=== PATIENT | female | born 1950 | race Hispanic/Latino ===

== ENCOUNTER 2019-06-15 12:25 | Emergency (ER) | payer OTHER ==
--- OUTSIDE RECORDS SUMMARY | 2019-06-15 12:27 | XMS REPORT | Clinical Summary ---
:1950 Author Organization [facility] Address [address] [place] [address] Care Team Providers Name Role Phone Asked, No Pcp Primary Care Provider Unavailable Allergies Active Allergy Reactions Severity Noted Date Comments Ciprofloxacin Rash Low 02/22/2017 Penicillins Hives 02/22/2017 Medications Medication Sig Dispensed Refills Start Date End Date Status lactulose (CHRONULAC) 10 0 02/04/2017 Active gram/15 mL solution propranolol LA (INDERAL 0 02/18/2017 Active LA) 60 MG 24 hr capsule XIFAXAN 550 mg tablet 0 01/28/2017 Active furosemide (LASIX) 20 mg 0 12/27/2016 Active tablet enoxaparin (LOVENOX) 100 0 02/18/2017 Active mg/mL syringe spironolactone Take 100 mg by 0 Active (ALDACTONE) 100 MG tablet mouth daily. Active Problems Problem Noted Date Postmenopausal bleeding 02/23/2017 Family History Medical History Relation Name Comments No Known Problems Father No Known Problems Mother Relation Name Status Comments Father Mother Social History Tobacco Use Types Packs/Day Years Used Date Never Smoker Smokeless Tobacco: Never Used Alcohol Use Drinks/Week oz/Week Comments No Sex Assigned at Date Recorded Not on file Job Start Date Occupation Industry Not on file Not on file Not on file Travel History Travel Start Travel End No recent travel history available. Last Filed Vital Signs Not on file Plan of Treatment Health Maintenance Due Date Last Done Comments BREAST CANCER SCREENING 2000 COLONOSCOPY SCREENING 2000 SHINGLES VACCINES (#1) 2000 65+ PNEUMOCOCCAL VACCINE (1 of 2 - PCV13) 2015 INFLUENZA VACCINE 05/17/2019 Results Not on fileafter 06/14/2018 Insurance Payer Benefit Plan / Subscriber ID Effective Dates Phone Address Type Group MEDICARE MEDICARE PART A xxxxxxxxxx 2015-Present [place], [place] Medicare AND B Advance Directives For more information, please contact: [phone] Type Date Recorded Patient Puller Through Explanation Advance Directives, Living Will and Medical Power of Hack Driver
--- OUTSIDE RECORDS SUMMARY | 2019-06-15 12:27 | XMS REPORT | Clinical Summary ---
:1950 Author Organization [facility] Address [address] [place] [address] Care Team Providers Name Role Phone Cristi Neal Primary Care Provider Allergies Active Allergy Reactions Severity Noted Date Comments Ciprofloxacin Other (See Comments) 12/08/2015 Redness at injection site Penicillins Rash Low 11/05/2015 Medications Medication Sig Dispensed Refills Start Date End Date Status furosemide (LASIX) Take 20 mg 0 Active 20 MG tablet by mouth daily. rifAXIMin 550 mg Take 1 180 tablet 1 12/15/2018 Active TabIndications: tablet (550 Hepatic mg total) by encephalopathy mouth 2 (HCC), Other (two) times cirrhosis of liver daily. (HCC), Other ascites, Screening for cancer, Portal hypertension (HCC), Hyperkalemia lactulose Take 30 mLs 2700 mL 0 06/05/2019 Active (CHRONULAC) 10 (20 g total) gram/15 mL (15 mL) by mouth 3 solution (three) times daily. lactulose Take 30 mLs 2700 mL 9 05/03/2017 07/25/2018 Discontinued (CHRONULAC) 20 (20 g total) gram/30 mL by mouth 3 solutionIndications: (three) Other cirrhosis of times daily. liver (HCC), Other ascites, Hepatic encephalopathy (HCC), Screening for cancer, Portal hypertension (HCC), Hyperkalemia rifAXIMin 550 mg Take 1 60 tablet 6 11/03/2017 12/15/2018 Discontinued TabIndications: tablet (550 Hepatic mg total) by encephalopathy mouth 2 (HCC), Other (two) times cirrhosis of liver daily. (HCC), Other ascites, Screening for cancer, Portal hypertension (HCC), Hyperkalemia spironolactone Take 1 90 tablet 2 01/02/2018 01/02/2019 (ALDACTONE) 50 MG tablet (50 tabletIndications: mg total) by Other cirrhosis of mouth daily. liver (HCC), Other ascites, Hepatic encephalopathy (HCC), Screening for cancer, Portal hypertension (HCC), Hyperkalemia furosemide (LASIX) Take 1 90 tablet 2 04/10/2018 07/25/2018 Discontinued 20 MG tablet (20 tabletIndications: mg total) by Other cirrhosis of mouth daily. liver (HCC), Other ascites, Hepatic encephalopathy (HCC), Screening for cancer, Portal hypertension (HCC), Hyperkalemia Active Problems Problem Noted Date Abnormal magnetic resonance imaging of chest 04/21/2018 Screening for cancer 10/26/2016 Fatty liver disease, nonalcoholic 05/04/2016 Acute kidney injury 11/08/2015 Acute confusion 11/07/2015 Cirrhosis 11/05/2015 Last Assessment & Plan: Cirrhosis with decompensation symptoms (ascites, varices) diagnosed via CT imaging in September 2015. Etiology unknown at this time. ethnicity and obesity are risk factors for cirrhosis due to non-alcoholic fatty liver disease. Full hepatic work workup and MRI ordered today to screen for viral, autoimmune and genetic causes of liver disease. Ascites 11/05/2015 Last Assessment & Plan: Ascites for diagnosed with admission to outside hospital in August 2015 and September 2015. Treated with lasix 20 mg and spironolactone 100 mg daily. Mild edema in lower extremity today. No history of Paracentesis. Discussed importance of compliance with medications and following a low sodium diet restricted to less than 2000 mg sodium per day. Low salt recipes and educational information provided. Immunity status testing 11/05/2015 Last Assessment & Plan: Serologies for HAV, HBV and HCV ordered today to screen for prior exposure to HBV or HCV and vaccination for HAV and HBV. Portal hypertension 11/05/2015 Last Assessment & Plan: CT scan in September 2015 revealed large recannulized umbilical vein and numerous abdominal and pelvic varices. Treated with propranolol 60 mg per day and diuretics. Obesity 11/05/2015 Last Assessment & Plan: BMI today 29.86 which places her at risk for fatty liver. Stressed the importance of a 10% weight loss over the next 6 months with low carbohydrate diet and increased exercise. Educational materials and low calorie recipes provided. Fatigue 11/05/2015 Last Assessment & Plan: Patient complains of increasing fatigue over the past few months. TSH ordered to screen for hypothyroid state. Hepatic encephalopathy 11/05/2015 Last Assessment & Plan: Symptoms of increased confusion and memory loss over the past 2 months was reported by daughter and . Tremor but no definite asterixis today. Xifaxan 550 mg BID prescribed. Family educated regarding the importance of taking the medication to reduce ammonia in the bloodstream and that the ammonia causes confusion. Encounters Date Type Specialty Care Team Description 06/15/2019 Telephone Transplant Hepatology Jeniffer Patel RN 06/08/2019 Telephone Hepatology Kristal Callejas, orders RN 06/05/2019 Orders Only Hepatology Kristal Callejas, Other cirrhosis of liver ( HCC); RN Other ascites; Hepatic encephalopathy (HCC); Screening for cancer; Portal hypertension (HCC); Hyperkalemia 12/19/2018 Abstract Hepatology Monserrat Guillaume RN 12/15/2018 Telephone Hepatology Monserrat Guillaume Pa for Xifaxan Ismael RN 12/15/2018 Orders Only HepatMonserrat Izquierdo Hepatic encephalopathy ( HCC); Ismael RN Other cirrhosis of liver (HCC); Other ascites; Screening for cancer; Portal hypertension (HCC); Hyperkalemia 08/07/2018 Anesthesia Event Gastroenterology Brittany Springer 08/07/2018 Surgery Gastroenterology bOed James UPPER ENDOSCOPY MD Bairon 08/07/2018 [facility] Gastroenterology Obed James Encounter MD Bairon 07/25/2018 Hospital Pre-Admission Testing Resource, [facility] Encounter Preadmit Phone 07/13/2018 Telephone Hepatology Marcella Casiano Procedure (EGD/MAC) L 07/12/2018 Telephone Hepatology Marcella Casiano Procedure (reminder L letter) after 06/14/2018 Social History Tobacco Use Types Packs/Day Years Used Date Former Smoker 0.25 0.5 Quit: 10/17/1995 Smokeless Tobacco: Never Used Comments: States she never really smoked. Alcohol Use Drinks/Week oz/Week Comments No social, last drink was Aug 2015 Sex Assigned at Date Recorded Not on file Job Start Date Occupation Industry Not on file Not on file Not on file Travel History Travel Start Travel End No recent travel history available. Last Filed Vital Signs Vital Sign Reading Time Taken Blood Pressure 117/58 08/07/2018 10:00 AM CDT Pulse 73 08/07/2018 10:00 AM CDT Temperature 37 C (98.6 F) 08/07/2018 10:00 AM CDT Respiratory Rate 18 08/07/2018 10:00 AM CDT Oxygen Saturation 99% 08/07/2018 10:00 AM CDT Inhaled Oxygen Concentration - - Weight 96.1 kg (211 lb 15.4 oz) 08/07/2018 6:36 AM CDT Height 165.1 cm (5' 5") 08/07/2018 6:36 AM CDT Body Mass Index 35.27 08/07/2018 6:36 AM CDT Plan of Treatment Date Type Specialty Care Team Description 07/02/2019 Office Visit Hepatology Obed James MD [address] [address] Resource, [facility] E Procedures Procedure Name Priority Date/Time Associated Comments Diagnosis REPORT OF PROCEDURE 08/07/2018 9:36 - ENDOSCOPY URL AM CDT TISSUE EXAM AP Routine 08/07/2018 9:14 Results for this AM CDT procedure are in the results section. UPPER 08/07/2018 8:00 Cancer screening ENDOSCOPY,BIOPSY AM CDT UPPER ENDOSCOPY 08/07/2018 8:00 Cancer screening AM CDT after 06/14/2018 Results REPORT OF PROCEDURE - ENDOSCOPY URL (08/07/2018 9:36 AM CDT) Narrative Performed At Tissue Exam (08/07/2018 9:14 AM CDT) Case Report Surgical Pathology Report Case: [id number] Authorizing Provider:Obed James MDCollected: 08/07/2018 0914 [facility] Ordering Location: [facility] Endoscopy Received: 08/07/2018 1134 Services Pathologist: Constantine Linn MD Specimens: A) - Small Bowel, NOS B) - Antrum DIAGNOSIS PART A SMALL INTESTINE, BIOPSY: SMALL INTESTINAL MUCOSA WITH PRESERVED VILLOUS ARCHITECTURE. [facility] NO GRANULOMAS, ULCERATION, DYSPLASIA, OR INVASIVE CARCINOMA SEEN. PART B GASTRIC ANTRUM, BIOPSY: MILD CHRONIC INACTIVE GASTRITIS. WARTHIN STARRY STAIN FOR HELICOBACTER IS NEGATIVE. Signing Pathologist Direct Phone Line: [phone] CPT Code(s) 83683I4, 42171 [facility] CLINICAL HISTORY Cancer screening [facility] SPECIMEN SOURCE A. Small bowel. B. Antrum [facility] GROSS DESCRIPTION Specimen is received in two containers of formalin both labeled with the patient's information. [facility] Specimen A: Labeled "small bowel biopsy" consists of a 0.2 cm fragment of eng tissue submitted in A1. Specimen B: Labeled "antrum" consists of two fragments of eng tissue measuring 0.1 and 0.3 cm, submitted in B1. CG/ew MICROSCOPIC DESCRIPTION PERFORMED. [facility] SPECIAL STUDIES The following special studies were performed on this case and the interpretation is incorporated in the diagnostic report above: BLOCK B1- GALLO MORAGARY [facility] Specimen Tissue Tissue - Pyloric antrum structure (body structure) Performing Organization Address City/State/Zipcode Phone Number [facility] [address] [place] [address] CENTER after 06/14/2018 Insurance Payer Benefit Plan / Group Subscriber ID Type Phone Address MEDICARE MEDICARE A B xxxxxxxxxxx Medicare Advance Directives For more information, please contact:[address] [phone] Code Status Date Activated Date Inactivated Comments Full Code 11/08/2015 6:44 AM 11/11/2015 3:02 PM This code status was determined by: Patient
[2019-06-15 13:27] LABS: Hematocrit 26.3 % (36.0-45.0); MPV 8.3 fL (7.6-11.3); RBC Red Blood Cell Count 3.35 M/uL (3.86-4.86)
[2019-06-15 13:39] LABS: Potassium 4.2 mmol/L (3.5-5.1)
--- NOTE | 2019-06-15 14:07 | EDPHYS ---
Physician Documentation [facility] Name: Nelda Ramírez Age: 68 yrs Sex: Female : 1950 Arrival Date: 06/15/2019 Time: 12:28 Bed 16 Private MD: ED Physician Rangel Rajput HPI: 06/15 15:54 This 68 yrs old Female presents to ER via Ambulatory with complaints of kdr Abnormal Lab Results - Low Hgb. 15:54 The patient had routine blood draw today and her Hgb was noted to be low and she was kdr sent to the ED for further eval. Onset: The symptoms/episode began/occurred gradually, this morning. Severity of symptoms: At their worst the symptoms were mild in the emergency department the symptoms are unchanged. The patient has not experienced similar symptoms in the past. The patient has been recently seen by a physician: the patient's primary care provider. Historical: - Allergies: 12:34 Aspirin; sv 12:34 PENICILLINS; sv - PMHx: 12:34 CHF; Cirrhosis; sv - PSHx: 12:34 None; sv - Immunization history:: Adult Immunizations up to date. - Social history:: Smoking status: Patient/guardian denies using tobacco. - Ebola Screening: : No symptoms or risks identified at this time. ROS: 15:54 Constitutional: Negative for fever, chills, and weight loss, Eyes: Negative for injury, kdr pain, redness, and discharge, ENT: Negative for injury, pain, and discharge, Neck: Negative for injury, pain, and swelling, Cardiovascular: Negative for chest pain, palpitations, and edema, Respiratory: Negative for appareant shortness of breath, cough, wheezing, and pleuritic chest pain. She does state that with walk short to moderate distances, she can become SOB but has no other concerns Back: Negative for injury and pain, : Negative for injury, bleeding, discharge, and swelling, MS/Extremity: Negative for injury and deformity, Skin: Negative for injury, rash, and discoloration, Neuro: Negative for headache, weakness, numbness, tingling, and seizure activity. Psych: Negative for depression, anxiety, suicide ideation, homicidal ideation, and hallucinations, Allergy/Immunology: Negative for hives, rash, and allergies, Endocrine: Negative for neck swelling, polydipsia, polyuria, polyphagia, and marked weight changes, Hematologic/Lymphatic: Negative for swollen nodes, abnormal bleeding, and unusual bruising. 15:54 Abdomen/GI: Positive for abdominal pain, abdominal cramps, Negative for nausea, vomiting, and diarrhea, abdominal distension, black/tarry stool, rectal pain, rectal bleeding, bowel incontinence. Exam: 15:54 Constitutional: This is a well developed, well nourished patient who is awake, alert, kdr and in no acute distress. Head/Face: Normocephalic, atraumatic. Eyes: Pupils equal round and reactive to light, extra-ocular motions intact. Lids and lashes normal. Conjunctiva and sclera are non-icteric and not injected. Cornea within normal limits. Periorbital areas with no swelling, redness, or edema. Neck: Trachea midline, no thyromegaly or masses palpated, and no cervical lymphadenopathy. Supple, full range of motion without nuchal rigidity, or vertebral point tenderness. No Meningismus. Chest/axilla: Normal chest wall appearance and motion. Nontender with no deformity. No lesions are appreciated. Cardiovascular: Regular rate and rhythm with a normal S1 and S2. No gallops, murmurs, or rubs. Normal PMI, no JVD. No pulse deficits. Respiratory: Lungs have equal breath sounds bilaterally, clear to auscultation and percussion. No rales, rhonchi or wheezes noted. No increased work of breathing, no retractions or nasal flaring. Abdomen/GI: Soft, non-tender, with normal bowel sounds. No distension or tympany. No guarding or rebound. No evidence of tenderness throughout. Vital Signs: 12:34 BP 125 / 45; Pulse 95; Resp 22; Temp 98.2; Pulse Ox 97% ; Weight 90.72 kg; Pain 0/10; sv 14:00 BP 122 / 52; Pulse 88; Resp 17 S; Pulse Ox 98% on R/A; sg MDM: 14:05 Patient medically screened. kdr 15:59 Data reviewed: vital signs, nurses notes, lab test result(s). Counseling: I had a kdr detailed discussion with the patient and/or guardian regarding: the historical points, exam findings, and any diagnostic results supporting the discharge/admit diagnosis, lab results, radiology results, the need for outpatient follow up. Physician consultation: Cristi Neal MD regarding patient's condition, and will see patient in office, next week. 06/15 12:51 Order name: CBC with Diff kdr 06/15 12:51 Order name: Chem 7; Complete Time: 13:48 kdr 06/15 12:51 Order name: Type And Screen kdr 06/15 13:48 Order name: Manual Differential EDMS 06/15 14:31 Order name: ABO/RH no charge EDMS Administered Medications: No medications were administered Disposition: 06/15/19 14:05 Discharged to Home. Impression: Anemia, unspecified. - Condition is Stable. - Discharge Instructions: Anemia, Nonspecific. - Medication Reconciliation Form, Thank You Letter form. - Follow up: Cristi Neal MD; When: 1 week; Reason: If symptoms return, Further diagnostic work-up, Recheck today's complaints, Continuance of care, Re-evaluation by your physician. - Problem is new. - Symptoms have improved. - Notes: Please follow-up with Dr. Neal this next week for further evaluation. Signatures: Dispatcher [employer] EDSD Daja Avila RN RN Rangel Rajput MD MD [facility] Taya [place] [employer]: (The following items were deleted from the chart) 14:42 14:05 06/15/2019 14:05 Discharged to Home. Impression: Anemia, unspecified. Condition eb is Stable. Forms are Medication Reconciliation Form, Thank You Letter, Antibiotic Education, Prescription Opioid Use. Follow up: Cristi Neal; When: 1 week; Reason: If symptoms return, Further diagnostic work-up, Recheck today's complaints, Continuance of care, Re-evaluation by your physician. Problem is new. Symptoms have improved. kdr 15:59 15:54 Constitutional: Negative for fever, chills, and weight loss, Eyes: Negative for kdr injury, pain, redness, and discharge, ENT: Negative for injury, pain, and discharge, Neck: Negative for injury, pain, and swelling, Cardiovascular: Negative for chest pain, palpitations, and edema, Respiratory: Negative for shortness of breath, cough, wheezing, and pleuritic chest pain, Back: Negative for injury and pain, : Negative for injury, bleeding, discharge, and swelling, MS/Extremity: Negative for injury and deformity, Skin: Negative for injury, rash, and discoloration, Neuro: Negative for headache, weakness, numbness, tingling, and seizure activity. Psych: Negative for depression, anxiety, suicide ideation, homicidal ideation, and hallucinations, Allergy/Immunology: Negative for hives, rash, and allergies, Endocrine: Negative for neck swelling, polydipsia, polyuria, polyphagia, and marked weight changes, Hematologic/Lymphatic: Negative for swollen nodes, abnormal bleeding, and unusual bruising, kdr
--- NOTE | 2019-06-15 14:07 | ER ---
Nurse's Notes [facility] Name: Nelda Ramírez Age: 68 yrs Sex: Female : 1950 Arrival Date: 06/15/2019 Time: 12:28 Bed 16 Private MD: Diagnosis: Anemia, unspecified Presentation: 06/15 12:33 Presenting complaint: Patient states: sent for low hemoglobin that was drawn today. c/o sv SOB. Transition of care: patient was not received from another setting of care. Onset of symptoms was June 15, 2019. Risk Assessment: Do you want to hurt yourself or someone else? Patient reports no desire to harm self or others. Initial Sepsis Screen: Does the patient meet any 2 criteria? No. Patient's initial sepsis screen is negative. Does the patient have a suspected source of infection? No. Patient's initial sepsis screen is negative. Care prior to arrival: None. 12:33 Method Of Arrival: Ambulatory sv 12:33 Acuity: SERGIO 3 sv Triage Assessment: 12:33 General: Appears in no apparent distress. comfortable, Behavior is calm, cooperative, sv appropriate for age. Neuro: Level of Consciousness is awake, alert, obeys commands, Oriented to person, place, time, situation, Gait is steady. Respiratory: Reports shortness of breath on exertion Respiratory effort is even, unlabored, Respiratory pattern is regular, symmetrical. Historical: - Allergies: 12:34 Aspirin; sv 12:34 PENICILLINS; sv - PMHx: 12:34 CHF; Cirrhosis; sv - PSHx: 12:34 None; sv - Immunization history:: Adult Immunizations up to date. - Social history:: Smoking status: Patient/guardian denies using tobacco. - Ebola Screening: : No symptoms or risks identified at this time. Screenin:20 Abuse screen: Denies threats or abuse. Denies injuries from another. Nutritional sg screening: No deficits noted. Tuberculosis screening: No symptoms or risk factors identified. Fall Risk None identified. Assessment: 13:20 General: Appears in no apparent distress. well groomed, well developed, well nourished, sg Behavior is calm, cooperative, appropriate for age, Reports fatigue for 1-2 days. Pain: Denies pain. Neuro: Level of Consciousness is awake, alert, obeys commands, Oriented to person, place, time, situation, Music Journalist are equal bilaterally Speech is normal, Facial symmetry appears normal. Cardiovascular: Capillary refill is brisk in bilateral fingers Patient's skin is warm and dry. Chest pain is denied. Respiratory: Airway is patent Respiratory effort is even, unlabored, Respiratory pattern is regular, symmetrical. GI: Abdomen is round non-distended, Bowel sounds present X 4 quads. Reports normal bowel habits, tolerance of fluids, tolerance of food. : No signs and/or symptoms were reported regarding the genitourinary system. EENT: No signs and/or symptoms were reported regarding the EENT system. Derm: Skin is pink, warm \T\ dry. Musculoskeletal: No signs and/or symptoms reported regarding the musculoskeletal system. Vital Signs: 12:34 BP 125 / 45; Pulse 95; Resp 22; Temp 98.2; Pulse Ox 97% ; Weight 90.72 kg; Pain 0/10; sv 14:00 BP 122 / 52; Pulse 88; Resp 17 S; Pulse Ox 98% on R/A; sg ED Course: 12:28 Patient arrived in ED. ag3 12:29 Rangel Rajput MD is Attending Physician. kdr 12:33 Triage completed. sv 12:34 Arm band placed on. sv 12:38 Gordon Owusu, GLADIS is Primary Nurse. sg 12:40 tire bladder maker on. Pulse ox on. NIBP on. Warm blanket given. Head of bed elevated. sg 13:20 Initial lab(s) drawn, by me, sent to lab. Inserted saline lock: 20 gauge in left sg antecubital area, using aseptic technique. Blood collected. 14:04 Crisit Neal MD is Referral Physician. kdr 14:10 Patient has correct armband on for positive identification. Bed in low position. Call sg light in reach. Side rails up X2. 14:30 No provider procedures requiring assistance completed. IV discontinued, intact, sg bleeding controlled, No redness/swelling at site. Pressure dressing applied. Administered Medications: No medications were administered Outcome: 14:05 Discharge ordered by . kdr 14:30 Discharged to home ambulatory, with friend. sg 14:30 Condition: good 14:30 Discharge instructions given to patient, Instructed on discharge instructions, follow up and referral plans. safety practices, Anemia care at home, dietary recommendations Demonstrated understanding of instructions, follow-up care. 14:42 Patient left the ED. eb Signatures: Austin, Daja, GLADIS RN Gordon Hernández RN RN sg Rittger, Kevin, MD MD kdr Botello, Elizabeth eb Gomez, Alice ag3
[2019-06-15 14:53] VITALS: BP 125/45; TEMP 98.2; O2SAT 97
[2019-06-15 16:27] LABS: Blood Morphology Comment NOT SEEN (NOT SEEN); Platelet Estimate DECR
== END 2019-06-15 14:42 | disposition home or self-care (01) ==
LOC: ER 12:25
DX: D64.9 Anemia, unspecified (principal); Z88.0 Allergy status to penicillin; Z88.6 Allergy status to analgesic agent
CPT/HCPCS: 36415; 80048; 80076; 82105; 85025; 85610; 86850; 86900; 86901; 99284

== ENCOUNTER 2019-09-23 10:48 | Inpatient (IN) | payer OTHER ==
--- OUTSIDE RECORDS SUMMARY | 2019-09-23 10:51 | XMS REPORT ---
:1950 [facility] [address] [place] [address] Care Team Providers Name Role Phone KIERA WALTON Unavailable Unavailable CHRIS CLEMENTS Unavailable Unavailable OBED JAMES Unavailable Unavailable Problems This patient has no known problems. Allergies, Adverse Reactions, Alerts This patient has no known allergies or adverse reactions. Medications This patient has no known medications. Results Test Description Test Time Test Comments Text Results Atomic Results Result Comments LACTIC ACID, VENOUS 2019-09-19 09:40:00 Test Item Value Reference Range Comments LACTATE BLOOD VENOUS (2) (BEAKER) 2.7 mmol/L 0.5-2.2 Specimen slightly hemolyzed (test furs=9445) Specimen slightly ictericCOMPREHENSIVE METABOLIC [id number] 09:31:00 Test Item Value Reference Range Comments TOTAL PROTEIN (BEAKER) 6.4 gm/dL 6.0-8.3 (test wgca=892) ALBUMIN (BEAKER) (test 2.5 g/dL 3.5-5.0 lpbc=9772) ALKALINE PHOSPHATASE 141 U/L 40-150 (BEAKER) (test dkej=200) BILIRUBIN TOTAL (BEAKER) 2.1 mg/dL 0.2-1.2 (test zhkp=439) SODIUM (BEAKER) (test 138 meq/L 136-145 kscw=448) POTASSIUM (BEAKER) (test 3.9 meq/L 3.5-5.1 wisa=477) CHLORIDE (BEAKER) (test 102 meq/L 98-107 zluu=864) CO2 (BEAKER) (test 31 meq/L 22-29 eftt=876) BLOOD UREA NITROGEN 15 mg/dL 7-21 (BEAKER) (test gzwe=864) CREATININE (BEAKER) (test 0.78 mg/dL 0.57-1.25 ygkq=951) GLUCOSE RANDOM (BEAKER) 111 mg/dL 70-105 (test vznl=811) CALCIUM (BEAKER) (test 8.3 mg/dL 8.4-10.2 dqbo=399) AST (SGOT) (BEAKER) (test 37 U/L 5-34 rmwc=202) ALT (SGPT) (BEAKER) (test 20 U/L 6-55 apwd=198) EGFR (BEAKER) (test 73 mL/min/1.73 sq m ESTIMATED GFR IS NOT sxdd=3471) ACCURATE CREATININE CLEARANCE IN PREDICTING GLOMERULAR FILTRATION RATE. ESTIMATED GFR IS NOT APPLICABLE FOR DIALYSIS PATIENTS. Specimen slightly ictericCBC W/PLT COUNT & AUTO [id number] 09:24 :00 Test Item Value Reference Range Comments WHITE BLOOD CELL COUNT (BEAKER) (test oeyr=542) 4.7 K/ L 3.5-10.5 RED BLOOD CELL COUNT (BEAKER) (test wwzj=814) 3.37 M/ L 3.93-5.22 HEMOGLOBIN (BEAKER) (test taww=379) 9.0 GM/DL 11.2-15.7 HEMATOCRIT (BEAKER) (test cpfg=550) 30.6 % 34.1-44.9 MEAN CORPUSCULAR VOLUME (BEAKER) (test ubhm=692) 90.8 fL 79.4-94.8 MEAN CORPUSCULAR HEMOGLOBIN (BEAKER) (test 26.7 pg 25.6-32.2 buis=615) MEAN CORPUSCULAR HEMOGLOBIN CONC (BEAKER) (test 29.4 GM/DL 32.2-35.5 lysz=116) RED CELL DISTRIBUTION WIDTH (BEAKER) (test 18.9 % 11.7-14.4 jyyr=000) PLATELET COUNT (BEAKER) (test nbmj=505) 66 K/CU MM 150-450 MEAN PLATELET VOLUME (BEAKER) (test fcyi=604) 10.8 fL 9.4-12.3 NUCLEATED RED BLOOD CELLS (BEAKER) (test 0 /100 WBC 0-0 goje=993) NEUTROPHILS RELATIVE PERCENT (BEAKER) (test 81 % ceao=612) LYMPHOCYTES RELATIVE PERCENT (BEAKER) (test 9 % wnoe=052) MONOCYTES RELATIVE PERCENT (BEAKER) (test 9 % ftcs=025) EOSINOPHILS RELATIVE PERCENT (BEAKER) (test 1 % tkua=009) BASOPHILS RELATIVE PERCENT (BEAKER) (test 1 % eziu=030) NEUTROPHILS ABSOLUTE COUNT (BEAKER) (test 3.81 K/ L 1.56-6.13 erki=667) LYMPHOCYTES ABSOLUTE COUNT (BEAKER) (test 0.40 K/ L 1.18-3.74 leky=547) MONOCYTES ABSOLUTE COUNT (BEAKER) (test peza=084) 0.41 K/ L 0.24-0.36 EOSINOPHILS ABSOLUTE COUNT (BEAKER) (test 0.03 K/ L 0.04-0.36 cale=233) BASOPHILS ABSOLUTE COUNT (BEAKER) (test njkv=380) 0.04 K/ L 0.01-0.08 IMMATURE GRANULOCYTES-RELATIVE PERCENT (BEAKER) 1 % 0-1 (test ppad=4752) RAD, CHEST, 1 VIEW, NON [id number] 09:00:00Referring: Dr. Eric Morel for exam:->SHORTNESS OF BREATHShould this be performed at the bedside?-> YesFINAL REPORT INDICATION: SHORTNESS OF BREATH COMPARISON: September 10, 2019 TECHNIQUE: Frontal and lateral views of the chest. IMPRESSION:Limited by underpenetration and patient positioning.Lungs and pleura: Coarsened interstitial markings representing chronic interstitial lung disease unchanged from prior examination. No discernible new consolidation or effusion.Heart and mediastinum: Normal heart size. Unremarkable mediastinal contours.Osseous structures: No acute abnormality.Additional findings: None. Signed: JR Varela Robert MDReport Verified Date/Time: 09/19/201909:00: 49 Reading Location: [facility] Radiology Reading Room BLOOD [id number] 01:00:00 Test Item Value Reference Range Comments CULTURE (BEAKER) (test vivu=6635) No growth in 5 days BLOOD [id number] 01:00:00 Test Item Value Reference Range Comments CULTURE (BEAKER) (test uyir=1853) No growth in 5 days COMPREHENSIVE METABOLIC [id number] 07:18:00 Test Item Value Reference Range Comments TOTAL PROTEIN (BEAKER) 5.2 gm/dL 6.0-8.3 (test yscx=135) ALBUMIN (BEAKER) (test 2.1 g/dL 3.5-5.0 pput=0027) ALKALINE PHOSPHATASE 110 U/L 40-150 (BEAKER) (test inrl=813) BILIRUBIN TOTAL (BEAKER) 1.6 mg/dL 0.2-1.2 (test swxe=912) SODIUM (BEAKER) (test 137 meq/L 136-145 brcw=267) POTASSIUM (BEAKER) (test 3.6 meq/L 3.5-5.1 mmwj=036) CHLORIDE (BEAKER) (test 106 meq/L 98-107 hxuu=726) CO2 (BEAKER) (test 29 meq/L 22-29 gtet=307) BLOOD UREA NITROGEN 14 mg/dL 7-21 (BEAKER) (test qmyu=970) CREATININE (BEAKER) (test 0.73 mg/dL 0.57-1.25 pgav=112) GLUCOSE RANDOM (BEAKER) 94 mg/dL 70-105 (test lyqw=845) CALCIUM (BEAKER) (test 7.7 mg/dL 8.4-10.2 tedu=353) AST (SGOT) (BEAKER) (test 31 U/L 5-34 cdez=817) ALT (SGPT) (BEAKER) (test 13 U/L 6-55 omci=886) EGFR (BEAKER) (test 79 mL/min/1.73 sq m ESTIMATED GFR IS NOT txmg=8542) ACCURATE CREATININE CLEARANCE IN PREDICTING GLOMERULAR FILTRATION RATE. ESTIMATED GFR IS NOT APPLICABLE FOR DIALYSIS PATIENTS. LACTIC ACID, [id number] 06:20:00 Test Item Value Reference Range Comments LACTATE BLOOD VENOUS (2) (BEAKER) (test 1.2 mmol/L 0.5-2.2 exon=7250) CBC W/PLT COUNT & AUTO [id number] 06:02:00 Test Item Value Reference Range Comments WHITE BLOOD CELL COUNT (BEAKER) (test fdoc=618) 3.2 K/ L 3.5-10.5 RED BLOOD CELL COUNT (BEAKER) (test kpoh=052) 2.99 M/ L 3.93-5.22 HEMOGLOBIN (BEAKER) (test xzyz=949) 7.8 GM/DL 11.2-15.7 HEMATOCRIT (BEAKER) (test sawv=598) 26.6 % 34.1-44.9 MEAN CORPUSCULAR VOLUME (BEAKER) (test lybq=478) 89.0 fL 79.4-94.8 MEAN CORPUSCULAR HEMOGLOBIN (BEAKER) (test 26.1 pg 25.6-32.2 uxod=282) MEAN CORPUSCULAR HEMOGLOBIN CONC (BEAKER) (test 29.3 GM/DL 32.2-35.5 dzoj=471) RED CELL DISTRIBUTION WIDTH (BEAKER) (test 18.5 % 11.7-14.4 oyly=738) PLATELET COUNT (BEAKER) (test jhkc=684) 49 K/CU MM 150-450 MEAN PLATELET VOLUME (BEAKER) (test jnjd=859) 9.8 fL 9.4-12.3 NUCLEATED RED BLOOD CELLS (BEAKER) (test 0 /100 WBC 0-0 wqes=021) NEUTROPHILS RELATIVE PERCENT (BEAKER) (test 60 % yqrl=222) LYMPHOCYTES RELATIVE PERCENT (BEAKER) (test 24 % vdqh=225) MONOCYTES RELATIVE PERCENT (BEAKER) (test 13 % vcyz=249) EOSINOPHILS RELATIVE PERCENT (BEAKER) (test 3 % hvno=708) BASOPHILS RELATIVE PERCENT (BEAKER) (test 1 % amtn=823) NEUTROPHILS ABSOLUTE COUNT (BEAKER) (test 1.91 K/ L 1.56-6.13 segj=445) LYMPHOCYTES ABSOLUTE COUNT (BEAKER) (test 0.75 K/ L 1.18-3.74 wzol=405) MONOCYTES ABSOLUTE COUNT (BEAKER) (test liox=662) 0.41 K/ L 0.24-0.36 EOSINOPHILS ABSOLUTE COUNT (BEAKER) (test 0.09 K/ L 0.04-0.36 zbbk=254) BASOPHILS ABSOLUTE COUNT (BEAKER) (test irrv=891) 0.02 K/ L 0.01-0.08 IMMATURE GRANULOCYTES-RELATIVE PERCENT (BEAKER) 0 % 0-1 (test mqlb=2994) U/S, ABDOMINAL, [id number] 02:23:00Referring: Dr. Eric Mottabdinova [facility]? Add comment if clarification is needed.->LiverReason for exam:- >ABDOMINAL PAINReason for exam:->known cirrhosis concerned about increased ascitisShould this be performed at the bedside?->YesFINAL REPORT History: Abdominal pain, known cirrhosis, concerned about increased ascites Abdominal ultrasound dated 09/11/2019 Comparison: None Comment: Real-time transabdominal ultrasound of the right upper quadrant abdomen was performed. Liver: 7.7 cm , normal. Coarse parenchymal echogenicity with a nodular contour consistent with cirrhosis. No focal lesions. Gallbladder : No gallstones. Diffuse gallbladder wall thickening, measuring 5 mm. No perocholecystic fluid.. No sonographic Chen's sign. Biliary tree: No intrahepatic ductal dilatation. CBD: 4 mm. MPV: 15 mm. A periumbilical collateral vessel is identified. Pancreas: Unremarkable. Right kidney: 11.1 x 5.1 x 4.7 cm. Normal echogenicity. Moderate to large volume ascites is present in the abdomen. The visualizedabdominal aorta is normal in caliber. The IVC and Hepatic veins are patent. Impression: Cirrhosis and evidence of portal hypertension, including moderate to large volume ascites. Signed: Julian Tian Verified Date/Time: 09/11/2019 02:23:37 CT, CHEST, WITHOUT [id number] 18:38:00Referring: Dr. Eric Morel for exam:-> ABDOMINAL PAINWhat is the patient's sedation requirement?->No SedationFINAL REPORT TECHNIQUE: CT of the chest WITHOUT intravenous contrast. Dose modulation, iterative reconstruction, and/or weight-based adjustment of the mA/kV was utilized to reduce the radiation dose to as low as reasonably achievable. INDICATION: 69-year-old woman with pneumoniaand abdominal pain. COMPARISON: Chest radiograph from earlier same date, abdomen MRI 01/19/2018. FINDINGS: ABSENCE OF INTRAVENOUS CONTRAST DECREASES SENSITIVITY FOR DETECTION OF FOCAL LESIONS AND VASCULAR PATHOLOGY. LINES/TUBES: None. LUNGS AND AIRWAYS: Central airways are patent. Bilateral subpleuralreticular opacities with traction bronchiectasis in both lung bases, right greater than left Subcentimeter calcified granuloma in the right middle lobe. PLEURA: The pleural spaces are clear. HEART AND MEDIASTINUM: The visualized thyroid gland is normal. No significant mediastinal, hilar, or axillary lymphadenopathy. Cardiomegaly. No pericardial effusion. Prominent main pulmonary artery measures approximately 3.2 cm in diameter and is suggestive of pulmonary hypertension. SOFT TISSUES AND BONES: Degenerative changes of the visualized spine. Soft tissues are unremarkable. UPPER ABDOMEN: Cirrhosis. Wedge-shaped hypodensities in the spleen, not visualized on prior MRI. Moderate volume ascites. IMPRESSION :Pulmonary findings likely represent an interstitial lung disease such as usual interstitial pneumonia (UIP) or nonspecific interstitial pneumonia (NSIP). Wedge -shaped hypodensities in the spleen, suggestive of infarcts. Cirrhosis with moderate volume ascites. Signed: Sheron Aranda MDReport Verified Date/Time: 09/10/2019 18:38:06 Reading Location: [facility] C013W Consult Reading Room POCT- LACTIC ACID, [id number] 16:53:00 Test Item Value Reference Range Comments POC-LACTIC ACID, VENOUS 3.1 mmol/L 0.9-1.7 [address]ED [address] ([place]) (test rshi=1035) [facility] [address] RAD, CHEST, 1 VIEW, NON [id number] 16:48:00Referring: Dr. Eric Morel for exam:->ABDOMINAL PAINShould this be performed at the bedside?-> YesFINAL REPORT EXAM: Frontal chest radiograph HISTORY PROVIDED: Abdominal pain COMPARISON: None available IMPRESSION:There is elevation of the right hemidiaphragm. There are bilateral airspace opacities particularly in the mid and lower lung zones bilaterally, left greater than right which are nonspecific and may represent multifocal pneumonitis, edema, with possible superimposedatelectasis. A CT can be performed for further evaluation. No discernible pneumothorax or large pleural effusion. The cardiac silhouette is partially obscured but appears enlarged. No acute osseous abnormality. Degenerative changes of the spine and shoulders are noted. Signed: Tunde Cruz MDReport Verified Date/Time: 09/10/2019 16:48:56 Reading Location: [facility] Mammo Reading Room BASIC METABOLIC [id number] 16:27:00 Test Item Value Reference Range Comments SODIUM (BEAKER) (test 136 meq/L 136-145 utxp=091) POTASSIUM (BEAKER) (test 3.9 meq/L 3.5-5.1 opif=107) CHLORIDE (BEAKER) (test 102 meq/L 98-107 sbki=520) CO2 (BEAKER) (test 25 meq/L 22-29 vdou=883) BLOOD UREA NITROGEN 13 mg/dL 7-21 (BEAKER) (test anfz=543) CREATININE (BEAKER) (test 0.83 mg/dL 0.57-1.25 atua=512) GLUCOSE RANDOM (BEAKER) 139 mg/dL 70-105 (test ecbb=675) CALCIUM (BEAKER) (test 8.1 mg/dL 8.4-10.2 sgtl=942) EGFR (BEAKER) (test 68 mL/min/1.73 sq m ESTIMATED GFR IS NOT yael=2224) ACCURATE CREATININE CLEARANCE IN PREDICTING GLOMERULAR FILTRATION RATE. ESTIMATED GFR IS NOT APPLICABLE FOR DIALYSIS PATIENTS. Specimen slightly ictericHEPATIC FUNCTION [id number] 16:27:00 Test Item Value Reference Range Comments TOTAL PROTEIN (BEAKER) (test ynzd=541) 6.2 gm/dL 6.0-8.3 ALBUMIN (BEAKER) (test vgxn=1390) 2.4 g/dL 3.5-5.0 BILIRUBIN TOTAL (BEAKER) (test syzz=068) 1.9 mg/dL 0.2-1.2 BILIRUBIN DIRECT (BEAKER) (test kkkr=431) 1.0 mg/dL 0.1-0.5 ALKALINE PHOSPHATASE (BEAKER) (test gwes=564) 138 U/L 40-150 AST (SGOT) (BEAKER) (test acob=284) 33 U/L 5-34 ALT (SGPT) (BEAKER) (test yhyf=250) 18 U/L 6-55 Specimen slightly ictericCBC W/PLT COUNT & AUTO [id number] 16:15 :00 Test Item Value Reference Range Comments WHITE BLOOD CELL COUNT (BEAKER) (test qyou=861) 4.7 K/ L 3.5-10.5 RED BLOOD CELL COUNT (BEAKER) (test tblo=353) 3.45 M/ L 3.93-5.22 HEMOGLOBIN (BEAKER) (test afif=763) 9.3 GM/DL 11.2-15.7 HEMATOCRIT (BEAKER) (test gcmo=175) 31.0 % 34.1-44.9 MEAN CORPUSCULAR VOLUME (BEAKER) (test vhpq=060) 89.9 fL 79.4-94.8 MEAN CORPUSCULAR HEMOGLOBIN (BEAKER) (test 27.0 pg 25.6-32.2 dvwa=619) MEAN CORPUSCULAR HEMOGLOBIN CONC (BEAKER) (test 30.0 GM/DL 32.2-35.5 rzeh=704) RED CELL DISTRIBUTION WIDTH (BEAKER) (test 18.1 % 11.7-14.4 vjkk=123) PLATELET COUNT (BEAKER) (test jtfk=302) 61 K/CU MM 150-450 MEAN PLATELET VOLUME (BEAKER) (test obdh=667) 10.5 fL 9.4-12.3 NUCLEATED RED BLOOD CELLS (BEAKER) (test 0 /100 WBC 0-0 vyqx=526) NEUTROPHILS RELATIVE PERCENT (BEAKER) (test 83 % tseg=083) LYMPHOCYTES RELATIVE PERCENT (BEAKER) (test 7 % wgtk=864) MONOCYTES RELATIVE PERCENT (BEAKER) (test 8 % kijd=585) EOSINOPHILS RELATIVE PERCENT (BEAKER) (test 0 % adal=885) BASOPHILS RELATIVE PERCENT (BEAKER) (test 0 % rfgy=548) NEUTROPHILS ABSOLUTE COUNT (BEAKER) (test 3.94 K/ L 1.56-6.13 avhb=314) LYMPHOCYTES ABSOLUTE COUNT (BEAKER) (test 0.33 K/ L 1.18-3.74 cqnm=487) MONOCYTES ABSOLUTE COUNT (BEAKER) (test kmdj=437) 0.38 K/ L 0.24-0.36 EOSINOPHILS ABSOLUTE COUNT (BEAKER) (test 0.02 K/ L 0.04-0.36 bbak=913) BASOPHILS ABSOLUTE COUNT (BEAKER) (test rjlk=298) 0.02 K/ L 0.01-0.08 IMMATURE GRANULOCYTES-RELATIVE PERCENT (BEAKER) 1 % 0-1 (test jnez=9816) TISSUE [id number] 15:15:00Surgical Pathology Report Case: [id number] Authorizing Provider: Obed James MD Collected: 08/13/2019 0950 Ordering Location: [facility] Endoscopy Received: 08/13/2019 1421 Services Pathologist: Constantine Linn MD Specimens: A) - Small Bowel, NOS, small bowel biopsy and antrum biopsy B) -Polyp, Colon - Sigmoid, sigmoid polyp - multiple PART A SMALL BOWEL AND GASTRIC ANTRUM BIOPSY:ANTRAL MUCOSA WITH NONSPECIFIC REACTIVE GASTROPATHY.SEPARATELY IDENTIFIED SMALL INTESTINAL MUCOSA WITH PRESERVED VILLOUS ARCHITECTURE.NO GRANULOMAS, DYSPLASIA, OR INVASIVE CARCINOMA SEEN.PART B SIGMOID COLON POLYP (multiple), POLYPECTOMY:HYPERPLASTIC POLYP, MULTIPLE. Signing Pathologist Direct Phone Line: [phone] signed by Constantine Linn MD on 08/14/2019 at 3:15 [id number] colonoscopyA. Small bowel, NOS, small bowel biopsy and antrum biopsy; B. Polyp, colon sigmoid, sigmoid polyp - multipleA. Received in 10% formaldehyde with patient's demographic information and surgical accession number are four nguyen- eng tissue fragments, 0.6 cm in aggregate. Submitted in toto in block A1. B. Received in 10% formaldehyde with patient's demographic information and surgical accession number are multiple nguyen-eng tissue fragments, 0.5 cm in aggregate. Submitted in toto in block B1. HL/plPerformed. [facility], Department of Pathology, [address] [place] [id number] , [facility], [address] [place] [address], [facility], [facility] of [facility], [address] [place] [address] , [facility]UU W/PLT COUNT & AUTO [id number] 07:33:00 Test Item Value Reference Range Comments WHITE BLOOD CELL COUNT (BEAKER) (test tvyw=928) 5.3 K/ L 3.5-10.5 RED BLOOD CELL COUNT (BEAKER) (test wcvq=964) 3.75 M/ L 3.93-5.22 HEMOGLOBIN (BEAKER) (test booe=885) 9.8 GM/DL 11.2-15.7 HEMATOCRIT (BEAKER) (test hysu=420) 33.1 % 34.1-44.9 MEAN CORPUSCULAR VOLUME (BEAKER) (test qqcm=080) 88.3 fL 79.4-94.8 MEAN CORPUSCULAR HEMOGLOBIN (BEAKER) (test 26.1 pg 25.6-32.2 ezla=440) MEAN CORPUSCULAR HEMOGLOBIN CONC (BEAKER) (test 29.6 GM/DL 32.2-35.5 esvb=833) RED CELL DISTRIBUTION WIDTH (BEAKER) (test 18.8 % 11.7-14.4 zkzz=658) PLATELET COUNT (BEAKER) (test rywe=229) 60 K/CU MM 150-450 MEAN PLATELET VOLUME (BEAKER) (test bbuq=160) 10.2 fL 9.4-12.3 NUCLEATED RED BLOOD CELLS (BEAKER) (test 0 /100 WBC 0-0 gewp=688) NEUTROPHILS RELATIVE PERCENT (BEAKER) (test 79 % pbnw=536) LYMPHOCYTES RELATIVE PERCENT (BEAKER) (test 11 % nrce=315) MONOCYTES RELATIVE PERCENT (BEAKER) (test 8 % jmfe=311) EOSINOPHILS RELATIVE PERCENT (BEAKER) (test 1 % fyvr=221) BASOPHILS RELATIVE PERCENT (BEAKER) (test 1 % bzhw=620) NEUTROPHILS ABSOLUTE COUNT (BEAKER) (test 4.19 K/ L 1.56-6.13 nzzq=690) LYMPHOCYTES ABSOLUTE COUNT (BEAKER) (test 0.56 K/ L 1.18-3.74 ihmb=361) MONOCYTES ABSOLUTE COUNT (BEAKER) (test hxza=357) 0.43 K/ L 0.24-0.36 EOSINOPHILS ABSOLUTE COUNT (BEAKER) (test 0.03 K/ L 0.04-0.36 osll=481) BASOPHILS ABSOLUTE COUNT (BEAKER) (test camz=947) 0.03 K/ L 0.01-0.08 IMMATURE GRANULOCYTES-RELATIVE PERCENT (BEAKER) 1 % 0-1 (test qoro=5816) ALPHA FETOPROTEIN (AFP), TUMOR [id number] 19:11:00 Test Item Value Reference Range Comments ALPHA-FETOPROTEIN (BEAKER) (test qqtm=8328) 2.8 ng/mL <10.0 BASIC METABOLIC [id number] 13:49:00 Test Item Value Reference Range Comments SODIUM (BEAKER) (test 141 meq/L 136-145 mmun=888) POTASSIUM (BEAKER) (test 4.3 meq/L 3.5-5.1 itjb=788) CHLORIDE (BEAKER) (test 106 meq/L 98-107 blug=189) CO2 (BEAKER) (test 28 meq/L 22-29 mcbx=904) BLOOD UREA NITROGEN 14 mg/dL 7-21 (BEAKER) (test ekbm=105) CREATININE (BEAKER) (test 0.83 mg/dL 0.57-1.25 zgyi=699) GLUCOSE RANDOM (BEAKER) 115 mg/dL 70-105 (test sjcq=028) CALCIUM (BEAKER) (test 8.9 mg/dL 8.4-10.2 pifb=528) EGFR (BEAKER) (test 68 mL/min/1.73 sq m ESTIMATED GFR IS NOT umfs=5914) ACCURATE CREATININE CLEARANCE IN PREDICTING GLOMERULAR FILTRATION RATE. ESTIMATED GFR IS NOT APPLICABLE FOR DIALYSIS PATIENTS. Specimen slightly ictericHEPATIC FUNCTION [id number] 13:49:00 Test Item Value Reference Range Comments TOTAL PROTEIN (BEAKER) (test erem=907) 7.0 gm/dL 6.0-8.3 ALBUMIN (BEAKER) (test fipw=9873) 3.1 g/dL 3.5-5.0 BILIRUBIN TOTAL (BEAKER) (test twae=208) 1.7 mg/dL 0.2-1.2 BILIRUBIN DIRECT (BEAKER) (test pjux=117) 0.8 mg/dL 0.1-0.5 ALKALINE PHOSPHATASE (BEAKER) (test jdbc=338) 152 U/L 40-150 AST (SGOT) (BEAKER) (test ccud=041) 30 U/L 5-34 ALT (SGPT) (BEAKER) (test jgpk=667) 18 U/L 6-55 Specimen slightly ictericCBC W/PLT COUNT & AUTO [id number] 13:40 :00 Test Item Value Reference Range Comments WHITE BLOOD CELL COUNT (BEAKER) (test jgck=348) 4.7 K/ L 3.5-10.5 RED BLOOD CELL COUNT (BEAKER) (test disv=054) 3.67 M/ L 3.93-5.22 HEMOGLOBIN (BEAKER) (test piiv=402) 8.9 GM/DL 11.2-15.7 HEMATOCRIT (BEAKER) (test xhnp=287) 31.4 % 34.1-44.9 MEAN CORPUSCULAR VOLUME (BEAKER) (test fqur=141) 85.6 fL 79.4-94.8 MEAN CORPUSCULAR HEMOGLOBIN (BEAKER) (test 24.3 pg 25.6-32.2 msan=394) MEAN CORPUSCULAR HEMOGLOBIN CONC (BEAKER) (test 28.3 GM/DL 32.2-35.5 wmsp=725) RED CELL DISTRIBUTION WIDTH (BEAKER) (test 22.2 % 11.7-14.4 wylz=954) PLATELET COUNT (BEAKER) (test xrub=246) 69 K/CU MM 150-450 MEAN PLATELET VOLUME (BEAKER) (test ztwq=592) 11.3 fL 9.4-12.3 NUCLEATED RED BLOOD CELLS (BEAKER) (test 0 /100 WBC 0-0 hrzq=192) NEUTROPHILS RELATIVE PERCENT (BEAKER) (test 76 % rweq=560) LYMPHOCYTES RELATIVE PERCENT (BEAKER) (test 13 % rsuf=625) MONOCYTES RELATIVE PERCENT (BEAKER) (test 9 % dtgt=417) EOSINOPHILS RELATIVE PERCENT (BEAKER) (test 1 % vxil=341) BASOPHILS RELATIVE PERCENT (BEAKER) (test 1 % ttmp=505) NEUTROPHILS ABSOLUTE COUNT (BEAKER) (test 3.57 K/ L 1.56-6.13 cxxb=799) LYMPHOCYTES ABSOLUTE COUNT (BEAKER) (test 0.62 K/ L 1.18-3.74 pcrn=270) MONOCYTES ABSOLUTE COUNT (BEAKER) (test mgiu=902) 0.41 K/ L 0.24-0.36 EOSINOPHILS ABSOLUTE COUNT (BEAKER) (test 0.05 K/ L 0.04-0.36 litd=226) BASOPHILS ABSOLUTE COUNT (BEAKER) (test vmya=810) 0.03 K/ L 0.01-0.08 IMMATURE GRANULOCYTES-RELATIVE PERCENT (BEAKER) 0 % 0-1 (test wxrn=4140) PROTHROMBIN TIME/[id number] 13:37:00 Test Item Value Reference Range Comments PROTIME (BEAKER) (test erxw=626) 16.3 seconds 11.9-14.2 INR (BEAKER) (test iyzr=826) 1.4 <=5.9 Effective 03/14/2019: PT Reference Range ChangeNew: 11.9-14.2 Previous: 11.7- 14.7RECOMMENDED COUMADIN/WARFARIN INR THERAPY RANGESSTANDARD DOSE: 2.0-3.0 Includes: PROPHYLAXIS for venous thrombosis, systemic embolization; TREATMENT for venous thrombosis and/or pulmonary embolus.HIGH RISK: Target INR is2.5-3.5 for patients wiht mechanical heart valves.TISSUE [id number] 09:29: 00Surgical Pathology Report Case: [id number] Authorizing Provider: Obed James MD Collected : 08/07/2018 0914 Ordering Location: [facility] Endoscopy Received: 08/07/2018 1134 Services Pathologist: Constantine Linn MD Specimens: A) - Small Bowel, NOS B) -Antrum PART A SMALL INTESTINE, BIOPSY:SMALL INTESTINAL MUCOSA WITH PRESERVED VILLOUS ARCHITECTURE.NO GRANULOMAS, ULCERATION , DYSPLASIA, OR INVASIVE CARCINOMA SEEN.PART B GASTRIC ANTRUM, BIOPSY:MILD CHRONIC INACTIVE GASTRITIS.WARTHIN STARRY STAIN FOR HELICOBACTER IS NEGATIVE. Signing Pathologist Direct Phone Line: [phone] signed by Constantine Linn MD on 08/09/2018 at 9:29 [id number], [id number] screening A. Small bowel. B. Antrum Specimen is received in two containers of formalin both labeled with the patient's information.Specimen A: Labeled "small bowel biopsy" consists of a 0.2 cm fragment of eng tissue submitted in A1.Specimen B: Labeled "antrum" consists of two fragments of eng tissue measuring 0.1 and 0.3 cm, submitted in B1. CG/ew PERFORMED. The following special studies were performedon this case and the interpretation is incorporated in the diagnostic report above:BLOCK B1- WARTHINSTARRYTISSUE [id number] 08:31:00Surgical Pathology Report Case: [id number] Authorizing Provider: Obed James MD Collected: 01/27/2018 1140 Ordering Location: [facility] Endoscopy Received: 01/27/2018 1533 Services Pathologist: Constantine Linn MD Specimen: Biopsy, Gastric, ANTRAL BX/FORCEP PART A GASTRIC ANTRUM BIOPSY:MILD CHRONIC INACTIVE GASTRITIS.WARTHIN STARRY STAIN FOR HELICOBACTER IS NEGATIVE. Signing Pathologist Direct Phone Line: [phone] signed by Constantine Linn MDon 01/30/2018 at 8:31 [id number], [id number] cirrhosis. Gastric antrum biopsy In formalin labeled "biopsy, gastric", description "antral biopsy" are three fragments measuring 0.6 x 0.5 x 0.1 cm in aggregate. Entirely submitted A1. DB/bc The following special studies were performed on this case and the interpretation is incorporated in the diagnostic report above:BLOCK A1- GALLO BETTYMR, ABDOMEN, [id number] 09:41: 00Referring: Dr. 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 Comment: Parenchymal lung disease at the lung bases is nonspecific but may represent pulmonary fibrosis. Other etiologies including superimposed pneumonitis cannot be excluded. Findings can be better assessed with a chest CT. There are no focal or diffuse abnormalities of the osseous structures. The subcutaneous soft tissues as well as the musculature are within normal limits. The adrenal glands, kidneys, pancreas, stomach, and duodenum are within normal limits. There is no abdominal or retroperitoneal lymphadenopathy. There is hepatic cirrhosis. No suspicious enhancing hepatic lesions are seen. There is marked splenomegaly. The visualized portions of the small bowel are within normal limits. There is diverticulosis of the visualized portions of the large bowel. No ascites is identified. There has been a decrease in the partially occlusive main portal and superior mesenteric venous thrombosis. The main portal vein measures up to a maximum of 1.5 cm in diameter. Impression: 1. Hepatic cirrhosis. No suspicious enhancing hepatic lesions are seen. 2. Splenomegaly with findings of portal hypertension. 3. Decrease in the partially occlusive thrombus in the main portal and superior mesenteric veins. Signed: Rica Chery Verified Date/Time: 01/19/2018 09:41:39 Reading Location : [facility] Diagnostic Imaging Reading Room - [place] [address] Electronically signed by: RICA CHERY M.D.on 01/19/2018 09:41 [id number] 08: 28:00 Test Item Value Reference Range Comments POC-CREATININE (BEAKER) 0.7 mg/dL 0.6-1.3 TESTED AT [address] (test hvqk=1216) [facility] [address] POC-EGFR (BEAKER) (test 83 mL/min/1.73M2 znav=5831) MR, ABDOMEN, [id number] 15:45:00Referring: Dr. Eric Morel for Exam:-&gt ;cirrhosis, screen for cancer, hx of portal and splenic vein thrombiiiFINAL REPORT MRI OF THE ABDOMEN CLINICAL HISTORY: Cirrhosis TECHNIQUE: Multiplanar and multisequence MR images of the abdomen are obtained before and after intravenous contrast administration. Contrast is administered to evaluate the solid organs. COMPARISON: MRI of the abdomenfrom 11/24/2016 DISCUSSION: LIVER: Cirrhotic morphology of the liver. No suspicious liver lesion. Recanalization of the periumbilical vein.BILIARY: Gallbladder unremarkable. No biliary ductal dilation.PANCREAS: No pancreatic ductal dilation. No solid pancreatic lesion.SPLEEN: Spleen is enlarged measuring 16.9 cm in length. ADRENALS: No nodule.KIDNEYS: No hydronephrosis or hydroureter. No solid renal lesion. PERITONEUM/RETROPERITONEUM: No significant ascites.LYMPH NODES: No upper abdominal lymphadenopathy. VESSELS: Unchanged partial thrombosis of the SMV and main portal vein. Main portal vein measures1.6 cm at the level of the splenoportal confluence. BONES AND SOFT TISSUES: No destructive osseous lesion. IMPRESSION: Stable examination when compared to 2016. No new liver lesion. Cirrhosis, splenomegaly, and findings of portal hypertension. No significant ascites. 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 Signed: Jonn Saraviaeport Verified Date/Time: 2016 15:45:59 Reading Location: [address] Radiology Reading Room POCT- [id number] 10:20:00 Test Item Value Reference Range Comments POC-CREATININE (BEAKER) 0.8 mg/dL 0.6-1.3 TESTED AT [address] (test cfor=4289) [facility] [address] POC-EGFR (BEAKER) (test 72 mL/min/1.73M2 izaa=6670) TISSUE [id number] 13:53:00Surgical Pathology Report Case: [id number] Authorizing Provider: Obed James MD Collected: 03/21/2017 0946 Ordering Location: [facility] Endoscopy Received: 03/21/2017 1202 Services Pathologist: Re Engel MD Specimen: Biopsy, Gastric, ANTRAL BX/FORCEP STOMACH, ANTRUM, BIOPSY: - ANTRAL MUCOSA WITH CHRONIC INACTIVE GASTRITIS, MILD MUCOSAL CONGESTION, AND INTESTINAL METAPLASIA [id number] ascitesAntrum gastric biopsyThe specimen is received in a formalin-filled container and labeled with the patient's information and labeled "antral gastric biopsy" and consists of a 0.1 cm fragment of eng soft tissue, submitted entirely A1. CG/plPerformed.The following special studies were performedon this case and the interpretation is incorporated in the diagnostic report above:Warthin Starry stain negative for Helicobacter pylori organisms.[id number] 07:58:00 Test Item Value Reference Range Comments POC-POTASSIUM (BEAKER) (test 4.8 meq/L 3.6-5.5 TESTED AT [facility] [address] [facility] oywd=5705) [facility] [address] CBC W/PLT COUNT & AUTO [id number] 12:57:00 Test Item Value Reference Range Comments WHITE BLOOD CELL COUNT (BEAKER) (test upgk=430) 6.4 K/ L 4.0-10.0 RED BLOOD CELL COUNT (BEAKER) (test auat=527) 3.89 M/ L 4.00-5.00 HEMOGLOBIN (BEAKER) (test dixs=481) 13.3 GM/DL 12.0-15.0 HEMATOCRIT (BEAKER) (test ulqm=786) 38.7 % 36.0-45.0 MEAN CORPUSCULAR VOLUME (BEAKER) (test uktm=907) 99.6 fL 82.0-99.0 MEAN CORPUSCULAR HEMOGLOBIN (BEAKER) (test 34.2 pg 27.0-33.0 bjdu=491) MEAN CORPUSCULAR HEMOGLOBIN CONC (BEAKER) (test 34.3 GM/DL 32.0-36.0 qisn=246) RED CELL DISTRIBUTION WIDTH (BEAKER) (test 13.2 % 10.3-14.2 cjxz=501) PLATELET COUNT (BEAKER) (test rpmh=638) 62 K/CU MM 150-430 MEAN PLATELET VOLUME (BEAKER) (test qjge=271) 8.6 fL 6.5-10.5 NUCLEATED RED BLOOD CELLS (BEAKER) (test 0 /100 WBC 0-0 mlti=233) NEUTROPHILS RELATIVE PERCENT (BEAKER) (test 68 % lggx=898) LYMPHOCYTES RELATIVE PERCENT (BEAKER) (test 21 % xoau=372) MONOCYTES RELATIVE PERCENT (BEAKER) (test 7 % cxxn=162) EOSINOPHILS RELATIVE PERCENT (BEAKER) (test 3 % dcmp=628) BASOPHILS RELATIVE PERCENT (BEAKER) (test 1 % qchv=771) NEUTROPHILS ABSOLUTE COUNT (BEAKER) (test 4.39 K/ L 1.80-8.00 mpgn=387) LYMPHOCYTES ABSOLUTE COUNT (BEAKER) (test 1.33 K/ L 1.48-4.50 jvmn=393) MONOCYTES ABSOLUTE COUNT (BEAKER) (test tksz=736) 0.48 K/ L 0.00-1.30 EOSINOPHILS ABSOLUTE COUNT (BEAKER) (test 0.20 K/ L 0.00-0.50 dbpb=859) BASOPHILS ABSOLUTE COUNT (BEAKER) (test frbo=046) 0.04 K/ L 0.00-0.20 0.00ALPHA FETOPROTEIN (AFP), TUMOR [id number] 12:30:00 Test Item Value Reference Range Comments ALPHA-FETOPROTEIN (BEAKER) (test stgj=5274) 3.1 ng/mL <10.0 Effective 09/03/2014: Reference Range ChangeNew: <10.0 Previous: 0.0- 8.0HEPATIC FUNCTION [id number] 12:10:00 Test Item Value Reference Range Comments TOTAL PROTEIN (BEAKER) (test faoj=319) 7.1 gm/dL 6.0-8.3 ALBUMIN (BEAKER) (test okfl=2069) 3.2 g/dL 3.5-5.0 BILIRUBIN TOTAL (BEAKER) (test iaqk=124) 1.1 mg/dL 0.2-1.2 BILIRUBIN DIRECT (BEAKER) (test tnhp=297) 0.4 mg/dL 0.1-0.5 ALKALINE PHOSPHATASE (BEAKER) (test olpb=066) 143 U/L 40-150 AST (SGOT) (BEAKER) (test fthz=671) 28 U/L 5-34 ALT (SGPT) (BEAKER) (test xemf=622) 14 U/L 6-55 BASIC METABOLIC [id number] 12:10:00 Test Item Value Reference Range Comments SODIUM (BEAKER) (test 139 meq/L 136-145 berw=519) POTASSIUM (BEAKER) (test 5.0 meq/L 3.5-5.1 vxzd=264) CHLORIDE (BEAKER) (test 106 meq/L 98-107 fuiu=650) CO2 (BEAKER) (test 27 meq/L 22-29 hdyf=781) BLOOD UREA NITROGEN 11 mg/dL 7-21 (BEAKER) (test iqda=689) CREATININE (BEAKER) (test 0.84 mg/dL 0.57-1.25 fbrl=986) GLUCOSE RANDOM (BEAKER) 100 mg/dL 70-105 (test wpcd=097) CALCIUM (BEAKER) (test 9.0 mg/dL 8.4-10.2 gnmd=615) EGFR (BEAKER) (test 68 mL/min/1.73 sq m ESTIMATED GFR IS NOT zfox=8174) ACCURATE CREATININE CLEARANCE IN PREDICTING GLOMERULAR FILTRATION RATE. ESTIMATED GFR IS NOT APPLICABLE FOR DIALYSIS PATIENTS. [id number] 12:01:00 Test Item Value Reference Range Comments FIBRINOGEN LEVEL (BEAKER) (test fowb=674) 269 mg/dl 225-434 PROTHROMBIN [id number] 12:00:00 Test Item Value Reference Range Comments PROTIME (BEAKER) (test bzsd=480) 14.5 seconds 11.7-14.7 INR (BEAKER) (test yaqy=213) 1.1 <=5.9 RECOMMENDED COUMADIN/WARFARIN INR THERAPY RANGESSTANDARD DOSE: 2.0 - 3.0 Includes: PROPHYLAXIS forvenous thrombosis, systemic embolization; TREATMENT for venous thrombosis and/or pulmonary embolus.HIGH RISK: Target INR is 2.5-3.5 for patients with mechanical heart valves.
[2019-09-23 11:46] LABS: Absolute Lymphocytes (CBC) 0.6 K/uL (0.7-4.9); Basophils % 0.9 % (0-1.3); Hematocrit 27.9 % (36.0-45.0); MPV 8.5 fL (7.6-11.3); RBC Red Blood Cell Count 3.29 M/uL (3.86-4.86)
[2019-09-23 11:53] LABS: Protime INR 1.49
[2019-09-23 12:03] LABS: Albumin 2.3 g/dL (3.4-5.0); Bilirubin Direct 0.7 mg/dL (0-0.2); Bilirubin Total 2.3 mg/dL (0.2-1.0); Magnesium 1.8 mg/dL (1.8-2.4); Potassium 3.7 mmol/L (3.5-5.1); Protein, Total 6.5 g/dL (6.4-8.2); Troponin (Emerg Dept Use Only) 0.11 ng/mL (0.0-0.045)
[2019-09-23 12:06] LABS: Blood Morphology Comment NOT SEEN (NOT SEEN); Platelet Estimate DECR; Urine White Blood Cell Casts OK
--- NOTE | 2019-09-23 13:07 | RAD REPORT ---
EXAM DESCRIPTION: CT - Abdomen Pelvis W Contrast - 09/23/2019 12:48 pm CLINICAL HISTORY: abdominal distension, shortness of breath COMPARISON: Abdomen CT September 2016 TECHNIQUE: Biphasic, helical CT imaging of the abdomen and pelvis was performed following 100 ml non -ionic IV contrast. No oral contrast. All CT scans are performed using dose optimization technique as appropriate and may include automated exposure control or mA/KV adjustment according to patient size. FINDINGS: Lung bases and heart findings are detailed in separate CT chest report Liver is grossly abnormal. Liver is small in volume with pronounced nodularity to the capsule. No foc al liver parenchymal lesions seen. Dilated portal vein is present. There is dilated portal vasculatur e extending to recannulized, large umbilical veins. Portal vein thrombus is present near the junction with the superior mesenteric vein. Patient has had prior portal vein thrombus. There is thrombus in the splenic vein at the splenic hilum. Superior mesenteric vein thrombus is not seen. Spleen is abnormal. Multiple wedge-shaped areas of diminished attenuation are present likely areas of infarcted parenchyma. No pancreatic or peripancreatic acute process. Gallbladder is normal size. No biliary tree dilatation . Gallstones can be occult on CT imaging. Symmetric renal function is seen with no hydronephrosis or suspicious renal mass. Slight heterogeneit y of the left renal parenchyma is present but not definitive for pyelonephritis. No pyelonephritis or acute parenchymal process. Partially filled urinary bladder shows no suspicious findings. No adrenal abnormality seen. Uterus and ovaries show no suspicious findings. No gastric dilatation or gastric wall thickening. Large and small bowel loops are not dilated. An acu te GI process is not seen. Patient does have prominent sigmoid diverticulosis. No free air or pneuma tosis. Patient has a large volume of ascites. No mass or bulky lymphadenopathy. No omental thickening. Jazmyne ent has prominent upper abdominal varices. Disc and bony degenerative changes are present. No compression fracture or pathologic bone process. Prominent fluid retention in the subcutaneous fatty tissues. IMPRESSION: No bowel obstruction, free air or surgically emergent finding. Advanced cirrhosis changes are present without a focal liver parenchymal lesion. Dilated portal veins are present with enlarged, re-cannulized umbilical veins and multiple upper abdominal varices. Multiple areas of diminished attenuation in the spleen believed to be areas of infarcted parenchyma. These are new from 2016. Portal vein thrombus at the junction with the superior mesenteric vein. Portal vein thrombus was pres ent in 2016 in a slightly different location. There is thrombus in the splenic vein at the hilum. Large volume of ascites present. Advanced diverticulosis without diverticulitis. No acute GI or finding. Slight heterogeneity of th e left renal parenchymal enhancement not sufficient for pyelonephritis diagnosis at this time. Moderately prominent fluid retention in the subcutaneous fatty tissues.
--- NOTE | 2019-09-23 13:11 | RAD REPORT ---
EXAM DESCRIPTION: CT - Chest For Pe Angio - 09/23/2019 12:50 pm CLINICAL HISTORY: shortness of breath COMPARISON: Thorax Wo Con dated 04/28/2018; Chest Single View dated 09/23/2019 TECHNIQUE: Dynamically enhanced 3 mm thick images of the chest were obtained during administration o f approximately 150mL Isovue 370 IV contrast. Coronal and oblique MIP reconstruction images were gene rated and reviewed. Exam utilizes a protocol to evaluate the pulmonary arterial tree. All CT scans are performed using dose optimization technique as appropriate and may include automated exposure control or mA/KV adjustment according to patient size. FINDINGS: Exam has significant motion degradation limiting peripheral branch assessment in the mid a nd lower chest. No central pulmonary emboli present. Likelihood of peripheral branch embolic disease is felt to be low. The aorta as imaged shows no acute or suspicious finding. No pericardial thickening or effusion. Hear t size is prominent. No focal consolidation or mass seen. Patient has thickened interstitial markings throughout the chest and a few scattered areas of airspace disease. Failure/ volume overload are favored. No pleural effu aubrie or pleural thickening. No mediastinal or hilar suspicious masses. No chest wall masses or abnormal axillary lymphadenopathy. IMPRESSION: No central pulmonary emboli are present. Far peripheral branch assessment is limited by motion but embolic disease is not suspected. Pulmonary edema pattern is seen from failure or volume overload. No focal consolidation or mass.
--- NOTE | 2019-09-23 13:12 | RAD REPORT ---
EXAM DESCRIPTION: RAD - Chest Single View - 09/23/2019 11:40 am CLINICAL HISTORY: Shortness of breath COMPARISON: July 24 TECHNIQUE: AP portable chest image was obtained 1131 hours . FINDINGS: Lung volumes are low. Right hemidiaphragm is elevated. Interstitial markings are prominent throughout the chest with patchy alveolar opacities in the mid and lower left lung field. Heart size is normal range. No pneumothorax or large pleural effusion. Left base assessment is limited. No acut e bone abnormality. Prominent degenerative change present at the right shoulder joint. No acute aorti c findings suspected. IMPRESSION: CHF/volume overload pattern. Noncardiogenic pulmonary edema possible as well.
--- NOTE | 2019-09-23 13:36 | ER ---
Nurse's Notes [facility] Name: Nelda Ramírez Age: 69 yrs Sex: Female : 1950 Arrival Date: 09/23/2019 Time: 10:50 Bed 20 Private MD: Cristi Neal V Diagnosis: Unspecified cirrhosis of liver;Dyspnea;Edema, unspecified Presentation: 09/23 10:55 Presenting complaint: Patient states: Was seen at [facility] ER in [facility] for swelling, told sg nothing was out of oridinary, reports being told fatty liver but no issues with ascites reported to her or family. Pt reports pain and swelling that started on the right side of abdomen, reports having swelling this morning that has increased, reports swelling in legs and arms as well, no fever reported. Transition of care: patient was not received from another setting of care. Onset of symptoms was September 23, 2019. Risk Assessment: Do you want to hurt yourself or someone else? Patient reports no desire to harm self or others. Initial Sepsis Screen: Does the patient meet any 2 criteria? RR > 20 per min. No. Patient's initial sepsis screen is negative. Does the patient have a suspected source of infection? No. Patient's initial sepsis screen is negative. Care prior to arrival: None. 10:55 Method Of Arrival: Ambulatory sg 10:55 Acuity: SERGIO 3 sg Historical: - Allergies: 10:57 Aspirin; sg 10:57 PENICILLINS; sg - Home Meds: 11:35 furosemide 20 mg Oral tab 1 tab once daily [Active]; Xifaxan 550 mg Oral tab 1 tab 2 em times per day [Active]; spironolactone 100 mg Oral tab 1 tab once daily [Active]; lactulose 10 gram/15 mL (15 mL) Oral soln 30 mL once daily [Active]; doxycycline hyclate 100 mg Oral cap [Active]; - PMHx: 10:57 CHF; Cirrhosis; sg - PSHx: 10:57 None; sg - Immunization history:: Adult Immunizations up to date. - Social history:: Smoking status: Patient/guardian denies using tobacco. - Ebola Screening: : Patient negative for fever greater than or equal to 101.5 degrees Fahrenheit, and additional compatible Ebola Virus Disease symptoms Patient denies exposure to infectious person Patient denies travel to an Ebola-affected area in the 21 days before illness onset No symptoms or risks identified at this time. Screenin:30 Abuse screen: Denies threats or abuse. Nutritional screening: No deficits noted. em Tuberculosis screening: No symptoms or risk factors identified. Fall Risk None identified. Assessment: 11:37 General: Appears in no apparent distress. comfortable, Behavior is calm, cooperative, em Denies fever. Pain: Complains of pain in right lower quadrant Pain currently is 3 out of 10 on a pain scale. Neuro: Level of Consciousness is awake, alert, obeys commands, Oriented to person, place, time, situation, Appropriate for age. Cardiovascular: Capillary refill < 3 seconds Patient's skin is warm and dry. Respiratory: Airway is patent Respiratory effort is even, unlabored, Respiratory pattern is regular, symmetrical. GI: Abdomen is flat, Bowel sounds present X 4 quads. Abd is soft X 4 quads Abdomen is tender to palpation X 4 quads. Reports abdominal swelling. Derm: Skin is intact, is healthy with good turgor, Skin is pink, warm \T\ dry. Musculoskeletal: Capillary refill < 3 seconds, Range of motion: intact in all extremities. 12:43 Reassessment: Patient appears in no apparent distress at this time. wheeled to CT via em stretcher. 13:50 Reassessment: Patient appears in no apparent distress at this time. Patient and/or em family updated on plan of care and expected duration. Pain level reassessed. Patient is alert, oriented x 3, equal unlabored respirations, skin warm/dry/pink. Vital Signs: 10:57 BP 130 / 74; Pulse 90; Resp 21; Temp 97.3; Pulse Ox 92% on R/A; sg 12:00 BP 116 / 65; Pulse 94; Resp 20; Pulse Ox 95% on R/A; Pain 3/10; em 14:42 BP 101 / 68; Pulse 102; Resp 20; Pulse Ox 99% on R/A; Pain 3/10; em 14:51 BP 121 / 64; Pulse 99; Resp 16; Temp 98.2(O); Pulse Ox 100% on R/A; Pain 4/10; em ED Course: 10:50 Patient arrived in ED. mr 10:50 Cristi Neal MD is Private Physician. mr 10:55 Arm band placed on. sg 10:57 Triage completed. 11:02 Darvin Obrien PA is PHCP. [facility] 11:02 Rangel Rajput MD is Attending Physician. [facility] 11:10 Naresh Kovacs LVN is Primary Nurse. em 11:25 Radiology exam delayed due to lab results not completed at this time. (BUN/Creatinine). mw3 11:30 Patient has correct armband on for positive identification. Bed in low position. Call em light in reach. Side rails up X2. Adult w/ patient. Pulse ox on. NIBP on. 11:31 Initial lab(s) drawn, by me, sent to lab. Inserted saline lock: 22 gauge in right jd2 antecubital area, using aseptic technique. Blood collected. 11:42 XRAY Chest (1 view) In Process Unspecified. EDMS 12:49 CT Abd/Pelvis - IV Contrast Only In Process Unspecified. EDMS 12:49 CT Chest For PE Angio In Process Unspecified. EDMS 12:57 CT completed. Patient tolerated procedure well. Patient taken to ultrasound. via mw3 stretcher. 13:29 US Extremity Venous W Compression Conor In Process Unspecified. EDMS 13:34 Cristi Neal MD is Hospitalizing Provider. [facility] 15:01 No provider procedures requiring assistance completed. Patient admitted, IV remains in em place. Administered Medications: No medications were administered Outcome: 13:35 Decision to Hospitalize by Provider. [facility] 15:01 Admitted to Tele accompanied by tech, family with patient, via wheelchair, room 430, em with chart, Report called to GLADIS Darling 15:01 Condition: good 15:14 Patient left the ED. em Signatures: Dispatcher [employer] EDGordon Moise, RN RN Darvin Obrien PA PA jmm Rivera, Mary mr Naresh Kovacs LVN LVN em Karena Barnes j Deepthi Chase mw3
--- NOTE | 2019-09-23 13:36 | EDPHYS ---
Physician Documentation [facility] Name: Nelda Ramírez Age: 69 yrs Sex: Female : 1950 Arrival Date: 09/23/2019 Time: 10:50 Bed 20 Private MD: Cristi Neal V ED Physician Rangel Rajput HPI: 09/23 11:23 This 69 yrs old Female presents to ER via Ambulatory with complaints of jmm Abdominal Swelling. 11:23 The patient presents with abdominal distention. Onset: The symptoms/episode jmm began/occurred gradually, 1 week(s) ago. The symptoms do not radiate. Associated signs and symptoms: Pertinent positives: shortness of breath. Modifying factors: The symptoms are alleviated by nothing, the symptoms are aggravated by. This is a 69 year old female with a history of CHF, cirrhosis, that presents t the ED with complaints of abdominal swelling, shortness of breath and leg swelling. Patient was evaluated in the ED in the [facility] last week and diagnosed with pneumonia. Patient prescribed oral abx. Daughter states the patient's abdomen has increased in size with increased leg swelling. Patient localizes abdominal pain to the right upper quadrant. . Historical: - Allergies: 10:57 Aspirin; sg 10:57 PENICILLINS; sg - Home Meds: 11:35 furosemide 20 mg Oral tab 1 tab once daily [Active]; Xifaxan 550 mg Oral tab 1 tab 2 em times per day [Active]; spironolactone 100 mg Oral tab 1 tab once daily [Active]; lactulose 10 gram/15 mL (15 mL) Oral soln 30 mL once daily [Active]; doxycycline hyclate 100 mg Oral cap [Active]; - PMHx: 10:57 CHF; Cirrhosis; sg - PSHx: 10:57 None; sg - Immunization history:: Adult Immunizations up to date. - Social history:: Smoking status: Patient/guardian denies using tobacco. - Ebola Screening: : Patient negative for fever greater than or equal to 101.5 degrees Fahrenheit, and additional compatible Ebola Virus Disease symptoms Patient denies exposure to infectious person Patient denies travel to an Ebola-affected area in the 21 days before illness onset No symptoms or risks identified at this time. ROS: 11:23 Constitutional: Negative for fever, chills, and weight loss, Cardiovascular: Negative [facility] for chest pain, palpitations, and edema. 11:23 Respiratory: Positive for shortness of breath. 11:23 Abdomen/GI: Positive for abdominal pain, abdominal distension. 11:23 MS/extremity: Positive for swelling. 11:23 All other systems are negative. Exam: 11:23 Constitutional: This is a well developed, well nourished patient who is awake, alert, jmm and in no acute distress. Head/Face: atraumatic. Eyes: EOMI, no conjunctival erythema appreciated ENT: Moist Mucus Membranes Neck: Trachea midline, Supple Chest/axilla: Normal chest wall appearance and motion. Cardiovascular: Regular rate and rhythm. No edema appreciated 11:23 Back: Normal ROM Skin: General appearance color normal 11:23 Respiratory: the patient does not display signs of respiratory distress, Respirations: normal, Breath sounds: are clear throughout. 11:23 Abdomen/GI: Inspection: distension, that is moderate, Bowel sounds: normal, Palpation: abdomen is soft and non-tender, in all quadrants. 11:23 Musculoskeletal/extremity: ROM: intact in all extremities, bilateral pitting edema appreciated, full dorsalis pedis pulse intact bilaterally. . 11:23 Skin: Appearance: Color: normal in color. 11:23 Neuro: Orientation: is normal, Mentation: is normal, Memory: is normal. 11:23 Psych: Behavior/mood is pleasant, cooperative. Vital Signs: 10:57 BP 130 / 74; Pulse 90; Resp 21; Temp 97.3; Pulse Ox 92% on R/A; sg 12:00 BP 116 / 65; Pulse 94; Resp 20; Pulse Ox 95% on R/A; Pain 3/10; em 14:42 BP 101 / 68; Pulse 102; Resp 20; Pulse Ox 99% on R/A; Pain 3/10; em 14:51 BP 121 / 64; Pulse 99; Resp 16; Temp 98.2(O); Pulse Ox 100% on R/A; Pain 4/10; em MDM: 11:10 Patient medically screened. [facility] 13:33 Data reviewed: vital signs, nurses notes. Counseling: I had a detailed discussion with [facility] the patient and/or guardian regarding: the historical points, exam findings, and any diagnostic results supporting the discharge/admit diagnosis, lab results, radiology results, the need for further work-up and treatment in the hospital. ED course: I discussed the patient with Dr. Neal whom accepted admission. . 09/23 11:18 Order name: Basic Metabolic Panel; Complete Time: 12:04 [facility] 09/23 11:18 Order name: CBC with Diff; Complete Time: 12:10 [facility] 09/23 11:18 Order name: LFT's; Complete Time: 12:04 [facility] 09/23 11:18 Order name: Magnesium; Complete Time: 12:04 [facility] 09/23 11:18 Order name: NT PRO-BNP; Complete Time: 12:04 [facility] 09/23 11:18 Order name: PT-INR; Complete Time: 11:58 [facility] 09/23 11:18 Order name: Troponin (emerg Dept Use Only); Complete Time: 12:04 [facility] 09/23 11:18 Order name: XRAY Chest (1 view); Complete Time: 13:18 [facility] 09/23 11:18 Order name: EKG; Complete Time: 11:19 [facility] 09/23 11:18 Order name: Lipase; Complete Time: 12:04 [facility] 09/23 11:20 Order name: CT Abd/Pelvis - IV Contrast Only; Complete Time: 13:08 [facility] 09/23 11:20 Order name: US Extremity Venous W Compression Conor; Complete Time: 14:08 [facility] 09/23 12:05 Order name: CT Chest For PE Angio; Complete Time: 13:14 [facility] 09/23 12:06 Order name: CBC Smear Scan; Complete Time: 12:10 [facility] 09/23 11:18 Order name: Cardiac monitoring; Complete Time: 11:48 [facility] 09/23 11:18 Order name: EKG - Nurse/Tech; Complete Time: 11:48 [facility] 09/23 11:18 Order name: IV Saline Lock; Complete Time: 11:31 [facility] 09/23 11:18 Order name: Labs collected and sent; Complete Time: 11:31 [facility] 09/23 11:18 Order name: O2 Per Protocol; Complete Time: 11:31 [facility] 09/23 11:18 Order name: O2 Sat Monitoring; Complete Time: 11:31 jm Administered Medications: No medications were administered Disposition: 09/24 08:30 Co-signature as Attending Physician, Rangel Rajput MD I agree with the assessment and kdr plan of care. Disposition: 09/23/19 13:35 Hospitalization ordered by Cristi Neal for Observation. Preliminary diagnosis are Unspecified cirrhosis of liver, Dyspnea, Edema, unspecified. - Bed requested for Telemetry/MedSurg (observation). - Status is Observation. em - Condition is Stable. - Problem is an acute exacerbation. - Symptoms are unchanged. UTI on Admission? No Signatures: Dispatcher [employer] Sasha Mckeon RN RN dw Gay, Steven, RN RN sg Rangel Rajput MD MD kdr Mickail, Joel, PA PA jmm Munoz, Edgar, OUTBOUND SALES PROFESSIONAL OUTBOUND SALES PROFESSIONAL em Taya Moreland Corrections: (The following items were deleted from the chart) 09/23 13:54 13:35 Hospitalization Ordered by Cristi Neal MD for Observation. Preliminary diagnosis eb is Unspecified cirrhosis of liver; Dyspnea; Edema, unspecified. Bed requested for Telemetry/MedSurg (observation). Status is Observation. Condition is Stable. Problem is an acute exacerbation. Symptoms are unchanged. UTI on Admission? No. cr 14:33 13:54 09/23/2019 13:35 Hospitalization Ordered by Cristi Neal MD for Observation. dw Preliminary diagnosis is Unspecified cirrhosis of liver; Dyspnea; Edema, unspecified. Bed requested for Telemetry/MedSurg (observation). Status is Observation. Condition is Stable. Problem is an acute exacerbation. Symptoms are unchanged. UTI on Admission? No. eb 15:14 14:33 09/23/2019 13:35 Hospitalization Ordered by Cristi Neal MD for Observation. em Preliminary diagnosis is Unspecified cirrhosis of liver; Dyspnea; Edema, unspecified. Bed requested for Telemetry/MedSurg (observation). Status is Observation. Condition is Stable. Problem is an acute exacerbation. Symptoms are unchanged. UTI on Admission? No. dw
--- NOTE | 2019-09-23 13:49 | RAD REPORT ---
EXAM DESCRIPTION: US - Extrem Venous W Compress Conor - 09/23/2019 1:29 pm CLINICAL HISTORY: Leg pain and swelling COMPARISON: None. TECHNIQUE: Real-time sonographic evaluation of the bilateral lower extremity common femoral, superfi cial femoral, popliteal and posterior tibial veins was performed. FINDINGS: Normal compressibility, flow augmentation, phasic flow and spontaneous flow are identified in the left and right lower extremity common femoral, superficial femoral, popliteal and posterior t ibial veins. No intraluminal filling defects seen. IMPRESSION: No DVT in either lower extremity.
[2019-09-23] MEDS ORDERED: ACETAMINOPHEN 500 MG TAB PO PRN (14:11)
[2019-09-23] MEDS ORDERED: ONDANSETRON 4 MG/2 ML VIAL IV PRN (14:11)
[2019-09-23] MEDS ORDERED: ALBUTEROL 2.5 MG/3 ML NEB SOL NEB PRN (14:11)
[2019-09-23] MEDS ORDERED: IPRATROPIUM BROM 0.5MG/2.5ML NEB PRN (14:11)
[2019-09-23 15:37] VITALS: BMI 36.3
[2019-09-23] MEDS: FUROSEMIDE 20 MG/ 2ML VIAL IV SCH (16:23)
[2019-09-23 16:39] LABS: Urine Appearance CLEAR; Urine Bilirubin NEGATIVE (NEG); Urine Blood 1+ (NEG); Urine Color YELLOW; Urine Glucose NEGATIVE (NEG); Urine Protein NEGATIVE (NEG); Urine Specific Gravity >=1.030 (1.005-1.030); Urine Urobilinogen 0.2 mg/dL (0.2-1.0)
[2019-09-23 17:00] LABS: Urine Bacteria <20 /HPF (<20); Urine RBC NONE SEEN /HPF (NONE SEEN)
[2019-09-23] MEDS ORDERED: FUROSEMIDE 20 MG/ 2ML VIAL IV SCH (17:00)
[2019-09-23 17:01] LABS: Urine Culture Reflex Order REFLEXED; Urine Yeast PRESENT (NONE SEEN)
[2019-09-23 18:12] LABS: MPV 7.9 fL (7.6-11.3)
--- NOTE | 2019-09-23 18:26 | P.HP ---
Certification for Inpatient Patient admitted to: Inpatient With expected LOS: >2 Midnights Practitioner: I am a practitioner with admitting privileges, knowledge of patient current condition, hospital course, and medical plan of care. Services: Services provided to patient in accordance with Admission requirements found in Title 42 Section 412.3 of the Code of Federal Regulations Patient History Date of Service: 09/23/19 Reason for admission: DYSPNEA AND DISTENDED ABDOMEN History of Present Illness: MS. 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 SHE IS UNCOMFORTABLE FROM ASCITES AND DYSPNEA TO A CERTAIN DEGREE. SHE HAS NO CHEST PAIN. Allergies Penicillins Allergy (Verified 09/22/15 17:03) Hives Home Medications: Spironolactone [Aldactone*] 25 mg PO DAILY #30 tab 09/23/15 Doxycycline Hyclate 1 tab PO DAILY 09/23/19 Furosemide [Lasix] 20 mg PO DAILY 09/23/19 Lactulose 30 ml PO DAILY 09/23/19 Rifaximin [Xifaxan] 1 tab PO BID 09/23/19 - Past Medical/Surgical History Has patient received pneumonia vaccine in the past: Yes Diabetic: No -: Pulmonary Edema -: Cirrhosis - Social History Smoking Status: Never smoker Alcohol use: No CD- Drugs: No Caffeine use: Yes Place of Residence: Home Review of Systems 10-point ROS is otherwise unremarkable General: Weakness, Malaise Respiratory: Shortness of Breath, SOB with Excertion, As per HPI Gastrointestinal: Distention, As per HPI Physical Examination - Vital Signs Temperature: 98.2 F Blood Pressure: 132/61 Pulse: 98 Respirations: 16 - Physical Exam General: Alert, Mild distress, Moderate distress, Obese HEENT: Atraumatic, PERRLA, Mucous membr. moist/pink, EOMI, Sclerae nonicteric Neck: JVD distended Respiratory: Clear to auscultation bilaterally, Normal air movement Cardiovascular: Regular rate/rhythm, Normal S1 S2 Gastrointestinal: No tenderness, Ascites Musculoskeletal: No tenderness Integumentary: No rashes Neurological: Normal gait, Normal speech, Normal strength at 5/5 x4 extr, Normal tone, Normal affect Lymphatics: No axilla or inguinal lymphadenopathy - Studies Laboratory Data (last 24 hrs) 09/23/19 11:28: PT 17.3 H, INR 1.49 09/23/19 11:28: WBC 5.3, Hgb 9.1 L, Hct 27.9 L, Plt Count 59 L 09/23/19 11:28: Sodium 139, Potassium 3.7, BUN 12, Creatinine 0.92, Glucose 101 , Magnesium 1.8, Total Bilirubin 2.3 H, AST 36, ALT 23, Alkaline Phosphatase 139 H, Lipase 163 Assessment and Plan - Problems (Diagnosis) (1) Ascites Current Visit: Yes Status: Chronic Plan: WILL ORDER ASCITES TAP IF SHE IS UNCOMFORTABLE VAIBHAV DAY OR TWO. HER PLATELTES ARE LOW. SHE IS HIGH RISK FOR TAP. HER ASCITES IS WORSE SHE NOW HAS DIFF LOCATION OF PORTAL VEIN THROMBUS. Qualifiers: Ascites type: other type Qualified Code(s): R18.8 - Other ascites (2) Portal vein thrombosis Current Visit: Yes Status: Chronic Plan: Cirrhotic patients have an endogenous risk for bleeding and should not receive anticoagulant therapy for PVT. There is no evidence that anticoagulants are of any benefit because, in these patients, the condition is most likely long- standing. I look at PVT in cirrhotics as an incidental finding, which could make portal hypertension worse but has no simple therapeutic options. The only therapy would be to remove the clot either during a transjugular intrahepatic portal system shunt or a surgical procedure. Most clinicians will not recommend this unless they cannot manage the variceal bleeding endoscopically and have an available interventional radiologist who is confident that they can enter the portal vein and remove the thrombus. One other caveat in cirrhotic patients is that if PVT is detected, hepatocellular carcinoma (HCC) must be ruled out as the cause. HCC can grow into the portal vein and cause PVT. Sophisticated sonography is required in at- risk patients in order to visualize the vessels and see possible neovascularization in the thrombus in the portal vein, which indicates a malignancy, as opposed to a bland thrombus. She is at high risk of bleeding with anticoagulation. She already has large varices. She is checked by hepatology team for liver cancer and she does not seem to have it so far. I will check tumor markers. (3) CHF (congestive heart failure) Onset Date: 09/23/15 Current Visit: No Status: Acute Plan: She may not have CHF per say but will benefit by lasix as long her BP will tolerate. Qualifiers: Heart failure type: diastolic - Advance Directives Does patient have a Living Will: No Does patient have a Durable POA for Healthcare: No - Code Status/Comfort Care Code Status: Full Code
[2019-09-23 18:27] LABS: Platelet Estimate ND
[2019-09-24 05:39] LABS: Absolute Lymphocytes (CBC) 0.6 K/uL (0.7-4.9); Hematocrit 22.5 % (36.0-45.0); Lymphocytes % 18.3 % (15.3-44.8); MPV 8.6 fL (7.6-11.3); RBC Red Blood Cell Count 2.66 M/uL (3.86-4.86)
[2019-09-24 05:51] LABS: Potassium 3.7 mmol/L (3.5-5.1)
[2019-09-24] MEDS ORDERED: NA CHLORIDE 0.9% 250 ML ONE (07:23)
--- NOTE | 2019-09-24 07:40 | EKG ---
Test Date: 2019-09-23 Test Time: 11:38:33 Senior Application Security Consultant: GUILHERME MEASUREMENT RESULTS: Intervals: Rate: 103 KS: 132 QRSD: 84 QT: 384 QTc: 503 [place]: P: 0 KS: 132 QRS: -11 T: 52 INTERPRETIVE STATEMENTS: Poor data quality, interpretation may be adversely affected Sinus tachycardia Inferior infarct, age undetermined Possible Anterior infarct, age undetermined Abnormal ECG Compared to ECG 09/22/2015 10:44:00 Myocardial infarct finding now present Sinus rhythm no longer present Atrial premature complex(es) no longer present Electronically Signed On 09-24-19 07:39:25 INTERVENTIONAL TECH by Lex Cha
[2019-09-24] MEDS: SPIRONOLACTONE 100 MG TAB PO SCH (08:39)
[2019-09-24] MEDS: LACTULOSE 20 GM/30 ML UCUP PO SCH ×2 (08:40→08:47)
[2019-09-24] MEDS: FUROSEMIDE 20 MG/ 2ML VIAL IV SCH ×2 (08:40→17:55)
--- NOTE | 2019-09-24 08:54 | EKG ---
Test Date: 2019-09-23 Test Time: 11:39:21 Teacher Hearing Impaired: GUILHERME MEASUREMENT RESULTS: Intervals: Rate: 99 GA: 148 QRSD: 90 QT: 366 QTc: 469 [place]: P: 117 GA: 148 QRS: -13 T: 59 INTERPRETIVE STATEMENTS: Normal sinus rhythm Inferior infarct, age undetermined Cannot rule out Anterior infarct, age undetermined Abnormal ECG Compared to ECG 09/23/2019 11:38:33 Sinus tachycardia no longer present Myocardial infarct finding still present Electronically Signed On 09-24-19 08:54:09 CABLE TOOL DRILLER by Lex Cha
[2019-09-24] MEDS ORDERED: NA CHLORIDE 0.9% 100 ML ONE (14:51)
--- NOTE | 2019-09-24 15:16 | ECHO ---
HEIGHT: 5 ft 6 in WEIGHT: 225 lb 0 oz DATE OF STUDY: 09/24/[address]: Crsiti Neal MD 2-DIMENSIONAL: YES M.MODE: YES DOPPLER: YES COLOR FLOW: YES TDS: YES PORTABLE: NO DEFINITY: NO BUBBLE STUDY: NO DIAGNOSIS: ELEVATED TROPONIN CARDIAC HISTORY: CATHERIZATION: NO SURGERY: NO PROSTHETIC VALVE: NO PACEMAKER: NO MEASUREMENTS (cm) DIASTOLIC (NORMALS) SYSTOLIC (NORMALS) IVSd 1.0 (0.6-1.2) LA Diam 3.4 (1.9-4.0) LVEF 65% LVIDd 5.0 (3.5-5.7) LVIDs 3.2 (2.0-3.5) %FS 36% LVPWd 1.1 (0.6-1.2) Ao Diam 2.9 (2.0-3.7) 2 DIMENSIONAL ASSESSMENT: RIGHT ATRIUM: NORMAL LEFT ATRIUM: NORMAL RIGHT VENTRICLE: NORMAL LEFT VENTRICLE: NORMAL TRICUSPID VALVE: NORMAL MITRAL VALVE: NORMAL PULMONIC VALVE: NORMAL AORTIC VALVE: MILD SCLEROSIS PERICARDIAL EFFUSION: NONE AORTIC ROOT: NORMAL LEFT VENTRICULAR WALL MOTION: NORMAL DOPPLER/COLOR FLOW: MILD TRICUSPID REGURGITATION. NORMAL RIGHT VENTRICULAR SYSTOLIC PRESSURE. NO AORTIC STENOSIS OR AORTIC REGURGITATION. COMMENTS: NORMAL LEFT VENTRICULAR EJECTION FRACTION. AORTIC SCLEROSIS WITH NO AORTIC STENOSIS OR AORTIC REGURGITATION. MILD TRICUSPID REGURGITATION. TECHNOLOGIST: Néstor HINOJOSA
[2019-09-24 21:04] LABS: Hematocrit 29.9 % (36.0-45.0)
--- NOTE | 2019-09-24 23:12 | PN ---
Subjective: Ms. Ramírez is doing good. She is sitting in a chair. Denies any chest pain, nausea, vomiting. Denies any bleeding or melenic stools. Physical Examination: Vital Signs: Blood pressure 121/57, temperature 97.5. HEENT: No JVD. No carotid bruits. Abdomen: She is obese. She has moderate ascites. Assessment And Plannin.Generalized anasarca from cirrhosis and ascites from fatty liver. Continue gentle IV diuresis. B lood pressure is stable currently. She is tolerating diuretics okay. 2.Anemia, which is actually pancytopenia. Hemoglobin down to 7.3. This is a new occurrence. I gav e her 2 units of packed RBCs. I consulted Dr. Victoria. The patient just told me that within last 1 m onth she had EGD and colonoscopy done in [place] by doctors in [place], which is her primary liver fa cility in [facility]. Prognosis is guarded. NIRAVD/MODL Voice ID: [id number] Report ID: [id number]
[2019-09-25 05:48] LABS: Absolute Lymphocytes (CBC) 0.7 K/uL (0.7-4.9); Basophils % 0.7 % (0-1.3); Hematocrit 27.5 % (36.0-45.0); Lymphocytes % 18.4 % (15.3-44.8); MPV 8.3 fL (7.6-11.3); RBC Red Blood Cell Count 3.23 M/uL (3.86-4.86)
[2019-09-25] MEDS: LACTULOSE 20 GM/30 ML UCUP PO SCH (09:33)
[2019-09-25] MEDS: SPIRONOLACTONE 100 MG TAB PO SCH (09:34)
[2019-09-25] MEDS: FUROSEMIDE 20 MG/ 2ML VIAL IV SCH (09:34)
[2019-09-25 11:21] VITALS: O2SAT 97
[2019-09-25 12:26] VITALS: BP 140/54; TEMP 98
[2019-09-25] MEDS ORDERED: ALPRAZOLAM 0.25 MG TABLET PO ONE (13:05)
--- NOTE | 2019-09-26 05:01 | DS ---
Date of Discharge: 09/25/2019 Final Diagnoses: Ascites; shortness of breath from third spacing; cirrhosis of liver; portal hyperte nsion from portal thrombosis; diastolic congestive heart failure because of liver failure; anemia, se michelle, without any acute bleeding which is obvious. Hospital Course: Patient is a 69-year-old lady with past medical history of cirrhosis and ascites, g oes to liver center in [place] for care. Just was there. Recently had EGD and colonoscopy by Dr. Surendra camara. She is back here in the hospital with shortness of breath. I see that instead of 100 mg spiron olactone, she is only taking 25 mg, so I have put her on IV Lasix in the hospital. She is significan tly improved. I have given her 2 units of packed RBCs because she had a drop in hemoglobin. She has no signs of melena or hematemesis. Dr. Victoria has seen the patient and will follow up if necessary on outpatient basis and actually is going back to [place]. She is discharged in stable condition wit h hemoglobin more than 9 after 2 units of packed RBCs. I have added Lasix 20 mg once a day. I have raised her spironolactone to 100 mg once a day, which is removing the fluid properly because of aldos terone blockage. Currently, she is stable. She has pancytopenia from cirrhosis of liver. Hemoglobi n 9.1, platelets of 46,000 which is at her baseline. AUSTIN/ISABELLEL Voice ID: [id number] Report ID: [id number]
== END 2019-09-25 14:44 | disposition home or self-care (01) | DRG 432 ==
LOC: ER 10:48 → ERHOLD 14:10 → 4TH 15:01 → OBSVTOIN 09-24 08:18
PROVIDERS: ADMIT Internal Medicine; ATTEND Internal Medicine
PROC: 30233N1 Transfusion of Nonautologous Red Blood Cells into Peripheral Vein, Percutaneous Approach (ICD-10-PCS; principal; 2019-09-24)
DX: K74.60 Unspecified cirrhosis of liver (principal); I81 Portal vein thrombosis; I50.31 Acute diastolic (congestive) heart failure; R18.8 Other ascites; K76.6 Portal hypertension; D61.818 Other pancytopenia; I11.0 Hypertensive heart disease with heart failure; D64.9 Anemia, unspecified; Z88.0 Allergy status to penicillin
CPT/HCPCS: 36415; 36430; 71045; 71275; 74177; 80048; 80076; 81001; 83690; 83735; 83880; 84484; 85014; 85018; 85025; 85049; 85610; 86850; 86900; 86901; 87086; 87088; 93005; 93306; 93970; 99285; G0378; J1940; J7030; P9016; Q9967

== ENCOUNTER 2020-12-09 10:15 | Emergency (ER) | payer OTHER ==
--- OUTSIDE RECORDS SUMMARY | 2020-12-09 10:18 | XMS REPORT | Clinical Summary ---
:1950 Author Organization [facility] Address [address] [place] [address] Care Team Providers Name Role Phone Asked, Pcp Primary Care Provider Unavailable Allergies Active [...] Problems Problem Noted Date Postmenopausal bleeding 02/23/2017 Medical History Medical History Date Comments Liver cirrhosis (HCC) fatty tissue grew around it Family History Medical History Relation Name Comments No Known Problems Father No Known Problems Mother Relation Name Status Comments Father Mother Social History Tobacco Use Types Packs/Day Years Used Date Never Smoker Smokeless Tobacco: Never Used Alcohol Use Drinks/Week oz/Week Comments No Sex Assigned at Date Recorded Not on file Obstetrics History Grav Para Term Pre Abrt (TAB) (SAB) (Ect) Mult Lvng Comments 6 6 5 Date Outcome GA Total Labor/2nd/3rd Weight Sex Delivery Anes PTL Dagmar A 1 A5 Name Clin Labor Para Para Para Para Para Para Last Filed Vital Signs Not on file Plan of Treatment Health Maintenance Due Date Last Done Comments COVID-19 VACCINE (1 of 2) 1966 BREAST CANCER SCREENING 2000 COLONOSCOPY SCREENING 2000 SHINGLES VACCINES (#1) 2000 65+ PNEUMOCOCCAL VACCINE (1 of 1 - PPSV23) 2015 INFLUENZA VACCINE 05/17/2020 Results Not on fileafter 12/09/2019 Insurance Payer Benefit Plan / Subscriber ID Effective Dates Phone Addre ss Type Group MEDICARE MEDICARE PART A [id number] 2015-Present EMERITA Wolf, [place] Medicare AND B Advance Directives For more information, please contact: [phone] Type Date Recorded Patient Campaign Developer Explanati on Advance Directives, Living Will and Medical Power of Lpta
--- OUTSIDE RECORDS SUMMARY | 2020-12-09 10:20 | XMS REPORT | Clinical Summary ---
:1950 Author Organization [facility] Address [address] [place] [address] Care Team Providers Name Role Phone Franklin Neal Primary Care Provider Allergies Active Allergy Reactions Severity Noted Date Comments Ciprofloxacin Other (See Comments) 12/08/2015 Rednes s at injection site Penicillins Rash Low 11/05/2015 Other reaction( s): Hives Medications Medication Sig Dispensed Refills Start Date End Date Status rifAXIMin 550 mg Take 1 180 tablet 3 08/01/2020 A ctive TabIndications: tablet (550 Hepatic mg total) by encephalopathy mouth 2 (HCC), Other (two) times cirrhosis of liver daily. (HCC), Other ascites, Screening for cancer, Portal hypertension (HCC), Hyperkalemia, Cirrhosis of liver with ascites, unspecified hepatic cirrhosis type (HCC) lactulose Take 30 mLs 2700 mL 15 08/01/2020 Active (CHRONULAC) 10 (20 g total) gram/15 mL (15 mL) by mouth 3 solutionIndications (three) : Cirrhosis of times daily. liver with ascites, unspecified hepatic cirrhosis type (HCC), Screening for cancer, Other cirrhosis of liver (HCC), Other ascites, Portal hypertension (HCC), Hepatic encephalopathy (HCC), Hyperkalemia aspirin 81 MG Take 1 90 tablet 3 10/25/2020 Activ e chewable tablet tablet (81 2 mg total) by mouth daily. spironolactone Take 0.5 15 tablet 2 12/08/2020 Acti ve (ALDACTONE) 50 MG tablets (25 1 tabletIndications: mg total) by Cirrhosis of liver mouth daily with ascites, for 90 days. unspecified hepatic cirrhosis type (HCC), Screening for cancer, Other cirrhosis of liver (HCC), Other ascites, Portal hypertension (HCC), Hepatic encephalopathy (HCC), Hyperkalemia furosemide (LASIX) Take 1 30 tablet 2 12/08/2020 Active 20 MG tablet (20 1 tabletIndications: mg total) by Other ascites mouth daily for 90 days. midodrine Take 1 90 tablet 2 12/08/2020 Active (PROAMATINE) 5 MG tablet (5 mg 1 tablet total) by mouth 3 (three) times daily for 90 days. rifAXIMin 550 mg Take 1 180 tablet 3 07/02/2019 D iscontinued TabIndications: tablet (550 0 (R eorder) Hepatic mg total) by encephalopathy mouth 2 (HCC), Other (two) times cirrhosis of liver daily. (HCC), Other ascites, Screening for cancer, Portal hypertension (HCC), Hyperkalemia, Cirrhosis of liver with ascites, unspecified hepatic cirrhosis type (HCC) lactulose Take 30 mLs 2700 mL 15 11/15/2019 Discont inued (CHRONULAC) 10 (20 g total) 0 (R eorder) gram/15 mL (15 mL) by mouth 3 solutionIndications (three) : Cirrhosis of times daily. liver with ascites, unspecified hepatic cirrhosis type (HCC), Screening for cancer, Other cirrhosis of liver (HCC), Other ascites, Portal hypertension (HCC), Hepatic encephalopathy (HCC), Hyperkalemia spironolactone Take 1 90 tablet 1 11/15/2019 Disc ontinued (ALDACTONE) 50 MG tablet (50 0 ( Reorder) tabletIndications: mg total) by Cirrhosis of liver mouth daily. with ascites, unspecified hepatic cirrhosis type (HCC), Screening for cancer, Other cirrhosis of liver (HCC), Other ascites, Portal hypertension (HCC), Hepatic encephalopathy (HCC), Hyperkalemia furosemide (LASIX) Take 1 30 tablet 11 11/15/2019 Discontinued 40 MG tablet (40 0 (Dose tabletIndications: mg total) by adjustment) Other ascites mouth daily. furosemide (LASIX) Take 20 mg 1 11/08/2019 Discontinued 20 MG tablet by mouth 0 (Reorde r) daily. spironolactone Take 1 90 tablet 2 05/07/2020 Disc ontinued (ALDACTONE) 50 MG tablet (50 0 ( Reorder) tabletIndications: mg total) by Cirrhosis of liver mouth daily. with ascites, unspecified hepatic cirrhosis type (HCC), Screening for cancer, Other cirrhosis of liver (HCC), Other ascites, Portal hypertension (HCC), Hepatic encephalopathy (HCC), Hyperkalemia furosemide (LASIX) Take 1 20 tablet 1 08/01/2020 Discontinued 20 MG tablet (20 1 (Reorder) tabletIndications: mg total) by Other ascites mouth daily. spironolactone Take 1 90 tablet 2 08/01/2020 Disc ontinued (ALDACTONE) 50 MG tablet (50 1 ( Reorder) tabletIndications: mg total) by Cirrhosis of liver mouth daily. with ascites, unspecified hepatic cirrhosis type (HCC), Screening for cancer, Other cirrhosis of liver (HCC), Other ascites, Portal hypertension (HCC), Hepatic encephalopathy (HCC), Hyperkalemia cephalexin (KEFLEX) Take 1 14 capsule 0 09/27/2020 10/04/20 2 500 MG capsule capsule (500 0 mg total) by mouth 2 (two) times daily for 7 days. atorvastatin Take 1 90 tablet 3 10/24/2020 Discon tinued (LIPITOR) 80 MG tablet (80 1 (St op Taking at tablet mg total) by [facility] ge) mouth nightly. 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 10/24/2020 Visual field cut 10/23/2020 Portal vein thrombosis 02/15/2020 Iron deficiency anemia secondary to inadequate dietary iron intake 02/15/2020 SOB (shortness of breath) 09/25/2019 Generalized abdominal pain 09/10/2019 Community acquired bacterial pneumonia 09/10/2019 Abnormal magnetic resonance imaging of chest 8 Screening for cancer 10/26/2016 Fatty liver disease, nonalcoholic 05/04/2016 Acute kidney injury 11/08/2015 Acute confusion 11/07/2015 Cirrhosis of liver without ascites 11/05/2015 Last Assessment & Plan: Cirrhosis with decompensation symptoms ( ascites, varices) diagnosed via CT imaging in September 2015. Etiology unknown at this time. ethnicity and obesity are risk factors for cirrhosis due to non-alcohol ic fatty liver disease. Full hepatic work workup [...] Discussed importance of compliance with medications and followin g a low sodium diet restricted to less [...] and numerous abdominal and pelvic varices. Treated wi th propranolol 60 mg per day and diuretics. [...] & Plan: Symptoms of increased confusion and melissa ry loss over the past 2 months was reported by daughter and . Tremor but no d efinite asterixis today. Xifaxan 550 mg BID prescribed. Family educated regarding th e importance of taking the medication to reduce ammonia in the bloodstream and t hat the ammonia causes confusion. Encounters Date Type Specialty Care Team Description 12/05/2020 Abstract Transplant Kelly Escobedo, Hepatology RN 11/27/2020 Orders Only General Internal Medicine 11/26/2020 Hospital Encounter Cardiology Elizabeth, Page IPF (idi opathic pulmonary fibrosis) (HCC) (Primary Dx); Shakir Meehan DO NAFLD (nonalcoholic fatty liver disease) ; 12/08/2020 Athreya, Cirrhosis of li jessica without ascites, unspecified hepatic cirrhosis type (HCC); Medhatannan JOSE MANUEL (acute kidn ey injury) (HCC); Adia Waldron MD Other ascites; Shiekh Decompensated l iver disease (HCC); Yolanda Estrada Fatty liver d isease, nonalcoholic; MD Ondnia Iron deficiency anemia secondary to inadequate dietary iron intake; Class 1 obesity without serious comorbidity with body mass index (BMI) of 32.0 to 32.9 in adult, unspecified obesity type; Portal hyperten aubrie (HCC); Acute kidney in jury (HCC); Hepatic encepha lopathy (HCC); Cirrhosis of li jessica with ascites, unspecified hepatic cirrhosis type (HCC); Abnormal liver function tests; Anemia, unspeci fied type; Altered mental status, unspecified altered mental status type; Screening for c ancer; Other cirrhosis of liver (HCC); Hyperkalemia; 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 (HCC) 11/26/2020 Travel 10/24/2020 Travel 10/23/2020 Emergency Cardiology Jaswant, Visual field cu t (Primary Dx); - MD Baudilio Dizziness; 10/24/2020 , 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 (HCC) MD Ryan 10/23/2020 Travel 09/27/2020 Emergency Emergency Adam Guillaume ss (Primary Dx); Medicine MD Tad Urinary tract i nfection without hematuria, site unspecified; Hypophosphatemi a 09/27/2020 Orders Only General Internal Medicine 09/27/2020 Travel 08/22/2020 Telephone Hepatology Marcella Casiano Procedure L (EGD/Colonoscop y) 08/06/2020 Office Visit Hepatology Obed James Other cirrhosi s of MD Bairon liver (HCC) (Primary Tonia, Dx) JOHNY Webster 08/01/2020 Orders Only Hepatology Tonia, Hepatic encepha lopathy (HCC); Tanmayi A., Other cirrhosis of liver (HCC); 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 Other ascites; Screening for c ancer; Portal hyperten aubrie (HCC); Hyperkalemia; Cirrhosis of li jessica with ascites, unspecified hepatic cirrhosis type (HCC) 07/25/2020 Telephone Hepatology Alessandro Gagnon MA 06/25/2020 Telephone Hepatology Tonia, Returning call Shreyas Carlton 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 06/17/2020 Abstract Hepatology Nancy Song RN 06/17/2020 Documentation Hepatology Shreyas Randall, [facility] 05/07/2020 Orders Only Hepatology Alonzo Laird Cirrhosis of li jessica with ascites, unspecified hepatic cirrhosis type (HCC); NASREEN Mahoney Screening for c ancer; Other cirrhosis of liver (HCC); Other ascites; Portal hyperten aubrie (HCC); Hepatic encepha lopathy (HCC); Hyperkalemia 02/26/2020 Abstract Hepatology Nancy Song, GLADIS 02/26/2020 Abstract Hepatology Nancy Song, RN 02/19/2020 Documentation Hepatology Mariia Earl RN 02/14/2020 Audio - Telemedicine Hepatology Eitan Alonzo Cirrhos is of liver with ascites, unspecified hepatic cirrhosis type (HCC) (Primary Dx); NASREEN Mahoney Portal vein thr ombosis; Fatty liver dis ease, nonalcoholic; Portal hyperten aubrie (HCC); Hepatic encepha lopathy (HCC); Immunity status testing; Other ascites; Class 1 obesity without serious comorbidity with body mass index (BMI) of 32.0 to 32.9 in adult, unspecified obesity type; Screening for c ancer; Abnormal magnet ic resonance imaging of chest; Iron deficiency anemia secondary to inadequate dietary iron intake 02/13/2020 Telephone Hepatology Eneida Trinidad, anthony telem edicine MA appt 02/13/2020 Documentation Hepatology Anusha Mcghee, 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 12/31/2019 Documentation Hepatology Kirill Bloom PA after 12/09/2019 Family History Patient is adopted Relation Name Status Comments Father Mother Social History Tobacco Use Types Packs/Day Years Used Date Former Smoker 0.25 0.5 Quit: 10/17/18 96 Smokeless Tobacco: Never Used Comments: States she never really smoked . Alcohol Use Drinks/Week oz/Week Comments No social, last dri nk was Aug 2015 Sex Assigned at Date Recorded Not on file COVID-19 Exposure Response Date Recorded In the last month, have you been in contact with No / Unsure 11/26/2020 1:25 PM NITRO WORKER someone who was confirmed or suspected to have Coronavirus / COVID-19? Last Filed Vital Signs Vital Sign Reading Time Taken Comments Blood Pressure 107/54 12/08/2020 11:33 AM NITRO WORKER Pulse 71 12/08/2020 11:33 AM NITRO WORKER Temperature 36.7 C (98.1 F) 12/08/2020 11:33 AM NITRO WORKER Respiratory Rate 18 12/08/2020 11:33 AM NITRO WORKER Oxygen Saturation 100% 12/08/2020 11:33 AM NITRO WORKER Inhaled Oxygen Concentration - - Weight 99.8 kg (220 lb) 11/26/2020 1:22 PM NITRO WORKER Height 167.6 cm (5' 6") 11/26/2020 1:22 PM NITRO WORKER Body Mass Index 35.51 11/26/2020 1:22 PM NITRO WORKER Plan of Treatment Date Type Specialty Care Team Description 02/04/2021 Orders Only Transplant Hepatology 02/04/2021 Office Visit Hepatology Health Maintenance Due Date Last Done Comments BREAST CANCER SCREENING 1950 DTAP/TDAP/TD VACCINES (1 - Tdap) 1969 SHINGLES VACCINES (1 of 2) 2000 PNEUMOCOCCAL 65+ YRS (1 of 1 - 2015 04/17/2015 [id number]) MEDICARE ANNUAL WELLNESS (YEAR 2 or FIRST 06/18/2016 YEAR if no IPPE) INFLUENZA VACCINE (#1) 2020 09/23/2015 DEPRESSION SCREENING (12+) 10/17/2020 COLON CANCER SCREENING COLONOSCOPY 08/13/2029 08/13/2019, 0 12/08/2015 HEPATITIS C SCREENING Completed 11/05/2015 Procedures Procedure Name Priority Date/Time Associated Comments Diagnosis CBC W/PLT COUNT & AUTO Routine 12/08/2020 5:36 R esults for this DIFFERENTIAL AM NITRO WORKER procedure are i n the results section. CREATINE KINASE (CK) Routine 12/08/2020 5:36 Res ults for this AM NITRO WORKER procedure are i n the results section. CBC W/PLT COUNT & AUTO Routine 12/08/2020 5:36 R esults for this DIFFERENTIAL AM NITRO WORKER procedure are i n the results section. PHOSPHORUS Routine 12/08/2020 5:36 Results for this AM NITRO WORKER procedure are i n the results section. MAGNESIUM Routine 12/08/2020 5:36 Results for this AM NITRO WORKER procedure are i n the results section. COMPREHENSIVE Routine 12/08/2020 5:36 Results fo r this METABOLIC PANEL AM NITRO WORKER procedure ar e in the results section. CALCIUM, IONIZED Routine 12/08/2020 5:36 Results for this AM NITRO WORKER procedure are i n the results section. PROTHROMBIN TIME/INR Routine 12/08/2020 5:36 Res ults for this AM NITRO WORKER procedure are i n the results section. HEPATIC FUNCTION PANEL Routine 12/08/2020 5:36 R esults for this AM NITRO WORKER procedure are i n the results section. US RENAL COMPLETE Routine 12/08/2020 4:25 Result s for this AM NITRO WORKER procedure are i n the results section. CREATININE, RANDOM Routine 12/07/2020 8:18 Resul ts for this URINE PM NITRO WORKER procedure are i n the results section. PROTEIN, RANDOM URINE Routine 12/07/2020 8:18 Re sults for this PM NITRO WORKER procedure are i n the results section. SODIUM, RANDOM URINE Routine 12/07/2020 8:18 Res ults for this PM NITRO WORKER procedure are i n the results section. URINALYSIS W/ Routine 12/07/2020 8:18 Results fo r this MICROSCOPIC PM NITRO WORKER procedure are i n the results section. CBC W/PLT COUNT & AUTO Routine 12/07/2020 4:55 R esults for this DIFFERENTIAL AM NITRO WORKER procedure are i n the results section. CBC W/PLT COUNT & AUTO Routine 12/07/2020 4:55 R esults for this DIFFERENTIAL AM NITRO WORKER procedure are i n the results section. PHOSPHORUS Routine 12/07/2020 4:55 Results for this AM NITRO WORKER procedure are i n the results section. MAGNESIUM Routine 12/07/2020 4:55 Results for this AM NITRO WORKER procedure are i n the results section. COMPREHENSIVE Routine 12/07/2020 4:55 Results fo r this METABOLIC PANEL AM NITRO WORKER procedure ar e in the results section. CALCIUM, IONIZED Routine 12/07/2020 4:55 Results for this AM NITRO WORKER procedure are i n the results section. PROTHROMBIN TIME/INR Routine 12/07/2020 4:55 Res ults for this AM NITRO WORKER procedure are i n the results section. HEPATIC FUNCTION PANEL Routine 12/07/2020 4:55 R esults for this AM NITRO WORKER procedure are i n the results section. CBC W/PLT COUNT & AUTO Routine 12/06/2020 4:55 R esults for this DIFFERENTIAL AM NITRO WORKER procedure are i n the results section. MAGNESIUM Routine 12/06/2020 4:55 Results for this AM NITRO WORKER procedure are i n the results section. COMPREHENSIVE Routine 12/06/2020 4:55 Results fo r this METABOLIC PANEL AM NITRO WORKER procedure ar e in the results section. CBC W/PLT COUNT & AUTO Routine 12/06/2020 4:55 R esults for this DIFFERENTIAL AM NITRO WORKER procedure are i n the results section. HEPATIC FUNCTION PANEL Routine 12/06/2020 4:55 R esults for this AM NITRO WORKER procedure are i n the results section. CBC W/PLT COUNT & AUTO Routine 12/05/2020 5:02 R esults for this DIFFERENTIAL AM NITRO WORKER procedure are i n the results section. B-TYPE NATRIURETIC Routine 12/05/2020 5:02 Resul ts for this FACTOR (BNP) AM NITRO WORKER procedure are i n the results section. CBC W/PLT COUNT & AUTO Routine 12/05/2020 5:02 R esults for this DIFFERENTIAL AM NITRO WORKER procedure are i n the results section. PHOSPHORUS Routine 12/05/2020 5:02 Results for this AM NITRO WORKER procedure are i n the results section. MAGNESIUM Routine 12/05/2020 5:02 Results for this AM NITRO WORKER procedure are i n the results section. COMPREHENSIVE Routine 12/05/2020 5:02 Results fo r this METABOLIC PANEL AM NITRO WORKER procedure ar e in the results section. HEPATIC FUNCTION PANEL Routine 12/05/2020 5:02 R esults for this AM NITRO WORKER procedure are i n the results section. PROTHROMBIN TIME/INR Routine 12/05/2020 5:02 Res ults for this AM NITRO WORKER procedure are i n the results section. CALCIUM, IONIZED Routine 12/05/2020 5:02 Results for this AM NITRO WORKER procedure are i n the results section. CBC W/PLT COUNT & AUTO Routine 12/04/2020 4:50 R esults for this DIFFERENTIAL AM NITRO WORKER procedure are i n the results section. BILIRUBIN, DIRECT Add-On 12/04/2020 4:50 Result s for this AM NITRO WORKER procedure are i n the results section. B-TYPE NATRIURETIC Routine 12/04/2020 4:50 Resul ts for this FACTOR (BNP) AM NITRO WORKER procedure are i n the results section. CBC W/PLT COUNT & AUTO Routine 12/04/2020 4:50 R esults for this DIFFERENTIAL AM NITRO WORKER procedure are i n the results section. PHOSPHORUS Routine 12/04/2020 4:50 Results for this AM NITRO WORKER procedure are i n the results section. MAGNESIUM Routine 12/04/2020 4:50 Results for this AM NITRO WORKER procedure are i n the results section. COMPREHENSIVE Routine 12/04/2020 4:50 Results fo r this METABOLIC PANEL AM NITRO WORKER procedure ar e in the results section. CALCIUM, IONIZED Routine 12/04/2020 4:50 Results for this AM NITRO WORKER procedure are i n the results section. XR CHEST 1 VIEW Routine 12/03/2020 7:08 Results for this PORTABLE/BEDSIDE PM NITRO WORKER procedure a re in the results section. SARS-COV2/RT-PCR ([facility] STAT 12/03/2020 6:50 R esults for this & REF LABS) PM NITRO WORKER procedure are i n the results section. CBC W/PLT COUNT & AUTO Routine 12/03/2020 5:10 R esults for this DIFFERENTIAL AM NITRO WORKER procedure are i n the results section. CBC W/PLT COUNT & AUTO Routine 12/03/2020 5:10 R esults for this DIFFERENTIAL AM NITRO WORKER procedure are i n the results section. MAGNESIUM Routine 12/03/2020 5:10 Results for this AM NITRO WORKER procedure are i n the results section. COMPREHENSIVE Routine 12/03/2020 5:10 Results fo r this METABOLIC PANEL AM NITRO WORKER procedure ar e in the results section. CBC W/PLT COUNT & AUTO Routine 12/02/2020 4:46 R esults for this DIFFERENTIAL AM NITRO WORKER procedure are i n the results section. CREATINE KINASE (CK) Routine 12/02/2020 4:46 Res ults for this AM NITRO WORKER procedure are i n the results section. CBC W/PLT COUNT & AUTO Routine 12/02/2020 4:46 R esults for this DIFFERENTIAL AM NITRO WORKER procedure are i n the results section. PHOSPHORUS Routine 12/02/2020 4:46 Results for this AM NITRO WORKER procedure are i n the results section. MAGNESIUM Routine 12/02/2020 4:46 Results for this AM NITRO WORKER procedure are i n the results section. COMPREHENSIVE Routine 12/02/2020 4:46 Results fo r this METABOLIC PANEL AM NITRO WORKER procedure ar e in the results section. CALCIUM, IONIZED Routine 12/02/2020 4:46 Results for this AM NITRO WORKER procedure are i n the results section. BILIRUBIN, DIRECT Routine 12/02/2020 4:46 Result s for this AM NITRO WORKER procedure are i n the results section. US ABDOMEN LIMITED Routine 12/01/2020 10:48 Resul ts for this AM NITRO WORKER procedure are i n the results section. CBC W/PLT COUNT & AUTO Routine 12/01/2020 4:57 R esults for this DIFFERENTIAL AM NITRO WORKER procedure are i n the results section. CREATINE KINASE (CK) Add-On 12/01/2020 4:57 Res ults for this AM NITRO WORKER procedure are i n the results section. CBC W/PLT COUNT & AUTO Routine 12/01/2020 4:57 R esults for this DIFFERENTIAL AM NITRO WORKER procedure are i n the results section. PROTHROMBIN TIME/INR Routine 12/01/2020 4:57 Res ults for this AM NITRO WORKER procedure are i n the results section. MAGNESIUM Routine 12/01/2020 4:57 Results for this AM NITRO WORKER procedure are i n the results section. COMPREHENSIVE Routine 12/01/2020 4:57 Results fo r this METABOLIC PANEL AM NITRO WORKER procedure ar e in the results section. PREPARE LEUKO-REDUCED Routine 11/30/2020 11:54 Re sults for this RBC PM NITRO WORKER procedure are i n the results section. CBC W/PLT COUNT & AUTO Routine 11/30/2020 5:08 R esults for this DIFFERENTIAL AM NITRO WORKER procedure are i n the results section. CBC W/PLT COUNT & AUTO Routine 11/30/2020 5:08 R esults for this DIFFERENTIAL AM NITRO WORKER procedure are i n the results section. PROTHROMBIN TIME/INR Routine 11/30/2020 5:08 Res ults for this AM NITRO WORKER procedure are i n the results section. MAGNESIUM Routine 11/30/2020 5:08 Results for this AM NITRO WORKER procedure are i n the results section. COMPREHENSIVE Routine 11/30/2020 5:08 Results fo r this METABOLIC PANEL AM NITRO WORKER procedure ar e in the results section. CBC (HEMOGRAM ONLY) Routine 11/29/2020 11:28 Resu lts for this PM NITRO WORKER procedure are i n the results section. BASIC METABOLIC PANEL Routine 11/29/2020 11:28 Re sults for this (7) PM NITRO WORKER procedure are i n the results section. XR ABDOMEN / KUB 1 Routine 11/29/2020 10:03 Resul ts for this VIEW PM NITRO WORKER procedure are i n the results section. POCT-GLUCOSE METER Routine 11/29/2020 8:35 Resul ts for this PM NITRO WORKER procedure are i n the results section. TRANSFUSE Routine 11/29/2020 5:58 LEUKO-REDUCED RED PM NITRO WORKER BLOOD CELLS TYPE AND SCREEN, Routine 11/29/2020 11:40 Results for this AUTOMATED AM NITRO WORKER procedure are i n the results section. CBC W/PLT COUNT & AUTO Routine 11/29/2020 5:21 R esults for this DIFFERENTIAL AM NITRO WORKER procedure are i n the results section. CBC W/PLT COUNT & AUTO Routine 11/29/2020 5:21 R esults for this DIFFERENTIAL AM NITRO WORKER procedure are i n the results section. PROTHROMBIN TIME/INR Routine 11/29/2020 5:21 Res ults for this AM NITRO WORKER procedure are i n the results section. MAGNESIUM Routine 11/29/2020 5:21 Results for this AM NITRO WORKER procedure are i n the results section. COMPREHENSIVE Routine 11/29/2020 5:21 Results fo r this METABOLIC PANEL AM NITRO WORKER procedure ar e in the results section. PREPARE LEUKO-REDUCED Routine 11/28/2020 11:54 Re sults for this RBC PM NITRO WORKER procedure are i n the results section. BLOOD CULTURE Routine 11/28/2020 10:36 Results fo r this PM NITRO WORKER procedure are i n the results section. BLOOD CULTURE Routine 11/28/2020 10:28 Results fo r this PM NITRO WORKER procedure are i n the results section. CALCIUM, IONIZED Routine 11/28/2020 6:01 Results for this AM NITRO WORKER procedure are i n the results section. CBC W/PLT COUNT & AUTO Routine 11/28/2020 4:24 R esults for this DIFFERENTIAL AM NITRO WORKER procedure are i n the results section. B-TYPE NATRIURETIC Routine 11/28/2020 4:24 Resul ts for this FACTOR (BNP) AM NITRO WORKER procedure are i n the results section. PHOSPHORUS Routine 11/28/2020 4:24 Results for this AM NITRO WORKER procedure are i n the results section. CALCIUM, IONIZED Routine 11/28/2020 4:24 Results for this AM NITRO WORKER procedure are i n the results section. CREATINE KINASE (CK) Routine 11/28/2020 4:24 Res ults for this AM NITRO WORKER procedure are i n the results section. CBC W/PLT COUNT & AUTO Routine 11/28/2020 4:24 R esults for this DIFFERENTIAL AM NITRO WORKER procedure are i n the results section. PROTHROMBIN TIME/INR Routine 11/28/2020 4:24 Res ults for this AM NITRO WORKER procedure are i n the results section. MAGNESIUM Routine 11/28/2020 4:24 Results for this AM NITRO WORKER procedure are i n the results section. COMPREHENSIVE Routine 11/28/2020 4:24 Results fo r this METABOLIC PANEL AM NITRO WORKER procedure ar e in the results section. PREPARE LEUKO-REDUCED Routine 11/27/2020 11:54 Re sults for this RBC PM NITRO WORKER procedure are i n the results section. UREA NITROGEN, RANDOM Routine 11/27/2020 8:46 Re sults for this URINE PM NITRO WORKER procedure are i n the results section. PROTEIN, RANDOM URINE Routine 11/27/2020 8:46 Re sults for this PM NITRO WORKER procedure are i n the results section. SODIUM, RANDOM URINE Routine 11/27/2020 8:46 Res ults for this PM NITRO WORKER procedure are i n the results section. CREATININE, RANDOM Routine 11/27/2020 8:46 Resul ts for this URINE PM NITRO WORKER procedure are i n the results section. URINALYSIS W/ Routine 11/27/2020 8:46 Results fo r this MICROSCOPIC PM NITRO WORKER procedure are i n the results section. VENOUS DOPPLER LEGS Routine 11/27/2020 4:38 Resu lts for this BILATERAL PM NITRO WORKER procedure are i n the results section. CBC (HEMOGRAM ONLY) Routine 11/27/2020 2:30 Resu lts for this PM NITRO WORKER procedure are i n the results section. TRANSFUSE Routine 11/27/2020 1:27 LEUKO-REDUCED RED PM NITRO WORKER BLOOD CELLS ECG 12-LEAD Routine 11/27/2020 12:15 PM NITRO WORKER Procedure Note - Interface, External Ris In - 11/27/2020 11:18 AM NITRO WORKER Ventricular Rate 68 BPM Atrial Rate 68 BPM QRS Duration 96 ms Q-T Interval 442 ms QTC Calculation(Bazett) 469 ms R [place] 6 degrees T [place] 25 degrees Accelerated Junctional rhyth m Cannot rule out Anterior inf arct , age undetermined Abnormal ECG When compared with ECG of 12:04, Junctional rhythm has replac ed Wide QRS rhythm Vent. rate has decreased BY 39 BPM ECG 12-LEAD Routine 11/27/2020 12:15 PM NITRO WORKER Resu lts for this procedure are i n the results section . CBC W/PLT COUNT & AUTO Routine 11/27/2020 3:55 AM NITRO WORKER Results for this DIFFERENTIAL procedure are i n the results section . CREATINE KINASE (CK) Routine 11/27/2020 3:55 AM NITRO WORKER Results for this procedure are i n the results section . B-TYPE NATRIURETIC FACTOR Routine 11/27/2020 3:55 AM NITRO WORKER Results for this (BNP) procedure are i n the results section . PHOSPHORUS Routine 11/27/2020 3:55 AM NITRO WORKER Resu lts for this procedure are i n the results section . CALCIUM, IONIZED Routine 11/27/2020 3:55 AM NITRO WORKER Results for this procedure are i n the results section . HEPATITIS B SURFACE ANTIBODY Routine 11/27/2020 3:55 AM NITRO WORKER Results for this procedure are i n the results section . ALPHA FETOPROTEIN (AFP), Routine 11/27/2020 3:55 AM NITRO WORKER Results for this TUMOR MARKER procedure are i n the results section . TROPONIN I Routine 11/27/2020 3:55 AM NITRO WORKER Resu lts for this procedure are i n the results section . CBC W/PLT COUNT & AUTO Routine 11/27/2020 3:55 AM NITRO WORKER Results for this DIFFERENTIAL procedure are i n the results section . PROTHROMBIN TIME/INR Routine 11/27/2020 3:55 AM NITRO WORKER Results for this procedure are i n the results section . MAGNESIUM Routine 11/27/2020 3:55 AM NITRO WORKER Resu lts for this procedure are i n the results section . COMPREHENSIVE METABOLIC Routine 11/27/2020 3:55 AM NITRO WORKER Results for this PANEL procedure are i n the results section . RETICULOCYTE COUNT Routine 11/27/2020 3:55 AM NITRO WORKER Results for this procedure are i n the results section . PERIPHERAL BLOOD SMEAR - Routine 11/27/2020 3:55 AM NITRO WORKER Results for this PATHOLOGIST REVIEW procedure are in the results section . TRANSFUSE LEUKO-REDUCED RED Routine 11/27/2020 2:21 AM NITRO WORKER BLOOD CELLS 2D ECHO W/ DOPPLER MARCELLO 11/26/2020 11:21 PM NITRO WORKER Results for this (CW/PW/COLOR) procedure are in the results section . MR ABDOMEN WITH & WITHOUT IV STAT 11/26/2020 5:45 PM NITRO WORKER Results for this CONTRAST procedure are i n the results section . TYPE AND SCREEN, AUTOMATED Routine 11/26/2020 2:49 PM NITRO WORKER Results for this procedure are i n the results section . TROPONIN I Routine 11/26/2020 2:49 PM NITRO WORKER Resu lts for this procedure are i n the results section . TSH/FREE T4 IF INDICATED Routine 11/26/2020 2:49 PM NITRO WORKER Results for this procedure are i n the results section . VITAMIN B12 AND FOLATE Routine 11/26/2020 2:49 PM NITRO WORKER Results for this procedure are i n the results section . IRON, TIBC, % SAT. (WITHOUT Routine 11/26/2020 2:49 PM NITRO WORKER Results for this FERRITIN) procedure are i n the results section . VITAMIN B12 Routine 11/26/2020 2:49 PM NITRO WORKER Resu lts for this procedure are i n the results section . FERRITIN Routine 11/26/2020 2:49 PM NITRO WORKER Resu lts for this procedure are i n the results section . LACTATE DEHYDROGENASE (LDH) Routine 11/26/2020 2:49 PM NITRO WORKER Results for this procedure are i n the results section . HAPTOGLOBIN Routine 11/26/2020 2:49 PM NITRO WORKER Resu lts for this procedure are i n the results section . SARS-COV2/RT-PCR (SLHS & REF STAT 11/26/2020 12:40 PM NITRO WORKER Results for this LABS) procedure are i n the results section . XR PELVIS 1 OR 2 VIEWS STAT 11/26/2020 9:55 AM NITRO WORKER Results for this procedure are i n the results section . CBC W/PLT COUNT & AUTO STAT 11/26/2020 9:53 AM NITRO WORKER Results for this DIFFERENTIAL procedure are i n the results section . RETICULOCYTE COUNT Add-On 11/26/2020 9:53 AM NITRO WORKER Results for this procedure are i n the results section . TROPONIN I STAT 11/26/2020 9:53 AM NITRO WORKER Resu lts for this procedure are i n the results section . COMPREHENSIVE METABOLIC STAT 11/26/2020 9:53 AM NITRO WORKER Results for this PANEL procedure are i n the results section . CBC W/PLT COUNT & AUTO STAT 11/26/2020 9:53 AM NITRO WORKER Results for this DIFFERENTIAL procedure are i n the results section . B-TYPE NATRIURETIC FACTOR STAT 11/26/2020 9:53 AM NITRO WORKER Results for this (BNP) procedure are i n the results section . XR CHEST 1 VIEW STAT 11/26/2020 9:51 AM NITRO WORKER R esults for this PORTABLE/BEDSIDE procedure a re in the results section . ECG 12-LEAD Routine 11/26/2020 9:46 AM NITRO WORKER Procedure Note - Interface, External Ris In - 11/28/2020 6:22 AM NITRO WORKER Ventricular Rate 92 BPM Atrial Rate 92 BPM P-R Interval 156 ms QRS Duration 102 ms Q-T Interval 408 ms QTC Calculation(Bazett) 504 ms P [place] 66 degrees R [place] 60 degrees T [place] 55 degrees Normal sinus rhythm Prolonged QT Abnormal ECG ECG 12-LEAD STAT 11/26/2020 9:46 AM NITRO WORKER Resu lts for this procedure are i n the results section . REPORT OF PROCEDURE - 11/26/2020 Result s for this ENDOSCOPY SCAN procedure are in the results section . ECG 12-LEAD Routine 10/24/2020 3:42 PM NITRO WORKER Resu lts for this procedure are i n the results section . 2D ECHO W/ DOPPLER Routine 10/24/2020 8:27 AM NITRO WORKER Results for this (CW/PW/COLOR) procedure are in the results section . CBC W/PLT COUNT & AUTO Routine 10/24/2020 5:29 AM NITRO WORKER Results for this DIFFERENTIAL procedure are i n the results section . CBC W/PLT COUNT & AUTO Routine 10/24/2020 5:29 AM NITRO WORKER Results for this DIFFERENTIAL procedure are i n the results section . PHOSPHORUS Routine 10/24/2020 5:29 AM NITRO WORKER Resu lts for this procedure are i n the results section . MAGNESIUM Routine 10/24/2020 5:29 AM NITRO WORKER Resu lts for this procedure are i n the results section . BASIC METABOLIC PANEL (7) Routine 10/24/2020 5:29 AM NITRO WORKER Results for this procedure are i n the results section . VITAMIN B12 AND FOLATE Routine 10/24/2020 5:29 AM NITRO WORKER Results for this procedure are i n the results section . TSH/FREE T4 IF INDICATED Routine 10/24/2020 5:29 AM NITRO WORKER Results for this procedure are i n the results section . LIPID PANEL Routine 10/24/2020 5:29 AM NITRO WORKER Resu lts for this procedure are i n the results section . HEMOGLOBIN A1C Routine 10/24/2020 5:29 AM NITRO WORKER Re sults for this procedure are i n the results section . CT/CTA CAROTID STAT 10/23/2020 11:44 PM NITRO WORKER Re sults for this procedure are i n the results section . CTA BRAIN STAT 10/23/2020 11:44 PM NITRO WORKER Resu lts for this procedure are i n the results section . C-REACTIVE PROTEIN Routine 10/23/2020 7:45 PM NITRO WORKER Results for this procedure are i n the results section . RPR Routine 10/23/2020 7:45 PM NITRO WORKER Resu lts for this procedure are i n the results section . MR BRAIN WITHOUT IV CONTRAST STAT 10/23/2020 6:27 PM NITRO WORKER Results for this procedure are i n the results section . SARS-COV2/RT-PCR (HS & REF STAT 10/23/2020 4:23 PM NITRO WORKER Results for this LABS) procedure are i n the results section . CT BRAIN/STROKE TEST DESIGN STAT 10/23/2020 3:20 PM NITRO WORKER Results for this procedure are i n the results section . CBC W/PLT COUNT & AUTO STAT 10/23/2020 2:56 PM NITRO WORKER Results for this DIFFERENTIAL procedure are i n the results section . COMPREHENSIVE METABOLIC STAT 10/23/2020 2:56 PM NITRO WORKER Results for this PANEL procedure are i n the results section . PT/APTT STAT 10/23/2020 2:56 PM NITRO WORKER Resu lts for this procedure are i n the results section . TROPONIN I STAT 10/23/2020 2:56 PM NITRO WORKER Resu lts for this procedure are i n the results section . PROTHROMBIN TIME/INR STAT 10/23/2020 2:56 PM NITRO WORKER Results for this procedure are i n the results section . CBC W/PLT COUNT & AUTO STAT 10/23/2020 2:56 PM NITRO WORKER Results for this DIFFERENTIAL procedure are i n the results section . URINALYSIS W/ MICROSCOPIC STAT 09/27/2020 2:54 PM NITRO WORKER Results for this procedure are i n the results section . ECG 12-LEAD Routine 09/27/2020 10:26 AM NITRO WORKER Procedure Note - Interface, External Ris In - 10/01/2020 3:17 PM NITRO WORKER Ventricular Rate 78 BPM Atrial Rate 78 BPM P-R Interval 142 ms QRS Duration 96 ms Q-T Interval 398 ms QTC Calculation(Bazett) 453 ms P [place] 50 degrees R [place] 42 degrees T [place] 58 degrees Sinus rhythm with Premature atrial complexes Otherwise normal ECG When compared with ECG of 08:25, Premature atrial complexes a re now Present Criteria for Inferior infarc t are no longer Present QT has shortened ECG 12-LEAD STAT 09/27/2020 10:26 AM Results for this NITRO WORKER procedure are i n the results section. CBC W/PLT COUNT & AUTO STAT 09/27/2020 10:26 AM Results for this DIFFERENTIAL NITRO WORKER procedure are i n the results section. PHOSPHORUS STAT 09/27/2020 10:26 AM Results for this NITRO WORKER procedure are i n the results section. B-TYPE NATRIURETIC STAT 09/27/2020 10:26 AM Re sults for this FACTOR (BNP) NITRO WORKER procedure are i n the results section. CBC W/PLT COUNT & AUTO STAT 09/27/2020 10:26 AM Results for this DIFFERENTIAL NITRO WORKER procedure are i n the results section. MAGNESIUM STAT 09/27/2020 10:26 AM Results for this NITRO WORKER procedure are i n the results section. COMPREHENSIVE STAT 09/27/2020 10:26 AM Results for this METABOLIC PANEL NITRO WORKER procedure ar e in the results section. AMMONIA STAT 09/27/2020 10:21 AM Results for this NITRO WORKER procedure are i n the results section. REPORT OF PROCEDURE - 09/27/2020 Result s for this ENDOSCOPY SCAN procedure are in the results section. CBC W/PLT COUNT & AUTO Routine 08/06/2020 2:24 PM Other cirrh osis of Results for this DIFFERENTIAL CDT liver (HCC) procedure are i n the results section. ALPHA FETOPROTEIN Routine 08/06/2020 2:24 PM Other cirrhosis of Results for this (AFP), TUMOR MARKER CDT liver (HCC) procedur e are in the results section. PROTHROMBIN TIME/INR Routine 08/06/2020 2:24 PM Other cirrhos is of Results for this CDT liver (HCC) procedure are i n the results section. CBC W/PLT COUNT & AUTO Routine 08/06/2020 2:24 PM Other cirrh osis of Results for this DIFFERENTIAL CDT liver (HCC) procedure are i n the results section. HEPATIC FUNCTION PANEL Routine 08/06/2020 2:24 PM Other cirrh osis of Results for this CDT liver (HCC) procedure are i n the results section. BASIC METABOLIC PANEL Routine 08/06/2020 2:24 PM Other cirrho sis of Results for this (7) CDT liver (HCC) procedure are i n the results section. HEPATIC FUNCTION PANEL Routine 12/18/2019 11:07 AM Cirrhosis o f liver Results for this NITRO WORKER with ascites, procedure are in unspecified hepatic the resu lts cirrhosis type section. (HCC) Screening for cancer CBC W/PLT COUNT & AUTO Routine 12/18/2019 11:07 AM Cirrhosis o f liver Results for this DIFFERENTIAL NITRO WORKER with ascites, procedure are in unspecified hepatic the resu lts cirrhosis type section. (HCC) Screening for cancer PROTHROMBIN TIME/INR Routine 12/18/2019 11:07 AM Cirrhosis of liver Results for this NITRO WORKER with ascites, procedure are in unspecified hepatic the resu lts cirrhosis type section. (HCC) Screening for cancer ALPHA FETOPROTEIN Routine 12/18/2019 11:07 AM Cirrhosis of diana er Results for this (AFP), TUMOR MARKER NITRO WORKER with ascites, procedu re are in unspecified hepatic the resu lts cirrhosis type section. (HCC) Screening for cancer BASIC METABOLIC PANEL Routine 12/18/2019 11:07 AM Cirrhosis of liver Results for this (7) NITRO WORKER with ascites, procedure are in unspecified hepatic the resu lts cirrhosis type section. (HCC) Screening for cancer after 12/09/2019 Results Calcium, Ionized (12/08/2020 5:36 AM NITRO WORKER)Only the most recent of8 resultswithin the time period is included. Pathologist Sig nature Calcium, Ion 1.09 (L) 1.12 - 1.27 mmol/L [facility] pH, Blood 7.36 [facility] Specimen Blood Performing Organization Address City/State/Zipcode Phone Number [facility] [address] [place] [address] CENTER CBC with platelet count + automated diff (12/08/2020 5:36 AM NITRO WORKER)Only the most recent of17 resultswithin the time period is included. Pathologist Sig nature WBC 3.3 (L) 3.5 - 10.5 [facility] K/L [facility] RBC 2.78 (L) 3.93 - 5.22 [facility] M/L [facility] Hemoglobin 7.8 (L) 11.2 - 15.7 [facility] GM/DL [facility] Hematocrit 26.6 (L) 34.1 - 44.9 % [facility] MCV 95.7 (H) 79.4 - 94.8 fL [facility] MCH 28.1 25.6 - 32.2 pg [facility] MCHC 29.3 (L) 32.2 - 35.5 [facility] GM/DL [facility] RDW 25.4 (H) 11.7 - 14.4 % [facility] Platelets 24 (L) 150 - 450 K/CU [facility] MPV 11.4 9.4 - 12.3 fL [facility] nRBC 0 0 - 0 /100 WBC [facility] % Neutros 64 % [facility] % Lymphs 17 % [facility] % Monos 13 % [facility] % Eos 5 % [facility] % Baso 1 % [facility] # Neutros 2.11 1.56 - 6.13 [facility] # Lymphs 0.55 (L) 1.18 - 3.74 [facility] # Monos 0.41 (H) 0.24 - 0.36 [facility] # Eos 0.17 0.04 - 0.36 [facility] # Baso 0.03 0.01 - 0.08 [facility] Immature 0 0 - 1 % [facility] Granulocytes-Relative [facility] Specimen Blood Performing Organization Address City/State/Zipcode Phone Number [facility] [address] [phone] CENTER Prothrombin time/INR (12/08/2020 5:36 AM NITRO WORKER)Only the most recent of11 results within the time period is included. Pathologist Sig nature Protime 19.0 (H) 11.9 - 14.2 seconds [facility] INR 1.66 <=5.90 [facility] Specimen Blood Narrative Performed At Effective 03/14/2019: PT Reference Range [facility] Change New: 11.9-14.2 Previous: 11.7-14.7 RECOMMENDED COUMADIN/WARFARIN INR THERAPY RANGES STANDARD DOSE: 2.0-3.0 Includes: PROPHYLAXIS for venous thrombosis, systemic embolization; TREATMENT for venous thrombosis and/or pulmonary embolus. HIGH RISK: Target INR is 2.5-3.5 for patients wiht mechanical heart valves. Performing Organization Address City/[facility] Phone Number [address] [address] CENTER Phosphorus (12/08/2020 5:36 AM NITRO WORKER)Only the most recent of9 resultswithin the time period is included. Pathologist Sig nature Phosphorus 2.8 2.3 - 4.7 mg/dL [facility] Specimen Blood Narrative Performed At Clinical Evaluator ID - ADMIN [facility] Performing Organization Address [facility] Centercomi Phone Number [address] [address] CENTER Magnesium (12/08/2020 5:36 AM NITRO WORKER)Only the most recent of14 resultswithin the time period is included. Pathologist Sig nature Magnesium 2.3 1.6 - 2.6 mg/dL [facility] Specimen Blood Narrative Performed At Clinical Evaluator ID - ADMIN [facility] Performing Organization Address [facility]/Zipcode Phone Number [address] [address] CENTER Creatine Kinase (CK) (12/08/2020 5:36 AM NITRO WORKER)Only the most recent of5 results within the time period is included. Pathologist Sig nature Total CK 35 29 - 200 U/L [facility] Specimen Blood Narrative Performed At Clinical Evaluator ID - ADMIN [facility] Performing Organization Address [facility] Centercode Phone Number [facility] [address] [place] [phone] [place] Hepatic function panel (12/08/2020 5:36 AM NITRO WORKER)Only the most recent of6 results within the time period is included. Pathologist Sig nature Protein, Total 5.3 (L) 6.0 - 8.3 gm/dL [facility] Albumin 2.1 (L) 3.5 - 5.0 g/dL [facility] Total Bilirubin 2.9 (H) 0.2 - 1.2 mg/dL [facility] Bilirubin, Direct 1.1 (H) 0.1 - 0.5 mg/dL [facility] Alkaline Phosphatase 105 40 - 150 U/L [facility] AST 29 5 - 34 U/L [facility] ALT 56 (H) 6 - 55 U/L [facility] Specimen Blood Narrative Performed At Clinical Evaluator ID - ADMIN [facility] Specimen slightly icteric Performing Organization Address City/[facility] Cent[facility]ode Phone Number [facility] [address] [place] [phone] [place] Comprehensive metabolic panel (12/08/2020 5:36 AM NITRO WORKER)Only the most recent of15 resultswithin the time period is included. Protein, Total 5.3 (L) 6.0 - 8.3 [facility] gm/dL [facility] Albumin 2.1 (L) 3.5 - 5.0 [facility] g/dL [facility] Alkaline 105 40 - 150 U/L [facility] Phosphatase [facility] Total Bilirubin 2.9 (H) 0.2 - 1.2 [facility] mg/dL [facility] Sodium 139 136 - 145 [facility] meq/L [facility] Potassium 4.4 3.5 - 5.1 [facility] meq/L [facility] Chloride 101 98 - 107 [facility] meq/L [facility] CO2 34 (H) 22 - 29 meq/L [facility] BUN 27 (H) 7 - 21 mg/dL [facility] Creatinine 1.18 0.57 - 1.25 [facility] mg/dL [facility] Glucose 131 (H) 70 - 105 [facility] mg/dL [facility] Calcium 7.7 (L) 8.4 - 10.2 [facility] mg/dL [facility] AST 29 5 - 34 U/L [facility] ALT 56 (H) 6 - 55 U/L [facility] EGFR 45Comment: mL/min/1.73 [facility] ESTIMATED GFR IS sq [facility] NOT ACCURATE MEDICAL CENTER CREATININE CLEARANCE IN PREDICTING GLOMERULAR FILTRATION RATE. ESTIMATED GFR IS NOT APPLICABLE FOR DIALYSIS PATIENTS. Specimen Blood Narrative Performed At Clinical Evaluator ID - ADMIN [facility] Specimen slightly icteric Performing Organization Address City/State/Zipcode Phone Number [facility] [address] [place] [address] CENTER US renal complete (12/08/2020 4:25 AM NITRO WORKER) Specimen Narrative Performed At FINAL REPORT [employer] U/S, RENAL, COMPLETE Ultrasound of the Kidneys Clinical History: jose manuel Discussion: Sonographic evaluation of the kidneys is performed. Right kidney: 12.0 x 6.3 x 6.3 cm, wit h cortical thickness of 1.5 cm. Normal cortical echogenicity. No mass. No shadowing calculus. Mild hydronephrosis. Left kidney: 9.9 x 5.6 x 4.9 cm, with co rtical thickness of 1.0 cm. Normal cortical echogenicity. No mass. No shadowing calculus. No hydronephrosis. Limited doppler evaluation of bilateral main renal arteries and veins demonstrate patency. Bladder: Unremarkable. Impression: Mild left hydronephrosis. Signed: Michael Tabares MD Report Verified Date/Time: 12/08/2020 05:26:28 Procedure Note Interface, External Ris In - 12/08/2020 5:28 AM NITRO WORKER FINAL REPORT U/S, RENAL, COMPLETE Ultrasound of the Kidneys Clinical History: jose manuel Discussion: Sonographic evaluation of the kidneys is performed. Right kidney: 12.0 x 6.3 x 6.3 cm, with cortical thickness of 1.5 cm. Normal cortical echogenicity. No m ass. No shadowing calculus. Mild hydronephrosis. Left kidney: 9.9 x 5.6 x 4.9 cm, with co rtical thickness of 1.0 cm. Normal cortical echogenicity. No mass. No shadowing calculus. No hydronephrosis. Limited doppler evaluation of bilateral main renal arteries and veins demonstrate patency. Bladder: Unremarkable. Impression: Mild left hydronephrosis. Signed: Michael Tabares MD Report Verified Date/Time: 12/08/2020 0 5:26:28 Performing Organization Address City/State/Zipcode Phone Number [facility] Sodium, random urine (12/07/2020 8:18 PM NITRO WORKER)Only the most recent of2 results within the time period is included. Pathologist Sig nature Sodium Urine 26 meq/L [facility] Specimen Urine Narrative Performed At Reference Range: No Normals [facility] Clinical Evaluator ID - BS Performing Organization Address City/State/Zipcode Phone Number [facility] [address] [place] [address] CENTER Protein, random urine (12/07/2020 8:18 PM NITRO WORKER)Only the most recent of2 results within the time period is included. Pathologist Sig nature Protein, Urine 32 (H) 0 - 14 mg/dL [facility] Specimen Urine Narrative Performed At Clinical Evaluator ID - BS [facility] Performing Organization Address City/[facility]/Zipcode Phone Number [address] [address] CENTER Creatinine, random urine (12/07/2020 8:18 PM NITRO WORKER)Only the most recent of2 resultswithin the time period is included. Pathologist Sig nature Creatinine, Ur 130.0 mg/dL [facility] [place] Specimen Urine Narrative Performed At Reference Range: No Normals [facility] Clinical Evaluator ID - BS Performing Organization Address [facility] Centercode Phone Number [address] [address] CENTER Urinalysis w/Microscopic (12/07/2020 8:18 PM NITRO WORKER)Only the most recent of3 resultswithin the time period is included. Color, UA Brown [facility] Clarity, UA Cloudy [facility] Specific [place], 1.017 1.001 - 1.035 [facility] pH, UA 5.5 5.0 - 8.0 [facility] Protein, UA 30 mg/dL (A) Negative [facility] Glucose, UA Negative Negative [facility] Ketones, UA Negative Negative [facility] Bilirubin, UA Negative Negative [facility] Blood, UA Large (A) Negative [facility] Nitrite, UA Negative Negative [facility] Leukocytes, UA Moderate (A) Negative [facility] Urobilinogen, UA 2.0 (H) 0.2 - 1.0 mg/dL [facility] RBC, UA 340 /HPF [facility] WBC, UA 81 /HPF [facility] Mucus Occasional [facility] Squam Epithel, UA 8 /HPF [facility] Specimen Source [facility] Specimen Urine Narrative Performed At Clinical Evaluator ID - [auto] [facility] Clinical Evaluator ID - tech Performing Organization Address City/[facility]/Zipcode Phone Number [address] [address] CENTER B-type Natriuretic Factor (BNP) (12/05/2020 5:02 AM NITRO WORKER)Only the most recent of 6 resultswithin the time period is included. Pathologist Sig nature BNP 231 (H) 0 - 100 pg/mL [facility] Specimen Blood - Entire left upper arm (body stru cture) Narrative Performed At Clinical Evaluator ID - EDASI [facility] [place] Performing Organization Address City/[facility]ercode Phone Number [address] [address] CENTER Bilirubin, direct (12/04/2020 4:50 AM NITRO WORKER)Only the most recent of2 results within the time period is included. Pathologist Sig nature Bilirubin, Direct 2.3 (H) 0.1 - 0.5 mg/dL [facility] Specimen Blood - Entire left upper arm (body stru cture) Narrative Performed At Clinical Evaluator ID - AAHAMID [facility] Performing Organization Address City/[facility]/Zipcode Phone Number [address] [address] CENTER XR chest 1 view portable / bedside (12/03/2020 7:08 PM NITRO WORKER)Only the most recent of2 resultswithin the time period is included. Specimen Narrative Performed At FINAL REPORT GE RIS RAD, CHEST, 1 VIEW, NON DEPT INDICATION: edema COMPARISON: November 26, 2020 FINDINGS: Portable frontal view of the c hest. IMPRESSION: Patient is rotated toward the left disto rting anatomic landmarks. Increased pulmonary airspace disease com patible worsening pulmonary edema or pneumonitis. Retrocardiac conso lidation present, likely atelectasis or confluent edema. Small pl eural effusions are not excluded. No pneumothorax. Cardiomediast inal silhouette is partially obscured and magnified by technique. Sta ble osseous structures. Signed: Michael Tabares MD Report Verified Date/Time: 12/03/2020 22:22:17 Procedure Note Interface, External Ris In - 12/03/2020 10:24 PM NITRO WORKER FINAL REPORT RAD, CHEST, 1 VIEW, NON DEPT INDICATION: edema COMPARISON: November 26, 2020 FINDINGS: Portable frontal view of the c hest. IMPRESSION: Patient is rotated toward the left disto rting anatomic landmarks. Increased pulmonary airspace disease com patible worsening pulmonary edema or pneumonitis. Retrocardiac conso lidation present, likely atelectasis or confluent edema. Small pl eural effusions are not excluded. No pneumothorax. Cardiomediast inal silhouette is partially obscured and magnified by technique. Sta ble osseous structures. Signed: Michael Tabares MD Report Verified Date/Time: 12/03/2020 2 2:22:17 Performing Organization Address City/State/Zipcode Phone Number RIS SARS-CoV2/RT-PCR (Asymptomatic ONLY) (12/03/2020 6:50 PM NITRO WORKER)Only the most recent of3 resultswithin the time period is included. SARS-COV2/RT-PCR Negative Not Detected, ELAYNE POWERS Negative, See [facility] external report CENTER for linked test SARS-COV-2 [facility] DENITA POWERS PERFORMING LAB [facility] Specimen Other - Nasopharyngeal wall structure (b heavenly structure) Narrative Performed At Negative result for this test determines that [facility] Kwabena [facility] SARS-CoV-2 RNA was not present in the specimen above the Limit of Detection (LOD). However, Negative results do not preclude SARS-CoV-2 infection and should not be used as the sole basis for treatment or patient management decisions. Negative results must be combined with clinical observations, patient history, and epidemiological information. A false negative result may occur if a specimen is improperly collected, transported or handled. A false negative result should be considered if patient's recent exposures or clinical presentation indicate that COVID-19 (SARS-CoV-2) is likely and diagnostic tests for other causes of illness are negative. Re-testing should be considered in cases of suspected false negatives. The limit of detection for this assay is 800 copies/mL. This SARS CoV-2 test is a real-time RT-PCR test intended for the qualitative detection of nucleic acid from SARS-CoV-2 in a nasopharyngeal swab specimen collected from individuals suspected of COVID-19 by their healthcare provider. This test has not been Food and Drug Administration (FDA) cleared or approved. This is a modified version of an approved Emergency Use Authorization (EUA) and is in the process of review by the FDA. Once authorized by the FDA, the issued EUA will be effective until the declaration that circumstances exist justifying the authorization of the emergency use of in vitro diagnostic tests for detection and/or diagnosis of COVID-19 is terminated under Section 564(b)(2) of the Act or the EUA is revoked under Section 564(g) of the Act. Fact Sheet for Healthcare Providers: https://www.[employer].com/sites/default/files/pro duct/documents/Fact_Sheet_HC_Providers_Lyra_SA RS-CoV-2.pdf Fact Sheet for Healthcare Patients: https://www.[employer].com/sites/default/files/pro duct/documents/Fact_Sheet_Patients_Lyra_SARS-C oV-2.pdf Performing Laboratory: [address] [place] [address] Performing Organization Address City/State/Zipcode Phone Number [address] [address] CENTER US abdomen limited (12/01/2020 10:48 AM NITRO WORKER) Specimen Narrative Performed At FINAL REPORT [facility] U/S, ABDOMINAL, LIMITED CLINICAL HISTORY: diagnostic. Limit 2 L for therapeutic. COMPARISON: Abdominal MRI 12/06/2020 TECHNIQUE: Real time transverse and long itudinal images of the abdominal quadrants were obtained. FINDINGS / IMPRESSION: Small volume ascites, mostly perihepatic , insufficient for paracentesis, no paracentesis performed. Signed: Kell Miller MD Report Verified Date/Time: 12/01/2020 13:39:28 Reading Location: [facility] B1 C013Y CT Body R eading Room Procedure Note Interface, External Ris In - 12/01/2020 1:41 PM NITRO WORKER FINAL REPORT U/S, ABDOMINAL, LIMITED CLINICAL HISTORY: diagnostic. Limit 2 L for therapeutic. COMPARISON: Abdominal MRI 12/06/2020 TECHNIQUE: Real time transverse and long itudinal images of the abdominal quadrants were obtained. FINDINGS / IMPRESSION: Small volume ascites, mostly perihepatic , insufficient for paracentesis, no paracentesis performed. Signed: Kell Miller MD Report Verified Date/Time: 12/01/2020 1 3:39:28 Reading Location: [facility] B1 C013Y CT Body R eading Room Performing Organization Address City/[facility] Phone Number GE RIS Prepare Leuko-Red RBC (11/30/2020 11:54 PM NITRO WORKER)Only the most recent of3 results within the time period is included. Pathologist Sig dereck CROSSMATCH COMPATIBLE SAFETRACE TX Unit ABO A Pos SAFETRACE TX UNIT NUMBER [id number] SAFETRACE TX Status TX_TIMEINCHART SAFETRACE TX Blood Bank Product RED BLOOD CELLS SAFETRACE TX PRODUCT CODE [id number] [facility] [place] Specimen Other Performing Organization Address City/[facility]/Zipcode Phone Number SAFETRACE TX CBC (Hemogram only) (11/29/2020 11:28 PM NITRO WORKER)Only the most recent of2 results within the time period is included. Pathologist Eric harden WBC 5.7 3.5 - 10.5 K/L [facility] RBC 3.01 (L) 3.93 - 5.22 M/L [facility] Hemoglobin 7.8 (L) 11.2 - 15.7 GM/DL [facility] Hematocrit 26.4 (L) 34.1 - 44.9 % [facility] MCV 87.7 79.4 - 94.8 fL [facility] MCH 25.9 25.6 - 32.2 pg [facility] MCHC 29.5 (L) 32.2 - 35.5 GM/DL [facility] RDW 18.7 (H) 11.7 - 14.4 % [facility] Platelets 41 (L) 150 - 450 K/CU MM [facility] MPV 10.3 9.4 - 12.3 fL [facility] nRBC 0 0 - 0 /100 WBC [facility] Specimen Blood Performing Organization Address City/State/Zipcode Phone Number [facility] [address] [place] [address] CENTER Basic Metabolic Panel (11/29/2020 11:28 PM NITRO WORKER)Only the most recent of4 results within the time period is included. Sodium 140 136 - 145 meq/L [facility] Potassium 3.9 3.5 - 5.1 meq/L [facility] Chloride 107 98 - 107 meq/L [facility] CO2 26 22 - 29 meq/L [facility] BUN 25 (H) 7 - 21 mg/dL [facility] Creatinine 1.13 0.57 - 1.25 [facility] mg/dL [facility] Glucose 141 (H) 70 - 105 mg/dL [facility] Calcium 7.7 (L) 8.4 - 10.2 [facility] mg/dL [facility] EGFR 48Comment: ESTIMATED mL/min/1.73 sq [facility] GFR IS NOT m [facility] ACCURATE [place] CREATININE CLEARANCE IN PREDICTING GLOMERULAR FILTRATION RATE. ESTIMATED GFR IS NOT APPLICABLE FOR DIALYSIS PATIENTS. Specimen Blood Narrative Performed At Clinical Evaluator ID - MURALI Yuan [facility] Specimen slightly icteric Performing Organization Address City/State/Zipcode Phone Number [place] [phone] CENTER XR abdomen / KUB 1 view (11/29/2020 10:03 PM NITRO WORKER) Specimen Narrative Performed At FINAL REPORT GE RIS RAD, ABDOMEN/KUB, 1 VIEW AP CLINICAL HISTORY: constipation TECHNIQUE: RAD, ABDOMEN/KUB, 1 VIEW AP COMPARISON: None IMPRESSION: The bowel gas pattern is nonspecific/non obstructive. Efkvi-gf-szjnlveb volume fecal burden vi sualized. Supine imaging insensitive for exclusion of free air. B ilateral pulmonary airspace disease present. Signed: Michael Tabares MD Report Verified Date/Time: 11/30/2020 03:41:22 Procedure Note Interface, External Ris In - 11/30/2020 3:43 AM NITRO WORKER FINAL REPORT RAD, ABDOMEN/KUB, 1 VIEW AP CLINICAL HISTORY: constipation TECHNIQUE: RAD, ABDOMEN/KUB, 1 VIEW AP COMPARISON: None IMPRESSION: The bowel gas pattern is nonspecific/non obstructive. Fnvvn-gq-ixmlnkcv volume fecal burden vi sualized. Supine imaging insensitive for exclusion of free air. B ilateral pulmonary airspace disease present. Signed: Michael Tabares MD Report Verified Date/Time: 11/30/2020 0 3:41:22 Performing Organization Address City/State/Zipcode Phone Number [place] POC-Glucose meter (11/29/2020 8:35 PM NITRO WORKER) POC-Glucose Meter 130 (H) 70 - 110 mg/dL [facility] Comment: [facility] : TESTED AT [facility] [address] [place] [address], [address] CENTER : Clinical Evaluator/Marbleizing Machine Tender ID = [id number] for SHERRY FISHER Specimen Blood Performing Organization Address [facility]/Zipcode Phone Number [address] [address] CENTER Transfuse Leuko-Red RBC (11/29/2020 5:58 PM NITRO WORKER)Only the most recent of3 resultswithin the time period is included.Type and screen, automated (11/29/2020 11:40 AM NITRO WORKER)Only the most recent of2 resultswithin the time period is included. Pathologist Sig nature ABO/RH AUTOMATED A POSITIVE [facility] Ab Scrn NEGATIVE [facility] Specimen Blood Performing Organization Address [facility] Phone Number [address] [address] Blood Culture - Routine (Right Venipuncture) (11/28/2020 10:36 PM NITRO WORKER)Only the most recent of2 resultswithin the time period is included. Pathologist Sig nature Result No growth in 5 days [facility] Specimen Blood - Entire right upper arm (body str ucture) Performing Organization Address [facility] Phone Number [address] [address] [place] Urea Nitrogen, random urine (11/27/2020 8:46 PM NITRO WORKER) Pathologist Sig nature Urea Nitrogen, Ur 914 mg/dL [facility] Specimen Urine Narrative Performed At Reference Range: No Normals [facility] Clinical Evaluator ID - BS Performing Organization Address [facility] Centercode Phone Number [address] [address] CENTER Venous doppler legs bilateral (11/27/2020 4:38 PM NITRO WORKER) Pathologist Sig nature Ejection Fraction [facility] ECHO HEARTLAB MKCK ESS[facility] CPACS Specimen Impressions Performed At Right Impression [facility] ECHO HEARTLAB MKCKESSON CPACS 1. There is no deep venous obstruction in the common femoral, profunda femoral, femoral, popliteal, posterior tibial or peroneal veins. 2. There is no superficial venous obstruction in the great saphenous vein. Left Impression 1. There is no deep venous obstruction in the common femoral, profunda femoral, femoral, popliteal, posterior tibial or peroneal veins. 2. There is no superficial venous obstruction in the great saphenous vein. Conclusions Summary Venous duplex imaging and compression of the bilateral lower extremities were performed. The veins were adequately visualized. The bilateral venous systems were patent and compressible with no evidence of thrombus. The venous Doppler waveforms were pulsatile indicating possible elevated right heart filling pressure. Signature Velocities are measured in cm/s ; Diameters are measured in cm Narrative Performed At PV LAB - Lower Extremities DVT Study [facility] Demographics Patient Name FRANCO RAMÍREZ Date of Study 11/27/2020 KEREN Age 70 Visit Number [id number] Gender Female Accession Number [id number] Date of 1950 Referring Melissa Ferrera Room Number 2423 Physician Roastmaster Ilene Ramos Capri Interpreting Physician ANAMIKA Nieves Procedure Type of Study: Veins: Lower Extremities DVT Study, VENOUS DOPPLER LEG, BILATERAL. Indications for Study:Leg swelling. Patient Status:Routine. Study Location:Vascular Lab. Technical Quality:Adequate visualization . Risk Factors History of Disease + +----+ + !Diagnosis !Date!Comments ! + +----+ + !History/Risk Factors:! !JOSE MANUEL, cirrhosis, stroke, former smoker (1995) ! + +----+ + Procedure Note Interface, External Ris In - 11/28/2020 8:49 AM NITRO WORKER PV LAB - Lower Extremities DVT Study Demographics Patient Name FRANCO RAMÍREZ Da te of Study 11/27/2020 KEREN Ag e 70 Visit Number [id number] Ge nder Female Accession Number [id number] Da te of 1950 Referring Melissa Nelsonmarlin Ruelas om Number [id number] Physician Roastmaster Ilene Ramos RVT In terpreting Yulisa Gee, Ph ysician Procedure Type of Study: Veins: Lower Extremities DVT Study, ANAYELI OUS DOPPLER LEG, BILATERAL. Indications for Study:Leg swelling. Patient Status:Routine. Study Location:Vascular Lab. Technical Quality:Adequate visualization . Risk Factors History of Disease + +----+ + !Diagnosis !Date!Comments ! + +----+ + !History/Risk Factors:! !JOSE MANUEL, cirrhos is, stroke, former smoker (1995) ! + +----+ + Impressions Right Impression 1. There is no deep venous obstruction i n the common femoral, profunda femoral, femoral, popliteal, posterior t ibial or peroneal veins. 2. There is no superficial venous obstru ction in the great saphenous vein. Left Impression 1. There is no deep venous obstruction i n the common femoral, profunda femoral, femoral, popliteal, posterior t ibial or peroneal veins. 2. There is no superficial venous obstru ction in the great saphenous vein. Conclusions Summary Venous duplex imaging and compression o f the bilateral lower extremities were performed. The veins were adequate ly visualized. The bilateral venous systems were patent and compressible wi th no evidence of thrombus. The venous Doppler waveforms were pulsatile indicating possible elevated right heart filling pressure. Signature Velocities are measured in cm/s ; Diamet ers are measured in cm Performing Organization Address City/State/[facility] Center[facility] Phone Number [facility] ECG 12 lead (11/27/2020 12:15 PM NITRO WORKER)Only the most recent of4 resultswithin the time period is included. Specimen Narrative Performed At This result has an attachment that is no t available. Ventricular Rate 68 BPM GE MUSE Atrial Rate 68 BPM QRS Duration 96 ms Q-T Interval 442 ms QTC Calculation(Bazett) 469 ms R [place] 6 degrees T [place] 25 degrees sinus poor tracing Confirmed by MD Shelton Roberto ([id number]) on 11/27 2:03:51 PM Procedure Note Interface, External Ris In - 11/27/2020 2:03 PM NITRO WORKER Ventricular Rate 68 BPM Atrial Rate 68 BPM QRS Duration 96 ms Q-T Interval 442 ms QTC Calculation(Bazett) 469 ms R [place] 6 degrees T [place] 25 degrees sinus poor tracing Confirmed by MD Shelton Roberto ([id number]) on 11/27/2020 2:03:51 PM Performing Organization Address City/State/Zipcode Phone Number GE MUSE Peripheral Blood Smear - Path Review (11/27/2020 3:55 AM NITRO WORKER) Pathologist Review No circulating [facility] blasts. [facility] increased schistocytes. Pathologist: Constantine Linn [facility] AGGIE Alejandro([employer] [facility]) [facility] Specimen Blood Performing Organization Address City/[facility]/Zipcode Phone Number [place] [phone] [place] [address] CENTER Troponin I (11/27/2020 3:55 AM NITRO WORKER)Only the most recent of4 resultswithin the time period is included. Pathologist Sig nature Troponin I 0.19 (H) 0.00 - 0.03 ng/mL [facility] Specimen Blood Narrative Performed At Troponin I (TnI) levels must be interpreted [facility] in the context of the presenting symptoms and the clinical findings. Elevated TnI levels indicate myocardial damage, but are not specific for ischemic heart disease. Elevated TnI levels are seen in patients with other cardiac conditions (including myocarditis and congestive heart failure), and slight TnI elevations occur in patients with other conditions, including sepsis, renal failure, acidosis, acute neurological disease, and persistent tachyarrhythmia. Clinical Evaluator ID - SM Performing Organization Address City/State/Zipcode Phone Number [address] [address] CENTER Alpha fetoprotein (AFP), tumor marker (11/27/2020 3:55 AM NITRO WORKER)Only the most recent of3 resultswithin the time period is included. Pathologist Sig nature Alpha-Fetoprotein <2.0 <10.0 ng/mL [facility] Specimen Blood Narrative Performed At Clinical Evaluator ID - ALIZA M [facility] Performing Organization Address [facility] Centercode Phone Number [address] [address] [place] Hepatitis B surface antibody (11/27/2020 3:55 AM NITRO WORKER) Pathologist Sig nature Hep B S Ab <8.0 <8.0 mIU/mL [facility] Specimen Blood Narrative Performed At Clinical Evaluator ID - ALIZA M [facility] Performing Organization Address City/[facility]/Zipcode Phone Number [address] [address] [place] Reticulocyte count (11/27/2020 3:55 AM NITRO WORKER)Only the most recent of2 results within the time period is included. Pathologist Sig nature % Retic 2.3 (H) 0.5 - 1.7 % [facility] Specimen Blood Narrative Performed At Clinical Evaluator ID - [id number] [facility] Performing Organization Address City/[facility]/Zipcode Phone Number [address] [address] CENTER 2D Echo W/Doppler(CW/PW/Color) (11/26/2020 11:21 PM NITRO WORKER) Pathologist Sig nature Ejection Fraction [facility] Specimen Narrative Performed At Transthoracic Echocardiography Report (T TE) [facility] ECHO HEARTLAB CKESSON CPACS Demographics Patient Name FRANCO RAMÍREZ Date of Study 11/26/2020 KEREN Gender Female Visit Number [id number] Race Unknown Room Number 2423 Number Date of 1950 Referring PATEL LOMELI Physician Age 70 year(s) Roastmaster SULEMA Clark Interpreting Narendra becerra Physician Procedure Type of Study TTE procedure:2DECHO W DOPPLER(CW/PW/COLOR) (MARCELLO) Indications:Shortness of breath. Clinical History OBESITY CIRRHOSIS STROKE HGB 6.8 HCT 22.7 % Height: 66 inches Weight: 99.79 kg (220 lbs) BSA: 2.08 m^2 BMI: 35.51 kg/m^2 HR: 66 bpm BP: 119/59 mmHg Summary The left ventricle is chamber size (by PSLAX dimension) is normal (female - LVIDd 3.8-5.2cm) . All of the LV segments contract normally . Estimated LVEF by qualitative assessment is jada l (>60%) . Grade 1 diastolic dysfunction (impaired relaxation and low-normal LA pressure). The right ventricular chamber size and systolic function are within normal limits. Estimated peak systolic PA pressure is cannot be determined due to inadequate TR velocity signal . Previous Study In comparison with the prior exam on 10/24/20 there are no significant changes. Signature Findings Left Ventricle The LV endocardium is adequately visualized. The left ventricle is chamber size (by PSLAX dimension) is normal (female - LVIDd 3.8-5.2cm) . Normal LV wall thickness. All of the LV segments contract normally . Estimated LVEF by qualitative assessment is normal (>60 %) . Grade 1 diastolic dysfunction (impaired relaxati on and low-normal LA pressure). Left Atrium LA is well visualized. LA size is severely enlarged (>48 ml/m2) . Right Ventricle The right ventricular chamber size and systolic function are within normal limits. Right Atrium RA size is normal. Aortic Valve Normal AoV structure. There is no aortic stenosis. There is no aortic regurgitation. Mitral Valve Normal MV s tructure. Mild mitral regurgitation. Tricuspid Valve TV structure is normal. A trace of tricuspid regurgitation. Estimated peak systolic PA pressure is cannot be determined due to inadequate TR velocity signal . Pulmonic Valve Normal PV structure and function by limited views and Doppler. Pericardium A small pericardial effusion is present . IVC/SVC/PA/PV/Pleural The estimated RA pressure by IVC dynamics 5-10mmHg . Chambers/Structures Left Atrium LA Dimension: 4.51 cm LA Area: 27.98 cm^2 LA Volume: 101.99 ml LA Vol. Index: 49 ml/m^2 Left Ventricle LVIDd: 5.29 cm LVEDV:185.03 ml LVIDs: 2.86 cm LV Septum Diastolic: 1.12 cm LV PW Diastolic: 1.17 cm LV FS: 45.9 % LVEDV Mendoza's:82.62 ml LVESV Mendoza's:25.45 ml LVEDVI: 40 ml/m^2 LVEF Mendoza's: 69.2 % LVESVI: 12 ml/m^2 LVOT Diameter: 2.2 cm Right Ventricle RVOT VTI: 23.99 cm Aorta Ao Root S of Stefanie.: 2.86 cm Ascending Aorta: 3 cm Doppler/Quantitative Measurements Mitral Valve MV Peak E-Wave: 0.74 m/s MV Peak A-Wave: 1.02 m/s E/A Ratio: 0.72 Peak Gradient: 2.16 mmHg Deceleration Time: 187.5 msec MV Travis. Peak: Aortic Valve Peak Velocity: 2.21 m/s Mean Velocity: 1.54 m/s Peak Gradient: 19.55 mmHg Mean Gradient: 10.9 mmHg AV Area (continuity): 2.68 cm^2 AV VTI: 46.98 cm AV DVI: 0.71 LVOT Peak Velocity: 1.54 m/s Peak Gradient: 9.5 mmHg Mean Velocity: 1.12 m/s Mean Gradient: 5.63 mmHg LVOT Diameter: 2.2 cm LVOT VTI: 33.19 cm LVOT Area: 3.8 cm^2 LVOT SV:126.1 ml LVOT CO: 8.32 l/min LVOT CI: 4 l/min/m^2 Tricuspid Valve TR Velocity: 3.1 m/s TR Gradient: 38.54 mmHg Procedure Note Interface, External Ris In - 11/27/2020 8:39 AM NITRO WORKER Transthoracic Echocardiography Report (TTE) Demographics Patient Name FRANCO RAMÍREZ Date of Study 11/26/2020 KEREN Gende r Female Visit Number [id number] Race Unknown Room Number 2423 Number Date of 1950 Refer ring PATEL romano Age 70 year(s) Sonog raphenabeel Bear, [facility] Errol Jernigan MD Procedure Type of Study TTE procedure:2DECHO W DOPPLE R(CW/PW/COLOR) (MARCELLO) Indications:Shortness of breath. Clinical History OBESITY CIRRHOSIS STROKE HGB 6.8 HCT 22.7 % Height: 66 inches Weight: 99.79 kg (220 lbs) BSA: 2.08 m^2 BMI: 35.51 kg/m^2 HR: 66 bpm BP: 119/59 mmHg Summary The left ventricle is chamber size (by PSLAX dimension) is normal (female - LVIDd 3.8-5.2cm) . All of the LV segm ents contract normally . Estimated LVEF by qualitative assessment is jada l (>60%) . Grade 1 diastolic dysfunction (impaired relaxation and low-normal LA pressure). The right ventricular chamber size and systolic function are within normal limits. Estimated peak systolic PA pressure is cannot be determined due to inadequate TR velocity signal . Previous Study In comparison with the prior exam on 10/24/20 there are no significant changes. Signature Findings Left Ventricle The LV endocardi um is adequately visualized. The left ventric le is chamber size (by PSLAX dimension) is no rmal (female - LVIDd 3.8-5.2cm) . Normal LV wall t hickness. All of the LV se gments contract normally . Estimated LVEF b y qualitative assessment is normal (>60%) . Grade 1 diastoli c dysfunction (impaired relaxation and low-normal L A pressure). Left Atrium LA is well visua lized. LA size is sever steph enlarged (>48 ml/m2) . Right Ventricle The right ventri cular chamber size and systolic function are wit hin normal limits. Right Atrium RA size is jada l. Aortic Valve Normal AoV struc ture. There is no aort ic stenosis. There is no aort ic regurgitation. Mitral Valve Normal MV struct ure. Mild mitral regu rgitation. Tricuspid Valve TV structure is normal. A trace of tricu spid regurgitation. Estimated peak s ystolic PA pressure is cannot be determined due t o inadequate TR velocity signal . Pulmonic Valve Normal PV struct ure and function by limited views and Doppler. Pericardium A small pericard ial effusion is present . IVC/SVC/PA/PV/Pleural The estimated RA pressure by IVC dynamics 5-10mmHg . Chambers/Structures Left Atrium LA Dimension: 4.51 cm LA Area: 27.98 cm^2 LA Volume: 101.99 ml LA Vol. Index: 49 ml/m^2 Left Ventricle LVIDd: 5.29 cm LVEDV:185.03 ml LVIDs: 2.86 cm LV Septum Diastolic: 1.12 cm LV PW Diastolic: 1.17 cm LV FS: 45.9 % LVEDV Mendoza's:82.62 ml LVESV Mendoza's:25.45 ml LVEDVI: 40 ml/m^2 LVEF Mendoza's: 69.2 % LVESVI: 12 ml/m^2 LVOT Diameter: 2.2 cm Right Ventricle RVOT VTI: 23.99 cm Aorta Ao Root S of Stefanie.: 2.86 cm Ascending Aorta: 3 cm Doppler/Quantitative Measurements Mitral Valve MV Peak E-Wave: 0.74 m/s MV P eak A-Wave: 1.02 m/s E/A Ratio: 0.72 Peak Gradient: 2.16 mmHg Dece leration Time: 187.5 msec MV Travis. Peak: Aortic Valve Peak Velocity: 2.21 m/s Mean Velocity: 1.54 m/s Peak Gradient: 19.55 mmHg Mean Gradient: 10.9 mmHg AV Area (continuity): 2.68 cm^2 AV VTI: 46.98 cm AV DVI: 0.71 LVOT Peak Velocity: 1.54 m/s Pea k Gradient: 9.5 mmHg Mean Velocity: 1.12 m/s Noris n Gradient: 5.63 mmHg LVOT Diameter: 2.2 cm LVO T VTI: 33.19 cm LVOT Area: 3.8 cm^2 LVO T SV:126.1 ml LVOT CO: 8.32 l/min LVO T CI: 4 l/min/m^2 Tricuspid Valve TR Velocity: 3.1 m/s TR Gradient: 38.54 mmHg Performing Organization Address City/State/Zipcode Phone Number [facility] MR abdomen without & with IV contrast (11/26/2020 5:45 PM NITRO WORKER) Specimen Narrative Performed At FINAL REPORT [employer] [facility] TECHNIQUE: MRI of the abdomen WITHOUT an d WITH intravenous contrast. INDICATION: Portal hypertension. COMPARISON: Chest CT from 09/10/2019. MR I from 01/19/2018 FINDINGS: LOWER THORAX: There are findings of pulm onary fibrosis with for better assessed on the prior chest CT. T race left pleural effusion. LIVER: Nodular, cirrhotic liver. No foca l hepatic lesions. BILIARY: Stones layer in the gallbladder . No gallbladder distention. No biliary ductal dilatation or filling defect. SPLEEN: No splenomegaly. There are multi ple wedge-shaped defects in the spleen, likely related to prior sple arsenio infarcts. PANCREAS: No focal masses or ductal dila tation. There are at least five cystic lesions in the pancreas whic h measure up to 1.2 cm in the pancreatic head. A majority of these wer e not seen on the prior examination. However, the largest is unc hanged. ADRENALS: No adrenal nodules. KIDNEYS/URETERS: No hydronephrosis or so lid mass lesions. PERITONEUM/RETROPERITONEUM: Large volume ascites. LYMPH NODES: No lymphadenopathy. VESSELS: Accessory left hepatic artery o riginates from the left gastric artery. A periumbilical vein is recanalized. Small esophageal varices. The main portal vein is patent and measures 1.4 cm in diameter. GI TRACT: No distention or wall thickeni ng. BONES AND SOFT TISSUES: Diffuse anasarca . IMPRESSION: 1.No suspicious focal hepatic lesion. 2.Cirrhosis with sequelae of portal hype rtension including splenomegaly, large volume ascites, and small esophageal varices. 3.There are chronic appearing splenic in farcts which are new compared to the examination from 01/19/2018. 4.Multiple pancreatic cystic lesions noris sure up to 1.2 cm. This largest cyst is unchanged, but several o ther smaller lesions are new. 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 A follow-u p MRI of the abdomen with and without intervenous contrast with MRCP i s recommended in one year to document stability. 5.Cholelithiasis. Signed: Tonya Doss MD Report Verified Date/Time: 11/26/2020 20:05:06 Reading Location: [facility] C0Y CT Body R [facility] Procedure Note Interface, External Ris In - 11/26/2020 8:07 PM NITRO WORKER FINAL REPORT TECHNIQUE: MRI of the abdomen WITHOUT an d WITH intravenous contrast. INDICATION: Portal hypertension. COMPARISON: Chest CT from 09/10/2019. MR I from 01/19/2018 FINDINGS: LOWER THORAX: There are findings of pulm onary fibrosis with for better assessed on the prior chest CT. T race left pleural effusion. LIVER: Nodular, cirrhotic liver. No foca l hepatic lesions. BILIARY: Stones layer in the gallbladder . No gallbladder distention. No biliary ductal dilatation or filling defect. SPLEEN: No splenomegaly. There are multi ple wedge-shaped defects in the spleen, likely related to prior sple arsenio infarcts. PANCREAS: No focal masses or ductal dila tation. There are at least five cystic lesions in the pancreas whic h measure up to 1.2 cm in the pancreatic head. A majority of these wer e not seen on the prior examination. However, the largest is unc hanged. ADRENALS: No adrenal nodules. KIDNEYS/URETERS: No hydronephrosis or so lid mass lesions. PERITONEUM/RETROPERITONEUM: Large volume ascites. LYMPH NODES: No lymphadenopathy. VESSELS: Accessory left hepatic artery o riginates from the left gastric artery. A periumbilical vein is recanalized. Small esophageal varices. The main portal vein is patent and measures 1.4 cm in diameter. GI TRACT: No distention or wall thickeni ng. BONES AND SOFT TISSUES: Diffuse anasarca . IMPRESSION: 1.No suspicious focal hepatic lesion. 2.Cirrhosis with sequelae of portal hype rtension including splenomegaly, large volume ascites, and small esophageal varices. 3.There are chronic appearing splenic in farcts which are new compared to the examination from 01/19/2018. 4.Multiple pancreatic cystic lesions noris sure up to 1.2 cm. This largest cyst is unchanged, but several o ther smaller lesions are new. 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 A follow-u p MRI of the abdomen with and without intervenous contrast with MRCP i s recommended in one year to document stability. 5.Cholelithiasis. Signed: Tonya Doss MD Report Verified Date/Time: 11/26/2020 2 0:05:06 Reading Location: [facility] C013Y CT Body R [facility] Room Performing Organization Address City/State/Zipcode Phone Number [facility] Vitamin B12 and Folate (11/26/2020 2:49 PM NITRO WORKER)Only the most recent of2 results within the time period is included. Pathologist Sig nature Vitamin B12 659 213 - 816 pg/mL [facility] Folate 12.20 >=7.00 ng/mL [facility] Specimen Blood Narrative Performed At Clinical Evaluator ID - BS [facility] Performing Organization Address City/State/Zipcode Phone Number [facility] [address] [place] [address] CENTER TSH/Free T4 If Indicated (11/26/2020 2:49 PM NITRO WORKER)Only the most recent of2 resultswithin the time period is included. Pathologist Sig nature TSH 1.498 0.350 - 4.940 uIU/mL [facility] Specimen Blood Narrative Performed At Clinical Evaluator ID - BS [facility] Performing Organization Address [facility] Phone Number [address] [address] CENTER Iron, TIBC, % sat. (without ferritin) (11/26/2020 2:49 PM NITRO WORKER) Pathologist Sig nature Iron 17.0 (L) 40.0 - 160.0 [facility] ug/dL [facility] TIBC 228 (L) 250 - 450 ug/dL [facility] Iron % Saturation 7 (L) 20 - 55 % [facility] Specimen Blood Narrative Performed At Clinical Evaluator ID - BS [facility] Performing Organization Address [facility] Phone Number [address] [address] CENTER Lactate dehydrogenase (LDH) (11/26/2020 2:49 PM NITRO WORKER) Pathologist Sig nature LDH 555 (H) 125 - 220 U/L [facility] Specimen Blood Narrative Performed At Clinical Evaluator ID - BS [facility] Performing Organization Address City/[facility] Cent[facility] Phone Number [address] [address] CENTER Haptoglobin (11/26/2020 2:49 PM NITRO WORKER) Pathologist Sig nature Haptoglobin 52 14 - 258 mg/dL [facility] Specimen Blood Narrative Performed At Clinical Evaluator ID - BS [facility] Performing Organization Address [facility] Cent[facility]ode Phone Number [place] [phone] [place] [address] CENTER Ferritin (11/26/2020 2:49 PM NITRO WORKER) Pathologist Sig nature Ferritin 18.49 5.00 - 275.00 ng/mL [facility] Specimen Blood Narrative Performed At Clinical Evaluator ID - BS [facility] Performing Organization Address [facility] Centercomi Phone Number [address] [address] [place] Vitamin B12 (11/26/2020 2:49 PM NITRO WORKER) Pathologist Sig nature Vitamin B12 623 213 - 816 pg/mL [facility] Specimen Blood Narrative Performed At Clinical Evaluator ID - BS [facility] Performing Organization Address [facility] Phone Number [address] [address] [place] XR pelvis 1 or 2 views (11/26/2020 9:55 AM NITRO WORKER) Specimen Narrative Performed At FINAL REPORT GE [facility]IS CLINICAL HISTORY: LEG PAIN HIP PAIN TECHNIQUE: AP pelvis COMPARISON: None IMPRESSION: The pelvis appears intact without eviden ce of fracture or dislocation on the single frontal view. Signed: Sangeeta Jackson MD Report Verified Date/Time: 11/26/2020 10:30:11 Reading Location: [facility] Reading Room Procedure Note Interface, External Ris In - 11/26/2020 10:32 AM NITRO WORKER FINAL REPORT CLINICAL HISTORY: LEG PAIN HIP PAIN TECHNIQUE: AP pelvis COMPARISON: None IMPRESSION: The pelvis appears intact without eviden ce of fracture or dislocation on the single frontal view. Signed: Sangeeta Jackson MD Report Verified Date/Time: 11/26/2020 1 0:30:11 Reading Location: [facility] Reading Room Performing Organization Address City/State/Zipcode Phone Number GE RIS EKG-SCANNED (11/26/2020)Only the most recent of2 resultswithin the time period is included. Narrative Performed At This result has an attachment that is no t available. Ordered by an unspecified provider. 2D Echo W/Doppler(CW/PW/Color) (10/24/2020 8:27 AM NITRO WORKER) Pathologist Sig nature Ejection Fraction [facility] ECHO [facility]ARTLAB [facility] Specimen Narrative Performed At Transthoracic Echocardiography Report (T TE) [facility] ECHO HEARTLAB [facility] Demographics Patient Name FRANCO RAMÍREZ Date of Study 10/24/2020 KEREN Gender Female Visit Number [id number] Race Unknown Room Number 1011 Number Date of 1950 Referring Baudilio Michaud Physician Age 70 year(s) Roastmaster Kristofer Morales, [facility] Antonina, [facility] Sheila Interpreting Narendra zaldivar, Physician Fellow Zia Villalobos MD Procedure Type of Study TTE procedure:2DECHO W DOPPLER(CW/PW/COLOR) (Routine) Indications:Suspected cardiac source of emboli. Clinical History CIRRHOSIS;OBESITY;SOB;ABD PAIN;STROKE. Contrast Medium: Bubble Study. Height: 66 inches Weight: 89.36 kg (197 lbs) BSA: 1.99 m^2 BMI: 31.8 kg/m^2 HR: 78 bpm BP: 121/58 mmHg Summary IV saline contrast injection was negative for a PFO (patent foramen ovale) at rest and post Valsalva. IV saline contrast with delayed imaging demonstrates intra pulmonic shunting. A negative IV agitated saline study does not definitively rule out a PFO in situations of poor patient Valsalva effort (and high LA pressure), excessive competitive IVC venous flow not visible on TTE and with tiny defects. TTE and LJ may be complementary for inconclusive studies when PFO detection is clinically relevant. PFO's are a normal variant finding in at least 30% of individuals. Signature Findings Rhythm/BP Regular sinus rhythm during the exam. Left Ventricle The LV endocardium is adequately visualized. The left ventricle is chamber size (by vol index) is normal (male - LVED vol - 34-74ml/m2). Normal LV wall thickness. All of the LV segments contract normally . LVEF by Mendoza's method of disk assessment is normal (55-60%) . LV diastolic function is indeterminate. Left Atrium LA is well visualized. LA size is severely enlarged (>48 ml/m2) . Right Ventricle The right ventricular chamber size and systolic function are within normal limits. Right Atrium RA size is normal. Atrial Septum IV saline contrast injection was negative for a PFO (patent foramen ovale) at rest and post Valsalva . IV saline contrast with delayed imaging demonstrates intra pulmonic shunting. A negative IV agitated saline study does not definitively rule out a PFO in situations of poor patient Valsalva effort (and high LA pressure), excessive competitive IVC venous flow not visible on TTE and with tiny defects. TTE and LJ may be complementary for inconclusive studies when PFO detection is clinically relevant. PFO's are a normal variant finding in at least 30% of mary viduals. Aortic Valve Normal AoV structure. There is no aortic stenosis. There is no aortic regurgitation. Mitral Valve Normal MV s tructure. Mild mitral regurgitation. Tricuspid Valve TV structure is normal. A trace of tricuspid regurgitation. Estimated peak systolic PA pressure is cannot be determined due to inadequate TR velocity signal . Pulmonic Valve Normal PV structure and function by limited views and Doppler. Aorta Aortic root size (SInus of Valsalva diameter) is norm al . Proximal ascending aorta size is normal . Pericardium A small pericardial effusion is present . IVC/SVC/PA/PV/Pleural The estimated RA pressure by IVC dynamics 5-10mmHg . Chambers/Structures Left Atrium LA Volume: 98.78 ml LA Area: 26.38 cm^2 LA Vol. Index: 50 ml/m^2 Left Ventricle LVIDd: 5.35 cm LVEDV:153.66 ml LVIDs: 3.09 cm LV Septum Diastolic: 1.07 cm LV PW Diastolic: 1.1 cm LV FS: 42.2 % LVEDV Mendoza's:102.97 ml LVESV Mendoza's:43.02 ml LVEDVI: 52 ml/m^2 LVEF Mendoza's: 58.2 % LVESVI: 22 ml/m^2 LVOT Diameter: 2.01 cm Right Ventricle RV Diast Dim.: 4.01 cm TAPSE: 2.42 cm RVOT VTI: 25.46 cm Aorta Ao Root S of Stefanie.: 2.96 cm Ascending Aorta: 3.21 cm Doppler/Quantitative Measurements Mitral Valve MV Peak E-Wave: 0.65 m/s MV Peak A-Wave: 0.93 m/s E/A Ratio: 0.69 Mean Velocity: 0.66 m/s Peak Gradient: 1.67 mmHg Mean Gradient: 2.01 mmHg Deceleration Time: 217 msec Area (continuity): 3.17 cm^2 PISA Radius: 0.61 cm MR Velocity: 5.31 m/s MR VTI: 176.89 cm MV EROA (PISA): 2.34 cm^2 MV Travis. Peak: 1.13 m/s MV VTI: 26.32 cm Tissue Doppler E' Lateral Velocity: 0.08 m/s E/E': 7.87 Aortic Valve Peak Velocity: 1.78 m/s Mean Velocity: 1.14 m/s Peak Gradient: 12.72 mmHg Mean Gradient: 6.16 mmHg AV Area (continuity): 2.2 cm^2 AV VTI: 37.95 cm AV DVI: 0.69 LVOT Peak Velocity: 1.25 m/s Peak Gradient: 6.28 mmHg Mean Velocity: 0.81 m/s Mean Gradient: 3.12 mmHg LVOT Diameter: 2.01 cm LVOT VTI: 26.32 cm LVOT Area: 3.17 cm^2 LVOT SV:83.47 ml LVOT CO: 6.51 l/min LVOT CI: 3.27 l/min/m^2 Procedure Note Interface, External Ris In - 10/24/2020 10:53 AM NITRO WORKER Transthoracic Echocardiography Report (TTE) Demographics Patient Name FRANCO RAMÍREZ Date of Study 10/24/2020 KEREN Gend er Female Visit Number [id number] Race Unknown Room Number 1011 Number Date of 1950 Refe mildred Arreagarthur Albina hylton Age 70 year(s) Sono mauricio Morales, [facility] [place], [facility] Sheila Inte rpreting Albina Jernigan MD Fellow Zia Villalobos MD Procedure Type of Study TTE procedure:2DECHO W DOPPLE R(CW/PW/COLOR) (Routine) Indications:Suspected cardiac source of emboli. Clinical History CIRRHOSIS;OBESITY;SOB;ABD PAIN;STROKE. Contrast Medium: Bubble Study. Height: 66 inches Weight: 89.36 kg (197 lbs) BSA: 1.99 m^2 BMI: 31.8 kg/m^2 HR: 78 bpm BP: 121/58 mmHg Summary IV saline contrast injection was negati ve for a PFO (patent foramen ovale) at rest and post Valsalva. IV saline co ntrast with delayed imaging demonstrates intra pulmonic shunting. A negative IV agitated saline study madrigal s not definitively rule out a PFO in situations of poor patient Valsalva effort (and high LA pressure), excessive competitive IVC venous flow n ot visible on TTE and with tiny defects. TTE and LJ may be complementa ry for inconclusive studies when PFO detection is clinically relevant. P FO's are a normal variant finding in at least 30% of individuals. Signature Findings Rhythm/BP Regular sinus rh ythm during the exam. Left Ventricle The LV endocardi um is adequately visualized. The left ventric le is chamber size (by vol index) is normal (male - LVED vol - 34-74ml/m2). Normal LV wall t hickness. All of the LV se gments contract normally . LVEF by Mendoza' s method of disk assessment is normal (55-60%) . LV diastolic fun ction is indeterminate. Left Atrium LA is well visua lized. LA size is sever steph enlarged (>48 ml/m2) . Right Ventricle The right ventri cular chamber size and systolic function are wit hin normal limits. Right Atrium RA size is jada l. Atrial Septum IV saline contra st injection was negative for a PFO (patent foramen ovale) at rest and post Valsalva. IV saline contra st with delayed imaging demonstrates int ra pulmonic shunting. A negative IV ag itated saline study does not definitively rul e out a PFO in situations of poor patient Valsalva effort (and high LA pressure), excessive compet itive IVC venous flow not visible on TTE and with tiny defects. TTE and LJ may be complementary fo r inconclusive studies when PFO detection is cli nically relevant. PFO's are a normal variant f inding in at least 30% of individuals. Aortic Valve Normal AoV struc ture. There is no aort ic stenosis. There is no aort ic regurgitation. Mitral Valve Normal MV struct ure. Mild mitral regu rgitation. Tricuspid Valve TV structure is normal. A trace of tricu spid regurgitation. Estimated peak s ystolic PA pressure is cannot be determined due t o inadequate TR velocity signal . Pulmonic Valve Normal PV struct ure and function by limited views and Doppler. Aorta Aortic root size (SInus of Valsalva diameter) is normal . Proximal ascendi ng aorta size is normal . Pericardium A small pericard ial effusion is present . IVC/SVC/PA/PV/Pleural The estimated RA pressure by IVC dynamics 5-10mmHg . Chambers/Structures Left Atrium LA Volume: 98.78 ml LA Area: 26.38 cm^2 LA Vol. Index: 50 ml/m^2 Left Ventricle LVIDd: 5.35 cm LVEDV:153.66 ml LVIDs: 3.09 cm LV Septum Diastolic: 1.07 cm LV PW Diastolic: 1.1 cm LV FS: 42.2 % LVEDV Mendoza's:102.97 ml LVESV Mendoza's:43.02 ml LVEDVI: 52 ml/m^2 LVEF Mendoza's: 58.2 % LVESVI: 22 ml/m^2 LVOT Diameter: 2.01 cm Right Ventricle RV Diast Dim.: 4.01 cm TAPSE: 2.42 cm RVOT VTI: 25.46 cm Aorta Ao Root S of Stefanie.: 2.96 cm Ascending Aorta: 3.21 cm Doppler/Quantitative Measurements Mitral Valve MV Peak E-Wave: 0.65 m/s MV Peak A-Wave: 0.93 m/s E/A Ratio: 0.69 Mean Velocity: 0.66 m/s Peak Gradient: 1.67 mmHg Mean Gradient: 2.01 mmHg Deceleration Time: 217 msec Area (continuity): 3.17 cm^2 PISA Radius: 0.61 cm MR Velocity: 5.31 m/s MR VTI: 176.89 cm MV EROA (PISA): 2.34 cm^2 MV Travis. Peak: 1.13 m/s MV VTI: 26.32 cm Tissue Doppler E' Lateral Velocity: 0.08 m/s E/E': 7.87 Aortic Valve Peak Velocity: 1.78 m/s Mean Velocity: 1.14 m/s Peak Gradient: 12.72 mmHg Mean Gradient: 6.16 mmHg AV Area (continuity): 2.2 cm^2 AV VTI: 37.95 cm AV DVI: 0.69 LVOT Peak Velocity: 1.25 m/s Pea k Gradient: 6.28 mmHg Mean Velocity: 0.81 m/s Noris n Gradient: 3.12 mmHg LVOT Diameter: 2.01 cm LVO T VTI: 26.32 cm LVOT Area: 3.17 cm^2 LVO T SV:83.47 ml LVOT CO: 6.51 l/min LVO T CI: 3.27 l/min/m^2 Performing Organization Address City/State/Zipcode Phone Number [facility] Hemoglobin A1c (10/24/2020 5:29 AM NITRO WORKER) [facility] nature Hemoglobin A1C 4.4 4.3 - 6.1 % [facility] Specimen Blood Performing Organization Address [facility] Phone Number [facility] [address] [place] [address] [place] Lipid panel (10/24/2020 5:29 AM NITRO WORKER) Pathologist Sig nature Triglycerides 58 mg/dL [facility] Cholesterol 135 mg/dL [facility] [place] HDL 36 mg/dL [facility] [place] LDL Calculated 87 mg/dL [facility] [place] Specimen Blood Narrative Performed At Triglyceride Reference Range: [facility] Low Risk <150 Borderline 150-199 High Risk 200-499 Very High Risk >=500 Cholesterol Reference Range: Low Risk <200 Borderline 200-239 High Risk >240 HDL Cholesterol Reference Range: Low Risk >=60 High Risk <40 LDL Cholesterol Reference Range: Optimal <100 Near Optimal 100-129 Borderline 130-159 High 160-189 Very High >=190 Clinical Evaluator ID - PIAYA L Performing Organization Address [facility] Cent[facility]ode Phone Number [facility] [address] [place] [address] [place] CTA carotid (10/23/2020 11:44 PM NITRO WORKER) Specimen Narrative Performed At FINAL REPORT [facility] EXAM: CT, CT Angio, Brain. CT Carotid Angio CLINICAL HISTORY: Neuro deficit, acute, stroke suspected COMPARISON: Noncontrast head CT 10/23/2020 , 3:15 PM. TECHNIQUE: Noncontrast head CT was perfo rmed. CT angiogram of the head and neck was performed with intrave nous contrast. MIP and volume rendered reformats were obtained. This e xam was performed according to our departmental dose optimization pr ogram which includes automated exposure control, adjustment o f the mA and/or kV according to patient's size and/or use of iterativ e reconstructive technique. Stenosis evaluation reported in complian ce with NASCET criteria. FINDINGS: Noncontrast CT head: There are mild whit e matter microvascular ischemic changes. There is a chronic lac unar infarct in the left caudate head. There is low-attenuation i n the left splenium of the corpus callosum and to a lesser extent t he left occipital lobe consistent with an evolving acute SOLID TIRE TUBER MACHINE OPERATOR te rritory infarct. There is no acute intracranial hemorrhage, extra-axi al fluid collection, mass effect, herniation or hydrocephalus. The basal cisterns are patent. There are bilateral lens replacements. The visualized paranasal sinuses and tympanomastoid cavities are clear. The skull base and calvarium are intact. CTA head: There are mild atherosclerotic calcifications of the bilateral carotid siphons. 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 There is good flow related enhancement of the bilatera l anterior, bilateral middle and right posterior cerebral arteries an d within the basilar artery. The intracranial and skull base internal carotid arteries as well as the vertebral arteries demonstrate jada l flow-related enhancement. There is no aneurysm. CTA neck: The visualized aortic arch and great vessel origins are unremarkable except for mild calcific at herosclerosis. There is good flow related enhancement o f the bilateral common and internal carotid arteries. There are ath eromatous changes at the left carotid bifurcation resulting in mild sh ort segment stenosis of the left proximal cervical ICA from its orig in (23%). There is mild short segment stenosis of the right proximal c ervical ICA (18%). The vertebral arteries are well visualized. There is no vessel occlusion or hemodynamically significant stenosis by NASCET criteria. There is diffuse interlobular septal thi ckening in the visualized lungs which may represent pulmonary inte rstitial edema. IMPRESSION: Noncontrast CT head: Mild white matter microvascular ischemic changes. Chronic left caudate head lacunar infarct. Evolving acute left SOLID TIRE TUBER MACHINE OPERATOR territory infarc t. No acute intracranial hemorrhage or mass effect. CTA head: Occlusion of the P2 segment of the left SOLID TIRE TUBER MACHINE OPERATOR. CTA neck: Mild short segment stenoses of the bilat eral proximal cervical ICAs. No vessel occlusion or hemodynamically s ignificant stenosis by NASCET criteria. Pulmonary findings which may represent p ulmonary interstitial edema. A chest radiograph the helpful for furth er evaluation. Signed: Amy Vera MD Report Verified Date/Time: 10/24/2020 00:46:37 Procedure Note Interface, External Ris In - 10/24/2020 12:48 AM NITRO WORKER FINAL REPORT EXAM: CT, CT Angio, Brain. CT Carotid A ngio CLINICAL HISTORY: Neuro deficit, acute, stroke suspected COMPARISON: Noncontrast head CT 10/23/2020 , 3:15 PM. TECHNIQUE: Noncontrast head CT was perfo rmed. CT angiogram of the head and neck was performed with intrave nous contrast. MIP and volume rendered reformats were obtained. This e xam was performed according to our departmental dose optimization pr ogram which includes automated exposure control, adjustment o f the mA and/or kV according to patient's size and/or use of iterativ e reconstructive technique. Stenosis evaluation reported in complian ce with NASCET criteria. FINDINGS: Noncontrast CT head: There are mild whit e matter microvascular ischemic changes. There is a chronic lac unar infarct in the left caudate head. There is low-attenuation i n the left splenium of the corpus callosum and to a lesser extent t he left occipital lobe consistent with an evolving acute SOLID TIRE TUBER MACHINE OPERATOR te rritory infarct. There is no acute intracranial hemorrhage, extra-axi al fluid collection, mass effect, herniation or hydrocephalus. The basal cisterns are patent. There are bilateral lens replacements. The visualized paranasal sinuses and tympanomastoid cavities are clear. The skull base and calvarium are intact. CTA head: There are mild atherosclerotic calcifications of the bilateral carotid siphons. 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 There is good flow related enhancement of the bilatera l anterior, bilateral middle and right posterior cerebral arteries an d within the basilar artery. The intracranial and skull base internal carotid arteries as well as the vertebral arteries demonstrate jada l flow-related enhancement. There is no aneurysm. CTA neck: The visualized aortic arch and great vessel origins are unremarkable except for mild calcific at herosclerosis. There is good flow related enhancement o f the bilateral common and internal carotid arteries. There are ath eromatous changes at the left carotid bifurcation resulting in mild sh ort segment stenosis of the left proximal cervical ICA from its orig in (23%). There is mild short segment stenosis of the right proximal c ervical ICA (18%). The vertebral arteries are well visualized. There is no vessel occlusion or hemodynamically significant stenosis by NASCET criteria. There is diffuse interlobular septal thi ckening in the visualized lungs which may represent pulmonary inte rstitial edema. IMPRESSION: Noncontrast CT head: Mild white matter microvascular ischemic changes. Chronic left caudate head lacunar infarct. Evolving acute left SOLID TIRE TUBER MACHINE OPERATOR territory infarc t. No acute intracranial hemorrhage or mass effect. CTA head: Occlusion of the P2 segment of the left SOLID TIRE TUBER MACHINE OPERATOR. CTA neck: Mild short segment stenoses of the bilat eral proximal cervical ICAs. No vessel occlusion or hemodynamically s ignificant stenosis by NASCET criteria. Pulmonary findings which may represent p ulmonary interstitial edema. A chest radiograph the helpful for furth er evaluation. Signed: Amy Vera MD Report Verified Date/Time: 10/24/2020 0 0:46:37 Performing Organization Address City/State/Zipcode Phone Number [employer] CTA brain (10/23/2020 11:44 PM NITRO WORKER) Specimen Narrative Performed At FINAL REPORT [employer] EXAM: CT, CT Angio, Brain. CT Carotid Angio CLINICAL HISTORY: Neuro deficit, acute, stroke suspected COMPARISON: Noncontrast head CT 10/23/2020 , 3:15 PM. TECHNIQUE: Noncontrast head CT was perfo rmed. CT angiogram of the head and neck was performed with intrave nous contrast. MIP and volume rendered reformats were obtained. This e xam was performed according to our departmental dose optimization pr ogram which includes automated exposure control, adjustment o f the mA and/or kV according to patient's size and/or use of iterativ e reconstructive technique. Stenosis evaluation reported in complian ce with NASCET criteria. FINDINGS: Noncontrast CT head: There are mild whit e matter microvascular ischemic changes. There is a chronic lac unar infarct in the left caudate head. There is low-attenuation i n the left splenium of the corpus callosum and to a lesser extent t he left occipital lobe consistent with an evolving acute SOLID TI[employer] TUBER MACHINE OPERATOR te rritory infarct. There is no acute intracranial hemorrhage, extra-axi al fluid collection, mass effect, herniation or hydrocephalus. The basal cisterns are patent. There are bilateral lens replacements. The visualized paranasal sinuses and tympanomastoid cavities are clear. The skull base and calvarium are intact. CTA head: There are mild atherosclerotic calcifications of the bilateral carotid siphons. 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 There is good flow related enhancement of the bilatera l anterior, bilateral middle and right posterior cerebral arteries an d within the basilar artery. The intracranial and skull base internal carotid arteries as well as the vertebral arteries demonstrate jada l flow-related enhancement. There is no aneurysm. CTA neck: The visualized aortic arch and great vessel origins are unremarkable except for mild calcific at herosclerosis. There is good flow related enhancement o f the bilateral common and internal carotid arteries. There are ath eromatous changes at the left carotid bifurcation resulting in mild sh ort segment stenosis of the left proximal cervical ICA from its orig in (23%). There is mild short segment stenosis of the right proximal c ervical ICA (18%). The vertebral arteries are well visualized. There is no vessel occlusion or hemodynamically significant stenosis by NASCET criteria. There is diffuse interlobular septal thi ckening in the visualized lungs which may represent pulmonary inte rstitial edema. IMPRESSION: Noncontrast CT head: Mild white matter microvascular ischemic changes. Chronic left caudate head lacunar infarct. Evolving acute left SOLID TIRE TUBER MACHINE OPERATOR territory infarc t. No acute intracranial hemorrhage or mass effect. CTA head: Occlusion of the P2 segment of the left SOLID TIRE TUBER MACHINE OPERATOR. CTA neck: Mild short segment stenoses of the bilat eral proximal cervical ICAs. No vessel occlusion or hemodynamically s ignificant stenosis by NASCET criteria. Pulmonary findings which may represent p ulmonary interstitial edema. A chest radiograph the helpful for furth er evaluation. Signed: Amy Vera MD Report Verified Date/Time: 10/24/2020 00:46:37 Procedure Note Interface, External Ris In - 10/24/2020 12:48 AM NITRO WORKER FINAL REPORT EXAM: CT, CT Angio, Brain. CT Carotid A ngio CLINICAL HISTORY: Neuro deficit, acute, stroke suspected COMPARISON: Noncontrast head CT 10/23/2020 , 3:15 PM. TECHNIQUE: Noncontrast head CT was perfo rmed. CT angiogram of the head and neck was performed with intrave nous contrast. MIP and volume rendered reformats were obtained. This e xam was performed according to our departmental dose optimization pr ogram which includes automated exposure control, adjustment o f the mA and/or kV according to patient's size and/or use of iterativ e reconstructive technique. Stenosis evaluation reported in complian ce with NASCET criteria. FINDINGS: Noncontrast CT head: There are mild whit e matter microvascular ischemic changes. There is a chronic lac unar infarct in the left caudate head. There is low-attenuation i n the left splenium of the corpus callosum and to a lesser extent t he left occipital lobe consistent with an evolving acute SOLID TIRE TUBER MACHINE OPERATOR te rritory infarct. There is no acute intracranial hemorrhage, extra-axi al fluid collection, mass effect, herniation or hydrocephalus. The basal cisterns are patent. There are bilateral lens replacements. The visualized paranasal sinuses and tympanomastoid cavities are clear. The skull base and calvarium are intact. CTA head: There are mild atherosclerotic calcifications of the bilateral carotid siphons. 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 There is good flow related enhancement of the bilatera l anterior, bilateral middle and right posterior cerebral arteries an d within the basilar artery. The intracranial and skull base internal carotid arteries as well as the vertebral arteries demonstrate jada l flow-related enhancement. There is no aneurysm. CTA neck: The visualized aortic arch and great vessel origins are unremarkable except for mild calcific at herosclerosis. There is good flow related enhancement o f the bilateral common and internal carotid arteries. There are ath eromatous changes at the left carotid bifurcation resulting in mild sh ort segment stenosis of the left proximal cervical ICA from its orig in (23%). There is mild short segment stenosis of the right proximal c ervical ICA (18%). The vertebral arteries are well visualized. There is no vessel occlusion or hemodynamically significant stenosis by NASCET criteria. There is diffuse interlobular septal thi ckening in the visualized lungs which may represent pulmonary inte rstitial edema. IMPRESSION: Noncontrast CT head: Mild white matter microvascular ischemic changes. Chronic left caudate head lacunar infarct. Evolving acute left SOLID TIRE TUBER MACHINE OPERATOR territory infarc t. No acute intracranial hemorrhage or mass effect. CTA head: Occlusion of the P2 segment of the left SOLID TIRE TUBER MACHINE OPERATOR. CTA neck: Mild short segment stenoses of the bilat eral proximal cervical ICAs. No vessel occlusion or hemodynamically s ignificant stenosis by NASCET criteria. Pulmonary findings which may represent p ulmonary interstitial edema. A chest radiograph the helpful for furth er evaluation. Signed: Amy Vera MD Report Verified Date/Time: 10/24/2020 0 0:46:37 Performing Organization Address City/[facility]/Zipcode Phone Number [facility] C-Reactive Protein (10/23/2020 7:45 PM NITRO WORKER) Pathologist Sig nature CRP 0.67 (H) 0.00 - 0.50 mg/dL [facility] Specimen Blood Narrative Performed At Clinical Evaluator ID - DB [facility] Performing Organization Address [facility] Phone Number [address] [address] CENTER RPR (10/23/2020 7:45 PM NITRO WORKER) Pathologist Sig nature RPR Nonreactive Nonreactive [facility] Specimen Blood Performing Organization Address [facility] Phone Number [address] [phone] [place] MR brain without IV contrast (10/23/2020 6:27 PM NITRO WORKER) Specimen Narrative Performed At FINAL REPORT [place] MR, BRAIN, WITHOUT CONTRAST INDICATION: Neuro deficit, acute, persis tent or progressing TECHNIQUE: Multiplanar, multisequence MR imaging of the brain without intravenous contrast. COMPARISON: CT head 10/23/2020 FINDINGS: Intracranial: There is restricted diffus ion and FLAIR hyperintensity within the mesial left temporal and occi pital lobes as well as the left splenium of the corpus callosum, co nsistent with acute SOLID TIRE TUBER MACHINE OPERATOR territory infarct. No acute intracranial hemorrhage. No mass effect. No hydrocephalus. Visualized intracrania l flow voids are of normal course and caliber. Generalized cerebral atrophy with ex vac uo dilatation of the ventricular system proportionate to sulc i. Scattered foci of T2 prolongation within the periventricular and subcortical white matter are a nonspecific finding commonly attri buted to chronic small vessel ischemic disease. Sinuses: No evidence of sinusitis. Masto ids are clear. Orbits: Globes are intact. Calvarium \\T\\ scalp: Unremarkable. IMPRESSION: Acute nonhemorrhagic left SOLID TIRE TUBER MACHINE OPERATOR territory infarct involving the mesial temporo-occipital lobe and left splenium of the corpus callosum. Signed: Shefali Marcos MD Report Verified Date/Time: 10/23/2020 18:51:36 Procedure Note Interface, External Ris In - 10/23/2020 6:53 PM NITRO WORKER FINAL REPORT MR, BRAIN, WITHOUT CONTRAST INDICATION: Neuro deficit, acute, persis tent or progressing TECHNIQUE: Multiplanar, multisequence MR imaging of the brain without intravenous contrast. COMPARISON: CT head 10/23/2020 FINDINGS: Intracranial: There is restricted diffus ion and FLAIR hyperintensity within the mesial left temporal and occi pital lobes as well as the left splenium of the corpus callosum, co nsistent with acute SOLID TIRE TUBER MACHINE OPERATOR territory infarct. No acute intracranial hemorrhage. No mass effect. No hydrocephalus. Visualized intracrania l flow voids are of normal course and caliber. Generalized cerebral atrophy with ex vac uo dilatation of the ventricular system proportionate to sulc i. Scattered foci of T2 prolongation within the periventricular and subcortical white matter are a nonspecific finding commonly attri buted to chronic small vessel ischemic disease. Sinuses: No evidence of sinusitis. Masto ids are clear. Orbits: Globes are intact. Calvarium \\T\\ scalp: Unremarkable. IMPRESSION: Acute nonhemorrhagic left SOLID TIRE TUBER MACHINE OPERATOR territory infarct involving the mesial temporo-occipital lobe and left splenium of the corpus callosum. Signed: Shefali Marcos MD Report Verified Date/Time: 10/23/2020 1 8:51:36 Performing Organization Address City/State/Zipcode Phone Number [employer] CT brain/stroke (10/23/2020 3:20 PM NITRO WORKER) Specimen Narrative Performed At FINAL REPORT [employer] CT, BRAIN/STROKE PROTOCOL INDICATION: TIA, initial exam Right visual field deficit TECHNIQUE: Noncontrast axial imaging was obtained from the vertex to the skull base. Axial images were recons tructed using a bone algorithm. DOSE REDUCTION: Dose modulation, iterati ve reconstruction, and/or weight-based adjustment of the mA/kV was utilized to reduce the radiation dose to as low as reasonably a chievable. COMPARISON: CT 11/07/2015 FINDINGS: Intracranial: Interval progression of ge neralized cerebral atrophy and chronic white matter microvascular i schemic changes. There is a small region of loss nguyen-white differen tiation within the mesial left occipital lobe suspicious for acute infarct. No intracranial hemorrhage or abnormal extra-axial colle ction. No mass effect. No hydrocephalus. Osseous structures: No fracture. No susp icious lesion. Paranasal sinuses and mastoid air cells: No evidence of sinusitis. Mastoids are clear. Orbital contents: Globes are intact. IMPRESSION: 1.Loss of nguyen-white differentiation in the mesial left occipital lobe is suspicious for acute left SOLID TIRE TUBER MACHINE OPERATOR te rritory infarct. 2.No acute intracranial hemorrhage. 3.Generalized parenchymal volume loss an d chronic microvascular changes, progressed since 2016. The findings were discussed with Dr. SHUN MICHAUD MD on 10/23/2020 3:34 PM. Signed: Shefali Marcos MD Report Verified Date/Time: 10/23/2020 15:34:36 Procedure Note Interface, External Ris In - 10/23/2020 3:36 PM NITRO WORKER FINAL REPORT CT, BRAIN/STROKE PROTOCOL INDICATION: TIA, initial exam Right visual field deficit TECHNIQUE: Noncontrast axial imaging was obtained from the vertex to the skull base. Axial images were recons tructed using a bone algorithm. DOSE REDUCTION: Dose modulation, iterati ve reconstruction, and/or weight-based adjustment of the mA/kV was utilized to reduce the radiation dose to as low as reasonably a chievable. COMPARISON: CT 11/07/2015 FINDINGS: Intracranial: Interval progression of ge neralized cerebral atrophy and chronic white matter microvascular i schemic changes. There is a small region of loss nguyen-white differen tiation within the mesial left occipital lobe suspicious for acute infarct. No intracranial hemorrhage or abnormal extra-axial colle ction. No mass effect. No hydrocephalus. Osseous structures: No fracture. No susp icious lesion. Paranasal sinuses and mastoid air cells: No evidence of sinusitis. Mastoids are clear. Orbital contents: Globes are intact. IMPRESSION: 1.Loss of nguyen-white differentiation in the mesial left occipital lobe is suspicious for acute left SOLID TIRE TUBER MACHINE OPERATOR te rritory infarct. 2.No acute intracranial hemorrhage. 3.Generalized parenchymal volume loss an d chronic microvascular changes, progressed since 2016. The findings were discussed with Dr. SHUN MICHAUD MD on 10/23/2020 3:34 PM. Signed: Shefali Marcos MD Report Verified Date/Time: 10/23/2020 1 5:34:36 Performing Organization Address City/[facility] Phone Number [facility] RIS PT/aPTT (10/23/2020 2:56 PM NITRO WORKER) Pathologist Sig nature Protime 16.0 (H) 11.9 - 14.2 seconds [facility] INR 1.33 <=5.90 [facility] PTT 34.4 22.5 - 36.0 seconds [facility] Specimen Blood Narrative Performed At Effective 03/14/2019: PT Reference Range [facility] Change New: 11.9-14.2 Previous: 11.7-14.7 RECOMMENDED COUMADIN/WARFARIN INR THERAPY RANGES STANDARD DOSE: 2.0-3.0 Includes: PROPHYLAXIS for venous thrombosis, systemic embolization; TREATMENT for venous thrombosis and/or pulmonary embolus. HIGH RISK: Target INR is 2.5-3.5 for patients wiht mechanical heart valves. Performing Organization Address City/State/Zipcode Phone Number [facility] [address] [place] [address] CENTER Ammonia (09/27/2020 10:21 AM NITRO WORKER) Pathologist Sig nature Ammonia 36 18 - 72 mol/L [facility] Specimen Blood Narrative Performed At Clinical Evaluator ID - DB [facility] Performing Organization Address City/[facility]/Zipcode Phone Number [facility] [address] [place] [address] CENTER CBC with platelet count + automated diff (12/18/2019 11:07 AM NITRO WORKER) Pathologist Sig nature WBC 4.2 3.8 - 10.8 [facility] Thousand/uL RBC 3.05 (L) 3.80 - 5.10 [facility] Million/uL Hemoglobin 9.2 (L) 11.7 - 15.5 g/dL [facility] Hematocrit 28.2 (L) 35.0 - 45.0 % [facility] MCV 92.5 80.0 - 100.0 fL [facility] MCH 30.2 27.0 - 33.0 pg [facility] MCHC 32.6 32.0 - 36.0 g/dL [facility] RDW 14.7 11.0 - 15.0 % [facility] Platelets 67 (L) 140 - 400 [facility] Comment: Thousand/uL Review of the peripheral smear reveals decreased numbers of platelets. MPV 10.7 7.5 - 12.5 fL [facility] # Neutros 2,692 1,500 - 7,800 [facility] cells/uL # Lymphs 895 850 - 3,900 [facility] cells/uL # Monos 437 200 - 950 [facility] cells/uL # Eos 139 15 - 500 cells/uL [facility] # Baso 38 0 - 200 cells/uL [facility] % Neutros 64.1 % [facility] % Lymphs 21.3 % [facility] % Monos 10.4 % [facility] % Eos 3.3 % [facility] % Baso 0.9 % [facility] Specimen Blood Narrative Performed At FASTING:YES [facility] FASTING: YES Resulting Agency Comment Performing Organization Information: Site ID: [id number] Name: [facility] Address: [address] [place] [id number] Director: Baudilio Taylor Performing Organization Address City/State/Zipcode Phone Number [facility] [address] [place] [address] [facility] after 12/09/2019 Advance Directives For more information, please contact: [phone] Type Date Recorded 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
--- OUTSIDE RECORDS SUMMARY | 2020-12-09 10:28 | XMS REPORT | Continuity of Care Document ---
:1950 Author Organization [facility] t Address [address] [place] [address] Care Team Providers Name Role Phone Asked, Pcp Primary Care Physician Unavailable Shefali Johnson DO Attending Clinician Arielle Yost MD Attending Clinician Anthony Estrada MD, Ondina Attending Clinician [phone] Gregg GRIFFITH Attending Clinician Unavailable SHEFALI JOHNSON Attending Clinician Unavailable Jaswant WILLSON Attending Clinician Merchant WILLSON Attending Clinician JASWANT Attending Clinician Unavailable Jacinta Gallardo MD Attending Clinician JACINTA GALLARDO Attending Clinician Unavailable Kwabena Casiano Attending Clinician Unavailable Bairon James MD Attending Clinician Bianka Aguayo Attending Clinician BAIRON JAMES Attending Clinician Unavailable Kalin MEADE Attending Clinician Unavailable Bryan Song RN Attending Clinician Unavailable Maru Laird NP Attending Clinician Rajat GRIFFITH Attending Clinician Unavailable Amos MEADE Attending Clinician Unavailable Christy Boyermillie Attending Clinician Unavailable Shefali Duran Attending Clinician Lizandro WALTON Attending Clinician Unavailable JABIER CLEMENTS Attending Clinician Unavailable ARIELLE YOST Admitting Clinician Unavailable Admitting Clinician Unavailable PATRICIA SORIA Admitting Clinician Unavailable BAIRON JAMES Admitting Clinician Unavailable Payers Payer Name Policy Type Policy Effective Date Expiration Date Sour ce Number MEDICAREMEDICARE A [id number] [id number] 2014[facility]P 00:00[facility]00 [facility] Problems Condition Condition Condition Status Onset Resolution Last Treating Co mments Source Name Details Category Date Date Treatment Clinician Date Decompensa Decompensa Disease Active [facility] jacquelyn liver jacquelyn liver 2-10 [facility] - disease disease 00:00: Medical 00 [place] NAFLD NAFLD Disease Active [facility] (nonalcoho (nonalcoho 2-10 [place] - lic fatty lic fatty 00:00: Medi nathan liver liver 00 Center disease) disease) JOSE MANUEL (acute JOSE MANUEL (acute Disease Active [facility] kidney kidney 2-10 [facility] - injury) injury) 00:00: Medical 00 [place] Peripheral Peripheral Disease Active [facility] edema edema 2-10 [facility] - 00:00: Medical 00 [place] Acute Acute Disease Active [facility] ischemic ischemic 1-08 [facility] - left LOCATOR left LOCATOR 00:00: Medica l stroke stroke 00 Center Visual Visual Disease Active [facility] field cut field cut 1-07 [facility] - 00:00: Medical 00 [place] Portal Portal Disease Active [facility] vein vein 5-01 [facility] - thrombosis thrombosis 00:00: Me dical 00 [place] Iron Iron Disease Active [facility] deficiency deficiency 5-01 [place] - anemia anemia 00:00: Medical secondary secondary 00 Cent er to to inadequate inadequate dietary dietary iron iron intake intake SOB SOB Disease Active 2018-[address] [facility] (shortness (shortness 2-10 [place] - of breath) of breath) 00:00: Me dical 00 [place] Generalize Generalize Disease Active 2018-[address] d d 1-25 [facility] - abdominal abdominal 00:00: [facility] nathan pain pain 00 Center Community Community Disease Active 2018-[address] [facility] acquired acquired 25 [facility] - bacterial bacterial 00:00: [facility] pneumonia pneumonia 00 Cent er Abnormal Abnormal Disease Active [facility] magnetic magnetic 7-06 [facility] - resonance resonance 00:00: [facility] imaging of imaging of 00 Ce nter chest chest Postmenopa Postmenopa Disease Active H aleah usal usal 5-10 [facility] bleeding bleeding 00:00: st 00 Screening Screening Disease Active [facility] for cancer for cancer 1-10 [place] - 00:00: Medical 00 [place] Fatty Fatty Disease Active [facility] St liver liver - [facility] - disease, disease, 00:00: Medica l nonalcohol nonalcohol 00 Ce nter ic ic Acute Acute Disease Active [facility] St kidney kidney 11-08 [facility] - injury injury 00:00: Medical [address] [place] [address] Acute Acute Disease Active [facility] St confusion confusion 11-07 [facility] s - 00:00: Medical 00 [place] Cirrhosis Cirrhosis Disease Active Last [facility] St of liver of liver -20 Assessmen [place] es - without without 00:00: t & Plan: Medic al ascites ascites 00 Cirrhosis Cente r with decompens ation symptoms (ascites, varices) diagnosed via CT imaging in September 2015. Etiology unknown at this time. ethnicity and obesity are risk factors for cirrhosis due to non-alcoh olic fatty liver disease. Full hepatic work workup and MRI ordered today to screen for viral, autoimmun e and genetic causes of liver disease. Ascites Ascites Disease Active Last [facility] St 1-20 Ass[facility]men [facility] - 00:00: t & Plan: Medical Ascites Center for diagnosed with admission to outside hospital in August 2015 and September 2015. Treated with lasix 20 mg and spironola ctone 100 mg daily. Mild edema in lower extremity today. No history of Paracente sis. Discussed importanc e of complianc e with medicatio ns and following a low sodium diet restricte d to less than 2000 mg sodium per day. Low salt recipes and education al informati on provided. Immunity Immunity Disease Active [facility] status status 1-20 [facility] [place] - testing testing 00:00: t & Plan: Medic al 00 Serologie Center s for HAV, HBV and HCV ordered today to screen for prior exposure to HBV or HCV and vaccinati on for HAV and HBV. Portal Portal Disease Active [facility] hypertensi hypertensi -20 Assessmen [facility] - on on 00:00: t & Plan: Medical CT scan Center in September 2015 revealed large recannuli zed umbilical vein and numerous abdominal and pelvic varices. Treated with propranol ol 60 mg per day and diuretics . Obesity Obesity Disease [facility] t & Plan: Medical BMI today Center 29.86 which places her at risk for fatty liver. Stressed the importanc e of a 10% weight loss over the next 6 months with low carbohydr ate diet and increased exercise. Education al materials and low calorie recipes provided. Fatigue Fatigue Disease Active [facility] 11[facility] t & Plan: Medical Patient Center complains of increasin g fatigue over the past few months. TSH ordered to screen for hypothyro id state. Hepatic Hepatic Disease Active [facility] encephalop encephalop 11-05 [facility] - athy athy 00:00: t & Plan: Medical Symptoms Center of increased confusion and memory loss over the past 2 months was reported by daughter and . Tremor but no definite asterixis today. Xifaxan 550 mg BID prescribe d. Family educated regarding the importanc e of taking the medicatio n to reduce ammonia in the bloodstre am and that the ammonia causes confusion . Allergies, Adverse Reactions, Alerts Allergy Allergy Status Severity Reaction(s) Onset Inactive Treating Comm ents Source Name Type Date Date Clinician Ciproflo Propensi Active Rash [place] xacin ty to 02-22 [facility] adverse 00:00: st reaction 00 s to drug Penicill Propensi Active Hives [place] ins ty to 02-22 [facility] adverse 00:00: st reaction 00 s to drug Ciproflo Drug Active Other (See Redness [facility] xacin Allergy Comments) 12-08 at [facility] - 00:00: injection Medical 00 site Center Penicill Propensi Active Rash Other [facility] ins ty to 20 reaction( [facility] - adverse 00:00: s): Hives Medica l reaction 00 Center s Family History Family Member Diagnosis Comments Start Date Stop Date Source Natural father No Known Problems Colten st[employer] Natural mother No Known Problems [place] Mata Social History Social Habit Start Date Stop Date Quantity Comments Source Sex Assigned At [facility] Ansari kes - [facility] Exposure to Not sure [facility] - SARS-CoV-2 (event) Medica [facility] Cigarettes smoked 2020-12-01 2020-12-[address] [facility] - current (pack per 00:00:00 00:00:00 Medical Center day) - Reported Cigarette 2020-12-01 2020-12-[address] [facility] - pack-years 00:00:00 00:00:00 [facility] Tobacco use and 2020-12-01 2020-12-[address] [place] - exposure 00:00:00 00:00:00 [facility] Alcohol intake 2020-12-01 2020-12-[address] [facility] - 00:00:00 00:00:00 non-drinker of Medical Ce ntpa alcohol (finding) Tobacco Comment 2017-03-17 2017-03-17 States she never [facility] - 00:00:00 00:00:00 really smoked. Medical Ce nter Alcohol Comment 2015-11-05 2015-11-05 social, last [facility] - 00:00:00 00:00:00 drink was Nov Medical A[facility] 2014 History of tobacco 1995-10-17 [facility] sm[facility] - use 00:00:00 [facility] Smoking Status Start Date Stop Date Source Former smoker 2020-12-01 00:00:00 2020-12-01 00:00:[address] [facility] Never smoker [place] Medications Ordered Filled Start Stop Current Ordering Indication Dosage Frequency Signature Comments Components Source Medication Medication Date Date Medication? Clinician (SIG) Name Name spironolact 2020- Yes Hyperkalemi 25mg QD Take 0.[address] one 2- 05-23 a tablets [facility]ukes - (ALDACTONE) 00:00: 23:59 (25 mg Med ical 50 MG 00 :00 total) by Center tablet mouth daily for 90 days. furosemide 2020- Yes Other 20mg QD Take [address] (LASIX) 20 - 05-23 ascites tablet (20 [facility] - MG tablet 00:00: 23:59 mg total) Me dical 00 :00 by mouth Center daily for 90 days. midodrine 2020- Yes 5mg [id number] Take [address] (PROAMATINE 2 05- [id number] tablet (5 [facility] - ) 5 MG 00:00: 23:59 3D mg total) Medic al tablet 00 :00 by mouth 3 Center (three) times daily for 90 days. aspirin 81 2021- Yes 81mg QD Take [address] MG chewable 10-25- tablet (81 L ukes - tablet 00:00: 23:59 mg total) Medic al 00 :00 by mouth Center daily. atorvastati 2020- No 80mg QD Take [address] n (LIPITOR) 10-24 tablet (80 L ukes - 80 MG 00:00: 00:00 mg total) Medica l tablet 00 :00 by mouth Center nightly. cephalexin 2019-10 No 500mg Q.5D Take [address] (KEFLEX) 2-09 27-19 capsule [facility]ukes - 500 MG 00:00: 23:59 (500 mg Medical capsule 00 :00 total) by Center mouth 2 (two) times daily for 7 days. rifAXIMin 2019-10 Yes Cirrhosis 550mg Q.5D Take [address] 550 mg Tab 0-16 of liver tablet Denise es - 00:00: with (550 mg Medical 00 ascites, total) by Center unspecified mouth 2 hepatic (two) cirrhosis times type (HCC) daily. lactulose 2019-10 Yes Hyperkalemi 20g Q.[id number] Take [address] (CHRONULAC) 0-16 a [id number] mLs (20 g [facility] - 10 gram/15 00:00: 3D total) by Me dical mL (15 mL) 00 mouth 3 Center solution (three) times daily. furosemide 2019-10- No Other 20mg QD Take [address] (LASIX) 20 0-16 02-22 ascites tablet (20 [facility] - MG tablet 00:00: 00:00 mg total) Me dical 00 :00 by mouth Center daily. spironolact 2019-10- No Hyperkalemi 50mg QD Take [address] [facility] one 0-16 02-22 a tablet (50 [facility] - (ALDACTONE) 00:00: 00:00 mg total) Medical 50 MG 00 :00 by mouth Center tablet daily. spironolact 2019- No Hyperkalemi 50mg QD Take [address] [facility] one 7-22 10-16 a tablet (50 [facility] - (ALDACTONE) 00:00: 00:00 mg total) Medical 50 MG 00 :00 by mouth Center tablet daily. lactulose No Hyperkalemi 20g Q.[id number] Take [address] (CHRONULAC) 1-30 10-16 a [id number] mLs (20 g [facility] - 10 gram/15 00:00: 00:00 3D total) by M edical mL (15 mL) 00 :00 mouth 3 Center solution (three) times daily. spironolact 2019- No Hyperkalemi 50mg QD Take [address] [facility] one 1-30 07-22 a tablet (50 [facility] - (ALDACTONE) 00:00: 00:00 mg total) Medical 50 MG 00 :00 by mouth Center tablet daily. furosemide 2019- No Other 40mg QD Take [address] (LASIX) 40 1-30 05-01 ascites tablet (40 [facility] - MG tablet 00:00: 00:00 mg total) Me dical 00 :00 by mouth Center daily. furosemide 2019- No 20mg QD Take [address] (LASIX) 20 1-23 10-16 by mouth Luke s - MG tablet 00:00: 00:00 daily. Medic al 00 :00 Center rifAXIMin 2019- No Cirrhosis 550mg Q.5D Take [address] 550 mg Tab 9-16 10-16 of liver tablet [place] - 00:00: 00:00 with (550 mg Medical 00 :00 ascites, total) by Center unspecified mouth 2 hepatic (two) cirrhosis times type (HCC) daily. spironolact Yes 100mg QD Take 100 [place] one 5-09 mg by [facility] (ALDACTONE) 10:23: mouth st 100 MG 21 daily. tablet propranolol Yes [place] (INDERAL 5-05 [facility] [place]) 60 MG 00:00: st 24 hr 00 capsule enoxaparin Yes [place] (LOVENOX) 5-05 [facility] 100 mg/mL 00:00: st syringe 00 lactulose Yes [place] (CHRONULAC) 4-21 [facility] 10 gram/15 00:00: st mL solution 00 XIFAXAN 550 Yes [place] mg tablet 4-14 [facility] 00:00: st 00 furosemide 2016- Yes [place] (LASIX) 20 3-13 [facility] mg tablet 00:00: st 00 Vital Signs Vital Name Observation Time Observation Value Comments Source Systolic blood 2020-12-08 11:33:00 107 mm[Hg] [facility] Diastolic blood 2020-12-08 11:33:00 54 mm[Hg] [facility] Heart rate 2020-12-08 11:33:00 71 /min [facility] Body temperature 2020-12-08 11:33:00 36.72 Cony [facility] Respiratory rate 2020-12-08 11:33:00 18 /min [facility] Oxygen saturation in 2020-12-08 11:33:00 100 /min [facility] Arterial blood by Medical Ce nter Pulse oximetry Body height 2020-11-26 13:22:00 167.6 cm [facility] Body weight 2020-11-26 13:22:00 99.791 kg [facility] BMI 2020-11-26 13:22:00 35.51 kg/m2 [facility] Procedures Procedure Date / Time Performing Clinician Source Performed HEPATIC FUNCTION PANEL 2020-12-08 05:36:00 [facility] PROTHROMBIN TIME/INR 2020-12-08 05:36:00 [facility] CALCIUM, IONIZED 2020-12-08 05:36:00 [facility] COMPREHENSIVE METABOLIC 2020-12-08 05:36:00 Gary [facility] MAGNESIUM 2020-12-08 05:36:00 [facility] 2020-12-08 05:36[facility] W/PLT COUNT & AUTO 2020-12-08 05:36:00 Gary [facility] CREATINE KINASE (CK) 2020-12-08 05:36:00 [facility]PLETE 2020-12-08 04:25:00 [facility] W/ MICROSCOPIC 2020-12-07 20:18:00 Jesse Vega [facility] SODIUM, RANDOM URINE 2020-12-07 20:18:00 Gary [facility] PROTEIN, RANDOM URINE 2020-12-07 20:18:00 Gary [facility] CREATININE, RANDOM URINE 2020-12-07 20:18:00 Gary [facility] HEPATIC FUNCTION PANEL 2020-12-07 04:55:00 Adrian Miller [facility] PROTHROMBIN TIME/INR 2020-12-07 04:55:00 Adrian Miller [facility] CALCIUM, IONIZED 2020-12-07 04:55:00 [facility] COMPREHENSIVE METABOLIC 2020-12-07 04:55:00 Gary [facility] MAGNESIUM 2020-12-07 04:55:00 Gary [facility] PHOSPHORUS 2020-12-07 04:55:00 Gary [facility] CBC W/PLT COUNT & AUTO 2020-12-07 04:55:00 Gary [facility] HEPATIC FUNCTION PANEL 2020-12-06 04:55:00 [place], [facility] CBC W/PLT COUNT & AUTO 2020-12-06 04:55:00 Yolanda Cancino [facility] COMPREHENSIVE METABOLIC 2020-12-06 04:55:00 [facility] 2020-12-06 04:55[facility] 2020-12-05 05:02:00 [facility] PROTHROMBIN TIME/INR 2020-12-05 05:02:00 [facility] 2020-12-05 05:02:00 [facility]ABOLIC 2020-12-05 05:02:00 [facility]UM 2020-12-05 05:02:00 [facility] PHOSPHORUS 2020-12-05 05:02:00 [facility] CBC W/PLT COUNT & AUTO 2020-12-05 05:02:00 [facility] B-TYPE NATRIURETIC FACTOR 2020-12-05 05:02:00 [facility] CALCIUM, IONIZED 2020-12-04 04:50:00 [facility] COMPREHENSIVE METABOLIC 2020-12-04 04:50:00 [facility] MAGNESIUM 2020-12-04 04:50:00 [facility] PHOSPHORUS 2020-12-04 04:50:00 [facility] CBC W/PLT COUNT & AUTO 2020-12-04 04:50:00 [facility] B-[facility] NATRIURETIC FACTOR 2020-12-04 04:50:00 [facility] BILIRUBIN, DIRECT 2020-12-04 04:50:00 [facility] 1 VIEW 2020-12-03 19:08:00 Gary [facility] PORTABLE/BEDSIDE Medical Center SARS-COV2/RT-PCR ([facility] & 2020-12-03 18:50:00 Melissa Yost [facility] - REF LABS) [facility] METABOLIC 2020-12-03 05:10:00 [facility] MAGNESIUM 2020-12-03 05:10:00 [facility] CBC W/PLT COUNT & AUTO 2020-12-03 05:10:00 [facility] BILIRUBIN, DIRECT 2020-12-02 04:46:[address] [facility] CALCIUM, IONIZED 2020-12-02 04:46:00 [facility] COMPREHENSIVE METABOLIC 2020-12-02 04:46:00 [facility] MAGNESIUM 2020-12-02 04:46:00 [facility] PHOSPHORUS 2020-12-02 04:46:00 [facility] CREATINE KINASE (CK) 2020-12-02 04:46:00 [facility] CBC W/PLT COUNT & AUTO 2020-12-02 04:46:00 [facility] US ABDOMEN LIMITED 2020-12-01 10:48:00 Melissa Yost [facility] METABOLIC 2020-12-01 04:57:00 Maisha [facility] MAGNESIUM 2020-12-01 04:57:00 Maisha [facility] PROTHROMBIN TIME/INR 2020-12-01 04:57:[address] [facility] CREATINE KINASE (CK) 2020-12-01 04:57:00 Jenna Cox [facility] CBC W/PLT COUNT & AUTO 2020-12-01 04:57:[address] [facility] PREPARE LEUKO-REDUCED RBC 2020-11-30 23:54:00 Melissa Yost [facility] COMPREHENSIVE METABOLIC 2020-11-30 05:08:00 Melissa Yost [facility] MAGNESIUM 2020-11-30 05:08:00 Maisha [facility] PROTHROMBIN TIME/INR 2020-11-30 05:08:[address] [facility] CBC W/PLT COUNT & AUTO 2020-11-30 05:08:00 Maisha [facility] - DIFFERENTIAL [facility] BASIC METABOLIC PANEL (7) 2020-11-29 23:28:00 Mahdi Marco Cárdenas [facility] CBC (HEMOGRAM ONLY) 2020-11-29 23:28:00 [facility] L[facility] XR ABDOMEN / KUB 1 VIEW 2020-11-29 22:03:00 Avi [facility] Lara [facility] POCT-GLUCOSE METER 2020-11-29 20:35:[address] [facility] TRANSFUSE LEUKO-REDUCED 2020-11-29 17:58:28 Maisha [facility] - RED BLOOD CELLS [facility] TYPE AND SCREEN, 2020-11-29 11:40:00 [place]hat [place]alex [facility] - AUTOMATED [facility] COMPREHENSIVE METABOLIC 2020-11-29 05:21:00 Maisha [facility] MAGNESIUM 2020-11-29 05:21:00 Maisha [facility] PROTHROMBIN TIME/INR 2020-11-29 05:21:[address] [facility] CBC W/PLT COUNT & AUTO 2020-11-29 05:21:00 Maisha [facility] DIFFERENTIAL [facility] PREPARE LEUKO-REDUCED RBC 2020-11-28 23:54:00 Zia Dan [facility] BLOOD CULTURE 2020-11-28 22:36:00 [facility] BLOOD CULTURE 2020-11-28 22:28:00 Jean [facility] CALCIUM, IONIZED 2020-11-28 06:01:00 [facility] COMPREHENSIVE METABOLIC 2020-11-28 04:24:00 Medhat Yost[place]alex [facility] MAGNESIUM 2020-11-28 04:24:00 Maisha [facility] PROTHROMBIN TIME/INR 2020-11-28 04:24:[address] [facility] CREATINE KINASE (CK) 2020-11-28 04:24:[address] [facility] CALCIUM, IONIZED 2020-11-28 04:24:00 [facility] PHOSPHORUS 2020-11-28 04:24:00 [facility] B-TYPE NATRIURETIC FACTOR 2020-11-28 04:24:00 Gary [facility] (BNP) [facility] CBC W/PLT COUNT & AUTO 2020-11-28 04:24:00 Melissa Yost [facility] PREPARE LEUKO-REDUCED RBC 2020-11-27 23:54:00 Melissa Yost [facility] URINALYSIS W/ MICROSCOPIC 2020-11-27 20:46:00 Melissa Yost [facility] CREATININE, RANDOM URINE 2020-11-27 20:46:[address] [facility] SODIUM, RANDOM URINE 2020-11-27 20:46:00 [facility] PROTEIN, RANDOM URINE 2020-11-27 20:46:[address] [facility] UREA NITROGEN, RANDOM 2020-11-27 20:46:00 Jaliljustinmarlin [facility] URINE [facility] VENOUS DOPPLER LEGS 2020-11-27 16:38:00 Jaliljulisa [facility] - BILATERAL [facility] CBC (HEMOGRAM ONLY) 2020-11-27 14:30:[address] [facility] TRANSFUSE LEUKO-REDUCED 2020-11-27 13:27:22 Zia Dan CH, I [facility] - RED BLOOD CELLS [facility] ECG 12-LEAD 2020-11-27 12:15:07 Maisha [facility] PERIPHERAL BLOOD SMEAR - 2020-11-27 03:55:00 Jessica [facility] - PATHOLOGIST REVIEW Medical [facility] RETICULOCYTE COUNT 2020-11-27 03:55:00 [facility] COMPREHENSIVE METABOLIC 2020-11-27 03:55:00 Maisha [facility] PANEL [facility] MAGNESIUM 2020-11-27 03:55:00 Maisha [facility] PROTHROMBIN TIME/INR 2020-11-27 03:55:[address] [facility] TROPONIN I 2020-11-27 03:55:00 Maisha [facility] ALPHA FETOPROTEIN (AFP), 2020-11-27 03:55:00 Kae Jaime l [facility] TUMOR MARKER [facility] HEPATITIS B SURFACE 2020-11-27 03:55:00 Kae Jaime [facility] ANTIBODY [facility] CALCIUM, IONIZED 2020-11-27 03:55:00 Jesse Vega [facility] PHOSPHORUS 2020-11-27 03:55:00 Gary [facility] B-TYPE NATRIURETIC FACTOR 2020-11-27 03:55:00 Jesse Vega [facility] (BNP) [facility] CREATINE KINASE (CK) 2020-11-27 03:55:00 Jesse Vega [facility] CBC W/PLT COUNT & AUTO 2020-11-27 03:55:00 Melissa Yost [facility] DIFFERENTIAL [facility] TRANSFUSE LEUKO-REDUCED 2020-11-27 02:21:01 Melissa Yost [facility] - RED BLOOD CELLS [facility] 2D ECHO W/ DOPPLER 2020-11-26 23:21:13 Patel Solorio [facility] (CW/PW/COLOR) [facility] MR ABDOMEN WITH & WITHOUT 2020-11-26 17:45:00 Melissa Yost [facility] - IV CONTRAST [facility] HAPTOGLOBIN 2020-11-26 14:49:00 Jessica [facility] LACTATE DEHYDROGENASE 2020-11-26 14:49:00 Jessica [facility] (LDH) [facility] FERRITIN 2020-11-26 14:49:00 [facility]12 2020-11-26 14:49:00 Lopez [facility] IRON, TIBC, % SAT. 2020-11-26 14:49:00 [facility] VIT[facility] B12 AND FOLATE 2020-11-26 14:49:00 Melissa Yost [facility] TSH/FREE T4 IF INDICATED 2020-11-26 14:49:[address] [facility] TROPONIN I 2020-11-26 14:49:00 [facility] TYPE AND SCREEN, 2020-11-26 14:49:[address] [facility] es - AUTOMATED [facility] SARS-COV2/RT-PCR ([facility] & 2020-11-26 12:40:00 Melissa Yost CH, I [facility] - REF LABS) [facility] XR PELVIS 1 OR 2 VIEWS 2020-11-26 09:55:00 Elizabeth, Page Joaquin [facility] B-TYPE NATRIURETIC FACTOR 2020-11-26 09:53:00 Elizabeth, Page ferrera [facility] (BNP) [facility] COMPREHENSIVE METABOLIC 2020-11-26 09:53:00 Elizabeth, Page Shefali [facility] TROPONIN I 2020-11-26 09:53:00 Elizabeth, [facility] RETICULOCYTE COUNT 2020-11-26 09:53:00 Melissa Yost [facility] CBC W/PLT COUNT & AUTO 2020-11-26 09:53:00 Elizabeth, Page Joaquin [facility] XR CHEST 1 VIEW 2020-11-26 09:51:00 Elizabeth, Page Shefali [facility] - [facility] ECG 12-LEAD 2020-11-26 09:46:54 Elizabeth, [facility] REPORT OF PROCEDURE - 2020-11-26 00:00:00 ProviderNancy [facility] ENDOSCOPY SCAN Scanning [facility] ECG 12-LEAD 2020-10-24 15:42:58 Unknown, Hl7 Doctor [facility] 2D ECHO W/ DOPPLER 2020-10-24 08:27:46 Alfonzo Khan [facility] (CW/PW/COLOR) [facility] HEMOGLOBIN A1C 2020-10-24 05:29:00 [facility] LIPID PANEL 2020-10-24 05:29:00 [facility] TSH/FREE T4 IF INDICATED 2020-10-24 05:29:00 [facility] VITAMIN B12 AND FOLATE 2020-10-24 05:29:00 [facility] BASIC METABOLIC PANEL (7) 2020-10-24 05:29:00 Ryan Monroe I [facility] MAGNESIUM 2020-10-24 05:29:00 [facility] PHOSPHORUS 2020-10-24 05:29:00 [facility] CBC W/PLT COUNT & AUTO 2020-10-24 05:29:00 [facility] CTA BRAIN 2020-10-23 23:44:00 [facility], [facility] CT/CTA CAROTID 2020-10-23 23:44:00 [facility], [facility] RPR 2020-10-23 19:45:00 [facility] C-REACTIVE PROTEIN 2020-10-23 19:45:00 [facility] MR BRAIN WITHOUT IV 2020-10-23 18:27:00 [facility], [facility] SARS-COV2/RT-PCR ([facility] & 2020-10-23 16:23:00 [facility], [facility] REF LABS) [facility] CT BRAIN/STROKE TEST 2020-10-23 15:20:[address] [facility] PROTHROMBIN TIME/INR 2020-10-23 14:56:00 Jaswant, [facility] TROPONIN I 2020-10-23 14:56:00 Jaswant, [facility] PT/APTT 2020-10-23 14:56:00 Jaswant [facility] COMPREHENSIVE METABOLIC 2020-10-23 14:56:00 Jaswant [facility] CBC W/PLT COUNT & AUTO 2020-10-23 14:56:00 [facility] URINALYSIS W/ MICROSCOPIC 2020-09-27 14:54:00 Adam Gallardo [facility] ECG 12-LEAD 2020-09-27 10:26:13 Adam Gallardo [facility] COMPREHENSIVE METABOLIC 2020-09-27 10:26:00 Adam Gallardo [facility] MAGNESIUM 2020-09-27 10:26:00 Adam Gallardo [facility] B-TYPE NATRIURETIC FACTOR 2020-09-27 10:26:00 Adam Gallardo [facility] (BNP) [facility] PHOSPHORUS 2020-09-27 10:26:00 Adam Gallardo [facility] CBC W/PLT COUNT & AUTO 2020-09-27 10:26:[address] [facility] AMMONIA 2020-09-27 10:21:00 Aundrea jolly [facility] REPORT OF PROCEDURE - 2020-09-27 00:00:00 ProviderNancy [facility] ENDOSCOPY SCAN Scanning [facility] BASIC METABOLIC PANEL (7) 2020-08-06 14:24:00 Shreyas Randall [facility] HEPATIC FUNCTION PANEL 2020-08-06 14:24:00 Wilfredo Randallmayi A. C [facility] PROTHROMBIN TIME/INR 2020-08-06 14:24:00 Shreyas Randall [facility] ALPHA FETOPROTEIN (AFP), 2020-08-06 14:24:00 Shreyas Randall [facility] TUMOR MARKER [facility] CBC W/PLT COUNT & AUTO 2020-08-06 14:24:[address] [facility] BASIC METABOLIC PANEL (7) 2019-12-18 11:07:00 Marcella Bullard [facility] ALPHA FETOPROTEIN (AFP), 2019-12-18 11:07:00 Marcella Bullard [facility] TUMOR [facility] PROTHROMBIN TIME/INR 2019-12-18 11:07:00 Marcella Bullard [facility] CBC W/PLT COUNT & AUTO 2019-12-18 11:07:00 Marcella Bullard [facility] HEPATIC FUNCTION PANEL 2019-12-18 11:07:00 Marcella Bullard [facility] Plan of Care Planned Activity Planned Date Details Comments Source Future Scheduled 2029-08-13 Screening for [facility] Test 00:00:00 [facility] colon (procedure) [code = 933299451] Future Scheduled 2020-10-[address] [facility] - Test 00:00:00 (12+) [code = Medical Center DEPRESSION SCREENING (12+)] Future Scheduled 2020-06-17 INFLUENZA VACCINE (#1) [facility] Test 00:00:00 [code = INFLUENZA Medical nter VACCINE (#1)] Future Scheduled 2020-05-17 INFLUENZA VACCINE [place] 00:00:00 [code = INFLUENZA VACCINE] Future Scheduled 2016-06-[address] [facility] - Test 00:00:00 WELLNESS (YEAR 2 or [facility] FIRST YEAR if no IPPE) [code = MEDICARE ANNUAL WELLNESS (YEAR 2 or FIRST YEAR if no IPPE)] Future Scheduled 2015 65+ PNEUMOCOCCAL [facility] Test 00:00:00 VACCINE (1 of 1 - PPSV23) [code = 65+ PNEUMOCOCCAL VACCINE (1 of 1 - PPSV23)] Future Scheduled 2015 PNEUMOCOCCAL 65+ YRS [facility] - Test 00:00:00 (1 of 1 - [facility] [id number] PCV13) [code = PNEUMOCOCCAL 65+ YRS (1 of 1 - [id number] PCV13)] Future Scheduled 2000 BREAST CANCER [facility] Test 00:00:00 SCREENING [code = BREAST CANCER SCREENING] Future Scheduled 2000 COLONOSCOPY SCREENING [facility] Test 00:00:00 [code = COLONOSCOPY SCREENING] Future Scheduled 2000 SHINGLES VACCINES (#1) [facility] Test 00:00:00 [code = SHINGLES VACCINES (#1)] Future Scheduled 2000 SHINGLES VACCINES ([address] [facility] - Test 00:00:00 of 2) [code = SHINGLES Medic al Center VACCINES (1 of 2)] Future Scheduled 1969 DTAP/TDAP/TD VACCINES [facility] Test 00:00:00 (1 - Tdap) [code = Medical C enter DTAP/TDAP/TD VACCINES (1 - Tdap)] Future Scheduled 1966 COVID-19 VACCINE (1 of [facility] [place] [facility] Test 00:00:00 2) [code = COVID-19 VACCINE (1 of 2)] Future Scheduled [address] [facility] - Test 00:00:00 malignant neoplasm of [facility] breast (procedure) [code = 071844941] Results Test Description Test Time Test Comments Results Result Comments Source Comprehensive metabolic panel 2020-12-08 07:02:00 Test Item Value Reference Range Interpretation Comme nts Protein, Total (test 5.3 See_Comment L [Autom ated message] code = 2885-2) The system [employer] generated this result transmitted ref erence range: 6.0 - 8. 3 gm/dL. The reference r lacie was not used to int erpret this result as normal/abnormal . Albumin (test code = 2.1 g/dL 3.5-5 L 00695-4) Alkaline Phosphatase 105 U/L 40-150 (test code = 6768-6) Total Bilirubin (test 2.9 mg/dL 0.2-1.2 H code = 1974-2) Sodium (test code = 139 meq/L 516-167 6373-2) Potassium (test code = 4.4 meq/L 3.5-5.1 2823-3) Chloride (test code = 101 meq/L 98-107 2075-0) CO2 (test code = 34 meq/L 22-29 H 2027-9) BUN (test code = 27 mg/dL 7-21 H 3094-0) Creatinine (test code 1.18 mg/dL 0.57-1.25 = 2160-0) Glucose (test code = 131 mg/dL 70-105 H 2345-7) Calcium (test code = 7.7 mg/dL 8.4-10.2 L 07409-2) AST (test code = 29 U/L 5-34 1920-8) ALT (test code = 56 U/L 6-55 H 1742-6) EGFR (test code = 45 mL/min/1.73 [place] [address]-0) ACCURATE CRE ATININE CLEARANCE IN ME EDICTING GLOMERULAR FILT RATION RATE. ESTIMATED GFR IS NOT APPLICABLE FOR DIALYSIS PATIEN TS. DENA (test code = DENA) Area Development Consultant ID - ADMINSpecimen slightly icteric Lab Interpretation Abnormal (test code = 98867-0) [facility] [id number] 07:02:00 Test Item Value Reference Range Interpretation Comments TOTAL PROTEIN 5.3 gm/dL 6.0-8.3 L (BEAKER) (test code = 770) ALBUMIN (BEAKER) 2.1 g/dL 3.5-5.0 L (test code = 1145) ALKALINE PHOSPHATASE 105 U/L 40-150 (BEAKER) (test code = 346) BILIRUBIN TOTAL 2.9 mg/dL 0.2-1.2 H (BEAKER) (test code = 377) SODIUM (BEAKER) (test 139 meq/L 136-145 code = 381) POTASSIUM (BEAKER) 4.4 meq/L 3.5-5.1 (test code = 379) CHLORIDE (BEAKER) 101 meq/L 98-107 (test code = 382) CO2 (BEAKER) (test 34 meq/L 22-29 H code = 355) BLOOD UREA NITROGEN 27 mg/dL 7-21 H (BEAKER) (test code = 354) CREATININE (BEAKER) 1.18 mg/dL 0.57-1.25 (test code = 358) GLUCOSE RANDOM 131 mg/dL 70-105 H (BEAKER) (test code = 652) CALCIUM (BEAKER) 7.7 mg/dL 8.4-10.2 L (test code = 697) AST (SGOT) (BEAKER) 29 U/L 5-34 (test code = 353) ALT (SGPT) (BEAKER) 56 U/L 6-55 H (test code = 347) EGFR (BEAKER) (test 45 mL/min/1.73 ESTIMA JACQUELYN GFR IS code = 1092) sq m NOT ACCURATE CREATININE CLEARANCE IN PREDICTING GLOMERULAR FILTRATION RATE . ESTIMATED GFR I S NOT APPLICABLE FOR DIALYSIS PATIEN TS. Area Development Consultant ID - ADMINSpecimen slightly ictericHepatic function [id number] 07:00:00 Test Item Value Reference Range Interpretation Comments Protein, Total (test 5.3 See_Comment L [Autom ated code = 2885-2) message] The system which generated this result transmitted reference range : 6.0 - 8.3 gm/dL . The reference range was not used to interpret this result as normal/abnormal . Albumin (test code = 2.1 g/dL 3.5-5 L 79781-7) Total Bilirubin 2.9 mg/dL 0.2-1.2 H (test code = 1974-2) Bilirubin, Direct 1.1 mg/dL 0.1-0.5 H (test code = 1967-7) Alkaline Phosphatase 105 U/L 40-150 (test code = 6768-6) AST (test code = 29 U/L 5-34 1920-8) ALT (test code = 56 U/L 6-55 H 1742-6) DENA (test code = Area Development Consultant ID - DENA) ADMINSpecimen slightly icteric Lab Interpretation Abnormal (test code = 23346-4) [facility]2020-12-08 07:00:00 Test Item Value Reference Range Interpretation Comments Total CK (test code = 35 U/L 29-200 2157-6) DENA (test code = DENA) Area Development Consultant ID - ADMIN Lab Interpretation (test Normal code = 86132-2) [facility]esium2021-02-22 07:00:00 Test Item Value Reference Range Interpretation Comments Magnesium (test code = 2.3 mg/dL 1.6-2.6 43964-0) DENA (test code = DENA) Area Development Consultant ID - ADMIN Lab Interpretation (test Normal code = 95509-5) [facility]2021-[facility]-22 07:00:00 Test Item Value Reference Range Interpretation Comments Phosphorus (test code = 2.8 mg/dL 2.3-4.7 2777-1) DENA (test code = DENA) Area Development Consultant ID - ADMIN Lab Interpretation (test Normal code = 94335-2) [facility]2021-[facility]-22 07:00:00 Test Item Value Reference Range Interpretation Comments MAGNESIUM (BEAKER) (test code = 2.3 mg/dL 1.6-2.6 627) Area Development Consultant ID - [id number] 07:00:00 Test Item Value Reference Range Interpretation Comments PHOSPHORUS (BEAKER) (test code = 2.8 mg/dL 2.3-4.7 604) Area Development Consultant ID - ADMINHEPATIC FUNCTION [id number] 07:00:00 Test Item Value Reference Range Interpretation Comments TOTAL PROTEIN (BEAKER) (test code = 5.3 gm/dL 6.0-8.3 L 770) ALBUMIN (BEAKER) (test code = 1145) 2.1 g/dL 3.5-5.0 L BILIRUBIN TOTAL (BEAKER) (test code 2.9 mg/dL 0.2-1.2 H = 377) BILIRUBIN DIRECT (BEAKER) (test 1.1 mg/dL 0.1-0.5 H code = 706) ALKALINE PHOSPHATASE (BEAKER) (test 105 U/L 40-150 code = 346) AST (SGOT) (BEAKER) (test code = 29 U/L 5-34 353) ALT (SGPT) (BEAKER) (test code = 56 U/L 6-55 H 347) Area Development Consultant ID - ADMINSpecimen slightly ictericCREATINE KINASE (CK)2020-12-08 07:00:00 Test Item Value Reference Range Interpretation Comments CREATINE KINASE TOTAL (BEAKER) (test 35 U/L 29-200 code = 380) Area Development Consultant ID - ADMINCBC with platelet count + automated [id number] 06:58:00 Test Item Value Reference Range Interpretation Comments WBC (test code = 6690-2) 3.3 See_Comment L [A utomated message] The system [employer] generated this result transmitted ref erence range: 3.5 - 10 .5 K/L. The refe rence range was not u sed to interpret this result as normal/abnor mal. RBC (test code = 789-8) 2.78 See_Comment L [Au tomated message] The system [employer] generated this result transmitted ref erence range: 3.93 - 5 .22 M/L. The refe rence range was not u sed to interpret this result as normal/abnor mal. MCHC (test code = 786-4) 29.3 See_Comment L [A utomated message] The system [employer] generated this result transmitted ref erence range: 32.2 - 3 5.5 GM/DL. The refe rence range was not u sed to interpret this result as normal/abnor mal. Hematocrit (test code = 26.6 % 34.1-44.9 L 4544-3) MCV (test code = 787-2) 95.7 fL 79.4-94.8 H MCH (test code = 785-6) 28.1 pg 25.6-32.2 RDW (test code = 788-0) 25.4 % 11.7-14.4 H Platelets (test code = 24 See_Comment L [Aut omated message] 777-3) The system [employer] generated this result transmitted ref erence range: 150 - 45 0 K/CU MM. The referen ce range was not u sed to interpret this result as normal/abnor mal. MPV (test code = 11.4 fL 9.4-12.3 91598-4) nRBC (test code = 413) 0 See_Comment [Aut omated message] The system [employer] generated this result transmitted ref erence range: 0 - 0 /1 00 WBC. The refere nce range was not u sed to interpret this result as normal/abnor mal. % Neutros (test code = 64 % 429) % Lymphs (test code = 17 % 430) % Monos (test code = 13 % 431) % Eos (test code = 432) 5 % % Baso (test code = 437) 1 % # Neutros (test code = 2.11 See_Comment [Aut omated message] 670) The system [employer] generated this result transmitted ref erence range: 1.56 - 6 .13 K/L. The refe rence range was not u sed to interpret this result as normal/abnor mal. # Lymphs (test code = 0.55 See_Comment L [Auto mated message] 414) The system [employer] generated this result transmitted ref erence range: 1.18 - 3 .74 K/L. The refe rence range was not u sed to interpret this result as normal/abnor mal. # Monos (test code = 0.41 See_Comment H [Autom ated message] 415) The system [employer] generated this result transmitted ref erence range: 0.24 - 0 .36 K/L. The refe rence range was not u sed to interpret this result as normal/abnor mal. # Eos (test code = 416) 0.17 See_Comment [Au tomated message] The system [employer] generated this result transmitted ref erence range: 0.04 - 0 .36 K/L. The refe rence range was not u sed to interpret this result as normal/abnor mal. # Baso (test code = 417) 0.03 See_Comment [A utomated message] The system [employer] generated this result transmitted ref erence range: 0.01 - 0 .08 K/L. The refe rence range was not u sed to interpret this result as normal/abnor mal. Immature 0 % 0-1 Granulocytes-Relative (test code = 2801) Lab Interpretation (test Abnormal code = 23703-9) [facility] W/PLT COUNT & AUTO [id number] 06:58:00 Test Item Value Reference Range Interpretation Comments WHITE BLOOD CELL COUNT (BEAKER) 3.3 K/ L 3.5-10.5 L (test code = 775) RED BLOOD CELL COUNT (BEAKER) 2.78 M/ L 3.93-5.22 L (test code = 761) HEMOGLOBIN (BEAKER) (test code = 7.8 GM/DL 11.2-15.7 L 410) HEMATOCRIT (BEAKER) (test code = 26.6 % 34.1-44.9 L 411) MEAN CORPUSCULAR VOLUME (BEAKER) 95.7 fL 79.4-94.8 H (test code = 753) MEAN CORPUSCULAR HEMOGLOBIN 28.1 pg 25.6-32.2 (BEAKER) (test code = 751) MEAN CORPUSCULAR HEMOGLOBIN CONC 29.3 GM/DL 32.2-35.5 L (BEAKER) (test code = 752) RED CELL DISTRIBUTION WIDTH 25.4 % 11.7-14.4 H (BEAKER) (test code = 412) PLATELET COUNT (BEAKER) (test code 24 K/CU MM 150-450 L = 756) MEAN PLATELET VOLUME (BEAKER) 11.4 fL 9.4-12.3 (test code = 754) NUCLEATED RED BLOOD CELLS (BEAKER) 0 /100 WBC 0-0 (test code = 413) NEUTROPHILS RELATIVE PERCENT 64 % (BEAKER) (test code = 429) LYMPHOCYTES RELATIVE PERCENT 17 % (BEAKER) (test code = 430) MONOCYTES RELATIVE PERCENT 13 % (BEAKER) (test code = 431) EOSINOPHILS RELATIVE PERCENT 5 % (BEAKER) (test code = 432) BASOPHILS RELATIVE PERCENT 1 % (BEAKER) (test code = 437) NEUTROPHILS ABSOLUTE COUNT 2.11 K/ L 1.56-6.13 (BEAKER) (test code = 670) LYMPHOCYTES ABSOLUTE COUNT 0.55 K/ L 1.18-3.74 L (BEAKER) (test code = 414) MONOCYTES ABSOLUTE COUNT (BEAKER) 0.41 K/ L 0.24-0.36 H (test code = 415) EOSINOPHILS ABSOLUTE COUNT 0.17 K/ L 0.04-0.36 (BEAKER) (test code = 416) BASOPHILS ABSOLUTE COUNT (BEAKER) 0.03 K/ L 0.01-0.08 (test code = 417) IMMATURE GRANULOCYTES-RELATIVE 0 % 0-1 PERCENT (BEAKER) (test code = 2801) Calcium, [id number] 06:49:00 Test Item Value Reference Range Interpretation Comments Calcium, Ion (test code = 1994-) 1.09 mmol/L 1.12-1.27 L pH, Blood (test code = 01311-4) 7.36 Lab Interpretation (test code = Abnormal 78185-4) [facility], [id number] 06:49:00 Test Item Value Reference Range Interpretation Comments CALCIUM IONIZED (BEAKER) (test 1.09 mmol/L 1.12-1.27 L code = 698) PH, BLOOD (BEAKER) (test code = 7.36 1810) Prothrombin time/[id number] 06:48:00 Test Item Value Reference Interpretation Comments Range Protime (test code = 19.0 See_Comment H [Autom ated 5432-2) message] The system which generated this result transmitted reference range : 11.9 - 14.2 seconds. The reference range was not used to interpret this result as normal/abnormal . INR (test code = 1.66 See_Comment [Automated 5991-6) message] The system which generated this result transmitted reference range : <=5.90. The reference range was not used to interpret this result as normal/abnormal . DENA (test code = Effective 03/14/2019: DENA) PT Reference Range ChangeNew: 11.9-14.2 Previous: 11.7-14.7 RECOMMENDED COUMADIN/WARFARIN INR THERAPY RANGESSTANDARD DOSE: 2.0-3.0 Includes: PROPHYLAXIS for venous thrombosis, systemic embolization; TREATMENT for venous thrombosis and/or pulmonary embolus.HIGH RISK: Target INR is 2.5-3.5 for patients wiht mechanical heart valves. Lab Interpretation Abnormal (test code = 22938-1) [facility]are[facility]HROM[facility] TIME/[id number] 06:48:00 Test Item Value Reference Range Interpretation Comments PROTIME (BEAKER) 19.0 seconds 11.9-14.2 H (test code = 759) INR (BEAKER) (test 1.66 See_Comment [Automat ed message] code = 370) The system [employer] generated this result transmitted ref erence range: <=5.90. The reference range was not used to int erpret this result as normal/abnormal . Effective 03/14/2019: PT Reference Range ChangeNew: 11.9-14.2 Previous: 11.7- 14.7RECOMMENDED COUMADIN/WARFARIN INR THERAPY RANGESSTANDARD DOSE: 2.0-3.0 Includes: PROPHYLAXIS for venous thrombosis, systemic embolization; TREATMENT for venous thrombosis and/or pulmonary embolus.HIGH RISK: Target INR is2.5-3.5 for patients wiht mechanical heart valves.U/S, RENAL, [id number] 05:26:00DR WINSLOWeferring: Dr. Eric Morel for exam:->jose [facility]uel [facility] : 1950 Sex: FFINAL REPORT U/S, RENAL, COMPLETEUltrasound of the Kidneys Clinical History: jose manuel Discussion: Sonographic evaluation of the kidneys is performed. Right kidney: 12.0 x 6.3 x 6.3 cm, with cortical thickness of 1.5 cm. Normal cortical echogenicity. No mass. No shadowing calculus. Mild hydronephrosis. Left kidney: 9.9 x 5.6 x 4.9 cm, with cortical thickness of 1.0 cm. Normal cortical echogenicity. No mass. No shadowing calculus. No hydronephrosis. Limited doppler evaluation of bilateral main renal arteries and veins demonstrate patency. Bladder: Unremarkable. Impression: Mild left hydronephrosis. Signed: Michael Tabareseport Verified Date/Time: 12/08/2020 05:26:28 US renal [id number] 05:26:00Interface, External Ris In - 12/08/2020 5:28 AM CSTFINAL REPORT U/S, RENAL, C OMPLETEUltrasound of the Kidneys Clinical History: jose manuel Discussion: Sonographic evaluation of the kidneys is performed. Right kidney: 12.0 x 6.3 x 6.3 cm, with cortical thickness of 1.5 cm. Normal cortical echogenicity. No mass. No shadowing calculus. Mild hydronephrosis. Left kidney: 9.9 x 5.6 x 4.9 cm, with cortical thickness of 1.0 cm. Normal cortical echogenicity. No mass. No shadowing calculus. No hydronephrosis. Limited doppler evaluation of bilateral main renal arteries and veins demonstrate patency. Bladder: Unremarkable. Impression: Mild left hydronephrosis. Signed: Michael Tabares MDReport Verified Date/Time: 12/08/2020 05:26:28 [facility] [id number] 21:05:00 Test Item Value Reference Range Interpretation Comments Creatinine, Ur 130.0 mg/dL (test code = 2161-8) DENA (test code = Reference Range: No DENA) NormalsOperator ID - BS [facility]Protein, random [id number] 21:05:00 Test Item Value Reference Range Interpretation Comments Protein, Urine (test code = 32 mg/dL 0-14 H 2888-6) DENA (test code = DENA) Area Development Consultant ID - BS Lab Interpretation (test Abnormal code = 90538-6) [facility] [id number] 21:05:00 Test Item Value Reference Range Interpretation Comments Sodium Urine (test 26 meq/L code = 2955-3) DENA (test code = Reference Range: No DENA) NormalsOperator ID - BS [facility] HospitalODIUM, RANDOM [id number] 21:05:00 Test Item Value Reference Range Interpretation Comments SODIUM URINE (BEAKER) (test code = 26 meq/L 243) Reference Range: No NormalsOperator ID - BSCREATININE, RANDOM [id number] 21:05:00 Test Item Value Reference Range Interpretation Comments CREATININE URINE (BEAKER) (test 130.0 mg/dL code = 375) Reference Range: No NormalsOperator ID - BSPROTEIN, RANDOM [id number] 21:05:00 Test Item Value Reference Range Interpretation Comments PROTEIN, URINE (BEAKER) (test code = 32 mg/dL 0-14 H 1569) Area Development Consultant ID - BSUrinalysis w/[id number] 20:44:00 Test Item Value Reference Range Interpretation Comments Color, UA (test code Brown = 5778-6) Clarity, UA (test Cloudy code = 5767-9) Specific Morgan, UA 1.017 1.001-1.035 (test code = 5811-5) pH, UA (test code = 5.5 5.0-8.0 5803-2) Protein, UA (test 30 mg/dL Negative A code = 36431-0) Glucose, UA (test Negative Negative code = 365) Ketones, UA (test Negative Negative code = 2514-8) Bilirubin, UA (test Negative Negative code = 84243-1) Blood, UA (test code Large Negative A = 12355-0) Nitrite, UA (test Negative Negative code = 5802-4) Leukocytes, UA (test Moderate Negative A code = 5799-2) Urobilinogen, UA 2.0 mg/dL 0.2-1 H (test code = 99304-7) RBC, UA (test code = 340 See_Comment [Autom ated 41836-8) message] The system which generated this result transmitted reference range : /HPF. The reference range was not used to interpret this result as normal/abnormal . WBC, UA (test code = 81 See_Comment [Autom ated 5821-4) message] The system which generated this result transmitted reference range : /HPF. The reference range was not used to interpret this result as normal/abnormal . Mucus (test code = Occasional 8247-9) Squam Epithel, UA 8 See_Comment [Automate d (test code = 35005-2) messag e] The system which generated this result transmitted reference range : /HPF. The reference range was not used to interpret this result as normal/abnormal . Specimen Source (test code = 2795) DENA (test code = DENA) Area Development Consultant ID - [auto]Area Development Consultant ID - tech Lab Interpretation Abnormal (test code = 01192-4) [facility]are[facility]INALYS[facility] W/ [id number] 20:44:00 Test Item Value Reference Range Interpretation Comments COLOR (BEAKER) (test code = 470) Brown CLARITY (BEAKER) (test code = 469) Cloudy SPECIFIC GRAVITY UA (BEAKER) (test 1.017 1.001-1.035 code = 468) PH UA (BEAKER) (test code = 467) 5.5 5.0-8.0 PROTEIN UA (BEAKER) (test code = 30 mg/dL Negative A 464) GLUCOSE UA (BEAKER) (test code = Negative Negative 365) KETONES UA (BEAKER) (test code = Negative Negative 371) BILIRUBIN UA (BEAKER) (test code = Negative Negative 462) BLOOD UA (BEAKER) (test code = Large Negative A 461) NITRITE UA (BEAKER) (test code = Negative Negative 465) LEUKOCYTE ESTERASE UA (BEAKER) Moderate Negative A (test code = 466) UROBILINOGEN UA (BEAKER) (test 2.0 mg/dL 0.2-1.0 H code = 463) RBC UA (BEAKER) (test code = 519) 340 /HPF WBC UA (BEAKER) (test code = 520) 81 /HPF MUCUS (BEAKER) (test code = 1574) Occasional SQUAMOUS EPITHELIAL (BEAKER) (test 8 /HPF code = 516) SOURCE(BEAKER) (test code = 2795) Area Development Consultant ID - [auto]Area Development Consultant ID - techCOMPREHENSIVE METABOLIC [id number] 05:50:00 Test Item Value Reference Range Interpretation Comments TOTAL PROTEIN 5.6 gm/dL 6.0-8.3 L (BEAKER) (test code = 770) ALBUMIN (BEAKER) 2.2 g/dL 3.5-5.0 L (test code = 1145) ALKALINE PHOSPHATASE 127 U/L 40-150 (BEAKER) (test code = 346) BILIRUBIN TOTAL 2.6 mg/dL 0.2-1.2 H (BEAKER) (test code = 377) SODIUM (BEAKER) (test 140 meq/L 136-145 code = 381) POTASSIUM (BEAKER) 4.5 meq/L 3.5-5.1 (test code = 379) CHLORIDE (BEAKER) 102 meq/L 98-107 (test code = 382) CO2 (BEAKER) (test 34 meq/L 22-29 H code = 355) BLOOD UREA NITROGEN 28 mg/dL 7-21 H (BEAKER) (test code = 354) CREATININE (BEAKER) 1.42 mg/dL 0.57-1.25 H (test code = 358) GLUCOSE RANDOM 149 mg/dL 70-105 H (BEAKER) (test code = 652) CALCIUM (BEAKER) 7.8 mg/dL 8.4-10.2 L (test code = 697) AST (SGOT) (BEAKER) 34 U/L 5-34 (test code = 353) ALT (SGPT) (BEAKER) 69 U/L 6-55 H (test code = 347) EGFR (BEAKER) (test 37 mL/min/1.73 ESTIMA JACQUELYN GFR IS code = 1092) sq m NOT ACCURATE CREATININE CLEARANCE IN PREDICTING GLOMERULAR FILTRATION RATE . ESTIMATED GFR I S NOT APPLICABLE FOR DIALYSIS PATIEN TS. Area Development Consultant ID - EDASISpecimen slightly [id number] 05:49:00 Test Item Value Reference Range Interpretation Comments MAGNESIUM (BEAKER) (test code = 2.4 mg/dL 1.6-2.6 627) Area Development Consultant ID - [id number] 05:49:00 Test Item Value Reference Range Interpretation Comments PHOSPHORUS (BEAKER) (test code = 3.3 mg/dL 2.3-4.7 604) Area Development Consultant ID - EDASIHEPATIC FUNCTION [id number] 05:49:00 Test Item Value Reference Range Interpretation Comments TOTAL PROTEIN (BEAKER) (test code = 5.6 gm/dL 6.0-8.3 L 770) ALBUMIN (BEAKER) (test code = 1145) 2.2 g/dL 3.5-5.0 L BILIRUBIN TOTAL (BEAKER) (test code 2.6 mg/dL 0.2-1.2 H = 377) BILIRUBIN DIRECT (BEAKER) (test 1.3 mg/dL 0.1-0.5 H code = 706) ALKALINE PHOSPHATASE (BEAKER) (test 127 U/L 40-150 code = 346) AST (SGOT) (BEAKER) (test code = 34 U/L 5-34 353) ALT (SGPT) (BEAKER) (test code = 69 U/L 6-55 H 347) Area Development Consultant ID - EDASISpecimen slightly ictericPROTHROMBIN [id number] 05:41:00 Test Item Value Reference Range Interpretation Comments PROTIME (BEAKER) 18.3 seconds 11.9-14.2 H (test code = 759) INR (BEAKER) (test 1.58 See_Comment [Automat ed message] code = 370) The system [employer] generated this result transmitted ref erence range: <=5.90. The reference range was not used to int erpret this result as normal/abnormal . Effective 03/14/2019: PT Reference Range ChangeNew: 11.9-14.2 Previous: 11.7- 14.7RECOMMENDED COUMADIN/WARFARIN INR THERAPY RANGESSTANDARD DOSE: 2.0-3.0 Includes: PROPHYLAXIS for venous thrombosis, systemic embolization; TREATMENT for venous thrombosis and/or pulmonary embolus.HIGH RISK: Target INR is2.5-3.5 for patients wiht mechanical heart valves.CALCIUM, [id number] 05:28:00 Test Item Value Reference Range Interpretation Comments CALCIUM IONIZED (BEAKER) (test 1.10 mmol/L 1.12-1.27 L code = 698) PH, BLOOD (BEAKER) (test code = 7.34 1810) CBC W/PLT COUNT & AUTO [id number] 05:27:00 Test Item Value Reference Range Interpretation Comments WHITE BLOOD CELL COUNT (BEAKER) 4.7 K/ L 3.5-10.5 (test code = 775) RED BLOOD CELL COUNT (BEAKER) 2.85 M/ L 3.93-5.22 L (test code = 761) HEMOGLOBIN (BEAKER) (test code = 7.9 GM/DL 11.2-15.7 L 410) HEMATOCRIT (BEAKER) (test code = 26.7 % 34.1-44.9 L 411) MEAN CORPUSCULAR VOLUME (BEAKER) 93.7 fL 79.4-94.8 (test code = 753) MEAN CORPUSCULAR HEMOGLOBIN 27.7 pg 25.6-32.2 (BEAKER) (test code = 751) MEAN CORPUSCULAR HEMOGLOBIN CONC 29.6 GM/DL 32.2-35.5 L (BEAKER) (test code = 752) RED CELL DISTRIBUTION WIDTH 24.3 % 11.7-14.4 H (BEAKER) (test code = 412) PLATELET COUNT (BEAKER) (test code 25 K/CU MM 150-450 L = 756) MEAN PLATELET VOLUME (BEAKER) 9.5 fL 9.4-12.3 (test code = 754) NUCLEATED RED BLOOD CELLS (BEAKER) 0 /100 WBC 0-0 (test code = 413) NEUTROPHILS RELATIVE PERCENT 67 % (BEAKER) (test code = 429) LYMPHOCYTES RELATIVE PERCENT 16 % (BEAKER) (test code = 430) MONOCYTES RELATIVE PERCENT 11 % (BEAKER) (test code = 431) EOSINOPHILS RELATIVE PERCENT 5 % (BEAKER) (test code = 432) BASOPHILS RELATIVE PERCENT 1 % (BEAKER) (test code = 437) NEUTROPHILS ABSOLUTE COUNT 3.19 K/ L 1.56-6.13 (BEAKER) (test code = 670) LYMPHOCYTES ABSOLUTE COUNT 0.75 K/ L 1.18-3.74 L (BEAKER) (test code = 414) MONOCYTES ABSOLUTE COUNT (BEAKER) 0.51 K/ L 0.24-0.36 H (test code = 415) EOSINOPHILS ABSOLUTE COUNT 0.24 K/ L 0.04-0.36 (BEAKER) (test code = 416) BASOPHILS ABSOLUTE COUNT (BEAKER) 0.03 K/ L 0.01-0.08 (test code = 417) IMMATURE GRANULOCYTES-RELATIVE 0 % 0-1 PERCENT (BEAKER) (test code = 2801) COMPREHENSIVE METABOLIC [id number] 06:09:00 Test Item Value Reference Range Interpretation Comments TOTAL PROTEIN 5.7 gm/dL 6.0-8.3 L (BEAKER) (test code = 770) ALBUMIN (BEAKER) 2.3 g/dL 3.5-5.0 L (test code = 1145) ALKALINE PHOSPHATASE 121 U/L 40-150 (BEAKER) (test code = 346) BILIRUBIN TOTAL 3.2 mg/dL 0.2-1.2 H (BEAKER) (test code = 377) SODIUM (BEAKER) (test 143 meq/L 136-145 code = 381) POTASSIUM (BEAKER) 4.0 meq/L 3.5-5.1 (test code = 379) CHLORIDE (BEAKER) 103 meq/L 98-107 (test code = 382) CO2 (BEAKER) (test 35 meq/L 22-29 H code = 355) BLOOD UREA NITROGEN 25 mg/dL 7-21 H (BEAKER) (test code = 354) CREATININE (BEAKER) 1.26 mg/dL 0.57-1.25 H (test code = 358) GLUCOSE RANDOM 132 mg/dL 70-105 H (BEAKER) (test code = 652) CALCIUM (BEAKER) 7.9 mg/dL 8.4-10.2 L (test code = 697) AST (SGOT) (BEAKER) 40 U/L 5-34 H (test code = 353) ALT (SGPT) (BEAKER) 84 U/L 6-55 H (test code = 347) EGFR (BEAKER) (test 42 mL/min/1.73 ESTIMA JACQUELYN GFR IS code = 1092) sq m NOT ACCURATE CREATININE CLEARANCE IN PREDICTING GLOMERULAR FILTRATION RATE . ESTIMATED GFR I S NOT APPLICABLE FOR DIALYSIS PATIEN TS. Area Development Consultant ID - ALIZA MSpecimen slightly ictericCBC W/PLT COUNT & AUTO [id number] 05:56:00 Test Item Value Reference Range Interpretation Comments WHITE BLOOD CELL COUNT 4.8 K/ L 3.5-10.5 (BEAKER) (test code = 775) RED BLOOD CELL COUNT 2.92 M/ L 3.93-5.22 L (BEAKER) (test code = 761) HEMOGLOBIN (BEAKER) 8.0 GM/DL 11.2-15.7 L (test code = 410) HEMATOCRIT (BEAKER) 27.6 % 34.1-44.9 L (test code = 411) MEAN CORPUSCULAR 94.5 fL 79.4-94.8 Discordant MCV VOLUME (BEAKER) (test result s compared to code = 753) previous result s; clinical correl ation required. MEAN CORPUSCULAR 27.4 pg 25.6-32.2 HEMOGLOBIN (BEAKER) (test code = 751) MEAN CORPUSCULAR 29.0 GM/DL 32.2-35.5 L HEMOGLOBIN CONC (BEAKER) (test code = 752) RED CELL DISTRIBUTION 23.6 % 11.7-14.4 H WIDTH (BEAKER) (test code = 412) PLATELET COUNT 35 K/CU MM 150-450 L (BEAKER) (test code = 756) MEAN PLATELET VOLUME 11.2 fL 9.4-12.3 (BEAKER) (test code = 754) NUCLEATED RED BLOOD 0 /100 WBC 0-0 CELLS (BEAKER) (test code = 413) NEUTROPHILS RELATIVE 66 % PERCENT (BEAKER) (test code = 429) LYMPHOCYTES RELATIVE 17 % PERCENT (BEAKER) (test code = 430) MONOCYTES RELATIVE 11 % PERCENT (BEAKER) (test code = 431) EOSINOPHILS RELATIVE 6 % PERCENT (BEAKER) (test code = 432) BASOPHILS RELATIVE 0 % PERCENT (BEAKER) (test code = 437) NEUTROPHILS ABSOLUTE 3.12 K/ L 1.56-6.13 COUNT (BEAKER) (test code = 670) LYMPHOCYTES ABSOLUTE 0.83 K/ L 1.18-3.74 L COUNT (BEAKER) (test code = 414) MONOCYTES ABSOLUTE 0.50 K/ L 0.24-0.36 H COUNT (BEAKER) (test code = 415) EOSINOPHILS ABSOLUTE 0.26 K/ L 0.04-0.36 COUNT (BEAKER) (test code = 416) BASOPHILS ABSOLUTE 0.02 K/ L 0.01-0.08 COUNT (BEAKER) (test code = 417) IMMATURE 1 % 0-1 GRANULOCYTES-RELATIVE PERCENT (BEAKER) (test code = 2801) [id number] 05:53:00 Test Item Value Reference Range Interpretation Comments MAGNESIUM (BEAKER) (test code = 2.2 mg/dL 1.6-2.6 627) Area Development Consultant ID - ALIZA MHEPATIC FUNCTION [id number] 05:53:00 Test Item Value Reference Range Interpretation Comments TOTAL PROTEIN (BEAKER) (test code = 5.7 gm/dL 6.0-8.3 L 770) ALBUMIN (BEAKER) (test code = 1145) 2.3 g/dL 3.5-5.0 L BILIRUBIN TOTAL (BEAKER) (test code 3.2 mg/dL 0.2-1.2 H = 377) BILIRUBIN DIRECT (BEAKER) (test 1.4 mg/dL 0.1-0.5 H code = 706) ALKALINE PHOSPHATASE (BEAKER) (test 121 U/L 40-150 code = 346) AST (SGOT) (BEAKER) (test code = 40 U/L 5-34 H 353) ALT (SGPT) (BEAKER) (test code = 84 U/L 6-55 H 347) Area Development Consultant ID - LAIZA MSpecimen slightly [id number] 06:10:00 Test Item Value Reference Range Interpretation Comments MAGNESIUM (BEAKER) (test code = 2.0 mg/dL 1.6-2.6 627) Area Development Consultant ID - [id number] 06:10:00 Test Item Value Reference Range Interpretation Comments PHOSPHORUS (BEAKER) (test code = 2.5 mg/dL 2.3-4.7 604) Area Development Consultant ID - EDASICOMPREHENSIVE METABOLIC [id number] 06:10:00 Test Item Value Reference Range Interpretation Comments TOTAL PROTEIN 5.5 gm/dL 6.0-8.3 L (BEAKER) (test code = 770) ALBUMIN (BEAKER) 2.4 g/dL 3.5-5.0 L (test code = 1145) ALKALINE PHOSPHATASE 115 U/L 40-150 (BEAKER) (test code = 346) BILIRUBIN TOTAL 4.2 mg/dL 0.2-1.2 H (BEAKER) (test code = 377) SODIUM (BEAKER) (test 142 meq/L 136-145 code = 381) POTASSIUM (BEAKER) 4.0 meq/L 3.5-5.1 (test code = 379) CHLORIDE (BEAKER) 104 meq/L 98-107 (test code = 382) CO2 (BEAKER) (test 32 meq/L 22-29 H code = 355) BLOOD UREA NITROGEN 25 mg/dL 7-21 H (BEAKER) (test code = 354) CREATININE (BEAKER) 1.26 mg/dL 0.57-1.25 H (test code = 358) GLUCOSE RANDOM 157 mg/dL 70-105 H (BEAKER) (test code = 652) CALCIUM (BEAKER) 8.1 mg/dL 8.4-10.2 L (test code = 697) AST (SGOT) (BEAKER) 44 U/L 5-34 H (test code = 353) ALT (SGPT) (BEAKER) 95 U/L 6-55 H (test code = 347) EGFR (BEAKER) (test 42 mL/min/1.73 ESTIMA JACQUELYN GFR IS code = 1092) sq m NOT ACCURATE CREATININE CLEARANCE IN PREDICTING GLOMERULAR FILTRATION RATE . ESTIMATED GFR I S NOT APPLICABLE FOR DIALYSIS PATIEN TS. Area Development Consultant ID - EDASISpecimen moderately ictericHEPATIC FUNCTION [id number] 06:10:00 Test Item Value Reference Range Interpretation Comments TOTAL PROTEIN (BEAKER) (test code = 5.5 gm/dL 6.0-8.3 L 770) ALBUMIN (BEAKER) (test code = 1145) 2.4 g/dL 3.5-5.0 L BILIRUBIN TOTAL (BEAKER) (test code 4.2 mg/dL 0.2-1.2 H = 377) BILIRUBIN DIRECT (BEAKER) (test 1.7 mg/dL 0.1-0.5 H code = 706) ALKALINE PHOSPHATASE (BEAKER) (test 115 U/L 40-150 code = 346) AST (SGOT) (BEAKER) (test code = 44 U/L 5-34 H 353) ALT (SGPT) (BEAKER) (test code = 95 U/L 6-55 H 347) Area Development Consultant ID - EDASISpecimen moderately ictericB-type Natriuretic Factor (BNP) 2020-12-05 05:49:00 Test Item Value Reference Range Interpretation Comments BNP (test code = 08649-0) 231 pg/mL 0-100 H DENA (test code = DENA) Area Development Consultant ID - EDASI Lab Interpretation (test Abnormal code = 55927-0) [facility]BNP[facility]2020-12-05 05:49:00 Test Item Value Reference Range Interpretation Comments B-TYPE NATRIURETIC PEPTIDE (BEAKER) 231 pg/mL 0-100 H (test code = 700) Area Development Consultant ID - EDASIPROTHROMBIN [id number] 05:27:00 Test Item Value Reference Range Interpretation Comments PROTIME (BEAKER) 20.0 seconds 11.9-14.2 H (test code = 759) INR (BEAKER) (test 1.77 See_Comment [Automat ed message] code = 370) The system [employer] generated this result transmitted ref erence range: <=5.90. The reference range was not used to int erpret this result as normal/abnormal . Effective 03/14/2019: PT Reference Range ChangeNew: 11.9-14.2 Previous: 11.7- 14.7RECOMMENDED COUMADIN/WARFARIN INR THERAPY RANGESSTANDARD DOSE: 2.0-3.0 Includes: PROPHYLAXIS for venous thrombosis, systemic embolization; TREATMENT for venous thrombosis and/or pulmonary embolus.HIGH RISK: Target INR is2.5-3.5 for patients wiht mechanical heart valves.CBC W/PLT COUNT & AUTO [id number] 05:19:00 Test Item Value Reference Range Interpretation Comments WHITE BLOOD CELL COUNT (BEAKER) 6.0 K/ L 3.5-10.5 (test code = 775) RED BLOOD CELL COUNT (BEAKER) 2.93 M/ L 3.93-5.22 L (test code = 761) HEMOGLOBIN (BEAKER) (test code = 8.0 GM/DL 11.2-15.7 L 410) HEMATOCRIT (BEAKER) (test code = 26.5 % 34.1-44.9 L 411) MEAN CORPUSCULAR VOLUME (BEAKER) 90.4 fL 79.4-94.8 (test code = 753) MEAN CORPUSCULAR HEMOGLOBIN 27.3 pg 25.6-32.2 (BEAKER) (test code = 751) MEAN CORPUSCULAR HEMOGLOBIN CONC 30.2 GM/DL 32.2-35.5 L (BEAKER) (test code = 752) RED CELL DISTRIBUTION WIDTH 22.6 % 11.7-14.4 H (BEAKER) (test code = 412) PLATELET COUNT (BEAKER) (test code 33 K/CU MM 150-450 L = 756) MEAN PLATELET VOLUME (BEAKER) 10.9 fL 9.4-12.3 (test code = 754) NUCLEATED RED BLOOD CELLS (BEAKER) 0 /100 WBC 0-0 (test code = 413) NEUTROPHILS RELATIVE PERCENT 74 % (BEAKER) (test code = 429) LYMPHOCYTES RELATIVE PERCENT 11 % (BEAKER) (test code = 430) MONOCYTES RELATIVE PERCENT 10 % (BEAKER) (test code = 431) EOSINOPHILS RELATIVE PERCENT 4 % (BEAKER) (test code = 432) BASOPHILS RELATIVE PERCENT 1 % (BEAKER) (test code = 437) NEUTROPHILS ABSOLUTE COUNT 4.42 K/ L 1.56-6.13 (BEAKER) (test code = 670) LYMPHOCYTES ABSOLUTE COUNT 0.68 K/ L 1.18-3.74 L (BEAKER) (test code = 414) MONOCYTES ABSOLUTE COUNT (BEAKER) 0.59 K/ L 0.24-0.36 H (test code = 415) EOSINOPHILS ABSOLUTE COUNT 0.21 K/ L 0.04-0.36 (BEAKER) (test code = 416) BASOPHILS ABSOLUTE COUNT (BEAKER) 0.05 K/ L 0.01-0.08 (test code = 417) IMMATURE GRANULOCYTES-RELATIVE 1 % 0-1 PERCENT (BEAKER) (test code = 2801) CALCIUM, [id number] 05:19:00 Test Item Value Reference Range Interpretation Comments CALCIUM IONIZED (BEAKER) (test 1.11 mmol/L 1.12-1.27 L code = 698) PH, BLOOD (BEAKER) (test code = 7.41 1810) Bilirubin, [id number] 10:34:00 Test Item Value Reference Range Interpretation Comments Bilirubin, Direct (test 2.3 mg/dL 0.1-0.5 H code = 1968-7) DENA (test code = DENA) Area Development Consultant ID - AAHAMID Lab Interpretation (test Abnormal code = 46862-3) [facility] [id number] 10:34:00 Test Item Value Reference Range Interpretation Comments BILIRUBIN DIRECT (BEAKER) (test 2.3 mg/dL 0.1-0.5 H code = 706) Area Development Consultant ID - AAHAMIDSARS-CoV2/RT-PCR (Asymptomatic ONLY)2020-12-04 07:25:00 Test Item Value Reference Range Interpretation Comments SARS-COV2/RT-PCR Negative Not Detected, (test code = Negative, See 98941-7) external report for linked test SARS-COV-2 [facility] PERFORMING LAB (test code = 29384-4) DENA (test code = Negative result for this DENA) test determines that SARS-CoV-2 RNA was not present in the [...] of the Act. Fact Sheet for Healthcare Providers:https://www.[employer]/sites/default/f lois/product/documents/F act_Sheet_HC_Providers_L wdd_VRCG-PjM-3.pdf Fact Sheet for Healthcare Patients:https://www.[address] [facility] [employer]/sites/default/fi les/product/documents/Fa ct_Sheet_Patients_Ly_S ARS-CoV-2.pdf Performing Laboratory:[facility], [place] [address] [place], [place] [address]ARS-COV2/RT-PCR ([facility])2020-12-04 07:25:00 Test Item Value Reference Range Interpretation Comments SARS-COV2/RT-PCR (test Negative Not Detected, Negative, code = 4512469) See external report for linked test SARS-COV-2 PERFORMING LAB [facility] (test code = 3550292) Negative result for this test determines that SARS-CoV-2 RNA was not present in the specimen above the Limit of Detection (LOD). However, Negative results do not preclude SARS-CoV-2 infection and should not be used as the sole basis for treatment or patient management decisions. Negative results mustbe combined with clinical observations, patient history, and epidemiological information. A false negative result may occur if a specimen is improperly collected, transported or handled. A false negative result should be considered if patient's recent exposures or clinical presentation indicate that COVID-19 (SARS-CoV-2) is likely and diagnostic tests for other causes of illness are negative. Re-testing should be considered in cases of suspected false negatives.The limit of detection for this assay is 800 copies/mL.This SARS CoV-2 test is a real-time RT-PCR test intended for the qualitative detection of nucleic acid from SARS-CoV-2 in a nasopharyngeal swab specimen collected from individuals susp ected of COVID-19 by their healthcare provider.This test has not been Food and Drug [...] is revoked under Section 564(g) of the Act.Fact Sheet for Healthcare Providers:https://www.[employer]/sites/default/files/product/documents/Fact_Shee e_IS_Apsrlwvqe_Xiai_LNKE-TzE-2.pdfFact Sheet for Healthcare Patients:https://www.[employer]/sites/default/files/product/ documents/Hddv_Kvgmd_Jyelpmgm_Sdub_QCMI-YlA-4.pdfPerforming Laboratory:[facility] [place], [place] [address]E-WAXK NATRIURETIC FACTOR (BNP)2020-12-04 05:48:00 Test Item Value Reference Range Interpretation Comments B-TYPE NATRIURETIC PEPTIDE (BEAKER) 365 pg/mL 0-100 H (test code = 700) Area Development Consultant ID - ALIZA [id number] 05:42:00 Test Item Value Reference Range Interpretation Comments MAGNESIUM (BEAKER) (test code = 2.1 mg/dL 1.6-2.6 627) Area Development Consultant ID - ALIZA [id number] 05:42:00 Test Item Value Reference Range Interpretation Comments PHOSPHORUS (BEAKER) (test code = 2.2 mg/dL 2.3-4.7 L 604) Area Development Consultant ID - ALIZA MCOMPREHENSIVE METABOLIC [id number] 05:42:00 Test Item Value Reference Range Interpretation Comments TOTAL PROTEIN 5.7 gm/dL 6.0-8.3 L (BEAKER) (test code = 770) ALBUMIN (BEAKER) 2.3 g/dL 3.5-5.0 L (test code = 1145) ALKALINE PHOSPHATASE 124 U/L 40-150 (BEAKER) (test code = 346) BILIRUBIN TOTAL 5.2 mg/dL 0.2-1.2 H (BEAKER) (test code = 377) SODIUM (BEAKER) (test 140 meq/L 136-145 code = 381) POTASSIUM (BEAKER) 4.2 meq/L 3.5-5.1 (test code = 379) CHLORIDE (BEAKER) 103 meq/L 98-107 (test code = 382) CO2 (BEAKER) (test 32 meq/L 22-29 H code = 355) BLOOD UREA NITROGEN 20 mg/dL 7-21 (BEAKER) (test code = 354) CREATININE (BEAKER) 0.91 mg/dL 0.57-1.25 (test code = 358) GLUCOSE RANDOM 135 mg/dL 70-105 H (BEAKER) (test code = 652) CALCIUM (BEAKER) 8.0 mg/dL 8.4-10.2 L (test code = 697) AST (SGOT) (BEAKER) 60 U/L 5-34 H (test code = 353) ALT (SGPT) (BEAKER) 107 U/L 6-55 H (test code = 347) EGFR (BEAKER) (test 61 mL/min/1.73 ESTIMA JACQUELYN GFR IS code = 1092) sq m NOT ACCURATE CREATININE CLEARANCE IN PREDICTING GLOMERULAR FILTRATION RATE . ESTIMATED GFR I S NOT APPLICABLE FOR DIALYSIS PATIEN TS. Area Development Consultant ID - ALIZA MSpecimen moderately ictericCALCIUM, [id number] 05:18:00 Test Item Value Reference Range Interpretation Comments CALCIUM IONIZED (BEAKER) (test 1.11 mmol/L 1.12-1.27 L code = 698) PH, BLOOD (BEAKER) (test code = 7.38 1810) CBC W/PLT COUNT & AUTO [id number] 05:13:00 Test Item Value Reference Range Interpretation Comments WHITE BLOOD CELL COUNT (BEAKER) 6.0 K/ L 3.5-10.5 (test code = 775) RED BLOOD CELL COUNT (BEAKER) 3.11 M/ L 3.93-5.22 L (test code = 761) HEMOGLOBIN (BEAKER) (test code = 8.3 GM/DL 11.2-15.7 L 410) HEMATOCRIT (BEAKER) (test code = 28.4 % 34.1-44.9 L 411) MEAN CORPUSCULAR VOLUME (BEAKER) 91.3 fL 79.4-94.8 (test code = 753) MEAN CORPUSCULAR HEMOGLOBIN 26.7 pg 25.6-32.2 (BEAKER) (test code = 751) MEAN CORPUSCULAR HEMOGLOBIN CONC 29.2 GM/DL 32.2-35.5 L (BEAKER) (test code = 752) RED CELL DISTRIBUTION WIDTH 21.5 % 11.7-14.4 H (BEAKER) (test code = 412) PLATELET COUNT (BEAKER) (test code 40 K/CU MM 150-450 L = 756) MEAN PLATELET VOLUME (BEAKER) 11.4 fL 9.4-12.3 (test code = 754) NUCLEATED RED BLOOD CELLS (BEAKER) 0 /100 WBC 0-0 (test code = 413) NEUTROPHILS RELATIVE PERCENT 77 % (BEAKER) (test code = 429) LYMPHOCYTES RELATIVE PERCENT 9 % (BEAKER) (test code = 430) MONOCYTES RELATIVE PERCENT 11 % (BEAKER) (test code = 431) EOSINOPHILS RELATIVE PERCENT 2 % (BEAKER) (test code = 432) BASOPHILS RELATIVE PERCENT 1 % (BEAKER) (test code = 437) NEUTROPHILS ABSOLUTE COUNT 4.62 K/ L 1.56-6.13 (BEAKER) (test code = 670) LYMPHOCYTES ABSOLUTE COUNT 0.52 K/ L 1.18-3.74 L (BEAKER) (test code = 414) MONOCYTES ABSOLUTE COUNT (BEAKER) 0.68 K/ L 0.24-0.36 H (test code = 415) EOSINOPHILS ABSOLUTE COUNT 0.09 K/ L 0.04-0.36 (BEAKER) (test code = 416) BASOPHILS ABSOLUTE COUNT (BEAKER) 0.03 K/ L 0.01-0.08 (test code = 417) IMMATURE GRANULOCYTES-RELATIVE 1 % 0-1 PERCENT (BEAKER) (test code = 2801) Blood Culture - Routine (Right Venipuncture)2020-12-04 00:00:00 Test Item Value Reference Range Interpretation Comments Result (test code = No growth in 5 days 6463-4) [id number]:00 Test Item Value Reference Range Interpretation Comments CULTURE (BEAKER) (test No growth in 5 days code = 1095) BLOOD [id number] 00:00:00 Test Item Value Reference Range Interpretation Comments CULTURE (BEAKER) (test No growth in 5 days code = 1095) RAD, CHEST, 1 VIEW, NON [id number] 22:22:00DR Ammoning: Dr. Eric Morel for exam:->edemaShould this be performed at the bedside?->Yes [facility] : 1950 Sex: FFINAL REPORT RAD, CHEST, 1 VIEW, NON DEPT INDICATION: edema COM PARISON: November 26, 2020 FINDINGS: Portable frontal view of the chest. IMPRESSION:Patient is rotated toward the left distorting anatomic landmarks. Increased pulmonary airspace disease compatible worsening pulmonary edema or pneumonitis. Retrocardiac consolidation present, likely atelectasis or confluent edema. Small pleural effusions are not excluded. No pneumothorax. Cardiomediastinal silhouette is partially obscured and magnified by technique. Stable osseous structures. Signed: Michael Tabares MDReport Verified Date/Time: 12/03/2020 22:22:17 XR chest 1 view portable / [id number] 22:22:00 Interface, External Ris In - 12/03/2020 10:24 PM CSTFINAL REPORT RAD, CHEST, 1 VIEW, NON DEPT INDICATION: edema COMPARISON: November 26, 2020 FINDINGS: Portable frontal view of the chest. IMPRESSION:Patient is rotated toward the left distorting anatomic landmarks. Increased pulmonary airspace disease compatible worsening pulmonary edema or pneumonitis. Retrocardiac consolidation present, likely atelectasis or confluent edema. Small pleural effusions are not excluded. No pneumothorax. Cardiomediastinal silhouette is partially obscured and magnified by technique. Stable osseous structures. Signed: Michael Tabares MDReport Verified Date/Time: 12/03/2020 22:22:17 [facility] [id number] 06:26:00 Test Item Value Reference Range Interpretation Comments TOTAL PROTEIN 5.2 gm/dL 6.0-8.3 L (BEAKER) (test code = 770) ALBUMIN (BEAKER) 2.2 g/dL 3.5-5.0 L (test code = 1145) ALKALINE PHOSPHATASE 103 U/L 40-150 (BEAKER) (test code = 346) BILIRUBIN TOTAL 3.9 mg/dL 0.2-1.2 H (BEAKER) (test code = 377) SODIUM (BEAKER) (test 138 meq/L 136-145 code = 381) POTASSIUM (BEAKER) 4.3 meq/L 3.5-5.1 (test code = 379) CHLORIDE (BEAKER) 104 meq/L 98-107 (test code = 382) CO2 (BEAKER) (test 31 meq/L 22-29 H code = 355) BLOOD UREA NITROGEN 20 mg/dL 7-21 (BEAKER) (test code = 354) CREATININE (BEAKER) 0.92 mg/dL 0.57-1.25 (test code = 358) GLUCOSE RANDOM 121 mg/dL 70-105 H (BEAKER) (test code = 652) CALCIUM (BEAKER) 7.6 mg/dL 8.4-10.2 L (test code = 697) AST (SGOT) (BEAKER) 58 U/L 5-34 H (test code = 353) ALT (SGPT) (BEAKER) 106 U/L 6-55 H (test code = 347) EGFR (BEAKER) (test 60 mL/min/1.73 ESTIMA JACQUELYN GFR IS code = 1092) sq m NOT ACCURATE CREATININE CLEARANCE IN PREDICTING GLOMERULAR FILTRATION RATE . ESTIMATED GFR I S NOT APPLICABLE FOR DIALYSIS PATIEN TS. Area Development Consultant ID - ALIZA MSpecimen moderately [id number] 06:20:00 Test Item Value Reference Range Interpretation Comments MAGNESIUM (BEAKER) (test code = 2.3 mg/dL 1.6-2.6 627) Area Development Consultant ID - ALIZA MCBC W/PLT COUNT & AUTO [id number] 06:08:00 Test Item Value Reference Range Interpretation Comments WHITE BLOOD CELL COUNT (BEAKER) 4.6 K/ L 3.5-10.5 (test code = 775) RED BLOOD CELL COUNT (BEAKER) 3.06 M/ L 3.93-5.22 L (test code = 761) HEMOGLOBIN (BEAKER) (test code = 8.2 GM/DL 11.2-15.7 L 410) HEMATOCRIT (BEAKER) (test code = 28.5 % 34.1-44.9 L 411) MEAN CORPUSCULAR VOLUME (BEAKER) 93.1 fL 79.4-94.8 (test code = 753) MEAN CORPUSCULAR HEMOGLOBIN 26.8 pg 25.6-32.2 (BEAKER) (test code = 751) MEAN CORPUSCULAR HEMOGLOBIN CONC 28.8 GM/DL 32.2-35.5 L (BEAKER) (test code = 752) RED CELL DISTRIBUTION WIDTH 20.2 % 11.7-14.4 H (BEAKER) (test code = 412) PLATELET COUNT (BEAKER) (test code 32 K/CU MM 150-450 L = 756) MEAN PLATELET VOLUME (BEAKER) 10.6 fL 9.4-12.3 (test code = 754) NUCLEATED RED BLOOD CELLS (BEAKER) 0 /100 WBC 0-0 (test code = 413) NEUTROPHILS RELATIVE PERCENT 70 % (BEAKER) (test code = 429) LYMPHOCYTES RELATIVE PERCENT 13 % (BEAKER) (test code = 430) MONOCYTES RELATIVE PERCENT 12 % (BEAKER) (test code = 431) EOSINOPHILS RELATIVE PERCENT 3 % (BEAKER) (test code = 432) BASOPHILS RELATIVE PERCENT 0 % (BEAKER) (test code = 437) NEUTROPHILS ABSOLUTE COUNT 3.20 K/ L 1.56-6.13 (BEAKER) (test code = 670) LYMPHOCYTES ABSOLUTE COUNT 0.61 K/ L 1.18-3.74 L (BEAKER) (test code = 414) MONOCYTES ABSOLUTE COUNT (BEAKER) 0.56 K/ L 0.24-0.36 H (test code = 415) EOSINOPHILS ABSOLUTE COUNT 0.15 K/ L 0.04-0.36 (BEAKER) (test code = 416) BASOPHILS ABSOLUTE COUNT (BEAKER) 0.02 K/ L 0.01-0.08 (test code = 417) IMMATURE GRANULOCYTES-RELATIVE 1 % 0-1 PERCENT (BEAKER) (test code = 2801) COMPREHENSIVE METABOLIC [id number] 06:20:00 Test Item Value Reference Range Interpretation Comments TOTAL PROTEIN 5.4 gm/dL 6.0-8.3 L (BEAKER) (test code = 770) ALBUMIN (BEAKER) 2.4 g/dL 3.5-5.0 L (test code = 1145) ALKALINE PHOSPHATASE 104 U/L 40-150 (BEAKER) (test code = 346) BILIRUBIN TOTAL 3.8 mg/dL 0.2-1.2 H (BEAKER) (test code = 377) SODIUM (BEAKER) (test 139 meq/L 136-145 code = 381) POTASSIUM (BEAKER) 4.4 meq/L 3.5-5.1 (test code = 379) CHLORIDE (BEAKER) 106 meq/L 98-107 (test code = 382) CO2 (BEAKER) (test 31 meq/L 22-29 H code = 355) BLOOD UREA NITROGEN 19 mg/dL 7-21 (BEAKER) (test code = 354) CREATININE (BEAKER) 0.94 mg/dL 0.57-1.25 (test code = 358) GLUCOSE RANDOM 118 mg/dL 70-105 H (BEAKER) (test code = 652) CALCIUM (BEAKER) 7.7 mg/dL 8.4-10.2 L (test code = 697) AST (SGOT) (BEAKER) 82 U/L 5-34 H (test code = 353) ALT (SGPT) (BEAKER) 129 U/L 6-55 H (test code = 347) EGFR (BEAKER) (test 59 mL/min/1.73 ESTIMA JACQUELYN GFR IS code = 1092) sq m NOT ACCURATE CREATININE CLEARANCE IN PREDICTING GLOMERULAR FILTRATION RATE . ESTIMATED GFR I S NOT APPLICABLE FOR DIALYSIS PATIEN TS. Area Development Consultant ID - ALIZA MSpecimen slightly ictericCALCIUM, [id number] 05:40:00 Test Item Value Reference Range Interpretation Comments CALCIUM IONIZED (BEAKER) (test 1.14 mmol/L 1.12-1.27 code = 698) PH, BLOOD (BEAKER) (test code = 7.26 1810) [id number] 05:36:00 Test Item Value Reference Range Interpretation Comments MAGNESIUM (BEAKER) (test code = 2.5 mg/dL 1.6-2.6 627) Area Development Consultant ID - ALIZA [id number] 05:36:00 Test Item Value Reference Range Interpretation Comments PHOSPHORUS (BEAKER) (test code = 2.2 mg/dL 2.3-4.7 L 604) Area Development Consultant ID - ALIZA MBILIRUBIN, [id number] 05:36:00 Test Item Value Reference Range Interpretation Comments BILIRUBIN DIRECT (BEAKER) (test 1.8 mg/dL 0.1-0.5 H code = 706) Area Development Consultant ID - ALIZA MCREATINE KINASE (CK)2020-12-02 05:36:00 Test Item Value Reference Range Interpretation Comments CREATINE KINASE TOTAL (BEAKER) (test 385 U/L 29-200 H code = 380) Area Development Consultant ID - ALIZA MCBC W/PLT COUNT & AUTO [id number] 05:07:00 Test Item Value Reference Range Interpretation Comments WHITE BLOOD CELL COUNT (BEAKER) 5.5 K/ L 3.5-10.5 (test code = 775) RED BLOOD CELL COUNT (BEAKER) 3.26 M/ L 3.93-5.22 L (test code = 761) HEMOGLOBIN (BEAKER) (test code = 8.5 GM/DL 11.2-15.7 L 410) HEMATOCRIT (BEAKER) (test code = 29.9 % 34.1-44.9 L 411) MEAN CORPUSCULAR VOLUME (BEAKER) 91.7 fL 79.4-94.8 (test code = 753) MEAN CORPUSCULAR HEMOGLOBIN 26.1 pg 25.6-32.2 (BEAKER) (test code = 751) MEAN CORPUSCULAR HEMOGLOBIN CONC 28.4 GM/DL 32.2-35.5 L (BEAKER) (test code = 752) RED CELL DISTRIBUTION WIDTH 19.5 % 11.7-14.4 H (BEAKER) (test code = 412) PLATELET COUNT (BEAKER) (test code 37 K/CU MM 150-450 L = 756) MEAN PLATELET VOLUME (BEAKER) 8.8 fL 9.4-12.3 L (test code = 754) NUCLEATED RED BLOOD CELLS (BEAKER) 0 /100 WBC 0-0 (test code = 413) NEUTROPHILS RELATIVE PERCENT 67 % (BEAKER) (test code = 429) LYMPHOCYTES RELATIVE PERCENT 15 % (BEAKER) (test code = 430) MONOCYTES RELATIVE PERCENT 12 % (BEAKER) (test code = 431) EOSINOPHILS RELATIVE PERCENT 5 % (BEAKER) (test code = 432) BASOPHILS RELATIVE PERCENT 0 % (BEAKER) (test code = 437) NEUTROPHILS ABSOLUTE COUNT 3.70 K/ L 1.56-6.13 (BEAKER) (test code = 670) LYMPHOCYTES ABSOLUTE COUNT 0.81 K/ L 1.18-3.74 L (BEAKER) (test code = 414) MONOCYTES ABSOLUTE COUNT (BEAKER) 0.65 K/ L 0.24-0.36 H (test code = 415) EOSINOPHILS ABSOLUTE COUNT 0.28 K/ L 0.04-0.36 (BEAKER) (test code = 416) BASOPHILS ABSOLUTE COUNT (BEAKER) 0.02 K/ L 0.01-0.08 (test code = 417) IMMATURE GRANULOCYTES-RELATIVE 1 % 0-1 PERCENT (BEAKER) (test code = 2801) U/S, ABDOMINAL, [id number] 13:39:00DR JAMES Referring: Dr. Eric Neal Labs to be ordered:->Body Fluid Culture (w/Gram Stain, C\\T\\S) Labs to be ordered:- >Cell Count Reason for exam:->diagnostic. limit 2 L for therapeutic. [facility] 1950 Sex: FFINAL REPORT U/S, ABDOMINAL, LIMITED CLINICAL HISTORY: diagnostic. Limit 2 L for therapeutic. COMPARISON: Abdominal MRI 12/06/2020 TECHNIQUE: Real time transverse and longitudinal images of the abdominal quadrants were obtained. FINDINGS / IMPRESSION: Small volumeascites, mostly perihepatic, insufficient for paracentesis, no paracentesis performed. Signed: Kell Langston Verified Date/Time: 12/01/2020 13:39:28 Reading Location: [facility] C013Y CT Body Reading Room US abdomen [id number] 13:39:00Interface, External Ris In - 12/01/2020 1:41 PM CSTFINAL REPORT U/S, ABDOMINAL, LIMITED CLINICAL HISTORY: diagnostic. Limit 2 L for therapeutic. COMPARISON: Abdominal MRI 12/06/2020 TECHNIQUE: Real time transverse and longitudinal images of the abdominal quadrants were obtained.FINDINGS / IMPRESSION: Small volume ascites, mostly perihepatic, insufficient for paracentesis, no paracentesis performed. Signed: Kell Langston Verified Date/Time: 12/01/2020 13:39:28 Reading Location: [facility] C013Y CT Body Reading Room [facility] CREATINE KINASE (CK)2020-12-01 11:58:00 Test Item Value Reference Range Interpretation Comments CREATINE KINASE TOTAL (BEAKER) (test 610 U/L 29-200 H code = 380) Area Development Consultant ID - ALIZA OMPREHENSIVE METABOLIC [id number] 05:36:00 Test Item Value Reference Range Interpretation Comments TOTAL PROTEIN 5.5 gm/dL 6.0-8.3 L (BEAKER) (test code = 770) ALBUMIN (BEAKER) 2.5 g/dL 3.5-5.0 L (test code = 1145) ALKALINE PHOSPHATASE 109 U/L 40-150 (BEAKER) (test code = 346) BILIRUBIN TOTAL 3.6 mg/dL 0.2-1.2 H (BEAKER) (test code = 377) SODIUM (BEAKER) (test 140 meq/L 136-145 code = 381) POTASSIUM (BEAKER) 4.2 meq/L 3.5-5.1 (test code = 379) CHLORIDE (BEAKER) 105 meq/L 98-107 (test code = 382) CO2 (BEAKER) (test 30 meq/L 22-29 H code = 355) BLOOD UREA NITROGEN 21 mg/dL 7-21 (BEAKER) (test code = 354) CREATININE (BEAKER) 0.98 mg/dL 0.57-1.25 (test code = 358) GLUCOSE RANDOM 132 mg/dL 70-105 H (BEAKER) (test code = 652) CALCIUM (BEAKER) 7.9 mg/dL 8.4-10.2 L (test code = 697) AST (SGOT) (BEAKER) 105 U/L 5-34 H (test code = 353) ALT (SGPT) (BEAKER) 141 U/L 6-55 H (test code = 347) EGFR (BEAKER) (test 56 mL/min/1.73 ESTIMA JACQUELYN GFR IS code = 1092) sq m NOT ACCURATE CREATININE CLEARANCE IN PREDICTING GLOMERULAR FILTRATION RATE . ESTIMATED GFR I S NOT APPLICABLE FOR DIALYSIS PATIEN TS. Area Development Consultant ID - ALIZA MSpecimen slightly [id number] 05:33:00 Test Item Value Reference Range Interpretation Comments MAGNESIUM (BEAKER) (test code = 2.6 mg/dL 1.6-2.6 627) Area Development Consultant ID - ALIZA MPROTHROMBIN [id number] 05:32:00 Test Item Value Reference Range Interpretation Comments PROTIME (BEAKER) 19.5 seconds 11.9-14.2 H (test code = 759) INR (BEAKER) (test 1.70 See_Comment [Automat ed message] code = 370) The system [employer] generated this result transmitted ref erence range: <=5.90. The reference range was not used to int erpret this result as normal/abnormal . Effective 03/14/2019: PT Reference Range ChangeNew: 11.9-14.2 Previous: 11.7- 14.7RECOMMENDED COUMADIN/WARFARIN INR THERAPY RANGESSTANDARD DOSE: 2.0-3.0 Includes: PROPHYLAXIS for venous thrombosis, systemic embolization; TREATMENT for venous thrombosis and/or pulmonary embolus.HIGH RISK: Target INR is2.5-3.5 for patients wiht mechanical heart valves.CBC W/PLT COUNT & AUTO [id number] 05:11:00 Test Item Value Reference Range Interpretation Comments WHITE BLOOD CELL COUNT (BEAKER) 6.6 K/ L 3.5-10.5 (test code = 775) RED BLOOD CELL COUNT (BEAKER) 3.20 M/ L 3.93-5.22 L (test code = 761) HEMOGLOBIN (BEAKER) (test code = 8.2 GM/DL 11.2-15.7 L 410) HEMATOCRIT (BEAKER) (test code = 28.8 % 34.1-44.9 L 411) MEAN CORPUSCULAR VOLUME (BEAKER) 90.0 fL 79.4-94.8 (test code = 753) MEAN CORPUSCULAR HEMOGLOBIN 25.6 pg 25.6-32.2 (BEAKER) (test code = 751) MEAN CORPUSCULAR HEMOGLOBIN CONC 28.5 GM/DL 32.2-35.5 L (BEAKER) (test code = 752) RED CELL DISTRIBUTION WIDTH 19.3 % 11.7-14.4 H (BEAKER) (test code = 412) PLATELET COUNT (BEAKER) (test code 45 K/CU MM 150-450 L = 756) MEAN PLATELET VOLUME (BEAKER) 10.1 fL 9.4-12.3 (test code = 754) NUCLEATED RED BLOOD CELLS (BEAKER) 0 /100 WBC 0-0 (test code = 413) NEUTROPHILS RELATIVE PERCENT 73 % (BEAKER) (test code = 429) LYMPHOCYTES RELATIVE PERCENT 10 % (BEAKER) (test code = 430) MONOCYTES RELATIVE PERCENT 12 % (BEAKER) (test code = 431) EOSINOPHILS RELATIVE PERCENT 4 % (BEAKER) (test code = 432) BASOPHILS RELATIVE PERCENT 1 % (BEAKER) (test code = 437) NEUTROPHILS ABSOLUTE COUNT 4.77 K/ L 1.56-6.13 (BEAKER) (test code = 670) LYMPHOCYTES ABSOLUTE COUNT 0.65 K/ L 1.18-3.74 L (BEAKER) (test code = 414) MONOCYTES ABSOLUTE COUNT (BEAKER) 0.81 K/ L 0.24-0.36 H (test code = 415) EOSINOPHILS ABSOLUTE COUNT 0.26 K/ L 0.04-0.36 (BEAKER) (test code = 416) BASOPHILS ABSOLUTE COUNT (BEAKER) 0.03 K/ L 0.01-0.08 (test code = 417) IMMATURE GRANULOCYTES-RELATIVE 1 % 0-1 PERCENT (BEAKER) (test code = 2801) Prepare Leuko-Red [id number] 23:54:00 Test Item Value Reference Range Interpretation Comments CROSSMATCH (test code = 2264) COMPATIBLE Unit ABO (test code = A Pos 1153261) UNIT NUMBER (test code = [id number] 934-0) Status (test code = 1782532) TX_TIMEINCHART Blood Bank Product (test code RED BLOOD CELLS = 2263) PRODUCT CODE (test code = D4403I74 933-2) [facility] [id number] 07:42:00 Test Item Value Reference Range Interpretation Comments TOTAL PROTEIN 5.4 gm/dL 6.0-8.3 L Specimen sligh tly (BEAKER) (test code = hemoly zed 770) ALBUMIN (BEAKER) 2.5 g/dL 3.5-5.0 L Specimen sl ightly (test code = 1145) hemolyzed ALKALINE PHOSPHATASE 109 U/L 40-150 (BEAKER) (test code = 346) BILIRUBIN TOTAL 2.8 mg/dL 0.2-1.2 H Specimen sli ghtly (BEAKER) (test code = hemoly zed 377) SODIUM (BEAKER) (test 138 meq/L 136-145 code = 381) POTASSIUM (BEAKER) 4.0 meq/L 3.5-5.1 Specimen slightly (test code = 379) hemolyzed CHLORIDE (BEAKER) 105 meq/L 98-107 (test code = 382) CO2 (BEAKER) (test 27 meq/L 22-29 code = 355) BLOOD UREA NITROGEN 25 mg/dL 7-21 H (BEAKER) (test code = 354) CREATININE (BEAKER) 1.01 mg/dL 0.57-1.25 Specimen slightly (test code = 358) hemolyzed GLUCOSE RANDOM 136 mg/dL 70-105 H (BEAKER) (test code = 652) CALCIUM (BEAKER) 7.5 mg/dL 8.4-10.2 L (test code = 697) AST (SGOT) (BEAKER) 163 U/L 5-34 H Specimen slightly (test code = 353) hemolyzed ALT (SGPT) (BEAKER) 153 U/L 6-55 H Specimen slightly (test code = 347) hemolyzed EGFR (BEAKER) (test 54 mL/min/1.73 ESTIMA JACQUELYN GFR IS code = 1092) sq m NOT ACCURATE CREATININE CLEARANCE IN PREDICTING GLOMERULAR FILTRATION RATE . ESTIMATED GFR I S NOT APPLICABLE FOR DIALYSIS PATIEN TS. Area Development Consultant ID - PIAYA LSpecimen slightly [id number] 07:16:00 Test Item Value Reference Range Interpretation Comments MAGNESIUM (BEAKER) 2.7 mg/dL 1.6-2.6 H Specimen slightly (test code = 627) hemolyzed Area Development Consultant ID - PIAYA LCBC W/PLT COUNT & AUTO [id number] 06:42:00 Test Item Value Reference Range Interpretation Comments WHITE BLOOD CELL COUNT (BEAKER) 6.0 K/ L 3.5-10.5 (test code = 775) RED BLOOD CELL COUNT (BEAKER) 3.09 M/ L 3.93-5.22 L (test code = 761) HEMOGLOBIN (BEAKER) (test code = 8.0 GM/DL 11.2-15.7 L 410) HEMATOCRIT (BEAKER) (test code = 27.0 % 34.1-44.9 L 411) MEAN CORPUSCULAR VOLUME (BEAKER) 87.4 fL 79.4-94.8 (test code = 753) MEAN CORPUSCULAR HEMOGLOBIN 25.9 pg 25.6-32.2 (BEAKER) (test code = 751) MEAN CORPUSCULAR HEMOGLOBIN CONC 29.6 GM/DL 32.2-35.5 L (BEAKER) (test code = 752) RED CELL DISTRIBUTION WIDTH 18.9 % 11.7-14.4 H (BEAKER) (test code = 412) PLATELET COUNT (BEAKER) (test code 52 K/CU MM 150-450 L = 756) MEAN PLATELET VOLUME (BEAKER) 12.4 fL 9.4-12.3 H (test code = 754) NUCLEATED RED BLOOD CELLS (BEAKER) 0 /100 WBC 0-0 (test code = 413) NEUTROPHILS RELATIVE PERCENT 80 % (BEAKER) (test code = 429) LYMPHOCYTES RELATIVE PERCENT 6 % (BEAKER) (test code = 430) MONOCYTES RELATIVE PERCENT 12 % (BEAKER) (test code = 431) EOSINOPHILS RELATIVE PERCENT 2 % (BEAKER) (test code = 432) BASOPHILS RELATIVE PERCENT 1 % (BEAKER) (test code = 437) NEUTROPHILS ABSOLUTE COUNT 4.84 K/ L 1.56-6.13 (BEAKER) (test code = 670) LYMPHOCYTES ABSOLUTE COUNT 0.33 K/ L 1.18-3.74 L (BEAKER) (test code = 414) MONOCYTES ABSOLUTE COUNT (BEAKER) 0.70 K/ L 0.24-0.36 H (test code = 415) EOSINOPHILS ABSOLUTE COUNT 0.10 K/ L 0.04-0.36 (BEAKER) (test code = 416) BASOPHILS ABSOLUTE COUNT (BEAKER) 0.03 K/ L 0.01-0.08 (test code = 417) IMMATURE GRANULOCYTES-RELATIVE 1 % 0-1 PERCENT (BEAKER) (test code = 2801) PROTHROMBIN [id number] 06:15:00 Test Item Value Reference Range Interpretation Comments PROTIME (BEAKER) 20.0 seconds 11.9-14.2 H (test code = 759) INR (BEAKER) (test 1.75 See_Comment [Automat ed message] code = 370) The system [employer] generated this result transmitted ref erence range: <=5.90. The reference range was not used to int erpret this result as normal/abnormal . Effective 03/14/2019: PT Reference Range ChangeNew: 11.9-14.2 Previous: 11.7- 14.7RECOMMENDED COUMADIN/WARFARIN INR THERAPY RANGESSTANDARD DOSE: 2.0-3.0 Includes: PROPHYLAXIS for venous thrombosis, systemic embolization; TREATMENT for venous thrombosis and/or pulmonary embolus.HIGH RISK: Target INR is2.5-3.5 for patients wiht mechanical heart valves.RAD, ABDOMEN/KUB, 1 VIEW [id number] 03:41:00DR HILTONLAKYMeferring: Dr. Eric Morel for exam:->constipationShould this be performed at the bedside?->Yes [facility] 1950 Sex: FFINAL REPORT RAD, ABDOMEN/KUB, 1 VIEW AP CLINICAL HISTORY: cons tipation TECHNIQUE: RAD, ABDOMEN/KUB, 1 VIEW AP COMPARISON: None IMPRESSION: The bowel gas pattern is nonspecific/nonobstructive. Tmwzv-au-ltqgbvli volume fecal burden visualized. Supine imaging insensitive for exclusion of free air. Bilateral pulmonary airspace disease present. Signed: Michael Tabares MDReport Verified Date/Time: 11/30/2020 03:41:22 XR abdomen / KUB 1 [id number] 03:41:00 Interface, External Ris In - 11/30/2020 3:43 AM CSTFINAL REPORT RAD, ABDOMEN/KUB, 1 VIEW AP CLINICAL HISTORY: constipation TECHNIQUE: RAD, ABDOMEN/KUB, 1 VIEW AP COMPARISON: None IMPRESSION: The bowel gas pattern is nonspecific/nonobstructive. Egelc-ov-wejlyitl volume fecal burden visualized. Supine imaging insensitive for exclusion of free air. Bilateral pulmonary airspace disease present. Signed: Michael Tabares MDReport Verified Date/Time: 11/30/2020 03:41:22 [facility] [id number] 01:17:00 Test Item Value Reference Range Interpretation Comments Sodium (test code = 140 meq/L 257-908 0073-2) Potassium (test code 3.9 meq/L 3.5-5.1 = 2823-3) Chloride (test code = 107 meq/L 98-107 2074-0) CO2 (test code = 26 meq/L -29 2028-9) BUN (test code = 25 mg/dL 7-21 H 3094-0) Creatinine (test code 1.13 mg/dL 0.57-1.25 = 2160-0) Glucose (test code = 141 mg/dL 70-105 H 2345-7) Calcium (test code = 7.7 mg/dL 8.4-10.2 L 24582-2) EGFR (test code = 48 mL/min/1.73 [place] [address]-4) NOT ACCURATE CREATININE CLEARANCE IN PREDICTING GLOMERULAR FILTRATION RATE . ESTIMATED GFR I S NOT APPLICABLE FOR DIALYSIS PATIENTS. DENA (test code = DENA) Area Development Consultant ID - KIMBERLYDENY Ying slightly icteric Lab Interpretation Abnormal (test code = 61223-5) [facility] METABOLIC [id number] 01:17:00 Test Item Value Reference Range Interpretation Comments SODIUM (BEAKER) 140 meq/L 136-145 (test code = 381) POTASSIUM (BEAKER) 3.9 meq/L 3.5-5.1 (test code = 379) CHLORIDE (BEAKER) 107 meq/L 98-107 (test code = 382) CO2 (BEAKER) (test 26 meq/L 22-29 code = 355) BLOOD UREA NITROGEN 25 mg/dL 7-21 H (BEAKER) (test code = 354) CREATININE (BEAKER) 1.13 mg/dL 0.57-1.25 (test code = 358) GLUCOSE RANDOM 141 mg/dL 70-105 H (BEAKER) (test code = 652) CALCIUM (BEAKER) 7.7 mg/dL 8.4-10.2 L (test code = 697) EGFR (BEAKER) (test 48 mL/min/1.73 ESTIMA JACQUELYN GFR IS code = 1092) sq m NOT ACCURATE CREATININE CLEARANCE IN PREDICTING GLOMERULAR FILTRATION RATE . ESTIMATED GFR I S NOT APPLICABLE FOR DIALYSIS PATIEN TS. Area Development Consultant ID - MURALI TRANpecimen slightly ictericCBC (Hemogram only)2020-11-29 23:40:00 Test Item Value Reference Range Interpretation Comments WBC (test code = 6690-2) 5.7 See_Comment [A utomated message] The system [employer] generated this result transmitted ref erence range: 3.5 - 10 .5 K/L. The refe rence range was not u sed to interpret this result as normal/abnor mal. RBC (test code = 789-8) 3.01 See_Comment L [Au tomated message] The system [employer] generated this result transmitted ref erence range: 3.93 - 5 .22 M/L. The refe rence range was not u sed to interpret this result as normal/abnor mal. MCHC (test code = 786-4) 29.5 See_Comment L [A utomated message] The system [employer] generated this result transmitted ref erence range: 32.2 - 3 5.5 GM/DL. The refe rence range was not u sed to interpret this result as normal/abnor mal. Hematocrit (test code = 26.4 % 34.1-44.9 L 4544-3) MCV (test code = 787-2) 87.7 fL 79.4-94.8 MCH (test code = 785-6) 25.9 pg 25.6-32.2 RDW (test code = 788-0) 18.7 % 11.7-14.4 H Platelets (test code = 41 See_Comment L [Aut omated message] 777-3) The system [employer] generated this result transmitted ref erence range: 150 - 45 0 K/CU MM. The referen ce range was not u sed to interpret this result as normal/abnor mal. MPV (test code = 10.3 fL 9.4-12.3 00584-0) nRBC (test code = 413) 0 See_Comment [Aut omated message] The system [employer] generated this result transmitted ref erence range: 0 - 0 /1 00 WBC. The refere nce range was not u sed to interpret this result as normal/abnor mal. Lab Interpretation (test Abnormal code = 00192-1) [facility] (HEMOGRAM ONLY)2020-11-29 23:40:00 Test Item Value Reference Range Interpretation Comments WHITE BLOOD CELL COUNT (BEAKER) 5.7 K/ L 3.5-10.5 (test code = 775) RED BLOOD CELL COUNT (BEAKER) 3.01 M/ L 3.93-5.22 L (test code = 761) HEMOGLOBIN (BEAKER) (test code = 7.8 GM/DL 11.2-15.7 L 410) HEMATOCRIT (BEAKER) (test code = 26.4 % 34.1-44.9 L 411) MEAN CORPUSCULAR VOLUME (BEAKER) 87.7 fL 79.4-94.8 (test code = 753) MEAN CORPUSCULAR HEMOGLOBIN 25.9 pg 25.6-32.2 (BEAKER) (test code = 751) MEAN CORPUSCULAR HEMOGLOBIN CONC 29.5 GM/DL 32.2-35.5 L (BEAKER) (test code = 752) RED CELL DISTRIBUTION WIDTH 18.7 % 11.7-14.4 H (BEAKER) (test code = 412) PLATELET COUNT (BEAKER) (test code 41 K/CU MM 150-450 L = 756) MEAN PLATELET VOLUME (BEAKER) 10.3 fL 9.4-12.3 (test code = 754) NUCLEATED RED BLOOD CELLS (BEAKER) 0 /100 WBC 0-0 (test code = 413) POC-Glucose [id number] 20:49:00 Test Item Value Reference Range Interpretation Comments POC-Glucose Meter (test 130 mg/dL 70-110 H : TE STED AT [facility] code = 1538) [address] [facility], [address]: Area Development Consultant/Techni juan antonio ID = [id number] for SHERRY FISHER Lab Interpretation (test Abnormal code = 11227-4) [facility] [id number] 20:49:00 Test Item Value Reference Range Interpretation Comments POC-GLUCOSE METER 130 mg/dL 70-110 H : TESTED A T [facility] 6720 (BEAKER) (test code = [facility], 1538) [id number]: Area Development Consultant/Techni juan antonio ID = [id number] for SHERRY GHOSH RA Type and screen, [id number] 12:29:00 Test Item Value Reference Range Interpretation Comments ABO/RH AUTOMATED ([facility]) (test A POSITIVE code = 2260) Ab Scrn (test code = 890-4) NEGATIVE [facility] [id number] 06:22:00 Test Item Value Reference Range Interpretation Comments TOTAL PROTEIN 5.2 gm/dL 6.0-8.3 L (BEAKER) (test code = 770) ALBUMIN (BEAKER) 2.5 g/dL 3.5-5.0 L (test code = 1145) ALKALINE PHOSPHATASE 101 U/L 40-150 (BEAKER) (test code = 346) BILIRUBIN TOTAL 2.2 mg/dL 0.2-1.2 H (BEAKER) (test code = 377) SODIUM (BEAKER) (test 139 meq/L 136-145 code = 381) POTASSIUM (BEAKER) 4.2 meq/L 3.5-5.1 (test code = 379) CHLORIDE (BEAKER) 107 meq/L 98-107 (test code = 382) CO2 (BEAKER) (test 28 meq/L 22-29 code = 355) BLOOD UREA NITROGEN 28 mg/dL 7-21 H (BEAKER) (test code = 354) CREATININE (BEAKER) 1.21 mg/dL 0.57-1.25 (test code = 358) GLUCOSE RANDOM 138 mg/dL 70-105 H (BEAKER) (test code = 652) CALCIUM (BEAKER) 7.6 mg/dL 8.4-10.2 L (test code = 697) AST (SGOT) (BEAKER) 170 U/L 5-34 H (test code = 353) ALT (SGPT) (BEAKER) 129 U/L 6-55 H (test code = 347) EGFR (BEAKER) (test 44 mL/min/1.73 ESTIMA JACQUELYN GFR IS code = 1092) sq m NOT ACCURATE CREATININE CLEARANCE IN PREDICTING GLOMERULAR FILTRATION RATE . ESTIMATED GFR I S NOT APPLICABLE FOR DIALYSIS PATIEN TS. Area Development Consultant ID - ALIZA MSpecimen slightly [id number] 06:17:00 Test Item Value Reference Range Interpretation Comments MAGNESIUM (BEAKER) (test code = 2.7 mg/dL 1.6-2.6 H 627) Area Development Consultant ID - ALIZA MPROTHROMBIN TIME/[id number] 06:05:00 Test Item Value Reference Range Interpretation Comments PROTIME (BEAKER) 21.5 seconds 11.9-14.2 H (test code = 759) INR (BEAKER) (test 1.92 See_Comment [Automat ed message] code = 370) The system [employer] generated this result transmitted ref erence range: <=5.90. The reference range was not used to int erpret this result as normal/abnormal . Effective 03/14/2019: PT Reference Range ChangeNew: 11.9-14.2 Previous: 11.7- 14.7RECOMMENDED COUMADIN/WARFARIN INR THERAPY RANGESSTANDARD DOSE: 2.0-3.0 Includes: PROPHYLAXIS for venous thrombosis, systemic embolization; TREATMENT for venous thrombosis and/or pulmonary embolus.HIGH RISK: Target INR is2.5-3.5 for patients wiht mechanical heart valves.CBC W/PLT COUNT & AUTO [id number] 05:34:00 Test Item Value Reference Range Interpretation Comments WHITE BLOOD CELL COUNT (BEAKER) 6.4 K/ L 3.5-10.5 (test code = 775) RED BLOOD CELL COUNT (BEAKER) 2.65 M/ L 3.93-5.22 L (test code = 761) HEMOGLOBIN (BEAKER) (test code = 6.6 GM/DL 11.2-15.7 L 410) HEMATOCRIT (BEAKER) (test code = 23.1 % 34.1-44.9 L 411) MEAN CORPUSCULAR VOLUME (BEAKER) 87.2 fL 79.4-94.8 (test code = 753) MEAN CORPUSCULAR HEMOGLOBIN 24.9 pg 25.6-32.2 L (BEAKER) (test code = 751) MEAN CORPUSCULAR HEMOGLOBIN CONC 28.6 GM/DL 32.2-35.5 L (BEAKER) (test code = 752) RED CELL DISTRIBUTION WIDTH 19.3 % 11.7-14.4 H (BEAKER) (test code = 412) PLATELET COUNT (BEAKER) (test code 42 K/CU MM 150-450 L = 756) MEAN PLATELET VOLUME (BEAKER) 10.3 fL 9.4-12.3 (test code = 754) NUCLEATED RED BLOOD CELLS (BEAKER) 0 /100 WBC 0-0 (test code = 413) NEUTROPHILS RELATIVE PERCENT 80 % (BEAKER) (test code = 429) LYMPHOCYTES RELATIVE PERCENT 7 % (BEAKER) (test code = 430) MONOCYTES RELATIVE PERCENT 12 % (BEAKER) (test code = 431) EOSINOPHILS RELATIVE PERCENT 1 % (BEAKER) (test code = 432) BASOPHILS RELATIVE PERCENT 1 % (BEAKER) (test code = 437) NEUTROPHILS ABSOLUTE COUNT 5.11 K/ L 1.56-6.13 (BEAKER) (test code = 670) LYMPHOCYTES ABSOLUTE COUNT 0.43 K/ L 1.18-3.74 L (BEAKER) (test code = 414) MONOCYTES ABSOLUTE COUNT (BEAKER) 0.73 K/ L 0.24-0.36 H (test code = 415) EOSINOPHILS ABSOLUTE COUNT 0.03 K/ L 0.04-0.36 L (BEAKER) (test code = 416) BASOPHILS ABSOLUTE COUNT (BEAKER) 0.03 K/ L 0.01-0.08 (test code = 417) IMMATURE GRANULOCYTES-RELATIVE 1 % 0-1 PERCENT (BEAKER) (test code = 2801) Venous doppler legs [id number] 08:49:13Ejection FractionSLEH ECHO HEARTLAB MKCKESSON CPACSRight Impression1. There is no deep venous obstruction in the common femoral, profundafemoral, femoral, popliteal, posterior tibial or peroneal veins.2. There is no superficial venous obstruction in the great saphenous vein.Left Impression1. There is no deep venous obstruction in the common femoral, profundafemoral, femoral, popliteal, posterior tibial or peroneal veins.2. There is no superficial venous obstruction in the great saphenous vein. Conclusions Summary Venous duplex imaging and compression of the bilateral lower extremities were performed. The veins were adequately visualized. The bilateral venous systems were patent and compressiblewith no evidence of thrombus. The venous Doppler waveforms were pulsatile indicating possible elevated right heart filling pressure. Signature - Velocities are measured in cm/s ; Diameters are measured in cm Interface, External Ris In - 11/28/2020 8:49 AM CSTPV LAB - Lower Extremities DVT Study Demographics Patient Name FRANCO SINGLETARY Date of Study 11/27/2020 KEREN Age 70 Visit Number [id number] Gender Female Accession Number [id number] Date of 1950 Referring Melissa Yost Room Number 2423 Physician Rubber Goods Inspector Ilene Ramos T Interpreting Yulisa Gee, Physician ProcedureType of Study: Veins: Lower Extremities DVT Study, VENOUS DOPPLER LEG, BILATERAL. Indications for Study:Leg swelling.Patient Status:Routine.Study Location:Vascular Lab.Technical Quality:Adequate visualization.Risk FactorsHistory of Disease+ +----+ +!Diagnosis !Date!Comments !+ +----+ +!Hi story/Risk Factors:! !JOSE MANUEL, cirrhosis, stroke, former smoker (1995) !+ +----+ +ImpressionsRight Impression1. There is no deep venous obstruction in the common femoral, profundafemoral, femoral, popliteal, posterior tibial or peroneal veins.2. There is no superficial venous obstruction in the great saphenous vein.Left Impression1. There is no deepvenous obstruction in the common femoral, profundafemoral, femoral, popliteal, posterior tibial or peroneal veins.2. There is no superficial venous obstruction in the great saphenous vein. ConclusionsSummary Venous duplex imaging and compression of the bilateral lower extremities were performed. The veins were adequately visualized. The bilateral venous systems were patent and compressible with no evidence of thrombus. The venous Doppler waveforms were pulsatile indicating possible elevated rightheart filling pressure. Signature Velocities are measured in cm/s ; Diameters are measured in [facility] CALCIUM, [id number] 06:38:00 Test Item Value Reference Range Interpretation Comments CALCIUM IONIZED (BEAKER) (test 1.01 mmol/L 1.12-1.27 L code = 698) PH, BLOOD (BEAKER) (test code = 7.38 1810) B-TYPE NATRIURETIC FACTOR (BNP)2020-11-28 05:27:00 Test Item Value Reference Range Interpretation Comments B-TYPE NATRIURETIC PEPTIDE (BEAKER) 465 pg/mL 0-100 H (test code = 700) Area Development Consultant ID - EDASICOMPREHENSIVE METABOLIC [id number] 05:25:00 Test Item Value Reference Range Interpretation Comments TOTAL PROTEIN 5.2 gm/dL 6.0-8.3 L (BEAKER) (test code = 770) ALBUMIN (BEAKER) 2.3 g/dL 3.5-5.0 L (test code = 1145) ALKALINE PHOSPHATASE 112 U/L 40-150 (BEAKER) (test code = 346) BILIRUBIN TOTAL 1.8 mg/dL 0.2-1.2 H (BEAKER) (test code = 377) SODIUM (BEAKER) (test 138 meq/L 136-145 code = 381) POTASSIUM (BEAKER) 4.4 meq/L 3.5-5.1 (test code = 379) CHLORIDE (BEAKER) 105 meq/L 98-107 (test code = 382) CO2 (BEAKER) (test 28 meq/L 22-29 code = 355) BLOOD UREA NITROGEN 29 mg/dL 7-21 H (BEAKER) (test code = 354) CREATININE (BEAKER) 1.28 mg/dL 0.57-1.25 H (test code = 358) GLUCOSE RANDOM 121 mg/dL 70-105 H (BEAKER) (test code = 652) CALCIUM (BEAKER) 7.3 mg/dL 8.4-10.2 L (test code = 697) AST (SGOT) (BEAKER) 231 U/L 5-34 H (test code = 353) ALT (SGPT) (BEAKER) 137 U/L 6-55 H (test code = 347) EGFR (BEAKER) (test 41 mL/min/1.73 ESTIMA JACQUELYN GFR IS code = 1092) sq m NOT ACCURATE CREATININE CLEARANCE IN PREDICTING GLOMERULAR FILTRATION RATE . ESTIMATED GFR I S NOT APPLICABLE FOR DIALYSIS PATIEN TS. Area Development Consultant ID - EDASISpecimen slightly [id number] 05:22:00 Test Item Value Reference Range Interpretation Comments MAGNESIUM (BEAKER) (test code = 2.5 mg/dL 1.6-2.6 627) Area Development Consultant ID - [id number] 05:22:00 Test Item Value Reference Range Interpretation Comments PHOSPHORUS (BEAKER) (test code = 2.6 mg/dL 2.3-4.7 604) Area Development Consultant ID - EDASICREATINE KINASE (CK)2020-11-28 05:22:00 Test Item Value Reference Range Interpretation Comments CREATINE KINASE TOTAL (BEAKER) (test 3438 U/L 29-200 H code = 380) Area Development Consultant ID - EDASICALCIUM, [id number] 05:07:00 Test Item Value Reference Range Interpretation Comments CALCIUM IONIZED (BEAKER) (test 1.04 mmol/L 1.12-1.27 L code = 698) PH, BLOOD (BEAKER) (test code = 7.39 1810) PROTHROMBIN TIME/[id number] 05:06:00 Test Item Value Reference Range Interpretation Comments PROTIME (BEAKER) 20.3 seconds 11.9-14.2 H (test code = 759) INR (BEAKER) (test 1.79 See_Comment [Automat ed message] code = 370) The system [employer] generated this result transmitted ref erence range: <=5.90. The reference range was not used to int erpret this result as normal/abnormal . Effective 03/14/2019: PT Reference Range ChangeNew: 11.9-14.2 Previous: 11.7- 14.7RECOMMENDED COUMADIN/WARFARIN INR THERAPY RANGESSTANDARD DOSE: 2.0-3.0 Includes: PROPHYLAXIS for venous thrombosis, systemic embolization; TREATMENT for venous thrombosis and/or pulmonary embolus.HIGH RISK: Target INR is2.5-3.5 for patients wiht mechanical heart valves.CBC W/PLT COUNT & AUTO [id number] 05:00:00 Test Item Value Reference Range Interpretation Comments WHITE BLOOD CELL COUNT (BEAKER) 5.0 K/ L 3.5-10.5 (test code = 775) RED BLOOD CELL COUNT (BEAKER) 2.78 M/ L 3.93-5.22 L (test code = 761) HEMOGLOBIN (BEAKER) (test code = 7.2 GM/DL 11.2-15.7 L 410) HEMATOCRIT (BEAKER) (test code = 23.2 % 34.1-44.9 L 411) MEAN CORPUSCULAR VOLUME (BEAKER) 83.5 fL 79.4-94.8 (test code = 753) MEAN CORPUSCULAR HEMOGLOBIN 25.9 pg 25.6-32.2 (BEAKER) (test code = 751) MEAN CORPUSCULAR HEMOGLOBIN CONC 31.0 GM/DL 32.2-35.5 L (BEAKER) (test code = 752) RED CELL DISTRIBUTION WIDTH 19.0 % 11.7-14.4 H (BEAKER) (test code = 412) PLATELET COUNT (BEAKER) (test code 44 K/CU MM 150-450 L = 756) MEAN PLATELET VOLUME (BEAKER) 10.2 fL 9.4-12.3 (test code = 754) NUCLEATED RED BLOOD CELLS (BEAKER) 0 /100 WBC 0-0 (test code = 413) NEUTROPHILS RELATIVE PERCENT 75 % (BEAKER) (test code = 429) LYMPHOCYTES RELATIVE PERCENT 11 % (BEAKER) (test code = 430) MONOCYTES RELATIVE PERCENT 10 % (BEAKER) (test code = 431) EOSINOPHILS RELATIVE PERCENT 2 % (BEAKER) (test code = 432) BASOPHILS RELATIVE PERCENT 1 % (BEAKER) (test code = 437) NEUTROPHILS ABSOLUTE COUNT 3.76 K/ L 1.56-6.13 (BEAKER) (test code = 670) LYMPHOCYTES ABSOLUTE COUNT 0.55 K/ L 1.18-3.74 L (BEAKER) (test code = 414) MONOCYTES ABSOLUTE COUNT (BEAKER) 0.50 K/ L 0.24-0.36 H (test code = 415) EOSINOPHILS ABSOLUTE COUNT 0.12 K/ L 0.04-0.36 (BEAKER) (test code = 416) BASOPHILS ABSOLUTE COUNT (BEAKER) 0.03 K/ L 0.01-0.08 (test code = 417) IMMATURE GRANULOCYTES-RELATIVE 1 % 0-1 PERCENT (BEAKER) (test code = 2801) URINALYSIS W/ [id number] 21:23:00 Test Item Value Reference Range Interpretation Comments COLOR (BEAKER) (test code = 470) Yellow CLARITY (BEAKER) (test code = 469) Hazy SPECIFIC GRAVITY UA (BEAKER) (test 1.023 1.001-1.035 code = 468) PH UA (BEAKER) (test code = 467) 6.0 5.0-8.0 PROTEIN UA (BEAKER) (test code = 70 mg/dL Negative A 464) GLUCOSE UA (BEAKER) (test code = Negative Negative 365) KETONES UA (BEAKER) (test code = Negative Negative 371) BILIRUBIN UA (BEAKER) (test code = Negative Negative 462) BLOOD UA (BEAKER) (test code = Large Negative A 461) NITRITE UA (BEAKER) (test code = Negative Negative 465) LEUKOCYTE ESTERASE UA (BEAKER) Negative Negative (test code = 466) UROBILINOGEN UA (BEAKER) (test 0.2 mg/dL 0.2-1.0 code = 463) RBC UA (BEAKER) (test code = 519) 1 /HPF WBC UA (BEAKER) (test code = 520) 5 /HPF BACTERIA (BEAKER) (test code = Occasional 517) MUCUS (BEAKER) (test code = 1574) Rare SQUAMOUS EPITHELIAL (BEAKER) (test 4 /HPF code = 516) CASTS (BEAKER) (test code = 1579) 2 /LPF YEAST (BEAKER) (test code = 1585) Occasional SOURCE(BEAKER) (test code = 2795) Area Development Consultant ID - [auto]Area Development Consultant ID - techSODIUM, RANDOM [id number] 21:16:00 Test Item Value Reference Range Interpretation Comments SODIUM URINE (BEAKER) (test code = < meq/L 243) Reference Range: No NormalsOperator ID - BSUrea Nitrogen, random [id number] 21:13:00 Test Item Value Reference Range Interpretation Comments Urea Nitrogen, Ur 914 mg/dL (test code = 3095-7) DENA (test code = Reference Range: No DENA) NormalsOperator ID - BS [facility] AngelesCREATININE, RANDOM [id number] 21:13:00 Test Item Value Reference Range Interpretation Comments CREATININE URINE (BEAKER) (test 115.0 mg/dL code = 375) Reference Range: No NormalsOperator ID - BSPROTEIN, RANDOM [id number] 21:13:00 Test Item Value Reference Range Interpretation Comments PROTEIN, URINE (BEAKER) (test code = 74 mg/dL 0-14 H 1569) Area Development Consultant ID - BSUREA NITROGEN, RANDOM [id number] 21:13:00 Test Item Value Reference Range Interpretation Comments UREA NITROGEN URINE (BEAKER) (test 914 mg/dL code = 538) Reference Range: No NormalsOperator ID - BSCBC (HEMOGRAM ONLY)2020-11-27 14:49:00 Test Item Value Reference Range Interpretation Comments WHITE BLOOD CELL COUNT (BEAKER) 6.3 K/ L 3.5-10.5 (test code = 775) RED BLOOD CELL COUNT (BEAKER) 3.12 M/ L 3.93-5.22 L (test code = 761) HEMOGLOBIN (BEAKER) (test code = 8.0 GM/DL 11.2-15.7 L 410) HEMATOCRIT (BEAKER) (test code = 26.8 % 34.1-44.9 L 411) MEAN CORPUSCULAR VOLUME (BEAKER) 85.9 fL 79.4-94.8 (test code = 753) MEAN CORPUSCULAR HEMOGLOBIN 25.6 pg 25.6-32.2 (BEAKER) (test code = 751) MEAN CORPUSCULAR HEMOGLOBIN CONC 29.9 GM/DL 32.2-35.5 L (BEAKER) (test code = 752) RED CELL DISTRIBUTION WIDTH 18.8 % 11.7-14.4 H (BEAKER) (test code = 412) PLATELET COUNT (BEAKER) (test code 51 K/CU MM 150-450 L = 756) MEAN PLATELET VOLUME (BEAKER) 10.3 fL 9.4-12.3 (test code = 754) NUCLEATED RED BLOOD CELLS (BEAKER) 0 /100 WBC 0-0 (test code = 413) ECG 12 [id number] 14:03:54Interface, External Ris In - 11/27/2020 2:03 PM CSTVentricular Rate 68 BPMAtrial Rate 68 BPMQRS Duration 96 msQ-T Interval 442 msQTC Calculation(Bazett) 469 msR [place] 6 degreesT [place] 25 degreessinuspoor tracingConfirmed by MD Shelton Roberto ([id number]) on 11/27/2020 2:03:51 [facility]Per[facility] - Path [id number] 13:22:00 Test Item Value Reference Range Interpretation Comments Pathologist Review No circulating blasts. (test code = 2640) No significantly increased schistocytes. Pathologist: (test Constantine Linn, code = 2849) Javon(electronic signature) [facility]arePERIPHERAL [facility] - PATHOLOGIST REVIEW 2020-11-27 13:22:00 Test Item Value Reference Range Interpretation Comments PERIPHERAL SMR REVIEW No circulating blasts. (BEAKER) (test code = No significantly 2640) increased schistocytes. [id number] Constantine Linn, (BEAKER) (test code = MCatrina(electronic 2849) signature) 2D Echo W/Doppler(CW/PW/Color)2020-11-27 08:39:20Ejection FractionSLEH ECHO HEARTLAB MKCKESSON CPACSInterface, External Ris In - 11/27/2020 8:39 AM C STTransthoracic Echocardiography Report (TTE) Demographics Patient Name FRANCO SINGLETARY Date of Study 11/26/2020 KEREN Gender Female Visit Number [id number] Race Unknown Room Number 2423 Number Date of 1950 Referring PATEL SOLORIO Physician Age 70 year(s) SonSULEMA Martinez Interpreting Physician ANAMIKA Jernigan Procedure Type of Study TTE procedure:2DECHO W DOPPLER(CW/PW/COLOR) (MARCELLO) Indications:Shortness of breath.Clinical HistoryOBESITY CIRRHOSIS STROKEHGB 6.8HCT 22.7 %Height: 66 inches Weight: 99.79 kg (220 lbs) BSA: 2.08 m^2 BMI: 35.51 kg/m^2HR: 66 bpmBP: 119/59 mmHg Summary The left ventricle is chamber size (by PSLAX dimension) is normal (female - LVIDd 3.8-5.2cm) . All of the LV segments contract normally . Estimated LVEF by qualitative assessment is normal (>60%) . Grade 1 diastolic dysfunction (impaired relaxation and low- normal LA pressure). The right ventricular chamber size [...] Estimated LVEF by qualitative assessment is normal (>60%) . Grade 1 diastolic dysfunction (impaired relaxation and low-normal LA pressure). Left Atrium LA is well visualized. LA size is severely enlarged (>48 ml/m2) . Right Ventricle The right ventricular chamber size and systolic function are within normal limits. Right Atrium RA size is normal. Aortic Valve Normal AoV structure. There is no aortic stenosis. There is no aorti c regurgitation. Mitral Valve Normal MV structure. Mild mitral regurgitation. Tricuspid Valve TV structure is normal. A trace of tricuspid regurgitation. Estimated peak systolic PA pressure is cannot be determined due to inadequate TR velocity signal . Pulmonic Valve Normal PV structure and function by limited views and Doppler. Pericardium A small pericardial effusion is present . IVC/SVC/PA/PV/Pleural The estimated RA pressure by IVC dynamics5-10mmHg . Chambers/Structures Left Atrium LA Dimension: 4.51 [...] 23.99 cm Aorta Ao Root S of Stefanie.:2.86 cm Ascending Aorta: 3 cm Doppler/Quantitative Measurements [...] TR Velocity: 3.1 m/s TR Gradient: 38.54 mmHgAdventist Health TulareCREATINE KINASE (CK)2020-11-27 06:15:00 Test Item Value Reference Range Interpretation Comments CREATINE KINASE TOTAL (BEAKER) (test 4837 U/L 29-200 H code = 380) Area Development Consultant ID - SMOperator ID - SMHepatitis B surface [id number] 06:07:00 Test Item Value Reference Range Interpretation Comments Hep B S Ab (test code <8.0 See_Comment [Auto mated = 10493-4) message] The system which generated this result transmit jacquelyn reference range : <8.0 mIU/mL. Th e reference range was not used to interpret this result as normal/abnormal . DENA (test code = DENA) Area Development Consultant ID - ALIZA M Lab Interpretation Normal (test code = 83331-6) [facility]areAlpha fetoprotein (AFP), tumor [id number] 06:07:00 Test Item Value Reference Range Interpretation Comments Alpha-Fetoprotein <2.0 See_Comment [Automate d (test code = 1834-1) message ] The system which generated this result transmit jacquelyn reference range : <10.0 ng/mL. Th e reference range was not used to interpret this result as normal/abnormal . DENA (test code = DENA) Area Development Consultant ID - ALIZA M Lab Interpretation Normal (test code = 75626-5) [facility]areALPHA FETOPROTEIN (AFP), TUMOR [id number] 06:07:00 Test Item Value Reference Range Interpretation Comments ALPHA-FETOPROTEIN (BEAKER) (test code < ng/mL <10.0 = 1094) Area Development Consultant ID - ALIZA MHEPATITIS B SURFACE [id number] 06:07:00 Test Item Value Reference Range Interpretation Comments HEPATITIS B SURFACE ANTIBODY < mIU/mL <8.0 (BEAKER) (test code = 647) Area Development Consultant ID - ALIZA [facility] Centeropon [id number] 05:59:00 Test Item Value Reference Range Interpretation Comments Troponin I (test code = 0.19 ng/mL 0-0.03 H 66003-8) DENA (test code = DENA) Troponin I (TnI) levels must be interpreted in the context of the presenting symptoms and the clinical findings. Elevated TnI levels indicate myocardial damage, but are not specific for ischemic heart disease. Elevated TnI levels are seen in patients with other cardiac conditions (including myocarditis and congestive heart failure), and slight TnI elevations occur in patients with other conditions, including sepsis, renal failure, acidosis, acute neurological disease, and persistent tachyarrhythmia.Opera tor ID - SM Lab Interpretation (test Abnormal code = 22120-3) [facility] [id number] 05:59:00 Test Item Value Reference Range Interpretation Comments TROPONIN I (BEAKER) (test code = 0.19 ng/mL 0.00-0.03 H 397) Troponin I (TnI) levels must be interpreted in the context of the presenting symptoms and the clinical findings. Elevated TnI levels indicate myocardial damage, but are not specific for ischemic heart disease. Elevated TnI levels are seen in patients with other cardiac conditions (including myocarditis and congestive heart failure), and slight TnI elevations occur in patients with other conditions, including sepsis, renal failure, acidosis, acute neurological disease, and persistent tachyarrhythmia.Area Development Consultant ID - SMCOMPREHENSIVE METABOLIC [id number] 05:50:00 Test Item Value Reference Range Interpretation Comments TOTAL PROTEIN 5.2 gm/dL 6.0-8.3 L (BEAKER) (test code = 770) ALBUMIN (BEAKER) 2.2 g/dL 3.5-5.0 L (test code = 1145) ALKALINE PHOSPHATASE 126 U/L 40-150 (BEAKER) (test code = 346) BILIRUBIN TOTAL 1.6 mg/dL 0.2-1.2 H (BEAKER) (test code = 377) SODIUM (BEAKER) (test 138 meq/L 136-145 code = 381) POTASSIUM (BEAKER) 3.9 meq/L 3.5-5.1 (test code = 379) CHLORIDE (BEAKER) 104 meq/L 98-107 (test code = 382) CO2 (BEAKER) (test 30 meq/L 22-29 H code = 355) BLOOD UREA NITROGEN 26 mg/dL 7-21 H (BEAKER) (test code = 354) CREATININE (BEAKER) 1.36 mg/dL 0.57-1.25 H (test code = 358) GLUCOSE RANDOM 113 mg/dL 70-105 H (BEAKER) (test code = 652) CALCIUM (BEAKER) 7.6 mg/dL 8.4-10.2 L (test code = 697) AST (SGOT) (BEAKER) 298 U/L 5-34 H (test code = 353) ALT (SGPT) (BEAKER) 143 U/L 6-55 H (test code = 347) EGFR (BEAKER) (test 38 mL/min/1.73 ESTIMA JACQUELYN GFR IS code = 1092) sq m NOT ACCURATE CREATININE CLEARANCE IN PREDICTING GLOMERULAR FILTRATION RATE . ESTIMATED GFR I S NOT APPLICABLE FOR DIALYSIS PATIEN TS. Area Development Consultant ID - SMPROTHROMBIN TIME/[id number] 05:42:00 Test Item Value Reference Range Interpretation Comments PROTIME (BEAKER) 19.7 seconds 11.9-14.2 H (test code = 759) INR (BEAKER) (test 1.72 See_Comment [Automat ed message] code = 370) The system [employer] generated this result transmitted ref erence range: <=5.90. The reference range was not used to int erpret this result as normal/abnormal . Effective 03/14/2019: PT Reference Range ChangeNew: 11.9-14.2 Previous: 11.7- 14.7RECOMMENDED COUMADIN/WARFARIN INR THERAPY RANGESSTANDARD DOSE: 2.0-3.0 Includes: PROPHYLAXIS for venous thrombosis, systemic embolization; TREATMENT for venous thrombosis and/or pulmonary embolus.HIGH RISK: Target INR is2.5-3.5 for patients wiht mechanical heart valves.[id number] 05:41:00 Test Item Value Reference Range Interpretation Comments MAGNESIUM (BEAKER) (test code = 2.3 mg/dL 1.6-2.6 627) Area Development Consultant ID - [id number] 05:41:00 Test Item Value Reference Range Interpretation Comments PHOSPHORUS (BEAKER) (test code = 3.2 mg/dL 2.3-4.7 604) Area Development Consultant ID - SMB-TYPE NATRIURETIC FACTOR (BNP)2020-11-27 05:33:00 Test Item Value Reference Range Interpretation Comments B-TYPE NATRIURETIC PEPTIDE (BEAKER) 210 pg/mL 0-100 H (test code = 700) Area Development Consultant ID - SMCALCIUM, [id number] 05:27:00 Test Item Value Reference Range Interpretation Comments CALCIUM IONIZED (BEAKER) (test 1.04 mmol/L 1.12-1.27 L code = 698) PH, BLOOD (BEAKER) (test code = 7.33 1810) Reticulocyte [id number] 05:09:00 Test Item Value Reference Range Interpretation Comments % Retic (test code = 2.3 % 0.5-1.7 H 07003-6) DENA (test code = DENA) Area Development Consultant ID - [id number] Lab Interpretation (test Abnormal code = 70800-5) [facility]areRETICULOCYTE [id number] 05:09:00 Test Item Value Reference Range Interpretation Comments RETICULOCYTE COUNT PCT (BEAKER) (test 2.3 % 0.5-1.7 H code = 575) Area Development Consultant ID - [id number] W/PLT COUNT & AUTO [id number] 05:09:00 Test Item Value Reference Range Interpretation Comments WHITE BLOOD CELL COUNT (BEAKER) 4.7 K/ L 3.5-10.5 (test code = 775) RED BLOOD CELL COUNT (BEAKER) 2.50 M/ L 3.93-5.22 L (test code = 761) HEMOGLOBIN (BEAKER) (test code = 6.3 GM/DL 11.2-15.7 L 410) HEMATOCRIT (BEAKER) (test code = 21.4 % 34.1-44.9 L 411) MEAN CORPUSCULAR VOLUME (BEAKER) 85.6 fL 79.4-94.8 (test code = 753) MEAN CORPUSCULAR HEMOGLOBIN 25.2 pg 25.6-32.2 L (BEAKER) (test code = 751) MEAN CORPUSCULAR HEMOGLOBIN CONC 29.4 GM/DL 32.2-35.5 L (BEAKER) (test code = 752) RED CELL DISTRIBUTION WIDTH 19.7 % 11.7-14.4 H (BEAKER) (test code = 412) PLATELET COUNT (BEAKER) (test code 44 K/CU MM 150-450 L = 756) MEAN PLATELET VOLUME (BEAKER) 10.2 fL 9.4-12.3 (test code = 754) NUCLEATED RED BLOOD CELLS (BEAKER) 0 /100 WBC 0-0 (test code = 413) NEUTROPHILS RELATIVE PERCENT 73 % (BEAKER) (test code = 429) LYMPHOCYTES RELATIVE PERCENT 13 % (BEAKER) (test code = 430) MONOCYTES RELATIVE PERCENT 11 % (BEAKER) (test code = 431) EOSINOPHILS RELATIVE PERCENT 3 % (BEAKER) (test code = 432) BASOPHILS RELATIVE PERCENT 1 % (BEAKER) (test code = 437) NEUTROPHILS ABSOLUTE COUNT 3.44 K/ L 1.56-6.13 (BEAKER) (test code = 670) LYMPHOCYTES ABSOLUTE COUNT 0.61 K/ L 1.18-3.74 L (BEAKER) (test code = 414) MONOCYTES ABSOLUTE COUNT (BEAKER) 0.50 K/ L 0.24-0.36 H (test code = 415) EOSINOPHILS ABSOLUTE COUNT 0.12 K/ L 0.04-0.36 (BEAKER) (test code = 416) BASOPHILS ABSOLUTE COUNT (BEAKER) 0.03 K/ L 0.01-0.08 (test code = 417) IMMATURE GRANULOCYTES-RELATIVE 0 % 0-1 PERCENT (BEAKER) (test code = 2801) MR, ABDOMEN, [id number] 20:05:00DR JALALReferring: Dr. Eric Champion portal vein clot and hccUnlisted Reason for Exam - Click Yes and Enter Reason Below->NoELAYNE [facility]Name[facility] : 1950 Sex: FFINAL REPORT TECHNIQUE: MRI of the abdomen WITHOUT and WITH int ravenous contrast. INDICATION: Portal hypertension. COMPARISON: Chest CT from 09/10/2019. MRI from 01/19/2018 FINDINGS: LOWER THORAX: There are findings of pulmonary fibrosis with for better assessed onthe prior chest CT. Trace left pleural effusion. LIVER: Nodular, cirrhotic liver. No focal hepatic lesions. BILIARY: Stones layer in the gallbladder. No gallbladder distention. No biliary ductal dilatation or filling defect.SPLEEN: No splenomegaly. There are multiple wedge-shaped defects in the spleen, likely related to prior splenic infarcts. PANCREAS: No focal masses or ductal dilatation. There areat least five cystic lesions in the pancreas which measure up to 1.2 cm in the pancreatic head. A sofy ority of these were not seen on the prior examination. However, the largest is unchanged. ADRENALS: No adrenal nodules.KIDNEYS/URETERS: No hydronephrosis or solid mass lesions. PERITONEUM/RETROPERITONEUM: Large volume ascites.LYMPH NODES: No lymphadenopathy.VESSELS: Accessory left hepatic artery originates from the left gastric artery. A periumbilical vein is recanalized. Small esophageal varices. The main portal vein is patent and measures 1.4 cm in diameter. GI TRACT: No distention or wall thickening. BONES AND SOFT TISSUES: Diffuse anasarca. IMPRESSION: 1.No suspicious focal hepatic lesion. 2.Cirrhosis with sequelae of portal hypertension including splenomegaly, large volume ascites, and smallesophageal varices. 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 4.Multiple pancreatic cystic lesions measure up to 1.2 cm. This largest cyst is unchanged, but several other smaller lesions are new. 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 A follow-up MRI of the abdomen with and without intervenous contrast with MRCP is recommended in one year to document stability. 5.Cholelithiasis. Signed: Tonya Cadena Verified Date/Time: 11/26/2020 20:05:06 Reading Location: [address] Body Reading Room MR abdomen without & with IV [id number] 20:05:00Interface, External Ris In - 11/26/2020 8:07 PM CSTFINAL REPORT TECHNIQUE: MRI of the abdomen WITHOUT and WITH intravenous contrast. INDICATION: Portal hypertension. COMPARISON:Chest CT from 09/10/2019. MRI from 01/19/2018 FINDINGS: LOWER THORAX: There are findings of pulmonaryfibrosis with for better assessed on the prior chest CT. Trace left pleural effusion. LIVER: Nodular, cirrhotic liver. No focal hepatic lesions. BILIARY: Stones layer in the gallbladder. No gallbladderdistention. No biliary ductal dilatation or filling defect.SPLEEN: No splenomegaly. There are multiple wedge-shaped defects in the spleen, likely related to prior splenic infarcts. PANCREAS: No focal masses or ductal dilatation. There are at least five cystic lesions in the pancreas which measure up to 1.2 cm in the pancreatic head. A majority of these were not seen on the prior examination. However,the largest is unchanged. ADRENALS: No adrenal nodules.KIDNEYS/URETERS: No hydronephrosis or solid mass lesions. PERITONEUM/RETROPERITONEUM: Large volume ascites.LYMPH NODES: No lymphadenopathy.VESSELS: Accessory left hepatic artery originates from the left gastric artery. A periumbilical vein is recanalized. Small esophageal varices. The main portal vein is patent and measures 1.4 cm in diameter. GITRACT: No distention or wall thickening. BONES AND SOFT TISSUES: Diffuse anasarca. IMPRESSION: 1.Nosuspicious focal hepatic lesion. 2.Cirrhosis with sequelae of portal hypertension including splenomegaly, large volume ascites, and small esophageal varices. 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 4.Multiple pancreatic cystic lesions measure up to 1.2 cm. This largest cyst is unchanged, but several other smaller lesions are new. 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 A follow-up MRI of the abdomen with and without intervenous contrast with MRCP is recommended in one year to document stability. 5.Cholelithiasis. Signed: Tonya Cadena MDReport Verified Date/Time: 11/26/2020 20:05:06 Reading Location: [facility] [address] [address] Body Reading [facility])2020-11-26 18:12:00 Test Item Value Reference Range Interpretation Comments SARS-COV2/RT-PCR (test Negative Not Detected, Negative, code = 3893397) See external report for linked test SARS-COV-2 PERFORMING LAB [facility] (test code = 9863412) Negative result for this test determines that SARS-CoV-2 RNA was not present in the specimen above the Limit of Detection (LOD). However, Negative results do not preclude SARS-CoV-2 infection and should not be used as the sole basis for treatment or patient management decisions. Negative results mustbe combined with clinical observations, patient history, and epidemiological information. A false negative result may occur if a specimen is improperly collected, transported or handled. A false negative result should be considered if patient's recent exposures or clinical presentation indicate that COVID-19 (SARS-CoV-2) is likely and diagnostic tests for other causes of illness are negative. Re-testing should be considered in cases of suspected false negatives.The limit of detection for this assay is 800 copies/mL.This SARS CoV-2 test is a real-time RT-PCR test intended for the qualitative detection of nucleic acid from SARS-CoV-2 in a nasopharyngeal swab specimen collected from individuals susp ected of COVID-19 by their healthcare provider.This test has not been Food and Drug [...] is revoked under Section 564(g) of the Act.Fact Sheet for Healthcare Providers:https://www.[employer].GetPromotd/sites/default/files/product/documents/Fact_Shee q_VW_Xzrksvdjq_Ajlk_QJQP-IoL-0.pdfFact Sheet for Healthcare Patients:https://www.[employer].com/sites/default/files/product/ documents/Jowv_Cowfl_Veqkjfsc_Xioq_QHXQ-JsT-7.pdfPerforming Laboratory:[facility], [place] [id number] 17:43:00 Test Item Value Reference Range Interpretation Comments Haptoglobin (test code = 52 mg/dL 14-258 4542-7) DENA (test code = DENA) Area Development Consultant ID - BS Lab Interpretation (test Normal code = 58951-7) [facility]21-[facility] 17:43:00 Test Item Value Reference Range Interpretation Comments HAPTOGLOBIN (BEAKER) (test code = 52 mg/dL 14-258 366) Area Development Consultant ID - BSVitamin B12 and [id number] 16:08:00 Test Item Value Reference Range Interpretation Comments Vitamin B12 (test 659 pg/mL 213-816 code = 2132-9) Folate (test code = 12.20 ng/mL See_Comment [Automa jacquelyn 2284-8) message] The system which generated this result transmit jacquelyn reference range : >=7.00. The reference range was not used to interpret this result as normal/abnormal . DENA (test code = DENA) Area Development Consultant ID - BS Lab Interpretation Normal (test code = 05496-2) [facility]ITAM[facility] B12 AND [id number] 16:08:00 Test Item Value Reference Range Interpretation Comments VITAMIN B12 659 pg/mL 213-816 (BEAKER) (test code = 774) FOLATE (BEAKER) 12.20 ng/mL See_Comment [Automated message] (test code = 362) The system which generated this result transmitted ref erence range: >=7.00. The reference range was not used to interpr et this result as normal/abnormal . Area Development Consultant ID - BSVitamin [id number] 15:58:00 Test Item Value Reference Range Interpretation Comments Vitamin B12 (test code = 623 pg/mL 979-299 2494-9) DENA (test code = DENA) Area Development Consultant ID - BS Lab Interpretation (test Normal code = 53555-1) [facility]areFerritin2021-02-10 15:58:00 Test Item Value Reference Range Interpretation Comments Ferritin (test code = 18.49 ng/mL 5-275 2276-4) DENA (test code = DENA) Area Development Consultant ID - BS Lab Interpretation (test Normal code = 04543-0) [facility]areTSH/Free T4 If [id number] 15:58:00 Test Item Value Reference Range Interpretation Comments TSH (test code = 1.498 See_Comment [Automated 41414-4) message] The system which generated this result transmit jacquelyn reference range : 0.350 - 4.940 uIU/mL. The reference range was not used to interpret this result as normal/abnormal . DENA (test code = DENA) Area Development Consultant ID - BS Lab Interpretation Normal (test code = 98671-6) [facility]areVITAMIN [id number] 15:58:00 Test Item Value Reference Range Interpretation Comments VITAMIN B12 (BEAKER) (test code = 623 pg/mL 213-816 774) Area Development Consultant ID - [id number] 15:58:00 Test Item Value Reference Range Interpretation Comments FERRITIN (BEAKER) (test code = 18.49 ng/mL 5.00-275.00 361) Area Development Consultant ID - BSTSH/FREE T4 IF [id number] 15:58:00 Test Item Value Reference Range Interpretation Comments THYROID STIMULATING HORMONE 1.498 uIU/mL 0.350-4.940 (BEAKER) (test code = 772) Area Development Consultant ID - BSTROPONIN [id number] 15:38:00 Test Item Value Reference Range Interpretation Comments TROPONIN I (BEAKER) (test code = 0.18 ng/mL 0.00-0.03 H 397) Troponin I (TnI) levels must be interpreted in the context of the presenting symptoms and the clinical findings. Elevated TnI levels indicate myocardial damage, but are not specific for ischemic heart disease. Elevated TnI levels are seen in patients with other cardiac conditions (including myocarditis and congestive heart failure), and slight TnI elevations occur in patients with other conditions, including sepsis, renal failure, acidosis, acute neurological disease, and persistent tachyarrhythmia.Area Development Consultant ID - BSIron, TIBC, % sat. (without ferritin)2020-11-26 15:31:00 Test Item Value Reference Range Interpretation Comments Iron (test code = 2498-4) 17.0 ug/dL 40-160 L TIBC (test code = 2500-7) 228 ug/dL 250-450 L Iron % Saturation (test code 7 % 20-55 L = 2502-3) DENA (test code = DENA) Area Development Consultant ID - BS Lab Interpretation (test Abnormal code = 62552-8) [facility]IRON, TIBC, % SAT. (WITHOUT FERRITIN)2020-11-26 15:31:00 Test Item Value Reference Range Interpretation Comments IRON (BEAKER) (test code = 547) 17.0 ug/dL 40.0-160.0 L TOTAL IRON BINDING CAPACITY 228 ug/dL 250-450 L (BEAKER) (test code = 769) IRON % SATURATION (2) (BEAKER) 7 % 20-55 L (test code = 2590) Area Development Consultant ID - BSLactate dehydrogenase (LDH)2020-11-26 15:28:00 Test Item Value Reference Range Interpretation Comments LDH (test code = 2532-0) 555 U/L 125-220 H DENA (test code = DENA) Area Development Consultant ID - BS Lab Interpretation (test Abnormal code = 07419-1) [facility]areLACTATE DEHYDROGENASE (LDH)2020-11-26 15:28:00 Test Item Value Reference Range Interpretation Comments LACTATE DEHYDROGENASE (BEAKER) (test 555 U/L 125-220 H code = 635) Area Development Consultant ID - BSRETICULOCYTE [id number] 14:12:00 Test Item Value Reference Range Interpretation Comments RETICULOCYTE COUNT PCT (BEAKER) (test 2.7 % 0.5-1.7 H code = 575) Area Development Consultant ID - [id number], PELVIS, 1 OR 2 [id number] 10:30:00DR Wellserring: Dr. Eric Morel for exam:->LEG PAINBLReason for exam:->HIP PAINBLShouldthis be performed at the bedside?->Yes [facility] 1950 Sex: FFINAL REPORT CLINICAL HISTORY: LEG PAINHIP PAIN TECHNIQUE: AP pelvis COMPARISON: None IMPRESSION: The pelvis appears intact without evidence of fracture or dislocation on the single frontal view. Signed: Sangeeta Garces Verified Date/Time: 11/26/2020 10:30:11 Reading Location: [facility] Radiology Reading Room RAD, CHEST, 1 VIEW, NON [id number] 10:30:00DR JALALReferring: Dr. Eric Morel for exam:->peripheral edemaBLReason for exam:->BLShouldthis be performed at the bedside?->Yes [facility] : 1950 Sex: FFINAL REPORT CLINICAL HISTORY: peripheral edema TECHNIQUE: 1 view of the chest. COMPARISON: 09/25/2019 IMPRESSION: Diffuse bilateral interstitial infiltrates are similar versus slightly increased in prominence. Subpulmonic pleural effusions cannot be excluded. The cardiomediastinal silhouette is magnified by technique. Elevation of the right hemidiaphragm is again seen. Signed: Sangeeta Garces Verified Date/Time: 11/26/2020 10:30:51 Reading Location: [facility] Radiology Reading Room XR pelvis 1 or 2 [id number] 10:30:00Interface, External Ris In - 11/26/2020 10:32 AM CSTFINAL REPORT CLINICAL HISTORY: LEG PAINHIP PAIN TECHNIQUE: AP pelvis COMPARISON: None IMPRESSION: The pelvis appears intact without evidence of fracture or dislocation on the single frontal view. Signed: Sangeeta Garces MDReport Verified Date/Time: 11/26/2020 10:30:11 Reading Location: [facility] Radiology [facility] [id number] 10:27:00 Test Item Value Reference Range Interpretation Comments TROPONIN I (BEAKER) (test code = 0.06 ng/mL 0.00-0.03 H 397) Troponin I (TnI) levels must be interpreted in the context of the presenting symptoms and the clinical findings. Elevated TnI levels indicate myocardial damage, but are not specific for ischemic heart disease. Elevated TnI levels are seen in patients with other cardiac conditions (including myocarditis and congestive heart failure), and slight TnI elevations occur in patients with other conditions, including sepsis, renal failure, acidosis, acute neurological disease, and persistent tachyarrhythmia.Area Development Consultant ID - EDASIB-TYPE NATRIURETIC FACTOR (BNP)2020-11-26 10:26:00 Test Item Value Reference Range Interpretation Comments B-TYPE NATRIURETIC PEPTIDE (BEAKER) 114 pg/mL 0-100 H (test code = 700) Area Development Consultant ID - EDASICOMPREHENSIVE METABOLIC [id number] 10:23:00 Test Item Value Reference Range Interpretation Comments TOTAL PROTEIN 6.0 gm/dL 6.0-8.3 (BEAKER) (test code = 770) ALBUMIN (BEAKER) 2.2 g/dL 3.5-5.0 L (test code = 1145) ALKALINE PHOSPHATASE 164 U/L 40-150 H (BEAKER) (test code = 346) BILIRUBIN TOTAL 1.4 mg/dL 0.2-1.2 H (BEAKER) (test code = 377) SODIUM (BEAKER) (test 135 meq/L 136-145 L code = 381) POTASSIUM (BEAKER) 3.9 meq/L 3.5-5.1 (test code = 379) CHLORIDE (BEAKER) 101 meq/L 98-107 (test code = 382) CO2 (BEAKER) (test 28 meq/L 22-29 code = 355) BLOOD UREA NITROGEN 22 mg/dL 7-21 H (BEAKER) (test code = 354) CREATININE (BEAKER) 1.37 mg/dL 0.57-1.25 H (test code = 358) GLUCOSE RANDOM 125 mg/dL 70-105 H (BEAKER) (test code = 652) CALCIUM (BEAKER) 7.5 mg/dL 8.4-10.2 L (test code = 697) AST (SGOT) (BEAKER) 367 U/L 5-34 H (test code = 353) ALT (SGPT) (BEAKER) 161 U/L 6-55 H (test code = 347) EGFR (BEAKER) (test 38 mL/min/1.73 ESTIMA JACQUELYN GFR IS code = 1092) sq m NOT ACCURATE CREATININE CLEARANCE IN PREDICTING GLOMERULAR FILTRATION RATE . ESTIMATED GFR I S NOT APPLICABLE FOR DIALYSIS PATIEN TS. Area Development Consultant ID - EDASICBC W/PLT COUNT & AUTO [id number] 10:09:00 Test Item Value Reference Range Interpretation Comments WHITE BLOOD CELL COUNT (BEAKER) 6.2 K/ L 3.5-10.5 (test code = 775) RED BLOOD CELL COUNT (BEAKER) 2.72 M/ L 3.93-5.22 L (test code = 761) HEMOGLOBIN (BEAKER) (test code = 6.8 GM/DL 11.2-15.7 L 410) HEMATOCRIT (BEAKER) (test code = 22.7 % 34.1-44.9 L 411) MEAN CORPUSCULAR VOLUME (BEAKER) 83.5 fL 79.4-94.8 (test code = 753) MEAN CORPUSCULAR HEMOGLOBIN 25.0 pg 25.6-32.2 L (BEAKER) (test code = 751) MEAN CORPUSCULAR HEMOGLOBIN CONC 30.0 GM/DL 32.2-35.5 L (BEAKER) (test code = 752) RED CELL DISTRIBUTION WIDTH 20.5 % 11.7-14.4 H (BEAKER) (test code = 412) PLATELET COUNT (BEAKER) (test code 57 K/CU MM 150-450 L = 756) MEAN PLATELET VOLUME (BEAKER) 10.8 fL 9.4-12.3 (test code = 754) NUCLEATED RED BLOOD CELLS (BEAKER) 0 /100 WBC 0-0 (test code = 413) NEUTROPHILS RELATIVE PERCENT 84 % (BEAKER) (test code = 429) LYMPHOCYTES RELATIVE PERCENT 6 % (BEAKER) (test code = 430) MONOCYTES RELATIVE PERCENT 10 % (BEAKER) (test code = 431) EOSINOPHILS RELATIVE PERCENT 0 % (BEAKER) (test code = 432) BASOPHILS RELATIVE PERCENT 0 % (BEAKER) (test code = 437) NEUTROPHILS ABSOLUTE COUNT 5.16 K/ L 1.56-6.13 (BEAKER) (test code = 670) LYMPHOCYTES ABSOLUTE COUNT 0.35 K/ L 1.18-3.74 L (BEAKER) (test code = 414) MONOCYTES ABSOLUTE COUNT (BEAKER) 0.60 K/ L 0.24-0.36 H (test code = 415) EOSINOPHILS ABSOLUTE COUNT 0.01 K/ L 0.04-0.36 L (BEAKER) (test code = 416) BASOPHILS ABSOLUTE COUNT (BEAKER) 0.02 K/ L 0.01-0.08 (test code = 417) IMMATURE GRANULOCYTES-RELATIVE 1 % 0-1 PERCENT (BEAKER) (test code = 2801) [id number] 00:00:00Ordered by an unspecified provider.[facility]2D Echo W/Doppler(CW/PW/Color)2020-10-24 10:53:36Ejection FractionSLEH ECHO HEARTLAB MKCKESSON CPACSInterface, External Ris In - 10/24/2020 10:53 AM CSTTransthoracic Echocardiography Report (TTE) Demographics Patient Name FRANCO SINGLETARY Date of Study 10/24/2020 KEREN Gender Female Visit Number [id number] Race Unknown Room Number 1011 Number Date of 1950 Referring Katrin Michaud Physician Age 70 year(s) 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 IV saline contrast with delayed imaging demonstrates intra pulmonic shunting. A negative IV agitated saline study does not definitively rule out aPFO in situations of poor patient Valsalva effort (and high LA pressure), excessive competitive IVC v enous flow not visible on TTE and with [...] saline contrast injection was negative for a PFO(patent foramen ovale) at rest and post Valsalva. [...] finding in at least 30% of individuals. Aortic Valve Normal AoV s tructure. There is no aortic stenosis. There is no aortic regurgitation. Mitral Valve Normal MV structure. Mild mitral regurgitation. Tricuspid Valve TV structure is normal. A trace of tricuspid regurgitation. Estimated peak systolic PA pressure is cannot be determined due to inadequate TR velocity signal . Pulmonic Valve Normal PV structure and function by limited views and Doppler. Aorta Aortic root size (SInus of Valsalva diameter) is normal . Proximal ascending aorta size is normal . Pericardium A small pericardial effusion is present . IVC/SVC/PA/PV/Pleural The estimated RA pressure by IVC dynamics 5-10mmHg . Chambers/Structures Left Atrium LA Volume: 98.78 ml LA Area: 26.38 cm^2 LA Vol. Index: 50 ml/m^2 Left Ventricle LVIDd: 5.35 cm LVEDV:153.66 mlLVIDs: 3.09 cm LV Septum Diastolic: 1.07 cm [...] mmHg Mean Gradient: 6.16 mmHg AV Area (con tinuity): 2.2 cm^2 AV VTI: 37.95 cm AV DVI: 0.69 LVOT Peak Velocity: 1.25 m/s Peak Gradient: 6.28 mmHg Mean Velocity: 0.81 m/s Mean Gradient: 3.12 mmHg LVOT Diameter: 2.01 cm LVOT VTI: 26.32 cm LVOT Area: 3.17 cm^2 LVOT SV:83.47 ml LVOT CO: 6.51 l/min LVOT CI: 3.27 l/min/m^2CProv[facility] CampusRPR2021-01-08 10:47:00 Test Item Value Reference Range Interpretation Comments RPR (test code = 73662-1) Nonreactive Nonreactive Lab Interpretation (test code = Normal 79438-8) [facility]RPR2021-01-08 10:47:00 Test Item Value Reference Range Interpretation Comments RPR SCREEN (BEAKER) (test code = Nonreactive Nonreactive 420) Hemoglobin [id number] 08:19:00 Test Item Value Reference Range Interpretation Comments Hemoglobin A1C (test code = 4548-4) 4.4 % 4.3-6.1 Lab Interpretation (test code = Normal 87889-9) [facility]areHEMOGLOBIN [id number] 08:19:00 Test Item Value Reference Range Interpretation Comments HEMOGLOBIN A1C (BEAKER) (test code = 4.4 % 4.3-6.1 368) TSH/FREE T4 IF [id number] 07:41:00 Test Item Value Reference Range Interpretation Comments THYROID STIMULATING HORMONE 1.836 uIU/mL 0.350-4.940 (BEAKER) (test code = 772) Area Development Consultant ID - EDASIVITAMIN B12 AND [id number] 07:41:00 Test Item Value Reference Range Interpretation Comments VITAMIN B12 (BEAKER) (test code = 356 pg/mL 213-816 774) FOLATE (BEAKER) (test code = 362) 12.40 ng/mL >=7.00 Area Development Consultant ID - EDASISARS-COV2/RT-PCR ([facility])2020-10-24 07:10:00 Test Item Value Reference Range Interpretation Comments SARS-COV2/RT-PCR (test Negative Not Detected, Negative, code = 8476338) See external report for linked test SARS-COV-2 PERFORMING LAB [facility] (test code = 5302543) Negative result for this test determines that SARS-CoV-2 RNA was not present in the specimen above the Limit of Detection (LOD). However, Negative results do not preclude SARS-CoV-2 infection and should not be used as the sole basis for treatment or patient management decisions. Negative results mustbe combined with clinical observations, patient history, and epidemiological information. A false negative result may occur if a specimen is improperly collected, transported or handled. A false negative result should be considered if patient's recent exposures or clinical presentation indicate that COVID-19 (SARS-CoV-2) is likely and diagnostic tests for other causes of illness are negative. Re-testing should be considered in cases of suspected false negatives.The limit of detection for this assay is 100 copies/mL.This SARS CoV-2 test is a real-time RT-PCR test intended for the qualitative detection of nucleic acid from SARS-CoV-2 in a nasopharyngeal swab specimen collected from individuals susp ected of COVID-19 by their healthcare provider.This test has not been Food and Drug [...] is revoked under Section 564(g) of the Act.Testing was performed using the Cheema SARS-CoV-2 assay.Fact Sheet for Healthcare Providers:https://www.[employer].cheema/derrick/ JW_DBOU-GfQ-2_GHS_Xzgv_Vuobu_71-141385.pdfFact Sheet for Healthcare Patients:https://www.[employer] lauryn/derrick/MR_HQQQ-IyL-1_Hxouxuz_Vtlk_Ymtdq_UH_80-005179N0.pdfPerforming Laboratory:[facility] [place] [address] Lipid [id number] 06:47:00 Test Item Value Reference Range Interpretation Comments Triglycerides (test 58 mg/dL code = 2571-8) Cholesterol (test code 135 mg/dL = 2093-3) HDL (test code = 36 mg/dL 5-9) LDL Calculated (test 87 mg/dL code = 79624-6) DENA (test code = DENA) Triglyceride Reference Range: Low Risk <150 Borderline 150-199 High Risk 200-499 Very High Risk >=500 Cholesterol Reference Range: Low Risk <200 Borderline 200-239 High Risk >240 HDL Cholesterol Reference Range: Low Risk >=60 High Risk <40 LDL Cholesterol Reference Range: Optimal <100 Near Optimal 100-129 Borderline 130-159 High 160-189 Very High >=190 Area Development Consultant WENDY Yuan [facility] AngelesBAS[facility] METABOLIC [id number] 06:47:00 Test Item Value Reference Range Interpretation Comments SODIUM (BEAKER) 137 meq/L 136-145 (test code = 381) POTASSIUM (BEAKER) 4.3 meq/L 3.5-5.1 (test code = 379) CHLORIDE (BEAKER) 103 meq/L 98-107 (test code = 382) CO2 (BEAKER) (test 29 meq/L 22-29 code = 355) BLOOD UREA NITROGEN 22 mg/dL 7-21 H (BEAKER) (test code = 354) CREATININE (BEAKER) 0.90 mg/dL 0.57-1.25 (test code = 358) GLUCOSE RANDOM 97 mg/dL 70-105 (BEAKER) (test code = 652) CALCIUM (BEAKER) 8.5 mg/dL 8.4-10.2 (test code = 697) EGFR (BEAKER) (test 62 mL/min/1.73 ESTIMA JACQUELYN GFR IS code = 1092) sq m NOT ACCURATE CREATININE CLEARANCE IN PREDICTING GLOMERULAR FILTRATION RATE . ESTIMATED GFR I S NOT APPLICABLE FOR DIALYSIS PATIEN TS. Area Development Consultant ID - MURALI [id number] 06:47:00 Test Item Value Reference Range Interpretation Comments MAGNESIUM (BEAKER) (test code = 2.0 mg/dL 1.6-2.6 627) Area Development Consultant ID - MURALI [id number] 06:47:00 Test Item Value Reference Range Interpretation Comments PHOSPHORUS (BEAKER) (test code = 2.6 mg/dL 2.3-4.7 604) Area Development Consultant ID - MURALI LLIPID [id number] 06:47:00 Test Item Value Reference Range Interpretation Comments TRIGLYCERIDES (BEAKER) (test code = 58 mg/dL 540) CHOLESTEROL (BEAKER) (test code = 135 mg/dL 631) HDL CHOLESTEROL (BEAKER) (test code 36 mg/dL = 976) LDL CHOLESTEROL CALCULATED (BEAKER) 87 mg/dL (test code = 633) Triglyceride Reference Range: Low Risk <150 Borderline 150-199 High Risk 200-499 Very High Risk >=500Cholesterol Reference Range: Low Risk <200 Borderline 200-239 High Risk >240HDL Cholesterol Reference Range: Low Risk >=60 High Risk <40LDL Cholesterol Reference Range: Optimal <100 Near Optimal 100-129 Borderline 130-159 High 160-189 Very High >=190 Area Development Consultant ID - MURALILCBC W/PLT COUNT & AUTO [id number] 06:07:00 Test Item Value Reference Range Interpretation Comments WHITE BLOOD CELL COUNT (BEAKER) 3.7 K/ L 3.5-10.5 (test code = 775) RED BLOOD CELL COUNT (BEAKER) 2.89 M/ L 3.93-5.22 L (test code = 761) HEMOGLOBIN (BEAKER) (test code = 7.3 GM/DL 11.2-15.7 L 410) HEMATOCRIT (BEAKER) (test code = 24.9 % 34.1-44.9 L 411) MEAN CORPUSCULAR VOLUME (BEAKER) 86.2 fL 79.4-94.8 (test code = 753) MEAN CORPUSCULAR HEMOGLOBIN 25.3 pg 25.6-32.2 L (BEAKER) (test code = 751) MEAN CORPUSCULAR HEMOGLOBIN CONC 29.3 GM/DL 32.2-35.5 L (BEAKER) (test code = 752) RED CELL DISTRIBUTION WIDTH 19.3 % 11.7-14.4 H (BEAKER) (test code = 412) PLATELET COUNT (BEAKER) (test code 63 K/CU MM 150-450 L = 756) MEAN PLATELET VOLUME (BEAKER) 10.6 fL 9.4-12.3 (test code = 754) NUCLEATED RED BLOOD CELLS (BEAKER) 0 /100 WBC 0-0 (test code = 413) NEUTROPHILS RELATIVE PERCENT 65 % (BEAKER) (test code = 429) LYMPHOCYTES RELATIVE PERCENT 22 % (BEAKER) (test code = 430) MONOCYTES RELATIVE PERCENT 11 % (BEAKER) (test code = 431) EOSINOPHILS RELATIVE PERCENT 3 % (BEAKER) (test code = 432) BASOPHILS RELATIVE PERCENT 0 % (BEAKER) (test code = 437) NEUTROPHILS ABSOLUTE COUNT 2.37 K/ L 1.56-6.13 (BEAKER) (test code = 670) LYMPHOCYTES ABSOLUTE COUNT 0.79 K/ L 1.18-3.74 L (BEAKER) (test code = 414) MONOCYTES ABSOLUTE COUNT (BEAKER) 0.40 K/ L 0.24-0.36 H (test code = 415) EOSINOPHILS ABSOLUTE COUNT 0.09 K/ L 0.04-0.36 (BEAKER) (test code = 416) BASOPHILS ABSOLUTE COUNT (BEAKER) 0.01 K/ L 0.01-0.08 (test code = 417) IMMATURE GRANULOCYTES-RELATIVE 0 % 0-1 PERCENT (BEAKER) (test code = 2801) CT, CTANGIO [id number] 00:46:00DR Ammoning: Dr. Eric Sepulveda Reason for Exam - Click Yes and Enter Reason Below->No [facility] : 1950 Sex: FFINAL REPORT EXAM: CT, CT Angio, Brain. CT Carotid Angio CLINICAL HISTORY: Neuro deficit, acute, stroke suspected COMPARISON: Noncontrast head CT 10/23/2020, 3:15 PM. TECHNIQUE: Noncontrast head CT was performed. CT angiogram of the head and neck was performed withintravenous contrast. MIP and volume rendered reformats were obtained. This exam was performed according to our departmental dose optimization program which includes automated exposure control, adjustment of the mA and/or kV according to patient's size and/or use of iterative reconstructive technique.Stenosis evaluation reported in compliance with NASCET criteria. FINDINGS: Noncontrast CT head: There are mild white matter microvascular ischemic changes. There is a chronic lacunar infarct in the left caudate head. There is low-attenuation in the left splenium of the corpus callosum and to a lesserextent the left occipital lobe consistent with an evolving acute LOCATOR territory infarct. There is no acute intracranial hemorrhage, extra-axial fluid collection, mass effect, herniation or hydrocephalus. The basal cisterns are patent. There are bilateral lens replacements. The visualized paranasal sinuses and tympanomastoid cavities are clear. The skull base and calvarium are intact. CTA head: There are mild atherosclerotic calcifications of the bilateral carotid siphons. 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 There is good flow related enhancement of the bilateral anterior, bilateral middle and right posterior cerebral arteries and within thebasilar artery. The intracranial and skull base internal carotid arteries as well as the vertebral arteries demonstrate normal flow-related enhancement. There is no aneurysm. CTA neck: The visualized aortic arch and great vessel origins are unremarkable except for mild calcific atherosclerosis.There is good flow related enhancement of the bilateral common and internal carotid arteries. There are atheromatous changes at the left carotid bifurcation resulting in mild short segment stenosis of the leftproximal cervical ICA from its origin (23%). There is mild short segment stenosis of the right proximal cervical ICA (18%). The vertebral arteries are well visualized. There is no vessel occlusion or hemodynamically significant stenosis by NASCET criteria. There is diffuse interlobular septal thickening in the visualized lungs which may represent pulmonary interstitial edema. IMPRESSION: Noncontrast CT head:Mild white matter microvascular ischemic changes. Chronic left caudate head lacunar infarct.Evolving acute left LOCATOR territory infarct.No acute intracranial hemorrhage or mass effect. 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 CTA neck:Mild short segment stenoses of the bilateral proximal cervical ICAs.No vessel occlusion or hemodynamically significant stenosis by NASCET criteria.Pulmonary findings which may represent pulmonary interstitial edema. A chest radiograph the helpful for further evaluation. Signed: Amy Villavicencioeport Verified Date/Time: 10/24/2020 00:46:37 CT, CAROTID, ANGIO 2020-10-24 00:46:00DR GOLDYeferring: Dr. Eric Sepulveda Reason for Exam - Click Yes and Enter Reason Below->No [facility] 1950 Sex: FFINAL REPORT EXAM: CT, CT Angio, Brain. CT Carotid Angio CLINICAL HISTORY: Neuro deficit, acute, stroke suspected COMPARISON: Noncontrast head CT 10/23/2020, 3:15 PM. TECHNIQUE: Noncontrast head CT was performed. CT angiogram of the head and neck was performed withintravenous contrast. MIP and volume rendered reformats were obtained. This exam was performed according to our departmental dose optimization program which includes automated exposure control, adjustment of the mA and/or kV according to patient's size and/or use of iterative reconstructive technique.Stenosis evaluation reported in compliance with NASCET criteria. FINDINGS: Noncontrast CT head: There are mild white matter microvascular ischemic changes. There is a chronic lacunar infarct in the left caudate head. There is low-attenuation in the left splenium of the corpus callosum and to a lesserextent the left occipital lobe consistent with an evolving acute LOCATOR territory infarct. There is no acute intracranial hemorrhage, extra-axial fluid collection, mass effect, herniation or hydrocephalus. The basal cisterns are patent. There are bilateral lens replacements. The visualized paranasal sinuses and tympanomastoid cavities are clear. The skull base and calvarium are intact. CTA head: There are mild atherosclerotic calcifications of the bilateral carotid siphons. 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 There is good flow related enhancement of the bilateral anterior, bilateral middle and right posterior cerebral arteries and within thebasilar artery. The intracranial and skull base internal carotid arteries as well as the vertebral arteries demonstrate normal flow-related enhancement. There is no aneurysm. CTA neck: The visualized aortic arch and great vessel origins are unremarkable except for mild calcific atherosclerosis.There is good flow related enhancement of the bilateral common and internal carotid arteries. There are atheromatous changes at the left carotid bifurcation resulting in mild short segment stenosis of the leftproximal cervical ICA from its origin (23%). There is mild short segment stenosis of the right proximal cervical ICA (18%). The vertebral arteries are well visualized. There is no vessel occlusion or hemodynamically significant stenosis by NASCET criteria. There is diffuse interlobular septal thickening in the visualized lungs which may represent pulmonary interstitial edema. IMPRESSION: Noncontrast CT head:Mild white matter microvascular ischemic changes. Chronic left caudate head lacunar infarct.Evolving acute left LOCATOR territory infarct.No acute intracranial hemorrhage or mass effect. 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 CTA neck:Mild short segment stenoses of the bilateral proximal cervical ICAs.No vessel occlusion or hemodynamically significant stenosis by NASCET criteria.Pulmonary findings which may represent pulmonary interstitial edema. A chest radiograph the helpful for further evaluation. Signed: Amy Villavicencio [facility] Verified Date/Time: 10/24/2020 00:46:37 CTA [id number] 00:46:00Interface, External Ris In - 10/24/2020 12:48 AM CSTFINAL REPORT EXAM: CT, CTAngio, Brain. CT Carotid Angio CLINICAL HISTORY: Neuro deficit, acute, stroke suspected COMPARISON:Noncontrast head CT 10/23/2020, 3:15 PM. TECHNIQUE: Noncontrast head CT was performed. CT angiogram ofthe head and neck was performed with intravenous contrast. MIP and volume rendered reformats were obtained. This exam was performed according to our departmental dose optimization program which includes automated exposure control, adjustment of the mA and/or kV according to patient's size and/or use of iterative reconstructive technique. Stenosis evaluation reported in compliance with NASCET criteria. FINDINGS: Noncontrast CT head: There are mild white matter microvascular ischemic changes. There is a chronic lacunar infarct in the left caudate head. There is low-attenuation in the left splenium of the corpus callosum and to a lesser extent the left occipital lobe consistent with an evolving acute LOCATOR territory infarct. There is no acute intracranial hemorrhage, extra-axial fluid collection, mass effect, herniation or hydrocephalus. The basal cisterns are patent. There are bilateral lens replacements. The visualized paranasal sinuses and tympanomastoid cavities are clear. The skull base andcalvarium are intact. CTA head: There are mild atherosclerotic calcifications of the bilateral carotid siphons. 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 There is good flow related enhancement of the bilateral anterior, bilateral middle and right posterior cerebral arteries and within the basilar artery. The intracranial and skull base internal carotid arteries as well as the vertebral arteries demonstrate normal flow-related enhancement. There is noaneurysm. CTA neck: The visualized aortic arch and great vessel origins are unremarkable except for mild calcific atherosclerosis.There is good flow related enhancement of the bilateral common and internal carotid arteries. There are atheromatous changes at the left carotid bifurcation resulting in mild short segment stenosis of the left proximal cervical ICA from its origin (23%). There is mild short segment stenosis of the right proximal cervical ICA (18%). The vertebral arteries are well visualized. There is no vessel occlusion or hemodynamically significant stenosis by NASCET criteria. There is diffuse interlobular septal thickening in the visualized lungs which may represent pulmonary interstitial edema. IMPRESSION: Noncontrast CT head:Mild white matter microvascular ischemic changes. Chronic left caudate head lacunar infarct.Evolving acute left LOCATOR territory infarct.No acute intracranialhemorrhage or mass effect. CTA head: Occlusion of the P2 segment of the left LOCATOR. CTA neck:Mild short segment stenoses of the bilateral proximal cervical ICAs.No vessel occlusion or hemodynamically significant stenosis by NASCET criteria.Pulmonary findings which may represent pulmonary interstitial edema. A chest radiograph the helpful for further evaluation. Signed: Amy Villavicencio [facility]eport Verified Date/Time: 10/24/2020 00:46:37 [facility]CT[facility] [id number] 00:46:00 Interface, External Ris In - 10/24/2020 12:48 AM CSTFINAL REPORT EXAM: CT, CTAngio, Brain. CT Carotid Angio CLINICAL HISTORY: Neuro deficit, acute, stroke suspected COMPARISON:Noncontrast head CT 10/23/2020, 3:15 PM. TECHNIQUE: Noncontrast head CT was performed. CT angiogram ofthe head and neck was performed with intravenous contrast. MIP and volume rendered reformats were obtained. This exam was performed according to our departmental dose optimization program which includes automated exposure control, adjustment of the mA and/or kV according to patient's size and/or use of iterative reconstructive technique. Stenosis evaluation reported in compliance with NASCET criteria. FINDINGS: Noncontrast CT head: There are mild white matter microvascular ischemic changes. There is a chronic lacunar infarct in the left caudate head. There is low-attenuation in the left splenium of the corpus callosum and to a lesser extent the left occipital lobe consistent with an evolving acute LOCATOR territory infarct. There is no acute intracranial hemorrhage, extra-axial fluid collection, mass effect, herniation or hydrocephalus. The basal cisterns are patent. There are bilateral lens replacements. The visualized paranasal sinuses and tympanomastoid cavities are clear. The skull base andcalvarium are intact. CTA head: There are mild atherosclerotic calcifications of the bilateral carotid siphons. 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 There is good flow related enhancement of the bilateral anterior, bilateral middle and right posterior cerebral arteries and within the basilar artery. The intracranial and skull base internal carotid arteries as well as the vertebral arteries demonstrate normal flow-related enhancement. There is noaneurysm. CTA neck: The visualized aortic arch and great vessel origins are unremarkable except for mild calcific atherosclerosis.There is good flow related enhancement of the bilateral common and internal carotid arteries. There are atheromatous changes at the left carotid bifurcation resulting in mild short segment stenosis of the left proximal cervical ICA from its origin (23%). There is mild short segment stenosis of the right proximal cervical ICA (18%). The vertebral arteries are well visualized. There is no vessel occlusion or hemodynamically significant stenosis by NASCET criteria. There is diffuse interlobular septal thickening in the visualized lungs which may represent pulmonary interstitial edema. IMPRESSION: Noncontrast CT head:Mild white matter microvascular ischemic changes. Chronic left caudate head lacunar infarct.Evolving acute left LOCATOR territory infarct.No acute intracranialhemorrhage or mass effect. CTA head: Occlusion of the P2 segment of the left LOCATOR. CTA neck:Mild short segment stenoses of the bilateral proximal cervical ICAs.No vessel occlusion or hemodynamically significant stenosis by NASCET criteria.Pulmonary findings which may represent pulmonary interstitial edema. A chest radiograph the helpful for further evaluation. Signed: Amy Villavicencio [facility] Verified Date/Time: 10/24/2020 00:46:37 [facility]C-Reactive [id number] 20:16:00 Test Item Value Reference Range Interpretation Comments CRP (test code = 676) 0.67 mg/dL 0-0.5 H DENA (test code = DENA) Area Development Consultant ID - DB Lab Interpretation (test Abnormal code = 47007-8) [facility]C-REACTIVE [id number] 20:16:00 Test Item Value Reference Range Interpretation Comments C-REACTIVE PROTEIN (BEAKER) (test 0.67 mg/dL 0.00-0.50 H code = 676) Area Development Consultant ID - DBMR, BRAIN, WITHOUT [id number] 18:51:00DR HILTONLALReferring: Dr. Eric Sepulveda Reason for Exam - Click Yes and Enter Reason Below->No [facility] : 1950 Sex: FFINAL REPORT MR, BRAIN, WITHOUT CONTRAST INDICATION: Neuro deficit, acute, persistent or progressing TECHNIQUE: Multiplanar, multisequence MR imaging of the brain without intravenous contrast. COMPARISON: CT head 10/23/2020 FINDINGS: Intracranial: There is restricted diffusion and FLAIR hyperintensity within the mesial left temporal and occipital lobes as well as the left splenium of the corpus callosum, consistent with acute LOCATOR territory infarct. No acute intracranial hemorrhage. No mass effect. No hydrocephalus. Visualized intracranial flow voids are of normal course and caliber. Generalized cerebral atrophy with ex vacuo dilatation of the ventricular systemproportionate to sulci. Scattered foci of T2 prolongation within the periventricular and subcorticalwhite matter are a nonspecific finding commonly attributed to chronic small vessel ischemic disease.Sinuses: No evidence of sinusitis. Mastoids are clear. Orbits: Globes are intact. Calvarium \\T\\ scalp: Unremarkable. IMPRESSION:Acute nonhemorrhagic left LOCATOR territory infarct involving the mesial temporo-occipital lobe and left splenium of the corpus callosum. Signed: Shefali Marcos VerifiedDate/Time: 10/23/2020 18:51:36 MR brain without IV [id number] 18:51:00Interface, External Ris In - 10/23/2020 6:53 PM CSTFINAL REPORT MR, BRAIN, WITHOUT CONTRAST INDICATION: Neuro deficit, acute, persistent or progressing TECHNIQUE: Multiplanar, [facility] MR imaging of the brain without intravenous contrast. COMPARISON: CT head 10/23/2020 FINDINGS: Intracranial: There is restricted diffusion and FLAIR hyperintensity within the mesial left temporal and occipital lobes as well as the left splenium of the corpus callosum, consistent with acute LOCATOR territory infarct. No acute intracranial hemorrhage. No mass effect. No hydrocephalus. Visualizedintracranial flow voids are of normal course and caliber. Generalized cerebral atrophy with ex vacuodilatation of the ventricular system proportionate to sulci. Scattered foci of T2 prolongation within the periventricular and subcortical white matter are a nonspecific finding commonly attributed to ch ronic small vessel ischemic disease. Sinuses: No evidence of sinusitis. Mastoids are clear. Orbits: Globes are intact. Calvarium \\T\\ scalp: Unremarkable. IMPRESSION:Acute nonhemorrhagic left LOCATOR territory infarct involving the mesial temporo-occipital lobe and left splenium of the corpus callosum. Signed: Shefali Marcos Verified Date/Time: 10/23/2020 18:51:36 [facility]TRM[facility] EMERGENCYNIN [id number] 15:58:00 Test Item Value Reference Range Interpretation Comments TROPONIN I (BEAKER) (test code = 0.02 ng/mL 0.00-0.03 397) Troponin I (TnI) levels must be interpreted in the context of the presenting symptoms and the clinical findings. Elevated TnI levels indicate myocardial damage, but are not specific for ischemic heart disease. Elevated TnI levels are seen in patients with other cardiac conditions (including myocarditis and congestive heart failure), and slight TnI elevations occur in patients with other conditions, including sepsis, renal failure, acidosis, acute neurological disease, and persistent tachyarrhythmia.Area Development Consultant ID - DBCOMPREHENSIVE METABOLIC [id number] 15:51:00 Test Item Value Reference Range Interpretation Comments TOTAL PROTEIN 7.2 gm/dL 6.0-8.3 Specimen moder ately (BEAKER) (test code = hemoly zed 770) ALBUMIN (BEAKER) 2.8 g/dL 3.5-5.0 L Specimen mo derately (test code = 1145) hemolyzed ALKALINE PHOSPHATASE 117 U/L 40-150 (BEAKER) (test code = 346) BILIRUBIN TOTAL 0.8 mg/dL 0.2-1.2 Specimen mod erately (BEAKER) (test code = hemoly zed 377) SODIUM (BEAKER) (test 136 meq/L 136-145 code = 381) POTASSIUM (BEAKER) 4.7 meq/L 3.5-5.1 Specimen moderately (test code = 379) hemolyzed CHLORIDE (BEAKER) 104 meq/L 98-107 (test code = 382) CO2 (BEAKER) (test 28 meq/L 22-29 code = 355) BLOOD UREA NITROGEN 20 mg/dL 7-21 (BEAKER) (test code = 354) CREATININE (BEAKER) 0.94 mg/dL 0.57-1.25 Specimen moderately (test code = 358) hemolyzed GLUCOSE RANDOM 141 mg/dL 70-105 H (BEAKER) (test code = 652) CALCIUM (BEAKER) 8.2 mg/dL 8.4-10.2 L (test code = 697) AST (SGOT) (BEAKER) 42 U/L 5-34 H Specimen moderately (test code = 353) hemolyzed ALT (SGPT) (BEAKER) 17 U/L 6-55 Specimen moderately (test code = 347) hemolyzed EGFR (BEAKER) (test 59 mL/min/1.73 ESTIMA JACQUELYN GFR IS code = 1092) sq m NOT ACCURATE CREATININE CLEARANCE IN PREDICTING GLOMERULAR FILTRATION RATE . ESTIMATED GFR I S NOT APPLICABLE FOR DIALYSIS PATIEN TS. Area Development Consultant ID - DBCT, BRAIN/STROKE [id number] 15:34:00DR Priscillaerring: Dr. Eric Morel for exam:->Right visual field deficit [facility] : 1950 Sex: FFINAL REPORT CT, BRAIN/STROKE PROTOCOL INDICATION: TIA, initial examRight visual field deficit TECHNIQUE: Noncontrast axial imaging was obtained from the vertex tothe skull base. Axial images were reconstructed using a bone algorithm. DOSE REDUCTION: Dose modulation, iterative reconstruction, and/or weight-based adjustment of the mA/kV was utilized to reduce theradiation dose to as low as reasonably achievable. COMPARISON: CT 11/07/2015 FINDINGS: Intracranial: Interval progression of generalized cerebral atrophy and chronic white matter microvascular ischemic changes. There is a small region of loss nguyen-white differentiation within the mesial left occipital lobe suspicious for acute infarct. No intracranial hemorrhage or abnormal extra-axial collection. No mass effect. No hydrocephalus. Osseous structures: No fracture. No suspicious lesion. Paranasal sinuses and mastoid air cells: No evidence of sinusitis. Mastoids are clear. Orbital contents: Globes are intact. IMPRESSION: 1.Loss of nguyen-white differentiation in the mesial left occipital lobe is suspicious for acute left LOCATOR territory infarct.2.No acute intracranial hemorrhage.3.Generalized parenchymalvolume loss and chronic microvascular changes, progressed since 2016. The findings were discussed with Dr. KATRIN MICHAUD MD on 10/23/2020 3:34 PM. Signed: Shefali Marcos Verified Date/Time:10/23/2020 15:34:36 CT brain/[id number] 15:34:00Interface, External Ris In - 10/23/2020 3:[address], BRAIN/STROKE PROTOCOL INDICATION: TIA, initial examRight visual field deficit TECHNIQUE: Noncontrast axial imaging was obtained from the vertex to the skull base. Axial images were reconstructed using a bone algorithm. DOSE REDUCTION: Dose modulation, iterative reconstruction, and/or weight-based adjustment ofthe mA/kV was utilized to reduce the radiation dose to as low as reasonably achievable. COMPARISON: CT 11/07/2015 FINDINGS: Intracranial: Interval progression of generalized cerebral atrophy and chronicwhite matter microvascular ischemic changes. There is a small region of loss nguyen-white differentiation within the mesial left occipital lobe suspicious for acute infarct. No intracranial hemorrhage orabnormal extra-axial collection. No mass effect. No hydrocephalus. Osseous structures: No fracture. No suspicious lesion. Paranasal sinuses and mastoid air cells: No evidence of sinusitis. Mastoids are clear. Orbital contents: Globes are intact. IMPRESSION: 1.Loss of nguyen-white differentiation in the mesial left occipital lobe is suspicious for acute left LOCATOR territory infarct.2.No acute intracranialhemorrhage.3.Generalized parenchymal volume loss and chronic microvascular changes, progressed [id number]. The findings were discussed with Dr. KATRIN MICHAUD MD on 10/23/2020 3:34 PM. Signed: Shefali Marcos Verified Date/Time: 10/23/2020 15:34:36 [facility] HospitalPT/[id number] 15:21:00 Test Item Value Reference Interpretation Comments Range Protime (test code = 16.0 See_Comment H [Autom ated 5902-2) message] The system which generated this result transmitted reference range : 11.9 - 14.2 seconds. The reference range was not used to interpret this result as normal/abnormal . INR (test code = 1.33 See_Comment [Automated 6261-6) message] The system which generated this result transmitted reference range : <=5.90. The reference range was not used to interpret this result as normal/abnormal . PTT (test code = 34.4 See_Comment [Automated 25852-2) message] The system which generated this result transmitted reference range : 22.5 - 36.0 seconds. The reference range was not used to interpret this result as normal/abnormal . DENA (test code = Effective 03/14/2019: DENA) PT Reference Range ChangeNew: 11.9-14.2 Previous: 11.7-14.7 RECOMMENDED COUMADIN/WARFARIN INR THERAPY RANGESSTANDARD DOSE: 2.0-3.0 Includes: PROPHYLAXIS for venous thrombosis, systemic embolization; TREATMENT for venous thrombosis and/or pulmonary embolus.HIGH RISK: Target INR is 2.5-3.5 for patients wiht mechanical heart valves. Lab Interpretation Abnormal (test code = 22357-5) [facility]arePROTHROMBIN TIME/[id number] 15:21:00 Test Item Value Reference Range Interpretation Comments PROTIME (BEAKER) (test code = 16.0 seconds 11.9-14.2 H 759) INR (BEAKER) (test code = 370) 1.33 <=5.90 Effective 03/14/2019: PT Reference Range ChangeNew: 11.9-14.2 Previous: 11.7- 14.7RECOMMENDED COUMADIN/WARFARIN INR THERAPY RANGESSTANDARD DOSE: 2.0-3.0 Includes: PROPHYLAXIS for venous thrombosis, systemic embolization; TREATMENT for venous thrombosis and/or pulmonary embolus.HIGH RISK: Target INR is2.5-3.5 for patients wiht mechanical heart valves.PT/[id number] 15:21:00 Test Item Value Reference Range Interpretation Comments PROTIME (BEAKER) (test code = 16.0 seconds 11.9-14.2 H 759) INR (BEAKER) (test code = 370) 1.33 <=5.90 PARTIAL THROMBOPLASTIN TIME 34.4 seconds 22.5-36.0 (BEAKER) (test code = 760) Effective 03/14/2019: PT Reference Range ChangeNew: 11.9-14.2 Previous: 11.7- 14.7RECOMMENDED COUMADIN/WARFARIN INR THERAPY RANGESSTANDARD DOSE: 2.0-3.0 Includes: PROPHYLAXIS for venous thrombosis, systemic embolization; TREATMENT for venous thrombosis and/or pulmonary embolus.HIGH RISK: Target INR is2.5-3.5 for patients wiht mechanical heart valves.CBC W/PLT COUNT & AUTO [id number] 15:12:00 Test Item Value Reference Range Interpretation Comments WHITE BLOOD CELL COUNT (BEAKER) 4.4 K/ L 3.5-10.5 (test code = 775) RED BLOOD CELL COUNT (BEAKER) 3.22 M/ L 3.93-5.22 L (test code = 761) HEMOGLOBIN (BEAKER) (test code = 8.2 GM/DL 11.2-15.7 L 410) HEMATOCRIT (BEAKER) (test code = 28.1 % 34.1-44.9 L 411) MEAN CORPUSCULAR VOLUME (BEAKER) 87.3 fL 79.4-94.8 (test code = 753) MEAN CORPUSCULAR HEMOGLOBIN 25.5 pg 25.6-32.2 L (BEAKER) (test code = 751) MEAN CORPUSCULAR HEMOGLOBIN CONC 29.2 GM/DL 32.2-35.5 L (BEAKER) (test code = 752) RED CELL DISTRIBUTION WIDTH 18.8 % 11.7-14.4 H (BEAKER) (test code = 412) PLATELET COUNT (BEAKER) (test code 67 K/CU MM 150-450 L = 756) MEAN PLATELET VOLUME (BEAKER) 10.4 fL 9.4-12.3 (test code = 754) NUCLEATED RED BLOOD CELLS (BEAKER) 0 /100 WBC 0-0 (test code = 413) NEUTROPHILS RELATIVE PERCENT 72 % (BEAKER) (test code = 429) LYMPHOCYTES RELATIVE PERCENT 17 % (BEAKER) (test code = 430) MONOCYTES RELATIVE PERCENT 9 % (BEAKER) (test code = 431) EOSINOPHILS RELATIVE PERCENT 2 % (BEAKER) (test code = 432) BASOPHILS RELATIVE PERCENT 1 % (BEAKER) (test code = 437) NEUTROPHILS ABSOLUTE COUNT 3.17 K/ L 1.56-6.13 (BEAKER) (test code = 670) LYMPHOCYTES ABSOLUTE COUNT 0.75 K/ L 1.18-3.74 L (BEAKER) (test code = 414) MONOCYTES ABSOLUTE COUNT (BEAKER) 0.39 K/ L 0.24-0.36 H (test code = 415) EOSINOPHILS ABSOLUTE COUNT 0.07 K/ L 0.04-0.36 (BEAKER) (test code = 416) BASOPHILS ABSOLUTE COUNT (BEAKER) 0.02 K/ L 0.01-0.08 (test code = 417) IMMATURE GRANULOCYTES-RELATIVE 0 % 0-1 PERCENT (BEAKER) (test code = 2801) URINALYSIS W/ [id number] 15:23:00 Test Item Value Reference Range Interpretation Comments COLOR (BEAKER) (test code = 470) Yellow CLARITY (BEAKER) (test code = 469) Clear SPECIFIC GRAVITY UA (BEAKER) (test 1.014 1.001-1.035 code = 468) PH UA (BEAKER) (test code = 467) 5.5 5.0-8.0 PROTEIN UA (BEAKER) (test code = Negative Negative 464) GLUCOSE UA (BEAKER) (test code = Negative Negative 365) KETONES UA (BEAKER) (test code = Negative Negative 371) BILIRUBIN UA (BEAKER) (test code = Negative Negative 462) BLOOD UA (BEAKER) (test code = Trace Negative A 461) NITRITE UA (BEAKER) (test code = Positive Negative A 465) LEUKOCYTE ESTERASE UA (BEAKER) Negative Negative (test code = 466) UROBILINOGEN UA (BEAKER) (test 0.2 mg/dL 0.2-1.0 code = 463) RBC UA (BEAKER) (test code = 519) 1 /HPF WBC UA (BEAKER) (test code = 520) 4 /HPF BACTERIA (BEAKER) (test code = Many 517) MUCUS (BEAKER) (test code = 1574) Few SQUAMOUS EPITHELIAL (BEAKER) (test 2 /HPF code = 516) HYALINE CASTS (BEAKER) (test code 2 /LPF = 514) CRYSTALS, URINE (BEAKER) (test Occasional code = 1521) SOURCE(BEAKER) (test code = 9635) Area Development Consultant ID - [auto]Area Development Consultant ID - techB-TYPE NATRIURETIC FACTOR (BNP)2020-09-27 11:13:00 Test Item Value Reference Range Interpretation Comments B-TYPE NATRIURETIC PEPTIDE (BEAKER) 156 pg/mL 0-100 H (test code = 700) Area Development Consultant ID - DBCOMPREHENSIVE METABOLIC [id number] 10:52:00 Test Item Value Reference Range Interpretation Comments TOTAL PROTEIN 6.8 gm/dL 6.0-8.3 (BEAKER) (test code = 770) ALBUMIN (BEAKER) 2.7 g/dL 3.5-5.0 L (test code = 1145) ALKALINE PHOSPHATASE 122 U/L 40-150 (BEAKER) (test code = 346) BILIRUBIN TOTAL 1.0 mg/dL 0.2-1.2 (BEAKER) (test code = 377) SODIUM (BEAKER) (test 139 meq/L 136-145 code = 381) POTASSIUM (BEAKER) 4.2 meq/L 3.5-5.1 (test code = 379) CHLORIDE (BEAKER) 106 meq/L 98-107 (test code = 382) CO2 (BEAKER) (test 27 meq/L 22-29 code = 355) BLOOD UREA NITROGEN 17 mg/dL 7-21 (BEAKER) (test code = 354) CREATININE (BEAKER) 0.92 mg/dL 0.57-1.25 (test code = 358) GLUCOSE RANDOM 138 mg/dL 70-105 H (BEAKER) (test code = 652) CALCIUM (BEAKER) 8.2 mg/dL 8.4-10.2 L (test code = 697) AST (SGOT) (BEAKER) 29 U/L 5-34 (test code = 353) ALT (SGPT) (BEAKER) 17 U/L 6-55 (test code = 347) EGFR (BEAKER) (test 60 mL/min/1.73 ESTIMA JACQUELYN GFR IS code = 1092) sq m NOT ACCURATE CREATININE CLEARANCE IN PREDICTING GLOMERULAR FILTRATION RATE . ESTIMATED GFR I S NOT APPLICABLE FOR DIALYSIS PATIEN TS. Area Development Consultant ID - [id number] 10:52:00 Test Item Value Reference Range Interpretation Comments MAGNESIUM (BEAKER) (test code = 1.7 mg/dL 1.6-2.6 627) Area Development Consultant ID - [id number] 10:52:00 Test Item Value Reference Range Interpretation Comments PHOSPHORUS (BEAKER) (test code = 2.0 mg/dL 2.3-4.7 L 604) Area Development Consultant ID - [id number] 10:41:00 Test Item Value Reference Range Interpretation Comments Ammonia (test code = 36 See_Comment [Autom ated [id number]) message] The system which generated this result transmit jacquelyn reference range : 18 - 72 mol/L . The reference range was not u sed to interpret th is result as normal/abnormal . DENA (test code = DENA) Area Development Consultant ID - DB Lab Interpretation Normal (test code = 16366-7) [facility] 10:[facility]00 Test Item Value Reference Range Interpretation Comments AMMONIA (BEAKER) (test code = 348) 36 mol/L 18-72 Area Development Consultant ID - DBCBC W/PLT COUNT & AUTO [id number] 10:35:00 Test Item Value Reference Range Interpretation Comments WHITE BLOOD CELL COUNT (BEAKER) 4.4 K/ L 3.5-10.5 (test code = 775) RED BLOOD CELL COUNT (BEAKER) 3.17 M/ L 3.93-5.22 L (test code = 761) HEMOGLOBIN (BEAKER) (test code = 8.1 GM/DL 11.2-15.7 L 410) HEMATOCRIT (BEAKER) (test code = 28.2 % 34.1-44.9 L 411) MEAN CORPUSCULAR VOLUME (BEAKER) 89.0 fL 79.4-94.8 (test code = 753) MEAN CORPUSCULAR HEMOGLOBIN 25.6 pg 25.6-32.2 (BEAKER) (test code = 751) MEAN CORPUSCULAR HEMOGLOBIN CONC 28.7 GM/DL 32.2-35.5 L (BEAKER) (test code = 752) RED CELL DISTRIBUTION WIDTH 19.1 % 11.7-14.4 H (BEAKER) (test code = 412) PLATELET COUNT (BEAKER) (test code 62 K/CU MM 150-450 L = 756) MEAN PLATELET VOLUME (BEAKER) 11.1 fL 9.4-12.3 (test code = 754) NUCLEATED RED BLOOD CELLS (BEAKER) 0 /100 WBC 0-0 (test code = 413) NEUTROPHILS RELATIVE PERCENT 72 % (BEAKER) (test code = 429) LYMPHOCYTES RELATIVE PERCENT 17 % (BEAKER) (test code = 430) MONOCYTES RELATIVE PERCENT 9 % (BEAKER) (test code = 431) EOSINOPHILS RELATIVE PERCENT 2 % (BEAKER) (test code = 432) BASOPHILS RELATIVE PERCENT 1 % (BEAKER) (test code = 437) NEUTROPHILS ABSOLUTE COUNT 3.17 K/ L 1.56-6.13 (BEAKER) (test code = 670) LYMPHOCYTES ABSOLUTE COUNT 0.74 K/ L 1.18-3.74 L (BEAKER) (test code = 414) MONOCYTES ABSOLUTE COUNT (BEAKER) 0.40 K/ L 0.24-0.36 H (test code = 415) EOSINOPHILS ABSOLUTE COUNT 0.07 K/ L 0.04-0.36 (BEAKER) (test code = 416) BASOPHILS ABSOLUTE COUNT (BEAKER) 0.03 K/ L 0.01-0.08 (test code = 417) IMMATURE GRANULOCYTES-RELATIVE 0 % 0-1 PERCENT (BEAKER) (test code = 2801) ALPHA FETOPROTEIN (AFP), TUMOR [id number] 17:48:00 Test Item Value Reference Range Interpretation Comments ALPHA-FETOPROTEIN (BEAKER) (test 2.3 ng/mL <10.0 code = 1094) Area Development Consultant ID - BSBASIC METABOLIC [id number] 16:33:00 Test Item Value Reference Range Interpretation Comments SODIUM (BEAKER) 138 meq/L 136-145 (test code = 381) POTASSIUM (BEAKER) 4.1 meq/L 3.5-5.1 (test code = 379) CHLORIDE (BEAKER) 102 meq/L 98-107 (test code = 382) CO2 (BEAKER) (test 32 meq/L 22-29 H code = 355) BLOOD UREA NITROGEN 15 mg/dL 7-21 (BEAKER) (test code = 354) CREATININE (BEAKER) 0.79 mg/dL 0.57-1.25 (test code = 358) GLUCOSE RANDOM 101 mg/dL 70-105 (BEAKER) (test code = 652) CALCIUM (BEAKER) 7.9 mg/dL 8.4-10.2 L (test code = 697) EGFR (BEAKER) (test 72 mL/min/1.73 ESTIMA JACQUELYN GFR IS code = 1092) sq m NOT ACCURATE CREATININE CLEARANCE IN PREDICTING GLOMERULAR FILTRATION RATE . ESTIMATED GFR I S NOT APPLICABLE FOR DIALYSIS PATIEN TS. Area Development Consultant ID - BSHEPATIC FUNCTION [id number] 16:29:00 Test Item Value Reference Range Interpretation Comments TOTAL PROTEIN (BEAKER) (test code = 6.9 gm/dL 6.0-8.3 770) ALBUMIN (BEAKER) (test code = 1145) 2.8 g/dL 3.5-5.0 L BILIRUBIN TOTAL (BEAKER) (test code 1.1 mg/dL 0.2-1.2 = 377) BILIRUBIN DIRECT (BEAKER) (test 0.5 mg/dL 0.1-0.5 code = 706) ALKALINE PHOSPHATASE (BEAKER) (test 129 U/L 40-150 code = 346) AST (SGOT) (BEAKER) (test code = 32 U/L 5-34 353) ALT (SGPT) (BEAKER) (test code = 21 U/L 6-55 347) Area Development Consultant ID - BSCBC W/PLT COUNT & AUTO [id number] 16:17:00 Test Item Value Reference Range Interpretation Comments WHITE BLOOD CELL COUNT (BEAKER) 4.8 K/ L 3.5-10.5 (test code = 775) RED BLOOD CELL COUNT (BEAKER) 3.14 M/ L 3.93-5.22 L (test code = 761) HEMOGLOBIN (BEAKER) (test code = 8.4 GM/DL 11.2-15.7 L 410) HEMATOCRIT (BEAKER) (test code = 29.0 % 34.1-44.9 L 411) MEAN CORPUSCULAR VOLUME (BEAKER) 92.4 fL 79.4-94.8 (test code = 753) MEAN CORPUSCULAR HEMOGLOBIN 26.8 pg 25.6-32.2 (BEAKER) (test code = 751) MEAN CORPUSCULAR HEMOGLOBIN CONC 29.0 GM/DL 32.2-35.5 L (BEAKER) (test code = 752) RED CELL DISTRIBUTION WIDTH 18.4 % 11.7-14.4 H (BEAKER) (test code = 412) PLATELET COUNT (BEAKER) (test code 58 K/CU MM 150-450 L = 756) MEAN PLATELET VOLUME (BEAKER) 11.4 fL 9.4-12.3 (test code = 754) NUCLEATED RED BLOOD CELLS (BEAKER) 0 /100 WBC 0-0 (test code = 413) NEUTROPHILS RELATIVE PERCENT 67 % (BEAKER) (test code = 429) LYMPHOCYTES RELATIVE PERCENT 17 % (BEAKER) (test code = 430) MONOCYTES RELATIVE PERCENT 13 % (BEAKER) (test code = 431) EOSINOPHILS RELATIVE PERCENT 2 % (BEAKER) (test code = 432) BASOPHILS RELATIVE PERCENT 1 % (BEAKER) (test code = 437) NEUTROPHILS ABSOLUTE COUNT 3.19 K/ L 1.56-6.13 (BEAKER) (test code = 670) LYMPHOCYTES ABSOLUTE COUNT 0.82 K/ L 1.18-3.74 L (BEAKER) (test code = 414) MONOCYTES ABSOLUTE COUNT (BEAKER) 0.60 K/ L 0.24-0.36 H (test code = 415) EOSINOPHILS ABSOLUTE COUNT 0.11 K/ L 0.04-0.36 (BEAKER) (test code = 416) BASOPHILS ABSOLUTE COUNT (BEAKER) 0.03 K/ L 0.01-0.08 (test code = 417) IMMATURE GRANULOCYTES-RELATIVE 0 % 0-1 PERCENT (BEAKER) (test code = 2801) PROTHROMBIN [id number] 16:16:00 Test Item Value Reference Range Interpretation Comments PROTIME (BEAKER) (test code = 16.6 seconds 11.9-14.2 H 759) INR (BEAKER) (test code = 370) 1.39 <=5.90 Effective 03/14/2019: PT Reference Range ChangeNew: 11.9-14.2 Previous: 11.7- 14.7RECOMMENDED COUMADIN/WARFARIN INR THERAPY RANGESSTANDARD DOSE: 2.0-3.0 Includes: PROPHYLAXIS for venous thrombosis, systemic embolization; TREATMENT for venous thrombosis and/or pulmonary embolus.HIGH RISK: Target INR is2.5-3.5 for patients wiht mechanical heart valves.ALPHA FETOPROTEIN (AFP), TUMOR MARKER 2019-11-15 18:18:00 Test Item Value Reference Range Interpretation Comments ALPHA-FETOPROTEIN (BEAKER) (test 2.8 ng/mL <10.0 code = 1094) Area Development Consultant ID - DBBASIC METABOLIC [id number] 18:13:00 Test Item Value Reference Range Interpretation Comments SODIUM (BEAKER) 136 meq/L 136-145 (test code = 381) POTASSIUM (BEAKER) 4.7 meq/L 3.5-5.1 Specimen slightly (test code = 379) hemolyzed CHLORIDE (BEAKER) 103 meq/L 98-107 (test code = 382) CO2 (BEAKER) (test 25 meq/L 22-29 code = 355) BLOOD UREA NITROGEN 13 mg/dL 7-21 (BEAKER) (test code = 354) CREATININE (BEAKER) 0.92 mg/dL 0.57-1.25 Specimen slightly (test code = 358) hemolyzed GLUCOSE RANDOM 115 mg/dL 70-105 H (BEAKER) (test code = 652) CALCIUM (BEAKER) 9.0 mg/dL 8.4-10.2 (test code = 697) EGFR (BEAKER) (test 61 mL/min/1.73 ESTIMA JACQUELYN GFR IS code = 1092) sq m NOT ACCURATE CREATININE CLEARANCE IN PREDICTING GLOMERULAR FILTRATION RATE . ESTIMATED GFR I S NOT APPLICABLE FOR DIALYSIS PATIEN TS. Area Development Consultant ID - DBHEPATIC FUNCTION [id number] 18:13:00 Test Item Value Reference Range Interpretation Comments TOTAL PROTEIN (BEAKER) 7.6 gm/dL 6.0-8.3 Speci men slightly (test code = 770) hemolyzed ALBUMIN (BEAKER) (test 2.8 g/dL 3.5-5.0 L Speci men slightly code = 1145) hemolyzed BILIRUBIN TOTAL 1.5 mg/dL 0.2-1.2 H Specimen sli ghtly (BEAKER) (test code = hemoly zed 377) BILIRUBIN DIRECT 0.6 mg/dL 0.1-0.5 H Specimen sl ightly (BEAKER) (test code = hemoly zed 706) ALKALINE PHOSPHATASE 164 U/L 40-150 H (BEAKER) (test code = 346) AST (SGOT) (BEAKER) 43 U/L 5-34 H Specimen slightly (test code = 353) hemolyzed ALT (SGPT) (BEAKER) 21 U/L 6-55 Specimen slightly (test code = 347) hemolyzed Area Development Consultant ID - DBPROTHROMBIN [id number] 17:20:00 Test Item Value Reference Range Interpretation Comments PROTIME (BEAKER) (test code = 15.9 seconds 11.9-14.2 H 759) INR (BEAKER) (test code = 370) 1.3 <=5.9 Effective 03/14/2019: PT Reference Range ChangeNew: 11.9-14.2 Previous: 11.7- 14.7RECOMMENDED COUMADIN/WARFARIN INR THERAPY RANGESSTANDARD DOSE: 2.0-3.0 Includes: PROPHYLAXIS for venous thrombosis, systemic embolization; TREATMENT for venous thrombosis and/or pulmonary embolus.HIGH RISK: Target INR is2.5-3.5 for patients wiht mechanical heart valves.ALPHA FETOPROTEIN (AFP), TUMOR MARKER 2019-10-04 14:22:00 Test Item Value Reference Range Interpretation Comments ALPHA-FETOPROTEIN (BEAKER) (test 2.3 ng/mL <10.0 code = 1094) BASIC METABOLIC [id number] 13:59:00 Test Item Value Reference Range Interpretation Comments SODIUM (BEAKER) 139 meq/L 136-145 (test code = 381) POTASSIUM (BEAKER) 4.4 meq/L 3.5-5.1 (test code = 379) CHLORIDE (BEAKER) 101 meq/L 98-107 (test code = 382) CO2 (BEAKER) (test 30 meq/L 22-29 H code = 355) BLOOD UREA NITROGEN 10 mg/dL 7-21 (BEAKER) (test code = 354) CREATININE (BEAKER) 0.97 mg/dL 0.57-1.25 (test code = 358) GLUCOSE RANDOM 101 mg/dL 70-105 (BEAKER) (test code = 652) CALCIUM (BEAKER) 8.8 mg/dL 8.4-10.2 (test code = 697) EGFR (BEAKER) (test 57 mL/min/1.73 ESTIMA JACQUELYN GFR IS code = 1092) sq m NOT ACCURATE CREATININE CLEARANCE IN PREDICTING GLOMERULAR FILTRATION RATE . ESTIMATED GFR I S NOT APPLICABLE FOR DIALYSIS PATIEN TS. Specimen slightly ictericHEPATIC FUNCTION [id number] 13:59:00 Test Item Value Reference Range Interpretation Comments TOTAL PROTEIN (BEAKER) (test code = 7.2 gm/dL 6.0-8.3 770) ALBUMIN (BEAKER) (test code = 1145) 2.8 g/dL 3.5-5.0 L BILIRUBIN TOTAL (BEAKER) (test code 3.1 mg/dL 0.2-1.2 H = 377) BILIRUBIN DIRECT (BEAKER) (test 1.3 mg/dL 0.1-0.5 H code = 706) ALKALINE PHOSPHATASE (BEAKER) (test 144 U/L 40-150 code = 346) AST (SGOT) (BEAKER) (test code = 37 U/L 5-34 H 353) ALT (SGPT) (BEAKER) (test code = 21 U/L 6-55 347) Specimen slightly ictericPROTHROMBIN [id number] 13:43:00 Test Item Value Reference Range Interpretation Comments PROTIME (BEAKER) (test code = 18.6 seconds 11.9-14.2 H 759) INR (BEAKER) (test code = 370) 1.6 <=5.9 Effective 03/14/2019: PT Reference Range ChangeNew: 11.9-14.2 Previous: 11.7- 14.7RECOMMENDED COUMADIN/WARFARIN INR THERAPY RANGESSTANDARD DOSE: 2.0-3.0 Includes: PROPHYLAXIS for venous thrombosis, systemic embolization; TREATMENT for venous thrombosis and/or pulmonary embolus.HIGH RISK: Target INR is2.5-3.5 for patients wiht mechanical heart valves.CBC W/PLT COUNT & AUTO [id number] 13:37:00 Test Item Value Reference Range Interpretation Comments WHITE BLOOD CELL COUNT (BEAKER) 5.0 K/ L 3.5-10.5 (test code = 775) RED BLOOD CELL COUNT (BEAKER) 4.09 M/ L 3.93-5.22 (test code = 761) HEMOGLOBIN (BEAKER) (test code = 11.3 GM/DL 11.2-15.7 410) HEMATOCRIT (BEAKER) (test code = 38.6 % 34.1-44.9 411) MEAN CORPUSCULAR VOLUME (BEAKER) 94.4 fL 79.4-94.8 (test code = 753) MEAN CORPUSCULAR HEMOGLOBIN 27.6 pg 25.6-32.2 (BEAKER) (test code = 751) MEAN CORPUSCULAR HEMOGLOBIN CONC 29.3 GM/DL 32.2-35.5 L (BEAKER) (test code = 752) RED CELL DISTRIBUTION WIDTH 20.2 % 11.7-14.4 H (BEAKER) (test code = 412) PLATELET COUNT (BEAKER) (test code 57 K/CU MM 150-450 L = 756) MEAN PLATELET VOLUME (BEAKER) 10.2 fL 9.4-12.3 (test code = 754) NUCLEATED RED BLOOD CELLS (BEAKER) 0 /100 WBC 0-0 (test code = 413) NEUTROPHILS RELATIVE PERCENT 74 % (BEAKER) (test code = 429) LYMPHOCYTES RELATIVE PERCENT 15 % (BEAKER) (test code = 430) MONOCYTES RELATIVE PERCENT 9 % (BEAKER) (test code = 431) EOSINOPHILS RELATIVE PERCENT 1 % (BEAKER) (test code = 432) BASOPHILS RELATIVE PERCENT 1 % (BEAKER) (test code = 437) NEUTROPHILS ABSOLUTE COUNT 3.70 K/ L 1.56-6.13 (BEAKER) (test code = 670) LYMPHOCYTES ABSOLUTE COUNT 0.75 K/ L 1.18-3.74 L (BEAKER) (test code = 414) MONOCYTES ABSOLUTE COUNT (BEAKER) 0.47 K/ L 0.24-0.36 H (test code = 415) EOSINOPHILS ABSOLUTE COUNT 0.04 K/ L 0.04-0.36 (BEAKER) (test code = 416) BASOPHILS ABSOLUTE COUNT (BEAKER) 0.04 K/ L 0.01-0.08 (test code = 417) IMMATURE GRANULOCYTES-RELATIVE 0 % 0-1 PERCENT (BEAKER) (test code = 2801) BASIC METABOLIC [id number] 18:07:00 Test Item Value Reference Range Interpretation Comments SODIUM (BEAKER) 137 meq/L 136-145 (test code = 381) POTASSIUM (BEAKER) 4.0 meq/L 3.5-5.1 Specimen slightly (test code = 379) hemolyzed CHLORIDE (BEAKER) 100 meq/L 98-107 (test code = 382) CO2 (BEAKER) (test 31 meq/L 22-29 H code = 355) BLOOD UREA NITROGEN 15 mg/dL 7-21 (BEAKER) (test code = 354) CREATININE (BEAKER) 0.86 mg/dL 0.57-1.25 Specimen slightly (test code = 358) hemolyzed GLUCOSE RANDOM 108 mg/dL 70-105 H (BEAKER) (test code = 652) CALCIUM (BEAKER) 8.3 mg/dL 8.4-10.2 L (test code = 697) EGFR (BEAKER) (test 65 mL/min/1.73 ESTIMA JACQUELYN GFR IS code = 1092) sq m NOT ACCURATE CREATININE CLEARANCE IN PREDICTING GLOMERULAR FILTRATION RATE . ESTIMATED GFR I S NOT APPLICABLE FOR DIALYSIS PATIEN TS. Specimen slightly ictericHEPATIC FUNCTION [id number] 18:07:00 Test Item Value Reference Range Interpretation Comments TOTAL PROTEIN (BEAKER) 6.5 gm/dL 6.0-8.3 Speci men slightly (test code = 770) hemolyzed ALBUMIN (BEAKER) (test 2.5 g/dL 3.5-5.0 L Speci men slightly code = 1145) hemolyzed BILIRUBIN TOTAL 3.2 mg/dL 0.2-1.2 H Specimen sli ghtly (BEAKER) (test code = hemoly zed 377) BILIRUBIN DIRECT 1.2 mg/dL 0.1-0.5 H Specimen sl ightly (BEAKER) (test code = hemoly zed 706) ALKALINE PHOSPHATASE 139 U/L 40-150 (BEAKER) (test code = 346) AST (SGOT) (BEAKER) 40 U/L 5-34 H Specimen slightly (test code = 353) hemolyzed ALT (SGPT) (BEAKER) 18 U/L 6-55 Specimen slightly (test code = 347) hemolyzed Specimen slightly ictericPT/[id number] 17:56:00 Test Item Value Reference Range Interpretation Comments PROTIME (BEAKER) (test code = 19.0 seconds 11.9-14.2 H 759) INR (BEAKER) (test code = 370) 1.7 <=5.9 PARTIAL THROMBOPLASTIN TIME 39.6 seconds 22.5-36.0 H (BEAKER) (test code = 760) Effective 03/14/2019: PT Reference Range ChangeNew: 11.9-14.2 Previous: 11.7- 14.7RECOMMENDED COUMADIN/WARFARIN INR THERAPY RANGESSTANDARD DOSE: 2.0-3.0 Includes: PROPHYLAXIS for venous thrombosis, systemic embolization; TREATMENT for venous thrombosis and/or pulmonary embolus.HIGH RISK: Target INR is2.5-3.5 for patients wiht mechanical heart valves.CBC W/PLT COUNT & AUTO [id number] 17:44:00 Test Item Value Reference Range Interpretation Comments WHITE BLOOD CELL COUNT (BEAKER) 5.9 K/ L 3.5-10.5 (test code = 775) RED BLOOD CELL COUNT (BEAKER) 3.80 M/ L 3.93-5.22 L (test code = 761) HEMOGLOBIN (BEAKER) (test code = 10.3 GM/DL 11.2-15.7 L 410) HEMATOCRIT (BEAKER) (test code = 33.7 % 34.1-44.9 L 411) MEAN CORPUSCULAR VOLUME (BEAKER) 88.7 fL 79.4-94.8 (test code = 753) MEAN CORPUSCULAR HEMOGLOBIN 27.1 pg 25.6-32.2 (BEAKER) (test code = 751) MEAN CORPUSCULAR HEMOGLOBIN CONC 30.6 GM/DL 32.2-35.5 L (BEAKER) (test code = 752) RED CELL DISTRIBUTION WIDTH 18.7 % 11.7-14.4 H (BEAKER) (test code = 412) PLATELET COUNT (BEAKER) (test code 45 K/CU MM 150-450 L = 756) MEAN PLATELET VOLUME (BEAKER) 9.9 fL 9.4-12.3 (test code = 754) NUCLEATED RED BLOOD CELLS (BEAKER) 0 /100 WBC 0-0 (test code = 413) NEUTROPHILS RELATIVE PERCENT 72 % (BEAKER) (test code = 429) LYMPHOCYTES RELATIVE PERCENT 13 % (BEAKER) (test code = 430) MONOCYTES RELATIVE PERCENT 12 % (BEAKER) (test code = 431) EOSINOPHILS RELATIVE PERCENT 2 % (BEAKER) (test code = 432) BASOPHILS RELATIVE PERCENT 1 % (BEAKER) (test code = 437) NEUTROPHILS ABSOLUTE COUNT 4.29 K/ L 1.56-6.13 (BEAKER) (test code = 670) LYMPHOCYTES ABSOLUTE COUNT 0.77 K/ L 1.18-3.74 L (BEAKER) (test code = 414) MONOCYTES ABSOLUTE COUNT (BEAKER) 0.69 K/ L 0.24-0.36 H (test code = 415) EOSINOPHILS ABSOLUTE COUNT 0.13 K/ L 0.04-0.36 (BEAKER) (test code = 416) BASOPHILS ABSOLUTE COUNT (BEAKER) 0.04 K/ L 0.01-0.08 (test code = 417) IMMATURE GRANULOCYTES-RELATIVE 0 % 0-1 PERCENT (BEAKER) (test code = 2801) RAD, CHEST, 2 [id number] 17:15:00Referring: Dr. Eric Morel for exam:->sobFINAL REPORT History: Shortness of breath. FINDINGS: Chest, two views: PA andlateral views of the chest are compared to the patient's prior study performed September 19, 2019. Theheart and mediastinum appear stable and of normal size. Pulmonary interstitium remains mildly and dif fusely increased. Patchy bilateral pulmonary airspace opacity is present and has increased since theprevious study, possibly pneumonia. No large pleural effusions.Bones are unremarkable. IMPRESSION: 1. New patchy bilateral pulmonary airspace opacity, possibly pneumonia. Signed: Esvin Valladares MDReportVerified Date/Time: 09/25/2019 17:15:28 Reading Location: [facility] Radiology Reading Room LACTIC ACID, [id number] 09:40:00 Test Item Value Reference Range Interpretation Comments LACTATE BLOOD VENOUS 2.7 mmol/L 0.5-2.2 H Specime n slightly (2) (BEAKER) (test hemolyzed code = 2872) Specimen slightly ictericCOMPREHENSIVE METABOLIC [id number] 09:31:00 Test Item Value Reference Range Interpretation Comments TOTAL PROTEIN 6.4 gm/dL 6.0-8.3 (BEAKER) (test code = 770) ALBUMIN (BEAKER) 2.5 g/dL 3.5-5.0 L (test code = 1145) ALKALINE PHOSPHATASE 141 U/L 40-150 (BEAKER) (test code = 346) BILIRUBIN TOTAL 2.1 mg/dL 0.2-1.2 H (BEAKER) (test code = 377) SODIUM (BEAKER) (test 138 meq/L 136-145 code = 381) POTASSIUM (BEAKER) 3.9 meq/L 3.5-5.1 (test code = 379) CHLORIDE (BEAKER) 102 meq/L 98-107 (test code = 382) CO2 (BEAKER) (test 31 meq/L 22-29 H code = 355) BLOOD UREA NITROGEN 15 mg/dL 7-21 (BEAKER) (test code = 354) CREATININE (BEAKER) 0.78 mg/dL 0.57-1.25 (test code = 358) GLUCOSE RANDOM 111 mg/dL 70-105 H (BEAKER) (test code = 652) CALCIUM (BEAKER) 8.3 mg/dL 8.4-10.2 L (test code = 697) AST (SGOT) (BEAKER) 37 U/L 5-34 H (test code = 353) ALT (SGPT) (BEAKER) 20 U/L 6-55 (test code = 347) EGFR (BEAKER) (test 73 mL/min/1.73 ESTIMA JACQUELYN GFR IS code = 1092) sq m NOT ACCURATE CREATININE CLEARANCE IN PREDICTING GLOMERULAR FILTRATION RATE . ESTIMATED GFR I S NOT APPLICABLE FOR DIALYSIS PATIEN TS. Specimen slightly ictericCBC W/PLT COUNT & AUTO [id number] 09:24:00 Test Item Value Reference Range Interpretation Comments WHITE BLOOD CELL COUNT (BEAKER) 4.7 K/ L 3.5-10.5 (test code = 775) RED BLOOD CELL COUNT (BEAKER) 3.37 M/ L 3.93-5.22 L (test code = 761) HEMOGLOBIN (BEAKER) (test code = 9.0 GM/DL 11.2-15.7 L 410) HEMATOCRIT (BEAKER) (test code = 30.6 % 34.1-44.9 L 411) MEAN CORPUSCULAR VOLUME (BEAKER) 90.8 fL 79.4-94.8 (test code = 753) MEAN CORPUSCULAR HEMOGLOBIN 26.7 pg 25.6-32.2 (BEAKER) (test code = 751) MEAN CORPUSCULAR HEMOGLOBIN CONC 29.4 GM/DL 32.2-35.5 L (BEAKER) (test code = 752) RED CELL DISTRIBUTION WIDTH 18.9 % 11.7-14.4 H (BEAKER) (test code = 412) PLATELET COUNT (BEAKER) (test code 66 K/CU MM 150-450 L = 756) MEAN PLATELET VOLUME (BEAKER) 10.8 fL 9.4-12.3 (test code = 754) NUCLEATED RED BLOOD CELLS (BEAKER) 0 /100 WBC 0-0 (test code = 413) NEUTROPHILS RELATIVE PERCENT 81 % (BEAKER) (test code = 429) LYMPHOCYTES RELATIVE PERCENT 9 % (BEAKER) (test code = 430) MONOCYTES RELATIVE PERCENT 9 % (BEAKER) (test code = 431) EOSINOPHILS RELATIVE PERCENT 1 % (BEAKER) (test code = 432) BASOPHILS RELATIVE PERCENT 1 % (BEAKER) (test code = 437) NEUTROPHILS ABSOLUTE COUNT 3.81 K/ L 1.56-6.13 (BEAKER) (test code = 670) LYMPHOCYTES ABSOLUTE COUNT 0.40 K/ L 1.18-3.74 L (BEAKER) (test code = 414) MONOCYTES ABSOLUTE COUNT (BEAKER) 0.41 K/ L 0.24-0.36 H (test code = 415) EOSINOPHILS ABSOLUTE COUNT 0.03 K/ L 0.04-0.36 L (BEAKER) (test code = 416) BASOPHILS ABSOLUTE COUNT (BEAKER) 0.04 K/ L 0.01-0.08 (test code = 417) IMMATURE GRANULOCYTES-RELATIVE 1 % 0-1 PERCENT (BEAKER) (test code = 2801) RAD, CHEST, 1 VIEW, NON [id number] 09:00:00Referring: Dr. Eric Morel for exam:->SHORTNESS OF BREATHShould [facility]?->YesFINAL REPORT INDICATION: SHORTNESS OF BREATH COMPARISON: September [...] Signed: JR Varela Robert MDReport Verified Date/Time: 09/19/2019 09:00:49 Reading Location: [facility] Radiology Reading Room BLOOD [id number] 01:00:00 Test Item Value Reference Range Interpretation Comments CULTURE (BEAKER) (test No growth in 5 days code = 1095) BLOOD [id number] 01:00:00 Test Item Value Reference Range Interpretation Comments CULTURE (BEAKER) (test No growth in 5 days code = 1095) COMPREHENSIVE METABOLIC [id number] 07:18:00 Test Item Value Reference Range Interpretation Comments TOTAL PROTEIN 5.2 gm/dL 6.0-8.3 L (BEAKER) (test code = 770) ALBUMIN (BEAKER) 2.1 g/dL 3.5-5.0 L (test code = 1145) ALKALINE PHOSPHATASE 110 U/L 40-150 (BEAKER) (test code = 346) BILIRUBIN TOTAL 1.6 mg/dL 0.2-1.2 H (BEAKER) (test code = 377) SODIUM (BEAKER) (test 137 meq/L 136-145 code = 381) POTASSIUM (BEAKER) 3.6 meq/L 3.5-5.1 (test code = 379) CHLORIDE (BEAKER) 106 meq/L 98-107 (test code = 382) CO2 (BEAKER) (test 29 meq/L 22-29 code = 355) BLOOD UREA NITROGEN 14 mg/dL 7-21 (BEAKER) (test code = 354) CREATININE (BEAKER) 0.73 mg/dL 0.57-1.25 (test code = 358) GLUCOSE RANDOM 94 mg/dL 70-105 (BEAKER) (test code = 652) CALCIUM (BEAKER) 7.7 mg/dL 8.4-10.2 L (test code = 697) AST (SGOT) (BEAKER) 31 U/L 5-34 (test code = 353) ALT (SGPT) (BEAKER) 13 U/L 6-55 (test code = 347) EGFR (BEAKER) (test 79 mL/min/1.73 ESTIMA JACQUELYN GFR IS code = 1092) sq m NOT ACCURATE CREATININE CLEARANCE IN PREDICTING GLOMERULAR FILTRATION RATE . ESTIMATED GFR I S NOT APPLICABLE FOR DIALYSIS PATIEN TS. LACTIC ACID, [id number] 06:20:00 Test Item Value Reference Range Interpretation Comments LACTATE BLOOD VENOUS (2) (BEAKER) 1.2 mmol/L 0.5-2.2 (test code = 2872) CBC W/PLT COUNT & AUTO [id number] 06:02:00 Test Item Value Reference Range Interpretation Comments WHITE BLOOD CELL COUNT (BEAKER) 3.2 K/ L 3.5-10.5 L (test code = 775) RED BLOOD CELL COUNT (BEAKER) 2.99 M/ L 3.93-5.22 L (test code = 761) HEMOGLOBIN (BEAKER) (test code = 7.8 GM/DL 11.2-15.7 L 410) HEMATOCRIT (BEAKER) (test code = 26.6 % 34.1-44.9 L 411) MEAN CORPUSCULAR VOLUME (BEAKER) 89.0 fL 79.4-94.8 (test code = 753) MEAN CORPUSCULAR HEMOGLOBIN 26.1 pg 25.6-32.2 (BEAKER) (test code = 751) MEAN CORPUSCULAR HEMOGLOBIN CONC 29.3 GM/DL 32.2-35.5 L (BEAKER) (test code = 752) RED CELL DISTRIBUTION WIDTH 18.5 % 11.7-14.4 H (BEAKER) (test code = 412) PLATELET COUNT (BEAKER) (test code 49 K/CU MM 150-450 L = 756) MEAN PLATELET VOLUME (BEAKER) 9.8 fL 9.4-12.3 (test code = 754) NUCLEATED RED BLOOD CELLS (BEAKER) 0 /100 WBC 0-0 (test code = 413) NEUTROPHILS RELATIVE PERCENT 60 % (BEAKER) (test code = 429) LYMPHOCYTES RELATIVE PERCENT 24 % (BEAKER) (test code = 430) MONOCYTES RELATIVE PERCENT 13 % (BEAKER) (test code = 431) EOSINOPHILS RELATIVE PERCENT 3 % (BEAKER) (test code = 432) BASOPHILS RELATIVE PERCENT 1 % (BEAKER) (test code = 437) NEUTROPHILS ABSOLUTE COUNT 1.91 K/ L 1.56-6.13 (BEAKER) (test code = 670) LYMPHOCYTES ABSOLUTE COUNT 0.75 K/ L 1.18-3.74 L (BEAKER) (test code = 414) MONOCYTES ABSOLUTE COUNT (BEAKER) 0.41 K/ L 0.24-0.36 H (test code = 415) EOSINOPHILS ABSOLUTE COUNT 0.09 K/ L 0.04-0.36 (BEAKER) (test code = 416) BASOPHILS ABSOLUTE COUNT (BEAKER) 0.02 K/ L 0.01-0.08 (test code = 417) IMMATURE GRANULOCYTES-RELATIVE 0 % 0-1 PERCENT (BEAKER) (test code = 2801) U/S, ABDOMINAL, [id number] 02:23:00Referring[facility] Add comment if clarification is needed.->LiverReason for exam:- >ABDOMINAL PAINReason for exam:->known cirrhosis concerned about increased ascitisShould this be performed at the bedside?->YesFINAL REPORT History: Abdominal pain, known cirrhosis, concerned about increased ascites Abdominal ultrasound dated 09/11/2019 Comparison: None Comment: Real- time transabdominal ultrasound of the right upper quadrant abdomen was performed. Liver: 7.7 cm , normal. Coarse parenchymal echogenicity with a nodular contour consistent with cirrhosis. No focal lesions. Gallbladder: No gallstones. Diffuse gallbladder wall thickening, measuring [...] including moderate to large volume ascites. Signed: Dom Tian MDReport Verified Date/Time: 09/11/2019 02:23:37 CT, CHEST, WITHOUT CONTRAST 2019-09-10 18:38:00Referring: Dr. Eric Morel for exam:->ABDOMINAL PAINWhat is the patient's sedation requirement?->No SedationFINAL [...] both lung bases, right greater than left Subcenti meter calcified granuloma in the right middle lobe. [...] visualized on prior MRI. Moderate volume ascites. IMPRESS ION:Pulmonary findings likely represent an interstitial lung disease such as usual interstitial pneumonia (UIP) or nonspecific interstitial pneumonia (NSIP). Wedge-shaped hypodensities in the spleen, suggestive of infarcts. Cirrhosis with moderate volume ascites. Signed: Sheron Aranda MDReport Verified Date/Time: 09/10/2019 18:38:06 Reading Location: [facility] B1 C013W Consult Reading Room POCT- LACTIC ACID, [id number] 16:53:00 Test Item Value Reference Range Interpretation Comments POC-LACTIC ACID, 3.1 mmol/L 0.9-1.7 H [address] [facility] 6720 VENOUS (BEAKER) (test EDI Hines [place] code = 2805) [address] RAD, CHEST, 1 VIEW, NON [id number] 16:48:00Referring: Dr. Eric Morel for exam:->ABDOMINAL PAINShould this be performed at the bedside?->Yes FINAL REPORT EXAM: Frontal chest radiograph HISTORY PROVIDED: Abdominal pain COMPARISON: None available IMPRESSION:There is elevation of the right hemidiaphragm. There are bilateral airspace opacities particularly in the mid and lower lung zones bilaterally, left greater than rig ht which are nonspecific and may represent multifocal pneumonitis, edema, with possible superimposedatelectasis. A CT can be performed for further evaluation. No discernible pneumothorax or large pleural effusion. The cardiac silhouette is partially obscured but appears enlarged. No acute osseous abnormality. Degenerative changes of the spine and shoulders are noted. Signed: Tunde Cruz MDReport Verified Date/Time: 09/10/2019 16:48:56 Reading Location: [facility] Mammo Reading Room BASIC METABOLIC [id number] 16:27:00 Test Item Value Reference Range Interpretation Comments SODIUM (BEAKER) 136 meq/L 136-145 (test code = 381) POTASSIUM (BEAKER) 3.9 meq/L 3.5-5.1 (test code = 379) CHLORIDE (BEAKER) 102 meq/L 98-107 (test code = 382) CO2 (BEAKER) (test 25 meq/L 22-29 code = 355) BLOOD UREA NITROGEN 13 mg/dL 7-21 (BEAKER) (test code = 354) CREATININE (BEAKER) 0.83 mg/dL 0.57-1.25 (test code = 358) GLUCOSE RANDOM 139 mg/dL 70-105 H (BEAKER) (test code = 652) CALCIUM (BEAKER) 8.1 mg/dL 8.4-10.2 L (test code = 697) EGFR (BEAKER) (test 68 mL/min/1.73 ESTIMA JACQUELYN GFR IS code = 1092) sq m NOT ACCURATE CREATININE CLEARANCE IN PREDICTING GLOMERULAR FILTRATION RATE . ESTIMATED GFR I S NOT APPLICABLE FOR DIALYSIS PATIEN TS. Specimen slightly ictericHEPATIC FUNCTION [id number] 16:27:00 Test Item Value Reference Range Interpretation Comments TOTAL PROTEIN (BEAKER) (test code = 6.2 gm/dL 6.0-8.3 770) ALBUMIN (BEAKER) (test code = 1145) 2.4 g/dL 3.5-5.0 L BILIRUBIN TOTAL (BEAKER) (test code 1.9 mg/dL 0.2-1.2 H = 377) BILIRUBIN DIRECT (BEAKER) (test 1.0 mg/dL 0.1-0.5 H code = 706) ALKALINE PHOSPHATASE (BEAKER) (test 138 U/L 40-150 code = 346) AST (SGOT) (BEAKER) (test code = 33 U/L 5-34 353) ALT (SGPT) (BEAKER) (test code = 18 U/L 6-55 347) Specimen slightly ictericCBC W/PLT COUNT & AUTO [id number] 16:15:00 Test Item Value Reference Range Interpretation Comments WHITE BLOOD CELL COUNT (BEAKER) 4.7 K/ L 3.5-10.5 (test code = 775) RED BLOOD CELL COUNT (BEAKER) 3.45 M/ L 3.93-5.22 L (test code = 761) HEMOGLOBIN (BEAKER) (test code = 9.3 GM/DL 11.2-15.7 L 410) HEMATOCRIT (BEAKER) (test code = 31.0 % 34.1-44.9 L 411) MEAN CORPUSCULAR VOLUME (BEAKER) 89.9 fL 79.4-94.8 (test code = 753) MEAN CORPUSCULAR HEMOGLOBIN 27.0 pg 25.6-32.2 (BEAKER) (test code = 751) MEAN CORPUSCULAR HEMOGLOBIN CONC 30.0 GM/DL 32.2-35.5 L (BEAKER) (test code = 752) RED CELL DISTRIBUTION WIDTH 18.1 % 11.7-14.4 H (BEAKER) (test code = 412) PLATELET COUNT (BEAKER) (test code 61 K/CU MM 150-450 L = 756) MEAN PLATELET VOLUME (BEAKER) 10.5 fL 9.4-12.3 (test code = 754) NUCLEATED RED BLOOD CELLS (BEAKER) 0 /100 WBC 0-0 (test code = 413) NEUTROPHILS RELATIVE PERCENT 83 % (BEAKER) (test code = 429) LYMPHOCYTES RELATIVE PERCENT 7 % (BEAKER) (test code = 430) MONOCYTES RELATIVE PERCENT 8 % (BEAKER) (test code = 431) EOSINOPHILS RELATIVE PERCENT 0 % (BEAKER) (test code = 432) BASOPHILS RELATIVE PERCENT 0 % (BEAKER) (test code = 437) NEUTROPHILS ABSOLUTE COUNT 3.94 K/ L 1.56-6.13 (BEAKER) (test code = 670) LYMPHOCYTES ABSOLUTE COUNT 0.33 K/ L 1.18-3.74 L (BEAKER) (test code = 414) MONOCYTES ABSOLUTE COUNT (BEAKER) 0.38 K/ L 0.24-0.36 H (test code = 415) EOSINOPHILS ABSOLUTE COUNT 0.02 K/ L 0.04-0.36 L (BEAKER) (test code = 416) BASOPHILS ABSOLUTE COUNT (BEAKER) 0.02 K/ L 0.01-0.08 (test code = 417) IMMATURE GRANULOCYTES-RELATIVE 1 % 0-1 PERCENT (BEAKER) (test code = 2801) TISSUE [id number] 15:15:00Surgical Pathology Report Case: [id number] Authorizing Provider: Obed James MD Collected: 08/13/2019 0950 Ordering Location: [facility] Endoscopy Received: 08/13/2019 1421 Services Pathologist: Constantine [...] POLYP, MULTIPLE. Signing Pathologist Direct Phone Line: [phone] signed by Constantine Linn MD on 08/14/2019 at 3:15 [id number] colonoscopyA. Small bowel, NOS, small bowel biopsy and antrum biopsy; B. Polyp, colon sigmoid, sigmoid polyp - multipleA. Received in 10% formaldehyde with patient's demographic information and surgical accession number are four nguyen-villalobos tissue fragments, 0.6 cm in aggregate. Submitted in toto in block A1. B. Received in 10% formaldehyde with patient's demographic information and surgical accession number are multiple nguyen-villalobos tissue fragments, 0.5 cm in aggregate. Submitted in toto in block B1. HL/plPerformed. [facility], Department of Pathology, [address] [place] [address], [facility], [address] [place] [address], [facility], [facility] of [facility], [address] [place] [address], RFU W/PLT COUNT & AUTO [id number] 07:33:00 Test Item Value Reference Range Interpretation Comments WHITE BLOOD CELL COUNT (BEAKER) 5.3 K/ L 3.5-10.5 (test code = 775) RED BLOOD CELL COUNT (BEAKER) 3.75 M/ L 3.93-5.22 L (test code = 761) HEMOGLOBIN (BEAKER) (test code = 9.8 GM/DL 11.2-15.7 L 410) HEMATOCRIT (BEAKER) (test code = 33.1 % 34.1-44.9 L 411) MEAN CORPUSCULAR VOLUME (BEAKER) 88.3 fL 79.4-94.8 (test code = 753) MEAN CORPUSCULAR HEMOGLOBIN 26.1 pg 25.6-32.2 (BEAKER) (test code = 751) MEAN CORPUSCULAR HEMOGLOBIN CONC 29.6 GM/DL 32.2-35.5 L (BEAKER) (test code = 752) RED CELL DISTRIBUTION WIDTH 18.8 % 11.7-14.4 H (BEAKER) (test code = 412) PLATELET COUNT (BEAKER) (test code 60 K/CU MM 150-450 L = 756) MEAN PLATELET VOLUME (BEAKER) 10.2 fL 9.4-12.3 (test code = 754) NUCLEATED RED BLOOD CELLS (BEAKER) 0 /100 WBC 0-0 (test code = 413) NEUTROPHILS RELATIVE PERCENT 79 % (BEAKER) (test code = 429) LYMPHOCYTES RELATIVE PERCENT 11 % (BEAKER) (test code = 430) MONOCYTES RELATIVE PERCENT 8 % (BEAKER) (test code = 431) EOSINOPHILS RELATIVE PERCENT 1 % (BEAKER) (test code = 432) BASOPHILS RELATIVE PERCENT 1 % (BEAKER) (test code = 437) NEUTROPHILS ABSOLUTE COUNT 4.19 K/ L 1.56-6.13 (BEAKER) (test code = 670) LYMPHOCYTES ABSOLUTE COUNT 0.56 K/ L 1.18-3.74 L (BEAKER) (test code = 414) MONOCYTES ABSOLUTE COUNT (BEAKER) 0.43 K/ L 0.24-0.36 H (test code = 415) EOSINOPHILS ABSOLUTE COUNT 0.03 K/ L 0.04-0.36 L (BEAKER) (test code = 416) BASOPHILS ABSOLUTE COUNT (BEAKER) 0.03 K/ L 0.01-0.08 (test code = 417) IMMATURE GRANULOCYTES-RELATIVE 1 % 0-1 PERCENT (BEAKER) (test code = 2801) ALPHA FETOPROTEIN (AFP), TUMOR [id number] 19:11:00 Test Item Value Reference Range Interpretation Comments ALPHA-FETOPROTEIN (BEAKER) (test 2.8 ng/mL <10.0 code = 1094) BASIC METABOLIC [id number] 13:49:00 Test Item Value Reference Range Interpretation Comments SODIUM (BEAKER) 141 meq/L 136-145 (test code = 381) POTASSIUM (BEAKER) 4.3 meq/L 3.5-5.1 (test code = 379) CHLORIDE (BEAKER) 106 meq/L 98-107 (test code = 382) CO2 (BEAKER) (test 28 meq/L 22-29 code = 355) BLOOD UREA NITROGEN 14 mg/dL 7-21 (BEAKER) (test code = 354) CREATININE (BEAKER) 0.83 mg/dL 0.57-1.25 (test code = 358) GLUCOSE RANDOM 115 mg/dL 70-105 H (BEAKER) (test code = 652) CALCIUM (BEAKER) 8.9 mg/dL 8.4-10.2 (test code = 697) EGFR (BEAKER) (test 68 mL/min/1.73 ESTIMA JACQUELYN GFR IS code = 1092) sq m NOT ACCURATE CREATININE CLEARANCE IN PREDICTING GLOMERULAR FILTRATION RATE . ESTIMATED GFR I S NOT APPLICABLE FOR DIALYSIS PATIEN TS. Specimen slightly ictericHEPATIC FUNCTION [id number] 13:49:00 Test Item Value Reference Range Interpretation Comments TOTAL PROTEIN (BEAKER) (test code = 7.0 gm/dL 6.0-8.3 770) ALBUMIN (BEAKER) (test code = 1145) 3.1 g/dL 3.5-5.0 L BILIRUBIN TOTAL (BEAKER) (test code 1.7 mg/dL 0.2-1.2 H = 377) BILIRUBIN DIRECT (BEAKER) (test 0.8 mg/dL 0.1-0.5 H code = 706) ALKALINE PHOSPHATASE (BEAKER) (test 152 U/L 40-150 H code = 346) AST (SGOT) (BEAKER) (test code = 30 U/L 5-34 353) ALT (SGPT) (BEAKER) (test code = 18 U/L 6-55 347) Specimen slightly ictericCBC W/PLT COUNT & AUTO [id number] 13:40:00 Test Item Value Reference Range Interpretation Comments WHITE BLOOD CELL COUNT (BEAKER) 4.7 K/ L 3.5-10.5 (test code = 775) RED BLOOD CELL COUNT (BEAKER) 3.67 M/ L 3.93-5.22 L (test code = 761) HEMOGLOBIN (BEAKER) (test code = 8.9 GM/DL 11.2-15.7 L 410) HEMATOCRIT (BEAKER) (test code = 31.4 % 34.1-44.9 L 411) MEAN CORPUSCULAR VOLUME (BEAKER) 85.6 fL 79.4-94.8 (test code = 753) MEAN CORPUSCULAR HEMOGLOBIN 24.3 pg 25.6-32.2 L (BEAKER) (test code = 751) MEAN CORPUSCULAR HEMOGLOBIN CONC 28.3 GM/DL 32.2-35.5 L (BEAKER) (test code = 752) RED CELL DISTRIBUTION WIDTH 22.2 % 11.7-14.4 H (BEAKER) (test code = 412) PLATELET COUNT (BEAKER) (test code 69 K/CU MM 150-450 L = 756) MEAN PLATELET VOLUME (BEAKER) 11.3 fL 9.4-12.3 (test code = 754) NUCLEATED RED BLOOD CELLS (BEAKER) 0 /100 WBC 0-0 (test code = 413) NEUTROPHILS RELATIVE PERCENT 76 % (BEAKER) (test code = 429) LYMPHOCYTES RELATIVE PERCENT 13 % (BEAKER) (test code = 430) MONOCYTES RELATIVE PERCENT 9 % (BEAKER) (test code = 431) EOSINOPHILS RELATIVE PERCENT 1 % (BEAKER) (test code = 432) BASOPHILS RELATIVE PERCENT 1 % (BEAKER) (test code = 437) NEUTROPHILS ABSOLUTE COUNT 3.57 K/ L 1.56-6.13 (BEAKER) (test code = 670) LYMPHOCYTES ABSOLUTE COUNT 0.62 K/ L 1.18-3.74 L (BEAKER) (test code = 414) MONOCYTES ABSOLUTE COUNT (BEAKER) 0.41 K/ L 0.24-0.36 H (test code = 415) EOSINOPHILS ABSOLUTE COUNT 0.05 K/ L 0.04-0.36 (BEAKER) (test code = 416) BASOPHILS ABSOLUTE COUNT (BEAKER) 0.03 K/ L 0.01-0.08 (test code = 417) IMMATURE GRANULOCYTES-RELATIVE 0 % 0-1 PERCENT (BEAKER) (test code = 2801) PROTHROMBIN [id number] 13:37:00 Test Item Value Reference Range Interpretation Comments PROTIME (BEAKER) (test code = 16.3 seconds 11.9-14.2 H 759) INR (BEAKER) (test code = 370) 1.4 <=5.9 Effective 03/14/2019: PT Reference Range ChangeNew: 11.9-14.2 Previous: 11.7- 14.7RECOMMENDED COUMADIN/WARFARIN INR THERAPY RANGESSTANDARD DOSE: 2.0-3.0 Includes: PROPHYLAXIS for venous thrombosis, systemic embolization; TREATMENT for venous thrombosis and/or pulmonary embolus.HIGH RISK: Target INR is2.5-3.5 for patients wiht mechanical heart valves.TISSUE [id number] 09:29:00Surgical Pathology Report Case: [id number] Authorizing Provider: Obed James MD Collected: 08/07/2018 0914 Ordering Location: [facility] [place] Endoscopy Received: 08/07/2018 1134 Services Pathologist: Constantine Linn MD Specimens: A) - Small Bowel, NOS B) -Antrum PART A SMALL INTESTINE, BIOPSY:SMALL INTESTINAL MUCOSA WITH PRESERVED VILLOUS ARCHITECTURE.NO GRANULOMAS, ULCERATION, DYSPLASIA, OR INVASIVE CARCINOMA SEEN.PART B GASTRIC ANTRUM, BIOPSY:MILD CHRONIC INACTIVE GASTRITIS.WARTHIN STARRY STAIN FOR HELICOBACTER IS NEGATIVE. Signing Pathologist Direct Phone Line: [phone] signed by Constantine Linn MD on 08/09/2018 at 9:29 [id number], [id number] screening A. Small bowel. B. Antrum Specimen is received in two containers of formalin both labeled with the patient's information.Specimen A: Labeled "small bowel biopsy" consists of a 0.2 cm fragment of villalobos tissue submitted in A1.Specimen B: Labeled "antrum" consists of two fragments of villalobos tissue measuring 0.1 and 0.3 cm, submitted in B1. CG/ew PERFORMED. The following special studies were performedon this case and the interpretation is incorporated in the diagnostic report above:BLOCK B1- WARTHINSTARRYTISSUE [id number] 08:31:00Surgical Pathology Report Case: [id number] Authorizing Provider: Obed James MD Collected: 01/27/2018 1140 Ordering Location: [facility] [place] Endoscopy Received: 01/27/2018 1533 Services Pathologist: Constantine Linn MD Specimen: Biopsy, Gastric, ANTRAL BX/FORCEP PART A GASTRIC ANTRUM BIOPSY:MILD CHRONIC INACTIVE GASTRITIS.WARTHIN STARRY STAIN FOR HELICOBACTER IS NEGATIVE. Signing Pathologist Direct Phone Line: [phone] signed by Constantine Linn MDon 01/30/2018 at 8:31 [id number] cirrhosis. Gastric antrum biopsy In formalin labeled "biopsy, gastric", description "antral biopsy" are three fragments measuring 0.6 x 0.5 x 0.1 cm in aggregate. Entirely submitted A1. DB/bc The following special studies were performed on this case and the interpretation is incorporated in the diagnostic report above:BLOCK A1- GALLO BRUCE, ABDOMEN, [id number] 09:41:00Referring: Dr. 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 The main portal vein measures up to a maximum of 1.5 cm in diameter. Impression: 1. Hepatic cirrhosis. No suspicious enhancing hepatic lesions are seen. 2. Splenomegaly with findings of portal hypertension. 3. Decrease in the partially occlusive thrombus in the main portal and superior mesenteric veins. Signed: Lashae Meraz MDReport Verified Date/Time: 01/19/2018 09:41:39 Reading Location: [facility] Diagnostic Imaging Reading Room - [place] [address] Electronically signed by: LASHAE MERAZ M.D.on 01/19/2018 09:41 AMPOCT-CREATININE 2018-01-19 08:28:00 Test Item Value Reference Range Interpretation Comments POC-CREATININE 0.7 mg/dL 0.6-1.3 TESTED AT [place] [address] ([facility]) (test [place] code = 1859) [address] POC-EGFR (HAO) 83 mL/min/1.73M2 (test code = 1860) MR, ABDOMEN, [id number] 15:45:00Referring: Dr. Eric Morel for Exam:- >cirrhosis, screen for cancer, hx of portal and [...] BONES AND SOFT TISSUES: No destructive osseous le aubrie. IMPRESSION: Stable examination when compared to 11/24/2016. No new liver lesion. Cirrhosis, splenomegaly, and findings of portal hypertension. No significant ascites. 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 Signed: [facility] Verified Date/Time: 07/29/2017 15:45:59 Reading Location: [address] Radiology Reading Room [id number] 10:20:00 Test Item Value Reference Range Interpretation Comments POC-CREATININE 0.8 mg/dL 0.6-1.[address] [facility] 6720 (HAO) (test [place] code = 1859) [address] POC-EGFR (HAO) 72 mL/min/1.73M2 (test code = 1860) TISSUE [id number] 13:53:00Surgical Pathology Report Case: [id number] Authorizing Provider: Obed James MD Collected: 03/21/2017 0946 Ordering Location: [facility] [place] Endoscopy Received: 03/21/2017 1202 Services Pathologist: Re Engel MD Specimen: Biopsy, Gastric, ANTRAL BX/FORCEP STOMACH, ANTRUM, BIOPSY: - ANTRAL MUCOSA WITH CHRONIC INACTIVE GASTRITIS, MILD MUCOSAL CONGESTION, AND INTESTINAL MET APLASIA [id number] ascitesAntrum gastric biopsyThe specimen is received in a formalin-filled container and labeled with the patient's information and labeled "antral gastric biopsy" and consists of a 0.1 cm fragment of villalobos soft tissue, submitted entirely A1. CG/plPerformed.The following special studies were performedon this case and the interpretation is incorporated in the diagnostic report above:Warthin Starry stain negative for Helicobacter pylori organisms. [id number] 07:58:00 Test Item Value Reference Range Interpretation Comments POC-POTASSIUM 4.8 meq/L 3.6-5.5 TESTED AT [facility] C 6720 (BEAKER) (test code [facility] [address] = 1540) CBC W/PLT COUNT & AUTO [id number] 12:57:00 Test Item Value Reference Range Interpretation Comments WHITE BLOOD CELL COUNT (BEAKER) 6.4 K/ L 4.0-10.0 (test code = 775) RED BLOOD CELL COUNT (BEAKER) 3.89 M/ L 4.00-5.00 L (test code = 761) HEMOGLOBIN (BEAKER) (test code = 13.3 GM/DL 12.0-15.0 410) HEMATOCRIT (BEAKER) (test code = 38.7 % 36.0-45.0 411) MEAN CORPUSCULAR VOLUME (BEAKER) 99.6 fL 82.0-99.0 H (test code = 753) MEAN CORPUSCULAR HEMOGLOBIN 34.2 pg 27.0-33.0 H (BEAKER) (test code = 751) MEAN CORPUSCULAR HEMOGLOBIN CONC 34.3 GM/DL 32.0-36.0 (BEAKER) (test code = 752) RED CELL DISTRIBUTION WIDTH 13.2 % 10.3-14.2 (BEAKER) (test code = 412) PLATELET COUNT (BEAKER) (test code 62 K/CU MM 150-430 L = 756) MEAN PLATELET VOLUME (BEAKER) 8.6 fL 6.5-10.5 (test code = 754) NUCLEATED RED BLOOD CELLS (BEAKER) 0 /100 WBC 0-0 (test code = 413) NEUTROPHILS RELATIVE PERCENT 68 % (BEAKER) (test code = 429) LYMPHOCYTES RELATIVE PERCENT 21 % (BEAKER) (test code = 430) MONOCYTES RELATIVE PERCENT 7 % (BEAKER) (test code = 431) EOSINOPHILS RELATIVE PERCENT 3 % (BEAKER) (test code = 432) BASOPHILS RELATIVE PERCENT 1 % (BEAKER) (test code = 437) NEUTROPHILS ABSOLUTE COUNT 4.39 K/ L 1.80-8.00 (BEAKER) (test code = 670) LYMPHOCYTES ABSOLUTE COUNT 1.33 K/ L 1.48-4.50 L (BEAKER) (test code = 414) MONOCYTES ABSOLUTE COUNT (BEAKER) 0.48 K/ L 0.00-1.30 (test code = 415) EOSINOPHILS ABSOLUTE COUNT 0.20 K/ L 0.00-0.50 (BEAKER) (test code = 416) BASOPHILS ABSOLUTE COUNT (BEAKER) 0.04 K/ L 0.00-0.20 (test code = 417) 0.00ALPHA FETOPROTEIN (AFP), TUMOR [id number] 12:30:00 Test Item Value Reference Range Interpretation Comments ALPHA-FETOPROTEIN (BEAKER) (test 3.1 ng/mL <10.0 code = 1094) Effective 09/03/2014: Reference Range ChangeNew: <10.0 Previous: 0.0-8.0 HEPATIC FUNCTION [id number] 12:10:00 Test Item Value Reference Range Interpretation Comments TOTAL PROTEIN (BEAKER) (test code = 7.1 gm/dL 6.0-8.3 770) ALBUMIN (BEAKER) (test code = 1145) 3.2 g/dL 3.5-5.0 L BILIRUBIN TOTAL (BEAKER) (test code 1.1 mg/dL 0.2-1.2 = 377) BILIRUBIN DIRECT (BEAKER) (test 0.4 mg/dL 0.1-0.5 code = 706) ALKALINE PHOSPHATASE (BEAKER) (test 143 U/L 40-150 code = 346) AST (SGOT) (BEAKER) (test code = 28 U/L 5-34 353) ALT (SGPT) (BEAKER) (test code = 14 U/L 6-55 347) BASIC METABOLIC [id number] 12:10:00 Test Item Value Reference Range Interpretation Comments SODIUM (BEAKER) 139 meq/L 136-145 (test code = 381) POTASSIUM (BEAKER) 5.0 meq/L 3.5-5.1 (test code = 379) CHLORIDE (BEAKER) 106 meq/L 98-107 (test code = 382) CO2 (BEAKER) (test 27 meq/L 22-29 code = 355) BLOOD UREA NITROGEN 11 mg/dL 7-21 (BEAKER) (test code = 354) CREATININE (BEAKER) 0.84 mg/dL 0.57-1.25 (test code = 358) GLUCOSE RANDOM 100 mg/dL 70-105 (BEAKER) (test code = 652) CALCIUM (BEAKER) 9.0 mg/dL 8.4-10.2 (test code = 697) EGFR (BEAKER) (test 68 mL/min/1.73 ESTIMA JACQUELYN GFR IS code = 1092) sq m NOT ACCURATE CREATININE CLEARANCE IN PREDICTING GLOMERULAR FILTRATION RATE . ESTIMATED GFR I S NOT APPLICABLE FOR DIALYSIS PATIEN TS. [id number] 12:01:00 Test Item Value Reference Range Interpretation Comments FIBRINOGEN LEVEL (BEAKER) (test 269 mg/dl 225-434 code = 658) PROTHROMBIN [id number] 12:00:00 Test Item Value Reference Range Interpretation Comments PROTIME (BEAKER) (test code = 14.5 seconds 11.7-14.7 759) INR (BEAKER) (test code = 370) 1.1 <=5.9 RECOMMENDED COUMADIN/WARFARIN INR THERAPY RANGESSTANDARD DOSE: 2.0 - 3.0 Includes: PROPHYLAXIS forvenous thrombosis, systemic embolization; TREATMENT for venous thrombosis and/or pulmonary embolus.HIGH RISK: Target INR is 2.5-3.5 for patients with mechanical heart valves.
--- NOTE | 2020-12-09 12:11 | RAD REPORT ---
EXAM DESCRIPTION: Theron Single View12/09/2020 12:05 pm CLINICAL HISTORY: Cough COMPARISON: 2019 FINDINGS: Mild to moderate bilateral pulmonary opacities may represent pneumonia. Heart remains enlarged
--- NOTE | 2020-12-09 12:27 | RAD REPORT ---
EXAM DESCRIPTION: CT - Stone Protocol - 12/09/2020 12:02 pm CLINICAL HISTORY: Abdominal pain. COMPARISON: 2018 TECHNIQUE: Computed axial tomography of the abdomen pelvis was obtained without oral or IV contrast. Lack of IV and oral contrast limits evaluation of solid organs, bowel, and vessels. Coronal reformat jacquelyn images were obtained and reviewed. All CT scans are performed using dose optimization technique as appropriate and may include automated exposure control or mA/KV adjustment according to patient size. FINDINGS: Mild to moderate bilateral pulmonary opacities A renal calculus is not seen. An ureteral calculus is not noted. A bladder calculus is not present. T he bladder is distended A cirrhotic liver. Recannulization of the umbilical vein. Mild splenomegaly. The pancreas and adrenals appear grossly normal. Bilateral moderate hydronephrosis. Ureters are dilated. The bladder is distended. There is no evidence of diverticulitis. Small to moderate amount of ascites IMPRESSION: Moderate bilateral hydronephrosis and hydroureter. The bladder is distended Cirrhosis [id number] bilateral pulmonary opacities may represent pneumonia
[2020-12-09] MEDS ORDERED: NA CHLORIDE 0.9% 1,000 ML ONE (12:49)
[2020-12-09 12:52] LABS: Absolute Lymphocytes (CBC) 0.5 K/uL (0.7-4.9); Basophils % 0.4 % (0-1.3); Hematocrit 30.1 % (36.0-45.0); Lymphocytes % 11.5 % (15.3-44.8); MPV 10.2 fL (7.6-11.3); RBC Red Blood Cell Count 3.33 M/uL (3.86-4.86)
[2020-12-09 13:11] LABS: ALT/SGPT 69 U/L (12-78); AST/SGOT 36 U/L (15-37); Albumin 2.4 g/dL (3.4-5.0); Alkaline Phosphatase 136 U/L (45-117); BUN Blood Urea Nitrogen 29 mg/dL (7-18); Bicarbonate 32 mmol/L (21-32); Bilirubin Direct 1.1 mg/dL (0-0.2); Bilirubin Total 3.2 mg/dL (0.2-1.0); Glucose Level 141 mg/dL (74-106); Lipase 344 U/L (73-393); Magnesium 2.7 mg/dL (1.8-2.4); NT PRO-BNP 603 pg/mL (<125); Potassium 4.6 mmol/L (3.5-5.1); Protein, Total 6.7 g/dL (6.4-8.2); Sodium Level 139 mmol/L (136-145); Troponin (Emerg Dept Use Only) < 0.02 ng/mL (0.0-0.045)
[2020-12-09 13:15] LABS: Protime INR 1.21
[2020-12-09 13:20] LABS: Anisocytosis 3+; Blood Morphology Comment NOTED (NOT SEEN); Platelet Estimate DECR; White Blood Cell Scan OK (OK)
[2020-12-09 13:21] LABS: Basophilic Stippling 1+; Hypochromasia 2+; Polychromasia SLIGHT; Target Cells 1+
[2020-12-09 14:18] LABS: Urine Blood 2+ (NEG); Urine Glucose NEGATIVE (NEG); Urine Protein NEGATIVE (NEG); Urine pH 5.5 (5.0-7.0)
--- NOTE | 2020-12-09 14:31 | ER ---
Nurse's Notes [facility] Name: Nelda Ramírez Age: 70 yrs Sex: Female : 1950 Arrival Date: 12/09/2020 Time: 10:20 Bed 13 Private MD: Diagnosis: Abnormal uterine and vaginal bleeding, unspecified;Unspecified cirrhosis of liver-MARSHALL;Encephalopathy, unspecified-HEPATIC;Anemia, unspecified;Pneumonia, unspecified organism Presentation: 12/09 10:20 Chief complaint: Patient states: Heavy vaginal bleeding began again today. Patient ll1 feels weak again. 6 pads used today. Sent by PCP for eval. Released yesterday from a hospital for the same issue. Heavy vaginal bleeding with blood transfusion given last week. History of cirrhosis, confusion per EMS. EMS states: VSS. Fingerstick 144. Chief complaint:. Coronavirus screen: Client denies travel out of the [place] in the last 14 days. At this time, the client does not indicate any symptoms associated with coronavirus-19. Ebola Screen: Patient denies travel to an Ebola-affected area in the 21 days before illness onset. Initial Sepsis Screen: Does the patient meet any 2 criteria? No. Patient's initial sepsis screen is negative. Does the patient have a suspected source of infection? Yes: Acute abdominal pain Other: vag bleed. Risk Assessment: Do you want to hurt yourself or someone else? Patient reports no desire to harm self or others. Onset of symptoms was December 09, 2020. 10:20 Method Of Arrival: EMS ll1 10:20 Acuity: SERGIO 3 ll1 Triage Assessment: 19:31 : Reports vaginal bleeding that is light flow. dm14 Historical: - Allergies: 10:24 Aspirin; ll1 10:24 PENICILLINS; ll1 10:24 Cipro; ll1 - PMHx: 10:24 CHF; Cirrhosis; liver/kidney disease; Hypertension; ll1 - Immunization history:: Flu vaccine is up to date. - Social history:: Smoking status: Patient denies any tobacco usage or history of. - Family history:: not pertinent. Screenin:00 Abuse screen: Denies threats or abuse. Denies injuries from another. Nutritional dm14 screening: No deficits noted. Tuberculosis screening: No symptoms or risk factors identified. Fall Risk Ambulatory Aid- Crutches/Cane/Walker (15 pts). Assessment: 10:25 General: Appears in no apparent distress. comfortable, Behavior is calm, drowsy, Smells dm14 of Reports. Pain: Denies pain. Neuro: Level of Consciousness is listless. GI: Bruising ++ to lower abdomen. Daughter states she doesn't know what it is from. : Pt wearing attends. Incontinent of urine and moderate amount of vaginal bleeding noted. Dr. Serrano made aware of same. Musculoskeletal: Swelling present in lateral aspect of right calf, right ankle, lateral aspect of right foot, right calf, right Achilles, right heel, medial aspect of right calf, medial aspect of right foot, right verma, anterior aspect of right ankle, dorsum of right foot and left leg. 11:30 Reassessment: Dr. Serrano at bedside assessing patient. ss 11:59 Reassessment: Patient in CT at this time. ss 16:00 Reassessment: Pt's daughter remains at bedside. Pt sleeping most of the time. Swift dm14 catheter draining adequate amounts of urine, IV infusing at 75ml/hr. as ordered. 17:15 Reassessment: Pt calling out frequently at this time. Daughter present and uncertain dm14 what her Mom wants. Daughter states "she is so confused". Taken per stretcher for an MRI at this time Patient denies pain at this time. 17:50 Reassessment: Returned from MRI at 1750. Pt had been incontinent of a large soft BM, dm14 Sandrita-care done. small amount of fresh vaginal bleeding noted. Vital Signs: 10:20 Pain 0/10; ll1 10:23 BP 115 / 54; Pulse 62; Resp 15; Temp 97.6(O); Pulse Ox 97% on R/A; dh3 13:33 BP 147 / 65; Pulse 57; Resp 14; Pulse Ox 97% on R/A; ss 17:15 BP 128 / 57; Pulse 78; Resp 16; Pulse Ox 98% ; dm14 ED Course: 10:20 Patient arrived in ED. ll1 10:23 Triage completed. ll1 10:24 Arm band placed on Patient placed in an exam room, on a stretcher. ll1 10:39 Bakari Serrano MD is Attending Physician. [facility] 10:40 Latoya Rivero RN is Primary Nurse. dm14 12:03 CT Stone Protocol In Process Unspecified. EDMS 12:04 XRAY Chest (1 view) In Process Unspecified. EDMS 12:27 Inserted saline lock: 22 gauge in right antecubital area, using aseptic technique. ss Blood collected. 12:40 EKG done, by ED staff, reviewed by Bakari Serrano MD. [facility] 13:00 Straight cath inserted, using sterile technique, 14 Fr. Specimen obtained. Returned dm14 jose armando urine. Patient tolerated well. 13:08 Swift cath inserted, using sterile technique, 16 Fr., by nj, balloon inflated, to [facility] gravity drainage, returned jose armando urine. Patient tolerated well. 15:17 CT Head Brain wo Cont In Process Unspecified. EDMS 15:59 initiated transfer to [facility], spoke to Sita Hernandez. bd 16:00 Patient has correct armband on for positive identification. Bed in low position. Side dm14 rails up X2. Adult w/ patient. 17:50 Report given to Report given to [facility]. dm14 17:50 No provider procedures requiring assistance completed. dm14 18:13 Brain Wo Cont In Process Unspecified. EDMS 19:33 Patient transferred, IV remains in place. dm14 Administered Medications: 16:05 Not Given (PT has also received 60 mls today, administered by her daughter): Lactulose dm14 60 grams 45 ml PO once 16:15 Drug: Lasix 20 mg Route: IVP; Site: right antecubital; dm14 17:48 Follow up: Response: No adverse reaction dm14 16:20 Drug: Rocephin 2 grams Route: IV; Rate: per protocol; Site: right antecubital; dm14 17:48 Follow up: Response: No adverse reaction dm14 16:30 Drug: Zithromax 500 mg Route: IVPB; Infused Over: 1 hrs; Site: right antecubital; dm14 16:30 Drug: ProTONIX 40 mg Route: IVP; Site: right antecubital; dm14 17:48 Follow up: Response: No adverse reaction dm14 18:20 Drug: Ativan 0.5 mg Route: IVP; Site: right antecubital; ss Output: 18:30 Urine: 750ml (Swift); Total: 750ml. dm14 Outcome: 14:30 ER care complete, transfer ordered by [facility] 18:30 Transferred by ground EMS to [facility], Transfer form completed. dm14 18:30 Condition: stable 19:14 Patient left the ED. mw2 19:32 Instructed on the need for transfer. dm14 Signatures: Dispatcher [employer] EDMS Julee Hernandez Corey, MD MD cha Smirch, Shelby, RN RN Wendi Cason 3 Paloma Tolentino mw2 Mariluz Arroyo RN RN [facility] Latoya Rivero RN RN dm14 Corrections: (The following items were deleted from the chart) 16:44 16:34 General: Appears in no apparent distress. comfortable, Behavior is calm, drowsy, dm14 Smells of Reports dm14 : 16:34 Pain: Denies pain. dm14 dm14 16:44 16:34 Neuro: Level of Consciousness is listless, dm14 dm14 16:44 16:34 GI: Bruising ++ to lower abdomen. Daughter states she doesn't know what it is dm14 from dm14 :44 16:34 : Pt wearing attends. Incontinent of urine and moderate amount of vaginal dm14 bleeding noted. Dr. Serrano made aware of same dm14 16: 16:34 Musculoskeletal: Swelling present in lateral aspect of right calf, right ankle, dm14 lateral aspect of right foot, right calf, right Achilles, right heel, medial aspect of right calf, medial aspect of right foot, right verma, anterior aspect of right ankle, dorsum of right foot and left leg dm14
--- NOTE | 2020-12-09 14:31 | EDPHYS ---
Physician Documentation [facility] Name: Nelda Ramírez Age: 70 yrs Sex: Female : 1950 Arrival Date: 12/09/2020 Time: 10:20 Bed 13 Private MD: ED Physician Bakari Serrano HPI: 12/09 11:35 This 70 yrs old Female presents to ER via EMS with complaints of Vaginal julieta Bleeding. 11:35 The patient presents with pelvic pain, vaginal bleeding that is light, moderate. Onset: julieta The symptoms/episode began/occurred 3 day(s) ago. Modifying factors: The symptoms are alleviated by nothing, the symptoms are aggravated by nothing. Associated signs and symptoms: The patient has no apparent associated signs or symptoms. Severity of symptoms: At their worst the symptoms were mild, in the emergency department the symptoms are unchanged. The patient is not sexually active. The patient has experienced similar episodes in the past, a few times. Historical: - Allergies: 10:24 Aspirin; ll1 10:24 PENICILLINS; ll1 10:24 Cipro; ll1 - PMHx: 10:24 CHF; Cirrhosis; liver/kidney disease; Hypertension; ll1 - Immunization history:: Flu vaccine is up to date. - Social history:: Smoking status: Patient denies any tobacco usage or history of. - Family history:: not pertinent. ROS: 11:35 Constitutional: Negative for fever, chills, and weight loss, Eyes: Negative for injury, julieta pain, redness, and discharge, ENT: Negative for injury, pain, and discharge, Neck: Negative for injury, pain, and swelling, Cardiovascular: Negative for chest pain, palpitations, and edema, Respiratory: Negative for shortness of breath, cough, wheezing, and pleuritic chest pain, Abdomen/GI: Negative for abdominal pain, nausea, vomiting, diarrhea, and constipation, Back: Negative for injury and pain, MS/Extremity: Negative for injury and deformity, Neuro: Negative for headache, weakness, numbness, tingling, and seizure, Psych: Negative for depression, anxiety, suicide ideation, homicidal ideation, and hallucinations, Allergy/Immunology: Negative for hives, rash, and allergies, Endocrine: Negative for neck swelling, polydipsia, polyuria, polyphagia, and marked weight changes, Hematologic/Lymphatic: Negative for swollen nodes, abnormal bleeding, and unusual bruising. 11:35 : Positive for vaginal bleeding. Exam: 11:35 Constitutional: This is a well developed, well nourished patient who is awake, alert, julieta and in no acute distress. Head/Face: Normocephalic, atraumatic. Eyes: Pupils equal round and reactive to light, extra-ocular motions intact. Lids and lashes normal. Conjunctiva and sclera are non-icteric and not injected. Cornea within normal limits. Periorbital areas with no swelling, redness, or edema. ENT: Nares patent. No nasal discharge, no septal abnormalities noted. Tympanic membranes are normal and external auditory canals are clear. Oropharynx with no redness, swelling, or masses, exudates, or evidence of obstruction, uvula midline. Mucous membranes moist. Neck: Trachea midline, no thyromegaly or masses palpated, and no cervical lymphadenopathy. Supple, full range of motion without nuchal rigidity, or vertebral point tenderness. No Meningismus. Chest/axilla: Normal chest wall appearance and motion. Nontender with no deformity. No lesions are appreciated. Cardiovascular: Regular rate and rhythm with a normal S1 and S2. No gallops, murmurs, or rubs. Normal PMI, no JVD. No pulse deficits. Respiratory: Lungs have equal breath sounds bilaterally, clear to auscultation and percussion. No rales, rhonchi or wheezes noted. No increased work of breathing, no retractions or nasal flaring. Abdomen/GI: Soft, non-tender, with normal bowel sounds. No distension or tympany. No guarding or rebound. No evidence of tenderness throughout. Back: No spinal tenderness. No costovertebral tenderness. Full range of motion. MS/ Extremity: Pulses equal, no cyanosis. Neurovascular intact. Full, normal range of motion. Neuro: Awake and alert, GCS 15, oriented to person, place, time, and situation. Cranial nerves II-XII grossly intact. Motor strength 5/5 in all extremities. Sensory grossly intact. Cerebellar exam normal. Normal gait. Psych: Awake, alert, with orientation to person, place and time. Behavior, mood, and affect are within normal limits. 11:35 Skin: Appearance: Color: pale, Temperature: warm, Moisture: normal moisture, petechiae, not noted, ecchymosis, not noted, flushing, not noted. 14:00 Abdomen/GI: Inspection: distension, Bowel sounds: normal, Palpation: mild abdominal julieta tenderness, in the suprapubic area, right lower quadrant and left lower quadrant, Liver: no appreciated palpable abnormalities, Hernia: not appreciated, lower abdomen ecchymosis. 14:19 : CVA tenderness, is absent, Pelvic Exam: External exam: is normal, Speculum exam: julieta moderate bleeding, os that is closed, bimanual exam reveals os that is closed, Bladder: is normal, Rectal exam: is normal, no gross blood is appreciated, stool guaiac is negative, no hemorrhoids, no masses palpable, Rectal tone: normal, Sexual behavior: the patient is sexually active. Vital Signs: 10:20 Pain 0/10; ll1 10:23 BP 115 / 54; Pulse 62; Resp 15; Temp 97.6(O); Pulse Ox 97% on R/A; dh3 13:33 BP 147 / 65; Pulse 57; Resp 14; Pulse Ox 97% on R/A; ss 17:15 BP 128 / 57; Pulse 78; Resp 16; Pulse Ox 98% ; dm14 MDM: 10:39 Patient medically screened. julieta 11:38 Differential diagnosis: menometrorrhagia, menorrhea, uterine fibroids, urinary tract julieta infection. Data reviewed: vital signs, nurses notes, lab test result(s), EKG, radiologic studies, CT scan, plain films. Data interpreted: natural history collections curator: rate is 62 beats/min, rhythm is regular, Pulse oximetry: on room air is 97 %. Test interpretation: by ED physician or midlevel provider: ECG, plain radiologic studies. Counseling: I had a detailed discussion with the patient and/or guardian regarding: the historical points, exam findings, and any diagnostic results supporting the discharge/admit diagnosis, lab results, radiology results. 12/09 11:35 Order name: Basic Metabolic Panel [facility] 12/09 11:35 Order name: CBC with Diff; Complete Time: 13:39 julieta 12/09 11:35 Order name: LFT's 12/09 11:35 Order name: Magnesium julieta 12/09 11:35 Order name: NT PRO-BNP; Complete Time: 13:39 12/09 11:35 Order name: PT-INR; Complete Time: 13:39 12/09 11:35 Order name: Troponin (emerg Dept Use Only); Complete Time: 13:39 [facility] 12/09 11:35 Order name: Lipase; Complete Time: 13:39 [facility] 12/09 11:35 Order name: Type And Screen; Complete Time: 16:24 [facility] 12/09 11:35 Order name: Urine Culture [facility] 12/09 11:35 Order name: AMMONIA; Complete Time: 13:39 [facility] 12/09 11:36 Order name: Basic Metabolic Panel; Complete Time: 13:39 [facility] 12/09 11:36 Order name: Liver (Hepatic) Function; Complete Time: 13:39 [facility] 12/09 11:36 Order name: Magnesium; Complete Time: 13:39 [facility] 12/09 11:35 Order name: XRAY Chest (1 view); Complete Time: 12:13 [facility] 12/09 11:35 Order name: CT Stone Protocol; Complete Time: 12:58 [facility] 12/09 12:15 Order name: COVID-19 : Document "Date of Symptom Onset" if Symptomatic. [facility] 12/09 12:57 Order name: CBC Smear Scan; Complete Time: 13:39 [facility] 12/09 13:19 Order name: Urine Dipstick--Ancillary (enter results); Complete Time: 14:21 12/09 14:16 Order name: CT Head Brain wo Cont; Complete Time: 16:24 [facility] 12/09 16:07 Order name: SARS-COV-2 RT PCR; Complete Time: 16:24 [facility] 12/09 17:47 Order name: Brain Wo Cont [facility] 12/09 11:35 Order name: EKG; Complete Time: 11:36 [facility] 12/09 11:35 Order name: Cardiac monitoring; Complete Time: 12:41 [facility] 12/09 11:35 Order name: EKG - Nurse/Tech; Complete Time: 12:41 [facility] 12/09 11:35 Order name: IV Saline Lock; Complete Time: 12:27 [facility] 12/09 11:35 Order name: Labs collected and sent; Complete Time: 12:27 [facility] 12/09 11:35 Order name: O2 Per Protocol; Complete Time: 12:41 [facility] 12/09 11:35 Order name: O2 Sat Monitoring; Complete Time: 12:41 [facility] 12/09 11:35 Order name: Urine Dipstick-Ancillary (obtain specimen); Complete Time: 13:22 [facility] 12/09 12:53 Order name: Labs - recollect needed: recollect type \\T\\ screen. [place] pt.; Complete bd Time: 15:12 12/09 12:58 Order name: Swift; Complete Time: 13:13 [facility] 12/09 14:05 Order name: Pelvic Exam Setup; Complete Time: 15:11 [facility] Administered Medications: 16:05 Not Given (PT has also received 60 mls today, administered by her daughter): Lactulose dm14 60 grams 45 ml PO once 16:15 Drug: Lasix 20 mg Route: IVP; Site: right antecubital; dm14 17:48 Follow up: Response: No adverse reaction dm14 16:20 Drug: Rocephin 2 grams Route: IV; Rate: per protocol; Site: right antecubital; dm14 17:48 Follow up: Response: No adverse reaction dm14 16:30 Drug: Zithromax 500 mg Route: IVPB; Infused Over: 1 hrs; Site: right antecubital; dm14 16:30 Drug: ProTONIX 40 mg Route: IVP; Site: right antecubital; dm14 17:48 Follow up: Response: No adverse reaction dm14 18:20 Drug: Ativan 0.5 mg Route: IVP; Site: right antecubital; Disposition: 12/09/20 14:[address] [facility]. Diagnosis are Abnormal uterine and vaginal bleeding, unspecified, Unspecified cirrhosis of liver - MARSHALL, Encephalopathy, unspecified - HEPATIC, Anemia, unspecified, Pneumonia, unspecified organism. - Reason for transfer: Higher level of care. - Accepting physician is to hospitalist, [facility]. - Condition is Fair. - Problem is new. - Symptoms have improved. Signatures: Dispatcher [employer] EDMS Julee Hernandez Corey, MD MD cha Smirch, Shelby, GLADIS RN Paloma Tolentino mw2 Mariluz Arroyo RN RN ll1 Latoya Rivero RN RN dm14 Corrections: (The following items were deleted from the chart) 15:28 12:16 CORONAVIRUS ordered. EDMS EDMS 17:47 16:27 MR STROKE PROTOCOL+MRI.RAD.BRZ ordered. EDMS EDMS 18:06 14:27 BLOOD CULTURE*+BA.LAB.BRZ ordered. EDMS EDMS 19:14 14:30 12/09/2020 14:[address] [facility]. mw2 Diagnosis is Abnormal uterine and vaginal bleeding, unspecified; Unspecified cirrhosis of liver - MARSHALL; Encephalopathy, unspecified - HEPATIC; Anemia, unspecified; Pneumonia, unspecified organism. Reason for transfer: Higher level of care. Accepting physician is to hospitalist, [facility]. Condition is Fair. Problem is new. Symptoms have improved. julieta
--- NOTE | 2020-12-09 15:41 | RAD REPORT ---
EXAM DESCRIPTION: CT - Head Brain Wo Cont - 12/09/2020 3:17 pm CLINICAL HISTORY: Dizziness;Mental status change COMPARISON: No comparisons TECHNIQUE: Axial 5 mm thick images of the head were obtained without IV contrast. All CT scans are performed using dose optimization technique as appropriate and may include automated exposure control or mA/KV adjustment according to patient size. FINDINGS: No intracranial hemorrhage or focal mass lesion identified. No acute cortical infarction c hanges seen. Diminished attenuation along the superior aspect of the left cerebellum is believed to b e artifact of head tilt. Diminished attenuation is present in the left-side splenium of the corpus ca llosum. This is most likely ischemic though corpus callosum ischemia is relatively uncommon compared white matter or cortical ischemic change. Patient has underlying chronic ischemic change and mild atr ophy. Ventricles are in proportion to volume loss. Mastoid air cells and visualized portions of the paranasal sinuses are clear. No acute bony findings. IMPRESSION: Suspected nonhemorrhagic acute or subacute ischemic changes in the splenium of the corpu s callosum and in the adjacent parietal white matter. No intracranial hemorrhage or mass lesion. Chronic ischemic changes and atrophy are present. If tolerable by the patient, follow-up MR imaging could be performed to confirm or exclude suspected CVA.
[2020-12-09] MEDS ORDERED: AZITHROMYCIN IV 500 MG in NA CHLORIDE 0.9% 250 ML IVPB ONE (16:00)
[2020-12-09] MEDS ORDERED: FUROSEMIDE 20 MG/ 2ML VIAL ONE (16:13)
[2020-12-09] MEDS ORDERED: PANTOPRAZOLE 40 MG INJ ONE (16:13)
[2020-12-09] MEDS ORDERED: CEFTRIAXONE/SWI 1gm 2 GM/20 ML SYR ONE (16:14)
[2020-12-09] MEDS ORDERED: LORazepam 2 MG/ML VIAL ONE (18:08)
--- NOTE | 2020-12-09 19:01 | RAD REPORT ---
EXAM DESCRIPTION: MRI - Brain Wo Cont - 12/09/2020 6:13 pm CLINICAL HISTORY: TIA, multiple medical issues, history of hepatic encephalopathy COMPARISON: Head Brain Wo Cont dated 12/09/2020 TECHNIQUE: Sagittal T1-weighted images were obtained along with axial PD, heavily T2-weighted and T2 -FLAIR images. Axial DWI and ADC mapping sequences were also obtained along with coronal heavily T2-w eighted images. FINDINGS: Exam has significant motion degradation limitation with multiple sequences repeated. No intracranial hemorrhage. No defined mass lesion, mass effect or midline shift. Atrophy changes are mild. Ventricles are in proportion to any volume loss. Patient has moderate severity chronic ischemi c change throughout the cerebral white matter and minimally in each thalamus and basal ganglia. Diffusion-weighted imaging shows restricted diffusion in the splenium of the corpus callosum. This is more pronounced to the left. There is corresponding hypointense T1 and hyperintense T2/ IR signal. N o other areas of restricted diffusion identified. No extra-axial fluid collections. River-matter/white matter junction is preserved. Signal voids are seen as a normal finding in the major intracranial ve ssels. No sella or supra sella abnormality. No globe or orbital content abnormality. Mastoid air cells and paranasal sinuses are clear. Corpus callosum is not a typical site for an acute ischemic injury. There are numerous etiologies monica t can cause restricted diffusion of the corpus callosum. Given the patient's history, hepatic encepha lopathy would be the primary consideration. Signal abnormality can be seen in seizures. Metabolic disturbances such as hypernatremia or hyponatre jean carlos can give this pattern along with a Wernecke encephalopathy. Viral infection including SARS-CoV-2 has been described as a source for this type of signal abnormality. Several drugs can create this sig nal abnormality. IMPRESSION: Abnormal signal abnormality in the splenium of the corpus callosum. There is a long dif ferential for this signal pattern. Based on available history hepatic encephalopathy is the most like ly etiology. No acute ischemic injury is present. Patient has moderate severity chronic ischemic change in the cer ebral white matter and mild severity in the basal ganglia and thalamus tissues.
--- NOTE | 2020-12-11 05:42 | EKG ---
Test Date: 2020-12-09 Test Time: 12:37:59 Hr Systems Analyst: MARÍA MEASUREMENT RESULTS: Intervals: Rate: 57 SD: 144 QRSD: 94 QT: 466 QTc: 453 [place]: P: 43 SD: 144 QRS: 26 T: 46 INTERPRETIVE STATEMENTS: Sinus bradycardia with sinus arrhythmia Otherwise normal ECG Compared to ECG 09/23/2019 11:39:21 Sinus rhythm no longer present Myocardial infarct finding no longer present Electronically Signed On 12-11-20 05:36:17 FRONT OFFICE ATTENDANT by Cali Anand
== END 2020-12-09 19:14 | disposition short-term general hospital (02) ==
LOC: ER 10:15
DX: K72.90 Hepatic failure, unspecified without coma (principal); K75.81 Nonalcoholic steatohepatitis (NASH); J18.9 Pneumonia, unspecified organism; K74.60 Unspecified cirrhosis of liver; D64.9 Anemia, unspecified; N13.30 Unspecified hydronephrosis; N13.4 Hydroureter; I50.9 Heart failure, unspecified; Z20.822 Contact with and (suspected) exposure to COVID-19; Z88.0 Allergy status to penicillin; Z88.1 Allergy status to other antibiotic agents; Z88.6 Allergy status to analgesic agent
CPT/HCPCS: 87088; 85025; 87086; 80048; 36415; 82140; 86900; 83735; 86850; 85610; 86901; 80076; 81003; 84484; 83690; 83880; 70450; 76377; 74176; 71045; 70551; U0003; J1940; C9113; J0456; J0696; J7050; J7030; 51702; 93005; 96374; 96375; 99285

== ENCOUNTER 2021-09-13 12:57 | Emergency (ER) | payer OTHER ==
--- OUTSIDE RECORDS SUMMARY | 2021-09-13 13:09 | XMS REPORT | Continuity of Care Document ---
:1950 Author Organization [facility] t Address [address] [place] [address] Care Team Providers Name Role Phone Val Boyce MD Primary Care Physician RANDI HANSEN Attending Clinician Unavailable PETER JAMES Attending Clinician Unavailable HAMIDA MUNOZ Attending Clinician Unavailable POLLY Attending Clinician Unavailable Cara DEJESUS Attending Clinician Unavailable SHEFALI BUCHANAN Attending Clinician Unavailable KYARA Attending Clinician Unavailable Polly WILLSON Attending Clinician SHEFALI SOUZA Attending Clinician Unavailable HALEY Attending Clinician Unavailable JACINTA GALLARDO Attending Clinician Unavailable Lizandro WALTON Attending Clinician Unavailable JABIER CLEMENTS Attending Clinician Unavailable RANDI HANSEN Admitting Clinician Unavailable PETER JAMES Admitting Clinician Unavailable HAMIDA MUNOZ Admitting Clinician Unavailable INGRIS LOWERY Admitting Clinician Unavailable GHAZAL AMOR Admitting Clinician Unavailable ARIELLE YOST Admitting Clinician Unavailable Admitting Clinician Unavailable PATRIICA SORIA Admitting Clinician Unavailable Payers Payer Name Policy Type Policy Number Effective Date Expiration Date S [facility] MEDICARE A B [id number] 2015 00:00:00 MEDICAID OF [id number] 2016 2016 [place] 00:00:00 00:00:00 MEDICARE PART A [id number] \\T\\ B - MEDICARE [facility]-MEDICAID - [id number] 2016 2017 MEDICAID 00:00:00 00:00:00 OUT OF STATE [id number] BCBS - PPO - BCBS Problems Condition Condition Condition Status Onset Resolution Last Treating Co mments Source Name Details Category Date Date Treatment Clinician Date Cirrhosis Cirrhosis Disease Active [place] [facility] (HCCode) (HCCode) 1-14 [facility] 00:00: of 00 Medicin e Allergies, Adverse Reactions, Alerts Allergy Allergy Status Severity Reaction(s) Onset Inactive Treating Comm ents Source Name Type Date Date Clinician Ciproflo Propensi Active [facility] xacin ty to 02-18 [place] adverse 00:00: of reaction 00 Medicin s to e drug Penicill Propensi Active [facility] ins ty to 02-18 [facility] adverse 00:00: of reaction 00 Medicin s to e drug CIPROFLO Allergy Active [place] [facility] PENICILL Allergy Active [place] [facility] Social History Social Habit Start Date Stop Date Quantity Comments Source Alcohol intake 2021-07-30 2021-07-30 Ex-drinker [facility] 00:00:00 00:00:00 (finding) of Medicine Tobacco use and 2017-02-18 2017-02-18 Never used [facility] exposure 00:00:00 00:00:00 of Medicine Sex Ass[birth year] [facility] 00:00:00 00:00:00 of Medicine Smoking Status Start Date Stop Date Source Never smoker [facility] o f Medicine Medications Ordered Filled Start Stop Current Ordering Indication Dosage Frequency Signature Comments Components Source Medication Medication Date Date Medication? Clinician (SIG) Name Name RifAXIMin 2020-10 Yes 1{tbl} Take 1 Tab [facility] (XIFAXAN) 0-14 by mouth [facility] 550 MG TABS 13:10: two times o f 18 daily. Medicin e spironolact 2020-10 Yes 100mg Take 100 [facility] one 0-14 mg by [place] (ALDACTONE) 13:10: mouth of 100 MG 18 daily. Medicin tablet e lactulose 2020-10 Yes 20g Take 20 g [place] [facility] (CHRONULAC) 0-14 by mouth 3 Co llege 10 GM/15ML 13:10: times of solution 18 daily. Medicin e furosemide 2020-10- No 20mg Take 20 mg [facility] (LASIX) 20 0-14 10-14 by mouth [facility] MG tablet 13:10: 00:00 daily. of 07 :00 Medicin e rivastigmin Yes [facility] e 4.6 9-29 College MG/24HR 00:00: of PT24 00 Medicin e propranolol 2020- No 60mg Take 60 mg [facility] (INDERAL 12-18 03-04 by mouth Colleg e [place]) 60 MG 14:11: 00:00 daily. of SR capsule 49 :00 Medicin e medroxyPROG 2020- No 20mg Take 20 mg [facility] ESTERone 12-15 by mouth. Colle ge (PROVERA) 00:00: 04:59 of 10 MG 00 :00 Medicin tablet e midodrine Yes TAKE 1 [facility] (PROAMATINE 2-22 TABLET BY Col lege ) 5 MG 00:00: MOUTH of tablet 00 THREE Medicin TIMES e DAILY midodrine 2020- No TAKE 1 [facility] (PROAMATINE 2-22 10-14 TABLET BY Co llege ) 5 MG 00:00: 00:00 MOUTH of tablet 00 :00 THREE Medicin TIMES e DAILY aspirin EC 2021- No 81mg Take 81 mg [facility] 81 MG 10-25 by mouth. College tablet 00:00: 05:59 of 00 :00 Medicin e aspirin EC 2021- No 81mg Take 81 mg [facility] 81 MG 10-25 by mouth. College tablet 00:00: 05:59 of 00 :00 Medicin e furosemide Yes 20mg Take 20 mg [facility] (LASIX) 20 1-12 by mouth [facility]le [facility] MG tablet 19:21: daily. of 17 Medicin e RifAXIMin Yes 1{tbl} Take 1 Tab [facility] (XIFAXAN) 1-12 by mouth Colleg [facility] 550 MG TABS 19:21: two times o f 17 daily. Medicin e spironolact 2017- Yes 100mg Take 100 [facility] one 1-12 mg by [facility] (ALDACTONE) 19:21: mouth of 100 MG 17 daily. Medicin tablet e lactulose Yes 20g Take 20 g [place] [facility] (CHRONULAC) 1-12 by mouth 3 Co llege 10 GM/15ML 19:21: times of solution 17 daily. Medicin e Immunizations Ordered Immunization Filled Immunization Date Status Commen ts Source Name Name Influenza Hd 2020-08-15 Completed [facility] 00:00:00 of Medicine Zoster Recombinant 2020-08-15 Completed [facility] 00:00:00 of Medicine Influenza Hd 2020-08-15 Completed [facility] 00:00:00 of Medicine Zoster Recombinant 2020-08-15 Completed [facility] 00:00:00 of Medicine Pneumococcal 2019-09-06 Completed [facility] ge Polysaccharide 00:00:00 of Medicin e Pneumococcal 2019-09-06 Completed [facility] ge Polysaccharide 00:00:00 of Medicin e Vital Signs Vital Name Observation Time Observation Value Comments Source HEIGHT 2021-02-25 13:49:00 167.6 cm WEIGHT 2021-02-25 13:49:00 95.255 kg HEIGHT 2020-12-09 21:00:00 167.6 cm WEIGHT 2020-12-09 21:00:00 89.812 kg Systolic blood 2021-07-30 18:08:00 129 mm[Hg] [facility] pressure Medicine Diastolic blood 2021-07-30 18:08:00 67 mm[Hg] [facility] pressure Medicine Heart rate 2021-07-30 18:08:00 86 /min [facility] Body temperature 2021-07-30 18:08:00 36.78 Con[facility] HEIGHT 2021-03-17 15:32:00 167.6 cm WEIGHT 2021-03-17 15:32:00 92.987 kg HEIGHT 2021-03-17 15:32:00 167.6 cm WEIGHT 2021-03-17 15:32:00 92.987 kg WEIGHT 2021-03-09 06:00:00 93.396 kg WEIGHT 2021-03-08 05:00:00 95.165 kg WEIGHT 2021-03-07 06:48:00 96.208 kg WEIGHT 2021-03-05 06:00:00 96.934 kg WEIGHT 2021-03-04 06:33:00 97.569 kg WEIGHT 2021-03-03 14:00:00 97.8 kg HEIGHT 2021-03-02 10:20:00 167.6 cm WEIGHT 2021-03-02 10:20:00 99.791 kg WEIGHT 2021-03-09 06:00:00 93.396 kg WEIGHT 2021-03-08 05:00:00 95.165 kg WEIGHT 2021-03-07 06:48:00 96.208 kg WEIGHT 2021-03-05 06:00:00 96.934 kg WEIGHT 2021-03-04 06:33:00 97.569 kg WEIGHT 2021-03-03 14:00:00 97.8 kg HEIGHT 2021-03-02 10:20:00 167.6 cm WEIGHT 2021-03-02 10:20:00 99.791 kg HEIGHT 2021-02-28 12:43:00 167.6 cm WEIGHT 2021-02-28 12:43:00 99.791 kg HEIGHT 2021-02-28 12:43:00 167.6 cm WEIGHT 2021-02-28 12:43:00 99.791 kg WEIGHT 2021-02-04 12:40:00 97.024 kg Systolic blood 2020-12-18 14:11:00 115 mm[Hg] [facility] pressure Medicine Diastolic blood 2020-12-18 14:11:00 56 mm[Hg] [facility] pressure Medicine Heart rate 2020-12-18 14:11:00 92 /min [facility] Respiratory rate 2020-12-18 14:11:00 17 /min [facility] HEIGHT 2020-12-09 21:00:00 167.6 cm WEIGHT 2020-12-09 21:00:00 89.812 kg HEIGHT 2020-11-26 13:22:00 167.6 cm WEIGHT 2020-11-26 13:22:00 99.791 kg HEIGHT 2020-11-26 09:17:00 167.6 cm WEIGHT 2020-11-26 09:17:00 99.791 kg HEIGHT 2020-11-26 13:22:00 167.6 cm WEIGHT 2020-11-26 13:22:00 99.791 kg HEIGHT 2020-11-26 09:17:00 167.6 cm WEIGHT 2020-11-26 09:17:00 99.791 kg WEIGHT 2020-10-24 05:00:00 89.721 kg HEIGHT 2020-10-23 14:43:00 167.6 cm WEIGHT 2020-10-23 14:43:00 89.359 kg WEIGHT 2020-10-24 05:00:00 89.721 kg HEIGHT 2020-10-23 14:43:00 167.6 cm WEIGHT 2020-10-23 14:43:00 89.359 kg HEIGHT 2020-09-27 10:11:00 152.4 cm WEIGHT 2020-09-27 10:11:00 90.266 kg HEIGHT 2020-09-27 10:11:00 152.4 cm WEIGHT 2020-09-27 10:11:00 90.266 kg HEIGHT 2020-08-06 13:32:00 167.6 cm WEIGHT 2020-08-06 13:32:00 90.266 kg HEIGHT 2020-08-06 13:32:00 167.6 cm WEIGHT 2020-08-06 13:32:00 90.266 kg Procedures This patient has no known procedures. Plan of Care Planned Activity Planned Date Details Comments Source Future Scheduled 2021-07-30 Screening for [facility] of Test 13:08:55 malignant neoplasm of Medici ne colon (procedure) [code = 780978166] Future Scheduled 2021-07-30 Screening for [facility] of Test 13:08:55 malignant neoplasm of Medici ne breast (procedure) [code = 988698544] Future Scheduled 2021-07-30 COVID-19 Vaccine (1) [facility] 13:08:55 [code = COVID-19 Medicine Vaccine (1)] Future Scheduled 2021-07-30 TETANUS SHOT (ADULT) [facility] 13:08:55 [code = TETANUS SHOT Medicin e (ADULT)] Future Scheduled 2021-07-30 Hepatitis C screening [employer] of Test 13:08:55 (procedure) [code = Medicine 438721617] Future Scheduled 2021-07-30 MEDICARE AWV (Initial) B [facility] of Test 13:08:55 [code = MEDICARE AWV Medicin e (Initial)] Future Scheduled 2021-07-30 FALL SCREEN [code = [employer] of Test 13:08:55 FALL SCREEN] Medicine Future Scheduled 2021-07-30 Screening for [facility] of Test 13:08:55 osteoporosis Medicine (procedure) [code = 650643411] Future Scheduled 2021-07-30 ZOSTER VACCINE (2 of [facility] of Test 13:08:55 2) [code = ZOSTER Medicine VACCINE (2 of 2)] Future Scheduled 2021-07-30 FLU VACCINE > 6 MONTHS B [facility] of Test 13:08:55 [code = FLU VACCINE > Medici ne 6 MONTHS] Future Scheduled COLON CANCER [facility] Franny ege of Test SCREENING: COLONOSCOPY Medic ine [code = COLON CANCER SCREENING: COLONOSCOPY] Future Scheduled COVID-19 Vaccine [facility] of Test Evaluation [code = Medicine COVID-19 Vaccine Evaluation] Future Scheduled MAMMOGRAM ANNUAL [code B [facility] of Test = MAMMOGRAM ANNUAL] Medicine Future Scheduled TETANUS SHOT (ADULT) [facility] of Test [code = TETANUS SHOT Medicin e (ADULT)] Future Scheduled HEPATITIS C SCREENING [facility] of Test [code = HEPATITIS C Medicine SCREENING] Future Scheduled MEDICARE AWV (Initial) B [facility] of Test [code = MEDICARE AWV Medicin e (Initial)] Future Scheduled FALL SCREEN [code = [facility] [employer] of Test FALL SCREEN] Medicine Future Scheduled OSTEOPOROSIS SCREENING B [facility] of Test [code = OSTEOPOROSIS Medicin e SCREENING] Future Scheduled ZOSTER VACCINE (2 of [facility] of Test 2) [code = ZOSTER Medicine VACCINE (2 of 2)] Encounters Start End Encounter Admission Attending Care Care Encounter Source Date/Time Date/Time Type Type Clinicians Facility Department ID 2021-07-25 [facility] [id number] [facility] 17:58:27 ADITI 2021-07-25 [facility] [id number] [facility] 07:51:27 BOBBYUN 2020-12-09 [id number] [facility] 20:16:00 DILIP Med 2021-08-06 2021-08-06 Outpatient SLE SLE [id number] [facility] 00:00:00 00:00:00 2021-07-30 2021-07-30 Office JOE MATIAS [id number] [facility] 12:13:14 13:48:55 Visit RAISSA AMBULATOR [id number] College Y [id number] Medi rosi 300 e 2021-07-14 2021-07-14 Outpatient EL SLE SLE [id number] [facility] 00:00:00 00:00:00 2021-04-16 2021-04-16 Outpatient [facility] SLE [id number] [facility] 00:00:00 00:00:00 2021-03-17 2021-03-17 Emergency ER [facility] Emergency [id number] [facility] 15:10:00 15:10:00 2021-03-02 2021-03-02 Emergency ER [facility] Emergency [id number] [facility] 10:16:00 10:16:00 2021-02-28 2021-02-28 Emergency ER [facility] Emergency [id number] [facility] 12:34:00 12:34:00 2021-02-25 2021-02-25 Outpatient EL SLE SLE [id number] [facility] 00:00:00 00:00:00 2021-02-06 2021-02-06 Outpatient JHON JAMES, SLE SLE [id number] [facility] 00:00:00 00:00:00 PRASUN 2021-02-04 2021-02-04 Outpatient EL SLE SLE [id number] [facility] 00:00:00 00:00:00 2021-02-04 2021-02-04 Outpatient EL [facility]H SLE [id number] [facility] 00:00:00 00:00:00 2021-01-29 2021-01-29 Outpatient JHON JAMES, SLE SLE [id number] [facility] 00:00:00 00:00:00 PRASUN 2021-01-22 2021-01-22 Outpatient EL HARI, SLE SLE [id number] [facility] 00:00:00 00:00:00 PRASUN 2021-01-15 2021-01-15 Outpatient EL SLEH [facility]H [id number] [facility] 00:00:00 00:00:00 2020-12-18 2020-12-18 Office JOE Matias [id number] [place] [address] 07:46:17 07:56:17 Visit Raissa AMBULATOR [id number] College Y [id number] of [id number] [facility] 300 e 2020-12-05 2020-12-05 Outpatient SLEH SLE [id number] [facility] 00:00:00 00:00:00 2020-11-26 2020-11-26 Emergency ER SLE Emergency [id number] [facility] 08:57:00 08:57:00 2020-10-23 2020-10-23 Emergency ER SLE Emergency [id number] [facility] 14:38:00 14:38:00 2020-09-27 2020-09-27 Emergency ER SLE Emergency [id number] [facility] 10:04:00 10:04:00 2020-08-06 2020-08-06 Outpatient EL SLE SLEH [id number] [facility] 00:00:00 00:00:00 2020-07-30 2020-07-30 Outpatient EL SLEH SLEH [id number] [facility] 00:00:00 00:00:00 2020-07-28 2020-07-28 Outpatient EL SLEH SLEH [id number] [facility] 00:00:00 00:00:00 2020-02-14 2020-02-14 Outpatient SLEH SLEH [id number] [facility] 00:00:00 00:00:00 [id number] Results Test Description Test Time Test Comments Results Result [facility] e Comments RAD, CHEST, 1 2021-03-17 DR VIEW, NON DEPT 21:17:00 JALALReferring: Dr. Reyes Maria Teresa duarte [facility] - exam:[facility] : 1950 Sex: F *FINAL REPORT INDICATION: WHEEZING COMPARISON: 12/10/2020 TECHNIQUE: Single frontal view of the chest. IMPRESSION: Lungs and pleura: Hazy bilateral interstitial opacities similar to prior compatible with interstitial lung disease. No superimposed consolidation. Trace bilateral pleural effusions.Heart and mediastinum: Normal heart size. Unremarkable mediastinal contours.Osseous structures: No acute abnormality.Other: None. Signed: [place] Galicia MDReport Verified Date/Time: 03/17/2021 21:17:55 SENSITIVITY TROPONIN I 2021-03-17 20:30:00 Test Item Value Reference Range Interpretation Comme nts HIGH SENSITIVITY TROPONIN I 10 pg/ml See_Comment [Automated message] The system (test code = 5859526) which generated this result transmitted ref erence range: <=17. The refer ence range was not used to interpr et this result as normal/abnormal . Economic Manager ID - BSThe DISTRICT REPRESENTATIVE STAT High Sensitivity Troponin-I results should be used in conjunctionwith other diagnostic information such as ECG, clinical observations and information, and patient symptoms to aid in the diagnosis of GA.[id number] 20:26:00 Test Item Value Reference Range Interpretation Comments MAGNESIUM (BEAKER) (test code = 1.9 mg/dL 1.6-2.6 627) Economic Manager ID - BSBASIC METABOLIC [id number] 20:26:00 Test Item Value Reference Range Interpretation Comments SODIUM (BEAKER) 138 meq/L 136-145 (test code = 381) POTASSIUM (BEAKER) 4.2 meq/L 3.5-5.1 (test code = 379) CHLORIDE (BEAKER) 99 meq/L 98-107 (test code = 382) CO2 (BEAKER) (test 30 meq/L 22-29 H code = 355) BLOOD UREA NITROGEN 16 mg/dL 7-21 (BEAKER) (test code = 354) CREATININE (BEAKER) 1.07 mg/dL 0.57-1.25 (test code = 358) GLUCOSE RANDOM 112 mg/dL 70-105 H (BEAKER) (test code = 652) CALCIUM (BEAKER) 8.8 mg/dL 8.4-10.2 (test code = 697) EGFR (BEAKER) (test 51 mL/min/1.73 ESTIMA RABIA GFR IS code = 1092) sq m NOT ACCURATE CREATININE CLEARANCE IN PREDICTING GLOMERULAR FILTRATION RATE . ESTIMATED GFR I S NOT APPLICABLE FOR DIALYSIS PATIEN TS. Economic Manager ID - BSSpecimen slightly ictericCBC W/PLT COUNT & AUTO DIFFERENTIAL 2021-03-17 20:06:00 Test Item Value Reference Range Interpretation Comments WHITE BLOOD CELL COUNT (BEAKER) 5.0 K/ L 3.5-10.5 (test code = 775) RED BLOOD CELL COUNT (BEAKER) 2.83 M/ L 3.93-5.22 L (test code = 761) HEMOGLOBIN (BEAKER) (test code = 9.1 GM/DL 11.2-15.7 L 410) HEMATOCRIT (BEAKER) (test code = 29.6 % 34.1-44.9 L 411) MEAN CORPUSCULAR VOLUME (BEAKER) 104.6 fL 79.4-94.8 H (test code = 753) MEAN CORPUSCULAR HEMOGLOBIN 32.2 pg 25.6-32.2 (BEAKER) (test code = 751) MEAN CORPUSCULAR HEMOGLOBIN CONC 30.7 GM/DL 32.2-35.5 L (BEAKER) (test code = 752) RED CELL DISTRIBUTION WIDTH 16.8 % 11.7-14.4 H (BEAKER) (test code = 412) PLATELET COUNT (BEAKER) (test code 84 K/CU MM 150-450 L = 756) MEAN PLATELET VOLUME (BEAKER) 11.3 fL 9.4-12.3 (test code = 754) NUCLEATED RED BLOOD CELLS (BEAKER) 0 /100 WBC 0-0 (test code = 413) NEUTROPHILS RELATIVE PERCENT 66 % (BEAKER) (test code = 429) LYMPHOCYTES RELATIVE PERCENT 20 % (BEAKER) (test code = 430) MONOCYTES RELATIVE PERCENT 10 % (BEAKER) (test code = 431) EOSINOPHILS RELATIVE PERCENT 2 % (BEAKER) (test code = 432) BASOPHILS RELATIVE PERCENT 1 % (BEAKER) (test code = 437) NEUTROPHILS ABSOLUTE COUNT 3.28 K/ L 1.56-6.13 (BEAKER) (test code = 670) LYMPHOCYTES ABSOLUTE COUNT 0.99 K/ L 1.18-3.74 L (BEAKER) (test code = 414) MONOCYTES ABSOLUTE COUNT (BEAKER) 0.52 K/ L 0.24-0.36 H (test code = 415) EOSINOPHILS ABSOLUTE COUNT 0.12 K/ L 0.04-0.36 (BEAKER) (test code = 416) BASOPHILS ABSOLUTE COUNT (BEAKER) 0.05 K/ L 0.01-0.08 (test code = 417) IMMATURE GRANULOCYTES-RELATIVE 1 % 0-1 PERCENT (BEAKER) (test code = 2801) COMPREHENSIVE METABOLIC [id number] 06:35:00 Test Item Value Reference Range Interpretation Comments TOTAL PROTEIN 5.7 gm/dL 6.0-8.3 L (BEAKER) (test code = 770) ALBUMIN (BEAKER) 2.8 g/dL 3.5-5.0 L (test code = 1145) ALKALINE PHOSPHATASE 64 U/L 40-150 (BEAKER) (test code = 346) BILIRUBIN TOTAL 1.6 mg/dL 0.2-1.2 H (BEAKER) (test code = 377) SODIUM (BEAKER) (test 140 meq/L 136-145 code = 381) POTASSIUM (BEAKER) 4.0 meq/L 3.5-5.1 (test code = 379) CHLORIDE (BEAKER) 109 meq/L 98-107 H (test code = 382) CO2 (BEAKER) (test 27 meq/L 22-29 code = 355) BLOOD UREA NITROGEN 18 mg/dL 7-21 (BEAKER) (test code = 354) CREATININE (BEAKER) 0.98 mg/dL 0.57-1.25 (test code = 358) GLUCOSE RANDOM 101 mg/dL 70-105 (BEAKER) (test code = 652) CALCIUM (BEAKER) 8.5 mg/dL 8.4-10.2 (test code = 697) AST (SGOT) (BEAKER) 18 U/L 5-34 (test code = 353) ALT (SGPT) (BEAKER) 9 U/L 6-55 (test code = 347) EGFR (BEAKER) (test 56 mL/min/1.73 ESTIMA RABIA GFR IS code = 1092) sq m NOT ACCURATE CREATININE CLEARANCE IN PREDICTING GLOMERULAR FILTRATION RATE . ESTIMATED GFR I S NOT APPLICABLE FOR DIALYSIS PATIEN TS. Economic Manager ID - ALIZA [id number] 06:35:00 Test Item Value Reference Range Interpretation Comments MAGNESIUM (BEAKER) (test code = 2.0 mg/dL 1.6-2.6 627) Economic Manager ID - ALIZA MPROTHROMBIN [id number] 06:12:00 Test Item Value Reference Range Interpretation Comments PROTIME (BEAKER) 18.1 seconds 11.9-14.2 H (test code = 759) INR (BEAKER) (test 1.56 See_Comment [Automat ed message] code = 370) The system [employer] generated this result transmitted ref erence range: <=5.90. The reference range was not used to int erpret this result as normal/abnormal . RECOMMENDED COUMADIN/WARFARIN INR THERAPY RANGESSTANDARD DOSE: 2.0 - 3.0 Includes: PROPHYLAXIS forvenous thrombosis, systemic embolization; TREATMENT for venous thrombosis and/or pulmonary embolus.HIGH RISK: Target INR is 2.5-3.5 for patients with mechanical heart valves.CBC W/PLT COUNT & AUTO DIFFERENTIAL 2021-03-10 06:06:00 Test Item Value Reference Range Interpretation Comments WHITE BLOOD CELL COUNT (BEAKER) 2.9 K/ L 3.5-10.5 L (test code = 775) RED BLOOD CELL COUNT (BEAKER) 2.33 M/ L 3.93-5.22 L (test code = 761) HEMOGLOBIN (BEAKER) (test code = 7.5 GM/DL 11.2-15.7 L 410) HEMATOCRIT (BEAKER) (test code = 25.2 % 34.1-44.9 L 411) MEAN CORPUSCULAR VOLUME (BEAKER) 108.2 fL 79.4-94.8 H (test code = 753) MEAN CORPUSCULAR HEMOGLOBIN 32.2 pg 25.6-32.2 (BEAKER) (test code = 751) MEAN CORPUSCULAR HEMOGLOBIN CONC 29.8 GM/DL 32.2-35.5 L (BEAKER) (test code = 752) RED CELL DISTRIBUTION WIDTH 16.2 % 11.7-14.4 H (BEAKER) (test code = 412) PLATELET COUNT (BEAKER) (test code 52 K/CU MM 150-450 L = 756) MEAN PLATELET VOLUME (BEAKER) 10.2 fL 9.4-12.3 (test code = 754) NUCLEATED RED BLOOD CELLS (BEAKER) 0 /100 WBC 0-0 (test code = 413) NEUTROPHILS RELATIVE PERCENT 55 % (BEAKER) (test code = 429) LYMPHOCYTES RELATIVE PERCENT 24 % (BEAKER) (test code = 430) MONOCYTES RELATIVE PERCENT 14 % (BEAKER) (test code = 431) EOSINOPHILS RELATIVE PERCENT 6 % (BEAKER) (test code = 432) BASOPHILS RELATIVE PERCENT 1 % (BEAKER) (test code = 437) NEUTROPHILS ABSOLUTE COUNT 1.57 K/ L 1.56-6.13 (BEAKER) (test code = 670) LYMPHOCYTES ABSOLUTE COUNT 0.69 K/ L 1.18-3.74 L (BEAKER) (test code = 414) MONOCYTES ABSOLUTE COUNT (BEAKER) 0.39 K/ L 0.24-0.36 H (test code = 415) EOSINOPHILS ABSOLUTE COUNT 0.18 K/ L 0.04-0.36 (BEAKER) (test code = 416) BASOPHILS ABSOLUTE COUNT (BEAKER) 0.02 K/ L 0.01-0.08 (test code = 417) IMMATURE GRANULOCYTES-RELATIVE 1 % 0-1 PERCENT (BEAKER) (test code = 2801) PROTHROMBIN [id number] 04:57:00 Test Item Value Reference Range Interpretation Comments PROTIME (BEAKER) 19.0 seconds 11.9-14.2 H (test code = 759) INR (BEAKER) (test 1.64 See_Comment [Automat ed message] code = 370) The system [employer] generated this result transmitted ref erence range: <=5.90. The reference range was not used to int erpret this result as normal/abnormal . RECOMMENDED COUMADIN/WARFARIN INR THERAPY RANGESSTANDARD DOSE: 2.0 - 3.0 Includes: PROPHYLAXIS forvenous thrombosis, systemic embolization; TREATMENT for venous thrombosis and/or pulmonary embolus.HIGH RISK: Target INR is 2.5-3.5 for patients with mechanical heart valves.COMPREHENSIVE METABOLIC [id number] 04:51:00 Test Item Value Reference Range Interpretation Comments TOTAL PROTEIN 6.0 gm/dL 6.0-8.3 (BEAKER) (test code = 770) ALBUMIN (BEAKER) 3.1 g/dL 3.5-5.0 L (test code = 1145) ALKALINE PHOSPHATASE 67 U/L 40-150 (BEAKER) (test code = 346) BILIRUBIN TOTAL 1.3 mg/dL 0.2-1.2 H (BEAKER) (test code = 377) SODIUM (BEAKER) (test 143 meq/L 136-145 code = 381) POTASSIUM (BEAKER) 4.4 meq/L 3.5-5.1 (test code = 379) CHLORIDE (BEAKER) 109 meq/L 98-107 H (test code = 382) CO2 (BEAKER) (test 29 meq/L 22-29 code = 355) BLOOD UREA NITROGEN 16 mg/dL 7-21 (BEAKER) (test code = 354) CREATININE (BEAKER) 1.12 mg/dL 0.57-1.25 (test code = 358) GLUCOSE RANDOM 111 mg/dL 70-105 H (BEAKER) (test code = 652) CALCIUM (BEAKER) 9.0 mg/dL 8.4-10.2 (test code = 697) AST (SGOT) (BEAKER) 19 U/L 5-34 (test code = 353) ALT (SGPT) (BEAKER) 8 U/L 6-55 (test code = 347) EGFR (BEAKER) (test 48 mL/min/1.73 ESTIMA RABIA GFR IS code = 1092) sq m NOT ACCURATE CREATININE CLEARANCE IN PREDICTING GLOMERULAR FILTRATION RATE . ESTIMATED GFR I S NOT APPLICABLE FOR DIALYSIS PATIEN TS. Economic Manager ID - ALIZA [id number] 04:51:00 Test Item Value Reference Range Interpretation Comments MAGNESIUM (BEAKER) (test code = 2.2 mg/dL 1.6-2.6 627) Economic Manager ID - ALIZA [facility] W/PLT COUNT & AUTO [id number] 04:32:00 Test Item Value Reference Range Interpretation Comments WHITE BLOOD CELL COUNT (BEAKER) 2.9 K/ L 3.5-10.5 L (test code = 775) RED BLOOD CELL COUNT (BEAKER) 2.25 M/ L 3.93-5.22 L (test code = 761) HEMOGLOBIN (BEAKER) (test code = 7.3 GM/DL 11.2-15.7 L 410) HEMATOCRIT (BEAKER) (test code = 24.0 % 34.1-44.9 L 411) MEAN CORPUSCULAR VOLUME (BEAKER) 106.7 fL 79.4-94.8 H (test code = 753) MEAN CORPUSCULAR HEMOGLOBIN 32.4 pg 25.6-32.2 H (BEAKER) (test code = 751) MEAN CORPUSCULAR HEMOGLOBIN CONC 30.4 GM/DL 32.2-35.5 L (BEAKER) (test code = 752) RED CELL DISTRIBUTION WIDTH 16.2 % 11.7-14.4 H (BEAKER) (test code = 412) PLATELET COUNT (BEAKER) (test code 41 K/CU MM 150-450 L = 756) MEAN PLATELET VOLUME (BEAKER) 11.4 fL 9.4-12.3 (test code = 754) NUCLEATED RED BLOOD CELLS (BEAKER) 0 /100 WBC 0-0 (test code = 413) NEUTROPHILS RELATIVE PERCENT 44 % (BEAKER) (test code = 429) LYMPHOCYTES RELATIVE PERCENT 34 % (BEAKER) (test code = 430) MONOCYTES RELATIVE PERCENT 15 % (BEAKER) (test code = 431) EOSINOPHILS RELATIVE PERCENT 7 % (BEAKER) (test code = 432) BASOPHILS RELATIVE PERCENT 0 % (BEAKER) (test code = 437) NEUTROPHILS ABSOLUTE COUNT 1.26 K/ L 1.56-6.13 L (BEAKER) (test code = 670) LYMPHOCYTES ABSOLUTE COUNT 0.99 K/ L 1.18-3.74 L (BEAKER) (test code = 414) MONOCYTES ABSOLUTE COUNT (BEAKER) 0.42 K/ L 0.24-0.36 H (test code = 415) EOSINOPHILS ABSOLUTE COUNT 0.21 K/ L 0.04-0.36 (BEAKER) (test code = 416) BASOPHILS ABSOLUTE COUNT (BEAKER) 0.01 K/ L 0.01-0.08 (test code = 417) IMMATURE GRANULOCYTES-RELATIVE 0 % 0-1 PERCENT (BEAKER) (test code = 2801) COMPREHENSIVE METABOLIC [id number] 04:29:00 Test Item Value Reference Range Interpretation Comments TOTAL PROTEIN 5.7 gm/dL 6.0-8.3 L (BEAKER) (test code = 770) ALBUMIN (BEAKER) 2.7 g/dL 3.5-5.0 L (test code = 1145) ALKALINE PHOSPHATASE 76 U/L 40-150 (BEAKER) (test code = 346) BILIRUBIN TOTAL 1.3 mg/dL 0.2-1.2 H (BEAKER) (test code = 377) SODIUM (BEAKER) (test 140 meq/L 136-145 code = 381) POTASSIUM (BEAKER) 3.3 meq/L 3.5-5.1 L (test code = 379) CHLORIDE (BEAKER) 104 meq/L 98-107 (test code = 382) CO2 (BEAKER) (test 32 meq/L 22-29 H code = 355) BLOOD UREA NITROGEN 15 mg/dL 7-21 (BEAKER) (test code = 354) CREATININE (BEAKER) 1.09 mg/dL 0.57-1.25 (test code = 358) GLUCOSE RANDOM 116 mg/dL 70-105 H (BEAKER) (test code = 652) CALCIUM (BEAKER) 8.6 mg/dL 8.4-10.2 (test code = 697) AST (SGOT) (BEAKER) 20 U/L 5-34 (test code = 353) ALT (SGPT) (BEAKER) 11 U/L 6-55 (test code = 347) EGFR (BEAKER) (test 50 mL/min/1.73 ESTIMA RABIA GFR IS code = 1092) sq m NOT ACCURATE CREATININE CLEARANCE IN PREDICTING GLOMERULAR FILTRATION RATE . ESTIMATED GFR I S NOT APPLICABLE FOR DIALYSIS PATIEN TS. Economic Manager ID - [id number] 04:29:00 Test Item Value Reference Range Interpretation Comments MAGNESIUM (BEAKER) (test code = 2.1 mg/dL 1.6-2.6 627) Economic Manager ID - ADMINCBC W/PLT COUNT & AUTO [id number] 04:04:00 Test Item Value Reference Range Interpretation Comments WHITE BLOOD CELL COUNT (BEAKER) 2.6 K/ L 3.5-10.5 L (test code = 775) RED BLOOD CELL COUNT (BEAKER) 2.25 M/ L 3.93-5.22 L (test code = 761) HEMOGLOBIN (BEAKER) (test code = 7.3 GM/DL 11.2-15.7 L 410) HEMATOCRIT (BEAKER) (test code = 23.7 % 34.1-44.9 L 411) MEAN CORPUSCULAR VOLUME (BEAKER) 105.3 fL 79.4-94.8 H (test code = 753) MEAN CORPUSCULAR HEMOGLOBIN 32.4 pg 25.6-32.2 H (BEAKER) (test code = 751) MEAN CORPUSCULAR HEMOGLOBIN CONC 30.8 GM/DL 32.2-35.5 L (BEAKER) (test code = 752) RED CELL DISTRIBUTION WIDTH 16.0 % 11.7-14.4 H (BEAKER) (test code = 412) PLATELET COUNT (BEAKER) (test code 39 K/CU MM 150-450 L = 756) MEAN PLATELET VOLUME (BEAKER) 10.5 fL 9.4-12.3 (test code = 754) NUCLEATED RED BLOOD CELLS (BEAKER) 0 /100 WBC 0-0 (test code = 413) NEUTROPHILS RELATIVE PERCENT 53 % (BEAKER) (test code = 429) LYMPHOCYTES RELATIVE PERCENT 24 % (BEAKER) (test code = 430) MONOCYTES RELATIVE PERCENT 13 % (BEAKER) (test code = 431) EOSINOPHILS RELATIVE PERCENT 9 % (BEAKER) (test code = 432) BASOPHILS RELATIVE PERCENT 0 % (BEAKER) (test code = 437) NEUTROPHILS ABSOLUTE COUNT 1.37 K/ L 1.56-6.13 L (BEAKER) (test code = 670) LYMPHOCYTES ABSOLUTE COUNT 0.63 K/ L 1.18-3.74 L (BEAKER) (test code = 414) MONOCYTES ABSOLUTE COUNT (BEAKER) 0.34 K/ L 0.24-0.36 (test code = 415) EOSINOPHILS ABSOLUTE COUNT 0.23 K/ L 0.04-0.36 (BEAKER) (test code = 416) BASOPHILS ABSOLUTE COUNT (BEAKER) 0.01 K/ L 0.01-0.08 (test code = 417) IMMATURE GRANULOCYTES-RELATIVE 0 % 0-1 PERCENT (BEAKER) (test code = 2801) COMPREHENSIVE METABOLIC [id number] 06:26:00 Test Item Value Reference Range Interpretation Comments TOTAL PROTEIN 5.6 gm/dL 6.0-8.3 L (BEAKER) (test code = 770) ALBUMIN (BEAKER) 2.4 g/dL 3.5-5.0 L (test code = 1145) ALKALINE PHOSPHATASE 69 U/L 40-150 (BEAKER) (test code = 346) BILIRUBIN TOTAL 1.4 mg/dL 0.2-1.2 H (BEAKER) (test code = 377) SODIUM (BEAKER) (test 138 meq/L 136-145 code = 381) POTASSIUM (BEAKER) 3.5 meq/L 3.5-5.1 (test code = 379) CHLORIDE (BEAKER) 101 meq/L 98-107 (test code = 382) CO2 (BEAKER) (test 35 meq/L 22-29 H code = 355) BLOOD UREA NITROGEN 18 mg/dL 7-21 (BEAKER) (test code = 354) CREATININE (BEAKER) 1.01 mg/dL 0.57-1.25 (test code = 358) GLUCOSE RANDOM 108 mg/dL 70-105 H (BEAKER) (test code = 652) CALCIUM (BEAKER) 8.3 mg/dL 8.4-10.2 L (test code = 697) AST (SGOT) (BEAKER) 22 U/L 5-34 (test code = 353) ALT (SGPT) (BEAKER) 10 U/L 6-55 (test code = 347) EGFR (BEAKER) (test 54 mL/min/1.73 ESTIMA RABIA GFR IS code = 1092) sq m NOT ACCURATE CREATININE CLEARANCE IN PREDICTING GLOMERULAR FILTRATION RATE . ESTIMATED GFR I S NOT APPLICABLE FOR DIALYSIS PATIEN TS. Economic Manager ID - ALIZA [id number] 06:26:00 Test Item Value Reference Range Interpretation Comments MAGNESIUM (BEAKER) (test code = 2.1 mg/dL 1.6-2.6 627) Economic Manager ID - ALIZA MCBC W/PLT COUNT & AUTO [id number] 05:06:00 Test Item Value Reference Range Interpretation Comments WHITE BLOOD CELL COUNT (BEAKER) 2.9 K/ L 3.5-10.5 L (test code = 775) RED BLOOD CELL COUNT (BEAKER) 2.27 M/ L 3.93-5.22 L (test code = 761) HEMOGLOBIN (BEAKER) (test code = 7.4 GM/DL 11.2-15.7 L 410) HEMATOCRIT (BEAKER) (test code = 24.4 % 34.1-44.9 L 411) MEAN CORPUSCULAR VOLUME (BEAKER) 107.5 fL 79.4-94.8 H (test code = 753) MEAN CORPUSCULAR HEMOGLOBIN 32.6 pg 25.6-32.2 H (BEAKER) (test code = 751) MEAN CORPUSCULAR HEMOGLOBIN CONC 30.3 GM/DL 32.2-35.5 L (BEAKER) (test code = 752) RED CELL DISTRIBUTION WIDTH 16.3 % 11.7-14.4 H (BEAKER) (test code = 412) PLATELET COUNT (BEAKER) (test code 40 K/CU MM 150-450 L = 756) MEAN PLATELET VOLUME (BEAKER) 11.1 fL 9.4-12.3 (test code = 754) NUCLEATED RED BLOOD CELLS (BEAKER) 0 /100 WBC 0-0 (test code = 413) NEUTROPHILS RELATIVE PERCENT 48 % (BEAKER) (test code = 429) LYMPHOCYTES RELATIVE PERCENT 27 % (BEAKER) (test code = 430) MONOCYTES RELATIVE PERCENT 15 % (BEAKER) (test code = 431) EOSINOPHILS RELATIVE PERCENT 10 % (BEAKER) (test code = 432) BASOPHILS RELATIVE PERCENT 1 % (BEAKER) (test code = 437) NEUTROPHILS ABSOLUTE COUNT 1.37 K/ L 1.56-6.13 L (BEAKER) (test code = 670) LYMPHOCYTES ABSOLUTE COUNT 0.77 K/ L 1.18-3.74 L (BEAKER) (test code = 414) MONOCYTES ABSOLUTE COUNT (BEAKER) 0.44 K/ L 0.24-0.36 H (test code = 415) EOSINOPHILS ABSOLUTE COUNT 0.28 K/ L 0.04-0.36 (BEAKER) (test code = 416) BASOPHILS ABSOLUTE COUNT (BEAKER) 0.02 K/ L 0.01-0.08 (test code = 417) IMMATURE GRANULOCYTES-RELATIVE 0 % 0-1 PERCENT (BEAKER) (test code = 2801) [id number] 07:39:00 Test Item Value Reference Range Interpretation Comments MAGNESIUM (BEAKER) 2.0 mg/dL 1.6-2.6 Specimen moderately (test code = 627) hemolyzed Economic Manager ID - EDASICOMPREHENSIVE METABOLIC [id number] 07:39:00 Test Item Value Reference Range Interpretation Comments TOTAL PROTEIN 5.5 gm/dL 6.0-8.3 L Specimen moder ately (BEAKER) (test code = hemoly zed 770) ALBUMIN (BEAKER) 2.6 g/dL 3.5-5.0 L Specimen mo derately (test code = 1145) hemolyzed ALKALINE PHOSPHATASE 61 U/L 40-150 (BEAKER) (test code = 346) BILIRUBIN TOTAL 1.7 mg/dL 0.2-1.2 H Specimen mod erately (BEAKER) (test code = hemoly zed 377) SODIUM (BEAKER) (test 140 meq/L 136-145 code = 381) POTASSIUM (BEAKER) 4.0 meq/L 3.5-5.1 Specimen moderately (test code = 379) hemolyzed CHLORIDE (BEAKER) 101 meq/L 98-107 (test code = 382) CO2 (BEAKER) (test 35 meq/L 22-29 H code = 355) BLOOD UREA NITROGEN 17 mg/dL 7-21 (BEAKER) (test code = 354) CREATININE (BEAKER) 0.95 mg/dL 0.57-1.25 Specimen moderately (test code = 358) hemolyzed GLUCOSE RANDOM 93 mg/dL 70-105 (BEAKER) (test code = 652) CALCIUM (BEAKER) 8.2 mg/dL 8.4-10.2 L (test code = 697) AST (SGOT) (BEAKER) 30 U/L 5-34 Specimen moderately (test code = 353) hemolyzed ALT (SGPT) (BEAKER) 10 U/L 6-55 Specimen moderately (test code = 347) hemolyzed EGFR (BEAKER) (test 58 mL/min/1.73 ESTIMA RABIA GFR IS code = 1092) sq m NOT ACCURATE CREATININE CLEARANCE IN PREDICTING GLOMERULAR FILTRATION RATE . ESTIMATED GFR I S NOT APPLICABLE FOR DIALYSIS PATIEN TS. Economic Manager ID - EDASICBC W/PLT COUNT & AUTO [id number] 07:16:00 Test Item Value Reference Range Interpretation Comments WHITE BLOOD CELL COUNT (BEAKER) 2.6 K/ L 3.5-10.5 L (test code = 775) RED BLOOD CELL COUNT (BEAKER) 2.20 M/ L 3.93-5.22 L (test code = 761) HEMOGLOBIN (BEAKER) (test code = 7.0 GM/DL 11.2-15.7 L 410) HEMATOCRIT (BEAKER) (test code = 23.2 % 34.1-44.9 L 411) MEAN CORPUSCULAR VOLUME (BEAKER) 105.5 fL 79.4-94.8 H (test code = 753) MEAN CORPUSCULAR HEMOGLOBIN 31.8 pg 25.6-32.2 (BEAKER) (test code = 751) MEAN CORPUSCULAR HEMOGLOBIN CONC 30.2 GM/DL 32.2-35.5 L (BEAKER) (test code = 752) RED CELL DISTRIBUTION WIDTH 16.2 % 11.7-14.4 H (BEAKER) (test code = 412) PLATELET COUNT (BEAKER) (test code 39 K/CU MM 150-450 L = 756) MEAN PLATELET VOLUME (BEAKER) 9.8 fL 9.4-12.3 (test code = 754) NUCLEATED RED BLOOD CELLS (BEAKER) 0 /100 WBC 0-0 (test code = 413) NEUTROPHILS RELATIVE PERCENT 45 % (BEAKER) (test code = 429) LYMPHOCYTES RELATIVE PERCENT 33 % (BEAKER) (test code = 430) MONOCYTES RELATIVE PERCENT 13 % (BEAKER) (test code = 431) EOSINOPHILS RELATIVE PERCENT 9 % (BEAKER) (test code = 432) BASOPHILS RELATIVE PERCENT 0 % (BEAKER) (test code = 437) NEUTROPHILS ABSOLUTE COUNT 1.16 K/ L 1.56-6.13 L (BEAKER) (test code = 670) LYMPHOCYTES ABSOLUTE COUNT 0.87 K/ L 1.18-3.74 L (BEAKER) (test code = 414) MONOCYTES ABSOLUTE COUNT (BEAKER) 0.33 K/ L 0.24-0.36 (test code = 415) EOSINOPHILS ABSOLUTE COUNT 0.23 K/ L 0.04-0.36 (BEAKER) (test code = 416) BASOPHILS ABSOLUTE COUNT (BEAKER) 0.01 K/ L 0.01-0.08 (test code = 417) IMMATURE GRANULOCYTES-RELATIVE 0 % 0-1 PERCENT (BEAKER) (test code = 2801) PROTHROMBIN [id number] 07:08:00 Test Item Value Reference Range Interpretation Comments PROTIME (BEAKER) 20.0 seconds 11.9-14.2 H (test code = 759) INR (BEAKER) (test 1.75 See_Comment [Automat ed message] code = 370) The system [employer] generated this result transmitted ref erence range: <=5.90. The reference range was not used to int erpret this result as normal/abnormal . RECOMMENDED COUMADIN/WARFARIN INR THERAPY RANGESSTANDARD DOSE: 2.0 - 3.0 Includes: PROPHYLAXIS forvenous thrombosis, systemic embolization; TREATMENT for venous thrombosis and/or pulmonary embolus.HIGH RISK: Target INR is 2.5-3.5 for patients with mechanical heart valves.BODY FLUID CULTURE + GRAM [id number] 14:00:00 Test Item Value Reference Range Interpretation Comments CULTURE (BEAKER) (test code No growth = 1095) GRAM STAIN RESULT (BEAKER) 2+ WBCs (test code = 1123) GRAM STAIN RESULT (BEAKER) No organisms seen (test code = 098277) URINALYSIS W/ [id number] 09:34:00 Test Item Value Reference Range Interpretation Comments COLOR (BEAKER) (test code = 470) Light Yellow CLARITY (BEAKER) (test code = Clear 469) SPECIFIC GRAVITY UA (BEAKER) 1.011 1.001-1.035 (test code = 468) PH UA (BEAKER) (test code = 467) 6.0 5.0-8.0 PROTEIN UA (BEAKER) (test code = Negative Negative 464) GLUCOSE UA (BEAKER) (test code = Negative Negative 365) KETONES UA (BEAKER) (test code = Negative Negative 371) BILIRUBIN UA (BEAKER) (test code Negative Negative = 462) BLOOD UA (BEAKER) (test code = Negative Negative 461) NITRITE UA (BEAKER) (test code = Negative Negative 465) LEUKOCYTE ESTERASE UA (BEAKER) Negative Negative (test code = 466) UROBILINOGEN UA (BEAKER) (test 0.2 mg/dL 0.2-1.0 code = 463) RBC UA (BEAKER) (test code = < /HPF 519) WBC UA (BEAKER) (test code = 1 /HPF 520) MUCUS (BEAKER) (test code = Rare 1574) SQUAMOUS EPITHELIAL (BEAKER) < /HPF (test code = 516) SOURCE(BEAKER) (test code = 1956) Economic Manager ID - [auto]Economic Manager ID - techPROTEIN, RANDOM [id number] 09:05:00 Test Item Value Reference Range Interpretation Comments PROTEIN, URINE (BEAKER) (test code = < mg/dL 0-14 1569) Economic Manager ID - AAHAMIDCREATININE, RANDOM [id number] 08:44:00 Test Item Value Reference Range Interpretation Comments CREATININE URINE (BEAKER) (test 40.2 mg/dL code = 375) Reference Range: No NormalsOperator ID - AAHAMIDCOMPREHENSIVE METABOLIC PANEL 2021-03-05 05:59:00 Test Item Value Reference Range Interpretation Comments TOTAL PROTEIN 6.0 gm/dL 6.0-8.3 (BEAKER) (test code = 770) ALBUMIN (BEAKER) 2.3 g/dL 3.5-5.0 L (test code = 1145) ALKALINE PHOSPHATASE 87 U/L 40-150 (BEAKER) (test code = 346) BILIRUBIN TOTAL 1.4 mg/dL 0.2-1.2 H (BEAKER) (test code = 377) SODIUM (BEAKER) (test 137 meq/L 136-145 code = 381) POTASSIUM (BEAKER) 3.6 meq/L 3.5-5.1 (test code = 379) CHLORIDE (BEAKER) 100 meq/L 98-107 (test code = 382) CO2 (BEAKER) (test 34 meq/L 22-29 H code = 355) BLOOD UREA NITROGEN 17 mg/dL 7-21 (BEAKER) (test code = 354) CREATININE (BEAKER) 1.12 mg/dL 0.57-1.25 (test code = 358) GLUCOSE RANDOM 116 mg/dL 70-105 H (BEAKER) (test code = 652) CALCIUM (BEAKER) 8.3 mg/dL 8.4-10.2 L (test code = 697) AST (SGOT) (BEAKER) 20 U/L 5-34 (test code = 353) ALT (SGPT) (BEAKER) 9 U/L 6-55 (test code = 347) EGFR (BEAKER) (test 48 mL/min/1.73 ESTIMA RABIA GFR IS code = 1092) sq m NOT ACCURATE CREATININE CLEARANCE IN PREDICTING GLOMERULAR FILTRATION RATE . ESTIMATED GFR I S NOT APPLICABLE FOR DIALYSIS PATIEN TS. Economic Manager ID - ALIZA [id number] 05:59:00 Test Item Value Reference Range Interpretation Comments MAGNESIUM (BEAKER) (test code = 1.8 mg/dL 1.6-2.6 627) Economic Manager ID - ALIZA [id number] 05:59:00 Test Item Value Reference Range Interpretation Comments PHOSPHORUS (BEAKER) (test code = 2.5 mg/dL 2.3-4.7 604) Economic Manager ID - ALIZA MB-TYPE NATRIURETIC FACTOR (BNP)2021-03-05 04:42:00 Test Item Value Reference Range Interpretation Comments B-TYPE NATRIURETIC PEPTIDE (BEAKER) 114 pg/mL 0-100 H (test code = 700) Economic Manager ID - MURALI LSARS-COV2/RT-PCR ([facility])2021-03-03 19:44:00 Test Item Value Reference Range Interpretation Comments SARS-COV2/RT-PCR (test Negative Not Detected, Negative, code = 3351601) See external report for linked test SARS-COV-2 PERFORMING LAB [facility] (test code = 9533577) Negative result for this test determines that [...] individuals suspected of COVID-19 by their healthcare provider.This test [...] the Cheema SARS-CoV-2 assay.Fact Sheet for Healthcare Providers:https://www.[employer]vanteq.cheema/derrick/ GP_LKNL-QkY-7_RFM_Udcz_Gnkqg_57-523110.pdfFact Sheet for Healthcare Patients:https://www.[employer]vanteq.Artaic lauryn/derrick/GD_NUKC-ZnD-6_Zuelqtq_Ilmn_Tgscv_FR_01-177950C9.pdfPerforming Laboratory:[address] [place] [address] PROTEIN, BODY [id number] 10:21:00 Test Item Value Reference Range Interpretation Comments PROTEIN FLUID (BEAKER) (test code = 0.9 g/dL 579) Absence of reference range indicates that normals have not been defined.Assay performance has not been validated for this type of specimen.Economic Manager ID - [id number] DEHYDROGENASE (LDH), BODY [id number] 09:59:00 Test Item Value Reference Range Interpretation Comments LACTATE DEHYDROGENASE FLUID (BEAKER) 53 U/L (test code = 634) Absence of reference range indicates that normals have not been defined.Assay performance has not been validated for this type of specimen.Economic Manager ID - [id number] 04:33:00 Test Item Value Reference Range Interpretation Comments MAGNESIUM (BEAKER) 1.8 mg/dL 1.6-2.6 Specimen slightly (test code = 627) hemolyzed Economic Manager ID - ALIZA MBASIC METABOLIC [id number] 04:33:00 Test Item Value Reference Range Interpretation Comments SODIUM (BEAKER) 137 meq/L 136-145 (test code = 381) POTASSIUM (BEAKER) 4.0 meq/L 3.5-5.1 Specimen slightly (test code = 379) hemolyzed CHLORIDE (BEAKER) 103 meq/L 98-107 (test code = 382) CO2 (BEAKER) (test 29 meq/L 22-29 code = 355) BLOOD UREA NITROGEN 12 mg/dL 7-21 (BEAKER) (test code = 354) CREATININE (BEAKER) 0.87 mg/dL 0.57-1.25 Specimen slightly (test code = 358) hemolyzed GLUCOSE RANDOM 107 mg/dL 70-105 H (BEAKER) (test code = 652) CALCIUM (BEAKER) 8.0 mg/dL 8.4-10.2 L (test code = 697) EGFR (BEAKER) (test 64 mL/min/1.73 ESTIMA RABIA GFR IS code = 1092) sq m NOT ACCURATE CREATININE CLEARANCE IN PREDICTING GLOMERULAR FILTRATION RATE . ESTIMATED GFR I S NOT APPLICABLE FOR DIALYSIS PATIEN TS. Economic Manager ID - ALIZA MSpecimen slightly ictericHEPATIC FUNCTION [id number] 04:33:00 Test Item Value Reference Range Interpretation Comments TOTAL PROTEIN (BEAKER) 6.4 gm/dL 6.0-8.3 Speci men slightly (test code = 770) hemolyzed ALBUMIN (BEAKER) (test 2.1 g/dL 3.5-5.0 L Speci men slightly code = 1145) hemolyzed BILIRUBIN TOTAL 2.4 mg/dL 0.2-1.2 H Specimen sli ghtly (BEAKER) (test code = hemoly zed 377) BILIRUBIN DIRECT 0.9 mg/dL 0.1-0.5 H Specimen sl ightly (BEAKER) (test code = hemoly zed 706) ALKALINE PHOSPHATASE 91 U/L 40-150 (BEAKER) (test code = 346) AST (SGOT) (BEAKER) 28 U/L 5-34 Specimen slightly (test code = 353) hemolyzed ALT (SGPT) (BEAKER) 9 U/L 6-55 Specimen slightly (test code = 347) hemolyzed Economic Manager ID - ALIZA MSpecimen slightly ictericPROTHROMBIN [id number] 04:26:00 Test Item Value Reference Range Interpretation Comments PROTIME (BEAKER) 17.4 seconds 11.9-14.2 H (test code = 759) INR (BEAKER) (test 1.47 See_Comment [Automat ed message] code = 370) The system [employer] generated this result transmitted ref erence range: [...] mechanical heart valves.CBC W/PLT COUNT & AUTO [id number] 04:13:00 Test Item Value Reference Range Interpretation Comments WHITE BLOOD CELL COUNT (BEAKER) 4.8 K/ L 3.5-10.5 (test code = 775) RED BLOOD CELL COUNT (BEAKER) 2.76 M/ L 3.93-5.22 L (test code = 761) HEMOGLOBIN (BEAKER) (test code = 8.8 GM/DL 11.2-15.7 L 410) HEMATOCRIT (BEAKER) (test code = 27.9 % 34.1-44.9 L 411) MEAN CORPUSCULAR VOLUME (BEAKER) 101.1 fL 79.4-94.8 H (test code = 753) MEAN CORPUSCULAR HEMOGLOBIN 31.9 pg 25.6-32.2 (BEAKER) (test code = 751) MEAN CORPUSCULAR HEMOGLOBIN CONC 31.5 GM/DL 32.2-35.5 L (BEAKER) (test code = 752) RED CELL DISTRIBUTION WIDTH 16.2 % 11.7-14.4 H (BEAKER) (test code = 412) PLATELET COUNT (BEAKER) (test code 59 K/CU MM 150-450 L = 756) MEAN PLATELET VOLUME (BEAKER) 11.0 fL 9.4-12.3 (test code = 754) NUCLEATED RED BLOOD CELLS (BEAKER) 0 /100 WBC 0-0 (test code = 413) NEUTROPHILS RELATIVE PERCENT 63 % (BEAKER) (test code = 429) LYMPHOCYTES RELATIVE PERCENT 17 % (BEAKER) (test code = 430) MONOCYTES RELATIVE PERCENT 12 % (BEAKER) (test code = 431) EOSINOPHILS RELATIVE PERCENT 8 % (BEAKER) (test code = 432) BASOPHILS RELATIVE PERCENT 1 % (BEAKER) (test code = 437) NEUTROPHILS ABSOLUTE COUNT 2.99 K/ L 1.56-6.13 (BEAKER) (test code = 670) LYMPHOCYTES ABSOLUTE COUNT 0.80 K/ L 1.18-3.74 L (BEAKER) (test code = 414) MONOCYTES ABSOLUTE COUNT (BEAKER) 0.55 K/ L 0.24-0.36 H (test code = 415) EOSINOPHILS ABSOLUTE COUNT 0.37 K/ L 0.04-0.36 H (BEAKER) (test code = 416) BASOPHILS ABSOLUTE COUNT (BEAKER) 0.03 K/ L 0.01-0.08 (test code = 417) IMMATURE GRANULOCYTES-RELATIVE 0 % 0-1 PERCENT (BEAKER) (test code = 2801) URINALYSIS W/ REFLEX URINE [id number] 01:51:00 Test Item Value Reference Range Interpretation Comments COLOR (BEAKER) (test code = Yellow 470) CLARITY (BEAKER) (test code = Slightly Cloudy 469) SPECIFIC GRAVITY UA (BEAKER) 1.025 1.001-1.035 (test code = 468) PH UA (BEAKER) (test code = 5.5 5.0-8.0 467) PROTEIN UA (BEAKER) (test 30 mg/dL Negative A code = 464) GLUCOSE UA (BEAKER) (test Negative Negative code = 365) KETONES UA (BEAKER) (test Negative Negative code = 371) BILIRUBIN UA (BEAKER) (test Negative Negative code = 462) BLOOD UA (BEAKER) (test code Moderate Negative A = 461) NITRITE UA (BEAKER) (test Negative Negative code = 465) LEUKOCYTE ESTERASE UA Small Negative A (BEAKER) (test code = 466) UROBILINOGEN UA (BEAKER) 0.2 mg/dL 0.2-1.0 (test code = 463) RBC UA (BEAKER) (test code = 2 /HPF 519) WBC UA (BEAKER) (test code = 3 /HPF 520) BACTERIA (BEAKER) (test code Moderate = 517) MUCUS (BEAKER) (test code = Many 1574) SQUAMOUS EPITHELIAL (BEAKER) 2 /HPF (test code = 516) AMORPHOUS CRYSTALS (BEAKER) Moderate (test code = 1584) SOURCE(BEAKER) (test code = 2795) Economic Manager ID - [auto]Economic Manager ID - techB-TYPE NATRIURETIC FACTOR (BNP)2021-03-03 00:25:00 Test Item Value Reference Range Interpretation Comments B-TYPE NATRIURETIC PEPTIDE (BEAKER) 140 pg/mL 0-100 H (test code = 700) Economic Manager ID - DBBODY FLUID CELL COUNT WITH [id number] 19:42:00 Test Item Value Reference Range Interpretation Comments APPEARANCE FLUID Slightly Hazy Clear A (BEAKER) (test code = 510) COLOR FLUID (BEAKER) Yellow Colorless, Straw A (test code = 511) RBC FLUID (BEAKER) 620 /cu mm See_Comment H [Automat ed (test code = 513) message] T he system which generated this result transmitted reference range : <=1. The refere nce range was not u sed to interpret th is result as normal/abnormal . ADJUSTED WBC FLUID 149 /cu mm See_Comment H [Automat ed (BEAKER) (test code message] The system = 1691) which generated this result transmitted reference range : <=5. The refere nce range was not u sed to interpret th is result as normal/abnormal . LINING CELLS 3 /cu mm See_Comment H [Automated (BEAKER) (test code message] The system = 1590) which generated this result transmitted reference range : <=1. The refere nce range was not u sed to interpret th is result as normal/abnormal . NEUTROPHILS FLUID 13 % (BEAKER) (test code = 1656) LYMPHS FLUID 15 % (BEAKER) (test code = 488) MONO/MACROPHAGE 71 % FLUID (BEAKER) (test code = 489) EOSINOPHILS FLUID 1 % (BEAKER) (test code = 491) BASO FLUID (BEAKER) 0 % (test code = 492) CONTAINER BODY FLUID EDTA Tube (BEAKER) (test code = 2873) U/S, [id number] 18:21:00DR WINSLOWeferring: Dr. Eric Lindseyabs to be ordered:->Body Fluid Culture (w/Gram Stain, C\\T\\S)Labsto be ordered:- >Glucose+LDH+ProteinLabs to be ordered:->Cell CountReason for exam:- >[facility] : 1950 Sex: FFINAL REPORT Ultrasound guided paracentesis, 03/02/2021. Clini nathan History: Ascites. Sedation: None. Still Operator: Tracie. Basting Puller: None. Estimated Blood Loss: < 1 cc. Specimen: 2000 cc of clear yellow fluid, samples sent to laboratory. Technique: Informed consent was obtained. The risks of pain, bleeding, infection, bowel perforation,injury to adjacent structures, and adverse medication reactions were discussed with the patient. After informed consent was obtained, the patient's abdomen was scanned. The right lower quadrant of the abdomen was selected for paracentesis. After the largest fluid pocket area was marked, and the anterior abdominal wall was evaluated with color Doppler to exclude presence of blood vessels traversing the area, the skin was prepped and draped in the usual sterile manner. After local anesthesia was achieved with 1% lidocaine, a 5 [place] one-step catheter was advanced into the peritoneal cavity under ultrasound guidance. After completion of drainage, the catheter was removed. There was no evidence of complication. Patient Disposition: The patient was discharged from the ultrasound department after the paracentesis, in good condition. Impression:Successful ultrasound guided paracentesis. Signed:Jordon Martinez Verified Date/Time: 03/02/2021 18:21:14 Reading Location: [facility] B1 [id number] AngioBody Reading Room BASI METABOLIC [id number] 15:12:00 Test Item Value Reference Range Interpretation Comments SODIUM (BEAKER) 139 meq/L 136-145 (test code = 381) POTASSIUM (BEAKER) 4.2 meq/L 3.5-5.1 (test code = 379) CHLORIDE (BEAKER) 105 meq/L 98-107 (test code = 382) CO2 (BEAKER) (test 29 meq/L 22-29 code = 355) BLOOD UREA NITROGEN 12 mg/dL 7-21 (BEAKER) (test code = 354) CREATININE (BEAKER) 1.00 mg/dL 0.57-1.25 (test code = 358) GLUCOSE RANDOM 118 mg/dL 70-105 H (BEAKER) (test code = 652) CALCIUM (BEAKER) 8.2 mg/dL 8.4-10.2 L (test code = 697) EGFR (BEAKER) (test 55 mL/min/1.73 ESTIMA RABIA GFR IS code = 1092) sq m NOT ACCURATE CREATININE CLEARANCE IN PREDICTING GLOMERULAR FILTRATION RATE . ESTIMATED GFR I S NOT APPLICABLE FOR DIALYSIS PATIEN TS. Economic Manager ID - DBSpecimen slightly ictericHEPATIC FUNCTION [id number] 15:12:00 Test Item Value Reference Range Interpretation Comments TOTAL PROTEIN (BEAKER) (test code = 6.8 gm/dL 6.0-8.3 770) ALBUMIN (BEAKER) (test code = 1145) 2.3 g/dL 3.5-5.0 L BILIRUBIN TOTAL (BEAKER) (test code 2.4 mg/dL 0.2-1.2 H = 377) BILIRUBIN DIRECT (BEAKER) (test 1.0 mg/dL 0.1-0.5 H code = 706) ALKALINE PHOSPHATASE (BEAKER) (test 101 U/L 40-150 code = 346) AST (SGOT) (BEAKER) (test code = 23 U/L 5-34 353) ALT (SGPT) (BEAKER) (test code = 13 U/L 6-55 347) Economic Manager ID - DBSpecimen slightly [id number] 15:08:00 Test Item Value Reference Range Interpretation Comments PARTIAL THROMBOPLASTIN TIME 36.1 seconds 22.5-36.0 H (BEAKER) (test code = 760) PROTHROMBIN [id number] 15:07:00 Test Item Value Reference Range Interpretation Comments PROTIME (BEAKER) 17.3 seconds 11.9-14.2 H (test code = 759) INR (BEAKER) (test 1.46 See_Comment [Automat ed message] code = 370) The system [employer] generated this result transmitted ref erence range: [...] mechanical heart valves.CBC W/PLT COUNT & AUTO [id number] 14:53:00 Test Item Value Reference Range Interpretation Comments WHITE BLOOD CELL COUNT (BEAKER) 5.5 K/ L 3.5-10.5 (test code = 775) RED BLOOD CELL COUNT (BEAKER) 3.05 M/ L 3.93-5.22 L (test code = 761) HEMOGLOBIN (BEAKER) (test code = 9.8 GM/DL 11.2-15.7 L 410) HEMATOCRIT (BEAKER) (test code = 31.9 % 34.1-44.9 L 411) MEAN CORPUSCULAR VOLUME (BEAKER) 104.6 fL 79.4-94.8 H (test code = 753) MEAN CORPUSCULAR HEMOGLOBIN 32.1 pg 25.6-32.2 (BEAKER) (test code = 751) MEAN CORPUSCULAR HEMOGLOBIN CONC 30.7 GM/DL 32.2-35.5 L (BEAKER) (test code = 752) RED CELL DISTRIBUTION WIDTH 15.9 % 11.7-14.4 H (BEAKER) (test code = 412) PLATELET COUNT (BEAKER) (test code 66 K/CU MM 150-450 L = 756) MEAN PLATELET VOLUME (BEAKER) 10.6 fL 9.4-12.3 (test code = 754) NUCLEATED RED BLOOD CELLS (BEAKER) 0 /100 WBC 0-0 (test code = 413) NEUTROPHILS RELATIVE PERCENT 71 % (BEAKER) (test code = 429) LYMPHOCYTES RELATIVE PERCENT 15 % (BEAKER) (test code = 430) MONOCYTES RELATIVE PERCENT 9 % (BEAKER) (test code = 431) EOSINOPHILS RELATIVE PERCENT 4 % (BEAKER) (test code = 432) BASOPHILS RELATIVE PERCENT 1 % (BEAKER) (test code = 437) NEUTROPHILS ABSOLUTE COUNT 3.87 K/ L 1.56-6.13 (BEAKER) (test code = 670) LYMPHOCYTES ABSOLUTE COUNT 0.84 K/ L 1.18-3.74 L (BEAKER) (test code = 414) MONOCYTES ABSOLUTE COUNT (BEAKER) 0.49 K/ L 0.24-0.36 H (test code = 415) EOSINOPHILS ABSOLUTE COUNT 0.24 K/ L 0.04-0.36 (BEAKER) (test code = 416) BASOPHILS ABSOLUTE COUNT (BEAKER) 0.03 K/ L 0.01-0.08 (test code = 417) IMMATURE GRANULOCYTES-RELATIVE 0 % 0-1 PERCENT (BEAKER) (test code = 2801) COMPREHENSIVE METABOLIC [id number] 14:28:00 Test Item Value Reference Range Interpretation Comments TOTAL PROTEIN 6.9 gm/dL 6.0-8.3 (BEAKER) (test code = 770) ALBUMIN (BEAKER) 2.3 g/dL 3.5-5.0 L (test code = 1145) ALKALINE PHOSPHATASE 111 U/L 40-150 (BEAKER) (test code = 346) BILIRUBIN TOTAL 1.9 mg/dL 0.2-1.2 H (BEAKER) (test code = 377) SODIUM (BEAKER) (test 137 meq/L 136-145 code = 381) POTASSIUM (BEAKER) 4.2 meq/L 3.5-5.1 (test code = 379) CHLORIDE (BEAKER) 104 meq/L 98-107 (test code = 382) CO2 (BEAKER) (test 28 meq/L 22-29 code = 355) BLOOD UREA NITROGEN 12 mg/dL 7-21 (BEAKER) (test code = 354) CREATININE (BEAKER) 1.09 mg/dL 0.57-1.25 (test code = 358) GLUCOSE RANDOM 139 mg/dL 70-105 H (BEAKER) (test code = 652) CALCIUM (BEAKER) 7.9 mg/dL 8.4-10.2 L (test code = 697) AST (SGOT) (BEAKER) 25 U/L 5-34 (test code = 353) ALT (SGPT) (BEAKER) 12 U/L 6-55 (test code = 347) EGFR (BEAKER) (test 50 mL/min/1.73 ESTIMA RABIA GFR IS code = 1092) sq m NOT ACCURATE CREATININE CLEARANCE IN PREDICTING GLOMERULAR FILTRATION RATE . ESTIMATED GFR I S NOT APPLICABLE FOR DIALYSIS PATIEN TS. Economic Manager ID - EDASIPROTHROMBIN TIME/[id number] 14:14:00 Test Item Value Reference Range Interpretation Comments PROTIME (BEAKER) 17.1 seconds 11.9-14.2 H (test code = 759) INR (BEAKER) (test 1.43 See_Comment [Automat ed message] code = 370) The system [employer] generated this result transmitted ref erence range: [...] mechanical heart valves.CBC W/PLT COUNT & AUTO [id number] 14:10:00 Test Item Value Reference Range Interpretation Comments WHITE BLOOD CELL COUNT (BEAKER) 5.6 K/ L 3.5-10.5 (test code = 775) RED BLOOD CELL COUNT (BEAKER) 3.14 M/ L 3.93-5.22 L (test code = 761) HEMOGLOBIN (BEAKER) (test code = 10.1 GM/DL 11.2-15.7 L 410) HEMATOCRIT (BEAKER) (test code = 33.2 % 34.1-44.9 L 411) MEAN CORPUSCULAR VOLUME (BEAKER) 105.7 fL 79.4-94.8 H (test code = 753) MEAN CORPUSCULAR HEMOGLOBIN 32.2 pg 25.6-32.2 (BEAKER) (test code = 751) MEAN CORPUSCULAR HEMOGLOBIN CONC 30.4 GM/DL 32.2-35.5 L (BEAKER) (test code = 752) RED CELL DISTRIBUTION WIDTH 15.9 % 11.7-14.4 H (BEAKER) (test code = 412) PLATELET COUNT (BEAKER) (test code 69 K/CU MM 150-450 L = 756) MEAN PLATELET VOLUME (BEAKER) 11.1 fL 9.4-12.3 (test code = 754) NUCLEATED RED BLOOD CELLS (BEAKER) 0 /100 WBC 0-0 (test code = 413) NEUTROPHILS RELATIVE PERCENT 72 % (BEAKER) (test code = 429) LYMPHOCYTES RELATIVE PERCENT 12 % (BEAKER) (test code = 430) MONOCYTES RELATIVE PERCENT 9 % (BEAKER) (test code = 431) EOSINOPHILS RELATIVE PERCENT 6 % (BEAKER) (test code = 432) BASOPHILS RELATIVE PERCENT 1 % (BEAKER) (test code = 437) NEUTROPHILS ABSOLUTE COUNT 4.01 K/ L 1.56-6.13 (BEAKER) (test code = 670) LYMPHOCYTES ABSOLUTE COUNT 0.67 K/ L 1.18-3.74 L (BEAKER) (test code = 414) MONOCYTES ABSOLUTE COUNT (BEAKER) 0.50 K/ L 0.24-0.36 H (test code = 415) EOSINOPHILS ABSOLUTE COUNT 0.32 K/ L 0.04-0.36 (BEAKER) (test code = 416) BASOPHILS ABSOLUTE COUNT (BEAKER) 0.04 K/ L 0.01-0.08 (test code = 417) IMMATURE GRANULOCYTES-RELATIVE 0 % 0-1 PERCENT (BEAKER) (test code = 2801) MR, ABDOMEN, [id number] 11:27:00DR JAMES Referring: Dr. Eric Neal LIVER PROTOCOL PLEASE FAX RESULTS TO OMI WALL NP AT [phone]. LIVER PROTOCOL PLEASE FAX RESULTS TO OMI WALL NP AT [phone]. [facility] : 1950 Sex: FFINAL REPORT TECHNIQUE: MRI of the abdomen WITHOUT and WITH int ravenous contrast. INDICATION: 70-year-old woman with cirrhosis. COMPARISON: Abdomen MRI 11/26/2020.FINDINGS: LOWER THORAX: Bibasilar pulmonary opacities. LIVER: Cirrhotic morphology of the liver. No suspicious liver observation. BILIARY: Gallbladder is contracted. No biliary ductal dilatation or filling defect.SPLEEN: Spleen is prominent and measures 14.2 cm in the craniocaudal dimension. Chronic splenic infarcts.PANCREAS: Cystic lesions in the junction of the pancreatic body and tail have increased in size from 0.6 cm to 1.2 x 1.3 cm and from 0.7 cm to 1.2 x 1.3 cm. No significant change in additional pancreatic cystic lesions which measure up to 1.1 x 0.7 cm. No ductal dilatation. ADRENALS: Noadrenal nodule.KIDNEYS/URETERS: No hydronephrosis or mass. 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 Main portal vein is prominent and measures 1.7 cm in diameter. Recanalized umbilical vein. Small esophageal varices. GI TRACT: No distention or wall thickening. BONES AND SOFT TISSUES: Unremarkable. IMPRESSION:Cirrhosis with portal hypertension and moderate volume ascites. No suspicious liver observation. 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 Two 1.3 cm pancreatic cystic lesions have increased by over 50% in size since 11/26/2020 and may be further evaluated with endoscopic ultrasound/fine-needle aspiration. Other pancreatic cystic lesions, which measure up to 1.1 cm, are unchanged. Signed: Sheron Aranda Verified Date/Time: 02/09/2021 11:27:04 Reading Location: [facility] Diagnostic Imaging Reading Room - [place] [address] ALPHA FETOPROTEIN (AFP), TUMOR [id number] 13:26:00 Test Item Value Reference Range Interpretation Comments ALPHA-FETOPROTEIN (BEAKER) (test 2.1 ng/mL <10.0 code = 1094) Economic Manager WENDY OLSEN FBASIC METABOLIC [id number] 13:09:00 Test Item Value Reference Range Interpretation Comments SODIUM (BEAKER) 138 meq/L 136-145 (test code = 381) POTASSIUM (BEAKER) 4.3 meq/L 3.5-5.1 (test code = 379) CHLORIDE (BEAKER) 104 meq/L 98-107 (test code = 382) CO2 (BEAKER) (test 26 meq/L 22-29 code = 355) BLOOD UREA NITROGEN 17 mg/dL 7-21 (BEAKER) (test code = 354) CREATININE (BEAKER) 1.01 mg/dL 0.57-1.25 (test code = 358) GLUCOSE RANDOM 109 mg/dL 70-105 H (BEAKER) (test code = 652) CALCIUM (BEAKER) 8.6 mg/dL 8.4-10.2 (test code = 697) EGFR (BEAKER) (test 54 mL/min/1.73 ESTIMA RABIA GFR IS code = 1092) sq m NOT ACCURATE CREATININE CLEARANCE IN PREDICTING GLOMERULAR FILTRATION RATE . ESTIMATED GFR I S NOT APPLICABLE FOR DIALYSIS PATIEN TS. Economic Manager WENDY HYATTpecimen slightly ictericHEPATIC FUNCTION PANEL 2021-02-04 13:09:00 Test Item Value Reference Range Interpretation Comments TOTAL PROTEIN (BEAKER) (test code = 7.0 gm/dL 6.0-8.3 770) ALBUMIN (BEAKER) (test code = 1145) 2.4 g/dL 3.5-5.0 L BILIRUBIN TOTAL (BEAKER) (test code 2.5 mg/dL 0.2-1.2 H = 377) BILIRUBIN DIRECT (BEAKER) (test 1.1 mg/dL 0.1-0.5 H code = 706) ALKALINE PHOSPHATASE (BEAKER) (test 130 U/L 40-150 code = 346) AST (SGOT) (BEAKER) (test code = 29 U/L 5-34 353) ALT (SGPT) (BEAKER) (test code = 16 U/L 6-55 347) Economic Manager ID - CAROL[place] FSpecimen slightly ictericPROTHROMBIN TIME/[id number] 13:03:00 Test Item Value Reference Range Interpretation Comments PROTIME (BEAKER) 17.1 seconds 11.9-14.2 H (test code = 759) INR (BEAKER) (test 1.43 See_Comment [Automat ed message] code = 370) The system [employer] generated this result transmitted ref erence range: [...] mechanical heart valves.CBC W/PLT COUNT & AUTO [id number] 12:39:00 Test Item Value Reference Range Interpretation Comments WHITE BLOOD CELL COUNT (BEAKER) 5.7 K/ L 3.5-10.5 (test code = 775) RED BLOOD CELL COUNT (BEAKER) 3.12 M/ L 3.93-5.22 L (test code = 761) HEMOGLOBIN (BEAKER) (test code = 10.4 GM/DL 11.2-15.7 L 410) HEMATOCRIT (BEAKER) (test code = 32.4 % 34.1-44.9 L 411) MEAN CORPUSCULAR VOLUME (BEAKER) 103.8 fL 79.4-94.8 H (test code = 753) MEAN CORPUSCULAR HEMOGLOBIN 33.3 pg 25.6-32.2 H (BEAKER) (test code = 751) MEAN CORPUSCULAR HEMOGLOBIN CONC 32.1 GM/DL 32.2-35.5 L (BEAKER) (test code = 752) RED CELL DISTRIBUTION WIDTH 15.1 % 11.7-14.4 H (BEAKER) (test code = 412) PLATELET COUNT (BEAKER) (test code 76 K/CU MM 150-450 L = 756) MEAN PLATELET VOLUME (BEAKER) 9.7 fL 9.4-12.3 (test code = 754) NUCLEATED [...] (test code = 437) NEUTROPHILS ABSOLUTE COUNT 4.00 K/ L 1.56-6.13 (BEAKER) (test code = 670) LYMPHOCYTES ABSOLUTE COUNT 0.99 K/ L 1.18-3.74 L (BEAKER) (test code = 414) MONOCYTES ABSOLUTE COUNT (BEAKER) 0.49 K/ L 0.24-0.36 H (test code = 415) EOSINOPHILS ABSOLUTE COUNT 0.16 K/ L 0.04-0.36 (BEAKER) (test code = 416) BASOPHILS ABSOLUTE COUNT (BEAKER) 0.04 K/ L 0.01-0.08 (test code = 417) IMMATURE GRANULOCYTES-RELATIVE 0 % 0-1 PERCENT (BEAKER) (test code = 2801) BLOOD [id number] 00:00:00 Test Item Value Reference Range Interpretation Comments CULTURE (BEAKER) (test No growth in 5 days code = 1095) POCT-GLUCOSE [id number] 17:00:00 Test Item Value Reference Range Interpretation Comments POC-GLUCOSE METER 154 mg/dL 70-110 H : TESTED A T [facility] 6720 (BEAKER) (test code = [facility], 1538) [id number]: Economic Manager/Techni juan antonio ID = [id number] for OR PHEY, COLEMAN POCT-GLUCOSE [id number] 11:33:00 Test Item Value Reference Range Interpretation Comments POC-GLUCOSE METER 126 mg/dL 70-110 H : TESTED A T [facility] 6720 (BEAKER) (test code = [facility], 1538) [id number]: Economic Manager/Techni juan antonio ID = [id number] for OR PHEY, COLEMAN BLOOD [id number] 09:00:00 Test Item Value Reference Range Interpretation Comments CULTURE (BEAKER) (test No growth in 5 days code = 1095) POCT-GLUCOSE [id number] 08:14:00 Test Item Value Reference Range Interpretation Comments POC-GLUCOSE METER 97 mg/dL 70-110 : [facility] (BEAKER) (test code = [facility] [place], 1538) [id number]: Economic Manager/Techni juan antonio ID = [id number] for COLEMAN KRAFT COMPREHENSIVE METABOLIC [id number] 05:20:00 Test Item Value Reference Range Interpretation Comments TOTAL PROTEIN 5.6 gm/dL 6.0-8.3 L (BEAKER) (test code = 770) ALBUMIN (BEAKER) 2.2 g/dL 3.5-5.0 L (test code = 1145) ALKALINE PHOSPHATASE 113 U/L 40-150 (BEAKER) (test code = 346) BILIRUBIN TOTAL 2.4 mg/dL 0.2-1.2 H (BEAKER) (test code = 377) SODIUM (BEAKER) (test 137 meq/L 136-145 code = 381) POTASSIUM (BEAKER) 3.9 meq/L 3.5-5.1 (test code = 379) CHLORIDE (BEAKER) 100 meq/L 98-107 (test code = 382) CO2 (BEAKER) (test 31 meq/L 22-29 H code = 355) BLOOD UREA NITROGEN 16 mg/dL 7-21 (BEAKER) (test code = 354) CREATININE (BEAKER) 0.99 mg/dL 0.57-1.25 (test code = 358) GLUCOSE RANDOM 103 mg/dL 70-105 (BEAKER) (test code = 652) CALCIUM (BEAKER) 7.9 mg/dL 8.4-10.2 L (test code = 697) AST (SGOT) (BEAKER) 30 U/L 5-34 (test code = 353) ALT (SGPT) (BEAKER) 27 U/L 6-55 (test code = 347) EGFR (BEAKER) (test 55 mL/min/1.73 ESTIMA RABIA GFR IS code = 1092) sq m NOT ACCURATE CREATININE CLEARANCE IN PREDICTING GLOMERULAR FILTRATION RATE . ESTIMATED GFR I S NOT APPLICABLE FOR DIALYSIS PATIEN TS. Economic Manager ID - ALIZA MSpecimen slightly ictericCBC W/PLT COUNT & AUTO [id number] 04:42:00 Test Item Value Reference Range Interpretation Comments WHITE BLOOD CELL COUNT (BEAKER) 4.9 K/ L 3.5-10.5 (test code = 775) RED BLOOD CELL COUNT (BEAKER) 2.81 M/ L 3.93-5.22 L (test code = 761) HEMOGLOBIN (BEAKER) (test code = 8.5 GM/DL 11.2-15.7 L 410) HEMATOCRIT (BEAKER) (test code = 27.9 % 34.1-44.9 L 411) MEAN CORPUSCULAR VOLUME (BEAKER) 99.3 fL 79.4-94.8 H (test code = 753) MEAN CORPUSCULAR HEMOGLOBIN 30.2 pg 25.6-32.2 (BEAKER) (test code = 751) MEAN CORPUSCULAR HEMOGLOBIN CONC 30.5 GM/DL 32.2-35.5 L (BEAKER) (test code = 752) RED CELL DISTRIBUTION WIDTH 26.8 % 11.7-14.4 H (BEAKER) (test code = 412) PLATELET COUNT (BEAKER) (test code 39 K/CU MM 150-450 L = 756) MEAN PLATELET VOLUME (BEAKER) 9.5 fL 9.4-12.3 (test code = 754) NUCLEATED RED BLOOD CELLS (BEAKER) 0 /100 WBC 0-0 (test code = 413) NEUTROPHILS RELATIVE PERCENT 63 % (BEAKER) (test code = 429) LYMPHOCYTES RELATIVE PERCENT 21 % (BEAKER) (test code = 430) MONOCYTES RELATIVE PERCENT 11 % (BEAKER) (test code = 431) EOSINOPHILS RELATIVE PERCENT 4 % (BEAKER) (test code = 432) BASOPHILS RELATIVE PERCENT 1 % (BEAKER) (test code = 437) NEUTROPHILS ABSOLUTE COUNT 3.12 K/ L 1.56-6.13 (BEAKER) (test code = 670) LYMPHOCYTES ABSOLUTE COUNT 1.01 K/ L 1.18-3.74 L (BEAKER) (test code = 414) MONOCYTES ABSOLUTE COUNT (BEAKER) 0.55 K/ L 0.24-0.36 H (test code = 415) EOSINOPHILS ABSOLUTE COUNT 0.19 K/ L 0.04-0.36 (BEAKER) (test code = 416) BASOPHILS ABSOLUTE COUNT (BEAKER) 0.03 K/ L 0.01-0.08 (test code = 417) IMMATURE GRANULOCYTES-RELATIVE 0 % 0-1 PERCENT (BECYNTHIA) (test code = 2801) [id number] 04:34:00 Test Item Value Reference Range Interpretation Comments PARTIAL THROMBOPLASTIN TIME 41.4 seconds 22.5-36.0 H (HANNAAKER) (test code = 760) PROTHROMBIN [id number] 04:33:00 Test Item Value Reference Range Interpretation Comments PROTIME (BEAKER) 18.5 seconds 11.9-14.2 H (test code = 759) INR (BECYNTHIA) (test 1.59 See_Comment [Automat ed message] code = 370) The system [employer] generated this result transmitted ref erence range: <=5.90. The reference range was not used to int erpret this result as normal/abnormal . Effective 03/14/2019: PT Reference Range ChangeNew: 11.9-14.2 Previous: 11.7- 14.7RECOMMENDED COUMADIN/WARFARIN INR THERAPY RANGESSTANDARD DOSE: 2.0-3.0 Includes: PROPHYLAXIS for venous thrombosis, systemic embolization; TREATMENT for venous thrombosis and/or pulmonary embolus.HIGH RISK: Target INR is2.5-3.5 for patients wiht mechanical heart valves.POCT-GLUCOSE [id number] 20:49:00 Test Item Value Reference Range Interpretation Comments POC-GLUCOSE METER 182 mg/dL 70-110 H : TESTED A T [facility] 6720 (Bundle It) (test code = [facility] [employer] [facility], 153) [id number]: Economic Manager/Techni juan antonio ID = [id number] for NAIMA RICHARDO POCT-GLUCOSE [id number] 17:45:00 Test Item Value Reference Range Interpretation Comments POC-GLUCOSE METER 136 mg/dL 70-110 H : TESTED A T [facility] 6720 (Bundle It) (test code = [facility] [employer] [facility], 1538) [address]: Economic Manager/Techni juan antonio ID = [id number] for Lu Mcrae POCT-GLUCOSE [id number] 11:31:00 Test Item Value Reference Range Interpretation Comments POC-GLUCOSE METER 142 mg/dL 70-110 H : TESTED A T [facility] 6720 (Bundle It) (test code = [facility] [employer] [facility], 1538) [id number]: Economic Manager/Techni juan antonio ID = [id number] for Lu Mcrae POCT-GLUCOSE [id number] 08:36:00 Test Item Value Reference Range Interpretation Comments POC-GLUCOSE METER 93 mg/dL 70-110 : TESTED A T [facility] 6720 (BEAKER) (test code = [facility] [place], 1538) [address]: Economic Manager/Techni juan antonio ID = [id number] for CHINO MUNOZ COMPREHENSIVE METABOLIC [id number] 06:31:00 Test Item Value Reference Range Interpretation Comments TOTAL PROTEIN 5.5 gm/dL 6.0-8.3 L (BEAKER) (test code = 770) ALBUMIN (BEAKER) 2.0 g/dL 3.5-5.0 L (test code = 1145) ALKALINE PHOSPHATASE 119 U/L 40-150 (BEAKER) (test code = 346) BILIRUBIN TOTAL 2.3 mg/dL 0.2-1.2 H (BEAKER) (test code = 377) SODIUM (BEAKER) (test 137 meq/L 136-145 code = 381) POTASSIUM (BEAKER) 3.9 meq/L 3.5-5.1 (test code = 379) CHLORIDE (BEAKER) 101 meq/L 98-107 (test code = 382) CO2 (BEAKER) (test 29 meq/L 22-29 code = 355) BLOOD UREA NITROGEN 17 mg/dL 7-21 (BEAKER) (test code = 354) CREATININE (BEAKER) 1.03 mg/dL 0.57-1.25 (test code = 358) GLUCOSE RANDOM 94 mg/dL 70-105 (BEAKER) (test code = 652) CALCIUM (BEAKER) 7.9 mg/dL 8.4-10.2 L (test code = 697) AST (SGOT) (BEAKER) 28 U/L 5-34 (test code = 353) ALT (SGPT) (BEAKER) 24 U/L 6-55 (test code = 347) EGFR (BEAKER) (test 53 mL/min/1.73 ESTIMA RABIA GFR IS code = 1092) sq m NOT ACCURATE CREATININE CLEARANCE IN PREDICTING GLOMERULAR FILTRATION RATE . ESTIMATED GFR I S NOT APPLICABLE FOR DIALYSIS PATIEN TS. Economic Manager ID - ALIZA MSpecimen slightly ictericU/S, RENAL, [id number] 06:29:00DR Wellserring: Dr. Eric Morel for exam:->JOSE MANUEL left hydronephrosisCHI [facility] : 1950 Sex: FFINAL REPORT Ultrasound of the Kidneys Clinical History: JOSE MANUEL l eft hydronephrosis Comparison: Renal ultrasound 12/08/2020. Discussion: Sonographic evaluation of thekidneys was performed. The examination is limited due to excessive bowel gas. Right kidney: 11.2 x 5.6 x 5.9 cm, with cortical thickness of 1.3 cm. Normal cortical echogenicity. No mass. No shadowing calculus. No hydronephrosis. Left kidney: 10.3 x 5 x 4.2 cm, with cortical thickness of 1.0 cm. Normal cortical echogenicity. No mass. No shadowing calculus. No hydronephrosis. Limited doppler evaluation of bilateral main renal arteries and veins demonstrate patency. Bladder: Decompressed due to Swift catheter placement. Miscellaneous: Small right upper quadrant ascites. Cirrhotic liver. Impression:Limited exam.No hydronephrosis.Small right upper quadrant ascites.Liver cirrhosis. Signed: Amy Villavicencio Verified Date/Time: 12/14/2020 06:29:34 PROTHROMBIN [id number] 06:09:00 Test Item Value Reference Range Interpretation Comments PROTIME (BEAKER) 19.3 seconds 11.9-14.2 H (test code = 759) INR (BEAKER) (test 1.67 See_Comment [Automat ed message] code = 370) The system [employer] generated this result transmitted ref erence range: <=5.90. The reference range was not used to int erpret this result as normal/abnormal . Effective 03/14/2019: PT Reference Range ChangeNew: 11.9-14.2 Previous: 11.7- 14.7RECOMMENDED COUMADIN/WARFARIN INR THERAPY RANGESSTANDARD DOSE: 2.0-3.0 Includes: PROPHYLAXIS for venous thrombosis, systemic embolization; TREATMENT for venous thrombosis and/or pulmonary embolus.HIGH RISK: Target INR is2.5-3.5 for patients wiht mechanical heart valves.[id number] 06:09:00 Test Item Value Reference Range Interpretation Comments PARTIAL THROMBOPLASTIN TIME 44.9 seconds 22.5-36.0 H (BEAKER) (test code = 760) CBC W/PLT COUNT & AUTO [id number] 06:05:00 Test Item Value Reference Range Interpretation Comments WHITE BLOOD CELL COUNT (BEAKER) 4.7 K/ L 3.5-10.5 (test code = 775) RED BLOOD CELL COUNT (BEAKER) 2.82 M/ L 3.93-5.22 L (test code = 761) HEMOGLOBIN (BEAKER) (test code = 8.5 GM/DL 11.2-15.7 L 410) HEMATOCRIT (BEAKER) (test code = 27.2 % 34.1-44.9 L 411) MEAN CORPUSCULAR VOLUME (BEAKER) 96.5 fL 79.4-94.8 H (test code = 753) MEAN CORPUSCULAR HEMOGLOBIN 30.1 pg 25.6-32.2 (BEAKER) (test code = 751) MEAN CORPUSCULAR HEMOGLOBIN CONC 31.3 GM/DL 32.2-35.5 L (BEAKER) (test code = 752) RED CELL DISTRIBUTION WIDTH 26.7 % 11.7-14.4 H (BEAKER) (test code = 412) PLATELET COUNT (BEAKER) (test code 44 K/CU MM 150-450 L = 756) MEAN PLATELET VOLUME (BEAKER) 10.6 fL 9.4-12.3 (test code = 754) NUCLEATED RED BLOOD CELLS (BEAKER) 0 /100 WBC 0-0 (test code = 413) NEUTROPHILS RELATIVE PERCENT 63 % (BEAKER) (test code = 429) LYMPHOCYTES RELATIVE PERCENT 19 % (BEAKER) (test code = 430) MONOCYTES RELATIVE PERCENT 13 % (BEAKER) (test code = 431) EOSINOPHILS RELATIVE PERCENT 4 % (BEAKER) (test code = 432) BASOPHILS RELATIVE PERCENT 1 % (BEAKER) (test code = 437) NEUTROPHILS ABSOLUTE COUNT 3.00 K/ L 1.56-6.13 (BEAKER) (test code = 670) LYMPHOCYTES ABSOLUTE COUNT 0.88 K/ L 1.18-3.74 L (BEAKER) (test code = 414) MONOCYTES ABSOLUTE COUNT (BEAKER) 0.63 K/ L 0.24-0.36 H (test code = 415) EOSINOPHILS ABSOLUTE COUNT 0.19 K/ L 0.04-0.36 (BEAKER) (test code = 416) BASOPHILS ABSOLUTE COUNT (BEAKER) 0.03 K/ L 0.01-0.08 (test code = 417) IMMATURE GRANULOCYTES-RELATIVE 0 % 0-1 PERCENT (BEAKER) (test code = 2801) POCT-GLUCOSE [id number] 21:09:00 Test Item Value Reference Range Interpretation Comments POC-GLUCOSE METER 180 mg/dL 70-110 H : TESTED A T [facility] 6720 (BEAKER) (test code = [facility], 153) [id number]: Economic Manager/Techni juan antonio ID = [id number] for KATIE LOO POCT-GLUCOSE [id number] 18:29:00 Test Item Value Reference Range Interpretation Comments POC-GLUCOSE METER 120 mg/dL 70-110 H : TESTED A T [facility] (BEAKER) (test code = [facility], 1538) [id number]: Economic Manager/Techni juan antonio ID = [id number] for Lu Mcrae POCT-GLUCOSE [id number] 12:18:00 Test Item Value Reference Range Interpretation Comments POC-GLUCOSE METER 106 mg/dL 70-110 : TESTED A T [facility] (BEAKER) (test code = [facility], 1538) [id number]: Economic Manager/Techni juan antonio ID = [id number] for Lu Mcrae POCT-GLUCOSE [id number] 09:32:00 Test Item Value Reference Range Interpretation Comments POC-GLUCOSE METER 94 mg/dL 70-110 : TESTED A T [facility] 6720 (BEAKER) (test code = [facility] [place], 1538) [id number]: Economic Manager/Techni juan antonio ID = [id number] for CHINO MUNOZ POCT-GLUCOSE [id number] 06:00:00 Test Item Value Reference Range Interpretation Comments POC-GLUCOSE METER 124 mg/dL 70-110 H : TESTED A T [facility] 6720 (BEAKER) (test code = [facility], 1538) 51623: Economic Manager/Techni juan antonio ID = [id number] for YONI DOLAN COMPREHENSIVE METABOLIC [id number] 02:50:00 Test Item Value Reference Range Interpretation Comments TOTAL PROTEIN 5.2 gm/dL 6.0-8.3 L (BEAKER) (test code = 770) ALBUMIN (BEAKER) 2.0 g/dL 3.5-5.0 L (test code = 1145) ALKALINE PHOSPHATASE 113 U/L 40-150 (BEAKER) (test code = 346) BILIRUBIN TOTAL 2.2 mg/dL 0.2-1.2 H (BEAKER) (test code = 377) SODIUM (BEAKER) (test 139 meq/L 136-145 code = 381) POTASSIUM (BEAKER) 3.7 meq/L 3.5-5.1 (test code = 379) CHLORIDE (BEAKER) 102 meq/L 98-107 (test code = 382) CO2 (BEAKER) (test 30 meq/L 22-29 H code = 355) BLOOD UREA NITROGEN 16 mg/dL 7-21 (BEAKER) (test code = 354) CREATININE (BEAKER) 1.04 mg/dL 0.57-1.25 (test code = 358) GLUCOSE RANDOM 137 mg/dL 70-105 H (BEAKER) (test code = 652) CALCIUM (BEAKER) 7.8 mg/dL 8.4-10.2 L (test code = 697) AST (SGOT) (BEAKER) 24 U/L 5-34 (test code = 353) ALT (SGPT) (BEAKER) 26 U/L 6-55 (test code = 347) EGFR (BEAKER) (test 52 mL/min/1.73 ESTIMA RABIA GFR IS code = 1092) sq m NOT ACCURATE CREATININE CLEARANCE IN PREDICTING GLOMERULAR FILTRATION RATE . ESTIMATED GFR I S NOT APPLICABLE FOR DIALYSIS PATIEN TS. Economic Manager ID - ALIZA MSpecimen slightly ictericPROTHROMBIN TIME/[id number] 02:41:00 Test Item Value Reference Range Interpretation Comments PROTIME (BEAKER) 19.5 seconds 11.9-14.2 H (test code = 759) INR (BEAKER) (test 1.70 See_Comment [Automat ed message] code = 370) The system [employer] generated this result transmitted ref erence range: <=5.90. The reference range was not used to int erpret this result as normal/abnormal . Effective 03/14/2019: PT Reference Range ChangeNew: 11.9-14.2 Previous: 11.7- 14.7RECOMMENDED COUMADIN/WARFARIN INR THERAPY RANGESSTANDARD DOSE: 2.0-3.0 Includes: PROPHYLAXIS for venous thrombosis, systemic embolization; TREATMENT for venous thrombosis and/or pulmonary embolus.HIGH RISK: Target INR is2.5-3.5 for patients wiht mechanical heart valves.[id number] 02:41:00 Test Item Value Reference Range Interpretation Comments PARTIAL THROMBOPLASTIN TIME 45.0 seconds 22.5-36.0 H (BEAKER) (test code = 760) CBC W/PLT COUNT & AUTO [id number] 02:28:00 Test Item Value Reference Range Interpretation Comments WHITE BLOOD CELL COUNT (BEAKER) 5.0 K/ L 3.5-10.5 (test code = 775) RED BLOOD CELL COUNT (BEAKER) 2.75 M/ L 3.93-5.22 L (test code = 761) HEMOGLOBIN (BEAKER) (test code = 8.2 GM/DL 11.2-15.7 L 410) HEMATOCRIT (BEAKER) (test code = 26.3 % 34.1-44.9 L 411) MEAN CORPUSCULAR VOLUME (BEAKER) 96.4 fL 79.4-94.8 H (test code = 753) MEAN CORPUSCULAR HEMOGLOBIN 29.8 pg 25.6-32.2 (BEAKER) (test code = 751) MEAN CORPUSCULAR HEMOGLOBIN CONC 30.9 GM/DL 32.2-35.5 L (BEAKER) (test code = 752) RED CELL DISTRIBUTION WIDTH 26.1 % 11.7-14.4 H (BEAKER) (test code = 412) PLATELET COUNT (BEAKER) (test code 45 K/CU MM 150-450 L = 756) MEAN PLATELET VOLUME (BEAKER) 11.4 fL 9.4-12.3 (test code = 754) NUCLEATED RED BLOOD CELLS (BEAKER) 0 /100 WBC 0-0 (test code = 413) NEUTROPHILS RELATIVE PERCENT 66 % (BEAKER) (test code = 429) LYMPHOCYTES RELATIVE PERCENT 18 % (BEAKER) (test code = 430) MONOCYTES RELATIVE PERCENT 13 % (BEAKER) (test code = 431) EOSINOPHILS RELATIVE PERCENT 3 % (BEAKER) (test code = 432) BASOPHILS RELATIVE PERCENT 1 % (BEAKER) (test code = 437) NEUTROPHILS ABSOLUTE COUNT 3.29 K/ L 1.56-6.13 (BEAKER) (test code = 670) LYMPHOCYTES ABSOLUTE COUNT 0.89 K/ L 1.18-3.74 L (BEAKER) (test code = 414) MONOCYTES ABSOLUTE COUNT (BEAKER) 0.64 K/ L 0.24-0.36 H (test code = 415) EOSINOPHILS ABSOLUTE COUNT 0.14 K/ L 0.04-0.36 (BEAKER) (test code = 416) BASOPHILS ABSOLUTE COUNT (BEAKER) 0.03 K/ L 0.01-0.08 (test code = 417) IMMATURE GRANULOCYTES-RELATIVE 1 % 0-1 PERCENT (BEAKER) (test code = 2801) HEMOGLOBIN AND [id number] 02:16:00 Test Item Value Reference Range Interpretation Comments HEMOGLOBIN (BEAKER) (test code = 8.2 GM/DL 11.2-15.7 L 410) HEMATOCRIT (BEAKER) (test code = 26.3 % 34.1-44.9 L 411) POCT-GLUCOSE [id number] 23:32:00 Test Item Value Reference Range Interpretation Comments POC-GLUCOSE METER 127 mg/dL 70-110 H : TESTED A T [facility] 6720 (BEAKER) (test code = [place], 1538) [address]: Economic Manager/Techni juan antonio ID = [id number] for KATIE LOO HEMOGLOBIN AND [id number] 18:28:00 Test Item Value Reference Range Interpretation Comments HEMOGLOBIN (BEAKER) (test code = 8.2 GM/DL 11.2-15.7 L 410) HEMATOCRIT (BEAKER) (test code = 26.7 % 34.1-44.9 L 411) Economic Manager ID - [id number] ID - [id number]-GLUCOSE [id number] 17:02:00 Test Item Value Reference Range Interpretation Comments POC-GLUCOSE METER 139 mg/dL 70-110 H : TESTED A T [facility] 6720 (BEAKER) (test code [facility], = 1538) [address]: Economic Manager/Techni juan antonio ID = [id number] for TSEG GAI, TSIGHEREDA POCT-GLUCOSE [id number] 13:03:00 Test Item Value Reference Range Interpretation Comments POC-GLUCOSE METER 129 mg/dL 70-110 H : TESTED A T [facility] 6720 (BEAKER) (test code [facility], = 1538) 94188: Economic Manager/Techni juan antonio ID = [id number] for TSEG GAI, TSIGHEREDA HEMOGLOBIN AND [id number] 09:35:00 Test Item Value Reference Range Interpretation Comments HEMOGLOBIN (BEAKER) (test code = 8.9 GM/DL 11.2-15.7 L 410) HEMATOCRIT (BEAKER) (test code = 29.1 % 34.1-44.9 L 411) Economic Manager ID - [id number]-GLUCOSE [id number] 08:43:00 Test Item Value Reference Range Interpretation Comments POC-GLUCOSE METER 96 mg/dL 70-110 : TESTED A T [facility] 6720 (BEAKER) (test code [facility], = 1538) 27983: Economic Manager/Techni juan antonio ID = [id number] for TSEG GAI, TSIGHEREDA CBC W/PLT COUNT & AUTO [id number] 07:28:00 Test Item Value Reference Range Interpretation Comments WHITE BLOOD CELL COUNT (BEAKER) 4.7 K/ L 3.5-10.5 (test code = 775) RED BLOOD CELL COUNT (BEAKER) 2.75 M/ L 3.93-5.22 L (test code = 761) HEMOGLOBIN (BEAKER) (test code = 8.1 GM/DL 11.2-15.7 L 410) HEMATOCRIT (BEAKER) (test code = 26.4 % 34.1-44.9 L 411) MEAN CORPUSCULAR VOLUME (BEAKER) 96.0 fL 79.4-94.8 H (test code = 753) MEAN CORPUSCULAR HEMOGLOBIN 29.5 pg 25.6-32.2 (BEAKER) (test code = 751) MEAN CORPUSCULAR HEMOGLOBIN CONC 30.7 GM/DL 32.2-35.5 L (BEAKER) (test code = 752) RED CELL DISTRIBUTION WIDTH 25.7 % 11.7-14.4 H (BEAKER) (test code = [...] (test code = 437) NEUTROPHILS ABSOLUTE COUNT 3.02 K/ L 1.56-6.13 (BEAKER) (test code = 670) LYMPHOCYTES ABSOLUTE COUNT 0.81 K/ L 1.18-3.74 L (BEAKER) (test code = 414) MONOCYTES ABSOLUTE COUNT (BEAKER) 0.56 K/ L 0.24-0.36 H (test code = 415) EOSINOPHILS ABSOLUTE COUNT 0.22 K/ L 0.04-0.36 (BEAKER) (test code = 416) BASOPHILS ABSOLUTE COUNT (BEAKER) 0.02 K/ L 0.01-0.08 (test code = 417) IMMATURE GRANULOCYTES-RELATIVE 0 % 0-1 PERCENT (BEAKER) (test code = 2801) COMPREHENSIVE METABOLIC [id number] 07:12:00 Test Item Value Reference Range Interpretation Comments TOTAL PROTEIN 5.1 gm/dL 6.0-8.3 L (BEAKER) (test code = 770) ALBUMIN (BEAKER) 2.0 g/dL 3.5-5.0 L (test code = 1145) ALKALINE PHOSPHATASE 95 U/L 40-150 (BEAKER) (test code = 346) BILIRUBIN TOTAL 2.5 mg/dL 0.2-1.2 H (BEAKER) (test code = 377) SODIUM (BEAKER) (test 142 meq/L 136-145 code = 381) POTASSIUM (BEAKER) 3.6 meq/L 3.5-5.1 (test code = 379) CHLORIDE (BEAKER) 103 meq/L 98-107 (test code = 382) CO2 (BEAKER) (test 33 meq/L 22-29 H code = 355) BLOOD UREA NITROGEN 19 mg/dL 7-21 (BEAKER) (test code = 354) CREATININE (BEAKER) 1.09 mg/dL 0.57-1.25 (test code = 358) GLUCOSE RANDOM 96 mg/dL 70-105 (BEAKER) (test code = 652) CALCIUM (BEAKER) 7.8 mg/dL 8.4-10.2 L (test code = 697) AST (SGOT) (BEAKER) 22 U/L 5-34 (test code = 353) ALT (SGPT) (BEAKER) 28 U/L 6-55 (test code = 347) EGFR (BEAKER) (test 50 mL/min/1.73 ESTIMA RABIA GFR IS code = 1092) sq m NOT ACCURATE CREATININE CLEARANCE IN PREDICTING GLOMERULAR FILTRATION RATE . ESTIMATED GFR I S NOT APPLICABLE FOR DIALYSIS PATIEN TS. Economic Manager ID - MURALI LSpecimen slightly [id number] 07:09:00 Test Item Value Reference Range Interpretation Comments MAGNESIUM (BEAKER) (test code = 1.7 mg/dL 1.6-2.6 627) Economic Manager ID - MURALI [id number] 07:09:00 Test Item Value Reference Range Interpretation Comments PHOSPHORUS (BEAKER) (test code = 2.5 mg/dL 2.3-4.7 604) Economic Manager ID - MURALI LPROTHROMBIN TIME/[id number] 06:59:00 Test Item Value Reference Range Interpretation Comments PROTIME (BEAKER) 19.8 seconds 11.9-14.2 H (test code = 759) INR (BEAKER) (test 1.73 See_Comment [Automat ed message] code = 370) The system [employer] generated this result transmitted ref erence range: <=5.90. The reference range was not used to int erpret this result as normal/abnormal . Effective 03/14/2019: PT Reference Range ChangeNew: 11.9-14.2 Previous: 11.7- 14.7RECOMMENDED COUMADIN/WARFARIN INR THERAPY RANGESSTANDARD DOSE: 2.0-3.0 Includes: PROPHYLAXIS for venous thrombosis, systemic embolization; TREATMENT for venous thrombosis and/or pulmonary embolus.HIGH RISK: Target INR is2.5-3.5 for patients wiht mechanical heart valves.[id number] 06:59:00 Test Item Value Reference Range Interpretation Comments PARTIAL THROMBOPLASTIN TIME 47.3 seconds 22.5-36.0 H (BEAKER) (test code = 760) CALCIUM, [id number] 06:46:00 Test Item Value Reference Range Interpretation Comments CALCIUM IONIZED (BEAKER) (test 1.09 mmol/L 1.12-1.27 L code = 698) PH, BLOOD (BEAKER) (test code = 7.40 1810) POCT-GLUCOSE [id number] 05:56:00 Test Item Value Reference Range Interpretation Comments POC-GLUCOSE METER 93 mg/dL 70-110 : TESTED A T [facility] 6720 (BEAKER) (test code = [facility], 1538) [address]: Economic Manager/Techni juan antonio ID = [id number] for YONI PUGH POCT-GLUCOSE [id number] 17:37:00 Test Item Value Reference Range Interpretation Comments POC-GLUCOSE METER 143 mg/dL 70-110 H : TESTED A T [facility] 6720 (BEAKER) (test code = [facility], 1538) 32493: Economic Manager/Techni juan antonio ID = [id number] for An Katelynn spann HEMOGLOBIN AND [id number] 16:53:00 Test Item Value Reference Range Interpretation Comments HEMOGLOBIN (BEAKER) (test code = 6.4 GM/DL 11.2-15.7 L 410) HEMATOCRIT (BEAKER) (test code = 21.4 % 34.1-44.9 L 411) Economic Manager ID - [id number] W/PLT COUNT & AUTO [id number] 13:07:00 Test Item Value Reference Range Interpretation Comments WHITE BLOOD CELL COUNT 5.1 K/ L 3.5-10.5 (BEAKER) (test code = 775) RED BLOOD CELL COUNT 2.43 M/ L 3.93-5.22 L (BEAKER) (test code = 761) HEMOGLOBIN (BEAKER) 7.0 GM/DL 11.2-15.7 L (test code = 410) HEMATOCRIT (BEAKER) 23.9 % 34.1-44.9 L (test code = 411) MEAN CORPUSCULAR VOLUME 98.4 fL 79.4-94.8 H (BEAKER) (test code = 753) MEAN CORPUSCULAR 28.8 pg 25.6-32.2 HEMOGLOBIN (BEAKER) (test code = 751) MEAN CORPUSCULAR 29.3 GM/DL 32.2-35.5 L HEMOGLOBIN CONC (BEAKER) (test code = 752) RED CELL DISTRIBUTION Unable to report due WIDTH (BEAKER) (test to [facility] RBC code = 412) population distribution. PLATELET COUNT (BEAKER) 56 K/CU MM 150-450 L (test code = 756) MEAN PLATELET VOLUME 10.3 fL 9.4-12.3 (BEAKER) (test code = 754) NUCLEATED RED BLOOD 0 /100 WBC 0-0 CELLS (BEAKER) (test code = 413) (CELLAVISION MANUAL DIFF)2020-12-11 13:07:00 Test Item Value Reference Range Interpretation Comments NEUTROPHILS - REL 93 % (CELLAVISION)(BEAKER) (test code = 2816) MONOCYTES - REL 1 % (CELLAVISION)(BEAKER) (test code = 2818) EOSINOPHILS - REL 5 % (CELLAVISION)(BEAKER) (test code = 2819) BASOPHILS - REL 1 % (CELLAVISION)(BEAKER) (test code = 2820) NEUTROPHILS - ABS 4.74 K/ul 1.56-6.13 (CELLAVISION)(BEAKER) (test code = 2830) MONOCYTES - ABS 0.05 K/uL 0.24-0.36 L (CELLAVISION)(BEAKER) (test code = 2832) EOSINOPHILS - ABS 0.26 K/uL 0.04-0.36 (CELLAVISION)(BEAKER) (test code = 2834) BASOPHILS - ABS 0.05 K/uL 0.01-0.08 (CELLAVISION)(BEAKER) (test code = 2835) TOTAL COUNTED (BEAKER) (test code 100 = 1351) WBC MORPHOLOGY (BEAKER) (test Normal code = 487) LARGE PLT(BEAKER) (test code = Present 2156) POLYCHROMATOPHILLIC RBCS(BEAKER) 3+ many (test code = 478) HYPOCHROMIA (BEAKER) (test code = 2+ moderate 963) ANISOCYTOSIS (BEAKER) (test code 1+ few = 961) MACROCYTES (BEAKER) (test code = 1+ few 964) POIKILOCYTES (BEAKER) (test code 2+ moderate = 966) SPHEROCYTES (BEAKER) (test code = 1+ few 768) ELLIPTOCYTES (BEAKER) (test code 1+ few = 962) OVALOCYTES (BEAKER) (test code = 1+ few 477) TEAR DROP CELLS (BEAKER) (test 1+ few code = 481) ARTIFACT (CELLAVISION)(BEAKER) Present (test code = 3432) PLATELET CONCENTRATION Decreased (CELLAVISION)(BEAKER) (test code = 3438) Economic Manager ID - Maday Lazar comments: Slide comments:POCT-GLUCOSE METER 2020-12-11 12:23:00 Test Item Value Reference Range Interpretation Comments POC-GLUCOSE METER 159 mg/dL 70-110 H : TESTED [place] T [facility] 6720 (BEAKER) (test code = [place], 1538) [address]: Economic Manager/Techni juan antonio ID = [id number] for Katelynn Dempsey [id number] 07:14:00 Test Item Value Reference Range Interpretation Comments MAGNESIUM (BEAKER) (test code = 2.0 mg/dL 1.6-2.6 627) Economic Manager ID - MURALI [id number] 07:14:00 Test Item Value Reference Range Interpretation Comments PHOSPHORUS (BEAKER) (test code = 2.7 mg/dL 2.3-4.7 604) Economic Manager ID - MURALI LCOMPREHENSIVE METABOLIC [id number] 07:14:00 Test Item Value Reference Range Interpretation Comments TOTAL PROTEIN 5.4 gm/dL 6.0-8.3 L (BEAKER) (test code = 770) ALBUMIN (BEAKER) 2.2 g/dL 3.5-5.0 L (test code = 1145) ALKALINE PHOSPHATASE 94 U/L 40-150 (BEAKER) (test code = 346) BILIRUBIN TOTAL 3.6 mg/dL 0.2-1.2 H (BEAKER) (test code = 377) SODIUM (BEAKER) (test 144 meq/L 136-145 code = 381) POTASSIUM (BEAKER) 4.2 meq/L 3.5-5.1 (test code = 379) CHLORIDE (BEAKER) 103 meq/L 98-107 (test code = 382) CO2 (BEAKER) (test 33 meq/L 22-29 H code = 355) BLOOD UREA NITROGEN 26 mg/dL 7-21 H (BEAKER) (test code = 354) CREATININE (BEAKER) 1.28 mg/dL 0.57-1.25 H (test code = 358) GLUCOSE RANDOM 111 mg/dL 70-105 H (BEAKER) (test code = 652) CALCIUM (BEAKER) 8.1 mg/dL 8.4-10.2 L (test code = 697) AST (SGOT) (BEAKER) 24 U/L 5-34 (test code = 353) ALT (SGPT) (BEAKER) 36 U/L 6-55 (test code = 347) EGFR (BEAKER) (test 41 mL/min/1.73 ESTIMA RABIA GFR IS code = 1092) sq m NOT ACCURATE CREATININE CLEARANCE IN PREDICTING GLOMERULAR FILTRATION RATE . ESTIMATED GFR I S NOT APPLICABLE FOR DIALYSIS PATIEN TS. Economic Manager ID - MURALI LSpecimen slightly ictericB-TYPE NATRIURETIC FACTOR (BNP) 2020-12-11 07:11:00 Test Item Value Reference Range Interpretation Comments B-TYPE NATRIURETIC PEPTIDE (BEAKER) 192 pg/mL 0-100 H (test code = 700) Economic Manager ID - MURALI LCALCIUM, [id number] 06:57:00 Test Item Value Reference Range Interpretation Comments CALCIUM IONIZED (BEAKER) (test 1.08 mmol/L 1.12-1.27 L code = 698) PH, BLOOD (BEAKER) (test code = 7.42 1810) PROTHROMBIN [id number] 06:53:00 Test Item Value Reference Range Interpretation Comments PROTIME (HAO) 19.7 seconds 11.9-14.2 H (test code = 759) INR (HAO) (test 1.72 See_Comment [Automat ed message] code = 370) The system [employer] generated this result transmitted ref erence range: <=5.90. The reference range was not used to int erpret this result as normal/abnormal . Effective 03/14/2019: PT Reference Range ChangeNew: 11.9-14.2 Previous: 11.7- 14.7RECOMMENDED COUMADIN/WARFARIN INR THERAPY RANGESSTANDARD DOSE: 2.0-3.0 Includes: PROPHYLAXIS for venous thrombosis, systemic embolization; TREATMENT for venous thrombosis and/or pulmonary embolus.HIGH RISK: Target INR is2.5-3.5 for patients wiht mechanical heart valves.[id number] 06:53:00 Test Item Value Reference Range Interpretation Comments PARTIAL THROMBOPLASTIN TIME 43.2 seconds 22.5-36.0 H (HAO) (test code = 760) POCT-GLUCOSE [id number] 06:26:00 Test Item Value Reference Range Interpretation Comments POC-GLUCOSE METER 105 mg/dL 70-110 : TESTED A T [facility] 6720 (HAO) (test code = [place], 1538) [address]: Economic Manager/Techni juan antonio ID = [id number] for RAUL CARBONE, ALVINA RAD, CHEST, 1 VIEW, NON [id number] 03:58:00DR HILTONLAKYMeferring: Dr. Eric Morel for exam:->edemaShould this be performed at the bedside?->Yes [facility] 1950 Sex: FFINAL REPORT RAD, CHEST, 1 VIEW, NON DEPT INDICATION: edema COM PARISON: Exam from eight hours prior FINDINGS: Portable frontal view of the chest. IMPRESSION: Support Lines: None Lungs and pleura: Hypoinflated lungs without significant change in bilateral patchylung opacities. No sizable effusion. No pneumothorax.Heart and mediastinum: Stable contours.Additional findings: None. Signed: Jersey Galicia MDReport Verified Date/Time: 12/11/2020 03:58:26 U/S, ENDOVAGINAL (EV)2020-12-11 03:56:00DR JALALReferring: Dr. Eric Morel for exam:->Vaginal bleeding [facility] : 1950 Sex: FFINAL REPORT U/S, ENDOVAGINAL (EV) CLINICAL INDICATION: Vaginal bleeding COMPARISON: None TECHNIQUE: Pelvic ultrasound was performed transvaginally. FINDINGS: The uterus measures approximately 9.2 x 5.4 x 5 cm. There is nonspecific heterogeneity of the myometrium. There is no myometrial mass. The endometrial echocomplex is heterogeneous measuring 23 mm incaliber without vascular flow. The cervix is long and closed. The right ovary was not visualized dueto obscuration by bowel gas. The left ovary measures 2.7 x 1.5 x 2.1 cm and demonstrates normal vascular flow on color and spectral Doppler ultrasound. There is moderate free fluid in the pelvis. Thereis a Swift catheter balloon in the urinary bladder. IMPRESSION:Thickened and heterogeneous endometrium. Differential diagnosis includes endometrial carcinoma, endometrial polyp or hyperplasia. POWERHOUSE ENGINEER evaluation is recommended.Nonvisualization of the right ovary.Moderate pelvic free fluid. Signed: Amy Villavicencio Verified Date/Time: 12/11/2020 03:56:10 U/S, ABDOMINAL, [id number] 03:13:00DR JAMES Referring: Dr. Eric Neal Labs to be ordered:->Cell Count Labs to be ordered:->Body Fluid Culture (w/Gram Stain, C\\T\\S) Reason for exam:- >ascites r/u SBP [facility] : 1950 Sex: FFINAL REPORT TECHNIQUE: Grayscale ultrasound of the abdomen. IN DICATION: ascites r/u SBP. COMPARISON: None. IMPRESSION: No ascites on sonographic survey of all four quadrants of the abdomen. Signed: Jersey Galicia Verified Date/Time: 12/11/2020 03:13:18 POCT-GLUCOSE [id number] 00:14:00 Test Item Value Reference Range Interpretation Comments POC-GLUCOSE METER 125 mg/dL 70-110 H : TESTED A T [facility] 6720 (HAO) (test code = [place], 1538) [address]: Economic Manager/Techni juan antonio ID = [id number] for ALVINA HUANG SARS-COV2/RT-PCR ([facility])2020-12-10 22:11:00 Test Item Value Reference Range Interpretation Comments SARS-COV2/RT-PCR (test Negative Not Detected, Negative, code = 0801433) See external report for linked test SARS-COV-2 PERFORMING LAB [facility] DENITA (test code = 2795252) Negative result for this test determines that [...] 564(g) of the Act.Fact Sheet for Healthcare Providers:https://www.TopChalks.OneSchool/sites/default/files/product/documents/Fact_Shee g_MC_Qzvfurtfs_Wpkn_DKIE-RuD-0.pdfFact Sheet for Healthcare Patients:https://www.[employer]/sites/default/files/product/ documents/Pfnd_Arwja_Azikirzm_Qdze_CCML-LiP-9.pdfPerforming Laboratory:[facility], [place] [address]MUKIOHHDDI AND [id number] 20:58:00 Test Item Value Reference Range Interpretation Comments HEMOGLOBIN (BEAKER) (test code = 7.5 GM/DL 11.2-15.7 L 410) HEMATOCRIT (BEAKER) (test code = 24.4 % 34.1-44.9 L 411) Economic Manager ID - [id number], CHEST, 1 VIEW, NON [id number] 13:15:00DR JALALReferring: Dr. Eric Morel for exam:->encephalopathy r/o infectionShould this be performed at the bedside?->Yes [facility] : 1950 Sex: FFINAL REPORT INDICATION: encephalopathy r/o infection COMPARISON: None TECHNIQUE: Single frontal view of the chest. FINDINGS: Lungs and pleura: Mild basilar interstitial thickening and small bilateral effusions. Superimposed infection may be excluded clinically. No effusion.Heart and mediastinum: Normal heart size. Unremarkable mediastinal contours.Osseous structures: No acute abnormality.Other: None. Signed: Afshan Chaudhry Verified Date/Time: 12/10/2020 13:15:33 Reading Location: [facility] Radiology Reading Room -GLUCOSE [id number] 12:25:00 Test Item Value Reference Range Interpretation Comments POC-GLUCOSE METER 128 mg/dL 70-110 H : TESTED A T [facility] 6720 (BEAKER) (test code = [place], 1538) [address]: Economic Manager/Techni juan antonio ID = [id number] for SIRIA TANG [id number] 12:11:00 Test Item Value Reference Range Interpretation Comments AMMONIA (BEAKER) (test code = 348) 72 mol/L 18-72 Economic Manager ID - MURALI LBASIC METABOLIC [id number] 07:18:00 Test Item Value Reference Range Interpretation Comments SODIUM (BEAKER) 141 meq/L 136-145 (test code = 381) POTASSIUM (BEAKER) 4.5 meq/L 3.5-5.1 (test code = 379) CHLORIDE (BEAKER) 101 meq/L 98-107 (test code = 382) CO2 (BEAKER) (test 32 meq/L 22-29 H code = 355) BLOOD UREA NITROGEN 28 mg/dL 7-21 H (BEAKER) (test code = 354) CREATININE (BEAKER) 1.27 mg/dL 0.57-1.25 H (test code = 358) GLUCOSE RANDOM 112 mg/dL 70-105 H (BEAKER) (test code = 652) CALCIUM (BEAKER) 8.1 mg/dL 8.4-10.2 L (test code = 697) EGFR (BEAKER) (test 42 mL/min/1.73 ESTIMA RABIA GFR IS code = 1092) sq m NOT ACCURATE CREATININE CLEARANCE IN PREDICTING GLOMERULAR FILTRATION RATE . ESTIMATED GFR I S NOT APPLICABLE FOR DIALYSIS PATIEN TS. Economic Manager ID - PIAYA LSpecimen slightly ictericHEPATIC FUNCTION [id number] 07:18:00 Test Item Value Reference Range Interpretation Comments TOTAL PROTEIN (BEAKER) (test code = 6.1 gm/dL 6.0-8.3 770) ALBUMIN (BEAKER) (test code = 1145) 2.3 g/dL 3.5-5.0 L BILIRUBIN TOTAL (BEAKER) (test code 3.0 mg/dL 0.2-1.2 H = 377) BILIRUBIN DIRECT (BEAKER) (test 1.5 mg/dL 0.1-0.5 H code = 706) ALKALINE PHOSPHATASE (BEAKER) (test 119 U/L 40-150 code = 346) AST (SGOT) (BEAKER) (test code = 28 U/L 5-34 353) ALT (SGPT) (BEAKER) (test code = 48 U/L 6-55 347) Economic Manager ID - MURALI LSpecimealex slightly ictericCBC W/PLT COUNT & AUTO [id number] 07:06:00 Test Item Value Reference Range Interpretation Comments WHITE BLOOD CELL COUNT (BEAKER) 5.1 K/ L 3.5-10.5 (test code = 775) RED BLOOD CELL COUNT (BEAKER) 3.15 M/ L 3.93-5.22 L (test code = 761) HEMOGLOBIN (BEAKER) (test code = 8.8 GM/DL 11.2-15.7 L 410) HEMATOCRIT (BEAKER) (test code = 30.2 % 34.1-44.9 L 411) MEAN CORPUSCULAR VOLUME (BEAKER) 95.9 fL 79.4-94.8 H (test code = 753) MEAN CORPUSCULAR HEMOGLOBIN 27.9 pg 25.6-32.2 (BEAKER) (test code = 751) MEAN CORPUSCULAR HEMOGLOBIN CONC 29.1 GM/DL 32.2-35.5 L (BEAKER) (test code = 752) RED CELL DISTRIBUTION WIDTH 27.6 % 11.7-14.4 H (BEAKER) (test code = 412) PLATELET COUNT (BEAKER) (test code 36 K/CU MM 150-450 L = 756) MEAN PLATELET VOLUME (BEAKER) 11.6 fL 9.4-12.3 (test code = 754) NUCLEATED RED BLOOD CELLS (BEAKER) 0 /100 WBC 0-0 (test code = 413) NEUTROPHILS RELATIVE PERCENT 78 % (BEAKER) (test code = 429) LYMPHOCYTES RELATIVE PERCENT 11 % (BEAKER) (test code = 430) MONOCYTES RELATIVE PERCENT 8 % (BEAKER) (test code = 431) EOSINOPHILS RELATIVE PERCENT 3 % (BEAKER) (test code = 432) BASOPHILS RELATIVE PERCENT 1 % (BEAKER) (test code = 437) NEUTROPHILS ABSOLUTE COUNT 3.93 K/ L 1.56-6.13 (BEAKER) (test code = 670) LYMPHOCYTES ABSOLUTE COUNT 0.55 K/ L 1.18-3.74 L (BEAKER) (test code = 414) MONOCYTES ABSOLUTE COUNT (BEAKER) 0.39 K/ L 0.24-0.36 H (test code = 415) EOSINOPHILS ABSOLUTE COUNT 0.14 K/ L 0.04-0.36 (BEAKER) (test code = 416) BASOPHILS ABSOLUTE COUNT (BEAKER) 0.03 K/ L 0.01-0.08 (test code = 417) IMMATURE GRANULOCYTES-RELATIVE 0 % 0-1 PERCENT (BEAKER) (test code = 2801) PROTHROMBIN [id number] 07:00:00 Test Item Value Reference Range Interpretation Comments PROTIME (BEAKER) 18.1 seconds 11.9-14.2 H (test code = 759) INR (BEAKER) (test 1.55 See_Comment [Automat ed message] code = 370) The system [employer] generated this result transmitted ref erence range: <=5.90. The reference range was not used to int erpret this result as normal/abnormal . Effective 03/14/2019: PT Reference Range ChangeNew: 11.9-14.2 Previous: 11.7- 14.7RECOMMENDED COUMADIN/WARFARIN INR THERAPY RANGESSTANDARD DOSE: 2.0-3.0 Includes: PROPHYLAXIS for venous thrombosis, systemic embolization; TREATMENT for venous thrombosis and/or pulmonary embolus.HIGH RISK: Target INR is2.5-3.5 for patients wiht mechanical heart valves.URINALYSIS W/ REFLEX URINE CULTURE 2020-12-10 06:11:00 Test Item Value Reference Range Interpretation Comments COLOR (BEAKER) (test code = 470) Yellow CLARITY (BEAKER) (test code = 469) Clear SPECIFIC GRAVITY UA (BEAKER) (test 1.014 1.001-1.035 code = 468) PH UA (BEAKER) (test code = 467) 5.5 5.0-8.0 PROTEIN UA (BEAKER) (test code = 20 mg/dL Negative A 464) GLUCOSE UA (BEAKER) (test code = Negative Negative 365) KETONES UA (BEAKER) (test code = Negative Negative 371) BILIRUBIN UA (BEAKER) (test code = Negative Negative 462) BLOOD UA (BEAKER) (test code = Small Negative A 461) NITRITE UA (BEAKER) (test code = Negative Negative 465) LEUKOCYTE ESTERASE UA (BEAKER) Moderate Negative A (test code = 466) UROBILINOGEN UA (BEAKER) (test 0.2 mg/dL 0.2-1.0 code = 463) RBC UA (BEAKER) (test code = 519) 5 /HPF WBC UA (BEAKER) (test code = 520) 13 /HPF BACTERIA (BEAKER) (test code = Occasional 517) MUCUS (BEAKER) (test code = 1574) Rare HYALINE CASTS (BEAKER) (test code 11 /LPF = 514) SOURCE(BEAKER) (test code = 2795) Economic Manager ID - [auto]Economic Manager ID - techCOMPREHENSIVE METABOLIC [id number] 07:02:00 Test Item Value Reference Range Interpretation [...] 347) EGFR (BEAKER) (test 45 mL/min/1.73 ESTIMA RABIA GFR IS code = 1092) sq m NOT ACCURATE CREATININE CLEARANCE IN PREDICTING GLOMERULAR FILTRATION RATE . ESTIMATED GFR I S NOT APPLICABLE FOR DIALYSIS PATIEN TS. Economic Manager ID - ADMINSpecimen slightly [id number] 07:00:00 Test Item Value Reference Range Interpretation Comments MAGNESIUM (BEAKER) (test code = 2.3 mg/dL 1.6-2.6 627) Economic Manager ID - [id number] 07:00:00 Test Item Value Reference Range Interpretation Comments PHOSPHORUS (BEAKER) (test code = 2.8 mg/dL 2.3-4.7 604) Economic Manager ID - ADMINHEPATIC FUNCTION [id number] 07:00:00 Test Item Value Reference Range Interpretation [...] code = 56 U/L 6-55 H 347) Economic Manager ID - ADMINSpecimen slightly ictericCREATINE KINASE (CK)2020-12-08 07:00:00 Test Item Value Reference Range Interpretation Comments CREATINE KINASE TOTAL (BEAKER) (test 35 U/L 29-200 code = 380) Economic Manager ID - ADMINCBC W/PLT COUNT & AUTO [id number] 06:58:00 Test Item Value Reference Range Interpretation [...] PERCENT (BEAKER) (test code = 2801) CALCIUM, [id number] 06:49:00 Test Item Value Reference Range Interpretation Comments CALCIUM IONIZED (BEAKER) (test 1.09 mmol/L 1.12-1.27 L code = 698) PH, BLOOD (BEAKER) (test code = 7.36 1810) PROTHROMBIN TIME/[id number] 06:48:00 Test Item Value Reference Range Interpretation Comments PROTIME (HAO) 19.0 seconds 11.9-14.2 H (test code = 759) INR (BEAKER) (test 1.66 See_Comment [Automat ed message] code = 370) The system [employer] generated this result transmitted ref erence range: <=5.90. The reference range was not used to int erpret this result as normal/abnormal . Effective 03/14/2019: PT Reference Range ChangeNew: 11.9-14.2 Previous: 11.7- 14.7RECOMMENDED COUMADIN/WARFARIN INR THERAPY RANGESSTANDARD DOSE: 2.0-3.0 Includes: PROPHYLAXIS for venous thrombosis, systemic embolization; TREATMENT for venous thrombosis and/or pulmonary embolus.HIGH RISK: Target INR is2.5-3.5 for patients wiht mechanical heart valves.U/S, RENAL, [id number] 05:26:00DR JALALReferring: Dr. Eric Morel for exam:->jose manuel [facility] : 1950 Sex: FFINAL [...] Michael Tabares MDReport Verified Date/Time: 12/08/2020 05:26:28 CREATININE, RANDOM [id number] 21:05:00 Test Item Value Reference Range Interpretation Comments CREATININE URINE (BEAKER) (test 130.0 mg/dL code = 375) Reference Range: No NormalsOperator ID - BSPROTEIN, RANDOM [id number] 21:05:00 Test Item Value Reference Range Interpretation Comments PROTEIN, URINE (BEAKER) (test code = 32 mg/dL 0-14 H 1569) Economic Manager ID - BSSODIUM, RANDOM [id number] 21:05:00 Test Item Value Reference Range Interpretation Comments SODIUM URINE (BEAKER) (test code = 26 meq/L 243) Reference Range: No NormalsOperator ID - BSURINALYSIS W/ [id number] 20:44:00 Test Item Value Reference Range Interpretation [...] = 516) SOURCE(BEAKER) (test code = 2795) Economic Manager ID - [auto]Economic Manager ID - techCOMPREHENSIVE METABOLIC [id number] 05:50:00 Test Item Value Reference Range Interpretation [...] 347) EGFR (BEAKER) (test 37 mL/min/1.73 ESTIMA RABIA GFR IS code = 1092) sq m NOT ACCURATE CREATININE CLEARANCE IN PREDICTING GLOMERULAR FILTRATION RATE . ESTIMATED GFR I S NOT APPLICABLE FOR DIALYSIS PATIEN TS. Economic Manager ID - EDASISpecimen slightly [id number] 05:49:00 Test Item Value Reference Range Interpretation Comments MAGNESIUM (BEAKER) (test code = 2.4 mg/dL 1.6-2.6 627) Economic Manager ID - [id number] 05:49:00 Test Item Value Reference Range Interpretation Comments PHOSPHORUS (BEAKER) (test code = 3.3 mg/dL 2.3-4.7 604) Economic Manager ID - EDASIHEPATIC FUNCTION [id number] 05:49:00 Test Item Value Reference Range Interpretation [...] code = 69 U/L 6-55 H 347) Economic Manager ID - EDASISpecimen slightly ictericPROTHROMBIN TIME/[id number] 05:41:00 Test Item Value Reference Range Interpretation Comments PROTIME (BEAKER) 18.3 seconds 11.9-14.2 H (test code = 759) INR (BEAKER) (test 1.58 See_Comment [Automat ed message] code = 370) The system [employer] generated this result transmitted ref erence range: <=5.90. The reference range was not used to int erpret this result as normal/abnormal . Effective 03/14/2019: PT Reference Range ChangeNew: 11.9-14.2 Previous: 11.7- 14.7RECOMMENDED COUMADIN/WARFARIN INR THERAPY RANGESSTANDARD DOSE: 2.0-3.0 Includes: PROPHYLAXIS for venous thrombosis, systemic embolization; TREATMENT for venous thrombosis and/or pulmonary embolus.HIGH RISK: Target INR is2.5-3.5 for patients wiht mechanical heart valves.CALCIUM, [id number] 05:28:00 Test Item Value Reference Range Interpretation Comments CALCIUM IONIZED (BEAKER) (test 1.10 mmol/L 1.12-1.27 L code = 698) PH, BLOOD (BEAKER) (test code = 7.34 1810) CBC W/PLT COUNT & AUTO [id number] 05:27:00 Test Item Value Reference Range Interpretation [...] (BEAKER) (test code = 2801) COMPREHENSIVE METABOLIC [id number] 06:09:00 Test Item Value Reference Range Interpretation [...] 347) EGFR (BEAKER) (test 42 mL/min/1.73 ESTIMA RABIA GFR IS code = 1092) sq m NOT ACCURATE CREATININE CLEARANCE IN PREDICTING GLOMERULAR FILTRATION RATE . ESTIMATED GFR I S NOT APPLICABLE FOR DIALYSIS PATIEN TS. Economic Manager ID - ALIZA MSpecimen slightly ictericCBC W/PLT COUNT & AUTO [id number] 05:56:00 Test Item Value Reference Range Interpretation [...] GRANULOCYTES-RELATIVE PERCENT (BEAKER) (test code = 2801) [id number] 05:53:00 Test Item Value Reference Range Interpretation Comments MAGNESIUM (BEAKER) (test code = 2.2 mg/dL 1.6-2.6 627) Economic Manager ID - ALIZA MHEPATIC FUNCTION [id number] 05:53:00 Test Item Value Reference Range Interpretation [...] code = 84 U/L 6-55 H 347) Economic Manager ID - ALIZA MSpecimen slightly [id number] 06:10:00 Test Item Value Reference Range Interpretation Comments MAGNESIUM (BEAKER) (test code = 2.0 mg/dL 1.6-2.6 627) Economic Manager ID - [id number] 06:10:00 Test Item Value Reference Range Interpretation Comments PHOSPHORUS (BEAKER) (test code = 2.5 mg/dL 2.3-4.7 604) Economic Manager ID - EDASICOMPREHENSIVE METABOLIC [id number] 06:10:00 Test Item Value Reference Range Interpretation [...] 347) EGFR (BEAKER) (test 42 mL/min/1.73 ESTIMA RABIA GFR IS code = 1092) sq m NOT ACCURATE CREATININE CLEARANCE IN PREDICTING GLOMERULAR FILTRATION RATE . ESTIMATED GFR I S NOT APPLICABLE FOR DIALYSIS PATIEN TS. Economic Manager ID - EDASISpecimen moderately ictericHEPATIC FUNCTION [id number] 06:10:00 Test Item Value Reference Range Interpretation [...] code = 95 U/L 6-55 H 347) Economic Manager ID - EDASISpecimen moderately ictericB-TYPE NATRIURETIC FACTOR (BNP) 2020-12-05 05:49:00 Test Item Value Reference Range Interpretation Comments B-TYPE NATRIURETIC PEPTIDE (BEAKER) 231 pg/mL 0-100 H (test code = 700) Economic Manager ID - EDASIPROTHROMBIN TIME/[id number] 05:27:00 Test Item Value Reference Range Interpretation Comments PROTIME (BEAKER) 20.0 seconds 11.9-14.2 H (test code = 759) INR (BEAKER) (test 1.77 See_Comment [Automat ed message] code = 370) The system [employer] generated this result transmitted ref erence range: [...] mechanical heart valves.CBC W/PLT COUNT & AUTO [id number] 05:19:00 Test Item Value Reference Range Interpretation [...] PERCENT (BEAKER) (test code = 2801) CALCIUM, [id number] 05:19:00 Test Item Value Reference Range Interpretation Comments CALCIUM IONIZED (BEAKER) (test 1.11 mmol/L 1.12-1.27 L code = 698) PH, BLOOD (BEAKER) (test code = 7.41 1810) BILIRUBIN, [id number] 10:34:00 Test Item Value Reference Range Interpretation Comments BILIRUBIN DIRECT (BEAKER) (test 2.3 mg/dL 0.1-0.5 H code = 706) Economic Manager ID - AAHAMIDSARS-COV2/RT-PCR ([facility])2020-12-04 07:25:00 Test Item Value Reference Range Interpretation Comments SARS-COV2/RT-PCR (test Negative Not Detected, Negative, code = 0314692) See external report for linked test SARS-COV-2 PERFORMING LAB [facility] DENITA (test code = 0850332) Negative result for this test determines that [...] 564(g) of the Act.Fact Sheet for Healthcare Providers:https://www.[employer].One[employer]/sites/default/files/product/documents/Fact_Shee n_BP_Qlslzeynp_Eojl_CAUI-GeQ-0.pdfFact Sheet for Healthcare Patients:https://www.[employer]/sites/default/files/product/ documents/Qhpn_Ziene_Hfxtgddn_Ecgq_PPEM-NmV-5.pdfPerforming Laboratory:[facility], [place] [address]E-GOHF NATRIURETIC FACTOR (BNP)2020-12-04 05:48:00 Test Item Value Reference Range Interpretation Comments B-TYPE NATRIURETIC PEPTIDE (BEAKER) 365 pg/mL 0-100 H (test code = 700) Economic Manager ID - ALIZA [id number] 05:42:00 Test Item Value Reference Range Interpretation Comments MAGNESIUM (BEAKER) (test code = 2.1 mg/dL 1.6-2.6 627) Economic Manager ID - ALIZA [id number] 05:42:00 Test Item Value Reference Range Interpretation Comments PHOSPHORUS (BEAKER) (test code = 2.2 mg/dL 2.3-4.7 L 604) Economic Manager ID - ALIZA MCOMPREHENSIVE METABOLIC [id number] 05:42:00 Test Item Value Reference Range Interpretation [...] 347) EGFR (BEAKER) (test 61 mL/min/1.73 ESTIMA RABIA GFR IS code = 1092) sq m NOT ACCURATE CREATININE CLEARANCE IN PREDICTING GLOMERULAR FILTRATION RATE . ESTIMATED GFR I S NOT APPLICABLE FOR DIALYSIS PATIEN TS. Economic Manager ID - ALIZA MSpecimen moderately ictericCALCIUM, [id number] 05:18:00 Test Item Value Reference Range Interpretation Comments CALCIUM IONIZED (BEAKER) (test 1.11 mmol/L 1.12-1.27 L code = 698) PH, BLOOD (BEAKER) (test code = 7.38 1810) CBC W/PLT COUNT & AUTO [id number] 05:13:00 Test Item Value Reference Range Interpretation [...] 0-1 PERCENT (BEAKER) (test code = 2801) BLOOD [id number] 00:00:00 Test Item Value Reference Range Interpretation Comments CULTURE (BEAKER) (test No growth in 5 days code = 1095) BLOOD [id number] 00:00:00 Test Item Value Reference Range Interpretation Comments CULTURE (BEAKER) (test No growth in 5 days code = 1095) RAD, CHEST, 1 VIEW, NON [id number] 22:22:00DR JALALReferring: Dr. Eric Morel for exam:->edemaShould this be performed at the bedside?->Yes [facility] FR[facility] : 1950 Sex: FFINAL [...] Michael Tabares MDReport Verified Date/Time: 12/03/2020 22:22:17 COMPREHENSIVE METABOLIC [id number] 06:26:00 Test Item Value Reference Range Interpretation [...] 347) EGFR (BEAKER) (test 60 mL/min/1.73 ESTIMA RABIA GFR IS code = 1092) sq m NOT ACCURATE CREATININE CLEARANCE IN PREDICTING GLOMERULAR FILTRATION RATE . ESTIMATED GFR I S NOT APPLICABLE FOR DIALYSIS PATIEN TS. Economic Manager ID - ALIZA MSpecimen moderately [id number] 06:20:00 Test Item Value Reference Range Interpretation Comments MAGNESIUM (BEAKER) (test code = 2.3 mg/dL 1.6-2.6 627) Economic Manager ID - ALIZA MCBC W/PLT COUNT & AUTO [id number] 06:08:00 Test Item Value Reference Range Interpretation [...] (BEAKER) (test code = 2801) COMPREHENSIVE METABOLIC [id number] 06:20:00 Test Item Value Reference Range Interpretation [...] 347) EGFR (BEAKER) (test 59 mL/min/1.73 ESTIMA RABIA GFR IS code = 1092) sq m NOT ACCURATE CREATININE CLEARANCE IN PREDICTING GLOMERULAR FILTRATION RATE . ESTIMATED GFR I S NOT APPLICABLE FOR DIALYSIS PATIEN TS. Economic Manager ID - ALIZA MSpecimen slightly ictericCALCIUM, [id number] 05:40:00 Test Item Value Reference Range Interpretation Comments CALCIUM IONIZED (BEAKER) (test 1.14 mmol/L 1.12-1.27 code = 698) PH, BLOOD (BEAKER) (test code = 7.26 1810) [id number] 05:36:00 Test Item Value Reference Range Interpretation Comments MAGNESIUM (BEAKER) (test code = 2.5 mg/dL 1.6-2.6 627) Economic Manager ID - ALIZA [id number] 05:36:00 Test Item Value Reference Range Interpretation Comments PHOSPHORUS (BEAKER) (test code = 2.2 mg/dL 2.3-4.7 L 604) Economic Manager ID - ALIZA MBILIRUBIN, [id number] 05:36:00 Test Item Value Reference Range Interpretation Comments BILIRUBIN DIRECT (BEAKER) (test 1.8 mg/dL 0.1-0.5 H code = 706) Economic Manager ID - ALIZA MCREATINE KINASE (CK)2020-12-02 05:36:00 Test Item Value Reference Range Interpretation Comments CREATINE KINASE TOTAL (BEAKER) (test 385 U/L 29-200 H code = 380) Economic Manager ID Shakir ABRAMS MCBC W/PLT COUNT & AUTO [id number] 05:07:00 Test Item Value Reference Range Interpretation [...] (BEAKER) (test code = 2801) U/S, ABDOMINAL, [id number] 13:39:00DR JAMES Referring: Dr. Eric Neal Labs to be ordered:->Body Fluid Culture (w/Gram Stain, C\\T\\S) Labs to be ordered:- >Cell Count Reason for exam:->diagnostic. limit 2 L for therapeutic. [facility] DEMARDAVISSARAH DAVIDJHOAN VELIZ : 1950 Sex: FFINAL REPORT U/S, ABDOMINAL, LIMITED CLINICAL HISTORY: diagnostic. Limit 2 L for therapeutic. COMPARISON: Abdominal MRI 12/06/2020 TECHNIQUE: Real time transverse and longitudinal images of the abdominal quadrants were obtained. FINDINGS / IMPRESSION: Small volumeascites, mostly perihepatic, insufficient for paracentesis, no paracentesis performed. Signed: Kell Langston Verified Date/Time: 12/01/2020 13:39:28 Reading Location: [facility] B1 C013Y CT Body Reading Room CREATINE KINASE (CK)2020-12-01 11:58:00 Test Item Value Reference Range Interpretation Comments CREATINE KINASE TOTAL (BEAKER) (test 610 U/L 29-200 H code = 380) Economic Manager ID - ALIZA MCOMPREHENSIVE METABOLIC [id number] 05:36:00 Test Item Value Reference Range Interpretation [...] 347) EGFR (BEAKER) (test 56 mL/min/1.73 ESTIMA RABIA GFR IS code = 1092) sq m NOT ACCURATE CREATININE CLEARANCE IN PREDICTING GLOMERULAR FILTRATION RATE . ESTIMATED GFR I S NOT APPLICABLE FOR DIALYSIS PATIEN TS. Economic Manager ID - ALIZA MSpecimen slightly [id number] 05:33:00 Test Item Value Reference Range Interpretation Comments MAGNESIUM (BEAKER) (test code = 2.6 mg/dL 1.6-2.6 627) Economic Manager ID - ALIZA MPROTHROMBIN TIME/[id number] 05:32:00 Test Item Value Reference Range Interpretation Comments PROTIME (BEAKER) 19.5 seconds 11.9-14.2 H (test code = 759) INR (BEAKER) (test 1.70 See_Comment [Automat ed message] code = 370) The system [employer] generated this result transmitted ref erence range: [...] mechanical heart valves.CBC W/PLT COUNT & AUTO [id number] 05:11:00 Test Item Value Reference Range Interpretation [...] (BEAKER) (test code = 2801) COMPREHENSIVE METABOLIC [id number] 07:42:00 Test Item Value Reference Range Interpretation [...] hemolyzed EGFR (BEAKER) (test 54 mL/min/1.73 ESTIMA RABIA GFR IS code = 1092) sq m NOT ACCURATE CREATININE CLEARANCE IN PREDICTING GLOMERULAR FILTRATION RATE . ESTIMATED GFR I S NOT APPLICABLE FOR DIALYSIS PATIEN TS. Economic Manager ID - PIAYA LSpecimen slightly [id number] 07:16:00 Test Item Value Reference Range Interpretation Comments MAGNESIUM (BEAKER) 2.7 mg/dL 1.6-2.6 H Specimen slightly (test code = 627) hemolyzed Economic Manager ID - PIAYA LCBC W/PLT COUNT & AUTO [id number] 06:42:00 Test Item Value Reference Range Interpretation [...] PERCENT (BEAKER) (test code = 2801) PROTHROMBIN TIME/[id number] 06:15:00 Test Item Value Reference Range Interpretation Comments PROTIME (BEAKER) 20.0 seconds 11.9-14.2 H (test code = 759) INR (BEAKER) (test 1.75 See_Comment [Automat ed message] code = 370) The system [employer] generated this result transmitted ref erence range: [...] wiht mechanical heart valves.RAD, ABDOMEN/KUB, 1 VIEW [id number] 03:41:00DR JALALReferring: Dr. Eric Morel for exam:->constipationShould this be performed at the bedside?->Yes [facility] : 1950 Sex: FFINAL REPORT RAD, ABDOMEN/KUB, 1 VIEW AP CLINICAL HISTORY: cons tipation TECHNIQUE: RAD, ABDOMEN/KUB, 1 VIEW AP COMPARISON: None IMPRESSION: The bowel gas pattern is nonspecific/nonobstructive. Ggnpg-xc-iqkqxuoz volume fecal burden visualized. Supine imaging insensitive for exclusion of free air. Bilateral pulmonary airspace disease present. Signed: Michael Tabares MDReport Verified Date/Time: 11/30/2020 03:41:22 BASIC METABOLIC [id number] 01:17:00 Test Item Value Reference Range Interpretation [...] 697) EGFR (BEAKER) (test 48 mL/min/1.73 ESTIMA RABIA GFR IS code = 1092) sq m NOT ACCURATE CREATININE CLEARANCE IN PREDICTING GLOMERULAR FILTRATION RATE . ESTIMATED GFR I S NOT APPLICABLE FOR DIALYSIS PATIEN TS. Economic Manager ID - PIAYA LSpecimen slightly ictericCBC (HEMOGRAM ONLY)2020-11-29 23:40:00 Test Item Value Reference [...] /100 WBC 0-0 (test code = 413) POCT-GLUCOSE [id number] 20:49:00 Test Item Value Reference Range Interpretation Comments POC-GLUCOSE METER 130 mg/dL 70-110 H : TESTED A T BSC 6720 (BEAKER) (test code = EDI JETT [place], 1538) [address]: Economic Manager/Techni juan antonio ID = [id number] for SHERRY GHOSH RA COMPREHENSIVE METABOLIC [id number] 06:22:00 Test Item Value Reference Range Interpretation [...] 347) EGFR (BEAKER) (test 44 mL/min/1.73 ESTIMA RABIA GFR IS code = 1092) sq m NOT ACCURATE CREATININE CLEARANCE IN PREDICTING GLOMERULAR FILTRATION RATE . ESTIMATED GFR I S NOT APPLICABLE FOR DIALYSIS PATIEN TS. Economic Manager ID - ALIZA MSpecimen slightly [id number] 06:17:00 Test Item Value Reference Range Interpretation Comments MAGNESIUM (BEAKER) (test code = 2.7 mg/dL 1.6-2.6 H 627) Economic Manager ID - ALIZA MPROTHROMBIN TIME/[id number] 06:05:00 Test Item Value Reference Range Interpretation Comments PROTIME (BEAKER) 21.5 seconds 11.9-14.2 H (test code = 759) INR (BEAKER) (test 1.92 See_Comment [Automat ed message] code = 370) The system [employer] generated this result transmitted ref erence range: [...] mechanical heart valves.CBC W/PLT COUNT & AUTO [id number] 05:34:00 Test Item Value Reference Range Interpretation [...] PERCENT (BEAKER) (test code = 2801) CALCIUM, [id number] 06:38:00 Test Item Value Reference Range Interpretation Comments CALCIUM IONIZED (BEAKER) (test 1.01 mmol/L 1.12-1.27 L code = 698) PH, BLOOD (BEAKER) (test code = 7.38 1810) B-TYPE NATRIURETIC FACTOR (BNP)2020-11-28 05:27:00 Test Item Value Reference Range Interpretation Comments B-TYPE NATRIURETIC PEPTIDE (BEAKER) 465 pg/mL 0-100 H (test code = 700) Economic Manager ID - EDASICOMPREHENSIVE METABOLIC [id number] 05:25:00 Test Item Value Reference Range Interpretation [...] 347) EGFR (BEAKER) (test 41 mL/min/1.73 ESTIMA RABIA GFR IS code = 1092) sq m NOT ACCURATE CREATININE CLEARANCE IN PREDICTING GLOMERULAR FILTRATION RATE . ESTIMATED GFR I S NOT APPLICABLE FOR DIALYSIS PATIEN TS. Economic Manager ID - EDASISpecimen slightly [id number] 05:22:00 Test Item Value Reference Range Interpretation Comments MAGNESIUM (BEAKER) (test code = 2.5 mg/dL 1.6-2.6 627) Economic Manager ID - [id number] 05:22:00 Test Item Value Reference Range Interpretation Comments PHOSPHORUS (BEAKER) (test code = 2.6 mg/dL 2.3-4.7 604) Economic Manager ID - EDASICREATINE KINASE (CK)2020-11-28 05:22:00 Test Item Value Reference Range Interpretation Comments CREATINE KINASE TOTAL (BEAKER) (test 3438 U/L 29-200 H code = 380) Economic Manager ID - EDASICALCIUM, [id number] 05:07:00 Test Item Value Reference Range Interpretation Comments CALCIUM IONIZED (BEAKER) (test 1.04 mmol/L 1.12-1.27 L code = 698) PH, BLOOD (BEAKER) (test code = 7.39 1810) PROTHROMBIN TIME/[id number] 05:06:00 Test Item Value Reference Range Interpretation Comments PROTIME (BEAKER) 20.3 seconds 11.9-14.2 H (test code = 759) INR (BEAKER) (test 1.79 See_Comment [Automat ed message] code = 370) The system [employer] generated this result transmitted ref erence range: [...] mechanical heart valves.CBC W/PLT COUNT & AUTO [id number] 05:00:00 Test Item Value Reference Range Interpretation [...] (BEAKER) (test code = 2801) URINALYSIS W/ [id number] 21:23:00 Test Item Value Reference Range Interpretation [...] = 1585) Occasional SOURCE(BEAKER) (test code = 0625) Economic Manager ID - [auto]Economic Manager ID - techSODIUM, RANDOM [id number] 21:16:00 Test Item Value Reference Range Interpretation Comments SODIUM URINE (BEAKER) (test code = < meq/L 243) Reference Range: No NormalsOperator ID - BSCREATININE, RANDOM [id number] 21:13:00 Test Item Value Reference Range Interpretation Comments CREATININE URINE (BEAKER) (test 115.0 mg/dL code = 375) Reference Range: No NormalsOperator ID - BSPROTEIN, RANDOM [id number] 21:13:00 Test Item Value Reference Range Interpretation Comments PROTEIN, URINE (BEAKER) (test code = 74 mg/dL 0-14 H 1569) Economic Manager ID - BSUREA NITROGEN, RANDOM [id number] 21:13:00 Test Item Value Reference Range Interpretation [...] /100 WBC 0-0 (test code = 413) PERIPHERAL BLOOD SMEAR - PATHOLOGIST [id number] 13:22:00 Test Item Value Reference Range Interpretation Comments PERIPHERAL SMR REVIEW No circulating blasts. (BEAKER) (test code = No significantly 2640) increased schistocytes. [id number] Constantine Temitope, (BEAKER) (test code = M.D.(electronic 7185) signature) CREATINE KINASE (CK)2020-11-27 06:15:00 Test Item Value Reference Range Interpretation Comments CREATINE KINASE TOTAL (BEAKER) (test 4837 U/L 29-200 H code = 380) Economic Manager ID - SMOperator ID - SMALPHA FETOPROTEIN (AFP), TUMOR [id number] 06:07:00 Test Item Value Reference Range Interpretation Comments ALPHA-FETOPROTEIN (BEAKER) (test code < ng/mL <10.0 = 1094) Economic Manager ID - ALIZA MHEPATITIS B SURFACE [id number] 06:07:00 Test Item Value Reference Range Interpretation Comments HEPATITIS B SURFACE ANTIBODY < mIU/mL <8.0 (BEAKER) (test code = 647) Economic Manager ID - ALIZA MTROPONIN [id number] 05:59:00 Test Item Value Reference Range Interpretation [...] failure, acidosis, acute neurological disease, and persistent tachyarrhythmia.Economic Manager ID - SMCOMPREHENSIVE METABOLIC [id number] 05:50:00 Test Item Value Reference Range Interpretation [...] 347) EGFR (BEAKER) (test 38 mL/min/1.73 ESTIMA RABIA GFR IS code = 1092) sq m NOT ACCURATE CREATININE CLEARANCE IN PREDICTING GLOMERULAR FILTRATION RATE . ESTIMATED GFR I S NOT APPLICABLE FOR DIALYSIS PATIEN TS. Economic Manager ID - SMPROTHROMBIN TIME/[id number] 05:42:00 Test Item Value Reference Range Interpretation Comments PROTIME (BEAKER) 19.7 seconds 11.9-14.2 H (test code = 759) INR (BEAKER) (test 1.72 See_Comment [Automat ed message] code = 370) The system [employer] generated this result transmitted ref erence range: <=5.90. The reference range was not used to int erpret this result as normal/abnormal . Effective 03/14/2019: PT Reference Range ChangeNew: 11.9-14.2 Previous: 11.7- 14.7RECOMMENDED COUMADIN/WARFARIN INR THERAPY RANGESSTANDARD DOSE: 2.0-3.0 Includes: PROPHYLAXIS for venous thrombosis, systemic embolization; TREATMENT for venous thrombosis and/or pulmonary embolus.HIGH RISK: Target INR is2.5-3.5 for patients wiht mechanical heart valves.[id number] 05:41:00 Test Item Value Reference Range Interpretation Comments MAGNESIUM (BEAKER) (test code = 2.3 mg/dL 1.6-2.6 627) Economic Manager ID - [id number] 05:41:00 Test Item Value Reference Range Interpretation Comments PHOSPHORUS (BEAKER) (test code = 3.2 mg/dL 2.3-4.7 604) Economic Manager ID - SMB-TYPE NATRIURETIC FACTOR (BNP)2020-11-27 05:33:00 Test Item Value Reference Range Interpretation Comments B-TYPE NATRIURETIC PEPTIDE (BEAKER) 210 pg/mL 0-100 H (test code = 700) Economic Manager ID - SMCALCIUM, [id number] 05:27:00 Test Item Value Reference Range Interpretation Comments CALCIUM IONIZED (BEAKER) (test 1.04 mmol/L 1.12-1.27 L code = 698) PH, BLOOD (BEAKER) (test code = 7.33 1810) RETICULOCYTE [id number] 05:09:00 Test Item Value Reference Range Interpretation Comments RETICULOCYTE COUNT PCT (BEAKER) (test 2.3 % 0.5-1.7 H code = 575) Economic Manager ID - [id number] W/PLT COUNT & AUTO [id number] 05:09:00 Test Item Value Reference Range Interpretation [...] (BEAKER) (test code = 2801) MR, ABDOMEN, [id number] 20:05:00DR JALALReferring: Dr. Eric Champion portal vein clot and hccUnlisted Reason for Exam - Click Yes and Enter Reason Below->No[facility] : 1950 Sex: [...] MDReport Verified Date/Time: 11/26/2020 20:05:06 Reading Location: [facility] B1 C013Y CT Body Reading Room -COV2/RT-PCR ([facility])2020-11-26 18:12:00 Test Item Value Reference Range Interpretation Comments SARS-COV2/RT-PCR (test Negative Not Detected, Negative, code = 0712746) See external report for linked test SARS-COV-2 PERFORMING LAB [facility] (test code = 2966145) Negative result for this test determines that [...] 564(g) of the Act.Fact Sheet for Healthcare Providers:https://www.Pictour.us/sites/default/files/product/documents/Fact_Shee q_DO_Twbdtpufx_Dfyc_ZFQW-EbB-9.pdfFact Sheet for Healthcare Patients:https://www.Pictour.us/sites/default/files/product/ documents/Zdiw_Kdklr_Gvrokimr_Rqgd_KBCT-DfE-2.pdfPerforming Laboratory:[facility] [place] [address] [id number] 17:43:00 Test Item Value Reference Range Interpretation Comments HAPTOGLOBIN (BEAKER) (test code = 52 mg/dL 14 366) Economic Manager ID - BSVITAMIN B12 AND [id number] 16:08:00 Test Item Value Reference Range Interpretation Comments VITAMIN B12 659 pg/mL 213-816 (BEAKER) (test code = 774) FOLATE (BEAKER) 12.20 ng/mL See_Comment [Automated message] (test code = 362) The system which generated this result transmitted ref erence range: >=7.00. The reference range was not used to interpr et this result as normal/abnormal . Economic Manager ID - BSVITAMIN [id number] 15:58:00 Test Item Value Reference Range Interpretation Comments VITAMIN B12 (BEAKER) (test code = 623 pg/mL 213-816 774) Economic Manager ID - [id number] 15:58:00 Test Item Value Reference Range Interpretation Comments FERRITIN (BEAKER) (test code = 18.49 ng/mL 5.00-275.00 361) Economic Manager ID - BSTSH/FREE T4 IF [id number] 15:58:00 Test Item Value Reference Range Interpretation Comments THYROID STIMULATING HORMONE 1.498 uIU/mL 0.350-4.940 (BEAKER) (test code = 772) Economic Manager ID - BSTROPONIN [id number] 15:38:00 Test Item Value Reference Range Interpretation [...] failure, acidosis, acute neurological disease, and persistent tachyarrhythmia.Economic Manager ID - BSIRON, TIBC, % SAT. (WITHOUT FERRITIN)2020-11-26 15:31:00 Test Item Value Reference Range Interpretation Comments IRON (BEAKER) (test code = 547) 17.0 ug/dL 40.0-160.0 L TOTAL IRON BINDING CAPACITY 228 ug/dL 250-450 L (BEAKER) (test code = 769) IRON % SATURATION (2) (BEAKER) 7 % 20-55 L (test code = 2590) Economic Manager ID - BSLACTATE DEHYDROGENASE (LDH)2020-11-26 15:28:00 Test Item Value Reference Range Interpretation Comments LACTATE DEHYDROGENASE (BEAKER) (test 555 U/L 125-220 H code = 635) Economic Manager ID - BSRETICULOCYTE [id number] 14:12:00 Test Item Value Reference Range Interpretation Comments RETICULOCYTE COUNT PCT (BEAKER) (test 2.7 % 0.5-1.7 H code = 575) Economic Manager ID - [id number], PELVIS, 1 OR 2 [id number] 10:30:00DR GOLDYeferring: Dr. Eric Morel for exam:->LEG PAINBLReason for exam:->HIP PAINBLShouldthis be performed at the bedside?->Yes [facility] : 1950 Sex: FFINAL REPORT CLINICAL HISTORY: LEG PAINHIP PAIN TECHNIQUE: AP pelvis COMPARISON: None IMPRESSION: The pelvis appears intact without evidence of fracture or dislocation on the single frontal view. Signed: Sangeeta Garces Verified Date/Time: 11/26/2020 10:30:11 Reading Location: [facility] Radiology Reading Room RAD, CHEST, 1 VIEW, NON [id number] 10:30:00DR GOLDYeferring: Dr. Eric Morel for exam:->peripheral edemaBLReason for exam:->BLShouldthis be performed at the bedside?->Yes [facility] : 1950 Sex: FFINAL REPORT CLINICAL HISTORY: peripheral edema TECHNIQUE: 1 view of the chest. COMPARISON: 09/25/2019 IMPRESSION: Diffuse bilateral interstitial infiltrates are similar versus slightly increased in prominence. Subpulmonic pleural effusions cannot be excluded. The cardiomediastinal silhouette is magnified by technique. Elevation of the right hemidiaphragm is again seen. Signed: Sangeeta Garces Verified Date/Time: 11/26/2020 10:30:51 Reading Location: [facility] Radiology Reading Room TROPONIN [id number] 10:27:00 Test Item Value Reference Range Interpretation [...] failure, acidosis, acute neurological disease, and persistent tachyarrhythmia.Economic Manager ID - EDASIB-TYPE NATRIURETIC FACTOR (BNP)2020-11-26 10:26:00 Test Item Value Reference Range Interpretation Comments B-TYPE NATRIURETIC PEPTIDE (BEAKER) 114 pg/mL 0-100 H (test code = 700) Economic Manager ID - EDASICOMPREHENSIVE METABOLIC [id number] 10:23:00 Test Item Value Reference Range Interpretation [...] 347) EGFR (BEAKER) (test 38 mL/min/1.73 ESTIMA RABIA GFR IS code = 1092) sq m NOT ACCURATE CREATININE CLEARANCE IN PREDICTING GLOMERULAR FILTRATION RATE . ESTIMATED GFR I S NOT APPLICABLE FOR DIALYSIS PATIEN TS. Economic Manager ID - EDASICBC W/PLT COUNT & AUTO [id number] 10:09:00 Test Item Value Reference Range Interpretation [...] 0-1 PERCENT (BEAKER) (test code = 2801) [id number] 10:47:00 Test Item Value Reference Range Interpretation Comments RPR SCREEN (BEAKER) (test code = Nonreactive Nonreactive 420) HEMOGLOBIN [id number] 08:19:00 Test Item Value Reference Range Interpretation Comments HEMOGLOBIN A1C (BEAKER) (test code = 4.4 % 4.3-6.1 368) TSH/FREE T4 IF [id number] 07:41:00 Test Item Value Reference Range Interpretation Comments THYROID STIMULATING HORMONE 1.836 uIU/mL 0.350-4.940 (BEAKER) (test code = 772) Economic Manager ID - EDASIVITAMIN B12 AND [id number] 07:41:00 Test Item Value Reference Range Interpretation Comments VITAMIN B12 (BEAKER) (test code = 356 pg/mL 213-816 774) FOLATE (BEAKER) (test code = 362) 12.40 ng/mL >=7.00 Economic Manager ID - EDASISARS-COV2/RT-PCR ([facility])2020-10-24 07:10:00 Test Item Value Reference Range Interpretation Comments SARS-COV2/RT-PCR (test Negative Not Detected, Negative, code = 3117632) See external report for linked test SARS-COV-2 PERFORMING LAB [facility] (test code = 4491099) Negative result for this test determines that [...] the Cheema SARS-CoV-2 assay.Fact Sheet for Healthcare Providers:https://www.Qvanteq.cheema/derrick/ QG_JOGZ-NsS-5_RED_Rexd_Ecqfi_33-350576.pdfFact Sheet for Healthcare Patients:https://www.Qvanteq.Artaic lauryn/derrick/VJ_OYSY-OuG-6_Ogksqoc_Oald_Lcauf_WM_15-517379D2.pdfPerforming Laboratory:[facility] [place], [place] [address] [address] BASIC METABOLIC [id number] 06:47:00 Test Item Value Reference Range Interpretation [...] 697) EGFR (BEAKER) (test 62 mL/min/1.73 ESTIMA RABIA GFR IS code = 1092) sq m NOT ACCURATE CREATININE CLEARANCE IN PREDICTING GLOMERULAR FILTRATION RATE . ESTIMATED GFR I S NOT APPLICABLE FOR DIALYSIS PATIEN TS. Economic Manager ID - MURALI [id number] 06:47:00 Test Item Value Reference Range Interpretation Comments MAGNESIUM (BEAKER) (test code = 2.0 mg/dL 1.6-2.6 627) Economic Manager ID - MURALI [id number] 06:47:00 Test Item Value Reference Range Interpretation Comments PHOSPHORUS (BEAKER) (test code = 2.6 mg/dL 2.3-4.7 604) Economic Manager ID - MURALI LLIPID [id number] 06:47:00 Test Item Value Reference Range Interpretation [...] Borderline 130-159 High 160-189 Very High >=190 Economic Manager ID - MURALILCBC W/PLT COUNT & AUTO [id number] 06:07:00 Test Item Value Reference Range Interpretation [...] (BEAKER) (test code = 2801) CT, CTANGIO [id number] 00:46:00DR HILTONLAKYMeferring: Dr. Eric DalalUnlisted Reason for Exam - Click Yes and Enter Reason Below->No [facility] : 1950 Sex: [...] occipital lobe consistent with an evolving acute AIRPLANE CABIN ATTENDANT territory infarct. There is no acute intracranial [...] segment of the left posterior cerebral artery (AIRPLANE CABIN ATTENDANT). There is good flow related enhancement of [...] left caudate head lacunar infarct.Evolving acute left AIRPLANE CABIN ATTENDANT territory infarct.No acute intracranial hemorrhage or mass effect. CTA head:Occlusion of the P2 segment of the left AIRPLANE CABIN ATTENDANT. CTA neck:Mild short segment stenoses of the bilateral proximal cervical ICAs.No vessel occlusion or hemodynamically significant stenosis by NASCET criteria.Pulmonary findings which may represent pulmonary interstitial edema. A chest radiograph the helpful for further evaluation. Signed: Amy Villavicencio MDReport Verified Date/Time: 10/24/2020 00:46:37 CT, CAROTID, ANGIO 2020-10-24 00:46:00DR HILTONLAKYMeferring: Dr. Eric Sepulveda Reason for Exam - Click Yes and Enter Reason Below->No [facility] FRANCO SINGLETARYJAS : 1950 Sex: FFINAL REPORT EXAM: CT, [...] occipital lobe consistent with an evolving acute AIRPLANE CABIN ATTENDANT territory infarct. There is no acute intracranial [...] segment of the left posterior cerebral artery (AIRPLANE CABIN ATTENDANT). There is good flow related enhancement of [...] left caudate head lacunar infarct.Evolving acute left AIRPLANE CABIN ATTENDANT territory infarct.No acute intracranial hemorrhage or mass effect. CTA head:Occlusion of the P2 segment of the left AIRPLANE CABIN ATTENDANT. CTA neck:Mild short segment stenoses of the bilateral proximal cervical ICAs.No vessel occlusion or hemodynamically significant stenosis by NASCET criteria.Pulmonary findings which may represent pulmonary interstitial edema. A chest radiograph the helpful for further evaluation. Signed: Amy Villavicencioeport Verified Date/Time: 10/24/2020 00:46:37 C-REACTIVE PROTEIN 2020-10-23 20:16:00 Test Item Value Reference Range Interpretation Comments C-REACTIVE PROTEIN (HANNAAKER) (test 0.67 mg/dL 0.00-0.50 H code = 676) Economic Manager ID - DBMR, BRAIN, WITHOUT [id number] 18:51:00DR HILTONLALReferring: Dr. Eric Sepulveda Reason for Exam - Click Yes and Enter Reason Below->No [facility] : 1950 Sex: FFINAL [...] of the corpus callosum, consistent with acute AIRPLANE CABIN ATTENDANT territory infarct. No acute intracranial hemorrhage. No [...] Calvarium \\T\\ scalp: Unremarkable. 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 Signed: Shefali Marcos VerifiedDate/Time: 10/23/2020 18:51:36 TROPONIN I 2020-10-23 15:58:00 Test Item Value Reference Range Interpretation [...] failure, acidosis, acute neurological disease, and persistent tachyarrhythmia.Economic Manager ID - DBCOMPREHENSIVE METABOLIC [id number] 15:51:00 Test Item Value Reference Range Interpretation [...] hemolyzed EGFR (BEAKER) (test 59 mL/min/1.73 ESTIMA RABIA GFR IS code = 1092) sq m NOT ACCURATE CREATININE CLEARANCE IN PREDICTING GLOMERULAR FILTRATION RATE . ESTIMATED GFR I S NOT APPLICABLE FOR DIALYSIS PATIEN TS. Economic Manager ID - DBCT, BRAIN/STROKE [id number] 15:34:00DR GOLDYeferring: Dr. Eric Morel for exam:->Right visual field deficit [facility] : 1950 Sex: FFINAL [...] occipital lobe is suspicious for acute left AIRPLANE CABIN ATTENDANT territory infarct.2.No acute intracranial hemorrhage.3.Generalized parenchymalvolume loss and chronic microvascular changes, progressed since 2015. The findings were discussed with Dr. KATRIN DE LEON MD on 10/23/2020 3:34 PM. Signed: Shefali Marcos Verified Date/Time:10/23/2020 15:34:36 PROTHROMBIN TIME/[id number] 15:21:00 Test Item Value Reference Range Interpretation [...] INR is2.5-3.5 for patients wiht mechanical heart valves.PT/[id number] 15:21:00 Test Item Value Reference Range Interpretation [...] mechanical heart valves.CBC W/PLT COUNT & AUTO [id number] 15:12:00 Test Item Value Reference Range Interpretation [...] (BEAKER) (test code = 2801) URINALYSIS W/ [id number] 15:23:00 Test Item Value Reference Range Interpretation [...] code = 1521) SOURCE(BEAKER) (test code = 5673) Economic Manager ID - [auto]Economic Manager ID - techB-TYPE NATRIURETIC FACTOR (BNP)2020-09-27 11:13:00 Test Item Value Reference Range Interpretation Comments B-TYPE NATRIURETIC PEPTIDE (BEAKER) 156 pg/mL 0-100 H (test code = 700) Economic Manager ID - DBCOMPREHENSIVE METABOLIC [id number] 10:52:00 Test Item Value Reference Range Interpretation [...] 347) EGFR (BEAKER) (test 60 mL/min/1.73 ESTIMA RABIA GFR IS code = 1092) sq m NOT ACCURATE CREATININE CLEARANCE IN PREDICTING GLOMERULAR FILTRATION RATE . ESTIMATED GFR I S NOT APPLICABLE FOR DIALYSIS PATIEN TS. Economic Manager ID - [id number] 10:52:00 Test Item Value Reference Range Interpretation Comments MAGNESIUM (BEAKER) (test code = 1.7 mg/dL 1.6-2.6 627) Economic Manager ID - [id number] 10:52:00 Test Item Value Reference Range Interpretation Comments PHOSPHORUS (BEAKER) (test code = 2.0 mg/dL 2.3-4.7 L 604) Economic Manager ID - [id number] 10:41:00 Test Item Value Reference Range Interpretation Comments AMMONIA (BEAKER) (test code = 348) 36 mol/L 18-72 Economic Manager ID - DBCBC W/PLT COUNT & AUTO [id number] 10:35:00 Test Item Value Reference Range Interpretation [...] code = 2801) ALPHA FETOPROTEIN (AFP), TUMOR [id number] 17:48:00 Test Item Value Reference Range Interpretation Comments ALPHA-FETOPROTEIN (BEAKER) (test 2.3 ng/mL <10.0 code = 1094) Economic Manager ID - BSBASIC METABOLIC [id number] 16:33:00 Test Item Value Reference Range Interpretation [...] 697) EGFR (BEAKER) (test 72 mL/min/1.73 ESTIMA RABIA GFR IS code = 1092) sq m NOT ACCURATE CREATININE CLEARANCE IN PREDICTING GLOMERULAR FILTRATION RATE . ESTIMATED GFR I S NOT APPLICABLE FOR DIALYSIS PATIEN TS. Economic Manager ID - BSHEPATIC FUNCTION [id number] 16:29:00 Test Item Value Reference Range Interpretation [...] (test code = 21 U/L 6-55 347) Economic Manager ID - BSCBC W/PLT COUNT & AUTO [id number] 16:17:00 Test Item Value Reference Range Interpretation [...] PERCENT (BEAKER) (test code = 2801) PROTHROMBIN [id number] 16:16:00 Test Item Value Reference Range Interpretation [...] (test 2.8 ng/mL <10.0 code = 1094) Economic Manager ID - DBBASIC METABOLIC [id number] 18:13:00 Test Item Value Reference Range Interpretation [...] 697) EGFR (BEAKER) (test 61 mL/min/1.73 ESTIMA RABIA GFR IS code = 1092) sq m NOT ACCURATE CREATININE CLEARANCE IN PREDICTING GLOMERULAR FILTRATION RATE . ESTIMATED GFR I S NOT APPLICABLE FOR DIALYSIS PATIEN TS. Economic Manager ID - DBHEPATIC FUNCTION [id number] 18:13:00 Test Item Value Reference Range Interpretation [...] Specimen slightly (test code = 347) hemolyzed Economic Manager ID - DBPROTHROMBIN TIME/[id number] 17:20:00 Test Item Value Reference Range Interpretation [...] ng/mL <10.0 code = 1094) BASIC METABOLIC [id number] 13:59:00 Test Item Value Reference Range Interpretation [...] 697) EGFR (BEAKER) (test 57 mL/min/1.73 ESTIMA RABIA GFR IS code = 1092) sq m NOT ACCURATE CREATININE CLEARANCE IN PREDICTING GLOMERULAR FILTRATION RATE . ESTIMATED GFR I S NOT APPLICABLE FOR DIALYSIS PATIEN TS. Specimen slightly ictericHEPATIC FUNCTION [id number] 13:59:00 Test Item Value Reference Range Interpretation [...] 21 U/L 6-55 347) Specimen slightly ictericPROTHROMBIN TIME/[id number] 13:43:00 Test Item Value Reference Range Interpretation [...] mechanical heart valves.CBC W/PLT COUNT & AUTO [id number] 13:37:00 Test Item Value Reference Range Interpretation [...] (BEAKER) (test code = 2801) BASIC METABOLIC [id number] 18:07:00 Test Item Value Reference Range Interpretation [...] 697) EGFR (BEAKER) (test 65 mL/min/1.73 ESTIMA RABIA GFR IS code = 1092) sq m NOT ACCURATE CREATININE CLEARANCE IN PREDICTING GLOMERULAR FILTRATION RATE . ESTIMATED GFR I S NOT APPLICABLE FOR DIALYSIS PATIEN TS. Specimen slightly ictericHEPATIC FUNCTION [id number] 18:07:00 Test Item Value Reference Range Interpretation [...] (test code = 347) hemolyzed Specimen slightly ictericPT/[id number] 17:56:00 Test Item Value Reference Range Interpretation [...] mechanical heart valves.CBC W/PLT COUNT & AUTO [id number] 17:44:00 Test Item Value Reference Range Interpretation [...] (test code = 2801) RAD, CHEST, 2 [id number] 17:15:00Referring: Dr. Eric Morel for exam:->sobFINAL REPORT [...] Valladares MDReportVerified Date/Time: 09/25/2019 17:15:28 Reading Location: [facility] Radiology Reading Room LACTIC ACID, [id number] 09:40:00 Test Item Value Reference Range Interpretation Comments LACTATE BLOOD VENOUS 2.7 mmol/L 0.5-2.2 H Specime n slightly (2) (BEAKER) (test hemolyzed code = 2872) Specimen slightly ictericCOMPREHENSIVE METABOLIC [id number] 09:31:00 Test Item Value Reference Range Interpretation [...] 347) EGFR (BEAKER) (test 73 mL/min/1.73 ESTIMA RABIA GFR IS code = 1092) sq m NOT ACCURATE CREATININE CLEARANCE IN PREDICTING GLOMERULAR FILTRATION RATE . ESTIMATED GFR I S NOT APPLICABLE FOR DIALYSIS PATIEN TS. Specimen slightly ictericCBC W/PLT COUNT & AUTO [id number] 09:24:00 Test Item Value Reference Range Interpretation [...] = 2801) RAD, CHEST, 1 VIEW, NON [id number] 09:00:00Referring: Dr. Eric Morel for exam:->SHORTNESS OF BREATHShould [facility] be [facility]?->YesFINAL REPORT INDICATION: SHORTNESS OF BREATH COMPARISON: September [...] MDReport Verified Date/Time: 09/19/2019 09:00:49 Reading Location: [facility] Radiology Reading Room BLOOD [id number] 01:00:00 Test Item Value Reference Range Interpretation Comments CULTURE (BEAKER) (test No growth in 5 days code = 1095) BLOOD [id number] 01:00:00 Test Item Value Reference Range Interpretation Comments CULTURE (BEAKER) (test No growth in 5 days code = 1095) COMPREHENSIVE METABOLIC [id number] 07:18:00 Test Item Value Reference Range Interpretation [...] 347) EGFR (BEAKER) (test 79 mL/min/1.73 ESTIMA RABIA GFR IS code = 1092) sq m NOT ACCURATE CREATININE CLEARANCE IN PREDICTING GLOMERULAR FILTRATION RATE . ESTIMATED GFR I S NOT APPLICABLE FOR DIALYSIS PATIEN TS. LACTIC ACID, [id number] 06:20:00 Test Item Value Reference Range Interpretation Comments LACTATE BLOOD VENOUS (2) (BEAKER) 1.2 mmol/L 0.5-2.2 (test code = 2872) CBC W/PLT COUNT & AUTO [id number] 06:02:00 Test Item Value Reference Range Interpretation [...] (BEAKER) (test code = 2801) U/S, ABDOMINAL, [id number] 02:23:00Referring: Dr. Eirc Oneill limited area? Add comment if clarification is [...] Cirrhosis with moderate volume ascites. Signed: Sheron Arandaort Verified Date/Time: 09/10/2019 18:38:06 Reading Location: [place] [id number] Consult Reading Room POCT-LACTIC ACID, [id number] 16:53:00 Test Item Value Reference Range Interpretation Comments POC-LACTIC ACID, 3.1 mmol/L 0.9-1.7 H TESTED AT B [facility] [address] (BEAKER) (test [facility] [place] code = 2805) [address] RAD, CHEST, 1 VIEW, NON [id number] 16:48:00Referring: Dr. Eric Morel for exam:->ABDOMINAL PAINShould [...] and shoulders are noted. Signed: Tunde Cruz Verified Date/Time: 09/10/2019 16:48:56 Reading Location: [facility] Mammo Reading Room BASIC METABOLIC [id number] 16:27:00 Test Item Value Reference Range Interpretation [...] 697) EGFR (BEAKER) (test 68 mL/min/1.73 ESTIMA RABIA GFR IS code = 1092) sq m NOT ACCURATE CREATININE CLEARANCE IN PREDICTING GLOMERULAR FILTRATION RATE . ESTIMATED GFR I S NOT APPLICABLE FOR DIALYSIS PATIEN TS. Specimen slightly ictericHEPATIC FUNCTION [id number] 16:27:00 Test Item Value Reference Range Interpretation [...] Specimen slightly ictericCBC W/PLT COUNT & AUTO [id number] 16:15:00 Test Item Value Reference Range Interpretation [...] PERCENT (BEAKER) (test code = 2801) TISSUE [id number] 15:15:00Surgical Pathology Report Case: [id number] Authorizing Provider: Obed James MD Collected: 08/13/2019 0950 Ordering Location: [facility] Endoscopy Received: 08/13/2019 1421 Services [...] POLYP, MULTIPLE. Signing Pathologist Direct Phone Line: [phone] signed by Constantine Linn MD on 08/14/2019 at 3:15 [id number] colonoscopyA. Small bowel, NOS, small bowel biopsy [...] Submitted in toto in block B1. HL/plPerformed. [facility], Department of [facility]ology, [address] [place] [address], [facility], [address] [place] [address], [facility]zc[facility], Department of Pathology, [address] [place] [address], BCP W/PLT COUNT & AUTO [id number] 07:33:00 Test Item Value Reference Range Interpretation [...] code = 2801) ALPHA FETOPROTEIN (AFP), TUMOR [id number] 19:11:00 Test Item Value Reference Range Interpretation Comments ALPHA-FETOPROTEIN (BEAKER) (test 2.8 ng/mL <10.0 code = 1094) BASIC METABOLIC [id number] 13:49:00 Test Item Value Reference Range Interpretation [...] 697) EGFR (BEAKER) (test 68 mL/min/1.73 ESTIMA RABIA GFR IS code = 1092) sq m NOT ACCURATE CREATININE CLEARANCE IN PREDICTING GLOMERULAR FILTRATION RATE . ESTIMATED GFR I S NOT APPLICABLE FOR DIALYSIS PATIEN TS. Specimen slightly ictericHEPATIC FUNCTION [id number] 13:49:00 Test Item Value Reference Range Interpretation [...] Specimen slightly ictericCBC W/PLT COUNT & AUTO [id number] 13:40:00 Test Item Value Reference Range Interpretation [...] PERCENT (BEAKER) (test code = 2801) PROTHROMBIN [id number] 13:37:00 Test Item Value Reference Range Interpretation Comments PROTIME (BEAKER) (test code = 16.3 seconds 11.9-14.2 H 759) INR (HAO) (test code = 370) 1.4 <=5.9 Effective 03/14/2019: PT Reference Range ChangeNew: 11.9-14.2 Previous: 11.7- 14.7RECOMMENDED COUMADIN/WARFARIN INR THERAPY RANGESSTANDARD DOSE: 2.0-3.0 Includes: PROPHYLAXIS for venous thrombosis, systemic embolization; TREATMENT for venous thrombosis and/or pulmonary embolus.HIGH RISK: Target INR is2.5-3.5 for patients wiht mechanical heart valves.TISSUE [id number] 09:29:00Surgical Pathology Report Case: [id number] Authorizing Provider: Obed James MD Collected: 08/07/2018 0914 Ordering Location: [facility] Endoscopy Received: 08/07/2018 1134 Services Pathologist: Constantine Linn MD Specimens: A) - Small Bowel, NOS B) -Antrum PART A SMALL INTESTINE, BIOPSY:SMALL INTESTINAL MUCOSA WITH PRESERVED VILLOUS ARCHITECTURE.NO GRANULOMAS, ULCERATION, DYSPLASIA, OR INVASIVE CARCINOMA SEEN.PART B GASTRIC ANTRUM, BIOPSY:MILD CHRONIC INACTIVE GASTRITIS.WARTHIN STARRY STAIN FOR HELICOBACTER IS NEGATIVE. Signing Pathologist Direct Phone Line: [phone] signed by Constantine Linn MD on 08/09/2018 at 9:29 [id number], [id number] screening A. Small bowel. B. Antrum Specimen [...] in the diagnostic report above:BLOCK B1- WARTHINSTARRYTISSUE [id number] 08:31:00Surgical Pathology Report Case: [id number] Authorizing Provider: Obed James MD Collected: 01/27/2018 1140 Ordering Location: [facility] Endoscopy Received: 01/27/2018 1533 Services Pathologist: Constantine Linn MD Specimen: Biopsy, Gastric, ANTRAL BX/FORCEP PART A GASTRIC ANTRUM BIOPSY:MILD CHRONIC INACTIVE GASTRITIS.WARTHIN STARRY STAIN FOR HELICOBACTER IS NEGATIVE. Signing Pathologist Direct Phone Line: [phone] signed by Constantine Linn MDon 01/30/2018 at 8:31 [id number], [id number] cirrhosis. Gastric antrum biopsy In formalin labeled "biopsy, gastric", description "antral biopsy" are three fragments measuring 0.6 x 0.5 x 0.1 cm in aggregate. Entirely submitted A1. DB/bc The following special studies were performed on this case and the interpretation is incorporated in the diagnostic report above:BLOCK A1- GALLO BRUCE, ABDOMEN, [id number] 09:41:00Referring: Dr. Eric Moscoso REPORT History: Portal [...] MDReport Verified Date/Time: 01/19/2018 09:41:39 Reading Location: [facility] Diagnostic Imaging Reading Room - SLSWV F1 1120 Electronically signed by: LASHAE MERAZ M.D.on 01/19/2018 09:41 AM [id number] 08:28:00 Test Item Value Reference Range Interpretation Comments POC-CREATININE 0.7 mg/dL 0.6-1.3 TESTED AT [facility] 6720 (HAO) (test [place] code = 1859) [id number] POC-EGFR (HAO) 83 mL/min/1.73M2 (test code = 1860) MR, ABDOMEN, [id number] 15:45:00Referring: Dr. Eric Morel for Exam:- >cirrhosis, [...] lesion. IMPRESSION: Stable examination when compared to 11/24/2016. No new liver lesion. Cirrhosis, splenomegaly, and findings of portal hypertension. No significant ascites. 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 Signed: Jonn Ac Verified Date/Time: 07/29/2017 15:45:59 Reading Location: [address] Radiology Reading Room [id number] 10:20:00 Test Item Value Reference Range Interpretation Comments POC-CREATININE 0.8 mg/dL 0.6-1.3 TESTED AT [facility] 6720 (BEAKER) (test [place] code = 1859) [id number] POC-EGFR (BEAKER) 72 mL/min/1.73M2 (test code = 1860) TISSUE [id number] 13:53:00Surgical Pathology Report Case: [id number] Authorizing Provider: Obed James MD Collected: 03/21/2017 0946 Ordering Location: [facility] Endoscopy Received: 03/21/2017 1202 Services Pathologist: Re Engel MD Specimen: Biopsy, Gastric, ANTRAL BX/FORCEP STOMACH, ANTRUM, BIOPSY: - ANTRAL MUCOSA WITH CHRONIC INACTIVE GASTRITIS, MILD MUCOSAL CONGESTION, AND INTESTINAL METAPLASIA [id number] ascitesAntrum gastric biopsyThe specimen is received in a formalin-filled container and labeled with the patient's information and labeled "antral gastric biopsy" and consists of a 0.1 cm fragment of eng soft tissue, submitted entirely A1. CG/plPerformed.The following special studies were performedon this case and the interpretation is incorporated in the diagnostic report above:Warthin Starry stain negative for Helicobacter pylori organisms. [id number] 07:58:00 Test Item Value Reference Range Interpretation Comments POC-POTASSIUM 4.8 meq/L 3.6-5.5 TESTED AT [facility] 6720 (BEAKER) ([place] [address] = 1540) CBC W/PLT COUNT & AUTO [id number] 12:57:00 Test Item Value Reference Range Interpretation [...] code = 417) 0.00ALPHA FETOPROTEIN (AFP), TUMOR [id number] 12:30:00 Test Item Value Reference Range Interpretation Comments ALPHA-FETOPROTEIN (BEAKER) (test 3.1 ng/mL <10.0 code = 1094) Effective 09/03/2014: Reference Range ChangeNew: <10.0 Previous: 0.0-8.0 HEPATIC FUNCTION [id number] 12:10:00 Test Item Value Reference Range Interpretation [...] = 14 U/L 6-55 347) BASIC METABOLIC [id number] 12:10:00 Test Item Value Reference Range Interpretation [...] 697) EGFR (BEAKER) (test 68 mL/min/1.73 ESTIMA RABIA GFR IS code = 1092) sq m NOT ACCURATE CREATININE CLEARANCE IN PREDICTING GLOMERULAR FILTRATION RATE . ESTIMATED GFR I S NOT APPLICABLE FOR DIALYSIS PATIEN TS. [id number] 12:01:00 Test Item Value Reference Range Interpretation Comments FIBRINOGEN LEVEL (BEAKER) (test 269 mg/dl 225-434 code = 658) PROTHROMBIN TIME/[id number] 12:00:00 Test Item Value Reference Range Interpretation [...]
[2021-09-13 13:45] LABS: Absolute Lymphocytes (CBC) 0.8 K/uL (0.7-4.9); Basophils % 0.7 % (0-1.3); Hematocrit 30.2 % (36.0-45.0); Lymphocytes % 18.2 % (15.3-44.8); MPV 8.2 fL (7.6-11.3); RBC Red Blood Cell Count 3.46 M/uL (3.86-4.86)
[2021-09-13 14:08] LABS: Albumin 2.2 g/dL (3.4-5.0); Bilirubin Direct 0.4 mg/dL (0-0.2); Bilirubin Total 1.2 mg/dL (0.2-1.0); Potassium 4.1 mmol/L (3.5-5.1); Protein, Total 7.3 g/dL (6.4-8.2); Troponin (Emerg Dept Use Only) 0.02 ng/mL (0.0-0.045)
--- NOTE | 2021-09-13 14:24 | RAD REPORT ---
EXAM DESCRIPTION: RAD - Chest Single View - 09/13/2021 2:02 pm CLINICAL HISTORY: COUGH Chest pain. COMPARISON: Chest Single View dated 12/09/2020; Chest Single View dated 09/23/2019; Chest Pa And Lat ( 2 Views) dated 07/24/2019; CHEST SINGLE VIEW dated 09/22/2015 FINDINGS: Portable technique limits examination quality. Bilateral pulmonary opacities are present without significant change since prior examination from kelvin ris. This most likely represents pulmonary edema. The heart is mildly enlarged in size. No displaced fractures. IMPRESSION: Mild CHF suspected.
--- NOTE | 2021-09-13 15:16 | RAD REPORT ---
EXAM DESCRIPTION: US - Abdomen Exam Limited - 09/13/2021 2:30 pm CLINICAL HISTORY: ABD PAIN COMPARISON: No comparisons FINDINGS: Examination was limited by excessive bowel gas. The gallbladder demonstrates no gross gallstones. No pericholecystic fluid or gallbladder wall thicke alejandro. The common bile duct is nonvisualized. The liver demonstrates heterogenous texture. IMPRESSION: Limited study with no gross evidence of gallstones.
--- NOTE | 2021-09-13 15:42 | ER ---
Nurse's Notes [facility] Name: Nelda Ramírez Age: 71 yrs Sex: Female : 1950 Arrival Date: 09/13/2021 Time: 12:58 Bed 14 Private MD: Cristi Neal V Diagnosis: Nausea Presentation: 09/13 13:02 Chief complaint: Patient's son or daughter states: she has hx of cirrhosis, has been iw having waves of nausea for past week, denies vomiting or diarrhea, no abd pain. Coronavirus screen: At this time, the client does not indicate any symptoms associated with coronavirus-19. Ebola Screen: Patient negative for fever greater than or equal to 101.5 degrees Fahrenheit, and additional compatible Ebola Virus Disease symptoms Patient denies exposure to infectious person. Patient denies travel to an Ebola-affected area in the 21 days before illness onset. No symptoms or risks identified at this time. Initial Sepsis Screen: Does the patient meet any 2 criteria? No. Patient's initial sepsis screen is negative. Does the patient have a suspected source of infection? No. Patient's initial sepsis screen is negative. Risk Assessment: Do you want to hurt yourself or someone else? Patient reports no desire to harm self or others. 13:02 Method Of Arrival: Ambulatory iw 13:02 Acuity: SERGIO 3 iw 15:50 Onset of symptoms was September 13, 2021. ld1 Historical: - Allergies: 13:04 Aspirin; iw 13:04 Cipro; iw 13:04 PENICILLINS; iw - Home Meds: 13:04 torsemide 20 mg oral tab 1 tab once daily [Active]; spironolactone 25 mg Oral tab 1 tab iw once daily [Active]; Xifaxan 550 mg oral tab 1 tab 2 times per day [Active]; Lactulose Oral 3 times per day [Active]; - PMHx: 13:04 CHF; Cirrhosis; Hypertension; liver/kidney disease; iw - PSHx: 13:04 None; iw - Immunization history:: Client reports receiving the 2nd dose of the Covid vaccine. - Social history:: Smoking status: Patient denies any tobacco usage or history of. Screenin:41 Abuse screen: Denies threats or abuse. Denies injuries from another. Nutritional ld1 screening: No deficits noted. Tuberculosis screening: No symptoms or risk factors identified. Fall Risk None identified. Assessment: 13:41 General: Appears in no apparent distress. comfortable, Behavior is calm, cooperative, ld1 appropriate for age. Pain: Complains of pain in abdomen Pain does not radiate. Pain currently is 6 out of 10 on a pain scale. Quality of pain is described as throbbing, Pain began gradually, Is continuous. Neuro: Level of Consciousness is awake, alert, obeys commands, Oriented to person, place, time, situation, Appropriate for age. Cardiovascular: Capillary refill < 3 seconds Patient's skin is warm and dry. Rhythm is regular. Respiratory: Airway is patent Respiratory effort is even, unlabored, Respiratory pattern is regular, symmetrical. GI: Abdomen is round non-distended, Reports lower abdominal pain, upper abdominal pain, nausea. : No signs and/or symptoms were reported regarding the genitourinary system. EENT: No signs and/or symptoms were reported regarding the EENT system. Derm: No signs and/or symptoms reported regarding the dermatologic system. Musculoskeletal: No signs and/or symptoms reported regarding the musculoskeletal system. 14:41 Reassessment: Patient appears in no apparent distress at this time. No changes from ld1 previously documented assessment. Patient and/or family updated on plan of care and expected duration. Pain level reassessed. Patient is alert, oriented x 3, equal unlabored respirations, skin warm/dry/pink. 15:49 Reassessment: Patient appears in no apparent distress at this time. No changes from ld1 previously documented assessment. Patient and/or family updated on plan of care and expected duration. Pain level reassessed. Patient is alert, oriented x 3, equal unlabored respirations, skin warm/dry/pink. Vital Signs: 13:02 BP 144 / 57; Pulse 91; Resp 16; Temp 96.5; Pulse Ox 100% on R/A; Weight 85.73 kg; Pain iw 0/10; 13:41 BP 128 / 66; Pulse 86; Resp 18; Pulse Ox 100% on R/A; Pain 6/10; ld1 14:41 BP 132 / 54; Pulse 86; Resp 18; Pulse Ox 100% on R/A; ld1 15:49 BP 129 / 66; Pulse 82; Resp 18; Pulse Ox 100% on R/A; ld1 ED Course: 12:58 Patient arrived in ED. as 12:59 Cristi Neal MD is Private Physician. as 13:04 Triage completed. iw 13:06 Arm band placed on. iw 13:08 Monica Cortes MD is Attending Physician. sp3 13:12 Jena Bernal, RN is Primary Nurse. ld1 13:41 Patient has correct armband on for positive identification. Placed in gown. Bed in low ld1 position. Call light in reach. Side rails up X2. pvc monitor on. Pulse ox on. NIBP on. Door closed. Noise minimized. Warm blanket given. 13:41 No provider procedures requiring assistance completed. Inserted saline lock: 22 gauge ld1 in right antecubital area, using aseptic technique. Blood collected. 14:02 CXR XRAY In Process Unspecified. EDMS 14:30 US Abdomen Limited In Process Unspecified. EDMS 15:41 Cristi Neal MD is Referral Physician. sp3 15:50 IV discontinued, intact, bleeding controlled, No redness/swelling at site. ld1 Administered Medications: No medications were administered Outcome: 15:41 Discharge ordered by . sp3 15:49 Discharged to home ambulatory, with family. ld1 15:49 Condition: stable 15:49 Discharge instructions given to patient, family, Instructed on discharge instructions, follow up and referral plans. medication usage, Demonstrated understanding of instructions, follow-up care, medications, Prescriptions given X 1. 15:50 Patient left the ED. ld1 Signatures: Dispatcher [employer] Lexy Cespedes as Yessica Ramos RN RN iw Jena Bernal, GLADIS RN ld1 Monica Cortes MD MD sp3 Corrections: (The following items were deleted from the chart) 13:06 13:02 Resp 16bpm; Temp 96.5F; 85.73 kg; Pain 0/10; iw iw
--- NOTE | 2021-09-13 15:42 | EDPHYS ---
Physician Documentation [facility] Name: Nelda Ramírez Age: 71 yrs Sex: Female : 1950 Arrival Date: 09/13/2021 Time: 12:58 Bed 14 Private MD: Cristi Neal V ED Physician Monica Cortes HPI: 09/13 13:26 This 71 yrs old Female presents to ER via Ambulatory with complaints of Nausea.sp3 13:26 71-year-old female with a history of liver cirrhosis, hypertension, chronic kidney sp3 disease, CHF presents with a 2 to 3-day history of nausea which may have started up to a week ago but has been pronounced over the last 2 to 3 days. Today patient "got sick of it" and daughter brought her into the ED for evaluation "out of an abundance of caution". Patient is having no pain in any area and denies fever, URI symptoms, headache, neck pain, chest pain, shortness of breath, abdominal pain, diarrhea or vomiting, rash, focal neuro deficit, any other findings at this time. Nausea waxes and wanes and again patient states that she just "wants to be safe". Patient does not have any antiemetics at home has not taken anything for her symptoms.. Historical: - Allergies: 13:04 Aspirin; iw 13:04 Cipro; iw 13:04 PENICILLINS; iw - Home Meds: 13:04 torsemide 20 mg oral tab 1 tab once daily [Active]; spironolactone 25 mg Oral tab 1 tab iw once daily [Active]; Xifaxan 550 mg oral tab 1 tab 2 times per day [Active]; Lactulose Oral 3 times per day [Active]; - PMHx: 13:04 CHF; Cirrhosis; Hypertension; liver/kidney disease; iw - PSHx: 13:04 None; iw - Immunization history:: Client reports receiving the 2nd dose of the Covid vaccine. - Social history:: Smoking status: Patient denies any tobacco usage or history of. ROS: 13:27 Constitutional: Negative for fever, chills, and weight loss, Eyes: Negative for injury, sp3 pain, redness, and discharge, ENT: Negative for injury, pain, and discharge, Neck: Negative for injury, pain, and swelling, Cardiovascular: Negative for chest pain, palpitations, and edema, Respiratory: Negative for shortness of breath, cough, wheezing, and pleuritic chest pain, Back: Negative for injury and pain, MS/Extremity: Negative for injury and deformity, Skin: Negative for injury, rash, and discoloration, Neuro: Negative for headache, weakness, numbness, tingling, and seizure, Allergy/Immunology: Negative for hives, rash, and allergies, Hematologic/Lymphatic: Negative for swollen nodes, abnormal bleeding, and unusual bruising. 13:27 All other systems are negative. Exam: 13:28 Constitutional: This is a well developed, well nourished patient who is awake, alert, sp3 and in no acute distress. Head/Face: Normocephalic, atraumatic. Eyes: Pupils equal round and reactive to light, extra-ocular motions intact. Lids and lashes normal. Conjunctiva and sclera are non-icteric and not injected. Cornea within normal limits. Periorbital areas with no swelling, redness, or edema. ENT: Nares patent. No nasal discharge, no septal abnormalities noted. External auditory canals are clear. Oropharynx with no redness, swelling, or masses, exudates, or evidence of obstruction, uvula midline. Mucous membranes moist. Neck: Trachea midline, no thyromegaly or masses palpated, and no cervical lymphadenopathy. Supple, full range of motion without nuchal rigidity, or vertebral point tenderness. No Meningismus. Chest/axilla: Normal chest wall appearance and motion. Nontender with no deformity. No lesions are appreciated. Cardiovascular: Regular rate and rhythm with a normal S1 and S2. No gallops, murmurs, or rubs. Normal PMI, no JVD. No pulse deficits. Respiratory: Lungs have equal breath sounds bilaterally, clear to auscultation and percussion. No rales, rhonchi or wheezes noted. No increased work of breathing, no retractions or nasal flaring. Abdomen/GI: Soft, non-tender, with normal bowel sounds. No distension or tympany. No guarding or rebound. No evidence of tenderness throughout. Back: No spinal tenderness. No costovertebral tenderness. Full range of motion. MS/ Extremity: Pulses equal, no cyanosis. Neurovascular intact. Full, normal range of motion. Neuro: Awake and alert, GCS 15, oriented to person, place, time, and situation. Cranial nerves II-XII grossly intact. Motor strength 5/5 in all extremities. Sensory grossly intact. Cerebellar exam normal. Normal gait. Psych: Awake, alert, with orientation to person, place and time. Behavior, mood, and affect are within normal limits. 13:28 Abdomen/GI: sp3 13:28 Abdomen/GI: On palpation patient does have mild epigastric pain. No peritoneal signs, rebound or guarding noted. Bowel sounds are normal.. 13:42 ECG was reviewed by the Attending Physician. EKG demonstrates normal sinus rhythm at 81 sp3 bpm with normal intervals, normal axis, Q-wave in lead III of unknown age, nonspecific diffuse ST/T changes without evidence of acute ischemia. Vital Signs: 13:02 BP 144 / 57; Pulse 91; Resp 16; Temp 96.5; Pulse Ox 100% on R/A; Weight 85.73 kg; Pain iw 0/10; 13:41 BP 128 / 66; Pulse 86; Resp 18; Pulse Ox 100% on R/A; Pain 6/10; ld1 14:41 BP 132 / 54; Pulse 86; Resp 18; Pulse Ox 100% on R/A; ld1 15:49 BP 129 / 66; Pulse 82; Resp 18; Pulse Ox 100% on R/A; ld1 MDM: 13:12 Patient medically screened. sp3 13:28 Data reviewed: vital signs, nurses notes. sp3 13:29 ED course: 71-year-old female with multiple medical problems now presents with chief sp3 complaint nausea and she has mild epigastric pain on physical exam. Acute abdomen is not suspected. Will obtain right upper quadrant ultrasound, chest x-ray, EKG, cardiac markers, routine labs. Differential does include biliary etiology, pancreatitis, ACS, and functional nausea or viral syndrome. If work-up is negative will discharge patient home with follow-up with Dr. Neal on antiemetics.. 15:40 ED course: Ultrasound demonstrates no gallstones and laboratory values are at baseline sp3 and/or with no significant abnormalities. Will discharge patient home with reassurance and with the Zofran prescription with instructions to follow-up with her PCP.. 09/13 13:12 Order name: Basic Metabolic Panel; Complete Time: 14:45 sp3 09/13 13:12 Order name: CBC with Diff; Complete Time: 14:45 sp3 09/13 13:12 Order name: Hepatic Function; Complete Time: 14:45 sp3 09/13 13:12 Order name: Lipase; Complete Time: 14:45 sp3 09/13 13:12 Order name: Troponin (emerg Dept Use Only); Complete Time: 14:45 sp3 09/13 14:46 Order name: BNP; Complete Time: 15:12 sp3 09/13 13:12 Order name: IV Saline Lock; Complete Time: 13:40 sp3 09/13 13:12 Order name: Labs collected and sent; Complete Time: 13:40 sp3 09/13 13:12 Order name: CXR XRAY; Complete Time: 14:45 sp3 09/13 13:12 Order name: EKG - Nurse/Tech; Complete Time: 13:40 sp3 09/13 13:17 Order name: US Abdomen Limited; Complete Time: 15:39 sp3 Administered Medications: No medications were administered Disposition Summary: 09/13/21 15:41 Discharge Ordered Location: Home sp3 Condition: Stable sp3 Diagnosis - Nausea sp3 Followup: sp3 - With: Cristi Neal MD - When: As needed - Reason: Recheck today's complaints Discharge Instructions: - Discharge Summary Sheet sp3 - Nausea, Adult sp3 Forms: - Medication Reconciliation Form sp3 - Thank You Letter sp3 - Antibiotic Education sp3 - Prescription Opioid Use sp3 Prescriptions: - Zofran 4 mg Oral Tablet - take 1 tablet by ORAL route every 12 hours As needed; 20 tablet; Refills: 0, sp3 Product Selection Permitted Signatures: Dispatcher [employer] Yessica Rosado, Monica Durán RN, MD MD sp3
[2021-09-13 15:56] VITALS: TEMP 96.5; O2SAT 100
[2021-09-13 16:00] VITALS: BP 129/66
== END 2021-09-13 15:50 | disposition home or self-care (01) ==
LOC: ER 12:57
DX: R11.0 Nausea (principal); I10 Essential (primary) hypertension; I50.9 Heart failure, unspecified; Z88.0 Allergy status to penicillin; Z88.1 Allergy status to other antibiotic agents; Z88.6 Allergy status to analgesic agent
CPT/HCPCS: 36415; 71045; 76705; 80048; 80076; 83690; 83880; 84484; 85025; 93005; 99284

== ENCOUNTER 2022-02-23 14:06 | Emergency (ER) | payer OTHER ==
--- OUTSIDE RECORDS SUMMARY | 2022-02-23 14:16 | XMS REPORT | Continuity of Care Document ---
:1950 Author Organization [facility] t Address [address] [place] [address] Care Team Providers Name Role Phone Val Boyce MD Primary Care Physician RANDI HANSEN Attending Clinician Unavailable PETER JAMES Attending Clinician Unavailable HAMIDA MUNOZ Attending Clinician Unavailable SHEFALI ARIAS Attending Clinician Unavailable CANDE CASTILLO Attending Clinician Unavailable POLLY Attending Clinician Unavailable Cara DEJESUS Attending Clinician Unavailable SHEFALI BUCHANAN Attending Clinician Unavailable KYARA Attending Clinician Unavailable Polly WILLSON Attending Clinician SHEFALI SOUZA Attending Clinician Unavailable AHLEY Attending Clinician Unavailable JACINTA GALLARDO Attending Clinician Unavailable Lizandro WALTON Attending Clinician Unavailable JABIER CLEMENTS Attending Clinician Unavailable RANDI HANSEN Admitting Clinician Unavailable PETER JAMES Admitting Clinician Unavailable HAMIDA MUNOZ Admitting Clinician Unavailable INGRIS LOWERY Admitting Clinician Unavailable GHAZAL AMOR Admitting Clinician Unavailable ARIELLE YOST Admitting Clinician Unavailable Admitting Clinician Unavailable PATRICIA SORIA Admitting Clinician Unavailable Payers Payer Name Policy Type Policy Number Effective Date Expiration Date S ource MEDICARE A B [id number] 2015 00:00:00 [place]ICA[place] [id number] 2016 2016 [place] 00:00:00 00:00:00 MEDICARE PART A [id number] \\T\\ B - MEDICARE [facility]-MEDICAID - [id number] 2016 2017 MEDICAID 00:00:00 00:00:00 OUT OF STATE [id number] BCBS - PPO - BCBS Problems Condition Condition Condition Status Onset Resolution Last Treating Co mments Source Name Details Category Date Date Treatment Clinician Date Cirrhosis Cirrhosis Disease Active [place] [facility] (HCCode) (HCCode) 1-14 Colleg e 00:00: of 00 Medicin e Allergies, Adverse Reactions, Alerts Allergy Allergy Status Severity Reaction(s) Onset Inactive Treating Comm ents Source Name Type Date Date Clinician Tabatha Coleensi Active [facility] xacin ty to 05 [place] adverse 00:00: of reaction 00 Medicin s to e drug Penicill Propensi Active [facility] ins ty to 02-18 [place] adverse 00:00: of reaction 00 Medicin s to e drug CIPROFLO Allergy Active [place] NPI:118 XACIN 2-22 [id number] 00:00: 00 PENICILL Allergy Active Low Hives NPI:118 INS 1-20 [id number] 00:00: 00 Social History Social Habit Start Date Stop Date Quantity Comments Source Alcohol intake 2021-07-30 2021-07-30 Ex-drinker [facility] Col [facility]ge 00:00:00 00:00:00 (finding) of Medicine Tobacco use and 2017-02-18 2017-02-18 Never used [facility] Co llege exposure 00:00:00 00:00:00 of Medicine Sex Ass[birth year] [facility] 00:00:00 00:00:00 of Medicine Smoking Status Start Date Stop Date Source Never smoker [facility] o f Medicine Medications Ordered Filled Start Stop Current Ordering Indication Dosage Frequency Signature Comments Components Source Medication Medication Date Date Medication? Clinician (SIG) Name Name RifAXIMin 2020-10 Yes 1{tbl} Take 1 Tab [facility] (XIFAXAN) 0-14 by mouth Colleg e 550 MG TABS 13:10: two times o f 18 daily. Medicin e spironolact 2020-10 Yes 100mg Take 100 [facility] one 0-14 mg by [place] (ALDACTONE) 13:10: mouth of 100 MG 18 daily. Medicin tablet e lactulose 2020-10 Yes 20g Take 20 g [place] [facility] (CHRONULAC) 0-14 by mouth 3 Co llege 10 GM/15ML 13:10: times of solution 18 daily. Medicin e furosemide 2020-10- No 20mg Take 20 mg [facility] (LASIX) 20 0-14 10-14 by mouth Franny ege MG tablet 13:10: 00:00 daily. of 07 :00 Medicin e rivastigmin Yes [facility] e 4.6 9-29 College MG/24HR 00:00: of PT24 00 Medicin e propranolol 2020- No 60mg Take 60 mg [facility] (INDERAL 3 03-04 by mouth Colleg e [place]) 60 MG 14:11: 00:00 daily. of SR capsule 49 :00 Medicin e medroxyPROG 2020- No 20mg Take 20 mg [facility] ESTERone 12-15 by mouth. Colle ge (PROVERA) 00:00: 04:59 of 10 MG 00 :00 Medicin tablet e midodrine Yes TAKE 1 [facility] (PROAMATINE 2-22 TABLET BY Col lege ) 5 MG 00:00: MOUTH of tablet 00 THREE Medicin TIMES e DAILY midodrine 2020- No TAKE 1 [facility] (PROAMATINE 2-22 10-14 TABLET BY Co llege ) 5 MG 00:00: 00:00 MOUTH of tablet 00 :00 THREE Medicin TIMES e DAILY aspirin EC 2021- No 81mg Take 81 mg [facility] 81 MG 10-25 by mouth. College tablet 00:00: 05:59 of 00 :00 Medicin e aspirin EC 2021- No 81mg Take 81 mg [facility] 81 MG 10-25 by mouth. College tablet 00:00: 05:59 of 00 :00 Medicin e furosemide Yes 20mg Take 20 mg [facility] (LASIX) 20 1-12 by mouth Colle ge MG tablet 19:21: daily. of 17 Medicin e RifAXIMin Yes 1{tbl} Take 1 Tab [facility] (XIFAXAN) 1-12 by mouth Colleg e 550 MG TABS 19:21: two times o f 17 daily. Medicin e spironolact Yes 100mg Take 100 [facility] one 1-12 mg by [place] (ALDACTONE) 19:21: mouth of 100 MG 17 daily. Medicin tablet e lactulose Yes 20g Take 20 g [place] [facility] (CHRONULAC) 1-12 by mouth 3 Co llege 10 GM/15ML 19:21: times of solution 17 daily. Medicin e Immunizations Ordered Immunization Filled Immunization Date Status Commen ts Source Name Name Influenza Hd 2020-08-15 Completed [facility] 00:00:00 of Medicine Zoster Recombinant 2020-08-15 Completed [facility] 00:00:00 of Medicine Influenza Hd 2020-08-15 Completed [facility] ge 00:00:00 of Medicine Zoster Recombinant 2020-08-15 Completed [facility] 00:00:00 of Medicine Pneumococcal 2019-09-06 Completed [facility] ge Polysaccharide 00:00:00 of Medicin e Pneumococcal 2019-09-06 Completed [facility] ge Polysaccharide 00:00:00 of Medicin e Vital Signs Vital Name Observation Time Observation Value Comments Source HEIGHT 2021-02-25 13:49:00 167.6 cm WEIGHT 2021-02-25 13:49:00 95.255 kg HEIGHT 2020-12-09 21:00:00 167.6 cm WEIGHT 2020-12-09 21:00:00 89.812 kg HEIGHT 2021-11-23 09:09:00 167.6 cm WEIGHT 2021-11-23 09:09:00 97.705 kg HEIGHT 2021-11-18 14:59:00 167.6 cm WEIGHT 2021-11-18 14:59:00 89.812 kg HEIGHT 2021-11-23 09:09:00 167.6 cm WEIGHT 2021-11-23 09:09:00 97.705 kg HEIGHT 2021-11-18 14:59:00 167.6 cm WEIGHT 2021-11-18 14:59:00 89.812 kg HEIGHT 2021-09-21 08:39:00 167.6 cm WEIGHT 2021-09-21 08:39:00 93.895 kg HEIGHT 2021-09-21 08:39:00 167.6 cm WEIGHT 2021-09-21 08:39:00 93.895 kg Systolic blood 2021-07-30 18:08:00 129 mm[Hg] [facility] pressure Medicine Diastolic blood 2021-07-30 18:08:00 67 mm[Hg] [facility] Medicine Heart rate 2021-07-30 18:08:00 86 /min [facility] Body temperature 2021-07-30 18:08:00 36.78 [facility] HEIGHT 2021-03-17 15:32:00 167.6 cm WEIGHT [...] kg Systolic blood 2020-12-18 14:11:00 115 mm[Hg] [facility] pressure Medicine Diastolic blood 2020-12-18 14:11:00 56 mm[Hg] [facility] Medicine Heart rate 2020-12-18 14:11:00 92 /min [facility] Respiratory rate 2020-12-18 14:11:00 17 /min [facility] HEIGHT 2020-12-09 21:00:00 167.6 cm WEIGHT [...] of Medici ne colon (procedure) [code = 607723634] Future Scheduled 2021-07-30 Screening for Jameel [facility] of Test 13:08:55 malignant neoplasm of Medici ne breast (procedure) [code = 526127685] Future Scheduled 2021-07-30 COVID-19 Vaccine (1) [facility] of Test 13:08:55 [code = COVID-19 Medicine Vaccine (1)] Future Scheduled 2021-07-30 TETANUS SHOT (ADULT) [facility] of Test 13:08:55 [code = TETANUS SHOT Medicin e (ADULT)] Future Scheduled 2021-07-30 Hepatitis C screening [facility] Test 13:08:55 (procedure) [code = Medicine 536048963] Future Scheduled 2021-07-30 MEDICARE AWV (Initial) [facility] of Test 13:08:55 [code = MEDICARE AWV Medicin e (Initial)] Future Scheduled 2021-07-30 FALL SCREEN [code = [facility] of Test 13:08:55 FALL SCREEN] Medicine Future Scheduled 2021-07-30 Screening for Jameel Col [facility]ge of Test 13:08:55 osteoporosis Medicine (procedure) [code = 820481877] Future Scheduled 2021-07-30 ZOSTER VACCINE (2 of [facility] of Test 13:08:55 2) [code = ZOSTER Medicine VACCINE (2 of 2)] Future Scheduled 2021-07-30 FLU VACCINE > 6 MONTHS B [facility] of Test 13:08:55 [code = FLU VACCINE > Medici ne 6 MONTHS] Future Scheduled COLON CANCER [facility] ege of Test SCREENING: COLONOSCOPY Medic ine [code = COLON CANCER SCREENING: COLONOSCOPY] Future Scheduled COVID-19 Vaccine [facility] of Test Evaluation [code = Medicine COVID-19 Vaccine Evaluation] Future Scheduled MAMMOGRAM ANNUAL [code B [facility] of Test = MAMMOGRAM ANNUAL] Medicine Future Scheduled TETANUS SHOT (ADULT) [facility] of Test [code = TETANUS SHOT Medicin e (ADULT)] Future Scheduled HEPATITIS C SCREENING [facility] Test [code = HEPATITIS C Medicine SCREENING] Future Scheduled MEDICARE AWV (Initial) [facility] Test [code = MEDICARE AWV Medicin e (Initial)] Future Scheduled FALL SCREEN [code = [facility] Test FALL SCREEN] Medicine Future Scheduled OSTEOPOROSIS SCREENING [facility] Test [code = OSTEOPOROSIS Medicin e SCREENING] Future Scheduled ZOSTER VACCINE (2 of [facility] of Test 2) [code = ZOSTER Medicine VACCINE (2 of 2)] Encounters Start End Encounter Admission Attending Care Care Encounter Source Date/Time Date/Time Type Type Clinicians Facility Department ID 2021-07-25 Outpatient TYRONE, [facility] Surgery [id number] [facility] 17:58:27 ADITI 2021-07-25 Outpatient [facility] Surgery [id number] SLE 07:51:27 [facility] 2020-12-09 Inpatient ER [facility] [id number] SLE 20:16:00 [facility] Med 2022-03-29 2022-03-29 Outpatient EL [facility] [id number] SLE 00:00:00 00:00:00 2021-11-23 2021-11-23 Outpatient EL [facility] Surgery [id number] [facility]H 08:55:00 12:10:00 PRASUN 2021-11-18 2021-11-18 Outpatient EL [facility] [id number] SLE 15:05:50 23:59:00 2021-10-15 2021-10-15 Outpatient EL [facility] [id number] SLE 13:19:59 23:59:00 TIMO 2021-10-13 2021-10-13 Outpatient EL HUGO [facility] [id number] SLE 00:00:00 00:00:00 TIMO 2021-09-21 2021-09-21 Outpatient EL HUGO [facility] [id number] SLE 08:26:43 08:26:43 TIMO 2021-08-06 2021-08-06 Outpatient [facility] [id number] [facility] 00:00:00 00:00:00 2021-07-30 2021-07-30 Office JOE MATIAS [id number] [facility] 12:13:14 13:48:55 Visit RAISSA AMBULATOR [id number] College Y [id number] Medi rosi 300 e 2021-07-14 2021-07-14 Outpatient EL [facility] [id number] [facility] 00:00:00 00:00:00 2021-04-16 2021-04-16 Outpatient [facility] [id number] [facility] 00:00:00 00:00:00 2021-03-17 2021-03-17 Emergency ER SLE Emergency [id number] [facility] 15:10:00 15:10:00 2021-03-02 2021-03-02 Emergency ER SLE Emergency [id number] [facility] 10:16:00 10:16:00 2021-02-28 2021-02-28 Emergency ER [facility] Emergency [id number] [facility]H 12:34:00 12:34:00 2021-02-25 2021-02-25 Outpatient EL [facility] [id number] [facility] 00:00:00 00:00:00 2021-02-06 2021-02-06 Outpatient EL HILTONLAL, [facility] [id number] [facility] 00:00:00 00:00:00 PRASUN 2021-02-04 2021-02-04 Outpatient EL [facility] [id number] [facility] 00:00:00 00:00:00 2021-02-04 2021-02-04 Outpatient EL [facility] [id number] [facility] 00:00:00 00:00:00 2021-01-29 2021-01-29 Outpatient EL HILTONLAKwabena, [facility] [id number] [facility] 00:00:00 00:00:00 PRASUN 2021-01-22 2021-01-22 Outpatient EL HILTONLAL, [facility] [id number] [facility] 00:00:00 00:00:00 PRASUN 2021-01-15 2021-01-15 Outpatient EL [facility] [id number] [facility] 00:00:00 00:00:00 2020-12-18 2020-12-18 Office JOE Matias [id number] [facility] 07:46:17 07:56:17 Visit Raissa AMBULATOR [id number] College Y [id number] [facility] [id number] [facility] 300 e 2020-12-05 2020-12-05 Outpatient SLEH SLE [id number] [facility] 00:00:00 00:00:00 2020-11-26 2020-11-26 Emergency ER SLE Emergency [id number] [facility] 08:57:00 08:57:00 2020-10-23 2020-10-23 Emergency ER SLE Emergency [id number] [facility]H 14:38:00 14:38:00 2020-09-27 2020-09-27 Emergency ER SLE Emergency [id number] [facility] 10:04:00 10:04:00 2020-08-06 2020-08-06 Outpatient EL SLE SLE [id number] [facility] 00:00:00 00:00:00 2020-07-30 2020-07-30 Outpatient EL SLE SLE [id number] SLE 00:00:00 00:00:00 2020-07-28 2020-07-28 Outpatient EL SLE SLE [id number] [facility]H 00:00:00 00:00:00 2020-02-14 2020-02-14 Outpatient SLE SLE [id number] [facility] 00:00:00 00:00:00 [id number] Results Test Description Test Time Test Comments Results Result [facility] e Comments TISSUE EXAM 2021-11-25 Surgical Pathology 19:02:37 Report Case: [id number] Authorizing Provider: Obed James MD Collected: 11/23/2021 10:57 AM Ordering Location: [facility] Endoscopy Received: 11/23/2021 03:54 PM Services Pathologist: Clarissa Romo MD Specimen: Stomach, Antrum, random biopsies STOMACH, ANTRUM, BIOPSY: - REACTIVE GASTROPATHY - NO HELICOBACTER PYLORI MICROORGANISM IDENTIFIED BY ROUTINE STAINCC/pl Signing Pathologist Direct Phone Line: [phone] tarah signed by Clarissa Romo MD on 11/25/2021 at 7:02 [id number] varices without bleedingStomach, antrumReceived in formalin labeled the patient's name, accession number and "stomach, antrum" are 4 eng soft tissue fragments measuring up to 0.3 cm in greatest dimension which are filtered and submitted in toto in A1.JO Dumont, HT ([facility])Performed MR, ABDOMEN, WITH 2021-10-20 DR JAMES 12:08:00 Referring: Eric Neal Review [facility], cirrhosis, [facility] hcc screening CENTERName: Unlisted Reason [place]AN[place] SINGLETARY for Exam - Click KEREN : Yes and Enter 1950 Reason Below->No Sex: Anesthesia:->Non F e Deos the patient have an FI implanted NAL REPORT PATIENT electronic ID: [id number] device?->No TECHNIQUE: MRI of the abdomen WITHOUT and WITH intravenous contrast. INDICATION: Unlisted Reason for Exam. Review portal vein thrombosis, cirrhosis, HCC screening COMPARISON: MRI from 02/06/2021. FINDINGS: LOWER THORAX: The increased interstitial T2 weighted signal in the lungs is concerning for fibrosis. LIVER: Nodular, cirrhotic liver. No focal hepatic lesions. BILIARY: Gallbladder is unremarkable. No biliary ductal dilatation or filling defect.SPLEEN: 14.3 cm splenomegaly. Findings of prior splenic infarcts.PANCREAS: No focal masses or ductal dilatation. A cystic lesion in the pancreatic body measures 1.8 cm on coronal T2-weighted image 10, previously 1.5 cm. A cystic lesion in the pancreatic body on axial T2-weighted image 9 measures 0.7 x 1.2 cm, previously 0.9 x 1.8 cm. Otherwise, cystic lesions in the pancreas are essentially unchanged. ADRENALS: No adrenal nodules.KIDNEYS/URETE RS: No hydronephrosis or solid mass lesions. PERITONEUM/RETROPERIT ONEUM: Trace perihepatic ascites.LYMPH NODES: No lymphadenopathy.VESSE LS: The right hepatic artery is replaced from the superior mesenteric artery. There is accessory left hepatic artery from the left gastric artery. A periumbilical vein is recanalized. Moderate atherosclerosis of the abdominal aorta. Small esophageal varices. The main portal vein is patent and measures 1.7 cm in diameter. GI TRACT: No distention or wall thickening. BONES AND SOFT TISSUES: Unremarkable. IMPRESSION: 1.No suspicious focal hepatic lesion. 2.The portal vein thrombus has resolved. 3.Cirrhosis with sequelae of portal hypertension including splenomegaly and small esophageal varices. 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 A cystic lesion in the pancreatic body has mildly increased in size at 1.8 cm, previously 1.5 cm. An additional pancreatic body cystic lesion has decreased in size and measures 0.7 x 1.2 cm, previously 0.9 x 1.8 cm. No nodular component or ductal dilation to suggest malignant transformation. Close attention on follow-up imaging is recommended. 5.Interstitial fibrosis of the lungs. Signed: Tonya aCdena MDReport Verified Date/Time: 10/20/2021 12:08:05 Reading Location: [facility] Diagnostic Imaging Reading Room - [place] [address] A FETOPROTEIN (AFP), TUMOR MARKER 2021-09-21 11:34:32 Test Item Value Reference Range Interpretation Comme nts ALPHA-FETOPROTEIN (BEAKER) (test code = 1094) 3.0 ng/mL <10.0 High Risk Case Manager ID - ALIZA MBASIC METABOLIC [id number] 11:21:11 Test Item Value Reference Range Interpretation Comments SODIUM (BEAKER) 138 meq/L 136-145 (test code = 381) POTASSIUM (BEAKER) 4.4 meq/L 3.5-5.1 (test code = 379) CHLORIDE (BEAKER) 100 meq/L 98-107 (test code = 382) CO2 (BEAKER) (test 30 meq/L 22-29 H code = 355) BLOOD UREA NITROGEN 20 mg/dL 7-21 (BEAKER) (test code = 354) CREATININE (BEAKER) 1.11 mg/dL 0.57-1.25 (test code = 358) GLUCOSE RANDOM 112 mg/dL 70-105 H (BEAKER) (test code = 652) CALCIUM (BEAKER) 8.9 mg/dL 8.4-10.2 (test code = 697) EGFR (BEAKER) (test 48 mL/min/1.73 ESTIMA RABIA GFR IS code = 1092) sq m NOT ACCURATE CREATININE CLEARANCE IN PREDICTING GLOMERULAR FILTRATION RATE . ESTIMATED GFR I S NOT APPLICABLE FOR DIALYSIS PATIEN TS. High Risk Case Manager ID - ALIZA Alfaroecimen slightly ictericHEPATIC FUNCTION [id number] 11:21:11 Test Item Value Reference Range Interpretation Comments TOTAL PROTEIN (BEAKER) (test code = 7.2 gm/dL 6.0-8.3 770) ALBUMIN (BEAKER) (test code = 1145) 2.8 g/dL 3.5-5.0 L BILIRUBIN TOTAL (BEAKER) (test code 1.5 mg/dL 0.2-1.2 H = 377) BILIRUBIN DIRECT (BEAKER) (test 0.6 mg/dL 0.1-0.5 H code = 706) ALKALINE PHOSPHATASE (BEAKER) (test 149 U/L 40-150 code = 346) AST (SGOT) (BEAKER) (test code = 28 U/L 5-34 353) ALT (SGPT) (BEAKER) (test code = 14 U/L 6-55 347) High Risk Case Manager WENDY Ayoubimen slightly ictericPROTHROMBIN [id number] 11:06:41 Test Item Value Reference Range Interpretation Comments PROTIME (BEAKER) 15.8 seconds 11.9-14.2 H (test code = 759) INR (BEAKER) (test 1.28 See_Comment [Automat ed message] code = 370) The system Whi generated this result transmitted ref erence range: <=5.90. The reference range was not used to int erpret this result as normal/abnormal . RECOMMENDED COUMADIN/WARFARIN INR THERAPY RANGESSTANDARD DOSE: 2.0 - 3.0 Includes: PROPHYLAXIS forvenous thrombosis, systemic embolization; TREATMENT for venous thrombosis and/or pulmonary embolus.HIGH RISK: Target INR is 2.5-3.5 for patients with mechanical heart valves.CBC W/PLT COUNT & AUTO DIFFERENTIAL 2021-09-21 10:58:04 Test Item Value Reference Range Interpretation Comments WHITE BLOOD CELL COUNT (BEAKER) 5.2 K/ L 3.5-10.5 (test code = 775) RED BLOOD CELL COUNT (BEAKER) 3.54 M/ L 3.93-5.22 L (test code = 761) HEMOGLOBIN (BEAKER) (test code = 9.9 GM/DL 11.2-15.7 L 410) HEMATOCRIT (BEAKER) (test code = 33.0 % 34.1-44.9 L 411) MEAN CORPUSCULAR VOLUME (BEAKER) 93.2 fL 79.4-94.8 (test code = 753) MEAN CORPUSCULAR HEMOGLOBIN 28.0 pg 25.6-32.2 (BEAKER) (test code = 751) MEAN CORPUSCULAR HEMOGLOBIN CONC 30.0 GM/DL 32.2-35.5 L (BEAKER) (test code = 752) RED CELL DISTRIBUTION WIDTH 18.9 % 11.7-14.4 H (BEAKER) (test code = 412) PLATELET COUNT (BEAKER) (test code 78 K/CU MM 150-450 L = 756) MEAN PLATELET VOLUME (BEAKER) 11.8 fL 9.4-12.3 (test code = 754) NUCLEATED [...] (test code = 437) NEUTROPHILS ABSOLUTE COUNT 3.83 K/ L 1.56-6.13 (BEAKER) (test code = 670) LYMPHOCYTES ABSOLUTE COUNT 0.78 K/ L 1.18-3.74 L (BEAKER) (test code = 414) MONOCYTES ABSOLUTE COUNT (BEAKER) 0.42 K/ L 0.24-0.36 H (test code = 415) EOSINOPHILS ABSOLUTE COUNT 0.09 K/ L 0.04-0.36 (BEAKER) (test code = 416) BASOPHILS ABSOLUTE COUNT (BEAKER) 0.02 K/ L 0.01-0.08 (test code = 417) IMMATURE GRANULOCYTES-RELATIVE 0 % 0-1 PERCENT (HAO) (test code = 2801) RAD, CHEST, 1 VIEW, NON [id number] 21:17:00DR Priscillaerring: Dr. Eric Morel for exam:->[facility] : 1950 Sex: FFINAL REPORT INDICATION: WHEEZING COMPARISON: 12/10/2020 TECHNIQUE: Single frontal view of the chest. IMPRESSION: Lungs and pleura: Hazy bilateral interstitial opacities similar to prior compatible with interstitial lung disease. No superimposed consolidation. Trace bilateral pleural effusions.Heart and mediastinum: Normal heart size. Unremarkable mediastinal contours.Osseous structures: No acute abnormality.Other: None. Signed: Jersey Galicia MDReport Verified Date/Time: 03/17/2021 21:17:55 HIGH SENSITIVITY TROPONIN [id number] 20:30:00 Test Item Value Reference Range Interpretation Comments HIGH SENSITIVITY 10 pg/ml See_Comment [Automated message] TROPONIN I (test code = The system which [id number]) generated this result transmitted ref erence range: <=17. Th e reference range was not used to int erpret this result as normal/abnormal . High Risk Case Manager ID - BSThe BUSINESS INTEGRATION ANALYST STAT High Sensitivity Troponin-I results should be used in conjunctionwith other diagnostic information such as ECG, clinical observations and information, and patient symptoms to aid in the diagnosis of [place].[id number] 20:26:00 Test Item Value Reference Range Interpretation Comments MAGNESIUM (HAO) (test code = 1.9 mg/dL 1.6-2.6 627) High Risk Case Manager ID - BSBASIC METABOLIC [id number] 20:26:00 Test Item Value Reference Range Interpretation [...] S NOT APPLICABLE FOR DIALYSIS PATIEN TS. High Risk Case Manager ID - BSSpecimen slightly ictericCBC W/PLT [...] (BEAKER) (test code = 2801) COMPREHENSIVE METABOLIC [id number] 06:35:00 Test Item Value Reference Range Interpretation [...] S NOT APPLICABLE FOR DIALYSIS PATIEN TS. High Risk Case Manager ID - ALIZA [id number] 06:35:00 Test Item Value Reference Range Interpretation Comments MAGNESIUM (BEAKER) (test code = 2.0 mg/dL 1.6-2.6 627) High Risk Case Manager ID - ALIZA MPROTHROMBIN [id number] 06:12:00 Test Item Value Reference Range Interpretation Comments PROTIME (BEAKER) 18.1 seconds 11.9-14.2 H (test code = 759) INR (BEAKER) (test 1.56 See_Comment [Automat ed message] code = 370) The system Whi generated this result transmitted ref erence range: [...] PERCENT (BEAKER) (test code = 2801) PROTHROMBIN [id number] 04:57:00 Test Item Value Reference Range Interpretation Comments PROTIME (BEAKER) 19.0 seconds 11.9-14.2 H (test code = 759) INR (BEAKER) (test 1.64 See_Comment [Automat ed message] code = 370) The system Whi generated this result transmitted ref erence range: <=5.90. The reference range was not used to int erpret this result as normal/abnormal . RECOMMENDED COUMADIN/WARFARIN INR THERAPY RANGESSTANDARD DOSE: 2.0 - 3.0 Includes: PROPHYLAXIS forvenous thrombosis, systemic embolization; TREATMENT for venous thrombosis and/or pulmonary embolus.HIGH RISK: Target INR is 2.5-3.5 for patients with mechanical heart valves.COMPREHENSIVE METABOLIC [id number] 04:51:00 Test Item Value Reference Range Interpretation [...] S NOT APPLICABLE FOR DIALYSIS PATIEN TS. High Risk Case Manager ID - ALIZA [id number] 04:51:00 Test Item Value Reference Range Interpretation Comments MAGNESIUM (BEAKER) (test code = 2.2 mg/dL 1.6-2.6 627) High Risk Case Manager ID - ALIZA MCBC W/PLT COUNT & AUTO [id number] 04:32:00 Test Item Value Reference Range Interpretation [...] (BEAKER) (test code = 2801) COMPREHENSIVE METABOLIC [id number] 04:29:00 Test Item Value Reference Range Interpretation [...] S NOT APPLICABLE FOR DIALYSIS PATIEN TS. High Risk Case Manager ID - [id number] 04:29:00 Test Item Value Reference Range Interpretation Comments MAGNESIUM (BEAKER) (test code = 2.1 mg/dL 1.6-2.6 627) High Risk Case Manager ID - ADMINCBC W/PLT COUNT & AUTO [id number] 04:04:00 Test Item Value Reference Range Interpretation [...] (BEAKER) (test code = 2801) COMPREHENSIVE METABOLIC [id number] 06:26:00 Test Item Value Reference Range Interpretation [...] S NOT APPLICABLE FOR DIALYSIS PATIEN TS. High Risk Case Manager ID Shakir ABRAMS [id number] 06:26:00 Test Item Value Reference Range Interpretation Comments MAGNESIUM (BEAKER) (test code = 2.1 mg/dL 1.6-2.6 627) High Risk Case Manager ID - ALIZA MCBC W/PLT COUNT & AUTO [id number] 05:06:00 Test Item Value Reference Range Interpretation [...] 0-1 PERCENT (BEAKER) (test code = 2801) [id number] 07:39:00 Test Item Value Reference Range Interpretation Comments MAGNESIUM (BEAKER) 2.0 mg/dL 1.6-2.6 Specimen moderately (test code = 627) hemolyzed High Risk Case Manager ID - EDASICOMPREHENSIVE METABOLIC [id number] 07:39:00 Test Item Value Reference Range Interpretation [...] S NOT APPLICABLE FOR DIALYSIS PATIEN TS. High Risk Case Manager ID - EDASICBC W/PLT COUNT & AUTO [id number] 07:16:00 Test Item Value Reference Range Interpretation [...] PERCENT (BEAKER) (test code = 2801) PROTHROMBIN TIME/[id number] 07:08:00 Test Item Value Reference Range Interpretation Comments PROTIME (BEAKER) 20.0 seconds 11.9-14.2 H (test code = 759) INR (BEAKER) (test 1.75 See_Comment [Automat ed message] code = 370) The system Whi generated this result transmitted ref erence range: <=5.90. The reference range was not used to int erpret this result as normal/abnormal . RECOMMENDED COUMADIN/WARFARIN INR THERAPY RANGESSTANDARD DOSE: 2.0 - 3.0 Includes: PROPHYLAXIS forvenous thrombosis, systemic embolization; TREATMENT for venous thrombosis and/or pulmonary embolus.HIGH RISK: Target INR is 2.5-3.5 for patients with mechanical heart valves.BODY FLUID CULTURE + GRAM [id number] 14:00:00 Test Item Value Reference Range Interpretation Comments CULTURE (BEAKER) (test code No growth = 1095) GRAM STAIN RESULT (BEAKER) 2+ WBCs (test code = 1123) GRAM STAIN RESULT (BEAKER) No organisms seen (test code = 550873) URINALYSIS W/ [id number] 09:34:00 Test Item Value Reference Range Interpretation [...] = 516) SOURCE(BEAKER) (test code = 2795) High Risk Case Manager ID - [auto]High Risk Case Manager ID - techPROTEIN, RANDOM [id number] 09:05:00 Test Item Value Reference Range Interpretation Comments PROTEIN, URINE (BEAKER) (test code = < mg/dL 0-14 1569) High Risk Case Manager ID - AAHAMIDCREATININE, RANDOM [id number] 08:44:00 Test Item Value Reference Range Interpretation [...] S NOT APPLICABLE FOR DIALYSIS PATIEN TS. High Risk Case Manager ID - ALIZA [id number] 05:59:00 Test Item Value Reference Range Interpretation Comments MAGNESIUM (BEAKER) (test code = 1.8 mg/dL 1.6-2.6 627) High Risk Case Manager ID - ALIZA [id number] 05:59:00 Test Item Value Reference Range Interpretation Comments PHOSPHORUS (BEAKER) (test code = 2.5 mg/dL 2.3-4.7 604) High Risk Case Manager ID - ALIZA MB-TYPE NATRIURETIC FACTOR (BNP)2021-03-05 04:42:00 Test Item Value Reference Range Interpretation Comments B-TYPE NATRIURETIC PEPTIDE (BEAKER) 114 pg/mL 0-100 H (test code = 700) High Risk Case Manager ID - KIMBERLYDENY LSARS-COV2/RT-PCR ([facility])2021-03-03 19:44:00 Test Item Value Reference Range Interpretation Comments SARS-COV2/RT-PCR (test Negative Not Detected, Negative, code = 1002941) See external report for linked test SARS-COV-2 PERFORMING LAB [facility] DENITA (test code = 7095061) Negative result for this test determines that [...] the Cheema SARS-CoV-2 assay.Fact Sheet for Healthcare Providers:https://www.eventuosity.cheema/derrick/ IY_BYWN-XqB-9_REA_Qvvj_Rbrmf_72-044522.pdfFact Sheet for Healthcare Patients:https://www.eventuosity.ab lauryn/derrick/DR_EHPP-KaD-2_Jzjvsth_Zekm_Ndjca_JH_76-155189U9.pdfPerforming Laboratory:[place] [address] [address] [address] PROTEIN, BODY [id number] 10:21:00 Test Item Value Reference Range Interpretation Comments PROTEIN FLUID (BEAKER) (test code = 0.9 g/dL 579) Absence of reference range indicates that normals have not been defined.Assay performance has not been validated for this type of specimen.High Risk Case Manager ID - verf26RIERUOO DEHYDROGENASE (LDH), BODY [id number] 09:59:00 Test Item Value Reference Range Interpretation Comments LACTATE DEHYDROGENASE FLUID (BEAKER) 53 U/L (test code = 634) Absence of reference range indicates that normals have not been defined.Assay performance has not been validated for this type of specimen.High Risk Case Manager ID - ercp12ZWLCOWHVF7208-40-56 04:33:00 Test Item Value Reference Range Interpretation Comments MAGNESIUM (BEAKER) 1.8 mg/dL 1.6-2.6 Specimen slightly (test code = 627) hemolyzed High Risk Case Manager ID - ALIZA MBASIC METABOLIC [id number] 04:33:00 Test Item Value Reference Range Interpretation [...] 697) EGFR (BEAKER) (test 64 mL/min/1.73 ESTIMA RBAIA GFR IS code = 1092) sq m NOT ACCURATE CREATININE CLEARANCE IN PREDICTING GLOMERULAR FILTRATION RATE . ESTIMATED GFR I S NOT APPLICABLE FOR DIALYSIS PATIEN TS. High Risk Case Manager ID - ALIZA MSpecimen slightly ictericHEPATIC FUNCTION [id number] 04:33:00 Test Item Value Reference Range Interpretation [...] Specimen slightly (test code = 347) hemolyzed High Risk Case Manager WENDY ABRAMS MSpecimen slightly ictericPROTHROMBIN TIME/[id number] 04:26:00 Test Item Value Reference Range Interpretation Comments PROTIME (BEAKER) 17.4 seconds 11.9-14.2 H (test code = 759) INR (BEAKER) (test 1.47 See_Comment [Automat ed message] code = 370) The system Whi generated this result transmitted ref erence range: [...] mechanical heart valves.CBC W/PLT COUNT & AUTO [id number] 04:13:00 Test Item Value Reference Range Interpretation [...] code = 2801) URINALYSIS W/ REFLEX URINE [id number] 01:51:00 Test Item Value Reference Range Interpretation [...] code = 1584) SOURCE(BEAKER) (test code = 3815) High Risk Case Manager ID - [auto]High Risk Case Manager ID - techB-TYPE NATRIURETIC FACTOR (BNP)2021-03-03 00:25:00 Test Item Value Reference Range Interpretation Comments B-TYPE NATRIURETIC PEPTIDE (BEAKER) 140 pg/mL 0-100 H (test code = 700) High Risk Case Manager ID - DBBODY FLUID CELL COUNT WITH [id number] 19:42:00 Test Item Value Reference Range Interpretation [...] Tube (BEAKER) (test code = 2873) U/S, [id number] 18:21:00DR GOLDYeferring: Dr. Eric Lindseyabs to be ordered:->Body Fluid Culture (w/Gram Stain, C\\T\\S)Labsto be ordered:- >Glucose+LDH+ProteinLabs to be ordered:->Cell CountReason for exam:- >[facility]CH[facility] : 1950 Sex: FFINAL REPORT Ultrasound guided paracentesis, 03/02/2021. Clini nathan History: Ascites. Sedation: None. Brine Room Laborer: Tracie. Conservation Engineer: None. Estimated Blood Loss: < 1 cc. [...] was achieved with 1% lidocaine, a 5 Swedish one-step catheter was advanced into the peritoneal cavity under ultrasound guidance. After completion of drainage, the catheter was removed. There was no evidence of complication. Patient Disposition: The patient was discharged from the ultrasound department after the paracentesis, in good condition. Impression:Successful ultrasound guided paracentesis. Signed:Jordon Martinez Verified Date/Time: 03/02/2021 18:21:14 Reading Location: [place] [address] [facility] Reading Room BASIC METABOLIC [id number] 15:12:00 Test Item Value Reference Range Interpretation [...] S NOT APPLICABLE FOR DIALYSIS PATIEN TS. High Risk Case Manager ID - DBSpecimen slightly ictericHEPATIC FUNCTION [id number] 15:12:00 Test Item Value Reference Range Interpretation [...] (test code = 13 U/L 6-55 347) High Risk Case Manager ID - DBSrustam kim [id number] 15:08:00 Test Item Value Reference Range Interpretation Comments PARTIAL THROMBOPLASTIN TIME 36.1 seconds 22.5-36.0 H (BEAKER) (test code = 760) PROTHROMBIN TIME/[id number] 15:07:00 Test Item Value Reference Range Interpretation Comments PROTIME (BEAKER) 17.3 seconds 11.9-14.2 H (test code = 759) INR (BEAKER) (test 1.46 See_Comment [Automat ed message] code = 370) The system Whi generated this result transmitted ref erence range: [...] mechanical heart valves.CBC W/PLT COUNT & AUTO [id number] 14:53:00 Test Item Value Reference Range Interpretation [...] (BEAKER) (test code = 2801) COMPREHENSIVE METABOLIC [id number] 14:28:00 Test Item Value Reference Range Interpretation [...] S NOT APPLICABLE FOR DIALYSIS PATIEN TS. High Risk Case Manager ID - EDASIPROTHROMBIN TIME/[id number] 14:14:00 Test Item Value Reference Range Interpretation Comments PROTIME (BEAKER) 17.1 seconds 11.9-14.2 H (test code = 759) INR (BEAKER) (test 1.43 See_Comment [Automat ed message] code = 370) The system Whi generated this result transmitted ref erence range: [...] mechanical heart valves.CBC W/PLT COUNT & AUTO [id number] 14:10:00 Test Item Value Reference Range Interpretation [...] % 0-1 PERCENT (BEAKER) (test code = 280) MR, ABDOMEN, [id number] 11:27:00DR JAMES Referring: Dr. Eric Neal LIVER PROTOCOL PLEASE FAX RESULTS TO OMI WALL NP AT [phone]. LIVER PROTOCOL PLEASE FAX RESULTS TO OMI WALL NP AT [phone]. [facility] : 1950 Sex: FFINAL [...] 1.1 cm, are unchanged. Signed: Sheron Aranda MDReport Verified Date/Time: 02/09/2021 11:27:04 Reading Location: [facility] Diagnostic Imaging Reading Room - [place] [address] ALPHA FETOPROTEIN (AFP), TUMOR [id number] 13:26:00 Test Item Value Reference Range Interpretation Comments ALPHA-FETOPROTEIN (BEAKER) (test 2.1 ng/mL <10.0 code = 1094) High Risk Case Manager ID Shakir MADAY FBASIC METABOLIC [id number] 13:09:00 Test Item Value Reference Range Interpretation [...] S NOT APPLICABLE FOR DIALYSIS PATIEN TS. High Risk Case Manager ID Shakir OLSEN FSpecimen slightly ictericHEPATIC FUNCTION PANEL 2021-02-04 13:09:00 Test [...] (test code = 16 U/L 6-55 347) High Risk Case Manager ID - MADAY FSpecimen slightly ictericPROTHROMBIN TIME/[id number] 13:03:00 Test Item Value Reference Range Interpretation Comments PROTIME (BEAKER) 17.1 seconds 11.9-14.2 H (test code = 759) INR (BEAKER) (test 1.43 See_Comment [Automat ed message] code = 370) The system Whi generated this result transmitted ref erence range: [...] mechanical heart valves.CBC W/PLT COUNT & AUTO [id number] 12:39:00 Test Item Value Reference Range Interpretation [...] PERCENT (BEAKER) (test code = 2801) BLOOD [id number] 00:00:00 Test Item Value Reference Range Interpretation Comments CULTURE (BEAKER) (test No growth in 5 days code = 1095) POCT-GLUCOSE [id number] 17:00:00 Test Item Value Reference Range Interpretation Comments POC-GLUCOSE METER 154 mg/dL 70-110 H : TESTED A T [facility] 6720 (BEAKER) (test code = EDI JETT [place], 1538) [address]: High Risk Case Manager/Techni juan antonio ID = [id number] for OR COLEMAN EDMONDS POCT-GLUCOSE [id number] 11:33:00 Test Item Value Reference Range Interpretation Comments POC-GLUCOSE METER 126 mg/dL 70-110 H : TESTED A T [facility] 6720 (BEAKER) (test code = EDI Hines [facility], 1538) [address]: High Risk Case Manager/Techni juan antonio ID = [id number] for OR COLEMAN EDMONDS BLOOD [id number] 09:00:00 Test Item Value Reference Range Interpretation Comments CULTURE (BEAKER) (test No growth in 5 days code = 1095) POCT-GLUCOSE [id number] 08:14:00 Test Item Value Reference Range Interpretation Comments POC-GLUCOSE METER 97 mg/dL 70-110 : TESTED A T [facility] 6720 (BEAKER) (test code = [facility], 1538) [address]: High Risk Case Manager/Techni juan antonio ID = [id number] for COLEMAN KRAFT COMPREHENSIVE METABOLIC [id number] 05:20:00 Test Item Value Reference Range Interpretation [...] S NOT APPLICABLE FOR DIALYSIS PATIEN TS. High Risk Case Manager ID - ALIZA MSpecimen slightly ictericCBC W/PLT COUNT & AUTO [id number] 04:42:00 Test Item Value Reference Range Interpretation [...] 0-1 PERCENT (BEAKER) (test code = 2801) [id number] 04:34:00 Test Item Value Reference Range Interpretation Comments PARTIAL THROMBOPLASTIN TIME 41.4 seconds 22.5-36.0 H (BEAKER) (test code = 760) PROTHROMBIN [id number] 04:33:00 Test Item Value Reference Range Interpretation Comments PROTIME (BEAKER) 18.5 seconds 11.9-14.2 H (test code = 759) INR (BEAKER) (test 1.59 See_Comment [Automat ed message] code = 370) The system Whi generated this result transmitted ref erence range: <=5.90. The reference range was not used to int erpret this result as normal/abnormal . Effective 03/14/2019: PT Reference Range ChangeNew: 11.9-14.2 Previous: 11.7- 14.7RECOMMENDED COUMADIN/WARFARIN INR THERAPY RANGESSTANDARD DOSE: 2.0-3.0 Includes: PROPHYLAXIS for venous thrombosis, systemic embolization; TREATMENT for venous thrombosis and/or pulmonary embolus.HIGH RISK: Target INR is2.5-3.5 for patients wiht mechanical heart valves.POCT-GLUCOSE [id number] 20:49:00 Test Item Value Reference Range Interpretation Comments POC-GLUCOSE METER 182 mg/dL 70-110 H : TESTED Bereket Capri [facility] 6720 (BEAKER) (test code = VERAREBEKAH JETT [place], 1538) [address]: High Risk Case Manager/Techni juan antonio ID = [id number] for REGGIE RICHARD POCT-GLUCOSE [id number] 17:45:00 Test Item Value Reference Range Interpretation Comments POC-GLUCOSE METER 136 mg/dL 70-110 H : TESTED A T [facility] 6720 (BEAKER) (test code = [facility], 1538) [address]: High Risk Case Manager/Techni juan antonio ID = [id number] for Lu Mcrae POCT-GLUCOSE [id number] 11:31:00 Test Item Value Reference Range Interpretation Comments POC-GLUCOSE METER 142 mg/dL 70-110 H : TESTED A T [facility] 6720 (BEAKER) (test code = [facility], 1538) [address]: High Risk Case Manager/Techni juan antonio ID = [id number] for Lu Mcrae POCT-GLUCOSE [id number] 08:36:00 Test Item Value Reference Range Interpretation Comments POC-GLUCOSE METER 93 mg/dL 70-110 : TESTED A T [facility] 6720 (BEAKER) (test code = [facility], 1538) [address]: High Risk Case Manager/Techni juan antonio ID = [id number] for CHINO MUNOZ COMPREHENSIVE METABOLIC [id number] 06:31:00 Test Item Value Reference Range Interpretation [...] L (test code = 697) AST (SGOT) (HANNAAKER) 28 U/L 5-34 (test code = 353) ALT (SGPT) (HANNAAKER) 24 U/L 6-55 (test code = 347) EGFR (BEAKER) (test 53 mL/min/1.73 ESTIMA RABIA GFR IS code = 1092) sq m NOT ACCURATE CREATININE CLEARANCE IN PREDICTING GLOMERULAR FILTRATION RATE . ESTIMATED GFR I S NOT APPLICABLE FOR DIALYSIS PATIEN TS. High Risk Case Manager ID - ALIZA MSpecimen slightly ictericU/S, RENAL, [id number] 06:29:00DR JALALReferring: Dr. Eric Morel for exam:->JOSE MANUEL left hydronephrosisAD[facility]Name[facility] : 1950 Sex: FFINAL [...] upper quadrant ascites.Liver cirrhosis. Signed: Amy Villavicencio MDReport Verified Date/Time: 12/14/2020 06:29:34 PROTHROMBIN TIME/[id number] 06:09:00 Test Item Value Reference Range Interpretation Comments PROTIME (BEAKER) 19.3 seconds 11.9-14.2 H (test code = 759) INR (BEAKER) (test 1.67 See_Comment [Automat ed message] code = 370) The system Whi generated this result transmitted ref erence range: <=5.90. The reference range was not used to int erpret this result as normal/abnormal . Effective 03/14/2019: PT Reference Range ChangeNew: 11.9-14.2 Previous: 11.7- 14.7RECOMMENDED COUMADIN/WARFARIN INR THERAPY RANGESSTANDARD DOSE: 2.0-3.0 Includes: PROPHYLAXIS for venous thrombosis, systemic embolization; TREATMENT for venous thrombosis and/or pulmonary embolus.HIGH RISK: Target INR is2.5-3.5 for patients wiht mechanical heart valves.[id number] 06:09:00 Test Item Value Reference Range Interpretation Comments PARTIAL THROMBOPLASTIN TIME 44.9 seconds 22.5-36.0 H (BEAKER) (test code = 760) CBC W/PLT COUNT & AUTO [id number] 06:05:00 Test Item Value Reference Range Interpretation [...] PERCENT (BEAKER) (test code = 2801) POCT-GLUCOSE [id number] 21:09:00 Test Item Value Reference Range Interpretation Comments POC-GLUCOSE METER 180 mg/dL 70-110 H : TESTED A T [facility] 6720 (BEAKER) (test code = EDI PAINTER, 1538) 42[address]: High Risk Case Manager/Techni juan antonio ID = [id number] for KATIE LOO POCT-GLUCOSE [id number] 18:29:00 Test Item Value Reference Range Interpretation Comments POC-GLUCOSE METER 120 mg/dL 70-110 H : TESTED A T [facility] 67[address] (BEAKER) (test code = [facility], 1538) [address]: High Risk Case Manager/Techni juan antonio ID = [id number] for Lu Mcrae POCT-GLUCOSE [id number] 12:18:00 Test Item Value Reference Range Interpretation Comments POC-GLUCOSE METER 106 mg/dL 70-110 : TESTED A T [facility] 6720 (BEAKER) (test code = [facility], 1538) 40108: High Risk Case Manager/Techni juan antonio ID = [id number] for Lu Mcrae POCT-GLUCOSE [id number] 09:32:00 Test Item Value Reference Range Interpretation Comments POC-GLUCOSE METER 94 mg/dL 70-110 : TESTED A T [facility] 6720 (BEAKER) (test code = [facility], [facility]8) [address]: High Risk Case Manager/Techni juan antonio ID = [id number] for CHINO MUNOZ POCT-GLUCOSE [id number] 06:00:00 Test Item Value Reference Range Interpretation Comments POC-GLUCOSE METER 124 mg/dL 70-110 H : TESTED A T [facility] 6720 (BEAKER) (test code = [facility], [facility]8) [address]15: High Risk Case Manager/Techni juan antonio ID = [id number] for YONI DOLAN COMPREHENSIVE METABOLIC [id number] 02:50:00 Test Item Value Reference Range Interpretation [...] S NOT APPLICABLE FOR DIALYSIS PATIEN TS. High Risk Case Manager ID - ALIZA MSpecimen slightly ictericPROTHROMBIN TIME/[id number] 02:41:00 Test Item Value Reference Range Interpretation Comments PROTIME (BEAKER) 19.5 seconds 11.9-14.2 H (test code = 759) INR (BEAKER) (test 1.70 See_Comment [Automat ed message] code = 370) The system Whi generated this result transmitted ref erence range: <=5.90. The reference range was not used to int erpret this result as normal/abnormal . Effective 03/14/2019: PT Reference Range ChangeNew: 11.9-14.2 Previous: 11.7- 14.7RECOMMENDED COUMADIN/WARFARIN INR THERAPY RANGESSTANDARD DOSE: 2.0-3.0 Includes: PROPHYLAXIS for venous thrombosis, systemic embolization; TREATMENT for venous thrombosis and/or pulmonary embolus.HIGH RISK: Target INR is2.5-3.5 for patients wiht mechanical heart valves.[id number] 02:41:00 Test Item Value Reference Range Interpretation Comments PARTIAL THROMBOPLASTIN TIME 45.0 seconds 22.5-36.0 H (BEAKER) (test code = 760) CBC W/PLT COUNT & AUTO [id number] 02:28:00 Test Item Value Reference Range Interpretation [...] (BEAKER) (test code = 2801) HEMOGLOBIN AND [id number] 02:16:00 Test Item Value Reference Range Interpretation Comments HEMOGLOBIN (BEAKER) (test code = 8.2 GM/DL 11.2-15.7 L 410) HEMATOCRIT (BEAKER) (test code = 26.3 % 34.1-44.9 L 411) POCT-GLUCOSE [id number] 23:32:00 Test Item Value Reference Range Interpretation Comments POC-GLUCOSE METER 127 mg/dL 70-110 H : TESTED A T [facility] 6720 (BEAKER) (test code = [facility], 1538) [address]: High Risk Case Manager/Techni juan antonio ID = [id number] for KATIE LOO HEMOGLOBIN AND [id number] 18:28:00 Test Item Value Reference Range Interpretation Comments HEMOGLOBIN (BEAKER) (test code = 8.2 GM/DL 11.2-15.7 L 410) HEMATOCRIT (BEAKER) (test code = 26.7 % 34.1-44.9 L 411) High Risk Case Manager ID - [id number] ID - [id number]-GLUCOSE [id number] 17:02:00 Test Item Value Reference Range Interpretation Comments POC-GLUCOSE METER 139 mg/dL 70-110 H : TESTED A T [facility] 6720 (BEAKER) (test code [facility], = 1538) 00746: High Risk Case Manager/Techni juan antonio ID = [id number] for TSEG GAI, TSIGHEREDA POCT-GLUCOSE [id number] 13:03:00 Test Item Value Reference Range Interpretation Comments POC-GLUCOSE METER 129 mg/dL 70-110 H : TESTED A T [facility] 6720 (BEAKER) (test code [facility], = 1538) 33226: High Risk Case Manager/Techni juan antonio ID = [id number] for TSEG GAI, TSIGHEREDA HEMOGLOBIN AND [id number] 09:35:00 Test Item Value Reference Range Interpretation Comments HEMOGLOBIN (BEAKER) (test code = 8.9 GM/DL 11.2-15.7 L 410) HEMATOCRIT (BEAKER) (test code = 29.1 % 34.1-44.9 L 411) High Risk Case Manager ID - [id number]-GLUCOSE [id number] 08:43:00 Test Item Value Reference Range Interpretation Comments POC-GLUCOSE METER 96 mg/dL 70-110 : TESTED A T [facility] 6720 (BEAKER) (test code [facility], = 1538) 50160: High Risk Case Manager/Techni juan antonio ID = [id number] for KUMAR COBOS CBC W/PLT COUNT & AUTO [id number] 07:28:00 Test Item Value Reference Range Interpretation [...] (BEAKER) (test code = 2801) COMPREHENSIVE METABOLIC [id number] 07:12:00 Test Item Value Reference Range Interpretation [...] S NOT APPLICABLE FOR DIALYSIS PATIEN TS. High Risk Case Manager ID - PIAYA LSpecimen slightly [id number] 07:09:00 Test Item Value Reference Range Interpretation Comments MAGNESIUM (BEAKER) (test code = 1.7 mg/dL 1.6-2.6 627) High Risk Case Manager ID - PIDENY [id number] 07:09:00 Test Item Value Reference Range Interpretation Comments PHOSPHORUS (BEAKER) (test code = 2.5 mg/dL 2.3-4.7 604) High Risk Case Manager ID - MURALI LPROTHROMBIN TIME/[id number] 06:59:00 Test Item Value Reference Range Interpretation Comments PROTIME (BEAKER) 19.8 seconds 11.9-14.2 H (test code = 759) INR (BEAKER) (test 1.73 See_Comment [Automat ed message] code = 370) The system Whi generated this result transmitted ref erence range: <=5.90. The reference range was not used to int erpret this result as normal/abnormal . Effective 03/14/2019: PT Reference Range ChangeNew: 11.9-14.2 Previous: 11.7- 14.7RECOMMENDED COUMADIN/WARFARIN INR THERAPY RANGESSTANDARD DOSE: 2.0-3.0 Includes: PROPHYLAXIS for venous thrombosis, systemic embolization; TREATMENT for venous thrombosis and/or pulmonary embolus.HIGH RISK: Target INR is2.5-3.5 for patients wiht mechanical heart valves.[id number] 06:59:00 Test Item Value Reference Range Interpretation Comments PARTIAL THROMBOPLASTIN TIME 47.3 seconds 22.5-36.0 H (BEAKER) (test code = 760) CALCIUM, [id number] 06:46:00 Test Item Value Reference Range Interpretation Comments CALCIUM IONIZED (BEAKER) (test 1.09 mmol/L 1.12-1.27 L code = 698) PH, BLOOD (BEAKER) (test code = 7.40 1810) POCT-GLUCOSE [id number] 05:56:00 Test Item Value Reference Range Interpretation Comments POC-GLUCOSE METER 93 mg/dL 70-110 : TESTED A T [facility] 6720 (BEAKER) (test code = EDI PAINTER, 1538) 88517: High Risk Case Manager/Techni juan antonio ID = [id number] for YONI PUGH POCT-GLUCOSE [id number] 17:37:00 Test Item Value Reference Range Interpretation Comments POC-GLUCOSE METER 143 mg/dL 70-110 H : TESTED A T [facility] 6720 (BEAKER) (test code = EDI JETT [place], 1538) 79866: High Risk Case Manager/Techni juan antonio ID = [id number] for Katelynn Dempsey HEMOGLOBIN AND [id number] 16:53:00 Test Item Value Reference Range Interpretation Comments HEMOGLOBIN (BEAKER) (test code = 6.4 GM/DL 11.2-15.7 L 410) HEMATOCRIT (BEAKER) (test code = 21.4 % 34.1-44.9 L 411) High Risk Case Manager ID - [id number] W/PLT COUNT & AUTO [id number] 13:07:00 Test Item Value Reference Range Interpretation [...] to report due WIDTH (BEAKER) (test to [facility] RBC code = 412) population distribution. PLATELET [...] CONCENTRATION Decreased (CELLAVISION)(BEAKER) (test code = 3438) High Risk Case Manager ID - Maday Lazar comments: Slide comments:POCT-GLUCOSE METER 2020-12-11 12:23:00 Test Item Value Reference Range Interpretation Comments POC-GLUCOSE METER 159 mg/dL 70-110 H : TESTED A T [facility] 6720 (BEAKER) (test code = EDI JETT ND, 1538) [id number]: High Risk Case Manager/Techni juan antonio ID = [id number] for Katelynn Dempsey [id number] 07:14:00 Test Item Value Reference Range Interpretation Comments MAGNESIUM (BEAKER) (test code = 2.0 mg/dL 1.6-2.6 627) High Risk Case Manager ID - MURALI [id number] 07:14:00 Test Item Value Reference Range Interpretation Comments PHOSPHORUS (BEAKER) (test code = 2.7 mg/dL 2.3-4.7 604) High Risk Case Manager ID - MURALI LCOMPREHENSIVE METABOLIC [id number] 07:14:00 Test Item Value Reference Range Interpretation [...] S NOT APPLICABLE FOR DIALYSIS PATIEN TS. High Risk Case Manager ID - MURALI LSpecimen slightly ictericB-TYPE NATRIURETIC FACTOR (BNP) 2020-12-11 07:11:00 Test Item Value Reference Range Interpretation Comments B-TYPE NATRIURETIC PEPTIDE (BEAKER) 192 pg/mL 0-100 H (test code = 700) High Risk Case Manager ID - MURALI LCALCIUM, [id number] 06:57:00 Test Item Value Reference Range Interpretation Comments CALCIUM IONIZED (BEAKER) (test 1.08 mmol/L 1.12-1.27 L code = 698) PH, BLOOD (BEAKER) (test code = 7.42 1810) PROTHROMBIN [id number] 06:53:00 Test Item Value Reference Range Interpretation Comments PROTIME (BEAKER) 19.7 seconds 11.9-14.2 H (test code = 759) INR (BEAKER) (test 1.72 See_Comment [Automat ed message] code = 370) The system Whi generated this result transmitted ref erence range: <=5.90. The reference range was not used to int erpret this result as normal/abnormal . Effective 03/14/2019: PT Reference Range ChangeNew: 11.9-14.2 Previous: 11.7- 14.7RECOMMENDED COUMADIN/WARFARIN INR THERAPY RANGESSTANDARD DOSE: 2.0-3.0 Includes: PROPHYLAXIS for venous thrombosis, systemic embolization; TREATMENT for venous thrombosis and/or pulmonary embolus.HIGH RISK: Target INR is2.5-3.5 for patients wiht mechanical heart valves.[id number] 06:53:00 Test Item Value Reference Range Interpretation Comments PARTIAL THROMBOPLASTIN TIME 43.2 seconds 22.5-36.0 H (BEAKER) (test code = 760) POCT-GLUCOSE [id number] 06:26:00 Test Item Value Reference Range Interpretation Comments POC-GLUCOSE METER 105 mg/dL 70-110 : TESTED A T [facility] 6720 (BECYNTHIA) (test code = EDI JETT ND, 1538) [id number]: High Risk Case Manager/Techni juan antonio ID = [id number] for RAUL RAF, ALVINA RAD, CHEST, 1 VIEW, NON [id number] 03:58:00DR JALALReferring: Dr. Eric Morel for exam:->edemaShould this be performed at the bedside?->Yes [facility] FRANCO SINGLETARY : 1950 Sex: FFINAL REPORT RAD, CHEST, 1 VIEW, NON DEPT INDICATION: edema COM PARISON: Exam from eight hours prior FINDINGS: Portable frontal view of the chest. IMPRESSION: Support Lines: None Lungs and pleura: Hypoinflated lungs without significant change in bilateral patchylung opacities. No sizable effusion. No pneumothorax.Heart and mediastinum: Stable contours.Additional findings: None. Signed: Jersey Galicia Verified Date/Time: 12/11/2020 03:58:26 U/S, ENDOVAGINAL (EV)2020-12-11 03:56:00DR JALALReferring: Dr. Eric Morel for exam:->Vaginal bleeding [facility] FRANCO SINGLETARY : 1950 Sex: FFINAL REPORT [...] includes endometrial carcinoma, endometrial polyp or hyperplasia. CROSSING SUPERVISOR evaluation is recommended.Nonvisualization of the right ovary.Moderate pelvic free fluid. Signed: Amy Villavicencio MDRepcedar county [facility] Verified Date/Time: 12/11/2020 03:56:10 U/S, ABDOMINAL, [id number] 03:13:00DR JAMES Referring: Dr. Eric Neal Labs to be ordered:->Cell Count Labs to be ordered:->Body Fluid Culture (w/Gram Stain, C\\T\\S) Reason for exam:- >ascites r/u SBP [facility] FRANCO SINGLETARY : 1950 Sex: FFINAL REPORT TECHNIQUE: Grayscale ultrasound of the abdomen. IN DICATION: ascites r/u SBP. COMPARISON: None. IMPRESSION: No ascites on sonographic survey of all four quadrants of the abdomen. Signed: Jersey Galicia MDReport Verified Date/Time: 12/11/2020 03:13:18 POCT-GLUCOSE [id number] 00:14:00 Test Item Value Reference Range Interpretation Comments POC-GLUCOSE METER 125 mg/dL 70-110 H : TESTED A T [facility] 6720 (HANNAAKER) (test code = EDI Hines [facility], 1538) [id number]: High Risk Case Manager/Techni juan antonio ID = [id number] for ALVINA HUANG SARS-COV2/RT-PCR ([facility])2020-12-10 22:11:00 Test Item Value Reference Range Interpretation Comments SARS-COV2/RT-PCR (test Negative Not Detected, Negative, code = 6576129) See external report for linked test SARS-COV-2 PERFORMING LAB [facility] DENITA (test code = 2731133) Negative result for this test determines that [...] 564(g) of the Act.Fact Sheet for Healthcare Providers:https://www.[employer]/sites/default/files/product/documents/Fact_Shee a_LV_Jcficupdm_Oilt_BZNM-QxV-7.pdfFact Sheet for Healthcare Patients:https://www.[employer]/sites/default/files/product/ documents/Bsxy_Ujnya_Tbkfqihh_Ddxr_SAGS-ObK-3.pdfPerforming Laboratory:[place] [address] [address]jeeS[place], [place] [address]UQOGLBXBXM AND [id number] 20:58:00 Test Item Value Reference Range Interpretation Comments HEMOGLOBIN (BEAKER) (test code = 7.5 GM/DL 11.2-15.7 L 410) HEMATOCRIT (BEAKER) (test code = 24.4 % 34.1-44.9 L 411) High Risk Case Manager ID - 6000RAD, CHEST, 1 VIEW, NON [id number] 13:15:00DR JALALReferring: Dr. Eric Morel for exam:->encephalopathy r/o infectionShould this be performed at the bedside?->Yes [facility] FRANCO SINGLETARY : 1950 Sex: FFINAL REPORT INDICATION: encephalopathy r/o infection COMPARISON: None TECHNIQUE: Single frontal view of the chest. FINDINGS: Lungs and pleura: Mild basilar interstitial thickening and small bilateral effusions. Superimposed infection may be excluded clinically. No effusion.Heart and mediastinum: Normal heart size. Unremarkable mediastinal contours.Osseous structures: No acute abnormality.Other: None. Signed: Afshan Chaudhry Verified Date/Time: 12/10/2020 13:15:33 Reading Location: [facility] Radiology Reading Room -GLUCOSE [id number] 12:25:00 Test Item Value Reference Range Interpretation Comments POC-GLUCOSE METER 128 mg/dL 70-110 H : TESTED A T [facility] 6720 (BEAKER) (test code = EDI JETT ND, 1538) 46023: High Risk Case Manager/Techni juan antonio ID = [id number] for SIRIA TANG [id number] 12:11:00 Test Item Value Reference Range Interpretation Comments AMMONIA (BEAKER) (test code = 348) 72 mol/L 18-72 High Risk Case Manager ID - MURALI LBASIC METABOLIC [id number] 07:18:00 Test Item Value Reference Range Interpretation [...] S NOT APPLICABLE FOR DIALYSIS PATIEN TS. High Risk Case Manager ID - MURALI LSpecimen slightly ictericHEPATIC FUNCTION [id number] 07:18:00 Test Item Value Reference Range Interpretation [...] (test code = 48 U/L 6-55 347) High Risk Case Manager ID - MURALI LSpecimealex slightly ictericCBC W/PLT COUNT & AUTO [id number] 07:06:00 Test Item Value Reference Range Interpretation [...] PERCENT (BEAKER) (test code = 2801) PROTHROMBIN [id number] 07:00:00 Test Item Value Reference Range Interpretation Comments PROTIME (BEAKER) 18.1 seconds 11.9-14.2 H (test code = 759) INR (BEAKER) (test 1.55 See_Comment [Automat ed message] code = 370) The system Whi generated this result transmitted ref erence range: [...] = 514) SOURCE(BEAKER) (test code = 2795) High Risk Case Manager ID - [auto]High Risk Case Manager ID - techCOMPREHENSIVE METABOLIC [id number] 07:02:00 Test Item Value Reference Range Interpretation [...] S NOT APPLICABLE FOR DIALYSIS PATIEN TS. High Risk Case Manager ID - ADMINSpecimen slightly [id number] 07:00:00 Test Item Value Reference Range Interpretation Comments MAGNESIUM (BEAKER) (test code = 2.3 mg/dL 1.6-2.6 627) High Risk Case Manager ID - [id number] 07:00:00 Test Item Value Reference Range Interpretation Comments PHOSPHORUS (BEAKER) (test code = 2.8 mg/dL 2.3-4.7 604) High Risk Case Manager ID - ADMINHEPATIC FUNCTION [id number] 07:00:00 Test Item Value Reference Range Interpretation [...] code = 56 U/L 6-55 H 347) High Risk Case Manager ID - ADMINSpecimen slightly ictericCREATINE KINASE (CK)2020-12-08 07:00:00 Test Item Value Reference Range Interpretation Comments CREATINE KINASE TOTAL (BEAKER) (test 35 U/L 29-200 code = 380) High Risk Case Manager ID - ADMINCBC W/PLT COUNT & AUTO [id number] 06:58:00 Test Item Value Reference Range Interpretation [...] PERCENT (BEAKER) (test code = 2801) CALCIUM, [id number] 06:49:00 Test Item Value Reference Range Interpretation Comments CALCIUM IONIZED (BEAKER) (test 1.09 mmol/L 1.12-1.27 L code = 698) PH, BLOOD (BEAKER) (test code = 7.36 1810) PROTHROMBIN [id number] 06:48:00 Test Item Value Reference Range Interpretation Comments PROTIME (BEAKER) 19.0 seconds 11.9-14.2 H (test code = 759) INR (BEAKER) (test 1.66 See_Comment [Automat ed message] code = 370) The system Whi generated this result transmitted ref erence range: <=5.90. The reference range was not used to int erpret this result as normal/abnormal . Effective 03/14/2019: PT Reference Range ChangeNew: 11.9-14.2 Previous: 11.7- 14.7RECOMMENDED COUMADIN/WARFARIN INR THERAPY RANGESSTANDARD DOSE: 2.0-3.0 Includes: PROPHYLAXIS for venous thrombosis, systemic embolization; TREATMENT for venous thrombosis and/or pulmonary embolus.HIGH RISK: Target INR is2.5-3.5 for patients wiht mechanical heart valves.U/S, RENAL, [id number] 05:26:00DR GOLDYeferring: Dr. Eric Morel for exam:->jose manuel [facility] : 1950 Sex: FFINAL [...] MDReport Verified Date/Time: 12/08/2020 05:26:28 CREATININE, RANDOM [id number] 21:05:00 Test Item Value Reference Range Interpretation Comments CREATININE URINE (BEAKER) (test 130.0 mg/dL code = 375) Reference Range: No NormalsOperator ID - BSPROTEIN, RANDOM [id number] 21:05:00 Test Item Value Reference Range Interpretation Comments PROTEIN, URINE (BEAKER) (test code = 32 mg/dL 0-14 H 1569) High Risk Case Manager ID - BSSODIUM, RANDOM [id number] 21:05:00 Test Item Value Reference Range Interpretation Comments SODIUM URINE (BEAKER) (test code = 26 meq/L 243) Reference Range: No NormalsOperator ID - BSURINALYSIS W/ [id number] 20:44:00 Test Item Value Reference Range Interpretation [...] = 516) SOURCE(BEAKER) (test code = 2795) High Risk Case Manager ID - [auto]High Risk Case Manager ID - techCOMPREHENSIVE METABOLIC [id number] 05:50:00 Test Item Value Reference Range Interpretation [...] S NOT APPLICABLE FOR DIALYSIS PATIEN TS. High Risk Case Manager ID - EDASISpecimen slightly [id number] 05:49:00 Test Item Value Reference Range Interpretation Comments MAGNESIUM (BEAKER) (test code = 2.4 mg/dL 1.6-2.6 627) High Risk Case Manager ID - [id number] 05:49:00 Test Item Value Reference Range Interpretation Comments PHOSPHORUS (BEAKER) (test code = 3.3 mg/dL 2.3-4.7 604) High Risk Case Manager ID - EDASIHEPATIC FUNCTION [id number] 05:49:00 Test Item Value Reference Range Interpretation [...] code = 69 U/L 6-55 H 347) High Risk Case Manager ID - EDASISpecimen slightly ictericPROTHROMBIN TIME/[id number] 05:41:00 Test Item Value Reference Range Interpretation Comments PROTIME (BEAKER) 18.3 seconds 11.9-14.2 H (test code = 759) INR (BEAKER) (test 1.58 See_Comment [Automat ed message] code = 370) The system Whi generated this result transmitted ref erence range: <=5.90. The reference range was not used to int erpret this result as normal/abnormal . Effective 03/14/2019: PT Reference Range ChangeNew: 11.9-14.2 Previous: 11.7- 14.7RECOMMENDED COUMADIN/WARFARIN INR THERAPY RANGESSTANDARD DOSE: 2.0-3.0 Includes: PROPHYLAXIS for venous thrombosis, systemic embolization; TREATMENT for venous thrombosis and/or pulmonary embolus.HIGH RISK: Target INR is2.5-3.5 for patients wiht mechanical heart valves.CALCIUM, [id number] 05:28:00 Test Item Value Reference Range Interpretation Comments CALCIUM IONIZED (BEAKER) (test 1.10 mmol/L 1.12-1.27 L code = 698) PH, BLOOD (BEAKER) (test code = 7.34 1810) CBC W/PLT COUNT & AUTO [id number] 05:27:00 Test Item Value Reference Range Interpretation [...] (BEAKER) (test code = 2801) COMPREHENSIVE METABOLIC [id number] 06:09:00 Test Item Value Reference Range Interpretation [...] S NOT APPLICABLE FOR DIALYSIS PATIEN TS. High Risk Case Manager ID - ALIZA MSpecimen slightly ictericCBC W/PLT COUNT & AUTO [id number] 05:56:00 Test Item Value Reference Range Interpretation [...] GRANULOCYTES-RELATIVE PERCENT (BEAKER) (test code = 2801) [id number] 05:53:00 Test Item Value Reference Range Interpretation Comments MAGNESIUM (BEAKER) (test code = 2.2 mg/dL 1.6-2.6 627) High Risk Case Manager ID - ALIZA MHEPATIC FUNCTION [id number] 05:53:00 Test Item Value Reference Range Interpretation [...] code = 84 U/L 6-55 H 347) High Risk Case Manager ID - ALIZA MSpecimen slightly [id number] 06:10:00 Test Item Value Reference Range Interpretation Comments MAGNESIUM (BEAKER) (test code = 2.0 mg/dL 1.6-2.6 627) High Risk Case Manager ID - [id number] 06:10:00 Test Item Value Reference Range Interpretation Comments PHOSPHORUS (BEAKER) (test code = 2.5 mg/dL 2.3-4.7 604) High Risk Case Manager ID - EDASICOMPREHENSIVE METABOLIC [id number] 06:10:00 Test Item Value Reference Range Interpretation [...] S NOT APPLICABLE FOR DIALYSIS PATIEN TS. High Risk Case Manager ID - EDASISpecimen moderately ictericHEPATIC FUNCTION [id number] 06:10:00 Test Item Value Reference Range Interpretation [...] code = 95 U/L 6-55 H 347) High Risk Case Manager ID - EDASISpecimen moderately ictericB-TYPE NATRIURETIC FACTOR (BNP) 2020-12-05 05:49:00 Test Item Value Reference Range Interpretation Comments B-TYPE NATRIURETIC PEPTIDE (BEAKER) 231 pg/mL 0-100 H (test code = 700) High Risk Case Manager ID - EDASIPROTHROMBIN TIME/[id number] 05:27:00 Test Item Value Reference Range Interpretation Comments PROTIME (BEAKER) 20.0 seconds 11.9-14.2 H (test code = 759) INR (BEAKER) (test 1.77 See_Comment [Automat ed message] code = 370) The system Whi generated this result transmitted ref erence range: [...] mechanical heart valves.CBC W/PLT COUNT & AUTO [id number] 05:19:00 Test Item Value Reference Range Interpretation [...] PERCENT (BEAKER) (test code = 2801) CALCIUM, [id number] 05:19:00 Test Item Value Reference Range Interpretation Comments CALCIUM IONIZED (BEAKER) (test 1.11 mmol/L 1.12-1.27 L code = 698) PH, BLOOD (BEAKER) (test code = 7.41 1810) BILIRUBIN, [id number] 10:34:00 Test Item Value Reference Range Interpretation Comments BILIRUBIN DIRECT (HAO) (test 2.3 mg/dL 0.1-0.5 H code = 706) High Risk Case Manager ID - AAHAMIDSARS-COV2/RT-PCR ([facility])2020-12-04 07:25:00 Test Item Value Reference Range Interpretation Comments SARS-COV2/RT-PCR (test Negative Not Detected, Negative, code = 3104662) See external report for linked test SARS-COV-2 PERFORMING LAB [facility] DENITA (test code = 7973382) Negative result for this test determines that [...] 564(g) of the Act.Fact Sheet for Healthcare Providers:https://www.Itouzi.com.[employer]/sites/default/files/product/documents/Fact_Shee m_VJ_Hldohsmvx_Alpv_WLAK-CxV-7.pdfFact Sheet for Healthcare Patients:https://www.[employer]ouzi.com.[employer]/sites/default/files/product/ documents/Atkj_Sgrvq_Rxrazttb_Lspp_UXEA-NgJ-2.pdfPerforming Laboratory:[facility], [place] [address]S-MXPB NATRIURETIC FACTOR (BNP)2020-12-04 05:48:00 Test Item Value Reference Range Interpretation Comments B-TYPE NATRIURETIC PEPTIDE (BEAKER) 365 pg/mL 0-100 H (test code = 700) High Risk Case Manager ID - ALIZA [id number] 05:42:00 Test Item Value Reference Range Interpretation Comments MAGNESIUM (BEAKER) (test code = 2.1 mg/dL 1.6-2.6 627) High Risk Case Manager ID - ALIZA [id number] 05:42:00 Test Item Value Reference Range Interpretation Comments PHOSPHORUS (BEAKER) (test code = 2.2 mg/dL 2.3-4.7 L 604) High Risk Case Manager ID - ALIZA MCOMPREHENSIVE METABOLIC [id number] 05:42:00 Test Item Value Reference Range Interpretation [...] S NOT APPLICABLE FOR DIALYSIS PATIEN TS. High Risk Case Manager ID - ALIZA MSpecimen moderately ictericCALCIUM, [id number] 05:18:00 Test Item Value Reference Range Interpretation Comments CALCIUM IONIZED (BEAKER) (test 1.11 mmol/L 1.12-1.27 L code = 698) PH, BLOOD (BEAKER) (test code = 7.38 1810) CBC W/PLT COUNT & AUTO [id number] 05:13:00 Test Item Value Reference Range Interpretation [...] PERCENT (BEAKER) (test code = 2801) BLOOD [id number] 00:00:00 Test Item Value Reference Range Interpretation Comments CULTURE (BEAKER) (test No growth in 5 days code = 1095) BLOOD [id number] 00:00:00 Test Item Value Reference Range Interpretation Comments CULTURE (BEAKER) (test No growth in 5 days code = 1095) RAD, CHEST, 1 VIEW, NON [id number] 22:22:00DR WINSLOWeferring: Dr. Eric Morel for exam:->edemaShould this be performed at the bedside?->Yes [facility] FRANCO SINGLETARY : 1950 Sex: FFINAL REPORT [...] MDReport Verified Date/Time: 12/03/2020 22:22:17 COMPREHENSIVE METABOLIC [id number] 06:26:00 Test Item Value Reference Range Interpretation [...] S NOT APPLICABLE FOR DIALYSIS PATIEN TS. High Risk Case Manager ID - ALIZA MSpecimen moderately [id number] 06:20:00 Test Item Value Reference Range Interpretation Comments MAGNESIUM (BEAKER) (test code = 2.3 mg/dL 1.6-2.6 627) High Risk Case Manager ID - ALIZA MCBC W/PLT COUNT & AUTO [id number] 06:08:00 Test Item Value Reference Range Interpretation [...] (BEAKER) (test code = 2801) COMPREHENSIVE METABOLIC [id number] 06:20:00 Test Item Value Reference Range Interpretation [...] S NOT APPLICABLE FOR DIALYSIS PATIEN TS. High Risk Case Manager ID Shakir ABRAMS MSpecimen slightly ictericCALCIUM, [id number] 05:40:00 Test Item Value Reference Range Interpretation Comments CALCIUM IONIZED (BEAKER) (test 1.14 mmol/L 1.12-1.27 code = 698) PH, BLOOD (BEAKER) (test code = 7.26 1810) [id number] 05:36:00 Test Item Value Reference Range Interpretation Comments MAGNESIUM (BEAKER) (test code = 2.5 mg/dL 1.6-2.6 627) High Risk Case Manager ID - ALIZA [id number] 05:36:00 Test Item Value Reference Range Interpretation Comments PHOSPHORUS (BEAKER) (test code = 2.2 mg/dL 2.3-4.7 L 604) High Risk Case Manager ID - ALIZA MBILIRUBIN, [id number] 05:36:00 Test Item Value Reference Range Interpretation Comments BILIRUBIN DIRECT (BEAKER) (test 1.8 mg/dL 0.1-0.5 H code = 706) High Risk Case Manager ID Shakir ABRAMS MCREATINE KINASE (CK)2020-12-02 05:36:00 Test Item Value Reference Range Interpretation Comments CREATINE KINASE TOTAL (BEAKER) (test 385 U/L 29-200 H code = 380) High Risk Case Manager ID Shakir ABRAMS MCBC W/PLT COUNT & AUTO [id number] 05:07:00 Test Item Value Reference Range Interpretation [...] (BEAKER) (test code = 2801) U/S, ABDOMINAL, [id number] 13:39:00DR JAMES Referring: Dr. Eric Neal Labs to be ordered:->Body Fluid Culture (w/Gram Stain, C\\T\\S) Labs to be ordered:- >Cell Count Reason for exam:->diagnostic. limit 2 L for therapeutic. [facility] : 1950 Sex: FFINAL REPORT U/S, ABDOMINAL, LIMITED CLINICAL HISTORY: diagnostic. Limit 2 L for therapeutic. COMPARISON: Abdominal MRI 12/06/2020 TECHNIQUE: Real time transverse and longitudinal images of the abdominal quadrants were obtained. FINDINGS / IMPRESSION: Small volumeascites, mostly perihepatic, insufficient for paracentesis, no paracentesis performed. Signed: Kell Langston Verified Date/Time: 12/01/2020 13:39:28 Reading Location: [address] Body Reading Room CREATINE KINASE (CK)2020-12-01 11:58:00 Test Item Value Reference Range Interpretation Comments CREATINE KINASE TOTAL (BEAKER) (test 610 U/L 29-200 H code = 380) High Risk Case Manager ID - ALIZA OMPREHENSIVE METABOLIC [id number] 05:36:00 Test Item Value Reference Range Interpretation [...] S NOT APPLICABLE FOR DIALYSIS PATIEN TS. High Risk Case Manager ID - ALIZA MSpecimen slightly [id number] 05:33:00 Test Item Value Reference Range Interpretation Comments MAGNESIUM (BEAKER) (test code = 2.6 mg/dL 1.6-2.6 627) High Risk Case Manager ID - ALIZA MPROTHROMBIN TIME/[id number] 05:32:00 Test Item Value Reference Range Interpretation Comments PROTIME (BEAKER) 19.5 seconds 11.9-14.2 H (test code = 759) INR (BEAKER) (test 1.70 See_Comment [Automat ed message] code = 370) The system Whi generated this result transmitted ref erence range: [...] mechanical heart valves.CBC W/PLT COUNT & AUTO [id number] 05:11:00 Test Item Value Reference Range Interpretation [...] (BEAKER) (test code = 2801) COMPREHENSIVE METABOLIC [id number] 07:42:00 Test Item Value Reference Range Interpretation [...] S NOT APPLICABLE FOR DIALYSIS PATIEN TS. High Risk Case Manager ID - PIAYA LSpecimen slightly [id number] 07:16:00 Test Item Value Reference Range Interpretation Comments MAGNESIUM (BEAKER) 2.7 mg/dL 1.6-2.6 H Specimen slightly (test code = 627) hemolyzed High Risk Case Manager ID - PIAYA LCBC W/PLT COUNT & AUTO [id number] 06:42:00 Test Item Value Reference Range Interpretation [...] PERCENT (BEAKER) (test code = 2801) PROTHROMBIN [id number] 06:15:00 Test Item Value Reference Range Interpretation Comments PROTIME (BEAKER) 20.0 seconds 11.9-14.2 H (test code = 759) INR (BEAKER) (test 1.75 See_Comment [Automat ed message] code = 370) The system Whi generated this result transmitted ref erence range: [...] wiht mechanical heart valves.RAD, ABDOMEN/KUB, 1 VIEW [id number] 03:41:00DR JALALReferring: Dr. Eric Morel for exam:->constipationShould this be performed at the bedside?->Yes [facility]ANCO SINGLETARY : 1950 Sex: FFINAL REPORT RAD, ABDOMEN/KUB, 1 VIEW AP CLINICAL HISTORY: cons tipation TECHNIQUE: RAD, ABDOMEN/KUB, 1 VIEW AP COMPARISON: None IMPRESSION: The bowel gas pattern is nonspecific/nonobstructive. Oozyn-dr-dyevtuzb volume fecal burden visualized. Supine imaging insensitive for exclusion of free air. Bilateral pulmonary airspace disease present. Signed: Michael Tabares MDReport Verified Date/Time: 11/30/2020 03:41:22 BASIC METABOLIC [id number] 01:17:00 Test Item Value Reference Range Interpretation [...] S NOT APPLICABLE FOR DIALYSIS PATIEN TS. High Risk Case Manager ID - PIAYA LSpecimen slightly ictericCBC [...] WBC 0-0 (test code = 413) POCT-GLUCOSE [id number] 20:49:00 Test Item Value Reference Range Interpretation Comments POC-GLUCOSE METER 130 mg/dL 70-110 H : TESTED A T [facility] 6720 (BEAKER) (test code = EDI JETT ND, 1538) [address]: High Risk Case Manager/Techni juan antonio ID = [id number] for SHERRY GHOSH RA COMPREHENSIVE METABOLIC [id number] 06:22:00 Test Item Value Reference Range Interpretation [...] S NOT APPLICABLE FOR DIALYSIS PATIEN TS. High Risk Case Manager ID - ALIZA MSpecimen slightly [id number] 06:17:00 Test Item Value Reference Range Interpretation Comments MAGNESIUM (BEAKER) (test code = 2.7 mg/dL 1.6-2.6 H 627) High Risk Case Manager ID - ALIZA MPROTHROMBIN TIME/[id number] 06:05:00 Test Item Value Reference Range Interpretation Comments PROTIME (BEAKER) 21.5 seconds 11.9-14.2 H (test code = 759) INR (BEAKER) (test 1.92 See_Comment [Automat ed message] code = 370) The system Whi generated this result transmitted ref erence range: [...] mechanical heart valves.CBC W/PLT COUNT & AUTO [id number] 05:34:00 Test Item Value Reference Range Interpretation [...] PERCENT (BEAKER) (test code = 2801) CALCIUM, [id number] 06:38:00 Test Item Value Reference Range Interpretation Comments CALCIUM IONIZED (BEAKER) (test 1.01 mmol/L 1.12-1.27 L code = 698) PH, BLOOD (BEAKER) (test code = 7.38 1810) B-TYPE NATRIURETIC FACTOR (BNP)2020-11-28 05:27:00 Test Item Value Reference Range Interpretation Comments B-TYPE NATRIURETIC PEPTIDE (BEAKER) 465 pg/mL 0-100 H (test code = 700) High Risk Case Manager ID - EDASICOMPREHENSIVE METABOLIC [id number] 05:25:00 Test Item Value Reference Range Interpretation [...] S NOT APPLICABLE FOR DIALYSIS PATIEN TS. High Risk Case Manager ID - EDASISpecimen slightly [id number] 05:22:00 Test Item Value Reference Range Interpretation Comments MAGNESIUM (BEAKER) (test code = 2.5 mg/dL 1.6-2.6 627) High Risk Case Manager ID - [id number] 05:22:00 Test Item Value Reference Range Interpretation Comments PHOSPHORUS (BEAKER) (test code = 2.6 mg/dL 2.3-4.7 604) High Risk Case Manager ID - EDASICREATINE KINASE (CK)2020-11-28 05:22:00 Test Item Value Reference Range Interpretation Comments CREATINE KINASE TOTAL (BEAKER) (test 3438 U/L 29-200 H code = 380) High Risk Case Manager ID - EDASICALCIUM, [id number] 05:07:00 Test Item Value Reference Range Interpretation Comments CALCIUM IONIZED (BEAKER) (test 1.04 mmol/L 1.12-1.27 L code = 698) PH, BLOOD (BEAKER) (test code = 7.39 1810) PROTHROMBIN TIME/[id number] 05:06:00 Test Item Value Reference Range Interpretation Comments PROTIME (BEAKER) 20.3 seconds 11.9-14.2 H (test code = 759) INR (BEAKER) (test 1.79 See_Comment [Automat ed message] code = 370) The system Whi generated this result transmitted ref erence range: [...] mechanical heart valves.CBC W/PLT COUNT & AUTO [id number] 05:00:00 Test Item Value Reference Range Interpretation [...] (BEAKER) (test code = 2801) URINALYSIS W/ [id number] 21:23:00 Test Item Value Reference Range Interpretation [...] = 1585) Occasional SOURCE(BEAKER) (test code = 2793) High Risk Case Manager ID - [auto]High Risk Case Manager ID - techSODIUM, RANDOM [id number] 21:16:00 Test Item Value Reference Range Interpretation Comments SODIUM URINE (BEAKER) (test code = < meq/L 243) Reference Range: No NormalsOperator ID - BSCREATININE, RANDOM [id number] 21:13:00 Test Item Value Reference Range Interpretation Comments CREATININE URINE (BEAKER) (test 115.0 mg/dL code = 375) Reference Range: No NormalsOperator ID - BSPROTEIN, RANDOM [id number] 21:13:00 Test Item Value Reference Range Interpretation Comments PROTEIN, URINE (BEAKER) (test code = 74 mg/dL 0-14 H 1569) High Risk Case Manager ID - BSUREA NITROGEN, RANDOM [id number] 21:13:00 Test Item Value Reference Range Interpretation [...] = 413) PERIPHERAL BLOOD SMEAR - PATHOLOGIST [id number] 13:22:00 Test Item Value Reference Range Interpretation Comments PERIPHERAL SMR REVIEW No circulating blasts. (BEAKER) (test code = No significantly 2640) increased schistocytes. [id number] Constantine Linn, (BEAKER) (test code = M.D.(electronic 4599) signature) CREATINE KINASE (CK)2020-11-27 06:15:00 Test Item Value Reference Range Interpretation Comments CREATINE KINASE TOTAL (BEAKER) (test 4837 U/L 29-200 H code = 380) High Risk Case Manager ID - SMOperator ID - SMALPHA FETOPROTEIN (AFP), TUMOR [id number] 06:07:00 Test Item Value Reference Range Interpretation Comments ALPHA-FETOPROTEIN (BEAKER) (test code < ng/mL <10.0 = 1094) High Risk Case Manager ID - ALIZA MHEPATITIS B SURFACE [id number] 06:07:00 Test Item Value Reference Range Interpretation Comments HEPATITIS B SURFACE ANTIBODY < mIU/mL <8.0 (BEAKER) (test code = 647) High Risk Case Manager ID - ALIZA CONTE [id number] 05:59:00 Test Item Value Reference Range Interpretation [...] failure, acidosis, acute neurological disease, and persistent tachyarrhythmia.High Risk Case Manager ID - [facility]ENTER[facility]PREHENSIVE METABOLIC [id number] 05:50:00 Test Item Value Reference Range Interpretation [...] S NOT APPLICABLE FOR DIALYSIS PATIEN TS. High Risk Case Manager ID - SMPROTHROMBIN TIME/[id number] 05:42:00 Test Item Value Reference Range Interpretation Comments PROTIME (BEAKER) 19.7 seconds 11.9-14.2 H (test code = 759) INR (BEAKER) (test 1.72 See_Comment [Automat ed message] code = 370) The system Whi generated this result transmitted ref erence range: <=5.90. The reference range was not used to int erpret this result as normal/abnormal . Effective 03/14/2019: PT Reference Range ChangeNew: 11.9-14.2 Previous: 11.7- 14.7RECOMMENDED COUMADIN/WARFARIN INR THERAPY RANGESSTANDARD DOSE: 2.0-3.0 Includes: PROPHYLAXIS for venous thrombosis, systemic embolization; TREATMENT for venous thrombosis and/or pulmonary embolus.HIGH RISK: Target INR is2.5-3.5 for patients wiht mechanical heart valves.[id number] 05:41:00 Test Item Value Reference Range Interpretation Comments MAGNESIUM (BEAKER) (test code = 2.3 mg/dL 1.6-2.6 627) High Risk Case Manager ID - [id number] 05:41:00 Test Item Value Reference Range Interpretation Comments PHOSPHORUS (BEAKER) (test code = 3.2 mg/dL 2.3-4.7 604) High Risk Case Manager ID - SMB-TYPE NATRIURETIC FACTOR (BNP)2020-11-27 05:33:00 Test Item Value Reference Range Interpretation Comments B-TYPE NATRIURETIC PEPTIDE (BEAKER) 210 pg/mL 0-100 H (test code = 700) High Risk Case Manager ID - SMCALCIUM, [id number] 05:27:00 Test Item Value Reference Range Interpretation Comments CALCIUM IONIZED (BEAKER) (test 1.04 mmol/L 1.12-1.27 L code = 698) PH, BLOOD (BEAKER) (test code = 7.33 1810) RETICULOCYTE [id number] 05:09:00 Test Item Value Reference Range Interpretation Comments RETICULOCYTE COUNT PCT (BEAKER) (test 2.3 % 0.5-1.7 H code = 575) High Risk Case Manager ID - 6000CBC W/PLT COUNT & AUTO [id number] 05:09:00 Test Item Value Reference Range Interpretation [...] (BEAKER) (test code = 2801) MR, ABDOMEN, [id number] 20:05:00DR JALALReferring: Dr. Eric Champion portal vein clot and hccUnlisted Reason for Exam - Click Yes and Enter Reason Below->No[facility] : 1950 Sex: FFINAL [...] MDReport Verified Date/Time: 11/26/2020 20:05:06 Reading Location: [facility] B1 C013Y CT Body Reading Room -COV2/RT-PCR ([facility])2020-11-26 18:12:00 Test Item Value Reference Range Interpretation Comments SARS-COV2/RT-PCR (test Negative Not Detected, Negative, code = 3699392) See external report for linked test SARS-COV-2 PERFORMING LAB [facility] (test code = 7927057) Negative result for this test determines that [...] 564(g) of the Act.Fact Sheet for Healthcare Providers:https://www.Optyn/sites/default/files/product/documents/Fact_Shee j_WI_Jlkwofhhb_Inmt_UOOC-MwE-8.pdfFact Sheet for Healthcare Patients:https://www.Optyn/sites/default/files/product/ documents/Mquh_Iysnu_Adxhponm_Wstt_UPCK-WeV-3.pdfPerforming Laboratory:[place] [address], [place] [id number] 17:43:00 Test Item Value Reference Range Interpretation Comments HAPTOGLOBIN (BEAKER) (test code = 52 mg/dL 14258 366) High Risk Case Manager ID - BSVITAMIN B12 AND [id number] 16:08:00 Test Item Value Reference Range Interpretation Comments VITAMIN B12 659 pg/mL 213-816 (BEAKER) (test code = 774) FOLATE (BEAKER) 12.20 ng/mL See_Comment [Automated message] (test code = 362) The system which generated this result transmitted ref erence range: >=7.00. The reference range was not used to interpr et this result as normal/abnormal . High Risk Case Manager ID - BSVITAMIN [id number] 15:58:00 Test Item Value Reference Range Interpretation Comments VITAMIN B12 (BEAKER) (test code = 623 pg/mL 213-816 774) High Risk Case Manager ID - [id number] 15:58:00 Test Item Value Reference Range Interpretation Comments FERRITIN (BEAKER) (test code = 18.49 ng/mL 5.00-275.00 361) High Risk Case Manager ID - BSTSH/FREE T4 IF [id number] 15:58:00 Test Item Value Reference Range Interpretation Comments THYROID STIMULATING HORMONE 1.498 uIU/mL 0.350-4.940 (BEAKER) (test code = 772) High Risk Case Manager ID - BSTROPONIN [id number] 15:38:00 Test Item Value Reference Range Interpretation [...] failure, acidosis, acute neurological disease, and persistent tachyarrhythmia.High Risk Case Manager ID - BSIRON, TIBC, % SAT. (WITHOUT FERRITIN)2020-11-26 15:31:00 Test Item Value Reference Range Interpretation Comments IRON (BEAKER) (test code = 547) 17.0 ug/dL 40.0-160.0 L TOTAL IRON BINDING CAPACITY 228 ug/dL 250-450 L (BEAKER) (test code = 769) IRON % SATURATION (2) (BEAKER) 7 % 20-55 L (test code = 2590) High Risk Case Manager ID - BSLACTATE DEHYDROGENASE (LDH)2020-11-26 15:28:00 Test Item Value Reference Range Interpretation Comments LACTATE DEHYDROGENASE (BEAKER) (test 555 U/L 125-220 H code = 635) High Risk Case Manager ID - BSRETICULOCYTE [id number] 14:12:00 Test Item Value Reference Range Interpretation Comments RETICULOCYTE COUNT PCT (BEAKER) (test 2.7 % 0.5-1.7 H code = 575) High Risk Case Manager ID - 6000RAD, PELVIS, 1 OR 2 [id number] 10:30:00DR HILTONLAKYMeferring: Dr. Eric Morel for exam:->LEG PAINBLReason for exam:->HIP PAINBLShouldthis be performed at the bedside?->Yes [facility] : 1950 Sex: FFINAL REPORT CLINICAL HISTORY: LEG PAINHIP PAIN TECHNIQUE: AP pelvis COMPARISON: None IMPRESSION: The pelvis appears intact without evidence of fracture or dislocation on the single frontal view. Signed: Sangeeta Garces Verified Date/Time: 11/26/2020 10:30:11 Reading Location: [facility] Radiology Reading Room RAD, CHEST, 1 VIEW, NON [id number] 10:30:00DR GOLDYeferring: Dr. Eric Morel for exam:->peripheral edemaBLReason for exam:->BLShouldthis be performed at the bedside?->Yes [facility] FRANCO SINGLETARY : 1950 Sex: FFINAL REPORT CLINICAL HISTORY: peripheral edema TECHNIQUE: 1 view of the chest. COMPARISON: 09/25/2019 IMPRESSION: Diffuse bilateral interstitial infiltrates are similar versus slightly increased in prominence. Subpulmonic pleural effusions cannot be excluded. The cardiomediastinal silhouette is magnified by technique. Elevation of the right hemidiaphragm is again seen. Signed: Sangeeta Garces MDReport Verified Date/Time: 11/26/2020 10:30:51 Reading Location: [facility] Radiology Reading Room TROPONIN [id number] 10:27:00 Test Item Value Reference Range Interpretation [...] failure, acidosis, acute neurological disease, and persistent tachyarrhythmia.High Risk Case Manager ID - EDASIB-TYPE NATRIURETIC FACTOR (BNP)2020-11-26 10:26:00 Test Item Value Reference Range Interpretation Comments B-TYPE NATRIURETIC PEPTIDE (BEAKER) 114 pg/mL 0-100 H (test code = 700) High Risk Case Manager ID - EDASICOMPREHENSIVE METABOLIC [id number] 10:23:00 Test Item Value Reference Range Interpretation [...] S NOT APPLICABLE FOR DIALYSIS PATIEN TS. High Risk Case Manager ID - EDASICBC W/PLT COUNT & AUTO [id number] 10:09:00 Test Item Value Reference Range Interpretation [...] 0-1 PERCENT (BEAKER) (test code = 2801) [id number] 10:47:00 Test Item Value Reference Range Interpretation Comments RPR SCREEN (BEAKER) (test code = Nonreactive Nonreactive 420) HEMOGLOBIN [id number] 08:19:00 Test Item Value Reference Range Interpretation Comments HEMOGLOBIN A1C (BEAKER) (test code = 4.4 % 4.3-6.1 368) TSH/FREE T4 IF [id number] 07:41:00 Test Item Value Reference Range Interpretation Comments THYROID STIMULATING HORMONE 1.836 uIU/mL 0.350-4.940 (BEAKER) (test code = 772) High Risk Case Manager ID - EDASIVITAMIN B12 AND [id number] 07:41:00 Test Item Value Reference Range Interpretation Comments VITAMIN B12 (BEAKER) (test code = 356 pg/mL 213-816 774) FOLATE (BEAKER) (test code = 362) 12.40 ng/mL >=7.00 High Risk Case Manager ID - EDASISARS-COV2/RT-PCR ([facility])2020-10-24 07:10:00 Test Item Value Reference Range Interpretation Comments SARS-COV2/RT-PCR (test Negative Not Detected, Negative, code = 7577257) See external report for linked test SARS-COV-2 PERFORMING LAB [facility] (test code = 8940451) Negative result for this test determines that [...] the Cheema SARS-CoV-2 assay.Fact Sheet for Healthcare Providers:https://www.molecular.cheema/derrick/ GV_CFDZ-CpS-2_ULJ_Rsqo_Nvozj_20-082755.pdfFact Sheet for Healthcare Patients:https://www.eventuosity.ab lauryn/derrick/CX_SITN-XcB-9_Itovuow_Fmwh_Jbobk_AZ_24-631992K6.pdfPerforming Laboratory:[facility] [place] [address] BASIC METABOLIC [id number] 06:47:00 Test Item Value Reference Range Interpretation [...] S NOT APPLICABLE FOR DIALYSIS PATIEN TS. High Risk Case Manager ID - PIDENY [id number] 06:47:00 Test Item Value Reference Range Interpretation Comments MAGNESIUM (BEAKER) (test code = 2.0 mg/dL 1.6-2.6 627) High Risk Case Manager ID - KIMBERLYDENY [id number] 06:47:00 Test Item Value Reference Range Interpretation Comments PHOSPHORUS (BEAKER) (test code = 2.6 mg/dL 2.3-4.7 604) High Risk Case Manager ID - PIDENY LLIPID [id number] 06:47:00 Test Item Value Reference Range Interpretation [...] Borderline 130-159 High 160-189 Very High >=190 High Risk Case Manager ID - PIAYALCBC W/PLT COUNT & AUTO [id number] 06:07:00 Test Item Value Reference Range Interpretation [...] (BEAKER) (test code = 2801) CT, CTANGIO [id number] 00:46:00DR GOLDYeferring: Dr. Eric Sepulveda Reason for Exam - Click Yes and Enter Reason Below->No [facility] : 1950 Sex: FFINAL [...] occipital lobe consistent with an evolving acute TEMPER MILL OPERATOR territory infarct. There is no acute intracranial [...] segment of the left posterior cerebral artery (TEMPER MILL OPERATOR). There is good flow related enhancement [...] left caudate head lacunar infarct.Evolving acute left TEMPER MILL OPERATOR territory infarct.No acute intracranial hemorrhage or mass effect. CTA head:Occlusion of the P2 segment of the left TEMPER MILL OPERATOR. CTA neck:Mild short segment stenoses of the bilateral proximal cervical ICAs.No vessel occlusion or hemodynamically significant stenosis by NASCET criteria.Pulmonary findings which may represent pulmonary interstitial edema. A chest radiograph the helpful for further evaluation. Signed: Amy Villavicencio MDReport Verified Date/Time: 10/24/2020 00:46:37 CT, CAROTID, ANGIO 2020-10-24 00:46:00DR WINSLOWeferring: Dr. Eric Brownisted Reason for Exam - Click Yes and Enter Reason Below->No [facility] : 1950 Sex: FFINAL [...] occipital lobe consistent with an evolving acute TEMPER MILL OPERATOR territory infarct. There is no acute intracranial [...] segment of the left posterior cerebral artery (TEMPER MILL OPERATOR). There is good flow related enhancement [...] left caudate head lacunar infarct.Evolving acute left TEMPER MILL OPERATOR territory infarct.No acute intracranial hemorrhage or mass effect. CTA head:Occlusion of the P2 segment of the left TEMPER MILL OPERATOR. CTA neck:Mild short segment stenoses of the bilateral proximal cervical ICAs.No vessel occlusion or hemodynamically significant stenosis by NASCET criteria.Pulmonary findings which may represent pulmonary interstitial edema. A chest radiograph the helpful for further evaluation. Signed: Amy Villavicencio MDReport Verified Date/Time: 10/24/2020 00:46:37 C-REACTIVE PROTEIN 2020-10-23 20:16:00 Test Item Value Reference Range Interpretation Comments C-REACTIVE PROTEIN (BEAKER) (test 0.67 mg/dL 0.00-0.50 H code = 676) High Risk Case Manager ID - DBMR, BRAIN, WITHOUT [id number] 18:51:00DR GOLDYeferring: Dr. Eric Sepulveda Reason for Exam - Click Yes and Enter Reason Below->No [facility]ING[facility] : 1950 Sex: FFINAL REPORT MR, BRAIN, WITHOUT CONTRAST INDICATION: Neuro deficit, acute, persistent or progressing TECHNIQUE: Multiplanar, multisequence MR imaging of the brain without intravenous contrast. COMPARISON: CT head 10/23/2020 FINDINGS: Intracranial: There is restricted diffusion and FLAIR hyperintensity within the mesial left temporal and occipital lobes as well as the left splenium of the corpus callosum, consistent with acute TEMPER MILL OPERATOR territory infarct. No acute intracranial hemorrhage. [...] Calvarium \\T\\ scalp: Unremarkable. 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 High Risk Case Manager ID - DBCT, BRAIN/STROKE [id number] 15:34:00DR Verdeing: Dr. Eric Morel for exam:->Right visual field deficit [facility] : 1950 Sex: [...] occipital lobe is suspicious for acute left TEMPER MILL OPERATOR territory infarct.2.No acute intracranial hemorrhage.3.Generalized parenchymalvolume loss and chronic microvascular changes, progressed since 2015. The findings were discussed with Dr. KATRIN DE LEON MD on 10/23/2020 3:34 PM. Signed: Shefali Marcos Verified Date/Time:10/23/2020 15:34:36 PROTHROMBIN TIME/[id number] 15:21:00 Test Item Value Reference Range Interpretation [...] INR is2.5-3.5 for patients wiht mechanical heart valves.PT/[id number] 15:21:00 Test Item Value Reference Range Interpretation [...] mechanical heart valves.CBC W/PLT COUNT & AUTO [id number] 15:12:00 Test Item Value Reference Range Interpretation [...] (BEAKER) (test code = 2801) URINALYSIS W/ [id number] 15:23:00 Test Item Value Reference Range Interpretation [...] code = 1521) SOURCE(BEAKER) (test code = 9085) High Risk Case Manager ID - [auto]High Risk Case Manager ID - techB-TYPE NATRIURETIC FACTOR (BNP)2020-09-27 11:13:00 Test Item Value Reference Range Interpretation Comments B-TYPE NATRIURETIC PEPTIDE (BEAKER) 156 pg/mL 0-100 H (test code = 700) High Risk Case Manager ID - DBCOMPREHENSIVE METABOLIC [id number] 10:52:00 Test Item Value Reference Range Interpretation [...] S NOT APPLICABLE FOR DIALYSIS PATIEN TS. High Risk Case Manager ID - [id number] 10:52:00 Test Item Value Reference Range Interpretation Comments MAGNESIUM (BEAKER) (test code = 1.7 mg/dL 1.6-2.6 627) High Risk Case Manager ID - [id number] 10:52:00 Test Item Value Reference Range Interpretation Comments PHOSPHORUS (BEAKER) (test code = 2.0 mg/dL 2.3-4.7 L 604) High Risk Case Manager ID - [id number] 10:41:00 Test Item Value Reference Range Interpretation Comments AMMONIA (BEAKER) (test code = 348) 36 mol/L 18-72 High Risk Case Manager ID - DBCBC W/PLT COUNT & AUTO [id number] 10:35:00 Test Item Value Reference Range Interpretation [...] code = 2801) ALPHA FETOPROTEIN (AFP), TUMOR [id number] 17:48:00 Test Item Value Reference Range Interpretation Comments ALPHA-FETOPROTEIN (BEAKER) (test 2.3 ng/mL <10.0 code = 1094) High Risk Case Manager ID - BSBASIC METABOLIC [id number] 16:33:00 Test Item Value Reference Range Interpretation [...] S NOT APPLICABLE FOR DIALYSIS PATIEN TS. High Risk Case Manager ID - BSHEPATIC FUNCTION [id number] 16:29:00 Test Item Value Reference Range Interpretation [...] (test code = 21 U/L 6-55 347) High Risk Case Manager ID - BSCBC W/PLT COUNT & AUTO [id number] 16:17:00 Test Item Value Reference Range Interpretation [...] PERCENT (BEAKER) (test code = 2801) PROTHROMBIN TIME/[id number] 16:16:00 Test Item Value Reference Range Interpretation [...] (test 2.8 ng/mL <10.0 code = 1094) High Risk Case Manager ID - DBBASIC METABOLIC [id number] 18:13:00 Test Item Value Reference Range Interpretation [...] S NOT APPLICABLE FOR DIALYSIS PATIEN TS. High Risk Case Manager ID - DBHEPATIC FUNCTION [id number] 18:13:00 Test Item Value Reference Range Interpretation [...] Specimen slightly (test code = 347) hemolyzed High Risk Case Manager ID - DBPROTHROMBIN TIME/[id number] 17:20:00 Test Item Value Reference Range Interpretation [...] ng/mL <10.0 code = 1094) BASIC METABOLIC [id number] 13:59:00 Test Item Value Reference Range Interpretation [...] DIALYSIS PATIEN TS. Specimen slightly ictericHEPATIC FUNCTION [id number] 13:59:00 Test Item Value Reference Range Interpretation [...] 21 U/L 6-55 347) Specimen slightly ictericPROTHROMBIN TIME/[id number] 13:43:00 Test Item Value Reference Range Interpretation [...] mechanical heart valves.CBC W/PLT COUNT & AUTO [id number] 13:37:00 Test Item Value Reference Range Interpretation [...] (BEAKER) (test code = 2801) BASIC METABOLIC [id number] 18:07:00 Test Item Value Reference Range Interpretation [...] DIALYSIS PATIEN TS. Specimen slightly ictericHEPATIC FUNCTION [id number] 18:07:00 Test Item Value Reference Range Interpretation [...] (test code = 347) hemolyzed Specimen slightly ictericPT/[id number] 17:56:00 Test Item Value Reference Range Interpretation [...] mechanical heart valves.CBC W/PLT COUNT & AUTO [id number] 17:44:00 Test Item Value Reference Range Interpretation [...] (test code = 2801) RAD, CHEST, 2 [id number] 17:15:00Referring: Dr. Eric Morel for exam:->sobFINAL REPORT [...] Valladares MDReportVerified Date/Time: 09/25/2019 17:15:28 Reading Location: [facility] Radiology Reading Room LACTIC ACID, [id number] 09:40:00 Test Item Value Reference Range Interpretation Comments LACTATE BLOOD VENOUS 2.7 mmol/L 0.5-2.2 H Specime n slightly (2) (BEAKER) (test hemolyzed code = 2872) Specimen slightly ictericCOMPREHENSIVE METABOLIC [id number] 09:31:00 Test Item Value Reference Range Interpretation [...] Specimen slightly ictericCBC W/PLT COUNT & AUTO [id number] 09:24:00 Test Item Value Reference Range Interpretation [...] = 2801) RAD, CHEST, 1 VIEW, NON [id number] 09:00:00Referring: Dr. Eric Morel for exam:->SHORTNESS OF BREATHShould [facility] be [facility]?->YesFINAL REPORT INDICATION: SHORTNESS OF BREATH [...] MDReport Verified Date/Time: 09/19/2019 09:00:49 Reading Location: [facility] Radiology Reading Room [id number] 01:00:00 Test Item Value Reference Range Interpretation Comments CULTURE (BEAKER) (test No growth in 5 days code = 1095) BLOOD [id number] 01:00:00 Test Item Value Reference Range Interpretation Comments CULTURE (BEAKER) (test No growth in 5 days code = 1095) COMPREHENSIVE METABOLIC [id number] 07:18:00 Test Item Value Reference Range Interpretation [...] APPLICABLE FOR DIALYSIS PATIEN TS. LACTIC ACID, [id number] 06:20:00 Test Item Value Reference Range Interpretation Comments LACTATE BLOOD VENOUS (2) (BEAKER) 1.2 mmol/L 0.5-2.2 (test code = 2872) CBC W/PLT COUNT & AUTO [id number] 06:02:00 Test Item Value Reference Range Interpretation [...] (BEAKER) (test code = 2801) U/S, ABDOMINAL, [id number] 02:23:00Referring: Dr. rEic Oneill limited area? Add comment if clarification [...] MDReport Verified Date/Time: 09/10/2019 18:38:06 Reading Location: [address] Consult Reading Room POCT-LACTIC ACID, [id number] 16:53:00 Test Item Value Reference Range Interpretation Comments POC-LACTIC ACID, 3.1 mmol/L 0.9-1.7 H TESTED AT [facility] [address] (BEAKER) (test [facility] code = 2805) [address] RAD, CHEST, 1 VIEW, NON [id number] 16:48:00Referring: Dr. Eric Morel for exam:->ABDOMINAL PAINShould [...] spine and shoulders are noted. Signed: Tunde Cruzeport Verified Date/Time: 09/10/2019 16:48:56 Reading Location: [facility] Reading Room BASIC METABOLIC [id number] 16:27:00 Test Item Value Reference Range Interpretation [...] DIALYSIS PATIEN TS. Specimen slightly ictericHEPATIC FUNCTION [id number] 16:27:00 Test Item Value Reference Range Interpretation [...] Specimen slightly ictericCBC W/PLT COUNT & AUTO [id number] 16:15:00 Test Item Value Reference Range Interpretation [...] PERCENT (BEAKER) (test code = 2801) TISSUE [id number] 15:15:00Surgical Pathology Report Case: [id number] Authorizing Provider: Obed James MD Collected: 08/13/2019 0950 Ordering Location: [facility] Endoscopy Received: 08/13/2019 1421 Services Pathologist: Constantine [...] POLYP, MULTIPLE. Signing Pathologist Direct Phone Line: [phone] signed by Constantine Linn MD on 08/14/2019 at 3:15 [id number] colonoscopyA. Small bowel, NOS, small bowel biopsy [...] Submitted in toto in block B1. HL/plPerformed. [facility], Department of Pathology, [address] [place] [id number], [facility], [address] [place] [address], [facility], [facility] of [facility], [address] [place] [address], cbc W/PLT COUNT & AUTO [id number] 07:33:00 Test Item Value Reference Range Interpretation [...] code = 2801) ALPHA FETOPROTEIN (AFP), TUMOR [id number] 19:11:00 Test Item Value Reference Range Interpretation Comments ALPHA-FETOPROTEIN (BEAKER) (test 2.8 ng/mL <10.0 code = 1094) BASIC METABOLIC [id number] 13:49:00 Test Item Value Reference Range Interpretation [...] DIALYSIS PATIEN TS. Specimen slightly ictericHEPATIC FUNCTION [id number] 13:49:00 Test Item Value Reference Range Interpretation [...] Specimen slightly ictericCBC W/PLT COUNT & AUTO [id number] 13:40:00 Test Item Value Reference Range Interpretation [...] PERCENT (BEAKER) (test code = 2801) PROTHROMBIN [id number] 13:37:00 Test Item Value Reference Range Interpretation [...] is2.5-3.5 for patients wiht mechanical heart valves.TISSUE [id number] 09:29:00Surgical Pathology Report Case: [id number] Authorizing Provider: Obed James MD Collected: 08/07/2018 0914 Ordering Location: [facility] Endoscopy Received: 08/07/2018 1134 Services Pathologist: Constantine Linn MD Specimens: A) - Small Bowel, NOS B) -Antrum PART A SMALL INTESTINE, BIOPSY:SMALL INTESTINAL MUCOSA WITH PRESERVED VILLOUS ARCHITECTURE.NO GRANULOMAS, ULCERATION, DYSPLASIA, OR INVASIVE CARCINOMA SEEN.PART B GASTRIC ANTRUM, BIOPSY:MILD CHRONIC INACTIVE GASTRITIS.WARTHIN STARRY STAIN FOR HELICOBACTER IS NEGATIVE. Signing Pathologist Direct Phone Line: [phone] signed by Constantine Linn MD on 08/09/2018 at 9:29 [id number], [id number] screening A. Small bowel. B. Antrum Specimen [...] incorporated in the diagnostic report above:BLOCK B1- MINGTARRYTISSUE [id number] 08:31:00Surgical Pathology Report Case: [id number] Authorizing Provider: Obed James MD Collected: 01/27/2018 1140 Ordering Location: [facility] Endoscopy Received: 01/27/2018 1533 Services Pathologist: Constantine Linn MD Specimen: Biopsy, Gastric, ANTRAL BX/FORCEP PART A GASTRIC ANTRUM BIOPSY:MILD CHRONIC INACTIVE GASTRITIS.WARTHIN STARRY STAIN FOR HELICOBACTER IS NEGATIVE. Signing Pathologist Direct Phone Line: [phone] signed by Constantine Linn MDon 01/30/2018 at 8:31 [id number], [id number] cirrhosis. Gastric antrum biopsy In formalin labeled "biopsy, gastric", description "antral biopsy" are three fragments measuring 0.6 x 0.5 x 0.1 cm in aggregate. Entirely submitted A1. DB/bc The following special studies were performed on this case and the interpretation is incorporated in the diagnostic report above:BLOCK A1- GALLO HERNÁNDEZMR, ABDOMEN, [id number] 09:41:00Referring: Dr. Eric Moscoso REPORT History: Portal [...] MDReport Verified Date/Time: 01/19/2018 09:41:39 Reading Location: [facility] Diagnostic Imaging Reading Room - [place] [address] Electronically signed by: LASHAE MERAZ M.D.on 01/19/2018 09:41 AM [id number] 08:28:00 Test Item Value Reference Range Interpretation Comments POC-CREATININE 0.7 mg/dL 0.6-1.3 TESTED AT [facility] [address] ([facility]) (test [facility] [place] code = 1859) [address] POC-EGFR ([facility]) 83 mL/min/1.73M2 (test code = 1860) MR, ABDOMEN, [id number] 15:45:00Referring: Dr. Eric Morel for Exam:- >cirrhosis, [...] Ac Verified Date/Time: 07/29/2017 15:45:59 Reading Location: [address] Radiology Reading Room [id number] 10:20:00 Test Item Value Reference Range Interpretation Comments POC-CREATININE 0.8 mg/dL 0.6-1.3 TESTED AT [facility] [address] ([facility]) (test [facility] [place] code = 1859) [address] POC-EGFR ([facility]) 72 mL/min/1.73M2 (test code = 1860) TISSUE [id number] 13:53:00Surgical Pathology Report Case: [id number] Authorizing Provider: Obed James MD Collected: 03/21/2017 0946 Ordering Location: [facility] Endoscopy Received: 03/21/2017 1202 Services Pathologist: Re Engel MD Specimen: Biopsy, Gastric, ANTRAL BX/FORCEP STOMACH, ANTRUM, BIOPSY: - ANTRAL MUCOSA WITH CHRONIC INACTIVE GASTRITIS, MILD MUCOSAL CONGESTION, AND INTESTINAL METAPLASIA [id number] ascitesAntrum gastric biopsyThe specimen is received in a formalin-filled container and labeled with the patient's information and labeled "antral gastric biopsy" and consists of a 0.1 cm fragment of eng soft tissue, submitted entirely A1. CG/plPerformed.The following special studies were performedon this case and the interpretation is incorporated in the diagnostic report above:Warthin Starry stain negative for Helicobacter pylori organisms. [id number] 07:58:00 Test Item Value Reference Range Interpretation Comments POC-POTASSIUM 4.8 meq/L 3.6-5.5 TESTED AT [facility] [address] ([facility]) (test code [facility] [place] [place] [address] = 1540) CBC W/PLT COUNT & AUTO [id number] 12:57:00 Test Item Value Reference Range Interpretation [...] code = 417) 0.00ALPHA FETOPROTEIN (AFP), TUMOR [id number] 12:30:00 Test Item Value Reference Range Interpretation Comments ALPHA-FETOPROTEIN (BEAKER) (test 3.1 ng/mL <10.0 code = 1094) Effective 09/03/2014: Reference Range ChangeNew: <10.0 Previous: 0.0-8.0 HEPATIC FUNCTION [id number] 12:10:00 Test Item Value Reference Range Interpretation [...] = 14 U/L 6-55 347) BASIC METABOLIC [id number] 12:10:00 Test Item Value Reference Range Interpretation [...] S NOT APPLICABLE FOR DIALYSIS PATIEN TS. [id number] 12:01:00 Test Item Value Reference Range Interpretation Comments FIBRINOGEN LEVEL (BEAKER) (test 269 mg/dl 225-434 code = 658) PROTHROMBIN [id number] 12:00:00 Test Item Value Reference Range Interpretation [...]
--- NOTE | 2022-02-23 14:46 | EDPHYS ---
Physician Documentation [facility] Name: Nelda Ramírez Age: 71 yrs Sex: Female : 1950 Arrival Date: 02/23/2022 Time: 14:33 Bed Waiting Private MD: ED Physician Rangel Rajput HPI: 02/23 14:50 This 71 yrs old Female presents to ER via Ambulatory with complaints of Bruise jr8 to right foot. 14:50 The patient presents with a contusion. The complaints affect the right foot. Onset: The jr8 symptoms/episode began/occurred at an unknown time. Modifying factors: The symptoms are alleviated by nothing, the symptoms are aggravated by nothing. Associated signs and symptoms: The patient has no apparent associated signs or symptoms. Severity of symptoms: At their worst the symptoms were very mild, in the emergency department the symptoms are unchanged. The patient has not experienced similar symptoms in the past. The patient has not recently seen a physician. Family was concerned because she had bruise to top of foot. Patient without pain upon ambulation or palpation. Does not recall what happened. Denies any other complaints . Historical: - Allergies: 14:46 Aspirin; jl7 14:46 Cipro; jl7 14:46 PENICILLINS; jl7 - PMHx: 14:46 CHF; Cirrhosis; Hypertension; liver/kidney disease; short term memory loss; jl7 - Immunization history:: Client reports receiving the 2nd dose of the Covid vaccine. - Social history:: Smoking status: Patient denies any tobacco usage or history of. ROS: 14:50 Eyes: Negative for injury, pain, redness, and discharge, ENT: Negative for injury, jr8 pain, and discharge, Neck: Negative for injury, pain, and swelling, Cardiovascular: Negative for chest pain, palpitations, and edema, Respiratory: Negative for shortness of breath, cough, wheezing, and pleuritic chest pain, Abdomen/GI: Negative for abdominal pain, nausea, vomiting, diarrhea, and constipation, Back: Negative for injury and pain, MS/Extremity: Negative for injury and deformity, Neuro: Negative for headache, weakness, numbness, tingling, and seizure. 14:50 Skin: Positive for ecchymosis, of the right foot. Exam: 14:50 Constitutional: This is a well developed, well nourished patient who is awake, alert, jr8 and in no acute distress. Cardiovascular: Regular rate and rhythm with a normal S1 and S2. No gallops, murmurs, or rubs. Normal PMI, no JVD. No pulse deficits. Respiratory: Lungs have equal breath sounds bilaterally, clear to auscultation and percussion. No rales, rhonchi or wheezes noted. No increased work of breathing, no retractions or nasal flaring. MS/ Extremity: Pulses equal, no cyanosis. Neurovascular intact. Full, normal range of motion. No pain upon palpation of dorsal or plantar surface to right foot Neuro: Awake and alert, GCS 15, oriented to person, place, time, and situation. Cranial nerves II-XII grossly intact. Motor strength 5/5 in all extremities. Sensory grossly intact. 14:50 Skin: Patient has mid bruising to dorsal foot without any other traumatic findings. Vital Signs: 14:44 BP 146 / 108; Pulse 88; Resp 19; Temp 97.7; Pulse Ox 99% on R/A; Pain 0/10; jl7 MDM: 14:45 Patient medically screened. jr8 14:53 Data reviewed: vital signs, nurses notes, and as a result, I will discharge patient. jr8 Data interpreted: Pulse oximetry: on room air is 99 %. Interpretation: normal. Counseling: I had a detailed discussion with the patient and/or guardian regarding: the historical points, exam findings, and any diagnostic results supporting the discharge/admit diagnosis, the need for outpatient follow up, a family practitioner, to return to the emergency department if symptoms worsen or persist or if there are any questions or concerns that arise at home. ED course: Discussed with family and patient that patient is able to weight-bear without any pain, has no pain with palpation and has full range of motion and is neurovascularly intact. Would not do anything at this time other than watchful waiting and let the bruise spontaneously heal. If worse at any point time to come back for further evaluation or can follow-up with her primary care. Family and patient good with this at this time.. Administered Medications: No medications were administered Disposition: 14:58 Co-signature as Attending Physician, Ike OSORIO I agree with the assessment and kdr plan of care. Disposition Summary: 02/23/22 14:46 Discharge Ordered Location: Home jr8 Problem: new jr8 Symptoms: have improved jr8 Condition: Stable jr8 Diagnosis - Contusion of right foot jr8 Followup: jr8 - With: Private Physician - When: As needed - Reason: Recheck today's complaints, Re-evaluation by your physician Discharge Instructions: - Discharge Summary Sheet jr8 - Foot Contusion jr8 Forms: - Medication Reconciliation Form jr8 - Thank You Letter jr8 - Antibiotic Education jr8 - Prescription Opioid Use jr8 Signatures: Rangel Rajput MD MD kdr Roszak, Josh, PA PA jr8 Jac Mosher RN RN jl7
--- NOTE | 2022-02-23 14:46 | ER ---
Nurse's Notes [facility] Name: Nelda Ramírez Age: 71 yrs Sex: Female : 1950 Arrival Date: 02/23/2022 Time: 14:33 Bed Waiting Private MD: Diagnosis: Contusion of right foot Presentation: 02/23 14:44 Chief complaint: Patient's son or daughter states: Bruise to top of right foot, pt jl7 denies pain, unsure what happened. Coronavirus screen: At this time, the client does not indicate any symptoms associated with coronavirus-19. Ebola Screen: No symptoms or risks identified at this time. Initial Sepsis Screen: Does the patient meet any 2 criteria? No. Patient's initial sepsis screen is negative. Does the patient have a suspected source of infection? No. Patient's initial sepsis screen is negative. Risk Assessment: Do you want to hurt yourself or someone else? Patient reports no desire to harm self or others. Onset of symptoms is unknown. 14:44 Method Of Arrival: Ambulatory jl7 14:44 Acuity: SERGIO 4 jl7 Triage Assessment: 14:46 General: Appears in no apparent distress. uncomfortable, Behavior is calm, cooperative, jl7 appropriate for age. Pain: Denies pain. Historical: - Allergies: 14:46 Aspirin; jl7 14:46 Cipro; jl7 14:46 PENICILLINS; jl7 - PMHx: 14:46 CHF; Cirrhosis; Hypertension; liver/kidney disease; short term memory loss; jl7 - Immunization history:: Client reports receiving the 2nd dose of the Covid vaccine. - Social history:: Smoking status: Patient denies any tobacco usage or history of. Screenin:43 Abuse screen: Denies threats or abuse. Denies injuries from another. Nutritional jl7 screening: No deficits noted. Tuberculosis screening: No symptoms or risk factors identified. Fall Risk No fall in past 12 months (0 pts). No IV (0 pts). Ambulatory Aid- Crutches/Cane/Walker (15 pts). Total Martínez Fall Scale indicates No Risk (0-24 pts). Assessment: 14:43 Reassessment: JO Ramires in triage assessing pt. jl7 Vital Signs: 14:44 BP 146 / 108; Pulse 88; Resp 19; Temp 97.7; Pulse Ox 99% on R/A; Pain 0/10; jl7 ED Course: 14:33 Patient arrived in ED. jl7 14:43 Patient has correct armband on for positive identification. jl7 14:45 Ike Estrada PA is PHCP. jr8 14:45 Rangel Rajput MD is Attending Physician. jr8 14:46 Triage completed. jl7 14:46 Arm band placed on right wrist. jl7 14:50 No provider procedures requiring assistance completed. Patient did not have IV access jl7 during this emergency room visit. Administered Medications: No medications were administered Outcome: 14:46 Discharge ordered by . jr8 14:50 Discharged to home ambulatory. jl7 14:50 Condition: stable 14:50 Discharge instructions given to patient, Instructed on discharge instructions, follow up and referral plans. Demonstrated understanding of instructions, follow-up care. 14:50 Patient left the ED. jl7 Signatures: Ike Estrada PA PA jr8 Jac Mosher RN RN jl7
[2022-02-23 16:48] VITALS: BP 146/108; TEMP 97.7; O2SAT 99
== END 2022-02-23 14:50 | disposition home or self-care (01) ==
LOC: ER 14:06
DX: S90.31XA Contusion of right foot, initial encounter (principal); I10 Essential (primary) hypertension; I50.9 Heart failure, unspecified; Z88.0 Allergy status to penicillin; Z88.1 Allergy status to other antibiotic agents; Z88.6 Allergy status to analgesic agent
CPT/HCPCS: 99281

== ENCOUNTER 2022-03-12 10:06 | Emergency (ER) | payer OTHER ==
--- OUTSIDE RECORDS SUMMARY | 2022-03-12 10:21 | XMS REPORT | Continuity of Care Document ---
:1950 Author Organization [facility] t Address [address] [place] [address] Care Team Providers Name Role Phone Val [...] Expiration Date S ource MEDICARE A B [id number] 2015 00:00:00 MEDICAID OF [id number] 2016 2016 [place] 00:00:00 00:00:00 MEDICARE PART A [id number] \\T\\ B - MEDICARE [facility]-MEDICAID - [id number] 2016 2017 MEDICAID 00:00:00 00:00:00 OUT OF STATE [id number] BCBS - PPO - BCBS Problems Condition Condition Condition Status Onset Resolution Last Treating Co mments Source Name Details Category Date Date Treatment Clinician Date Cirrhosis Cirrhosis Disease Active [place] [facility] (HCCode) (HCCode) 1-14 [facility] e 00:00: of 00 Medicin e Allergies, Adverse Reactions, Alerts Allergy Allergy Status Severity Reaction(s) Onset Inactive Treating Comm ents Source Name Type Date Date Clinician Ciprofreshma Propensi Active [facility] xacin ty to 05 [place] adverse 00:00: of reaction 00 Medicin s to e drug Penicill Propensi Active [facility]el ins ty to 02-18 [place] adverse 00:00: of reaction 00 Medicin s to e drug CIPROFLO Allergy Active [place] [facility] PENICILL Allergy Active [place] [facility] [place] Social History Social Habit Start Date Stop Date Quantity Comments Source Alcohol intake 2021-07-30 2021-07-30 Ex-drinker [facility] Col [facility]ge 00:00:00 00:00:00 (finding) of Medicine Tobacco use and 2017-02-18 2017-02-18 Never used [facility] Co llege exposure 00:00:00 00:00:00 of Medicine Sex [birth year] [facility] 00[facility]00:00 00:00:00 of Medicine Smoking Status Start Date Stop Date Source Never smoker [facility] o f Medicine Medications Ordered Filled Start Stop Current Ordering Indication Dosage Frequency Signature Comments Components Source Medication Medication Date Date Medication? Clinician (SIG) Name Name RifAXIMin 2020-10 Yes 1{tbl} Take 1 Tab [facility] (XIFAXAN) 0-14 by mouth Colleg [facility] 550 MG TABS 13:10: two times o f 18 daily. Medicin e spironolact 2020-10 Yes 100mg Take 100 [facility] one 0-14 mg by [place] (ALDACTONE) 13:10: mouth of 100 MG 18 daily. Medicin tablet e lactulose 2020-10 Yes 20g Take 20 g [place] [facility] (CHRONULAC) 0-14 by mouth 3 Co llege 10 GM/15ML 13:10: times of solution 18 daily. Medicin e furosemide 2020-10- No 20mg Take 20 mg [facility] (LASIX) 20 0-14 10-14 by mouth [facility]anny [facility] MG tablet 13:10: 00:00 daily. of 07 :00 Medicin e rivastigmin Yes [facility]el e 4.6 9-29 College MG/24HR 00:00: of PT24 00 Medicin e propranolol 2020- No 60mg Take 60 mg [facility] (INDERAL 3 03-04 by mouth Colleg e [place]) 60 MG 14:11: 00:00 daily. of SR capsule 49 :00 Medicin e medroxyPROG 2020- No 20mg Take 20 mg [facility] ESTERone 12-15 by mouth. Colle ge (PROVERA) 00:00: 04:59 of 10 MG 00 :00 Medicin tablet e midodrine Yes TAKE 1 [facility] (PROAMATINE 2-22 TABLET BY Col lege ) 5 MG 00:00: MOUTH of tablet 00 THREE Medicin TIMES e DAILY midodrine 2020- No TAKE 1 [facility] (PROAMATINE 2-22 10-14 TABLET BY Co llege ) 5 MG 00:00: 00:00 MOUTH of tablet 00 :00 THREE Medicin TIMES e DAILY aspirin EC 2021- No 81mg Take 81 mg [facility] 81 MG 10-25 by mouth. College tablet 00:00: 05:59 of 00 :00 Medicin e aspirin EC 2021- No 81mg Take 81 mg [facility] 81 MG 10-25 by mouth. College tablet 00:00: 05:59 of 00 :00 Medicin e furosemide Yes 20mg Take 20 mg [facility] (LASIX) 20 1-12 by mouth Colle ge MG tablet 19:21: daily. of 17 Medicin e RifAXIMin Yes 1{tbl} Take 1 Tab [facility] (XIFAXAN) 1-12 by mouth Colleg e 550 MG TABS 19:21: two times o f 17 daily. Medicin e spironolact Yes 100mg Take 100 [facility] one 1-12 mg by [place] (ALDACTONE) 19:21: mouth of 100 MG 17 daily. Medicin tablet e lactulose Yes 20g Take 20 g [place] [facility] (CHRONULAC) 1-12 by mouth 3 Co llege 10 GM/15ML 19:21: times of solution 17 daily. Medicin e Immunizations Ordered Immunization Filled Immunization Date Status Commen ts Source Name Name Influenza Hd 2020-08-15 Completed [facility] ge 00:00:00 of Medicine Zoster Recombinant 2020-08-15 Completed [facility] 00:00:00 of Medicine Influenza Hd 2020-08-15 Completed [facility] ge 00:00:00 of Medicine Zoster Recombinant 2020-08-15 Completed [facility] 00:00:00 of Medicine Pneumococcal 2019-09-06 Completed [facility] ge Polysaccharide 00:00:00 of Medicin e Pneumococcal 2019-09-06 Completed [facility] ge Polysaccharide 00:00:00 of Medicin e [...] kg Systolic blood 2021-07-30 18:08:00 129 mm[Hg] [facility] pressure Medicine Diastolic blood 2021-07-30 18:08:00 67 mm[Hg] [facility] Medicine Heart rate 2021-07-30 18:08:00 86 /min [facility] Body temperature 2021-07-30 18:08:00 36.78 [facility] HEIGHT 2021-03-17 15:32:00 167.6 cm WEIGHT 2021-03-17 [...] kg Systolic blood 2020-12-18 14:11:00 115 mm[Hg] [facility] pressure Medicine Diastolic blood 2020-12-18 14:11:00 56 mm[Hg] [facility] Medicine Heart rate 2020-12-18 14:11:00 92 /min [facility] Respiratory rate 2020-12-18 14:11:00 17 /min [facility] HEIGHT 2020-12-09 21:00:00 167.6 cm WEIGHT 2020-12-09 [...] of Medici ne colon (procedure) [code = 332426629] Future Scheduled 2021-07-30 Screening for [facility] Col [facility]ge of Test 13:08:55 malignant neoplasm of Medici ne breast (procedure) [code = 500133443] Future Scheduled 2021-07-30 COVID-19 Vaccine (1) [facility] of Test 13:08:55 [code = COVID-19 Medicine Vaccine (1)] Future Scheduled 2021-07-30 TETANUS SHOT (ADULT) [facility] of Test 13:08:55 [code = TETANUS SHOT Medicin e (ADULT)] Future Scheduled 2021-07-30 Hepatitis C screening [facility] Test 13:08:55 (procedure) [code = Medicine 717504097] Future Scheduled 2021-07-30 MEDICARE AWV (Initial) B [facility] of Test 13:08:55 [code = MEDICARE AWV Medicin e (Initial)] Future Scheduled 2021-07-30 FALL SCREEN [code = [facility] of Test 13:08:55 FALL SCREEN] Medicine Future Scheduled 2021-07-30 Screening for [facility] Col lege of Test 13:08:55 osteoporosis Medicine (procedure) [code = 388592425] Future Scheduled 2021-07-30 ZOSTER VACCINE (2 of [facility] of Test 13:08:55 2) [code = ZOSTER Medicine VACCINE (2 of 2)] Future Scheduled 2021-07-30 FLU VACCINE > 6 MONTHS B [facility] of Test 13:08:55 [code = FLU VACCINE > Medici ne 6 MONTHS] Future Scheduled [facility] Test SCREENING: COLONOSCOPY Medic ine [code = COLON CANCER SCREENING: COLONOSCOPY] Future Scheduled COVID-19 Vaccine [facility] of Test Evaluation [code = Medicine COVID-19 Vaccine Evaluation] Future Scheduled MAMMOGRAM ANNUAL [code B [facility] of Test = MAMMOGRAM ANNUAL] Medicine Future Scheduled TETANUS SHOT (ADULT) [facility] of Test [code = TETANUS SHOT Medicin e (ADULT)] Future Scheduled HEPATITIS C SCREENING [facility] Test [code = HEPATITIS C Medicine SCREENING] Future Scheduled MEDICARE AWV (Initial) B [facility] of Test [code = MEDICARE AWV Medicin e (Initial)] Future Scheduled FALL SCREEN [code = [facility] Test FALL SCREEN] Medicine Future Scheduled OSTEOPOROSIS SCREENING B [facility] Test [code = OSTEOPOROSIS Medicin e SCREENING] Future Scheduled ZOSTER VACCINE (2 of [facility] of Test 2) [code = ZOSTER Medicine VACCINE (2 of 2)] Encounters Start End Encounter Admission Attending Care Care Encounter Source Date/Time Date/Time Type Type Clinicians Facility Department ID 2021-07-25 Outpatient TYRONE, [facility] Surgery [id number] [facility] 17:58:27 ADITI 2021-07-25 [facility] [id number] [facility] 07:51:27 BOBBY 2020-12-09 Inpatient ER [facility] [id number] SLE 20:16:00 [facility] 2022-03-29 2022-03-29 Outpatient [facility] [id number] SLE 00:00:00 00:00:00 2021-11-23 2021-11-23 [facility] [id number] [facility] 08:55:00 12:10:00 PRAS 2021-11-18 2021-11-18 Outpatient EL [facility] [id number] SLE 15:05:50 23:59:00 2021-10-15 2021-10-15 Outpatient EL HUGO [facility] [id number] SLE 13:19:59 23:59:00 TIMO 2021-10-13 2021-10-13 Outpatient EL HUGO [facility] [id number] [facility] 00:00:00 00:00:00 TIMO 2021-09-21 2021-09-21 Outpatient EL HUGO [facility] [id number] [facility] 08:26:43 08:26:43 TIMO 2021-08-06 2021-08-06 Outpatient [facility] [id number] [facility] 00:00:00 00:00:00 2021-07-30 2021-07-30 Office JOE MATIAS [id number] [facility] 12:13:14 13:48:55 Visit RAISSA AMBULATOR [id number] College Y [id number] Medi rosi 300 e 2021-07-14 2021-07-14 Outpatient EL [facility] [id number] [facility] 00:00:00 00:00:00 2021-04-16 2021-04-16 Outpatient SLEH [facility] [id number] [facility] 00:00:00 00:00:00 2021-03-17 2021-03-17 Emergency ER SLE Emergency [id number] [facility] 15:10:00 15:10:00 2021-03-02 2021-03-02 Emergency ER [facility] Emergency [id number] [facility] 10:16:00 10:16:00 2021-02-28 2021-02-28 Emergency ER [facility] Emergency [id number] [facility] 12:34:00 12:34:00 2021-02-25 2021-02-25 Outpatient EL [facility] [id number] [facility] 00:00:00 00:00:00 2021-02-06 2021-02-06 Outpatient EL HILTONLAKwabena, [facility]H [facility] [id number] [facility] 00:00:00 00:00:00 PRASUN 2021-02-04 2021-02-04 Outpatient EL [facility] [id number] [facility] 00:00:00 00:00:00 2021-02-04 2021-02-04 Outpatient EL [facility] [id number] [facility] 00:00:00 00:00:00 2021-01-29 2021-01-29 Outpatient EL HARI, [facility] [id number] [facility] 00:00:00 00:00:00 PRASUN 2021-01-22 2021-01-22 Outpatient EL LELANDL, [facility] [id number] [facility] 00:00:00 00:00:00 PRASUN 2021-01-15 2021-01-15 Outpatient EL [facility] [id number] [facility] 00:00:00 00:00:00 2020-12-18 2020-12-18 Office JOE Matias [id number] [facility] 07:46:17 07:56:17 Visit Raissa AMBULATOR 350.1.13.21 College Y 0.2.7.2.686 [facility] [id number] [facility] 300 e 2020-12-05 2020-12-05 Outpatient SLEH SLE [id number] [facility] 00:00:00 00:00:00 2020-11-26 2020-11-26 Emergency ER SLE Emergency [id number] [facility] 08:57:00 08:57:00 2020-10-23 2020-10-23 Emergency ER SLE Emergency [id number] [facility] 14:38:00 14:38:00 2020-09-27 2020-09-27 Emergency ER SLE Emergency [id number] [facility] 10:04:00 10:04:00 2020-08-06 2020-08-06 Outpatient EL SLE SLE [id number] SLE 00:00:00 00:00:00 2020-07-30 2020-07-30 Outpatient EL SLE SLE [id number] [facility] 00:00:00 00:00:00 2020-07-28 2020-07-28 Outpatient EL SLE SLE [id number] [facility] 00:00:00 00:00:00 2020-02-14 2020-02-14 [id number] 00:00:00 00:00:00 [id number] Results Test Description Test Time Test Comments Results Result [facility] e Comments TISSUE EXAM 2021-11-25 Surgical Pathology 19:02:37 Report Case: [id number] Authorizing Provider: Obed James MD Collected: 11/23/2021 10:57 AM Ordering Location: [facility] Endoscopy Received: 11/23/2021 03:54 PM Services Pathologist: Clarissa Romo MD Specimen: Stomach, Antrum, random biopsies STOMACH, ANTRUM, BIOPSY: - REACTIVE GASTROPATHY - NO HELICOBACTER PYLORI MICROORGANISM IDENTIFIED BY ROUTINE STAINCC/pl Signing Pathologist Direct Phone Line: [phone] tarah signed by Clarissa Romo MD on 11/25/2021 at 7:02 [id number] varices without bleedingStomach, antrumReceived in formalin labeled the patient's name, accession number and "stomach, antrum" are 4 eng soft tissue fragments measuring up to 0.3 cm in greatest dimension which are filtered and submitted in toto in A1.JO Dumont, HT ([facility])Performed MR, ABDOMEN, WITH 2021-10-20 DR JAMES 12:08:00 Referring: Eric Neal Review [facility], cirrhosis, [facility] hcc screening CENTERName: Unlisted Reason FRANCO SINGLETARY for Exam - Click KEREN : Yes and Enter 1950 Reason Below->No Sex: Anesthesia:->Non F e Deos the patient have an FI implanted NAL REPORT PATIENT electronic ID: [id number] device?->No TECHNIQUE: MRI of the abdomen WITHOUT [...] 5.Interstitial fibrosis of the lungs. Signed: Tonya Cadena MDReport Verified Date/Time: 10/20/2021 12:08:05 Reading Location: [facility] Diagnostic Imaging Reading Room - [place] [address] A FETOPROTEIN (AFP), TUMOR MARKER 2021-09-21 11:34:32 Test Item Value Reference Range Interpretation Comme nts ALPHA-FETOPROTEIN (BEAKER) (test code = 1094) 3.0 ng/mL <10.0 Audio Visual Equipment Rental Clerk ID - ALIZA MBASIC METABOLIC [id number] 11:21:11 Test Item Value Reference Range Interpretation [...] S NOT APPLICABLE FOR DIALYSIS PATIEN TS. Audio Visual Equipment Rental Clerk ID - ALIZA Alfaroecimen slightly ictericHEPATIC FUNCTION [id number] 11:21:11 Test Item Value Reference Range Interpretation [...] (test code = 14 U/L 6-55 347) Audio Visual Equipment Rental Clerk WENDY Ayoubimealex slightly ictericPROTHROMBIN [id number] 11:06:41 Test Item Value Reference Range Interpretation Comments PROTIME (BEAKER) 15.8 seconds 11.9-14.2 H (test code = 759) INR (BEAKER) (test 1.28 See_Comment [Automat ed message] code = 370) The system [employer] generated this result transmitted ref erence range: [...] = 2801) RAD, CHEST, 1 VIEW, NON [id number] 21:17:00DR HILTONLALReferring: Dr. Eric Morel for exam:->[facility] 1950 Sex: FFINAL [...] Verified Date/Time: 03/17/2021 21:17:55 HIGH SENSITIVITY TROPONIN [id number] 20:30:00 Test Item Value Reference Range Interpretation Comments HIGH SENSITIVITY 10 pg/ml See_Comment [Automated message] TROPONIN I (test code = The system which [id number]) generated this result transmitted ref erence range: <=17. Th e reference range was not used to int erpret this result as normal/abnormal . Audio Visual Equipment Rental Clerk ID - BSThe HEAT TRANSFER TECHNICIAN STAT High Sensitivity Troponin-I results should be used in conjunctionwith other diagnostic information such as ECG, clinical observations and information, and patient symptoms to aid in the diagnosis of OK.[id number] 20:26:00 Test Item Value Reference Range Interpretation Comments MAGNESIUM (HAO) (test code = 1.9 mg/dL 1.6-2.6 627) Audio Visual Equipment Rental Clerk ID - BSBASIC METABOLIC [id number] 20:26:00 Test Item Value Reference Range Interpretation [...] S NOT APPLICABLE FOR DIALYSIS PATIEN TS. Audio Visual Equipment Rental Clerk ID - BSSpecimen slightly ictericCBC W/PLT COUNT [...] (BEAKER) (test code = 2801) COMPREHENSIVE METABOLIC [id number] 06:35:00 Test Item Value Reference Range Interpretation [...] S NOT APPLICABLE FOR DIALYSIS PATIEN TS. Audio Visual Equipment Rental Clerk ID - ALIZA [id number] 06:35:00 Test Item Value Reference Range Interpretation Comments MAGNESIUM (BEAKER) (test code = 2.0 mg/dL 1.6-2.6 627) Audio Visual Equipment Rental Clerk ID - ALIZA MPROTHROMBIN [id number] 06:12:00 Test Item Value Reference Range Interpretation Comments PROTIME (BEAKER) 18.1 seconds 11.9-14.2 H (test code = 759) INR (BEAKER) (test 1.56 See_Comment [Automat ed message] code = 370) The system [employer] generated this result transmitted ref erence range: [...] PERCENT (BEAKER) (test code = 2801) PROTHROMBIN [id number] 04:57:00 Test Item Value Reference Range Interpretation Comments PROTIME (BEAKER) 19.0 seconds 11.9-14.2 H (test code = 759) INR (BEAKER) (test 1.64 See_Comment [Automat ed message] code = 370) The system [employer] generated this result transmitted ref erence range: <=5.90. The reference range was not used to int erpret this result as normal/abnormal . RECOMMENDED COUMADIN/WARFARIN INR THERAPY RANGESSTANDARD DOSE: 2.0 - 3.0 Includes: PROPHYLAXIS forvenous thrombosis, systemic embolization; TREATMENT for venous thrombosis and/or pulmonary embolus.HIGH RISK: Target INR is 2.5-3.5 for patients with mechanical heart valves.COMPREHENSIVE METABOLIC [id number] 04:51:00 Test Item Value Reference Range Interpretation [...] S NOT APPLICABLE FOR DIALYSIS PATIEN TS. Audio Visual Equipment Rental Clerk ID - ALIZA [id number] 04:51:00 Test Item Value Reference Range Interpretation Comments MAGNESIUM (BEAKER) (test code = 2.2 mg/dL 1.6-2.6 627) Audio Visual Equipment Rental Clerk ID - ALIZA MCBC W/PLT COUNT & AUTO [id number] 04:32:00 Test Item Value Reference Range Interpretation [...] (BEAKER) (test code = 2801) COMPREHENSIVE METABOLIC [id number] 04:29:00 Test Item Value Reference Range Interpretation [...] S NOT APPLICABLE FOR DIALYSIS PATIEN TS. Audio Visual Equipment Rental Clerk ID - [id number] 04:29:00 Test Item Value Reference Range Interpretation Comments MAGNESIUM (BEAKER) (test code = 2.1 mg/dL 1.6-2.6 627) Audio Visual Equipment Rental Clerk ID - ADMINCBC W/PLT COUNT & AUTO [id number] 04:04:00 Test Item Value Reference Range Interpretation [...] (BEAKER) (test code = 2801) COMPREHENSIVE METABOLIC [id number] 06:26:00 Test Item Value Reference Range Interpretation [...] S NOT APPLICABLE FOR DIALYSIS PATIEN TS. Audio Visual Equipment Rental Clerk ID - ALIZA [id number] 06:26:00 Test Item Value Reference Range Interpretation Comments MAGNESIUM (BEAKER) (test code = 2.1 mg/dL 1.6-2.6 627) Audio Visual Equipment Rental Clerk WENDY ABRAMS MCBC W/PLT COUNT & AUTO [id number] 05:06:00 Test Item Value Reference Range Interpretation [...] 0-1 PERCENT (BEAKER) (test code = 2801) [id number] 07:39:00 Test Item Value Reference Range Interpretation Comments MAGNESIUM (BEAKER) 2.0 mg/dL 1.6-2.6 Specimen moderately (test code = 627) hemolyzed Audio Visual Equipment Rental Clerk ID - EDASICOMPREHENSIVE METABOLIC [id number] 07:39:00 Test Item Value Reference Range Interpretation [...] S NOT APPLICABLE FOR DIALYSIS PATIEN TS. Audio Visual Equipment Rental Clerk ID - EDASICBC W/PLT COUNT & AUTO [id number] 07:16:00 Test Item Value Reference Range Interpretation [...] PERCENT (BEAKER) (test code = 2801) PROTHROMBIN [id number] 07:08:00 Test Item Value Reference Range Interpretation Comments PROTIME (BEAKER) 20.0 seconds 11.9-14.2 H (test code = 759) INR (BEAKER) (test 1.75 See_Comment [Automat ed message] code = 370) The system [employer] generated this result transmitted ref erence range: <=5.90. The reference range was not used to int erpret this result as normal/abnormal . RECOMMENDED COUMADIN/WARFARIN INR THERAPY RANGESSTANDARD DOSE: 2.0 - 3.0 Includes: PROPHYLAXIS forvenous thrombosis, systemic embolization; TREATMENT for venous thrombosis and/or pulmonary embolus.HIGH RISK: Target INR is 2.5-3.5 for patients with mechanical heart valves.BODY FLUID CULTURE + GRAM [id number] 14:00:00 Test Item Value Reference Range Interpretation Comments CULTURE (BEAKER) (test code No growth = 1095) GRAM STAIN RESULT (BEAKER) 2+ WBCs (test code = 1123) GRAM STAIN RESULT (BEAKER) No organisms seen (test code = 583266) URINALYSIS W/ [id number] 09:34:00 Test Item Value Reference Range Interpretation [...] = 516) SOURCE(BEAKER) (test code = 2795) Audio Visual Equipment Rental Clerk ID - [auto]Audio Visual Equipment Rental Clerk ID - techPROTEIN, RANDOM [id number] 09:05:00 Test Item Value Reference Range Interpretation Comments PROTEIN, URINE (BEAKER) (test code = < mg/dL 0-14 1569) Audio Visual Equipment Rental Clerk ID - AAHAMIDCREATININE, RANDOM [id number] 08:44:00 Test Item Value Reference Range Interpretation [...] S NOT APPLICABLE FOR DIALYSIS PATIEN TS. Audio Visual Equipment Rental Clerk ID - ALIZA [id number] 05:59:00 Test Item Value Reference Range Interpretation Comments MAGNESIUM (BEAKER) (test code = 1.8 mg/dL 1.6-2.6 627) Audio Visual Equipment Rental Clerk ID - ALIZA [id number] 05:59:00 Test Item Value Reference Range Interpretation Comments PHOSPHORUS (BEAKER) (test code = 2.5 mg/dL 2.3-4.7 604) Audio Visual Equipment Rental Clerk ID - ALIZA MB-TYPE NATRIURETIC FACTOR (BNP)2021-03-05 04:42:00 Test Item Value Reference Range Interpretation Comments B-TYPE NATRIURETIC PEPTIDE (BEAKER) 114 pg/mL 0-100 H (test code = 700) Audio Visual Equipment Rental Clerk ID - MURALI LSARS-COV2/RT-PCR ([facility])2021-03-03 19:44:00 Test Item Value Reference Range Interpretation Comments SARS-COV2/RT-PCR (test Negative Not Detected, Negative, code = 0825517) See external report for linked test SARS-COV-2 PERFORMING LAB [facility] (test code = 4771246) Negative result for this test determines that [...] the Cheema SARS-CoV-2 assay.Fact Sheet for Healthcare Providers:https://www.Xiu.com.cheema/derrick/ CW_HVCW-PhR-5_AND_Qhtv_Mossr_87-516861.pdfFact Sheet for Healthcare Patients:https://www.Xiu.com.ab lauryn/derrick/AD_WDZC-UsR-2_Skpublk_Dfbj_Tnxyh_KF_77-583309P2.pdfPerforming Laboratory:[address] [address] PROTEIN, BODY [id number] 10:21:00 Test Item Value Reference Range Interpretation Comments PROTEIN FLUID (BEAKER) (test code = 0.9 g/dL 579) Absence of reference range indicates that normals have not been defined.Assay performance has not been validated for this type of specimen.Audio Visual Equipment Rental Clerk ID - [id number] DEHYDROGENASE (LDH), BODY [id number] 09:59:00 Test Item Value Reference Range Interpretation Comments LACTATE DEHYDROGENASE FLUID (BEAKER) 53 U/L (test code = 634) Absence of reference range indicates that normals have not been defined.Assay performance has not been validated for this type of specimen.Audio Visual Equipment Rental Clerk ID - [id number] 04:33:00 Test Item Value Reference Range Interpretation Comments MAGNESIUM (BEAKER) 1.8 mg/dL 1.6-2.6 Specimen slightly (test code = 627) hemolyzed Audio Visual Equipment Rental Clerk ID - ALIZA MBASIC METABOLIC [id number] 04:33:00 Test Item Value Reference Range Interpretation [...] S NOT APPLICABLE FOR DIALYSIS PATIEN TS. Audio Visual Equipment Rental Clerk ID - ALIZA MSpecimen slightly ictericHEPATIC FUNCTION [id number] 04:33:00 Test Item Value Reference Range Interpretation [...] Specimen slightly (test code = 347) hemolyzed Audio Visual Equipment Rental Clerk WENDY ABRAMS MSpecimen slightly ictericPROTHROMBIN [id number] 04:26:00 Test Item Value Reference Range Interpretation Comments PROTIME (BEAKER) 17.4 seconds 11.9-14.2 H (test code = 759) INR (BEAKER) (test 1.47 See_Comment [Automat ed message] code = 370) The system [employer] generated this result transmitted ref erence range: [...] mechanical heart valves.CBC W/PLT COUNT & AUTO [id number] 04:13:00 Test Item Value Reference Range Interpretation [...] code = 2801) URINALYSIS W/ REFLEX URINE [id number] 01:51:00 Test Item Value Reference Range Interpretation [...] code = 1584) SOURCE(BEAKER) (test code = 8035) Audio Visual Equipment Rental Clerk ID - [auto]Audio Visual Equipment Rental Clerk ID - techB-TYPE NATRIURETIC FACTOR (BNP)2021-03-03 00:25:00 Test Item Value Reference Range Interpretation Comments B-TYPE NATRIURETIC PEPTIDE (BEAKER) 140 pg/mL 0-100 H (test code = 700) Audio Visual Equipment Rental Clerk ID - DBBODY FLUID CELL COUNT WITH [id number] 19:42:00 Test Item Value Reference Range Interpretation [...] Tube (BEAKER) (test code = 2873) U/S, [id number] 18:21:00DR HILTONLAKYMeferring: Dr. Eric Lindesyabs to be ordered:->Body Fluid Culture (w/Gram Stain, C\\T\\S)Labsto be ordered:- >Glucose+LDH+ProteinLabs to be ordered:->Cell CountReason for exam:- >[facility] : 1950 Sex: FFINAL REPORT Ultrasound guided paracentesis, 03/02/2021. Clini nathan History: Ascites. Sedation: None. [employer] Professor: Tracie. Assorter: None. Estimated Blood Loss: < 1 cc. [...] was achieved with 1% lidocaine, a 5 Khmer one-step catheter was advanced into the peritoneal cavity under ultrasound guidance. After completion of drainage, the catheter was removed. There was no evidence of complication. Patient Disposition: The patient was discharged from the ultrasound department after the paracentesis, in good condition. Impression:Successful ultrasound guided paracentesis. Signed:Jordon Martinez Verified Date/Time: 03/02/2021 18:21:14 Reading Location: [place] [address] Ang[employer]Body Reading Room BASIC METABOLIC [id number] 15:12:00 Test Item Value Reference Range Interpretation [...] S NOT APPLICABLE FOR DIALYSIS PATIEN TS. Audio Visual Equipment Rental Clerk ID - DBSpecimen slightly ictericHEPATIC FUNCTION [id number] 15:12:00 Test Item Value Reference Range Interpretation [...] (test code = 13 U/L 6-55 347) Audio Visual Equipment Rental Clerk ID - DBSrustam kim [id number] 15:08:00 Test Item Value Reference Range Interpretation Comments PARTIAL THROMBOPLASTIN TIME 36.1 seconds 22.5-36.0 H (BEAKER) (test code = 760) PROTHROMBIN TIME/[id number] 15:07:00 Test Item Value Reference Range Interpretation Comments PROTIME (BEAKER) 17.3 seconds 11.9-14.2 H (test code = 759) INR (BEAKER) (test 1.46 See_Comment [Automat ed message] code = 370) The system [employer] generated this result transmitted ref erence range: [...] mechanical heart valves.CBC W/PLT COUNT & AUTO [id number] 14:53:00 Test Item Value Reference Range Interpretation [...] (BEAKER) (test code = 2801) COMPREHENSIVE METABOLIC [id number] 14:28:00 Test Item Value Reference Range Interpretation [...] S NOT APPLICABLE FOR DIALYSIS PATIEN TS. Audio Visual Equipment Rental Clerk ID - EDASIPROTHROMBIN TIME/[id number] 14:14:00 Test Item Value Reference Range Interpretation Comments PROTIME (BEAKER) 17.1 seconds 11.9-14.2 H (test code = 759) INR (BEAKER) (test 1.43 See_Comment [Automat ed message] code = 370) The system [employer] generated this result transmitted ref erence range: [...] mechanical heart valves.CBC W/PLT COUNT & AUTO [id number] 14:10:00 Test Item Value Reference Range Interpretation [...] (BEAKER) (test code = 2801) MR, ABDOMEN, [id number] 11:27:00DR JAMES Referring: Dr. Eric Neal LIVER PROTOCOL PLEASE FAX RESULTS TO OMI WALL NP AT [phone]. LIVER PROTOCOL PLEASE FAX RESULTS TO OMI WALL NP AT [phone]. [facility] : 1950 Sex: FFINAL [...] MDReport Verified Date/Time: 02/09/2021 11:27:04 Reading Location: [facility] Diagnostic Imaging Reading Room - [place] [address] ALPHA FETOPROTEIN (AFP), TUMOR [id number] 13:26:00 Test Item Value Reference Range Interpretation Comments ALPHA-FETOPROTEIN (BEAKER) (test 2.1 ng/mL <10.0 code = 1094) Audio Visual Equipment Rental Clerk ID Shakir MADAY FBASIC METABOLIC [id number] 13:09:00 Test Item Value Reference Range Interpretation [...] S NOT APPLICABLE FOR DIALYSIS PATIEN TS. Audio Visual Equipment Rental Clerk ID Shakir OLSEN FSpecimen slightly ictericHEPATIC FUNCTION [...] (test code = 16 U/L 6-55 347) Audio Visual Equipment Rental Clerk ID - MADAY FSpecimen slightly ictericPROTHROMBIN TIME/[id number] 13:03:00 Test Item Value Reference Range Interpretation Comments PROTIME (BEAKER) 17.1 seconds 11.9-14.2 H (test code = 759) INR (BEAKER) (test 1.43 See_Comment [Automat ed message] code = 370) The system [employer] generated this result transmitted ref erence range: [...] mechanical heart valves.CBC W/PLT COUNT & AUTO [id number] 12:39:00 Test Item Value Reference Range Interpretation [...] PERCENT (BEAKER) (test code = 2801) BLOOD [id number] 00:00:00 Test Item Value Reference Range Interpretation Comments CULTURE (BEAKER) (test No growth in 5 days code = 1095) POCT-GLUCOSE [id number] 17:00:00 Test Item Value Reference Range Interpretation Comments POC-GLUCOSE METER 154 mg/dL 70-110 H : TESTED A T [facility] 6720 (BEAKER) (test code = EDI JETT [place], 1538) [address]: Audio Visual Equipment Rental Clerk/Techni juan antonio ID = [id number] for OR COLEMAN EDMONDS POCT-GLUCOSE [id number] 11:33:00 Test Item Value Reference Range Interpretation Comments POC-GLUCOSE METER 126 mg/dL 70-110 H : TESTED A T [facility] 6720 (BEAKER) (test code = EDI Hines [facility], 1538) 55[address]: Audio Visual Equipment Rental Clerk/Techni juan antonio ID = [id number] for COLEMAN OQUENDO BLOOD [id number] 09:00:00 Test Item Value Reference Range Interpretation Comments CULTURE (BEAKER) (test No growth in 5 days code = 1095) POCT-GLUCOSE [id number] 08:14:00 Test Item Value Reference Range Interpretation Comments POC-GLUCOSE METER 97 mg/dL 70-110 : TESTED A T [facility] 6720 (BEAKER) (test code = EDI Hines [facility], 1538) 790[address]: Audio Visual Equipment Rental Clerk/Techni juan antonio ID = [id number] for COLEMAN KRAFT COMPREHENSIVE METABOLIC [id number] 05:20:00 Test Item Value Reference Range Interpretation [...] S NOT APPLICABLE FOR DIALYSIS PATIEN TS. Audio Visual Equipment Rental Clerk ID - ALIZA MSpecimen slightly ictericCBC W/PLT COUNT & AUTO [id number] 04:42:00 Test Item Value Reference Range Interpretation [...] 0-1 PERCENT (BEAKER) (test code = 2801) [id number] 04:34:00 Test Item Value Reference Range Interpretation Comments PARTIAL THROMBOPLASTIN TIME 41.4 seconds 22.5-36.0 H (BEAKER) (test code = 760) PROTHROMBIN TIME/[id number] 04:33:00 Test Item Value Reference Range Interpretation Comments PROTIME (BEAKER) 18.5 seconds 11.9-14.2 H (test code = 759) INR (BEAKER) (test 1.59 See_Comment [Automat ed message] code = 370) The system [employer] generated this result transmitted ref erence range: <=5.90. The reference range was not used to int erpret this result as normal/abnormal . Effective 03/14/2019: PT Reference Range ChangeNew: 11.9-14.2 Previous: 11.7- 14.7RECOMMENDED COUMADIN/WARFARIN INR THERAPY RANGESSTANDARD DOSE: 2.0-3.0 Includes: PROPHYLAXIS for venous thrombosis, systemic embolization; TREATMENT for venous thrombosis and/or pulmonary embolus.HIGH RISK: Target INR is2.5-3.5 for patients wiht mechanical heart valves.POCT-GLUCOSE [id number] 20:49:00 Test Item Value Reference Range Interpretation Comments POC-GLUCOSE METER 182 mg/dL 70-110 H : TESTED A T [facility] 6720 (BEAKER) (test code = EDI JET[place], 1538) 34[address]: Audio Visual Equipment Rental Clerk/Techni juan antonio ID = [id number] for REGGIE RICHARD POCT-GLUCOSE [id number] 17:45:00 Test Item Value Reference Range Interpretation Comments POC-GLUCOSE METER 136 mg/dL 70-110 H : TESTED A T [facility] 6720 (BEAKER) (test code = [facility], 1538) 88877: Audio Visual Equipment Rental Clerk/Techni juan antonio ID = [id number] for Lu Mcrae POCT-GLUCOSE [id number] 11:31:00 Test Item Value Reference Range Interpretation Comments POC-GLUCOSE METER 142 mg/dL 70-110 H : TESTED A T [facility] 6720 (BEAKER) (test code = [facility], 1538) 47950: Audio Visual Equipment Rental Clerk/Techni juan antonio ID = [id number] for Lu Mcrae POCT-GLUCOSE [id number] 08:36:00 Test Item Value Reference Range Interpretation Comments POC-GLUCOSE METER 93 mg/dL 70-110 : TESTED A T [facility] 6720 (BEAKER) (test code = [facility], 1538) 49500: Audio Visual Equipment Rental Clerk/Techni juan antonio ID = [id number] for CHINO MUNOZ COMPREHENSIVE METABOLIC [id number] 06:31:00 Test Item Value Reference Range Interpretation [...] S NOT APPLICABLE FOR DIALYSIS PATIEN TS. Audio Visual Equipment Rental Clerk ID - ALIZA MSpecimen slightly ictericU/S, RENAL, [id number] 06:29:00DR JALALReferring: Dr. Eric Morel for exam:->JOSE MANUEL left hydronephrosisCOMM[facility]Name: [facility] : 1950 Sex: FFINAL [...] right upper quadrant ascites.Liver cirrhosis. Signed: Amy Villavicencioort Verified Date/Time: 12/14/2020 06:29:34 PROTHROMBIN TIME/[id number] 06:09:00 Test Item Value Reference Range Interpretation Comments PROTIME (BEAKER) 19.3 seconds 11.9-14.2 H (test code = 759) INR (BEAKER) (test 1.67 See_Comment [Automat ed message] code = 370) The system [employer] generated this result transmitted ref erence range: <=5.90. The reference range was not used to int erpret this result as normal/abnormal . Effective 03/14/2019: PT Reference Range ChangeNew: 11.9-14.2 Previous: 11.7- 14.7RECOMMENDED COUMADIN/WARFARIN INR THERAPY RANGESSTANDARD DOSE: 2.0-3.0 Includes: PROPHYLAXIS for venous thrombosis, systemic embolization; TREATMENT for venous thrombosis and/or pulmonary embolus.HIGH RISK: Target INR is2.5-3.5 for patients wiht mechanical heart valves.[id number] 06:09:00 Test Item Value Reference Range Interpretation Comments PARTIAL THROMBOPLASTIN TIME 44.9 seconds 22.5-36.0 H (BEAKER) (test code = 760) CBC W/PLT COUNT & AUTO [id number] 06:05:00 Test Item Value Reference Range Interpretation [...] PERCENT (BEAKER) (test code = 2801) POCT-GLUCOSE [id number] 21:09:00 Test Item Value Reference Range Interpretation Comments POC-GLUCOSE METER 180 mg/dL 70-110 H : TESTED A T [facility] 6720 (BEAKER) (test code = [facility] 1538) 715[address]: Audio Visual Equipment Rental Clerk/Techni juan antonio ID = [id number] for KATIE LOO POCT-GLUCOSE [id number] 18:29:00 Test Item Value Reference Range Interpretation Comments POC-GLUCOSE METER 120 mg/dL 70-110 H : TESTED A T [facility] 6720 (BEAKER) (test code = [facility], 1538) 52750: Audio Visual Equipment Rental Clerk/Techni juan antonio ID = [id number] for Lu Mcrae POCT-GLUCOSE [id number] 12:18:00 Test Item Value Reference Range Interpretation Comments POC-GLUCOSE METER 106 mg/dL 70-110 : TESTED A T [facility] 6720 (BEAKER) (test code = [facility], 1538) 39494: Audio Visual Equipment Rental Clerk/Techni juan antonio ID = [id number] for Lu Mcrae POCT-GLUCOSE [id number] 09:32:00 Test Item Value Reference Range Interpretation Comments POC-GLUCOSE METER 94 mg/dL 70-110 : TESTED A T [facility] 6720 (BEAKER) (test code = [facility], [facility]) 43562: Audio Visual Equipment Rental Clerk/Techni juan antonio ID = [id number] for CHINO MUNOZ POCT-GLUCOSE [id number] 06:00:00 Test Item Value Reference Range Interpretation Comments POC-GLUCOSE METER 124 mg/dL 70-110 H : TESTED A T [facility] 6720 (BEAKER) (test code = [facility], [facility]) 37647: Audio Visual Equipment Rental Clerk/Techni juan antonio ID = [id number] for YONI DOLAN COMPREHENSIVE METABOLIC [id number] 02:50:00 Test Item Value Reference Range Interpretation [...] S NOT APPLICABLE FOR DIALYSIS PATIEN TS. Audio Visual Equipment Rental Clerk ID - ALIZA MSpecimen slightly ictericPROTHROMBIN TIME/[id number] 02:41:00 Test Item Value Reference Range Interpretation Comments PROTIME (BEAKER) 19.5 seconds 11.9-14.2 H (test code = 759) INR (BEAKER) (test 1.70 See_Comment [Automat ed message] code = 370) The system [employer] generated this result transmitted ref erence range: <=5.90. The reference range was not used to int erpret this result as normal/abnormal . Effective 03/14/2019: PT Reference Range ChangeNew: 11.9-14.2 Previous: 11.7- 14.7RECOMMENDED COUMADIN/WARFARIN INR THERAPY RANGESSTANDARD DOSE: 2.0-3.0 Includes: PROPHYLAXIS for venous thrombosis, systemic embolization; TREATMENT for venous thrombosis and/or pulmonary embolus.HIGH RISK: Target INR is2.5-3.5 for patients wiht mechanical heart valves.[id number] 02:41:00 Test Item Value Reference Range Interpretation Comments PARTIAL THROMBOPLASTIN TIME 45.0 seconds 22.5-36.0 H (BEAKER) (test code = 760) CBC W/PLT COUNT & AUTO [id number] 02:28:00 Test Item Value Reference Range Interpretation [...] (BEAKER) (test code = 2801) HEMOGLOBIN AND [id number] 02:16:00 Test Item Value Reference Range Interpretation Comments HEMOGLOBIN (BEAKER) (test code = 8.2 GM/DL 11.2-15.7 L 410) HEMATOCRIT (BEAKER) (test code = 26.3 % 34.1-44.9 L 411) POCT-GLUCOSE [id number] 23:32:00 Test Item Value Reference Range Interpretation Comments POC-GLUCOSE METER 127 mg/dL 70-110 H : TESTED A T [facility] 6720 (BEAKER) (test code = [facility], 1538) 04233: Audio Visual Equipment Rental Clerk/Techni juan antonio ID = [id number] for KATIE LOO HEMOGLOBIN AND [id number] 18:28:00 Test Item Value Reference Range Interpretation Comments HEMOGLOBIN (BEAKER) (test code = 8.2 GM/DL 11.2-15.7 L 410) HEMATOCRIT (BEAKER) (test code = 26.7 % 34.1-44.9 L 411) Audio Visual Equipment Rental Clerk ID - [id number] ID - [id number]-GLUCOSE [id number] 17:02:00 Test Item Value Reference Range Interpretation Comments POC-GLUCOSE METER 139 mg/dL 70-110 H : TESTED A T [facility] 6720 (BEAKER) (test code [facility], = 1538) 22608: Audio Visual Equipment Rental Clerk/Techni juan antonio ID = [id number] for TSEG GAI, TSIGHEREDA POCT-GLUCOSE [id number] 13:03:00 Test Item Value Reference Range Interpretation Comments POC-GLUCOSE METER 129 mg/dL 70-110 H : TESTED A T [facility] 6720 (BEAKER) (test code [facility], = 1538) 37342: Audio Visual Equipment Rental Clerk/Techni juan antonio ID = [id number] for TSEG GAI, TSIGHEREDA HEMOGLOBIN AND [id number] 09:35:00 Test Item Value Reference Range Interpretation Comments HEMOGLOBIN (BEAKER) (test code = 8.9 GM/DL 11.2-15.7 L 410) HEMATOCRIT (BEAKER) (test code = 29.1 % 34.1-44.9 L 411) Audio Visual Equipment Rental Clerk ID - [id number]-GLUCOSE [id number] 08:43:00 Test Item Value Reference Range Interpretation Comments POC-GLUCOSE METER 96 mg/dL 70-110 : TESTED A T [facility] 6720 (BEAKER) (test code [facility], = 1538) 61623: Audio Visual Equipment Rental Clerk/Techni juan antonio ID = [id number] for KUMAR COBOS CBC W/PLT COUNT & AUTO [id number] 07:28:00 Test Item Value Reference Range Interpretation [...] (BEAKER) (test code = 2801) COMPREHENSIVE METABOLIC [id number] 07:12:00 Test Item Value Reference Range Interpretation [...] S NOT APPLICABLE FOR DIALYSIS PATIEN TS. Audio Visual Equipment Rental Clerk ID - MURALI LSpecimen slightly [id number] 07:09:00 Test Item Value Reference Range Interpretation Comments MAGNESIUM (BEAKER) (test code = 1.7 mg/dL 1.6-2.6 627) Audio Visual Equipment Rental Clerk ID - MURALI [id number] 07:09:00 Test Item Value Reference Range Interpretation Comments PHOSPHORUS (BEAKER) (test code = 2.5 mg/dL 2.3-4.7 604) Audio Visual Equipment Rental Clerk ID - MURALI LPROTHROMBIN TIME/[id number] 06:59:00 Test Item Value Reference Range Interpretation Comments PROTIME (BEAKER) 19.8 seconds 11.9-14.2 H (test code = 759) INR (BEAKER) (test 1.73 See_Comment [Automat ed message] code = 370) The system [employer] generated this result transmitted ref erence range: <=5.90. The reference range was not used to int erpret this result as normal/abnormal . Effective 03/14/2019: PT Reference Range ChangeNew: 11.9-14.2 Previous: 11.7- 14.7RECOMMENDED COUMADIN/WARFARIN INR THERAPY RANGESSTANDARD DOSE: 2.0-3.0 Includes: PROPHYLAXIS for venous thrombosis, systemic embolization; TREATMENT for venous thrombosis and/or pulmonary embolus.HIGH RISK: Target INR is2.5-3.5 for patients wiht mechanical heart valves.[id number] 06:59:00 Test Item Value Reference Range Interpretation Comments PARTIAL THROMBOPLASTIN TIME 47.3 seconds 22.5-36.0 H (BEAKER) (test code = 760) CALCIUM, [id number] 06:46:00 Test Item Value Reference Range Interpretation Comments CALCIUM IONIZED (BEAKER) (test 1.09 mmol/L 1.12-1.27 L code = 698) PH, BLOOD (BEAKER) (test code = 7.40 1810) POCT-GLUCOSE [id number] 05:56:00 Test Item Value Reference Range Interpretation Comments POC-GLUCOSE METER 93 mg/dL 70-110 : TESTED A T [facility] 6720 (AIRTAME) (test code = EDI PAINTER, 1538) 93679: Audio Visual Equipment Rental Clerk/Techni juan antonio ID = [id number] for YONI PUGH POCT-GLUCOSE [id number] 17:37:00 Test Item Value Reference Range Interpretation Comments POC-GLUCOSE METER 143 mg/dL 70-110 H : TESTED A T [facility] 6720 (MixamoAKER) (test code = EDI Hines JET[place], 1538) 85836: Audio Visual Equipment Rental Clerk/Techni juan antonio ID = [id number] for Katelynn Dempsey HEMOGLOBIN AND [id number] 16:53:00 Test Item Value Reference Range Interpretation Comments HEMOGLOBIN (BEAKER) (test code = 6.4 GM/DL 11.2-15.7 L 410) HEMATOCRIT (BEAKER) (test code = 21.4 % 34.1-44.9 L 411) Audio Visual Equipment Rental Clerk ID - [id number] W/PLT COUNT & AUTO [id number] 13:07:00 Test Item Value Reference Range Interpretation [...] CONCENTRATION Decreased (CELLAVISION)(BEAKER) (test code = 3438) Audio Visual Equipment Rental Clerk ID - Maday Lazar comments: Slide comments:POCT-GLUCOSE METER 2020-12-11 12:23:00 Test Item Value Reference Range Interpretation Comments POC-GLUCOSE METER 159 mg/dL 70-110 H : TESTED Bere[place] T [facility] 6720 (BEAKER) (test code = EDI PAINTER, 1538) 31725: Audio Visual Equipment Rental Clerk/Techni juan antonio ID = [id number] for Katelynn Dempsey [id number] 07:14:00 Test Item Value Reference Range Interpretation Comments MAGNESIUM (BEAKER) (test code = 2.0 mg/dL 1.6-2.6 627) Audio Visual Equipment Rental Clerk ID - MURALI [id number] 07:14:00 Test Item Value Reference Range Interpretation Comments PHOSPHORUS (BEAKER) (test code = 2.7 mg/dL 2.3-4.7 604) Audio Visual Equipment Rental Clerk ID - KIMBERLYDENY LCOMPREHENSIVE METABOLIC [id number] 07:14:00 Test Item Value Reference Range Interpretation [...] S NOT APPLICABLE FOR DIALYSIS PATIEN TS. Audio Visual Equipment Rental Clerk ID - MURALI LSpecimen slightly ictericB-TYPE NATRIURETIC FACTOR (BNP) 2020-12-11 07:11:00 Test Item Value Reference Range Interpretation Comments B-TYPE NATRIURETIC PEPTIDE (BEAKER) 192 pg/mL 0-100 H (test code = 700) Audio Visual Equipment Rental Clerk ID - MURALI LCALCIUM, [id number] 06:57:00 Test Item Value Reference Range Interpretation Comments CALCIUM IONIZED (BEAKER) (test 1.08 mmol/L 1.12-1.27 L code = 698) PH, BLOOD (BEAKER) (test code = 7.42 1810) PROTHROMBIN TIME/[id number] 06:53:00 Test Item Value Reference Range Interpretation Comments PROTIME (BEAKER) 19.7 seconds 11.9-14.2 H (test code = 759) INR (BEAKER) (test 1.72 See_Comment [Automat ed message] code = 370) The system [employer] generated this result transmitted ref erence range: <=5.90. The reference range was not used to int erpret this result as normal/abnormal . Effective 03/14/2019: PT Reference Range ChangeNew: 11.9-14.2 Previous: 11.7- 14.7RECOMMENDED COUMADIN/WARFARIN INR THERAPY RANGESSTANDARD DOSE: 2.0-3.0 Includes: PROPHYLAXIS for venous thrombosis, systemic embolization; TREATMENT for venous thrombosis and/or pulmonary embolus.HIGH RISK: Target INR is2.5-3.5 for patients wiht mechanical heart valves.[id number] 06:53:00 Test Item Value Reference Range Interpretation Comments PARTIAL THROMBOPLASTIN TIME 43.2 seconds 22.5-36.0 H (BEAKER) (test code = 760) POCT-GLUCOSE [id number] 06:26:00 Test Item Value Reference Range Interpretation Comments POC-GLUCOSE METER 105 mg/dL 70-110 : TESTED A T [facility] 6720 (BEAKER) (test code = [place], 1538) 17661: Audio Visual Equipment Rental Clerk/Techni juan antonio ID = [id number] for RAUL RAF, ALVINA RAD, CHEST, 1 VIEW, NON [id number] 03:58:00DR JALALReferring: Dr. Eric Morel for exam:->edemaShould this be performed at the bedside?->Yes [facility] : 1950 Sex: FFINAL [...] JALALReferring: Dr. Eric Morel for exam:->Vaginal bleeding [facility] : 1950 Sex: FFINAL [...] includes endometrial carcinoma, endometrial polyp or hyperplasia. INCOME TAX EXPERT evaluation is recommended.Nonvisualization of the right ovary.Moderate pelvic free fluid. Signed: Amy Villavicencio MDRepellett memorial hospital Verified Date/Time: 12/11/2020 03:56:10 U/S, ABDOMINAL, [id number] 03:13:00DR JAMES Referring: Dr. Eric Neal Labs to be ordered:->Cell Count Labs to be ordered:->Body Fluid Culture (w/Gram Stain, C\\T\\S) Reason for exam:- >ascites r/u SBP [facility] : 1950 Sex: FFINAL REPORT TECHNIQUE: Grayscale ultrasound of the abdomen. IN DICATION: ascites r/u SBP. COMPARISON: None. IMPRESSION: No ascites on sonographic survey of all four quadrants of the abdomen. Signed: [place] Gal[place] MDReport Verified Date/Time: 12/11/2020 03:13:18 POCT-GLUCOSE [id number] 00:14:00 Test Item Value Reference Range Interpretation Comments POC-GLUCOSE METER 125 mg/dL 70-110 H : TESTED A T [facility] 6720 (HANNAAKER) (test code = EDI Hines [facility], 1538) 30087: Audio Visual Equipment Rental Clerk/Techni juan antonio ID = [id number] for ALVINA HUANG SARS-COV2/RT-PCR ([facility])2020-12-10 22:11:00 Test Item Value Reference Range Interpretation Comments SARS-COV2/RT-PCR (test Negative Not Detected, Negative, code = 4196563) See external report for linked test SARS-COV-2 PERFORMING LAB [facility] DENITA (test code = 1715336) Negative result for this test determines that [...] 564(g) of the Act.Fact Sheet for Healthcare Providers:https://www.[employer]/sites/default/files/product/documents/Fact_Shee q_FO_Uxbiwjgxa_Srsq_QMRG-WtW-4.pdfFact Sheet for Healthcare Patients:https://www.[employer]/sites/default/files/product/ documents/Whlo_Wuhkl_Aanicnvm_Njcg_VDRE-AhJ-9.pdfPerforming Laboratory:[place] [address] [address] [place], [place] [address]YKHUMTSKPT AND [id number] 20:58:00 Test Item Value Reference Range Interpretation Comments HEMOGLOBIN (BEAKER) (test code = 7.5 GM/DL 11.2-15.7 L 410) HEMATOCRIT (BEAKER) (test code = 24.4 % 34.1-44.9 L 411) Audio Visual Equipment Rental Clerk ID - [id number], CHEST, 1 VIEW, NON [id number] 13:15:00DR JALALReferring: Dr. Eric Morel for exam:->encephalopathy r/o infectionShould this be performed at the bedside?->Yes [facility] : 1950 Sex: FFINAL REPORT INDICATION: encephalopathy r/o infection COMPARISON: None TECHNIQUE: Single frontal view of the chest. FINDINGS: Lungs and pleura: Mild basilar interstitial thickening and small bilateral effusions. Superimposed infection may be excluded clinically. No effusion.Heart and mediastinum: Normal heart size. Unremarkable mediastinal contours.Osseous structures: No acute abnormality.Other: None. Signed: Afshan Chaudhry Verified Date/Time: 12/10/2020 13:15:33 Reading Location: [facility] Radiology Reading Room -GLUCOSE [id number] 12:25:00 Test Item Value Reference Range Interpretation Comments POC-GLUCOSE METER 128 mg/dL 70-110 H : [facility] ([facility]ER[facility] (test code = [place], 1538) 99640: Audio Visual Equipment Rental Clerk/Techni juan antonio ID = [id number] for SIRIA TANG [id number] 12:11:00 Test Item Value Reference Range Interpretation Comments AMMONIA (BEAKER) (test code = 348) 72 mol/L 18-72 Audio Visual Equipment Rental Clerk ID - MURALI LBASIC METABOLIC [id number] 07:18:00 Test Item Value Reference Range Interpretation [...] S NOT APPLICABLE FOR DIALYSIS PATIEN TS. Audio Visual Equipment Rental Clerk ID - MURALI LSpecimen slightly ictericHEPATIC FUNCTION [id number] 07:18:00 Test Item Value Reference Range Interpretation [...] (test code = 48 U/L 6-55 347) Audio Visual Equipment Rental Clerk ID - MURALI LSpecimealex slightly ictericCBC W/PLT COUNT & AUTO [id number] 07:06:00 Test Item Value Reference Range Interpretation [...] PERCENT (BEAKER) (test code = 2801) PROTHROMBIN TIME/[id number] 07:00:00 Test Item Value Reference Range Interpretation Comments PROTIME (BEAKER) 18.1 seconds 11.9-14.2 H (test code = 759) INR (BEAKER) (test 1.55 See_Comment [Automat ed message] code = 370) The system [employer] generated this result transmitted ref erence range: [...] = 514) SOURCE(BEAKER) (test code = 2795) Audio Visual Equipment Rental Clerk ID - [auto]Audio Visual Equipment Rental Clerk ID - techCOMPREHENSIVE METABOLIC [id number] 07:02:00 Test Item Value Reference Range Interpretation [...] S NOT APPLICABLE FOR DIALYSIS PATIEN TS. Audio Visual Equipment Rental Clerk ID - ADMINSpecimen slightly [id number] 07:00:00 Test Item Value Reference Range Interpretation Comments MAGNESIUM (BEAKER) (test code = 2.3 mg/dL 1.6-2.6 627) Audio Visual Equipment Rental Clerk ID - [id number] 07:00:00 Test Item Value Reference Range Interpretation Comments PHOSPHORUS (BEAKER) (test code = 2.8 mg/dL 2.3-4.7 604) Audio Visual Equipment Rental Clerk ID - ADMINHEPATIC FUNCTION [id number] 07:00:00 Test Item Value Reference Range Interpretation [...] code = 56 U/L 6-55 H 347) Audio Visual Equipment Rental Clerk ID - ADMINSpecimen slightly ictericCREATINE KINASE (CK)2020-12-08 07:00:00 Test Item Value Reference Range Interpretation Comments CREATINE KINASE TOTAL (BEAKER) (test 35 U/L 29-200 code = 380) Audio Visual Equipment Rental Clerk ID - ADMINCBC W/PLT COUNT & AUTO [id number] 06:58:00 Test Item Value Reference Range Interpretation [...] PERCENT (BEAKER) (test code = 2801) CALCIUM, [id number] 06:49:00 Test Item Value Reference Range Interpretation Comments CALCIUM IONIZED (BEAKER) (test 1.09 mmol/L 1.12-1.27 L code = 698) PH, BLOOD (BEAKER) (test code = 7.36 1810) PROTHROMBIN TIME/[id number] 06:48:00 Test Item Value Reference Range Interpretation Comments PROTIME (BEAKER) 19.0 seconds 11.9-14.2 H (test code = 759) INR (BEAKER) (test 1.66 See_Comment [Automat ed message] code = 370) The system [employer] generated this result transmitted ref erence range: <=5.90. The reference range was not used to int erpret this result as normal/abnormal . Effective 03/14/2019: PT Reference Range ChangeNew: 11.9-14.2 Previous: 11.7- 14.7RECOMMENDED COUMADIN/WARFARIN INR THERAPY RANGESSTANDARD DOSE: 2.0-3.0 Includes: PROPHYLAXIS for venous thrombosis, systemic embolization; TREATMENT for venous thrombosis and/or pulmonary embolus.HIGH RISK: Target INR is2.5-3.5 for patients wiht mechanical heart valves.U/S, RENAL, [id number] 05:26:00DR GOLDYeferring: Dr. Eric Morel for exam:->jose manuel [facility] : 1950 Sex: FFINAL [...] MDReport Verified Date/Time: 12/08/2020 05:26:28 CREATININE, RANDOM [id number] 21:05:00 Test Item Value Reference Range Interpretation Comments CREATININE URINE (BEAKER) (test 130.0 mg/dL code = 375) Reference Range: No NormalsOperator ID - BSPROTEIN, RANDOM [id number] 21:05:00 Test Item Value Reference Range Interpretation Comments PROTEIN, URINE (BEAKER) (test code = 32 mg/dL 0-14 H 1569) Audio Visual Equipment Rental Clerk ID - BSSODIUM, RANDOM [id number] 21:05:00 Test Item Value Reference Range Interpretation Comments SODIUM URINE (BEAKER) (test code = 26 meq/L 243) Reference Range: No NormalsOperator ID - BSURINALYSIS W/ [id number] 20:44:00 Test Item Value Reference Range Interpretation [...] = 516) SOURCE(BEAKER) (test code = 2795) Audio Visual Equipment Rental Clerk ID - [auto]Audio Visual Equipment Rental Clerk ID - techCOMPREHENSIVE METABOLIC [id number] 05:50:00 Test Item Value Reference Range Interpretation [...] S NOT APPLICABLE FOR DIALYSIS PATIEN TS. Audio Visual Equipment Rental Clerk ID - EDASISpecimen slightly [id number] 05:49:00 Test Item Value Reference Range Interpretation Comments MAGNESIUM (BEAKER) (test code = 2.4 mg/dL 1.6-2.6 627) Audio Visual Equipment Rental Clerk ID - [id number] 05:49:00 Test Item Value Reference Range Interpretation Comments PHOSPHORUS (BEAKER) (test code = 3.3 mg/dL 2.3-4.7 604) Audio Visual Equipment Rental Clerk ID - EDASIHEPATIC FUNCTION [id number] 05:49:00 Test Item Value Reference Range Interpretation [...] code = 69 U/L 6-55 H 347) Audio Visual Equipment Rental Clerk ID - EDASISpecimen slightly ictericPROTHROMBIN TIME/[id number] 05:41:00 Test Item Value Reference Range Interpretation Comments PROTIME (BEAKER) 18.3 seconds 11.9-14.2 H (test code = 759) INR (BEAKER) (test 1.58 See_Comment [Automat ed message] code = 370) The system [employer] generated this result transmitted ref erence range: <=5.90. The reference range was not used to int erpret this result as normal/abnormal . Effective 03/14/2019: PT Reference Range ChangeNew: 11.9-14.2 Previous: 11.7- 14.7RECOMMENDED COUMADIN/WARFARIN INR THERAPY RANGESSTANDARD DOSE: 2.0-3.0 Includes: PROPHYLAXIS for venous thrombosis, systemic embolization; TREATMENT for venous thrombosis and/or pulmonary embolus.HIGH RISK: Target INR is2.5-3.5 for patients wiht mechanical heart valves.CALCIUM, [id number] 05:28:00 Test Item Value Reference Range Interpretation Comments CALCIUM IONIZED (BEAKER) (test 1.10 mmol/L 1.12-1.27 L code = 698) PH, BLOOD (BEAKER) (test code = 7.34 1810) CBC W/PLT COUNT & AUTO [id number] 05:27:00 Test Item Value Reference Range Interpretation [...] (BEAKER) (test code = 2801) COMPREHENSIVE METABOLIC [id number] 06:09:00 Test Item Value Reference Range Interpretation [...] S NOT APPLICABLE FOR DIALYSIS PATIEN TS. Audio Visual Equipment Rental Clerk ID - ALIZA MSpecimen slightly ictericCBC W/PLT COUNT & AUTO [id number] 05:56:00 Test Item Value Reference Range Interpretation [...] GRANULOCYTES-RELATIVE PERCENT (BEAKER) (test code = 2801) [id number] 05:53:00 Test Item Value Reference Range Interpretation Comments MAGNESIUM (BEAKER) (test code = 2.2 mg/dL 1.6-2.6 627) Audio Visual Equipment Rental Clerk ID - ALIZA MHEPATIC FUNCTION [id number] 05:53:00 Test Item Value Reference Range Interpretation [...] code = 84 U/L 6-55 H 347) Audio Visual Equipment Rental Clerk ID - ALIZA MSpecimen slightly [id number] 06:10:00 Test Item Value Reference Range Interpretation Comments MAGNESIUM (BEAKER) (test code = 2.0 mg/dL 1.6-2.6 627) Audio Visual Equipment Rental Clerk ID - [id number] 06:10:00 Test Item Value Reference Range Interpretation Comments PHOSPHORUS (BEAKER) (test code = 2.5 mg/dL 2.3-4.7 604) Audio Visual Equipment Rental Clerk ID - EDASICOMPREHENSIVE METABOLIC [id number] 06:10:00 Test Item Value Reference Range Interpretation [...] S NOT APPLICABLE FOR DIALYSIS PATIEN TS. Audio Visual Equipment Rental Clerk ID - EDASISpecimen moderately ictericHEPATIC FUNCTION [id number] 06:10:00 Test Item Value Reference Range Interpretation [...] code = 95 U/L 6-55 H 347) Audio Visual Equipment Rental Clerk ID - EDASISpecimen moderately ictericB-TYPE NATRIURETIC FACTOR (BNP) 2020-12-05 05:49:00 Test Item Value Reference Range Interpretation Comments B-TYPE NATRIURETIC PEPTIDE (BEAKER) 231 pg/mL 0-100 H (test code = 700) Audio Visual Equipment Rental Clerk ID - EDASIPROTHROMBIN TIME/[id number] 05:27:00 Test Item Value Reference Range Interpretation Comments PROTIME (BEAKER) 20.0 seconds 11.9-14.2 H (test code = 759) INR (BEAKER) (test 1.77 See_Comment [Automat ed message] code = 370) The system [employer] generated this result transmitted ref erence range: [...] mechanical heart valves.CBC W/PLT COUNT & AUTO [id number] 05:19:00 Test Item Value Reference Range Interpretation [...] PERCENT (BEAKER) (test code = 2801) CALCIUM, [id number] 05:19:00 Test Item Value Reference Range Interpretation Comments CALCIUM IONIZED (BEAKER) (test 1.11 mmol/L 1.12-1.27 L code = 698) PH, BLOOD (BEAKER) (test code = 7.41 1810) BILIRUBIN, [id number] 10:34:00 Test Item Value Reference Range Interpretation Comments BILIRUBIN DIRECT (HAO) (test 2.3 mg/dL 0.1-0.5 H code = 706) Audio Visual Equipment Rental Clerk ID - AAHAMIDSARS-COV2/RT-PCR ([facility])2020-12-04 07:25:00 Test Item Value Reference Range Interpretation Comments SARS-COV2/RT-PCR (test Negative Not Detected, Negative, code = 3026636) See external report for linked test SARS-COV-2 PERFORMING LAB [facility] (test code = 8622802) Negative result for this test determines that [...] 564(g) of the Act.Fact Sheet for Healthcare Providers:https://www.[employer]/sites/default/files/product/documents/Fact_Shee c_FM_Lcqmhjdnf_Xbpm_PRPI-YkK-8.pdfFact Sheet for Healthcare Patients:https://www.[place].[employer]/sites/default/files/product/ documents/Ebts_Ikobj_Uhyefgpo_Dwbq_KYBK-IsA-0.pdfPerforming Laboratory:[facility], [place] [address]Y-[place] NATRIURETIC FACTOR (BNP)2020-12-04 05:48:00 Test Item Value Reference Range Interpretation Comments B-TYPE NATRIURETIC PEPTIDE (BEAKER) 365 pg/mL 0-100 H (test code = 700) Audio Visual Equipment Rental Clerk ID - ALIZA [id number] 05:42:00 Test Item Value Reference Range Interpretation Comments MAGNESIUM (BEAKER) (test code = 2.1 mg/dL 1.6-2.6 627) Audio Visual Equipment Rental Clerk ID - ALIZA [id number] 05:42:00 Test Item Value Reference Range Interpretation Comments PHOSPHORUS (BEAKER) (test code = 2.2 mg/dL 2.3-4.7 L 604) Audio Visual Equipment Rental Clerk ID - ALIZA MCOMPREHENSIVE METABOLIC [id number] 05:42:00 Test Item Value Reference Range Interpretation [...] S NOT APPLICABLE FOR DIALYSIS PATIEN TS. Audio Visual Equipment Rental Clerk ID - ALIZA MSpecimen moderately ictericCALCIUM, [id number] 05:18:00 Test Item Value Reference Range Interpretation Comments CALCIUM IONIZED (BEAKER) (test 1.11 mmol/L 1.12-1.27 L code = 698) PH, BLOOD (BEAKER) (test code = 7.38 1810) CBC W/PLT COUNT & AUTO [id number] 05:13:00 Test Item Value Reference Range Interpretation [...] PERCENT (BEAKER) (test code = 2801) BLOOD [id number] 00:00:00 Test Item Value Reference Range Interpretation Comments CULTURE (BEAKER) (test No growth in 5 days code = 1095) BLOOD [id number] 00:00:00 Test Item Value Reference Range Interpretation Comments CULTURE (BEAKER) (test No growth in 5 days code = 1095) RAD, CHEST, 1 VIEW, NON [id number] 22:22:00DR Wellserring: Dr. Eric Morel for exam:->edemaShould this be performed at the bedside?->Yes [facility] : 1950 Sex: FFINAL [...] Michael Tabares MDReport Verified Date/Time: 12/03/2020 22:22:17 NDALE [facility] AND HOSPITALOMPREHENSIVE METABOLIC [id number] 06:26:00 Test Item Value Reference Range Interpretation [...] S NOT APPLICABLE FOR DIALYSIS PATIEN TS. Audio Visual Equipment Rental Clerk ID - ALIZA MSpecimen moderately [id number] 06:20:00 Test Item Value Reference Range Interpretation Comments MAGNESIUM (BEAKER) (test code = 2.3 mg/dL 1.6-2.6 627) Audio Visual Equipment Rental Clerk ID - ALIZA MCBC W/PLT COUNT & AUTO [id number] 06:08:00 Test Item Value Reference Range Interpretation [...] (BEAKER) (test code = 2801) COMPREHENSIVE METABOLIC [id number] 06:20:00 Test Item Value Reference Range Interpretation [...] S NOT APPLICABLE FOR DIALYSIS PATIEN TS. Audio Visual Equipment Rental Clerk ID - ALIZA MSpecimen slightly ictericCALCIUM, [id number] 05:40:00 Test Item Value Reference Range Interpretation Comments CALCIUM IONIZED (BEAKER) (test 1.14 mmol/L 1.12-1.27 code = 698) PH, BLOOD (BEAKER) (test code = 7.26 1810) [id number] 05:36:00 Test Item Value Reference Range Interpretation Comments MAGNESIUM (BEAKER) (test code = 2.5 mg/dL 1.6-2.6 627) Audio Visual Equipment Rental Clerk ID - ALIZA [id number] 05:36:00 Test Item Value Reference Range Interpretation Comments PHOSPHORUS (BEAKER) (test code = 2.2 mg/dL 2.3-4.7 L 604) Audio Visual Equipment Rental Clerk ID - ALIZA MBILIRUBIN, [id number] 05:36:00 Test Item Value Reference Range Interpretation Comments BILIRUBIN DIRECT (BEAKER) (test 1.8 mg/dL 0.1-0.5 H code = 706) Audio Visual Equipment Rental Clerk ID Shakir ABRAMS MCREATINE KINASE (CK)2020-12-02 05:36:00 Test Item Value Reference Range Interpretation Comments CREATINE KINASE TOTAL (BEAKER) (test 385 U/L 29-200 H code = 380) Audio Visual Equipment Rental Clerk ID Shakir ABRAMS MCBC W/PLT COUNT & AUTO [id number] 05:07:00 Test Item Value Reference Range Interpretation [...] (BEAKER) (test code = 2801) U/S, ABDOMINAL, [id number] 13:39:00DR JAMES Referring: Dr. Eric Neal Labs to be ordered:->Body Fluid Culture (w/Gram Stain, C\\T\\S) Labs to be ordered:- >Cell Count Reason for exam:->diagnostic. limit 2 L for therapeutic. [facility] 1950 Sex: FFINAL REPORT U/S, ABDOMINAL, LIMITED CLINICAL HISTORY: diagnostic. Limit 2 L for therapeutic. COMPARISON: Abdominal MRI 12/06/2020 TECHNIQUE: Real time transverse and longitudinal images of the abdominal quadrants were obtained. FINDINGS / IMPRESSION: Small volumeascites, mostly perihepatic, insufficient for paracentesis, no paracentesis performed. Signed: Kell Langston Verified Date/Time: 12/01/2020 13:39:28 Reading Location: [address] Body Reading Room CREATINE KINASE (CK)2020-12-01 11:58:00 Test Item Value Reference Range Interpretation Comments CREATINE KINASE TOTAL (BEAKER) (test 610 U/L 29-200 H code = 380) Audio Visual Equipment Rental Clerk ID - ALIZA OMPREHENSIVE METABOLIC [id number] 05:36:00 Test Item Value Reference Range Interpretation [...] S NOT APPLICABLE FOR DIALYSIS PATIEN TS. Audio Visual Equipment Rental Clerk ID - ALIZA MSpecimen slightly [id number] 05:33:00 Test Item Value Reference Range Interpretation Comments MAGNESIUM (BEAKER) (test code = 2.6 mg/dL 1.6-2.6 627) Audio Visual Equipment Rental Clerk ID - ALIZA MPROTHROMBIN TIME/[id number] 05:32:00 Test Item Value Reference Range Interpretation Comments PROTIME (BEAKER) 19.5 seconds 11.9-14.2 H (test code = 759) INR (BEAKER) (test 1.70 See_Comment [Automat ed message] code = 370) The system [employer] generated this result transmitted ref erence range: [...] mechanical heart valves.CBC W/PLT COUNT & AUTO [id number] 05:11:00 Test Item Value Reference Range Interpretation [...] (BEAKER) (test code = 2801) COMPREHENSIVE METABOLIC [id number] 07:42:00 Test Item Value Reference Range Interpretation [...] S NOT APPLICABLE FOR DIALYSIS PATIEN TS. Audio Visual Equipment Rental Clerk ID - MURALI LSpecimen slightly [id number] 07:16:00 Test Item Value Reference Range Interpretation Comments MAGNESIUM (BEAKER) 2.7 mg/dL 1.6-2.6 H Specimen slightly (test code = 627) hemolyzed Audio Visual Equipment Rental Clerk WENDY - MURALI LCBC W/PLT COUNT & AUTO [id number] 06:42:00 Test Item Value Reference Range Interpretation [...] PERCENT (BEAKER) (test code = 2801) PROTHROMBIN TIME/[id number] 06:15:00 Test Item Value Reference Range Interpretation Comments PROTIME (BEAKER) 20.0 seconds 11.9-14.2 H (test code = 759) INR (BEAKER) (test 1.75 See_Comment [Automat ed message] code = 370) The system [employer] generated this result transmitted ref erence range: [...] wiht mechanical heart valves.RAD, ABDOMEN/KUB, 1 VIEW [id number] 03:41:00DR JALALReferring: Dr. Eric Morel for exam:->constipationShould this be performed at the bedside?->Yes [facility] : 1950 Sex: FFINAL REPORT RAD, ABDOMEN/KUB, 1 VIEW AP CLINICAL HISTORY: cons tipation TECHNIQUE: RAD, ABDOMEN/KUB, 1 VIEW AP COMPARISON: None IMPRESSION: The bowel gas pattern is nonspecific/nonobstructive. Larbd-id-gznxvuvj volume fecal burden visualized. Supine imaging insensitive for exclusion of free air. Bilateral pulmonary airspace disease present. Signed: Michael Tabares MDReport Verified Date/Time: 11/30/2020 03:41:22 BASIC METABOLIC [id number] 01:17:00 Test Item Value Reference Range Interpretation [...] S NOT APPLICABLE FOR DIALYSIS PATIEN TS. Audio Visual Equipment Rental Clerk ID - PIAYA LSpecimen slightly ictericCBC (HEMOGRAM [...] WBC 0-0 (test code = 413) POCT-GLUCOSE [id number] 20:49:00 Test Item Value Reference Range Interpretation Comments POC-GLUCOSE METER 130 mg/dL 70-110 H : TESTED A T BSC 6720 (BEAKER) (test code = EDI JETT IA, 1538) [address]: Audio Visual Equipment Rental Clerk/Techni juan antonio ID = [id number] for SHERRY GHOSH RA COMPREHENSIVE METABOLIC [id number] 06:22:00 Test Item Value Reference Range Interpretation [...] S NOT APPLICABLE FOR DIALYSIS PATIEN TS. Audio Visual Equipment Rental Clerk ID - ALIZA MSpecimen slightly [id number] 06:17:00 Test Item Value Reference Range Interpretation Comments MAGNESIUM (BEAKER) (test code = 2.7 mg/dL 1.6-2.6 H 627) Audio Visual Equipment Rental Clerk ID - ALIZA MPROTHROMBIN TIME/[id number] 06:05:00 Test Item Value Reference Range Interpretation Comments PROTIME (BEAKER) 21.5 seconds 11.9-14.2 H (test code = 759) INR (BEAKER) (test 1.92 See_Comment [Automat ed message] code = 370) The system [employer] generated this result transmitted ref erence range: [...] mechanical heart valves.CBC W/PLT COUNT & AUTO [id number] 05:34:00 Test Item Value Reference Range Interpretation [...] PERCENT (BEAKER) (test code = 2801) CALCIUM, [id number] 06:38:00 Test Item Value Reference Range Interpretation Comments CALCIUM IONIZED (BEAKER) (test 1.01 mmol/L 1.12-1.27 L code = 698) PH, BLOOD (BEAKER) (test code = 7.38 1810) B-TYPE NATRIURETIC FACTOR (BNP)2020-11-28 05:27:00 Test Item Value Reference Range Interpretation Comments B-TYPE NATRIURETIC PEPTIDE (BEAKER) 465 pg/mL 0-100 H (test code = 700) Audio Visual Equipment Rental Clerk ID - EDASICOMPREHENSIVE METABOLIC [id number] 05:25:00 Test Item Value Reference Range Interpretation [...] S NOT APPLICABLE FOR DIALYSIS PATIEN TS. Audio Visual Equipment Rental Clerk ID - EDASISpecimen slightly [id number] 05:22:00 Test Item Value Reference Range Interpretation Comments MAGNESIUM (BEAKER) (test code = 2.5 mg/dL 1.6-2.6 627) Audio Visual Equipment Rental Clerk ID - [id number] 05:22:00 Test Item Value Reference Range Interpretation Comments PHOSPHORUS (BEAKER) (test code = 2.6 mg/dL 2.3-4.7 604) Audio Visual Equipment Rental Clerk ID - EDASICREATINE KINASE (CK)2020-11-28 05:22:00 Test Item Value Reference Range Interpretation Comments CREATINE KINASE TOTAL (BEAKER) (test 3438 U/L 29-200 H code = 380) Audio Visual Equipment Rental Clerk ID - EDASICALCIUM, [id number] 05:07:00 Test Item Value Reference Range Interpretation Comments CALCIUM IONIZED (BEAKER) (test 1.04 mmol/L 1.12-1.27 L code = 698) PH, BLOOD (BEAKER) (test code = 7.39 1810) PROTHROMBIN [id number] 05:06:00 Test Item Value Reference Range Interpretation Comments PROTIME (BEAKER) 20.3 seconds 11.9-14.2 H (test code = 759) INR (BEAKER) (test 1.79 See_Comment [Automat ed message] code = 370) The system [employer] generated this result transmitted ref erence range: [...] mechanical heart valves.CBC W/PLT COUNT & AUTO [id number] 05:00:00 Test Item Value Reference Range Interpretation [...] (BEAKER) (test code = 2801) URINALYSIS W/ [id number] 21:23:00 Test Item Value Reference Range Interpretation [...] 1585) Occasional SOURCE(BEAKER) (test code = 2795) Audio Visual Equipment Rental Clerk ID - [auto]Audio Visual Equipment Rental Clerk ID - techSODIUM, RANDOM [id number] 21:16:00 Test Item Value Reference Range Interpretation Comments SODIUM URINE (BEAKER) (test code = < meq/L 243) Reference Range: No NormalsOperator ID - BSCREATININE, RANDOM [id number] 21:13:00 Test Item Value Reference Range Interpretation Comments CREATININE URINE (BEAKER) (test 115.0 mg/dL code = 375) Reference Range: No NormalsOperator ID - BSPROTEIN, RANDOM [id number] 21:13:00 Test Item Value Reference Range Interpretation Comments PROTEIN, URINE (BEAKER) (test code = 74 mg/dL 0-14 H 1569) Audio Visual Equipment Rental Clerk ID - BSUREA NITROGEN, RANDOM [id number] 21:13:00 Test Item Value Reference Range Interpretation [...] = 413) PERIPHERAL BLOOD SMEAR - PATHOLOGIST [id number] 13:22:00 Test Item Value Reference Range Interpretation Comments PERIPHERAL SMR REVIEW No circulating blasts. (BEAKER) (test code = No significantly 2640) increased schistocytes. [id number] Constantine Linn, (BEAKER) (test code = M.D.(electronic 5150) signature) CREATINE KINASE (CK)2020-11-27 06:15:00 Test Item Value Reference Range Interpretation Comments CREATINE KINASE TOTAL (BEAKER) (test 4837 U/L 29-200 H code = 380) Audio Visual Equipment Rental Clerk ID - SMOperator ID - SMALPHA FETOPROTEIN (AFP), TUMOR [id number] 06:07:00 Test Item Value Reference Range Interpretation Comments ALPHA-FETOPROTEIN (BEAKER) (test code < ng/mL <10.0 = 1094) Audio Visual Equipment Rental Clerk ID - ALIZA MHEPATITIS B SURFACE [id number] 06:07:00 Test Item Value Reference Range Interpretation Comments HEPATITIS B SURFACE ANTIBODY < mIU/mL <8.0 (BEAKER) (test code = 647) Audio Visual Equipment Rental Clerk ID - ALIZA CONTE [id number] 05:59:00 Test Item Value Reference Range Interpretation [...] failure, acidosis, acute neurological disease, and persistent tachyarrhythmia.Audio Visual Equipment Rental Clerk ID - SMCOMPREHENSIVE METABOLIC [id number] 05:50:00 Test Item Value Reference Range Interpretation [...] S NOT APPLICABLE FOR DIALYSIS PATIEN TS. Audio Visual Equipment Rental Clerk ID - SMPROTHROMBIN TIME/[id number] 05:42:00 Test Item Value Reference Range Interpretation Comments PROTIME (BEAKER) 19.7 seconds 11.9-14.2 H (test code = 759) INR (BEAKER) (test 1.72 See_Comment [Automat ed message] code = 370) The system [employer] generated this result transmitted ref erence range: <=5.90. The reference range was not used to int erpret this result as normal/abnormal . Effective 03/14/2019: PT Reference Range ChangeNew: 11.9-14.2 Previous: 11.7- 14.7RECOMMENDED COUMADIN/WARFARIN INR THERAPY RANGESSTANDARD DOSE: 2.0-3.0 Includes: PROPHYLAXIS for venous thrombosis, systemic embolization; TREATMENT for venous thrombosis and/or pulmonary embolus.HIGH RISK: Target INR is2.5-3.5 for patients wiht mechanical heart valves.[id number] 05:41:00 Test Item Value Reference Range Interpretation Comments MAGNESIUM (BEAKER) (test code = 2.3 mg/dL 1.6-2.6 627) Audio Visual Equipment Rental Clerk ID - [id number] 05:41:00 Test Item Value Reference Range Interpretation Comments PHOSPHORUS (BEAKER) (test code = 3.2 mg/dL 2.3-4.7 604) Audio Visual Equipment Rental Clerk ID - SMB-TYPE NATRIURETIC FACTOR (BNP)2020-11-27 05:33:00 Test Item Value Reference Range Interpretation Comments B-TYPE NATRIURETIC PEPTIDE (BEAKER) 210 pg/mL 0-100 H (test code = 700) Audio Visual Equipment Rental Clerk ID - SMCALCIUM, [id number] 05:27:00 Test Item Value Reference Range Interpretation Comments CALCIUM IONIZED (BEAKER) (test 1.04 mmol/L 1.12-1.27 L code = 698) PH, BLOOD (BEAKER) (test code = 7.33 1810) RETICULOCYTE [id number] 05:09:00 Test Item Value Reference Range Interpretation Comments RETICULOCYTE COUNT PCT (BEAKER) (test 2.3 % 0.5-1.7 H code = 575) Audio Visual Equipment Rental Clerk ID - 6000CBC W/PLT COUNT & AUTO [id number] 05:09:00 Test Item Value Reference Range Interpretation [...] (BEAKER) (test code = 2801) MR, ABDOMEN, [id number] 20:05:00DR JALALReferring: Dr. Eric Champion portal vein clot and hccUnlisted Reason for Exam - Click Yes and Enter Reason Below->NoCOMM[facility]Name[facility] : 1950 Sex: FFINAL [...] MDReport Verified Date/Time: 11/26/2020 20:05:06 Reading Location: [facility] B1 C[address] CT Body Reading Room -COV2/RT-PCR ([facility])2020-11-26 18:12:00 Test Item Value Reference Range Interpretation Comments SARS-COV2/RT-PCR (test Negative Not Detected, Negative, code = 2045431) See external report for linked test SARS-COV-2 PERFORMING LAB [facility] (test code = 3407105) Negative result for this test determines that [...] 564(g) of the Act.Fact Sheet for Healthcare Providers:https://www.[employer]/sites/default/files/product/documents/Fact_Shee j_TZ_Ihcsknryi_Cytg_JPNH-GuV-6.pdfFact Sheet for Healthcare Patients:https://www.[employer]/sites/default/files/product/ documents/Yvcn_Xbwvr_Epweevof_Nksv_QNDW-MyN-2.pdfPerforming Laboratory:[place] [address], [place] [id number] 17:43:00 Test Item Value Reference Range Interpretation Comments HAPTOGLOBIN (BEAKER) (test code = 52 mg/dL 14 366) Audio Visual Equipment Rental Clerk ID - BSVITAMIN B12 AND [id number] 16:08:00 Test Item Value Reference Range Interpretation Comments VITAMIN B12 659 pg/mL 213-816 (BEAKER) (test code = 774) FOLATE (BEAKER) 12.20 ng/mL See_Comment [Automated message] (test code = 362) The system which generated this result transmitted ref erence range: >=7.00. The reference range was not used to interpr et this result as normal/abnormal . Audio Visual Equipment Rental Clerk ID - BSVITAMIN [id number] 15:58:00 Test Item Value Reference Range Interpretation Comments VITAMIN B12 (BEAKER) (test code = 623 pg/mL 213-816 774) Audio Visual Equipment Rental Clerk ID - [id number] 15:58:00 Test Item Value Reference Range Interpretation Comments FERRITIN (BEAKER) (test code = 18.49 ng/mL 5.00-275.00 361) Audio Visual Equipment Rental Clerk ID - BSTSH/FREE T4 IF [id number] 15:58:00 Test Item Value Reference Range Interpretation Comments THYROID STIMULATING HORMONE 1.498 uIU/mL 0.350-4.940 (BEAKER) (test code = 772) Audio Visual Equipment Rental Clerk ID - BSTROPONIN [id number] 15:38:00 Test Item Value Reference Range Interpretation [...] failure, acidosis, acute neurological disease, and persistent tachyarrhythmia.Audio Visual Equipment Rental Clerk ID - BSIRON, TIBC, % SAT. (WITHOUT FERRITIN)2020-11-26 15:31:00 Test Item Value Reference Range Interpretation Comments IRON (BEAKER) (test code = 547) 17.0 ug/dL 40.0-160.0 L TOTAL IRON BINDING CAPACITY 228 ug/dL 250-450 L (BEAKER) (test code = 769) IRON % SATURATION (2) (BEAKER) 7 % 20-55 L (test code = 2590) Audio Visual Equipment Rental Clerk ID - BSLACTATE DEHYDROGENASE (LDH)2020-11-26 15:28:00 Test Item Value Reference Range Interpretation Comments LACTATE DEHYDROGENASE (BEAKER) (test 555 U/L 125-220 H code = 635) Audio Visual Equipment Rental Clerk ID - BSRETICULOCYTE [id number] 14:12:00 Test Item Value Reference Range Interpretation Comments RETICULOCYTE COUNT PCT (BEAKER) (test 2.7 % 0.5-1.7 H code = 575) Audio Visual Equipment Rental Clerk ID - [id number], PELVIS, 1 OR 2 [id number] 10:30:00DR JALAKYMeferring: Dr. Eric Morel for exam:->LEG PAINBLReason for exam:->HIP PAINBLShouldthis be performed at the bedside?->Yes [facility] 1950 Sex: FFINAL REPORT CLINICAL HISTORY: LEG PAINHIP PAIN TECHNIQUE: AP pelvis COMPARISON: None IMPRESSION: The pelvis appears intact without evidence of fracture or dislocation on the single frontal view. Signed: Sangeeta Garces Verified Date/Time: 11/26/2020 10:30:11 Reading Location: [facility] Radiology Reading Room RAD, CHEST, 1 VIEW, NON [id number] 10:30:00DR HILTONLAKYMeferring: Dr. Eric Morel for exam:->peripheral edemaBLReason for exam:->BLShouldthis be performed at the bedside?->Yes [facility] : 1950 Sex: FFINAL REPORT CLINICAL HISTORY: peripheral edema TECHNIQUE: 1 view of the chest. COMPARISON: 09/25/2019 IMPRESSION: Diffuse bilateral interstitial infiltrates are similar versus slightly increased in prominence. Subpulmonic pleural effusions cannot be excluded. The cardiomediastinal silhouette is magnified by technique. Elevation of the right hemidiaphragm is again seen. Signed: Sangeeta Garces MDReport Verified Date/Time: 11/26/2020 10:30:51 Reading Location: [facility] Radiology Reading Room TROPONIN [id number] 10:27:00 Test Item Value Reference Range Interpretation [...] failure, acidosis, acute neurological disease, and persistent tachyarrhythmia.Audio Visual Equipment Rental Clerk ID - EDASIB-TYPE NATRIURETIC FACTOR (BNP)2020-11-26 10:26:00 Test Item Value Reference Range Interpretation Comments B-TYPE NATRIURETIC PEPTIDE (BEAKER) 114 pg/mL 0-100 H (test code = 700) Audio Visual Equipment Rental Clerk ID - EDASICOMPREHENSIVE METABOLIC [id number] 10:23:00 Test Item Value Reference Range Interpretation [...] S NOT APPLICABLE FOR DIALYSIS PATIEN TS. Audio Visual Equipment Rental Clerk ID - EDASICBC W/PLT COUNT & AUTO [id number] 10:09:00 Test Item Value Reference Range Interpretation [...] 0-1 PERCENT (BEAKER) (test code = 2801) [id number] 10:47:00 Test Item Value Reference Range Interpretation Comments RPR SCREEN (BEAKER) (test code = Nonreactive Nonreactive 420) HEMOGLOBIN [id number] 08:19:00 Test Item Value Reference Range Interpretation Comments HEMOGLOBIN A1C (BEAKER) (test code = 4.4 % 4.3-6.1 368) TSH/FREE T4 IF [id number] 07:41:00 Test Item Value Reference Range Interpretation Comments THYROID STIMULATING HORMONE 1.836 uIU/mL 0.350-4.940 (BEAKER) (test code = 772) Audio Visual Equipment Rental Clerk ID - EDASIVITAMIN B12 AND [id number] 07:41:00 Test Item Value Reference Range Interpretation Comments VITAMIN B12 (BEAKER) (test code = 356 pg/mL 213-816 774) FOLATE (BEAKER) (test code = 362) 12.40 ng/mL >=7.00 Audio Visual Equipment Rental Clerk ID - EDASISARS-COV2/RT-PCR ([facility])2020-10-24 07:10:00 Test Item Value Reference Range Interpretation Comments SARS-COV2/RT-PCR (test Negative Not Detected, Negative, code = 1012910) See external report for linked test SARS-COV-2 PERFORMING LAB [facility] (test code = 7470440) Negative result for this test determines that [...] the Cheema SARS-CoV-2 assay.Fact Sheet for Healthcare Providers:https://www.[employer].cheema/derrick/ MB_GRFB-LvA-8_OLJ_Jyam_Kthls_02-305748.pdfFact Sheet for Healthcare Patients:https://www.[employer].ab lauryn/derrick/VW_ZNJF-VeH-2_Qmndgun_Xbmz_Kjvai_UG_98-438880C7.pdfPerforming Laboratory:[facility] [place] [address] BASIC METABOLIC [id number] 06:47:00 Test Item Value Reference Range Interpretation [...] S NOT APPLICABLE FOR DIALYSIS PATIEN TS. Audio Visual Equipment Rental Clerk ID - PIDENY [id number] 06:47:00 Test Item Value Reference Range Interpretation Comments MAGNESIUM (BEAKER) (test code = 2.0 mg/dL 1.6-2.6 627) Audio Visual Equipment Rental Clerk ID - KIMBERLYDENY [id number] 06:47:00 Test Item Value Reference Range Interpretation Comments PHOSPHORUS (BEAKER) (test code = 2.6 mg/dL 2.3-4.7 604) Audio Visual Equipment Rental Clerk ID - KIMBERLYDENY LLIPID [id number] 06:47:00 Test Item Value Reference Range Interpretation [...] Borderline 130-159 High 160-189 Very High >=190 Audio Visual Equipment Rental Clerk ID - PIAYALCBC W/PLT COUNT & AUTO [id number] 06:07:00 Test Item Value Reference Range Interpretation [...] (BEAKER) (test code = 2801) CT, CTANGIO [id number] 00:46:00DR GOLDYeferring: Dr. Eric Brownisted Reason for Exam - Click Yes and Enter Reason Below->No [facility] : 1950 [...] occipital lobe consistent with an evolving acute X RAY CONTROL EQUIPMENT REPAIRER territory infarct. There is no acute intracranial [...] segment of the left posterior cerebral artery ([employer] EQUIPMENT REPAIRER). There is good flow related enhancement of [...] left caudate head lacunar infarct.Evolving acute left X RAY CONTROL EQUIPMENT REPAIRER territory infarct.No acute intracranial hemorrhage or mass effect. CTA head:Occlusion of the P2 segment of the left X RAY CONTROL EQUIPMENT REPAIRER. CTA neck:Mild short segment stenoses of the bilateral proximal cervical ICAs.No vessel occlusion or hemodynamically significant stenosis by NASCET criteria.Pulmonary findings which may represent pulmonary interstitial edema. A chest radiograph the helpful for further evaluation. Signed: Amy Vilalvicencio MDReport Verified Date/Time: 10/24/2020 00:46:37 CT, CAROTID, ANGIO 2020-10-24 00:46:00DR WINSLOWeferring: Dr. Eric Brownisted Reason for Exam - Click Yes and Enter Reason Below->No [facility] : 1950 Sex: FFINAL [...] occipital lobe consistent with an evolving acute X RAY CONTROL EQUIPMENT REPAIRER territory infarct. There is no acute intracranial [...] segment of the left posterior cerebral artery ([employer] EQUIPMENT REPAIRER). There is good flow related enhancement of [...] left caudate head lacunar infarct.Evolving acute left X RAY CONTROL EQUIPMENT REPAIRER territory infarct.No acute intracranial hemorrhage or mass effect. CTA head:Occlusion of the P2 segment of the left X RAY CONTROL EQUIPMENT REPAIRER. CTA neck:Mild short segment stenoses of the [...] 0.67 mg/dL 0.00-0.50 H code = 676) Audio Visual Equipment Rental Clerk ID - DBMR, BRAIN, WITHOUT [id number] 18:51:00DR GOLDYeferring: Dr. Eric Sepulveda Reason for Exam - Click Yes and Enter Reason Below->No [facility] : 1950 Sex: FFINAL [...] of the corpus callosum, consistent with acute X RAY CONTROL EQUIPMENT REPAIRER territory infarct. No acute intracranial hemorrhage. No [...] Calvarium \\T\\ scalp: Unremarkable. 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 Audio Visual Equipment Rental Clerk ID - DBCT, BRAIN/STROKE [id number] 15:34:00DR Priscillaerring: Dr. Eric Morel for exam:->Right visual field deficit [facility] 1950 Sex: FFINAL [...] occipital lobe is suspicious for acute left X RAY CONTROL EQUIPMENT REPAIRER territory infarct.2.No acute intracranial hemorrhage.3.Generalized parenchymalvolume loss and chronic microvascular changes, progressed since 2015. The findings were discussed with Dr. KATRIN DE LEON MD on 10/23/2020 3:34 PM. Signed: Shefali Marcos Verified Date/Time:10/23/2020 15:34:36 PROTHROMBIN TIME/[id number] 15:21:00 Test Item Value Reference Range Interpretation [...] INR is2.5-3.5 for patients wiht mechanical heart valves.PT/[id number] 15:21:00 Test Item Value Reference Range Interpretation [...] mechanical heart valves.CBC W/PLT COUNT & AUTO [id number] 15:12:00 Test Item Value Reference Range Interpretation [...] (BEAKER) (test code = 2801) URINALYSIS W/ [id number] 15:23:00 Test Item Value Reference Range Interpretation [...] code = 1521) SOURCE(BEAKER) (test code = 9285) Audio Visual Equipment Rental Clerk ID - [auto]Audio Visual Equipment Rental Clerk ID - techB-TYPE NATRIURETIC FACTOR (BNP)2020-09-27 11:13:00 Test Item Value Reference Range Interpretation Comments B-TYPE NATRIURETIC PEPTIDE (BEAKER) 156 pg/mL 0-100 H (test code = 700) Audio Visual Equipment Rental Clerk ID - DBCOMPREHENSIVE METABOLIC [id number] 10:52:00 Test Item Value Reference Range Interpretation [...] S NOT APPLICABLE FOR DIALYSIS PATIEN TS. Audio Visual Equipment Rental Clerk ID - [id number] 10:52:00 Test Item Value Reference Range Interpretation Comments MAGNESIUM (BEAKER) (test code = 1.7 mg/dL 1.6-2.6 627) Audio Visual Equipment Rental Clerk ID - [id number] 10:52:00 Test Item Value Reference Range Interpretation Comments PHOSPHORUS (BEAKER) (test code = 2.0 mg/dL 2.3-4.7 L 604) Audio Visual Equipment Rental Clerk ID - [id number] 10:41:00 Test Item Value Reference Range Interpretation Comments AMMONIA (BEAKER) (test code = 348) 36 mol/L 18-72 Audio Visual Equipment Rental Clerk ID - DBCBC W/PLT COUNT & AUTO [id number] 10:35:00 Test Item Value Reference Range Interpretation [...] code = 2801) ALPHA FETOPROTEIN (AFP), TUMOR [id number] 17:48:00 Test Item Value Reference Range Interpretation Comments ALPHA-FETOPROTEIN (BEAKER) (test 2.3 ng/mL <10.0 code = 1094) Audio Visual Equipment Rental Clerk ID - BSBASIC METABOLIC [id number] 16:33:00 Test Item Value Reference Range Interpretation [...] S NOT APPLICABLE FOR DIALYSIS PATIEN TS. Audio Visual Equipment Rental Clerk ID - BSHEPATIC FUNCTION [id number] 16:29:00 Test Item Value Reference Range Interpretation [...] (test code = 21 U/L 6-55 347) Audio Visual Equipment Rental Clerk ID - BSCBC W/PLT COUNT & AUTO [id number] 16:17:00 Test Item Value Reference Range Interpretation [...] PERCENT (BEAKER) (test code = 2801) PROTHROMBIN TIME/[id number] 16:16:00 Test Item Value Reference Range Interpretation [...] (test 2.8 ng/mL <10.0 code = 1094) Audio Visual Equipment Rental Clerk ID - DBBASIC METABOLIC [id number] 18:13:00 Test Item Value Reference Range Interpretation [...] S NOT APPLICABLE FOR DIALYSIS PATIEN TS. Audio Visual Equipment Rental Clerk ID - DBHEPATIC FUNCTION [id number] 18:13:00 Test Item Value Reference Range Interpretation [...] Specimen slightly (test code = 347) hemolyzed Audio Visual Equipment Rental Clerk ID - DBPROTHROMBIN TIME/[id number] 17:20:00 Test Item Value Reference Range Interpretation [...] ng/mL <10.0 code = 1094) BASIC METABOLIC [id number] 13:59:00 Test Item Value Reference Range Interpretation [...] DIALYSIS PATIEN TS. Specimen slightly ictericHEPATIC FUNCTION [id number] 13:59:00 Test Item Value Reference Range Interpretation [...] 21 U/L 6-55 347) Specimen slightly ictericPROTHROMBIN TIME/[id number] 13:43:00 Test Item Value Reference Range Interpretation [...] mechanical heart valves.CBC W/PLT COUNT & AUTO [id number] 13:37:00 Test Item Value Reference Range Interpretation [...] (BEAKER) (test code = 2801) BASIC METABOLIC [id number] 18:07:00 Test Item Value Reference Range Interpretation [...] DIALYSIS PATIEN TS. Specimen slightly ictericHEPATIC FUNCTION [id number] 18:07:00 Test Item Value Reference Range Interpretation [...] (test code = 347) hemolyzed Specimen slightly ictericPT/[id number] 17:56:00 Test Item Value Reference Range Interpretation [...] mechanical heart valves.CBC W/PLT COUNT & AUTO [id number] 17:44:00 Test Item Value Reference Range Interpretation [...] (test code = 2801) RAD, CHEST, 2 [id number] 17:15:00Referring: Dr. Eric Morel for exam:->sobFINAL REPORT [...] Valladares MDReportVerified Date/Time: 09/25/2019 17:15:28 Reading Location: [facility] Radiology Reading Room LACTIC ACID, [id number] 09:40:00 Test Item Value Reference Range Interpretation Comments LACTATE BLOOD VENOUS 2.7 mmol/L 0.5-2.2 H Specime n slightly (2) (BEAKER) (test hemolyzed code = 2872) Specimen slightly ictericCOMPREHENSIVE METABOLIC [id number] 09:31:00 Test Item Value Reference Range Interpretation [...] Specimen slightly ictericCBC W/PLT COUNT & AUTO [id number] 09:24:00 Test Item Value Reference Range Interpretation [...] = 2801) RAD, CHEST, 1 VIEW, NON [id number] 09:00:00Referring: Dr. Eric Morel for exam:->SHORTNESS OF BREATHShould [facility] be [facility]?->YesFINAL REPORT INDICATION: SHORTNESS OF BREATH [...] MDReport Verified Date/Time: 09/19/2019 09:00:49 Reading Location: [facility] Radiology Reading Room [id number] 01:00:00 Test Item Value Reference Range Interpretation Comments CULTURE (BEAKER) (test No growth in 5 days code = 1095) BLOOD [id number] 01:00:00 Test Item Value Reference Range Interpretation Comments CULTURE (BEAKER) (test No growth in 5 days code = 1095) COMPREHENSIVE METABOLIC [id number] 07:18:00 Test Item Value Reference Range Interpretation [...] APPLICABLE FOR DIALYSIS PATIEN TS. LACTIC ACID, [id number] 06:20:00 Test Item Value Reference Range Interpretation Comments LACTATE BLOOD VENOUS (2) (BEAKER) 1.2 mmol/L 0.5-2.2 (test code = 2872) CBC W/PLT COUNT & AUTO [id number] 06:02:00 Test Item Value Reference Range Interpretation [...] (BEAKER) (test code = 2801) U/S, ABDOMINAL, [id number] 02:23:00Referring: Dr. Eric Oneill limited area? Add comment if clarification [...] MDReport Verified Date/Time: 09/10/2019 18:38:06 Reading Location: [address] Consult Reading Room POCT-LACTIC ACID, [id number] 16:53:00 Test Item Value Reference Range Interpretation Comments POC-LACTIC ACID, 3.1 mmol/L 0.9-1.7 H TESTED AT [facility] [address] (BEAKER) (test [facility] code = 2805) [address] RAD, CHEST, 1 VIEW, NON [id number] 16:48:00Referring: Dr. Eric Morel for exam:->ABDOMINAL PAINShould [...] MDReport Verified Date/Time: 09/10/2019 16:48:56 Reading Location: [facility] Reading Room BASI METABOLIC [id number] 16:27:00 Test Item Value Reference Range Interpretation [...] DIALYSIS PATIEN TS. Specimen slightly ictericHEPATIC FUNCTION [id number] 16:27:00 Test Item Value Reference Range Interpretation [...] Specimen slightly ictericCBC W/PLT COUNT & AUTO [id number] 16:15:00 Test Item Value Reference Range Interpretation [...] PERCENT (BEAKER) (test code = 2801) TISSUE [id number] 15:15:00Surgical Pathology Report Case: [id number] Authorizing Provider: Obed James MD Collected: 08/13/2019 0950 Ordering Location: [facility] Endoscopy Received: 08/13/2019 1421 Services Pathologist: Constantine [...] POLYP, MULTIPLE. Signing Pathologist Direct Phone Line: [phone] signed by Constantine Linn MD on 08/14/2019 at 3:15 [id number] colonoscopyA. Small bowel, NOS, small bowel biopsy [...] Submitted in toto in block B1. HL/plPerformed. [facility], Department of Pathology, [address] [place] [address], [facility], [facility] of [facility], [address] [place] [address], [facility], Department of [facility], [address] [place] [address], cbc W/PLT COUNT & AUTO [id number] 07:33:00 Test Item Value Reference Range Interpretation [...] code = 2801) ALPHA FETOPROTEIN (AFP), TUMOR [id number] 19:11:00 Test Item Value Reference Range Interpretation Comments ALPHA-FETOPROTEIN (BEAKER) (test 2.8 ng/mL <10.0 code = 1094) BASIC METABOLIC [id number] 13:49:00 Test Item Value Reference Range Interpretation [...] DIALYSIS PATIEN TS. Specimen slightly ictericHEPATIC FUNCTION [id number] 13:49:00 Test Item Value Reference Range Interpretation [...] Specimen slightly ictericCBC W/PLT COUNT & AUTO [id number] 13:40:00 Test Item Value Reference Range Interpretation [...] PERCENT (BEAKER) (test code = 2801) PROTHROMBIN TIME/[id number] 13:37:00 Test Item Value Reference Range Interpretation [...] is2.5-3.5 for patients wiht mechanical heart valves.TISSUE [id number] 09:29:00Surgical Pathology Report Case: [id number] Authorizing Provider: Obed James MD Collected: 08/07/2018 0914 Ordering Location: [facility] Endoscopy Received: 08/07/2018 1134 Services Pathologist: Constantine Linn MD Specimens: A) - Small Bowel, NOS B) -Antrum PART A SMALL INTESTINE, BIOPSY:SMALL INTESTINAL MUCOSA WITH PRESERVED VILLOUS ARCHITECTURE.NO GRANULOMAS, ULCERATION, DYSPLASIA, OR INVASIVE CARCINOMA SEEN.PART B GASTRIC ANTRUM, BIOPSY:MILD CHRONIC INACTIVE GASTRITIS.WARTHIN STARRY STAIN FOR HELICOBACTER IS NEGATIVE. Signing Pathologist Direct Phone Line: [phone] signed by Constantine Linn MD on 08/09/2018 at 9:29 [id number], [id number] screening A. Small bowel. B. Antrum Specimen [...] in the diagnostic report above:BLOCK B1- MINGTARRYTISSUE [id number] 08:31:00Surgical Pathology Report Case: [id number] Authorizing Provider: Obed James MD Collected: 01/27/2018 1140 Ordering Location: [facility] Endoscopy Received: 01/27/2018 1533 Services Pathologist: Constantine Linn MD Specimen: Biopsy, Gastric, ANTRAL BX/FORCEP PART A GASTRIC ANTRUM BIOPSY:MILD CHRONIC INACTIVE GASTRITIS.WARTHIN STARRY STAIN FOR HELICOBACTER IS NEGATIVE. Signing Pathologist Direct Phone Line: [phone] signed by Constantine Linn MDon 01/30/2018 at 8:31 [id number], [id number] cirrhosis. Gastric antrum biopsy In formalin labeled "biopsy, gastric", description "antral biopsy" are three fragments measuring 0.6 x 0.5 x 0.1 cm in aggregate. Entirely submitted A1. DB/bc The following special studies were performed on this case and the interpretation is incorporated in the diagnostic report above:BLOCK A1- GALLO HERNÁNDEZMR, ABDOMEN, [id number] 09:41:00Referring: Dr. Eric Moscoso REPORT History: Portal [...] MDReport Verified Date/Time: 01/19/2018 09:41:39 Reading Location: [facility] Diagnostic Imaging Reading Room - [place] [address] Electronically signed by: LASHAE MERAZ M.D.on 01/19/2018 09:41 AM [id number] 08:28:00 Test Item Value Reference Range Interpretation Comments POC-CREATININE 0.7 mg/dL 0.6-1.[address] [facility] [address] ([facility]) (test [facility] [place] code = 1859) [address] POC-EGFR ([facility]) 83 mL/min/1.73M2 (test code = 1860) MR, ABDOMEN, [id number] 15:45:00Referring: Dr. Eric Morel for Exam:- >cirrhosis, [...] Ac Verified Date/Time: 07/29/2017 15:45:59 Reading Location: [address] Radiology Reading Room [id number] 10:20:00 Test Item Value Reference Range Interpretation Comments POC-CREATININE 0.8 mg/dL 0.6-1.[address] [facility] [address] ([facility]) (test [facility] [place] code = 1859) [address] POC-EGFR ([facility]) 72 mL/min/1.73M2 (test code = 1860) TISSUE [id number] 13:53:00Surgical Pathology Report Case: [id number] Authorizing Provider: Obed James MD Collected: 03/21/2017 0946 Ordering Location: [facility] Endoscopy Received: 03/21/2017 1202 Services Pathologist: eR Engel MD Specimen: Biopsy, Gastric, ANTRAL BX/FORCEP STOMACH, ANTRUM, BIOPSY: - ANTRAL MUCOSA WITH CHRONIC INACTIVE GASTRITIS, MILD MUCOSAL CONGESTION, AND INTESTINAL METAPLASIA [id number] ascitesAntrum gastric biopsyThe specimen is received in a formalin-filled container and labeled with the patient's information and labeled "antral gastric biopsy" and consists of a 0.1 cm fragment of eng soft tissue, submitted entirely A1. CG/plPerformed.The following special studies were performedon this case and the interpretation is incorporated in the diagnostic report above:Warthin Starry stain negative for Helicobacter pylori organisms. [id number] 07:58:00 Test Item Value Reference Range Interpretation Comments POC-POTASSIUM 4.8 meq/L 3.6-5.5 TESTED AT [facility] [address] ([facility]) (test code [facility] [address] = 1540) CBC W/PLT COUNT & AUTO [id number] 12:57:00 Test Item Value Reference Range Interpretation [...] code = 417) 0.00ALPHA FETOPROTEIN (AFP), TUMOR [id number] 12:30:00 Test Item Value Reference Range Interpretation Comments ALPHA-FETOPROTEIN (BEAKER) (test 3.1 ng/mL <10.0 code = 1094) Effective 09/03/2014: Reference Range ChangeNew: <10.0 Previous: 0.0-8.0 HEPATIC FUNCTION [id number] 12:10:00 Test Item Value Reference Range Interpretation [...] = 14 U/L 6-55 347) BASIC METABOLIC [id number] 12:10:00 Test Item Value Reference Range Interpretation [...] S NOT APPLICABLE FOR DIALYSIS PATIEN TS. [id number] 12:01:00 Test Item Value Reference Range Interpretation Comments FIBRINOGEN LEVEL (BEAKER) (test 269 mg/dl [id number] code = 658) PROTHROMBIN TIME/[id number] 12:00:00 Test Item Value Reference Range Interpretation [...]
--- NOTE | 2022-03-12 13:02 | RAD REPORT ---
EXAM DESCRIPTION: RAD - Pelvis - 03/12/2022 12:20 pm CLINICAL HISTORY: PAIN COMPARISON: Transvaginal Study Probe dated 09/25/2016 FINDINGS/IMPRESSION: No acute fracture. No malalignment. Moderate acetabular degenerative changes. D egenerative changes are also present at the pubic symphysis.
--- NOTE | 2022-03-12 13:02 | RAD REPORT ---
EXAM DESCRIPTION: RAD - Lumbar Spine 3 Views - 03/12/2022 12:20 pm CLINICAL HISTORY: PAIN COMPARISON: Stone Protocol dated 12/09/2020; Pelvis dated 03/12/2022 FINDINGS: Chronic appearing compression deformity at L3. No malalignment. Degenerative disc disease noted with endplate spurring and mild disc height loss. IMPRESSION: No acute osseous abnormality involving the lumbar spine.
--- NOTE | 2022-03-12 13:12 | ER ---
Nurse's Notes [facility] Name: Nelda Ramírez Age: 71 yrs Sex: Female : 1950 Arrival Date: 03/12/2022 Time: 10:08 Bed Waiting Private MD: Cristi Neal V Diagnosis: Low back pain Presentation: 03/12 10:11 Chief complaint: Patient states: right low back pain since yesterday, denies injury. iw 10:11 Acuity: SERGIO 4 iw 10:15 Coronavirus screen: At this time, the client does not indicate any symptoms associated iw with coronavirus-19. Ebola Screen: Patient negative for fever greater than or equal to 101.5 degrees Fahrenheit, and additional compatible Ebola Virus Disease symptoms Patient denies exposure to infectious person. Patient denies travel to an Ebola-affected area in the 21 days before illness onset. No symptoms or risks identified at this time. Initial Sepsis Screen: Does the patient meet any 2 criteria? No. Patient's initial sepsis screen is negative. Does the patient have a suspected source of infection? No. Patient's initial sepsis screen is negative. Risk Assessment: Do you want to hurt yourself or someone else? Patient reports no desire to harm self or others. Onset of symptoms was March 12, 2022. 10:15 Method Of Arrival: Ambulatory iw Historical: - Allergies: 10:12 Aspirin; iw 10:12 Cipro; iw 10:12 PENICILLINS; iw - PMHx: 10:15 CHF; Hypertension; Cirrhosis; short term memory loss; liver/kidney disease; iw - Family history:: not pertinent. - Hospitalizations: : No recent hospitalization is reported. Vital Signs: 13:25 BP 104 / 64; Pulse 80; Resp 16; Temp 97.1; Pulse Ox 100% on R/A; iw ED Course: 10:08 Patient arrived in ED. am2 10:08 Cristi Neal MD is Private Physician. am2 10:11 Triage completed. iw 10:16 Arm band placed on. iw 10:22 Blayne Schneider MD is Attending Physician. rn 12:22 XRAY Lumbar Spine (3 Views) In Process Unspecified. EDMS 12:22 XRAY Pelvis In Process Unspecified. EDMS 13:19 Yessica Ramos, GLADIS is Primary Nurse. iw Administered Medications: No medications were administered Outcome: 13:12 Discharge ordered by . rn 13:25 Patient left the ED. iw Signatures: Dispatcher [employer] EDYessica Waller RN RN iw Nieto, Roman, MD MD rn Moreno, Amanda am2
--- NOTE | 2022-03-12 13:13 | EDPHYS ---
Physician Documentation [facility] Name: Nelda Ramírez Age: 71 yrs Sex: Female : 1950 Arrival Date: 03/12/2022 Time: 10:08 Bed Waiting Private MD: Cristi Neal V ED Physician Blayne Schneider HPI: 03/12 13:07 This 71 yrs old Female presents to ER via Ambulatory with complaints of Hip rn Pain - right, Fall Injury - <2 wks ago. 13:07 The patient or guardian reports pain. that occurred at an unknown site, sustained from rn unknown reason, There is no obvious deformity, The patient is able to self ambulate. The patient is able to bear their full body weight. There is no radiation of the patient's discomfort. The complaints affect the right lower back. Onset: The symptoms/episode began/occurred at an unknown time. Modifying factors: The symptoms are alleviated by remaining still, the symptoms are aggravated by weight bearing. Associated signs and symptoms: Loss of consciousness: the patient experienced no loss of consciousness, Pertinent negatives: abdominal pain, fever, incontinence, shortness of breath, weakness. Severity of symptoms: At their worst the symptoms were mild, in the emergency department the symptoms are unchanged. It is unknown whether or not the patient has had similar symptoms in the past. The patient has been recently seen at the [facility]. Daughter reports right lower back pain, thinks for about 2 weeks since seen here for fall, was found to have foot contusion at that time, but back was not addressed. reports thinks has had pain for 2 weeks. Patient not really sure. Pt denies new fall or injury. Does report lifting items lately but doesn't recall specific injury or onset. . Historical: - Allergies: 10:12 Aspirin; iw 10:12 Cipro; iw 10:12 PENICILLINS; iw - PMHx: 10:15 CHF; Hypertension; Cirrhosis; short term memory loss; liver/kidney disease; iw - Family history:: not pertinent. - Hospitalizations: : No recent hospitalization is reported. ROS: 13:07 Constitutional: Negative for fever, chills, and weight loss, Eyes: Negative for injury, rn pain, redness, and discharge, Cardiovascular: Negative for chest pain, palpitations, and edema, Respiratory: Negative for shortness of breath, cough, wheezing, and pleuritic chest pain, Abdomen/GI: Negative for abdominal pain, nausea, vomiting, diarrhea, and constipation, Back: Negative for injury : Negative for injury, bleeding, discharge, and swelling, MS/Extremity: Negative for injury and deformity, Skin: Negative for injury, rash, and discoloration, Neuro: Negative for headache, weakness, numbness, tingling, and seizure. Exam: 13:07 Constitutional: This is a well developed, well nourished patient who is awake, alert, rn and in no acute distress. Ambulatory to room with walker, no acute distress Head/Face: Normocephalic, atraumatic. Cardiovascular: Regular rate and rhythm. No pulse deficits. Respiratory: No increased work of breathing, no retractions or nasal flaring. Abdomen/GI: soft, non-tender Back: No spinal tenderness. No costovertebral tenderness. No discoloration or skin changes. No masses Skin: Warm, dry MS/ Extremity: Pulses equal, no cyanosis. Neurovascular intact. Full, normal range of motion. Equal circumference. Neuro: Awake and alert, GCS 15, oriented to person, place, time, and situation. Cranial nerves II-XII grossly intact. Motor strength 5/5 in all extremities. Sensory grossly intact. Cerebellar exam normal. Ambulatory with walker. Vital Signs: 13:25 BP 104 / 64; Pulse 80; Resp 16; Temp 97.1; Pulse Ox 100% on R/A; iw MDM: 10:22 Patient medically screened. rn 13:07 Differential diagnosis: bursitis, arthritis, strain, radiculopathy, muscle spasm. rn Differential diagnosis: hip fracture. Data reviewed: vital signs, nurses notes. Data reviewed: radiologic studies, plain films, and as a result, I will discharge patient. Counseling: I had a detailed discussion with the patient and/or guardian regarding: the historical points, exam findings, and any diagnostic results supporting the discharge/admit diagnosis, radiology results, the need for outpatient follow up, to return to the emergency department if symptoms worsen or persist or if there are any questions or concerns that arise at home. Special discussion: I discussed with the patient/guardian in detail that at this point there is no indication for admission to the hospital. It is understood, however, that if the symptoms persist or worsen the patient needs to return immediately for re-evaluation. Based on the history and exam findings, there is no indication for further emergent testing or inpatient evaluation. I discussed with the patient/guardian the need to see the primary care provider for further evaluation of the symptoms. 03/12 10:26 Order name: XRAY Lumbar Spine (3 Views); Complete Time: 13:07 rn 03/12 10:26 Order name: XRAY Pelvis; Complete Time: 13:07 rn Administered Medications: No medications were administered Disposition Summary: 03/12/22 13:12 Discharge Ordered Location: Home rn Problem: new rn Symptoms: are unchanged rn Condition: Stable rn Diagnosis - Low back pain rn Followup: rn - With: Private Physician - When: As needed - Reason: Recheck today's complaints, Re-evaluation by your physician Discharge Instructions: - Discharge Summary Sheet rn - Acute Back Pain, Adult rn - Pain Without a Known Cause rn Forms: - Medication Reconciliation Form rn - Thank You Letter rn - Antibiotic criminal defense attorney - Prescription Opioid Use rn Signatures: Dispatcher [employer] Yessica Rosado RN RN Blayne Humphrey MD MD rn
[2022-03-12 13:35] VITALS: BP 104/64; TEMP 97.1; O2SAT 100
== END 2022-03-12 13:25 | disposition home or self-care (01) ==
LOC: ER 10:06
DX: M54.50 Low back pain, unspecified (principal); I10 Essential (primary) hypertension; Z88.0 Allergy status to penicillin; Z88.1 Allergy status to other antibiotic agents; Z88.6 Allergy status to analgesic agent
CPT/HCPCS: 72100; 72170; 99282

== ENCOUNTER 2022-09-30 14:26 | Inpatient (IN) | payer OTHER ==
--- OUTSIDE RECORDS SUMMARY | 2022-09-30 14:36 | XMS REPORT | Continuity of Care Document ---
:1950 Author Organization [facility] t Address [address] [place] [address] Care Team Providers Name Role Phone Val Boyce MD, Cristi Primary Care Physician ADITI HANSEN Attending Clinician Unavailable ELVIRA JAMES Attending Clinician Unavailable DILIP MUNOZ Attending Clinician Unavailable BASILIO ESTRELLA Attending Clinician Unavailable Elvira James MD Attending Clinician Basilio Boyer Attending Clinician [phone] Daja Woods RN Attending Clinician Unavailable Juana WILLSON MPH, Radha Ha Attending Clinician [phone] RADHA ARIAS Attending Clinician Unavailable Chelsea Ling MD Attending Clinician Sepideh Liz Attending Clinician [phone] SEPIDEH FIELD Attending Clinician Unavailable RAISSA MATIAS Attending Clinician Unavailable AFSHAN DEJESUS Attending Clinician Unavailable SHILOH BUCHANAN Attending Clinician Unavailable PRAFUL SPARROW Attending Clinician Unavailable Raissa Matias MD Attending Clinician GUTIERREZ SOUZA Attending Clinician Unavailable KATRIN DE LEON Attending Clinician Unavailable JEANCARLOS GALLARDO Attending Clinician Unavailable KIERA WALTON Attending Clinician Unavailable CHRIS CLEMENTS Attending Clinician Unavailable ADITI HANSEN Admitting Clinician Unavailable ELVIRA JAMES Admitting Clinician Unavailable DILIP MUNOZ Admitting Clinician Unavailable ARELIS LOWERY Admitting Clinician Unavailable CARLO AMOR Admitting Clinician Unavailable JOSE YOST Admitting Clinician Unavailable SUSIE METZGER Admitting Clinician Unavailable ANA LILIA SORIA Admitting Clinician Unavailable Payers Payer Name Policy Type Policy Number Effective Date Expiration Date S jesus MEDICARE A B [id number] 2015 00:00:00 [place]ICA[place] [id number] 2016 2016 [place] 00:00:00 00:00:00 MEDICARE PART A [id number] \\T\\ B - MEDICARE [facility]-MEDICAID - [id number] 2016 2017 MEDICAID 00:00:00 00:00:00 OUT OF STATE [id number] BCBS - PPO - BCBS Problems Condition Condition Condition Status Onset Resolution Last Treating Co mments Source Name Details Category Date Date Treatment Clinician Date Anemia, Anemia, Disease Active [facility] unspecifie unspecifie 02-15 [place] d type d type 00:00: Medical 00 Center Pancreatic Pancreatic Disease Active [facility] cyst cyst 02-15 [facility] 00[facility] Abnormal Abnormal Disease [facility] liver liver 02-15 [facility] enzymes enzymes 00:00: Medical 00 Center Hyperbilir Hyperbilir Disease Active 2021-[address] ubinemia ubinemia 5-02 [facility] 00:00: Medical 00 [place] Abnormal Abnormal Disease Active [facility] vaginal vaginal 3-01 [facility] bleeding bleeding 00:00: Medica l 00 Center Urinary Urinary Disease Active [facility] retention retention 3-01 [facility] 00:00: Medical 00 [place] Acute Acute Disease Active [facility] hepatic hepatic 2-23 [facility] encephalop encephalop 00:00: Sd dical athy athy 00 [place] Decompensa Decompensa Disease Active [facility] jacquelyn liver jacquelyn liver 2-10 [facility] disease disease 00:00: Medical 00 [place] NAFLD NAFLD Disease Active [facility] (nonalcoho (nonalcoho 2-10 [place] lic fatty lic fatty 00:00: Medi nathan liver liver 00 Center disease) disease) JOSE MANUEL (acute JOSE MANUEL (acute Disease Active [facility] kidney kidney 2-10 [facility] injury) injury) 00:00: Medical 00 [place] Peripheral Peripheral Disease Active [facility] edema edema 2-10 [facility] 00:00: Medical 00 [place] Acute Acute Disease Active [facility] ischemic ischemic 1-08 [facility] left 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 left 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 00:00: Medica l stroke stroke 00 Center Visual Visual Disease Active [facility] field cut field cut 1-07 [facility] 00:00: Medical 00 [place] Portal Portal Disease Active [facility] vein vein 5-01 [facility] thrombosis thrombosis 00:00: Me dical 00 [place] Iron Iron Disease Active [facility] deficiency deficiency 5-01 [place] anemia anemia 00:00: Medical secondary secondary 00 Cent er to to inadequate inadequate dietary dietary iron iron intake intake SOB SOB Disease Active 2018-[address] [facility] (shortness (shortness 2-10 [place] of breath) of breath) 00:00: Me dical 00 [place] Generalize Generalize Disease Active 2018-[address] d d 1-25 [facility] abdominal abdominal 00:00: Medi nathan pain pain 00 Center Community Community Disease Active 2018-[address] [facility] acquired acquired 1-25 [facility] bacterial bacterial 00:00: Medi nathan pneumonia pneumonia 00 Cent er Abnormal Abnormal Disease Active [facility] magnetic magnetic 7-06 [facility] resonance resonance 00:00: Medi nathan imaging of imaging of 00 Ce nter chest chest Cirrhosis Cirrhosis Disease Active [facility] (HCCode) (HCCode) 1-14 [facility] e 00:00: of 00 Medicin e Postmenopa Postmenopa Disease Active M ethodi usal usal 5-10 st bleeding bleeding 00:00: Hospit a 00 l Screening Screening Disease Active [facility] for cancer for cancer 1-10 [facility] [facility] 00:00: Medical 00 [place] Fatty Fatty Disease Active [facility] liver liver 7-19 [facility] disease, disease, 00:00: Medica l nonalcohol nonalcohol 00 Ce nter ic ic Acute Acute Disease Active [facility] kidney kidney 1-23 [facility] injury injury 00:00: Medical 00 [place] Acute Acute Disease Active [facility] confusion confusion -22 [facility] 00:00: Medical 00 [place] Cirrhosis Cirrhosis Disease Active Last [facility] St of liver of liver -20 Assessmen [facility] with with 00:00: t & Plan: Medical ascites ascites 00 Formattin [facility] g of this note might be different from the original. Cirrhosis with decompens ation symptoms (ascites, varices) diagnosed via CT imaging in September 2015. Etiology unknown at this time. ethnicity and obesity are risk factors for cirrhosis due to non-alcoh olic fatty liver disease. Full hepatic work workup and MRI ordered today to screen for viral, autoimmun e and genetic causes of liver disease. Ascites Ascites Disease Active Last [facility] St 1-20 Assessmen [facility] 00:00: t & Plan: Medical 00 Formattin Center g of this note might be different from the original. Ascites for diagnosed with admission to outside [...] [facility] status status 1-20 Assessmen [place] testing testing 00:00: t & Plan: Medic al 00 Formattin [place] g of this note might be different from the original. Serologie s for HAV, HBV and HCV ordered today to screen for prior exposure to HBV or HCV and vaccinati on for HAV and HBV. Portal Portal Disease Active [facility] hypertensi hypertensi 1-20 Assessmen [place] on on 00:00: t & Plan: Medical [address] [place] [address] g of this note might be different from the original. CT scan in September 2015 revealed large recannuli zed umbilical vein and numerous abdominal and pelvic varices. Treated with propranol ol 60 mg per day and diuretics . Obesity Obesity Disease Active [facility] 00:[facility]: t & Plan: Medical [address] [place] [address] g of this note might be different from the original. BMI today 29.86 which places her at risk for fatty liver. Stressed the importanc e of a 10% weight loss over the next 6 months with low carbohydr ate diet and increased exercise. Education al materials and low calorie recipes provided. Fatigue Fatigue Disease Active [facility] 00:00: t & Plan: Medical [address] [place] [address] g of this note might be different from the original. Patient complains of increasin g fatigue over the past few months. TSH ordered to screen for hypothyro id state. Hepatic Hepatic Disease Active [facility] encephalop encephalop 11-05 [facility][Note 3] athy athy 00:00: t & Plan: [address] g of this note might be different from the original. Symptoms of increased confusion and memory loss [...] Date Date Clinician Ciproflo Propensi Active Rash Method i xacin ty to 02-22 adverse 00:00: Hospita reaction 00 l s to drug Penicill Propensi Active Hives Method i ins ty to 02-22 adverse 00:00: Hospita reaction 00 l s to drug Ciproflo Propensi Active [facility] xacin ty to 02-18 [place] adverse 00:00: of reaction 00 Medicin s to e drug Penicill Propensi Active [facility] ins ty to 5-05 College adverse 00:00: of reaction 00 Medicin s to e drug CIPROFLO Allergy Active Low Hives [facility] XACIN 2- [facility] 00:00: Medical 00 Center Ciproflo Drug Active Hives, Rash, Redness [facility] xacin Allergy Other (See 2 at [facility] Comments) 00:00: injection Medi nathan 00 siteOther Center reaction( s): PENICILL Allergy Active Low Hives [facility] INS -20 [facility] 00:00: Medical 00 Center Penicill Drug Active Hives, Rash [facility] ins Allergy -20 [facility] 00:00: Medical 00 Center Family History Family Member Diagnosis Comments Start Date Stop Date Source Natural father No Known Problems [facility] Natural mother No Known Problems [facility] Social History Social Habit Start Date Stop Date Quantity Comments Source History SDOH [facility] Alcohol Std Drinks Medica l Center History SDOH [facility] Alcohol Binge Medical Aissatou ter History SDOH [facility] Alcohol Comment Medical C enter Alcohol intake 2022-08-30 2022-08-[address] [facility] 00:00:00 00:00:00 non-drinker Medical Cente r (finding) History SDOH 2021-11-18 2021-11-[address] [facility] Alcohol Frequency 00:00:00 00:00:00 [facility] Tobacco Comment 2017-03-17 2017-03-17 States she never [facility] 00:00:00 00:00:00 really smoked. Medical Ce nter Cigarettes smoked 2015-11-05 2015-11-[address] [facility] current (pack per 00:00:00 00:00:00 Medical Center day) - Reported Cigarette 2015-11-05 2015-11-[address] [facility] pack-years 00:00:00 00:00:00 Medical Center Tobacco use and 2015-11-05 2015-11-[address] [facility] [place] exposure 00:00:00 00:00:00 Medical Center History of tobacco 1995-10-17 [address] [facility] use 00:00:00 Medical Center Sex Assigned At [address] [facility] [place] 00:00:00 00:00:00 Medical Center Smoking Status Start Date Stop Date Source Never smoker [facility] o Medicine Former smoker 2015-11-05 00:00:00 2015-11-05 00:00:[address] [facility] Medications Ordered Filled Start Stop Current Ordering Indication Dosage Frequency Signature Comments Components Source Medication Medication Date Date Medication? Clinician (SIG) Name Name rivastigmin 2021-10 Yes 1{patch QD Place [address] e (EXELON) 1-14 } patch onto Denise es 4.6 mg/24 09:27: the skin Medi nathan hour patch 42 daily. Center vit 2021-10 Yes Take by [facility] St C/E/Zn/sabrina 1-14 mouth. Lukes r/lutein/ze 09:27: Medica l axan 42 Center (PRESERVISI ON AREDS-2 ORAL) torsemide Yes Other 20mg QD Take 1 [facility] t (DEMADEX) 8-10 ascites tablet (20 L ukes 20 MG 00:00: mg total) Medical tablet 00 by mouth Center daily. lactulose Yes Hyperkalemi 20g Q.[id number] Take [address] (CHRONULAC) 6-13 a [id number] mLs (20 g [facility] 10 gram/15 00:00: 3D total) by Sd dical mL (15 mL) 00 mouth 3 Center solution (three) times daily. rifAXIMin Yes Hyperkalemi 550mg Q.5D Take [address] 550 mg Tab 6-13 a tablet [facility]ukes 00:00: (550 mg Medical 00 total) by Center mouth 2 (two) times daily. spironolact Yes Hyperkalemi 25mg QD Take 0.[address] one 6-13 a tablets [facility] (ALDACTONE) 00:00: (25 mg Medi nathan 50 MG 00 total) by Center tablet mouth daily. torsemide 2021- No Other 20mg QD Take [address] (DEMADEX) 6-13 08-10 ascites tablet (20 [facility] 20 MG 00:00: 00:00 mg total) Medica l tablet 00 :00 by mouth Center daily. rifAXIMin 2020-10- No Hyperkalemi 550mg Q.5D Take [address] 550 mg Tab 2-06 06-13 a tablet [facility] 00:00: 00:00 (550 mg Medical 00 :00 total) by Center mouth 2 (two) times daily. lactulose 2020-10 No Hyperkalemi 20g Q.[id number] Take [address] (CHRONULAC) 11-22- a [id number] mLs (20 g [facility] 10 gram/15 00:00: 00:00 3D total) by edical mL (15 mL) 00 :00 mouth 3 Center solution (three) times daily. torsemide 2020-10- No Other 20mg QD Take [address] (DEMADEX) 11-22 ascites tablet (20 [facility] 20 MG 00:00: 00:00 mg total) Medica l tablet 00 :00 by mouth Center daily. spironolact 2020-10 No Hyperkalemi 25mg QD Take 0.[address] one 11-22 a tablets [facility] (ALDACTONE) 00:00: 00:00 (25 mg Med ical 50 MG 00 :00 total) by Center tablet mouth daily. RifAXIMin 2020-10 Yes 1{tbl} Take 1 Tab [facility] (XIFAXAN) 0-14 by mouth Colleg e 550 MG TABS 13:10: two times o f 18 daily. Medicin e spironolact 2020-10 Yes 100mg Take 100 [facility] one 0-14 mg by [place] (ALDACTONE) 13:10: mouth of 100 MG 18 daily. Medicin tablet e lactulose 2020-10 Yes 20g Take 20 g [facility] (CHRONULAC) 0-14 by mouth 3 Co llege 10 GM/15ML 13:10: times of solution 18 daily. Medicin e furosemide 2020-10 No 20mg Take 20 mg [facility] (LASIX) 20 0-14 10-14 by mouth Franny ege MG tablet 13:10: 00:00 daily. of 07 :00 Medicin e rivastigmin Yes [facility] e 4.6 9-29 College MG/24HR 00:00: of PT24 00 Medicin e enoxaparin 2021- No 40mg QD Inject 0.[address] (LOVENOX) 5-25 02-07 mLs (40 mg Den[place] es 40 mg/0.4 00:00: 00:00 total) Medic al mL Syrg 00 :00 subcutaneo Center usly nightly. propranolol 2020- No 60mg Take 60 mg [facility] (INDERAL 12-1804 by mouth Gabriela ferrera [place]) 60 MG 14:11: 00:00 daily. of [...] r (PROAMATINE 2-22 10-14 TABLET BY Co reymundo ) 5 MG 00:00: 00:00 MOUTH of tablet 00 :00 THREE Medicin TIMES e DAILY aspirin EC 2021- No 81mg Take 81 mg [facility] 81 MG 10-25 by mouth. College tablet 00:00: 05:59 of 00 :00 Medicin e aspirin EC 2021- No 81mg Take 81 mg Jameel 81 MG 10-25 by mouth. College tablet 00:00: 05:59 of 00 :00 Medicin e aspirin 81 2021- No 81mg QD Take [address] MG chewable 10-25 tablet (81 L ukes tablet 00:00: 23:59 mg total) Medic al 00 :00 by mouth Center daily. furosemide Yes 20mg Take 20 mg [facility] (LASIX) 20 1-12 by mouth Colle ge MG tablet 19:21: daily. of 17 Medicin e RifAXIMin Yes 1{tbl} Take 1 Tab [facility] (XIFAXAN) 1-12 by mouth Colleg e 550 MG TABS 19:21: two times o f 17 daily. Medicin e spironolact Yes 100mg Take 100 [facility] one 1-12 mg by [place] (ALDACTONE) 19:21: mouth of 100 MG 17 daily. Medicin tablet e lactulose Yes 20g Take 20 g [facility] (CHRONULAC) 1-12 by mouth 3 Co llege 10 GM/15ML 19:21: times of solution 17 daily. Medicin e spironolact Yes 100mg QD Take 100 M ethodi one 5-[address] (ALDACTONE) 10:23: mouth Hospi ta 100 MG 21 daily. l tablet propranolol Yes [facility] [place] (INDERAL 5-05 st [place]) 60 MG 00:00: Hospita 24 hr 00 l capsule enoxaparin Yes [facility] (LOVENOX) 5-05 st 100 mg/mL 00:00: Hospita syringe 00 l lactulose Yes [facility] (CHRONULAC) 4-21 st 10 gram/15 00:00: Hospita mL solution 00 l XIFAXAN 550 Yes Method i mg tablet 4-14 st 00:00: Hospita 00 l furosemide Yes [facility] (LASIX) 20 3-13 st mg tablet 00:00: Hospita 00 l Immunizations Ordered Immunization Filled Immunization Date Status Commen ts Source Name Name Influenza Hd 2020-08-15 Completed [facility] ge 00:00:00 of Medicine Zoster Recombinant 2020-08-15 Completed [facility] 00:00:00 of Medicine Influenza Hd 2020-08-15 Completed [facility] ge 00:00:00 of Medicine Zoster Recombinant 2020-08-15 Completed [facility] 00:00:00 of Medicine Pneumococcal 2019-09-06 Completed [facility] ge Polysaccharide 00:00:00 of Medicin e Pneumococcal 2019-09-06 Completed [facility] ge Polysaccharide 00:00:00 of Medicin e Vital Signs Vital Name Observation Time Observation Value Comments Source HEIGHT 2021-02-25 13:49:00 167.6 cm WEIGHT 2021-02-25 13:49:00 95.255 kg HEIGHT 2020-12-09 21:00:00 167.6 cm WEIGHT 2020-12-09 21:00:00 89.812 kg HEIGHT 2022-08-30 09:26:00 167.6 cm WEIGHT 2022-08-30 09:26:00 107.502 kg HEIGHT 2022-08-30 09:26:00 167.6 cm WEIGHT 2022-08-30 09:26:00 107.502 kg HEIGHT 2022-08-30 09:26:00 167.6 cm WEIGHT 2022-08-30 09:26:00 107.502 kg HEIGHT 2022-03-29 09:43:00 167.6 cm WEIGHT 2022-03-29 09:43:00 102.468 kg HEIGHT 2022-03-29 09:43:00 167.6 cm WEIGHT 2022-03-29 09:43:00 102.468 kg HEIGHT 2022-03-29 09:43:00 167.6 cm WEIGHT 2022-03-29 09:43:00 102.468 kg HEIGHT 2021-11-23 09:09:00 167.6 cm WEIGHT [...] kg Systolic blood 2021-07-30 18:08:00 129 mm[Hg] [facility] pressure Medicine Diastolic blood 2021-07-30 18:08:00 67 mm[Hg] [facility] pressure Medicine Heart rate 2021-07-30 18:08:00 86 /min [facility] Body temperature 2021-07-30 18:08:00 36.78 Cony [facility] HEIGHT 2021-03-17 15:32:00 167.6 cm [...] kg Systolic blood 2020-12-18 14:11:00 115 mm[Hg] [facility] pressure Medicine Diastolic blood 2020-12-18 14:11:00 56 mm[Hg] [facility] Medicine Heart rate 2020-12-18 14:11:00 92 /min [facility] Respiratory rate 2020-12-18 14:11:00 17 /min [facility] HEIGHT 2020-12-09 21:00:00 167.6 cm [...] 167.6 cm WEIGHT 2020-08-06 13:32:00 90.266 kg Systolic blood 2022-08-30 09:26:00 125 mm[Hg] [facility] Diastolic blood 2022-08-30 09:26:00 61 mm[Hg] [facility] Heart rate 2022-08-30 09:26:00 114 /min [facility] Body temperature 2022-08-30 09:26:00 36.56 Cony [facility] Respiratory rate 2022-08-30 09:26:00 18 /min [facility] Body height 2022-08-30 09:26:00 167.6 cm [facility] Body weight 2022-08-30 09:26:00 107.502 kg [facility] BMI 2022-08-30 09:26:00 38.25 kg/m2 [facility] Oxygen saturation in 2022-08-30 09:26:00 95 /min [facility] Arterial blood by Medical Ce nter Pulse oximetry Procedures Procedure Date / Time Performed Performing Clinician [facility] e BASIC METABOLIC PANEL 2022-08-30 10:02:00 Estrella, Line [place]rup [facility] HEPATIC FUNCTION PANEL 2022-08-30 10:02:00 Estrella, Line Kastru p [facility] CBC W/PLT COUNT & AUTO 2022-08-30 10:02:00 Estrella, Line Kastru p [facility] CBC W/PLT COUNT & AUTO 2022-08-30 10:02:00 Estrella, Line Kastru p [facility] MR ABDOMEN WITH & 2022-04-21 10:30:00 Estrella, Line [place] [facility] WITHOUT IV CONTRAST Medical [facility] er HEPATIC FUNCTION PANEL 2022-03-29 10:48:00 Estrella, Line Kastru p [facility] CBC W/PLT COUNT & AUTO 2022-03-29 10:48:00 Estrella, Line Kastru p [facility] PROTHROMBIN TIME/INR 2022-03-29 10:48:00 Estrella, Line [place] [facility] ALPHA FETOPROTEIN (AFP), 2022-03-29 10:48:00 Estrella, Line Kast rup [facility] TUMOR MARKER [facility] CBC W/PLT COUNT & AUTO 2022-03-29 10:48:00 Estrella, Line Kastru p [facility] BASIC METABOLIC PANEL 2022-03-29 10:48:00 Estrella, Line [place] [facility] REPORT OF PROCEDURE - 2021-11-23 11:11:30 Elvira James [facility] ENDOSCOPY [facility] TISSUE EXAM 2021-11-23 10:57:00 Elvira James [facility] ESOPHAGOGASTRODUODENOSCO 2021-11-23 10:33:[address] [facility], WITH BIOPSY [facility] MR ABDOMEN WITH & 2021-10-15 16:22:[address] [facility] WITHOUT IV CONTRAST Medical Cent er Plan of Care Planned Activity Planned Date Details Comments Source Future Scheduled 2029-08-[address] [facility] Test 00:00:00 [facility] colon (procedure) [code = 649035716] Future Scheduled 2029-08-[address] [facility] Test 00:00:00 [facility] colon (procedure) [code = 805149626] Future Scheduled 2023-08-[address] [facility] Test 00:00:00 Counseling and Medical Cente r Screening (12+) [code = Tobacco Cessation Counseling and Screening (12+)] Future Scheduled 2022-08-21 HEPATITIS B VACCINES [facility] Test 15:08:00 (1 of 3 - 3-dose series) [code = HEPATITIS B VACCINES (1 of 3 - 3-dose series)] Future Scheduled 2022-08-21 COVID-19 VACCINE (#1) [facility] Test 15:08:00 [code = COVID-19 VACCINE (#1)] Future Scheduled 2022-08-21 BREAST CANCER [facility] Test 15:08:00 SCREENING [code = BREAST CANCER SCREENING] Future Scheduled 2022-08-21 COLONOSCOPY SCREENING [facility] Test 15:08:00 [code = COLONOSCOPY SCREENING] Future Scheduled 2022-08-21 SHINGLES VACCINES (1 [facility] Test 15:08:00 of 2) [code = SHINGLES VACCINES (1 of 2)] Future Scheduled 2022-08-21 65+ [facility]UMOCOCCAL [facility] Test 15:08:00 VACCINE (1 - PCV) [code = 65+ PNEUMOCOCCAL VACCINE (1 - PCV)] Future Scheduled 2022-08-21 INFLUENZA VACCINE [facility] Test 15:08:00 [code = INFLUENZA VACCINE] Future Scheduled 2022-06-17 INFLUENZA VACCINE (#1[facility] Test 00:00:00 [code = INFLUENZA Medical Ce nter VACCINE (#1)] Future Scheduled 2021-10-[address] [facility] Test 00:00:00 (12+) [code = Medical Center DEPRESSION SCREENING (12+)] Future Scheduled 2021-10-17 FALLS RISK SCREENING [facility] Test 00:00:00 [code = FALLS RISK Medical C enter SCREENING] Future Scheduled 2021-07-30 Screening for [facility] of Test 13:08:55 malignant neoplasm of Medici ne colon (procedure) [code = 650759432] Future Scheduled 2021-07-30 Screening for [facility] of Test 13:08:55 malignant neoplasm of Medici ne breast (procedure) [code = 981514898] Future Scheduled 2021-07-30 COVID-19 Vaccine (1) [facility] of Test 13:08:55 [code = COVID-19 Medicine Vaccine (1)] Future Scheduled 2021-07-30 TETANUS SHOT (ADULT) [facility] of Test 13:08:55 [code = TETANUS SHOT Medicin e (ADULT)] Future Scheduled 2021-07-30 Hepatitis C screening Ba [facility] of Test 13:08:55 (procedure) [code = Medicine [id number]] Future Scheduled 2021-07-30 MEDICARE AWV (Initial) [facility] of Test 13:08:55 [code = MEDICARE AWV Medicin e (Initial)] Future Scheduled 2021-07-30 FALL SCREEN [code = [facility] of Test 13:08:55 FALL SCREEN] Medicine Future Scheduled 2021-07-30 Screening for [facility] Col lege of Test 13:08:55 osteoporosis Medicine (procedure) [code = 770319896] Future Scheduled 2021-07-30 ZOSTER VACCINE (2 of [facility] of Test 13:08:55 2) [code = ZOSTER Medicine VACCINE (2 of 2)] Future Scheduled 2021-07-30 FLU VACCINE > 6 MONTHS B [facility] of Test 13:08:55 [code = FLU VACCINE > Medici ne 6 MONTHS] Future Scheduled 2020-10-10 SHINGLES VACCINES ([address] [facility] Test 00:00:00 of 2) [code = SHINGLES Medic al Center VACCINES (2 of 2)] Future Scheduled 2020-09-06 PNEUMOCOCCAL 65+ YRS [facility] Test 00:00:00 (2 - PCV) [code = Medical Ce nter PNEUMOCOCCAL 65+ YRS (2 - PCV)] Future Scheduled 2016-06-[address] [facility] Test 00:00:00 WELLNESS (YEAR 2 or Medical Center FIRST YEAR if no IPPE) [code = MEDICARE ANNUAL WELLNESS (YEAR 2 or FIRST YEAR if no IPPE)] Future Scheduled 1969 DTAP/TDAP/TD VACCINES [facility] Test 00:00:00 (1 - Tdap) [code = Medical C enter DTAP/TDAP/TD VACCINES (1 - Tdap)] Future Scheduled 1950 COVID-19 VACCINE (#1) [facility] Test 00:00:00 [code = COVID-[address] VACCINE (#1)] Future Scheduled [address] [facility] Test 00:00:00 [facility] breast (procedure) [code = 281004487] Future Scheduled [address] CT Colonography [facility] 00:[facility]:00 (combo) [code = CT Medical C enter Colonography (combo)] Future Scheduled 1950 DXA SCAN [code = DXA [facility] 00:[facility]:00 SCAN] [facility] Future Scheduled [address] [facility] 00:00:00 [facility] colon (procedure) [code = 794020620] Future Scheduled [address] [facility] 00:00:00 [facility] colon (procedure) [code = 336021887] Future Scheduled 1950 Sigmoidoscopy [code = [facility] Future Scheduled COLON CANCER [facility] Franny ege of Test SCREENING: COLONOSCOPY Medic ine [code = COLON CANCER SCREENING: COLONOSCOPY] Future Scheduled COVID-19 Vaccine [facility] of Test Evaluation [code = Medicine COVID-19 Vaccine Evaluation] Future Scheduled MAMMOGRAM ANNUAL [code B [facility] of Test = MAMMOGRAM ANNUAL] Medicine Future Scheduled TETANUS SHOT (ADULT) [facility] of Test [code = TETANUS SHOT Medicin e (ADULT)] Future Scheduled HEPATITIS C SCREENING Ba [facility] of Test [code = HEPATITIS C Medicine SCREENING] Future Scheduled MEDICARE AWV (Initial) [facility] of Test [code = MEDICARE AWV Medicin e (Initial)] Future Scheduled FALL SCREEN [code = [facility] of Test FALL SCREEN] Medicine Future Scheduled OSTEOPOROSIS SCREENING B [facility] of Test [code = OSTEOPOROSIS Medicin e SCREENING] Future Scheduled ZOSTER VACCINE (2 of [facility] of Test 2) [code = ZOSTER Medicine VACCINE (2 of 2)] Encounters Start End Encounter Admission Attending Care Care Encounter Source Date/Time Date/Time Type Type Clinicians Facility Department ID 2021-07-25 [facility] [id number] SLE 17:58:27 ADITI 2021-07-25 [facility] [id number] SLE 07:51:27 ELVIRA 2020-12-09 Inpatient ER [facility] [id number] SLE 20:16:00 [facility] 2023-02-28 2023-02-28 Outpatient [facility] [id number] SLE 00:00:00 00:00:00 2022-10-26 2022-10-26 Outpatient DELORES [facility] [id number] SLE 00:00:00 00:00:00 [facility] 2022-09-21 2022-09-21 Outpatient [facility] [id number] SLE 00:00:00 00:00:00 2022-08-30 2022-08-[address] [facility] [id number] ELAYNE Wen 09:00:00 09:30:00 Visit EstrellaBasilio bazan [facility] 2022-08-30 2022-08-30 Outpatient DELORES [facility] [id number] SLE 09:04:28 09:04:28 [facility] 2022-05-26 2022-05-[address] [facility] [id number] 00:00:00 00:00:00 [facility] 2022-04-21 2022-04-21 Outpatient JHON ESTRELLA [facility] [id number] SLE 09:05:55 23:59:00 [facility] 2022-04-21 2022-04-21 [facility] [id number] 09:00:00 23:59:[address] [facility] 2022-03-29 2022-03-[address] [facility] [id number] 09:30:00 10:00:00 Visit Basilio Estrella [facility] 2022-03-29 2022-03-29 Outpatient JHON ESTRELLA [facility] [id number] SLE 08:58:48 08:58:48 LINE 2021-11-23 2021-11-[address] [facility] [id number] 08:55:00 12:10:00 Encounter [facility] 2021-11-23 2021-11-23 Outpatient JHON JAMES [facility] Surgery [id number] SLE 08:55:00 12:10:00 [facility] 2021-11-23 2021-11-[address] [facility] [id number] 10:37:00 11:10:00 Event [facility] 2021-11-23 2021-11-[address] [facility] [id number] 10:30:00 11:00:00 [facility] 2021-11-23 2021-11-23 Travel [facility] [id number] [facility] 00:[facility]00 00:00:00 [facility] 2021-11-19 2021-11-[address] [facility] [id number] 00:00:00 00:00:00 Only [facility] 2021-11-19 2021-11-[address] [facility] [id number] 00:00:00 00:00:00 [facility] 2021-11-18 2021-11-18 Outpatient EL [facility] [id number] [facility] 15:05:50 23:59:00 2021-11-18 2021-11-18 [facility] [id number] 13:45:00 23:59:00 Encounter [facility] 2021-11-18 2021-11-18 Travel [facility] [id number] [facility] 00:[facility]:00 00:00:00 [facility] 2021-11-14 2021-11-14 Refill Delores, [facility] [id number] 00:00:00 00:00:00 Line [facility] 2021-10-23 2021-10-23 [facility] [id number] 00:00:00 00:00:00 [facility] 2021-10-23 2021-10-23 [facility] [id number] 00:00:00 00:00:00 Only [facility] 2021-10-22 2021-10-22 Telephone [facility] [id number] 00:00:00 00:00:00 [facility] 2021-10-15 2021-10-15 [facility] [id number] 13:19:59 23:59:00 Encounter [facility] 2021-10-15 2021-10-15 Outpatient EL RASHIDA SLE SLE [id number] SLE 13:19:59 23:59:00 [facility] 2021-10-13 2021-10-13 Outpatient EL RASHIDA, SLEH SLE [id number] [facility] 00:00:00 00:00:00 [facility] 2021-09-21 2021-09-21 Outpatient EL RASHIDA [facility] SLE [id number] SLE 08:26:43 08:26:43 [facility] 2021-08-06 2021-08-06 Outpatient [facility]H SLE [id number] [facility] 00:00:00 00:00:00 2021-07-30 2021-07-30 JOE Mena [id number] [facility] 12:13:14 13:48:55 Visit RAISSA AMBULATOR [id number] College Y [id number] Medi rosi 300 e 2021-07-14 2021-07-14 Outpatient EL [facility]H [facility] [id number] [facility] 00:00:00 00:00:00 2021-04-16 2021-04-16 Outpatient SLEH [facility] [id number] [facility] 00:00:00 00:00:00 2021-03-17 2021-03-17 Emergency ER SLE Emergency [id number] [facility] 15:10:00 15:10:00 2021-03-02 2021-03-02 Emergency ER SLE Emergency [id number] [facility] 10:16:00 10:16:00 2021-02-28 2021-02-28 Emergency ER [facility] Emergency [id number] [facility] 12:34:00 12:34:00 2021-02-25 2021-02-25 Outpatient EL SLEH [facility] [id number] [facility] 00:00:00 00:00:00 2021-02-06 2021-02-06 Outpatient EL HILTONLAL, SLEH SLEH [id number] [facility] 00:00:00 00:00:00 PRASUN 2021-02-04 2021-02-04 Outpatient EL SLEH [facility] [id number] [facility] 00:00:00 00:00:00 2021-02-04 2021-02-04 Outpatient EL SLEH [facility] [id number] [facility] 00:00:00 00:00:00 2021-01-29 2021-01-29 Outpatient EL HILTONLAL, SLEH SLEH [id number] [facility] 00:00:00 00:00:00 PRASUN 2021-01-22 2021-01-22 Outpatient EL JALAL, SLEH SLEH [id number] [facility] 00:00:00 00:00:00 PRASUN 2021-01-15 2021-01-15 Outpatient EL SLEH [facility] [id number] [facility] 00:00:00 00:00:00 2020-12-18 2020-12-18 Office JOE Matias [id number] [facility] 07:46:17 07:56:17 Visit Raissa AMBULATOR [id number] College Y [id number] [facility] 300 e 2020-12-05 2020-12-05 [facility] [id number] [facility] 00:00:00 00:00:00 2020-11-26 2020-11-26 Emergency ER SLE Emergency [id number] SLE 08:57:00 08:57:00 2020-10-23 2020-10-23 Emergency ER SLE Emergency [id number] SLE 14:38:00 14:38:00 2020-09-27 2020-09-27 Emergency ER [facility] Emergency [id number] SLE 10:04:00 10:04:00 2020-08-06 2020-08-06 Outpatient EL [facility] [id number] SLE 00:00:00 00:00:00 2020-07-30 2020-07-30 Outpatient EL [facility] [id number] SLE 00:00:00 00:00:00 2020-07-28 2020-07-28 Outpatient EL [facility] [id number] SLE 00:00:00 00:00:00 2020-02-14 2020-02-14 Outpatient [facility] [id number] SLEH 00:00:00 00:00:00 [id number] Results Test Description Test Time Test Comments Results Result Comments Source BASIC METABOLIC PANEL 2022-08-30 11:27:10 Test Item Value Reference Range Interpretation Comme nts SODIUM (BEAKER) (test 141 meq/L 136-145 code = 381) POTASSIUM (BEAKER) 3.6 meq/L 3.5-5.1 (test code = 379) CHLORIDE (BEAKER) (test 99 meq/L 98-107 code = 382) CO2 (BEAKER) (test code 31 meq/L 22-29 H = 355) BLOOD UREA NITROGEN 15 mg/dL 7-21 (BEAKER) (test code = 354) CREATININE (BEAKER) 1.08 mg/dL 0.57-1.25 (test code = 358) GLUCOSE RANDOM (BEAKER) 130 mg/dL 70-105 H (test code = 652) CALCIUM (BEAKER) (test 8.7 mg/dL 8.4-10.2 code = 697) EGFR (BEAKER) (test 55 mL/min/1.73 sq In terpretation of eGFR values code = 1092) m Stage Descripti on Result G1 Normal or high >=90 G2 Mildly decreased 60-89 G3a Mildly to moderately 45-5 9 G3b Moderately to severely 30- 44 G4 Severly decreased 15-29 G5 Kidney failure <15Repo rted eGFR is based on the CK D-EPI 2020 equation that d oes not use a race coefficien tEstimated GFR is not as accurate as Creatinine Clearance in pr edicting glomerular filt ration rate. Estimated GFR i s not applicable for dialysis jo watkins Recreation Programmer ID - PhoodeezHEPATIC FUNCTION [id number] 11:27:10 Test Item Value Reference Range Interpretation Comments TOTAL PROTEIN (BEAKER) (test code = 7.1 gm/dL 6.0-8.3 770) ALBUMIN (BEAKER) (test code = 1145) 2.7 g/dL 3.5-5.0 L BILIRUBIN TOTAL (BEAKER) (test code 1.8 mg/dL 0.2-1.2 H = 377) BILIRUBIN DIRECT (BEAKER) (test 0.7 mg/dL 0.1-0.5 H code = 706) ALKALINE PHOSPHATASE (BEAKER) (test 202 U/L 40-150 H code = 346) AST (SGOT) (BEAKER) (test code = 34 U/L 5-34 353) ALT (SGPT) (BEAKER) (test code = 15 U/L 6-55 347) Recreation Programmer ID - MITCHCBC W/PLT COUNT & AUTO [id number] 10:56:41 Test Item Value Reference Range Interpretation Comments WHITE BLOOD CELL COUNT (BEAKER) 7.3 K/ L 3.5-10.5 (test code = 775) RED BLOOD CELL COUNT (BEAKER) 3.33 M/ L 3.93-5.22 L (test code = 761) HEMOGLOBIN (BEAKER) (test code = 9.3 GM/DL 11.2-15.7 L 410) HEMATOCRIT (BEAKER) (test code = 31.7 % 34.1-44.9 L 411) MEAN CORPUSCULAR VOLUME (BEAKER) 95 fL 79-95 (test code = 753) MEAN CORPUSCULAR HEMOGLOBIN 27.9 pg 25.6-32.2 (BEAKER) (test code = 751) MEAN CORPUSCULAR HEMOGLOBIN CONC 29.3 GM/DL 32.2-35.5 L (BEAKER) (test code = 752) RED CELL DISTRIBUTION WIDTH 17.8 % 11.7-14.4 H (BEAKER) (test code = 412) PLATELET COUNT (BEAKER) (test code 80 K/CU MM 150-450 L = 756) MEAN PLATELET VOLUME (BEAKER) 10.0 fL 9.4-12.3 (test code = 754) NUCLEATED [...] (test code = 437) NEUTROPHILS ABSOLUTE COUNT 6.00 K/ L 1.56-6.13 (BEAKER) (test code = 670) LYMPHOCYTES ABSOLUTE COUNT 0.67 K/ L 1.18-3.74 L (BEAKER) (test code = 414) MONOCYTES ABSOLUTE COUNT (BEAKER) 0.47 K/ L 0.24-0.36 H (test code = 415) EOSINOPHILS ABSOLUTE COUNT 0.06 K/ L 0.04-0.36 (BEAKER) (test code = 416) BASOPHILS ABSOLUTE COUNT (BEAKER) 0.04 K/ L 0.01-0.08 (test code = 417) IMMATURE GRANULOCYTES-RELATIVE 0.50 % 0.00-1.00 PERCENT (BEAKER) (test code = 2801) MR, ABDOMEN, [id number] 13:43:00DR JAMES Referring: Dr. Eric Neal Unlisted Reason for Exam - Click Yes and Enter Reason Below->Yes Unlisted Reason for Exam->Cirrhosis, pancreatic cysts [facility] 1950 Sex: FFINAL REPORT MRI of the abdomen with and without contrast Clinical History: Unlisted Reason for ExamCirrhosis, pancreatic cysts Technique: Multiplanar and multisequence MR images of the abdomen are obtained before and after intravenous contrast administration. Contrast is administered to evaluate neoplasm and vasculature. Comparison: October 15, 2021, February 06, 2021 Discussion:There is septal thickening/fibrosis at the lung bases. Liver is cirrhotic. There is a large recanalized periumbilical vein. No biliary ductal dilatation. Gallbladder is absent. No suspicious liver massis identified. The main portal vein measures 16 mm in diameter. 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 There are multiple simple appearing cystic foci withinthe pancreas, the largest lesion measures up to 17 mm. No enhancing septation, or nodule component is identified. The main duct is not enlarged, and there is no peripancreatic fluid. Adrenal glands arenormal. Kidneys demonstrate no mass, or hydronephrosis. Trace perihepatic ascites. Visualized bowel is unremarkable. No suspicious bony lesion. Impression: Cirrhosis and splenomegaly. Trace ascites. Nosuspicious liver mass is identified. 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 No worrisome imagingfeatures are identified on the current exam, they are amenable to continued follow-up. Signed: Patricia Elizabeth Verified Date/Time: 04/24/2022 13:43:29 PROTHROMBIN [id number] 12:16:16 Test Item Value Reference Range Interpretation Comments PROTIME (BEAKER) 14.9 seconds 11.9-14.2 H (test code = 759) INR (BEAKER) (test 1.19 See_Comment [Automat ed message] code = 370) The system [employer] generated this result transmitted ref erence range: <=5.90. The reference range was not used to int erpret this result as normal/abnormal . RECOMMENDED COUMADIN/WARFARIN INR THERAPY RANGESSTANDARD DOSE: 2.0 - 3.0 Includes: PROPHYLAXIS for venous thrombosis, systemic embolization; TREATMENT for venous thrombosis and/or pulmonary embolus.HIGH RISK: Target INR is 2.5-3.5 for patients with mechanical heart valves.ALPHA FETOPROTEIN (AFP), TUMOR MARKER 2022-03-29 12:06:55 Test Item Value Reference Range Interpretation Comments ALPHA-FETOPROTEIN (BEAKER) (test 2.3 ng/mL <10.0 code = 1094) Recreation Programmer ID - ALIZA MBASIC METABOLIC [id number] 11:53:48 Test Item Value Reference Range Interpretation Comments SODIUM (BEAKER) 140 meq/L 136-145 (test code = 381) POTASSIUM (BEAKER) 4.2 meq/L 3.5-5.1 (test code = 379) CHLORIDE (BEAKER) 99 meq/L 98-107 (test code = 382) CO2 (BEAKER) (test 33 meq/L 22-29 H code = 355) BLOOD UREA NITROGEN 14 mg/dL 7-21 (BEAKER) (test code = 354) CREATININE (BEAKER) 1.02 mg/dL 0.57-1.25 (test code = 358) GLUCOSE RANDOM 131 mg/dL 70-105 H (BEAKER) (test code = 652) CALCIUM (BEAKER) 9.1 mg/dL 8.4-10.2 (test code = 697) EGFR (BEAKER) (test 53 mL/min/1.73 ESTIMA JACQUELYN GFR IS code = 1092) sq m NOT ACCURATE CREATININE CLEARANCE IN PREDICTING GLOMERULAR FILTRATION RATE . ESTIMATED GFR I S NOT APPLICABLE FOR DIALYSIS PATIEN TS. Recreation Programmer ID - ALIZA MSpecimen slightly ictericHEPATIC FUNCTION [id number] 11:53:48 Test Item Value Reference Range Interpretation Comments TOTAL PROTEIN (BEAKER) (test code = 7.7 gm/dL 6.0-8.3 770) ALBUMIN (BEAKER) (test code = 1145) 3.0 g/dL 3.5-5.0 L BILIRUBIN TOTAL (BEAKER) (test code 1.6 mg/dL 0.2-1.2 H = 377) BILIRUBIN DIRECT (BEAKER) (test 0.7 mg/dL 0.1-0.5 H code = 706) ALKALINE PHOSPHATASE (BEAKER) (test 219 U/L 40-150 H code = 346) AST (SGOT) (BEAKER) (test code = 29 U/L 5-34 353) ALT (SGPT) (BEAKER) (test code = 16 U/L 6-55 347) Recreation Programmer ID - ALIZA MSpecimen slightly ictericCBC W/PLT COUNT & AUTO [id number] 11:32:39 Test Item Value Reference Range Interpretation Comments WHITE BLOOD CELL COUNT (BEAKER) 5.6 K/ L 3.5-10.5 (test code = 775) RED BLOOD CELL COUNT (BEAKER) 3.79 M/ L 3.93-5.22 L (test code = 761) HEMOGLOBIN (BEAKER) (test code = 10.7 GM/DL 11.2-15.7 L 410) HEMATOCRIT (BEAKER) (test code = 36.4 % 34.1-44.9 411) MEAN CORPUSCULAR VOLUME (BEAKER) 96.0 fL 79.4-94.8 H (test code = 753) MEAN CORPUSCULAR HEMOGLOBIN 28.2 pg 25.6-32.2 (BEAKER) (test code = 751) MEAN CORPUSCULAR HEMOGLOBIN CONC 29.4 GM/DL 32.2-35.5 L (BEAKER) (test code = 752) RED CELL DISTRIBUTION WIDTH 16.6 % 11.7-14.4 H (BEAKER) (test code = 412) PLATELET COUNT (BEAKER) (test code 79 K/CU MM 150-450 L = 756) MEAN PLATELET VOLUME (BEAKER) 10.5 fL 9.4-12.3 (test code = 754) NUCLEATED RED BLOOD CELLS (BEAKER) 0 /100 WBC 0-0 (test code = 413) NEUTROPHILS RELATIVE PERCENT 76 % (BEAKER) (test code = 429) LYMPHOCYTES RELATIVE PERCENT 14 % (BEAKER) (test code = 430) MONOCYTES RELATIVE PERCENT 8 % (BEAKER) (test code = 431) EOSINOPHILS RELATIVE PERCENT 1 % (BEAKER) (test code = 432) BASOPHILS RELATIVE PERCENT 1 % (BEAKER) (test code = 437) NEUTROPHILS ABSOLUTE COUNT 4.26 K/ L 1.56-6.13 (BEAKER) (test code = 670) LYMPHOCYTES ABSOLUTE COUNT 0.76 K/ L 1.18-3.74 L (BEAKER) (test code = 414) MONOCYTES ABSOLUTE COUNT (BEAKER) 0.44 K/ L 0.24-0.36 H (test code = 415) EOSINOPHILS ABSOLUTE COUNT 0.08 K/ L 0.04-0.36 (BEAKER) (test code = 416) BASOPHILS ABSOLUTE COUNT (BEAKER) 0.04 K/ L 0.01-0.08 (test code = 417) IMMATURE GRANULOCYTES-RELATIVE 0 % 0-1 PERCENT (BEAKER) (test code = 2801) Tissue [id number] 19:02:37 Test Item Value Reference Range Interpretation Comments Case Report (test code Surgical Pathology = 104) Report Case: [id number] Authorizing Provider: Elvira James MD Collected: 11/23/2021 10:57 AM Ordering Location: [facility] Endoscopy Received: 11/23/2021 03:54 PM Services Pathologist: Clarissa Romo MD Specimen: Stomach, Antrum, random biopsies DIAGNOSIS (test code = [id number] 3220) FuZzEwMzNcZnRuYmpcdWMx IHtccnRmMVxlcGljOTYwMV cnacGwMULffADmO2Jxtjah BBchHK9iSF7rrGsboUXklG OiXUOoOoPkj7hij792uNWe o7boEYCPyeljxPe5yGtoX1 6mu5L0QjouZ89jnTTpZBB9 HTMlOPAfkCWzGGCdMOU8IR BjvVOvW5epDKAjAM4ohdyr ZFnmKFwgLVJodNO3IOLcqJ EcT6LcJPFcXGggSEQtukc9 FfHvEp8jgRDqkKdjPAegZM IbWNIkNTwhBILbHtBjL1IG NULULGsmCH1PHaEPEEMIUU 2DF5j5QKOjewOfNQBgCGLC WBZBHKLQHQqVU2UTE5DWDK nOGNIvlyNxCTJtXI1ARTqJ HLzPU9CTR3JJKgEYKQcAQz ftANdXVx3GPdmCTaqGCYON REVOVElGSUVEIEJZIFJPVV OZOkVlJ8SZHB8zqRTdWXAa rlVNBo0blTspPBR0i8iamC YxXHNzdGUxODAwMFxhbnNp MLKdJbtpxawfBRVeNGP3uj CiUYJzRIkqFSBcREqsTj9d nLKjzAtwFnVkSHHfv7nrgs VFneqznPq1n3tzIHVzKpY8 bFViQHrwJ3empoDgkBGxSK KlMTk8xZ47HQNtcT4jpQHd LLovtqMkFqB0MIdpFBPcOd K4GOKycFAiNJSpA4hjYWUz BXrlSVOnHBgruWHxTEW1jU llu8Q0nZEjbSMnpBtoQdLn FnCqYvECk1CiWFl4gRoqM5 UyIDStLdW9vTKkHOJwYSzj RGXsZXAtumJ6bW40ERqflv T5sMSof0Kzl75uf344oL6o pMIxELD6SSHoVJPnhXBdEE TkVSR1YUYfzSGoI5nkVQCk HO2akcpvYQacSKuuYOFeyJ B7KOKuwTJsE0SwMWNuPNhx RRGzgsw1PhYkNg6xzBTquX fnCOmqi6pra1aesRIaRsi1 CFLsRvOmUrstRBxjd1Lif0 cyQMUkku0zZWQ6dBXxfQrg q8U8bUGaORYcmSRjMFIhLU 9ohYTlILGbfD1oegsyAQBw YnJkcmhlYWRccGdicmRyZm 8xdSymOTK5GXrhU7tirB6d JxV3OJwpI4oaeZ5tIZk7GE auSJPucKD8keI5ZCEbkTHk B9QoyN8pRZVmAH3ldei9l5 hqYLZ4CUllEPDeZqG1tvY6 NDBcaGVhZGVyeTcyMFxmb2 75LYD2FbOjLLChf0JpQ6Nw bKqtA29gjWlwP98mVNKwfZ jcnC8lwIznlR2dCgRsIzIj JAwnqPxuJA6iULCeR2nerQ LxAVXoHXBgU4neNgKyeJ0h xJbiMRmlsfTrCHFvNsj6EF YolOFzGDSdVfb8IGQoDTHs E38gnszcDLM5rW5na2ipr0 BlCOaqCRY5OWUlb07sPDgt jhW0GRmnSx25KGtgDFX1Wj cuUSN9rJ== CPT Code(s) (test code r3fnvUDzWDNbzUX8DgPeUJ = 3357) Ksu5ogx3OeoAKrhCOsCPcc tHGeegItjo92hCK5mA32TS 7oUGNzAmH7GRWkezF2Jtv7 JJYuZDMovCXtA156z5yrv5 nlvxXgoTW0cQjhDEStefow ObY0DTvuVNYceutzIBc5WE shCYXzsUJ8SLXcrFDiO5Nm WGToDX0aspk2UJT7VTygLO IlXvR6GHYqoTHqVLMoxBrc ZXjxd258ZDA9YiJaIZBxeo YuiKonoW6pFwSpVYH5DGWg NVxwYXJ9 CLINICAL HISTORY (test c6awpDImQQJawTY8NpQhHH code = 3356) Yhp9lio1RdrAGkcURgLBbw mCVpygAepv98tSK9nH26WI 6aQNQeOfT4ZQGnlbC3Mfx0 XCKhDFHlwIBmA346s6osx3 aqfcVbyVC3THObJDYnA0An SQ2kCREhtCLgS73zmFMrWE C8CPRoJNAvoOErUBTfVWF1 NIMyfOGhN9lzWELiZU1lcy tkLNdiBZpjUPAcwMW1BRXt wGHiW8AfKLQwQQclGCZbgn o2OySsIz9fkBRfcQjsHLpc YXJkXGxpMVxyaTFcbGluMV xwbGFpblxmczIwXGNmMSBF z33tnONlPIUeKKVmwekuVR Mza5u0gN69bASsfSZvZPce L8vcAKI6 SPECIMEN SOURCE (test u6bjgDEcGSZfxRY1GpMpJW code = 3377) Zoh6tcw6MavRAewEYcNAqv pHSsaeOygd71uEW8zC01LT 9uXFKxNaU9WZAfvbN0Pua1 ZFDpYFFtrTDbA675r2otr8 cyspTssJZ3iYpgSDKbijqf IbW0QLotTIHhxyroKKv3WP vjSRCycRC8SDMjwITkI9Bb PXQuIY9kjfy2MPW1MQjtTN MuCfM3JIEeuFUoIOUicYln NSzcg944KQZ4BrMbGZRfke ZysTvpvG4uMsCqJXXZaM9e EPDmPIRhynGgvO3qvKXmeG == GROSS DESCRIPTION (test g6olgWZaKCKjfQQbEsOgTX code = 3366) TyKSUmn4zeAVErpQKbHoXz MzNcZnRuYmpcdWMxXGRlZm Igc1czr540nHZhk0djEUMi NmR5pADaTUXfaAIeU085v8 pdu6axcxTmrFW4LOEbPEL8 JPllcgVprjV7LOtbuBYrHb B7XSheewYvLXunkzBqtqMi Lfk9KVXzD881DPI3rQjwv5 xiYMD8RCFuZWXtRwYyIq3j gCXsF442ASFuUJECKTIztS g9SSDhbuMijbHrzOYVh120 K145m0zxBTJlkmLakGjSxx odp3vlU304CGNscBDbajPr NpCeBQKchXYbhPA3YJYiWV 4zynmeNvOgJU8kgijrFtMi RO9zhca2RlVoUG8wgvgcYw SySHvsWVSlyslpAFNfw4Dv fjveQO5iB5Eyu2K1mR3wtA HxIMUiiLIqTePcLIUrdm5s kXJjQItcu5TjBFB9viO5yK AnzOMfKLYqXV24Rdwwg3Ub OfsdRUL5XZYgymEnq5Maj1 mhOiLacpPeF0cuV2ZaVOZw GWMePFDyVhHbhyXjg8Wvm1 RmwLPitIh7a8vcIYFpCIYb fJday4unCXQ6JKLrF5L4wO Pgm9zmCLgeXDLrmPB1ynvv DUvkENNyoaD8jpwrLMmuSR UwyNX6pxwlMSocBPFlAfZ4 ffvaXExrJWNaJXU7XVhlj4 35HYW1JUfxTbchAShhFCFf bmNvbnRccGduZGVjXHBsYW luXHBsYWluXGYwXGZzMjRc nZhuvQuazE2eYoNzRkFeXD wmOM2xVZAtW8adtHTpMBQm NNLqU0tcCrZkrK6hpVujRG xcsnCbWQDoI6IoosQqCKlw CDBlzc4zrTgwJTgjWvNbFD QgdGhlIHBhdGllbnQncyBu AF7dVGFgW5Xqg6Wif20mmx ZqBbEbXEJyHCRif7OlqACw mEmiRE16ryKmFnPgvfAkMN A9CN4zn78jyBD8bLLloOEy IgBtL68cpoRjYA4aFSI4ox ayLvT0qXF5glGxDuApQ09q wH3kB0YoUFLal5TwHDxsMH 3fwD4pJOleoDQaXNCnTYFl yRo7UUQwHBBprbJce5XnuI r0bVUbIPhrAGGxbR7itG4c QTEuXHBhclxwYXIgUGlsYX IgQXJndWVsbGVzLCBQQSwg XBHuHFWPT5SzRODhfz5= MICROSCOPIC DESCRIPTION d0fsuONvQTFhkBI4XsZyLO (test code = 3371) Egq4ouz7OetMBcoJVaXMew kATobzFbnl94uCX7yN97IT 1kNYWaGwX6QLJisoE9Xqo1 TTEvTHXpuRFzY511m8fip7 xxcuXbsWL6eYneQWBgwkgw XgN7HLjmGFCrolkwDVz5KV jkIVMucSG0RYVmvPPgS2Lr JWAbDM9prfw5HGF5SVjxYQ XdXqQ6XBNctIJhOEKjuBrx RPjhq227IEJ9VjEkKSJdga ImyIutvS0wDeTzUQRHWGAw n7DaTRIvOZCtdq9= [facility] [id number] 19:02:37Surgical Pathology Report Case: [id number] Authorizing Provider: Elvira James MD Collected: 11/23/2021 10:57 AM Ordering Location: [facility] Endoscopy Received: 11/23/2021 03:54 PM Services Pathologist: Clarissa Romo MD Specimen: Stomach, Antrum, random biopsies STOMACH, ANTRUM, BIOPSY: - REACTIVE GASTROPATHY - NO HELICOBACTER PYLORI MICROORGANISM IDENTIFIED BY ROUTINE STAINCC/pl Signing Pathologist Direct Phone Line: [phone] signed by Clarissa Romo MD on 11/25/2021 at 7:02 [id number] varices without bleedingStomach, antrumReceived in formalin labeled the patient's name, accession number and "stomach, antrum" are 4 eng soft tissue fragments measuring up to 0.3 cm in greatest dimension which are filtered and submitted in toto in A1.JO Dumont, HT ([facility])Performed MR, ABDOMEN, [id number] 12:08:00DR JAMES Referring: Dr. Eric Neal Review PVT, cirrhosis, hcc screening Unlisted Reason for Exam - Click Yes and Enter Reason Below->No Anesthesia:->None Deos the patient have an implanted electronic device?->No [facility] : 1950 Sex: FFINAL REPORT TECHNIQUE: MRI of the abdomen WITHOUT and WITH intravenous contrast. INDICATION: Unlisted Reason for Exam. Review portal vein thrombosis, cirrhosis, HCC screening COMPARISON: MRI from 02/06/2021. FINDINGS: LOWER THORAX: The increased interstitial T2 weighted signal inthe lungs is concerning for fibrosis. LIVER: Nodular, cirrhotic liver. No focal hepatic lesions. BILIARY: Gallbladder is unremarkable. No biliary ductal dilatation or filling defect.SPLEEN: 14.3 cm splenomegaly. Findings of prior splenic infarcts.PANCREAS: No focal masses or ductal dilatation. A cystic lesion in the pancreatic body measures 1.8 cm on coronal T2-weighted image 10, previously 1.5 cm. Acystic lesion in the pancreatic body on axial T2-weighted image 9 measures 0.7 x 1.2 cm, previously 0.9 x 1.8 cm. Otherwise, cystic lesions in the pancreas are essentially unchanged. ADRENALS: No adrenal nodules.KIDNEYS/URETERS: No hydronephrosis or solid mass lesions. PERITONEUM/RETROPERITONEUM: Trace perihepatic ascites.LYMPH NODES: No lymphadenopathy.VESSELS: The right hepatic artery is replaced from [...] SOFT TISSUES: Unremarkable. IMPRESSION: 1.No suspicious focal hepaticlesion. 2.The portal vein thrombus has resolved. 3.Cirrhosis with sequelae of portal hypertension including splenomegaly and small esophageal varices. 4.There are several cystic lesions in the pancreaswhich are most likely side branch intraductal papillary [...] fibrosis of the lungs. Signed: Tonya Cadena MDRisaakort Verified Date/Time: 10/20/2021 12:08:05 Reading Location: [facility] Diagnostic Imaging Reading Room - [place] [address] Electro nically signed by: TONYA CADENA MD on 10/20/2021 12:08 PMALPHA FETOPROTEIN (AFP), TUMOR [id number] 11:34:32 Test Item Value Reference Range Interpretation Comments ALPHA-FETOPROTEIN (BEAKER) (test 3.0 ng/mL <10.0 code = 1094) Recreation Programmer ID - ALIZA MBASIC METABOLIC [id number] 11:21:11 Test Item Value Reference Range Interpretation [...] S NOT APPLICABLE FOR DIALYSIS PATIEN TS. Recreation Programmer ID - ALIZA Alfaroecimen slightly ictericHEPATIC FUNCTION [id number] 11:21:11 Test Item Value Reference Range Interpretation [...] (test code = 14 U/L 6-55 347) Recreation Programmer ID - ALIZA Alfaroecimen slightly ictericPROTHROMBIN TIME/[id number] 11:06:41 Test Item Value Reference Range Interpretation Comments PROTIME (BEAKER) 15.8 seconds 11.9-14.2 H (test code = 759) INR (BEAKER) (test 1.28 See_Comment [Automat ed message] code = 370) The system [employer] generated this result transmitted ref erence range: <=5.90. The reference range was not used to int erpret this result as normal/abnormal . RECOMMENDED COUMADIN/WARFARIN INR THERAPY RANGESSTANDARD DOSE: 2.0 - 3.0 Includes: PROPHYLAXIS for venous thrombosis, systemic embolization; TREATMENT for venous thrombosis and/or pulmonary embolus.HIGH RISK: Target INR is 2.5-3.5 for patients with mechanical heart valves.CBC W/PLT COUNT & AUTO [id number] 10:58:04 Test Item Value Reference Range Interpretation [...] = 2801) RAD, CHEST, 1 VIEW, NON [id number] 21:17:00DR GOLDYeferring: Dr. Eric Morel for exam:->[facility] : 1950 Sex: FFINAL REPORT INDICATION: WHEEZING COMPARISON: 12/10/2020 TECHNIQUE: Single frontal view of the chest. IMPRESSION: Lungs and pleura: Hazy bilateral interstitial opacities similar toprior compatible with interstitial lung disease. No superimposed consolidation. Trace bilateral pleural effusions.Heart and mediastinum: Normal heart size. Unremarkable mediastinal contours.Osseous structures: No acute abnormality.Other: None. Signed: Jersey Galicia MDReport Verified Date/Time: 03/17/2021 21:17:55 HIGH SENSITIVITY TROPONIN [id number] 20:30:00 Test Item Value Reference Range Interpretation Comments HIGH SENSITIVITY 10 pg/ml See_Comment [Automated message] TROPONIN I (test code = The system which 0550189) generated this result transmitted ref erence range: <=17. Th e reference range was not used to int erpret this result as normal/abnormal . Recreation Programmer ID - BSThe WOMEN'S STUDIES LECTURER STAT High Sensitivity Troponin-I results should be used in conjunctionwith other diagnostic information such as ECG, clinical observations and information, and patient symptoms to aid in the diagnosis of DC.[id number] 20:26:00 Test Item Value Reference Range Interpretation Comments MAGNESIUM (BEAKER) (test code = 1.9 mg/dL 1.6-2.6 627) Recreation Programmer ID - BSBASIC METABOLIC [id number] 20:26:00 Test Item Value Reference Range Interpretation [...] 697) EGFR (BEAKER) (test 51 mL/min/1.73 ESTIMA JACQUELYN GFR IS code = 1092) sq m NOT ACCURATE CREATININE CLEARANCE IN PREDICTING GLOMERULAR FILTRATION RATE . ESTIMATED GFR I S NOT APPLICABLE FOR DIALYSIS PATIEN TS. Recreation Programmer ID - BSSpecimen slightly ictericCBC W/PLT COUNT [...] (BEAKER) (test code = 2801) COMPREHENSIVE METABOLIC [id number] 06:35:00 Test Item Value Reference Range Interpretation [...] S NOT APPLICABLE FOR DIALYSIS PATIEN TS. Recreation Programmer ID - ALIZA [id number] 06:35:00 Test Item Value Reference Range Interpretation Comments MAGNESIUM (BEAKER) (test code = 2.0 mg/dL 1.6-2.6 627) Recreation Programmer ID - ALIZA MPROTHROMBIN TIME/[id number] 06:12:00 Test Item Value Reference Range Interpretation Comments PROTIME (BEAKER) 18.1 seconds 11.9-14.2 H (test code = 759) INR (BEAKER) (test 1.56 See_Comment [Automat ed message] code = 370) The system [employer] generated this result transmitted ref erence range: <=5.90. The reference range was not used to int erpret this result as normal/abnormal . RECOMMENDED COUMADIN/WARFARIN INR THERAPY RANGESSTANDARD DOSE: 2.0 - 3.0 Includes: PROPHYLAXIS for venous thrombosis, systemic embolization; TREATMENT for venous thrombosis and/or pulmonary embolus.HIGH RISK: Target INR is 2.5-3.5 for patients with mechanical heart valves.CBC W/PLT COUNT & AUTO [id number] 06:06:00 Test Item Value Reference Range Interpretation [...] PERCENT (BEAKER) (test code = 2801) PROTHROMBIN TIME/[id number] 04:57:00 Test Item Value Reference Range Interpretation Comments PROTIME (BEAKER) 19.0 seconds 11.9-14.2 H (test code = 759) INR (BEAKER) (test 1.64 See_Comment [Automat ed message] code = 370) The system [employer] generated this result transmitted ref erence range: <=5.90. The reference range was not used to int erpret this result as normal/abnormal . RECOMMENDED COUMADIN/WARFARIN INR THERAPY RANGESSTANDARD DOSE: 2.0 - 3.0 Includes: PROPHYLAXIS for venous thrombosis, systemic embolization; TREATMENT for venous thrombosis and/or pulmonary embolus.HIGH RISK: Target INR is 2.5-3.5 for patients with mechanical heart valves.COMPREHENSIVE METABOLIC PANEL 2021-03-09 04:51:00 Test Item Value Reference Range Interpretation [...] 347) EGFR (BEAKER) (test 48 mL/min/1.73 ESTIMA JACQUELYN GFR IS code = 1092) sq m NOT ACCURATE CREATININE CLEARANCE IN PREDICTING GLOMERULAR FILTRATION RATE . ESTIMATED GFR I S NOT APPLICABLE FOR DIALYSIS PATIAGA TS. Recreation Programmer ID - ALIZA [id number] 04:51:00 Test Item Value Reference Range Interpretation Comments MAGNESIUM (BEAKER) (test code = 2.2 mg/dL 1.6-2.6 627) Recreation Programmer WENDY ABRAMS MCBC W/PLT COUNT & AUTO [id number] 04:32:00 Test Item Value Reference Range Interpretation [...] (BEAKER) (test code = 2801) COMPREHENSIVE METABOLIC [id number] 04:29:00 Test Item Value Reference Range Interpretation [...] 347) EGFR (BEAKER) (test 50 mL/min/1.73 ESTIMA JACQUELYN GFR IS code = 1092) sq m NOT ACCURATE CREATININE CLEARANCE IN PREDICTING GLOMERULAR FILTRATION RATE . ESTIMATED GFR I S NOT APPLICABLE FOR DIALYSIS PATIEN TS. Recreation Programmer ID - [id number] 04:29:00 Test Item Value Reference Range Interpretation Comments MAGNESIUM (BEAKER) (test code = 2.1 mg/dL 1.6-2.6 627) Recreation Programmer ID - ADMINCBC W/PLT COUNT & AUTO [id number] 04:04:00 Test Item Value Reference Range Interpretation [...] (BEAKER) (test code = 2801) COMPREHENSIVE METABOLIC [id number] 06:26:00 Test Item Value Reference Range Interpretation [...] 347) EGFR (BEAKER) (test 54 mL/min/1.73 ESTIMA JACQUELYN GFR IS code = 1092) sq m NOT ACCURATE CREATININE CLEARANCE IN PREDICTING GLOMERULAR FILTRATION RATE . ESTIMATED GFR I S NOT APPLICABLE FOR DIALYSIS PATIEN TS. Recreation Programmer ID - ALIZA [id number] 06:26:00 Test Item Value Reference Range Interpretation Comments MAGNESIUM (BEAKER) (test code = 2.1 mg/dL 1.6-2.6 627) Recreation Programmer ID - ALIZA MCBC W/PLT COUNT & AUTO [id number] 05:06:00 Test Item Value Reference Range Interpretation [...] 0-1 PERCENT (BEAKER) (test code = 2801) [id number] 07:39:00 Test Item Value Reference Range Interpretation Comments MAGNESIUM (BEAKER) 2.0 mg/dL 1.6-2.6 Specimen moderately (test code = 627) hemolyzed Recreation Programmer ID - EDASICOMPREHENSIVE METABOLIC [id number] 07:39:00 Test Item Value Reference Range Interpretation [...] hemolyzed EGFR (BEAKER) (test 58 mL/min/1.73 ESTIMA JACQUELYN GFR IS code = 1092) sq m NOT ACCURATE CREATININE CLEARANCE IN PREDICTING GLOMERULAR FILTRATION RATE . ESTIMATED GFR I S NOT APPLICABLE FOR DIALYSIS PATIEN TS. Recreation Programmer ID - EDASICBC W/PLT COUNT & AUTO [id number] 07:16:00 Test Item Value Reference Range Interpretation [...] PERCENT (BEAKER) (test code = 2801) PROTHROMBIN TIME/[id number] 07:08:00 Test Item Value Reference Range Interpretation Comments PROTIME (BEAKER) 20.0 seconds 11.9-14.2 H (test code = 759) INR (BEAKER) (test 1.75 See_Comment [Automat ed message] code = 370) The system [employer] generated this result transmitted ref erence range: <=5.90. The reference range was not used to int erpret this result as normal/abnormal . RECOMMENDED COUMADIN/WARFARIN INR THERAPY RANGESSTANDARD DOSE: 2.0 - 3.0 Includes: PROPHYLAXIS for venous thrombosis, systemic embolization; TREATMENT for venous thrombosis and/or pulmonary embolus.HIGH RISK: Target INR is 2.5-3.5 for patients with mechanical heart valves.BODY FLUID CULTURE + GRAM STAIN 2021-03-05 14:00:00 Test Item Value Reference Range Interpretation Comments CULTURE (BEAKER) (test code No growth = 1095) GRAM STAIN RESULT (BEAKER) 2+ WBCs (test code = 1123) GRAM STAIN RESULT (BEAKER) No organisms seen (test code = 536988) URINALYSIS W/ [id number] 09:34:00 Test Item Value Reference Range Interpretation [...] = 516) SOURCE(BEAKER) (test code = 2795) Recreation Programmer ID - [auto]Recreation Programmer ID - techPROTEIN, RANDOM [id number] 09:05:00 Test Item Value Reference Range Interpretation Comments PROTEIN, URINE (BEAKER) (test code = < mg/dL 0-14 1569) Recreation Programmer ID - AAHAMIDCREATININE, RANDOM [id number] 08:44:00 Test Item Value Reference Range Interpretation [...] 347) EGFR (BEAKER) (test 48 mL/min/1.73 ESTIMA JACQUELYN GFR IS code = 1092) sq m NOT ACCURATE CREATININE CLEARANCE IN PREDICTING GLOMERULAR FILTRATION RATE . ESTIMATED GFR I S NOT APPLICABLE FOR DIALYSIS PATIEN TS. Recreation Programmer ID - ALIZA [id number] 05:59:00 Test Item Value Reference Range Interpretation Comments MAGNESIUM (BEAKER) (test code = 1.8 mg/dL 1.6-2.6 627) Recreation Programmer ID - ALIZA [id number] 05:59:00 Test Item Value Reference Range Interpretation Comments PHOSPHORUS (BEAKER) (test code = 2.5 mg/dL 2.3-4.7 604) Recreation Programmer ID - ALIZA MB-TYPE NATRIURETIC FACTOR (BNP)2021-03-05 04:42:00 Test Item Value Reference Range Interpretation Comments B-TYPE NATRIURETIC PEPTIDE (BEAKER) 114 pg/mL 0-100 H (test code = 700) Recreation Programmer ID - MURALI LSARS-COV2/RT-PCR ([facility])2021-03-03 19:44:00 Test Item Value Reference Range Interpretation Comments SARS-COV2/RT-PCR (test Negative Not Detected, Negative, code = 6765674) See external report for linked test SARS-COV-[address] [facility] DENITA (test code = 4090074) Negative result for this test determines that [...] justifying the authorization of the emergency use ofin vitro diagnostic tests for detection and/or diagnosis of COVID-19 is terminated under Section 564(b)(2) of the Act or the EUA is revoked under Section 564(g) of the Act.Testing was performed using the Cheema SARS-CoV-2 assay.Fact Sheet for Healthcare Providers:https://www.Skycheckin.cheema/derrick/RT_SAR W-KzH-6_JEE_Yeko_Eiesa_06-047819.pdfFact Sheet for Healthcare Patients:https://www.[employer]check[employer].cheema/s al/ZG_WVWF-HcZ-5_Sjjganb_Mdpo_Etgqu_QV_73-828564F4.pdfPerforming Laboratory:[facility] [place] [address] PROTEIN, BODY [id number] 10:21:00 Test Item Value Reference Range Interpretation Comments PROTEIN FLUID (BEAKER) (test code = 0.9 g/dL 579) Absence of reference range indicates that normals have not been defined.Assay performance has not been validated for this type of specimen.Recreation Programmer ID - [id number] DEHYDROGENASE (LDH), BODY [id number] 09:59:00 Test Item Value Reference Range Interpretation Comments LACTATE DEHYDROGENASE FLUID (BEAKER) 53 U/L (test code = 634) Absence of reference range indicates that normals have not been defined.Assay performance has not been validated for this type of specimen.Recreation Programmer ID - [id number] 04:33:00 Test Item Value Reference Range Interpretation Comments MAGNESIUM (BEAKER) 1.8 mg/dL 1.6-2.6 Specimen slightly (test code = 627) hemolyzed Recreation Programmer ID - ALIZA MBASIC METABOLIC [id number] 04:33:00 Test Item Value Reference Range Interpretation [...] 697) EGFR (BEAKER) (test 64 mL/min/1.73 ESTIMA JACQUELYN GFR IS code = 1092) sq m NOT ACCURATE CREATININE CLEARANCE IN PREDICTING GLOMERULAR FILTRATION RATE . ESTIMATED GFR I S NOT APPLICABLE FOR DIALYSIS PATIEN TS. Recreation Programmer ID - ALIZA MSpecimen slightly ictericHEPATIC FUNCTION [id number] 04:33:00 Test Item Value Reference Range Interpretation [...] Specimen slightly (test code = 347) hemolyzed Recreation Programmer ID - ALIZA Alfaroecimen slightly ictericPROTHROMBIN TIME/[id number] 04:26:00 Test Item Value Reference Range Interpretation Comments PROTIME (BEAKER) 17.4 seconds 11.9-14.2 H (test code = 759) INR (BEAKER) (test 1.47 See_Comment [Automat ed message] code = 370) The system [employer] generated this result transmitted ref erence range: <=5.90. The reference range was not used to int erpret this result as normal/abnormal . Effective 03/14/2019: PT Reference Range ChangeNew: 11.9-14.2 Previous: 11.7- 14.7RECOMMENDED COUMADIN/WARFARIN INR THERAPY RANGESSTANDARD DOSE: 2.0-3.0 Includes: PROPHYLAXIS for venous thrombosis, systemic embolization; TREATMENT for venous thrombosis and/or pulmonary embolus.HIGH RISK: Target INR is 2.5-3.5 for patients wiht mechanical heart valves.CBC W/PLT COUNT & AUTO [id number] 04:13:00 Test Item Value Reference Range Interpretation [...] code = 2801) URINALYSIS W/ REFLEX URINE [id number] 01:51:00 Test Item Value Reference Range Interpretation [...] = 1584) SOURCE(BEAKER) (test code = 2795) Recreation Programmer ID - [auto]Recreation Programmer ID - techB-TYPE NATRIURETIC FACTOR (BNP)2021-03-03 00:25:00 Test Item Value Reference Range Interpretation Comments B-TYPE NATRIURETIC PEPTIDE (BEAKER) 140 pg/mL 0-100 H (test code = 700) Recreation Programmer ID - DBBODY FLUID CELL COUNT WITH [id number] 19:42:00 Test Item Value Reference Range Interpretation [...] Tube (BEAKER) (test code = 2873) U/S, [id number] 18:21:00DR Wellserring: Dr. Eric Lindseyabs to be ordered:->Body Fluid Culture (w/Gram Stain, C\\T\\S)Labsto be ordered:- >Glucose+LDH+ProteinLabs to be ordered:->Cell CountReason for exam:- >[facility] : 1950 Sex: FFINAL REPORT Ultrasound guided paracentesis, 03/02/2021. Clinical History: Ascites. Sedation: None. Business Assistant: Tracie. Warrant Server: None. Estimated Blood Loss: < 1 cc. Specimen: 2000 cc of clear yellow fluid, samples sent to laboratory. Technique: Informed consent was obtained. The risks of pain, bleeding, infection, bowel perforation, injury to adjacent structures, and adverse medication reactions were discussed with the patient. After informed consent was obtained, the patient's abdomen was scanned. The right lower quadrant of the abdomen was selected for paracentesis. After the largest fluid pocket area was marked, and the anterior abdominal wall was evaluated withcolor Doppler to exclude presence of blood vessels traversing the area, the skin was prepped and draped in the usual sterile manner. After local anesthesia was achieved with 1% lidocaine, a 5 Portuguese one-step catheter was advanced into the peritoneal cavity under ultrasound guidance. After completion of drainage, the catheter was removed. There was no evidence of complication. Patient Disposition: Thepatient was discharged from the ultrasound department after the paracentesis, in good condition. Impression:Successful ultrasound guided paracentesis. Signed: Jordon Martinez MDReport Verified Date/Time: 03/02/2021 18:21:14 Reading Location: [place] [address] Angio Body Reading Room BASIC METABOLIC PANEL 2021-03-02 15:12:00 Test Item Value Reference Range Interpretation [...] 697) EGFR (BEAKER) (test 55 mL/min/1.73 ESTIMA JACQUELYN GFR IS code = 1092) sq m NOT ACCURATE CREATININE CLEARANCE IN PREDICTING GLOMERULAR FILTRATION RATE . ESTIMATED GFR I S NOT APPLICABLE FOR DIALYSIS PATIEN TS. Recreation Programmer ID - DBSpecimen slightly ictericHEPATIC FUNCTION [id number] 15:12:00 Test Item Value Reference Range Interpretation [...] (test code = 13 U/L 6-55 347) Recreation Programmer ID - DBSpecdelphinen judy [id number] 15:08:00 Test Item Value Reference Range Interpretation Comments PARTIAL THROMBOPLASTIN TIME 36.1 seconds 22.5-36.0 H (BEAKER) (test code = 760) PROTHROMBIN TIME/[id number] 15:07:00 Test Item Value Reference Range Interpretation Comments PROTIME (BEAKER) 17.3 seconds 11.9-14.2 H (test code = 759) INR (BEAKER) (test 1.46 See_Comment [Automat ed message] code = 370) The system [employer] generated this result transmitted ref erence range: <=5.90. The reference range was not used to int erpret this result as normal/abnormal . Effective 03/14/2019: PT Reference Range ChangeNew: 11.9-14.2 Previous: 11.7- 14.7RECOMMENDED COUMADIN/WARFARIN INR THERAPY RANGESSTANDARD DOSE: 2.0-3.0 Includes: PROPHYLAXIS for venous thrombosis, systemic embolization; TREATMENT for venous thrombosis and/or pulmonary embolus.HIGH RISK: Target INR is 2.5-3.5 for patients wiht mechanical heart valves.CBC W/PLT COUNT & AUTO [id number] 14:53:00 Test Item Value Reference Range Interpretation [...] (BEAKER) (test code = 2801) COMPREHENSIVE METABOLIC [id number] 14:28:00 Test Item Value Reference Range Interpretation [...] 347) EGFR (BEAKER) (test 50 mL/min/1.73 ESTIMA JACQUELYN GFR IS code = 1092) sq m NOT ACCURATE CREATININE CLEARANCE IN PREDICTING GLOMERULAR FILTRATION RATE . ESTIMATED GFR I S NOT APPLICABLE FOR DIALYSIS PATIEN TS. Recreation Programmer ID - EDASIPROTHROMBIN TIME/[id number] 14:14:00 Test Item Value Reference Range Interpretation Comments PROTIME (BEAKER) 17.1 seconds 11.9-14.2 H (test code = 759) INR (BEAKER) (test 1.43 See_Comment [Automat ed message] code = 370) The system [employer] generated this result transmitted ref erence range: <=5.90. The reference range was not used to int erpret this result as normal/abnormal . Effective 03/14/2019: PT Reference Range ChangeNew: 11.9-14.2 Previous: 11.7- 14.7RECOMMENDED COUMADIN/WARFARIN INR THERAPY RANGESSTANDARD DOSE: 2.0-3.0 Includes: PROPHYLAXIS for venous thrombosis, systemic embolization; TREATMENT for venous thrombosis and/or pulmonary embolus.HIGH RISK: Target INR is 2.5-3.5 for patients wiht mechanical heart valves.CBC W/PLT COUNT & AUTO [id number] 14:10:00 Test Item Value Reference Range Interpretation [...] (BEAKER) (test code = 2801) MR, ABDOMEN, [id number] 11:27:00DR JAMES Referring: Dr. Eric Neal LIVER PROTOCOL PLEASE FAX RESULTS TO OMI WALL NP AT [phone]. LIVER PROTOCOL PLEASE FAX RESULTS TO OMI WALL NP AT [phone]. [facility] : 1950 Sex: FFINAL REPORT TECHNIQUE: MRI of the abdomen WITHOUT and WITH intravenous contrast. INDICATION: 70-year-old woman with cirrhosis. COMPARISON: Abdomen MRI 11/26/2020. FINDINGS: LOWER THORAX: Bibasilar pulmonary opacities. LIVER: Cirrhotic morphology of the liver. No suspicious liver observation. BILIARY: Gallbladder is contracted. No biliary ductal dilatation or filling defect.SPLEEN : Spleen is prominent and measures 14.2 cm [...] x 0.7 cm. No ductal dilatation. ADRENALS: No adrenal nodule.KIDNEYS/URETERS: No hydronephrosis or mass. 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 Main portal vein is prominent and measures 1.7 cm in diameter. Recanalized umbilical vein. Small esophageal varices.GI TRACT: No distention or wall thickening. BONES [...] to 1.1 cm, are unchanged. Signed: Sheron Arandaeport Verified Date/Time: 02/09/2021 11:27:04 Reading Location: [facility] Diagnostic Imaging Reading Room - [place] [address] ALPHA FETOPROTEIN (AFP), TUMOR MARKER 2021-02-04 13:26:00 Test Item Value Reference Range Interpretation Comments ALPHA-FETOPROTEIN (BEAKER) (test 2.1 ng/mL <10.0 code = 1094) Recreation Programmer ID - MADAY FBASIC METABOLIC [id number] 13:09:00 Test Item Value Reference Range Interpretation [...] 697) EGFR (BEAKER) (test 54 mL/min/1.73 ESTIMA JACQUELYN GFR IS code = 1092) sq m NOT ACCURATE CREATININE CLEARANCE IN PREDICTING GLOMERULAR FILTRATION RATE . ESTIMATED GFR I S NOT APPLICABLE FOR DIALYSIS PATIEN TS. Recreation Programmer ID Shakir MADAY FSpecimen slightly ictericHEPATIC FUNCTION PANEL 2021-02-04 13:09:00 [...] (test code = 16 U/L 6-55 347) Recreation Programmer ID - MADAY FSpecimen slightly ictericPROTHROMBIN TIME/[id number] 13:03:00 Test Item Value Reference Range Interpretation Comments PROTIME (BEAKER) 17.1 seconds 11.9-14.2 H (test code = 759) INR (BEAKER) (test 1.43 See_Comment [Automat ed message] code = 370) The system [employer] generated this result transmitted ref erence range: <=5.90. The reference range was not used to int erpret this result as normal/abnormal . Effective 03/14/2019: PT Reference Range ChangeNew: 11.9-14.2 Previous: 11.7- 14.7RECOMMENDED COUMADIN/WARFARIN INR THERAPY RANGESSTANDARD DOSE: 2.0-3.0 Includes: PROPHYLAXIS for venous thrombosis, systemic embolization; TREATMENT for venous thrombosis and/or pulmonary embolus.HIGH RISK: Target INR is 2.5-3.5 for patients wiht mechanical heart valves.CBC W/PLT COUNT & AUTO [id number] 12:39:00 Test Item Value Reference Range Interpretation [...] PERCENT (BEAKER) (test code = 2801) BLOOD [id number] 00:00:00 Test Item Value Reference Range Interpretation Comments CULTURE (BEAKER) (test No growth in 5 days code = 1095) POCT-GLUCOSE [id number] 17:00:00 Test Item Value Reference Range Interpretation Comments POC-GLUCOSE METER 154 mg/dL 70-110 H : TESTED A T [facility] 6720 (BEAKER) (test code = EDI JETT [place], 1538) [address]: Recreation Programmer/Techni juan antonio ID = [id number] for OR COLEMAN EDMONDS POCT-GLUCOSE [id number] 11:33:00 Test Item Value Reference Range Interpretation Comments POC-GLUCOSE METER 126 mg/dL 70-110 H : TESTED A T [facility] 6720 (BEAKER) (test code = EDI Hines JET[place], 1538) [address]: Recreation Programmer/Techni juan antonio ID = [id number] for COLEMAN OQUENDO BLOOD [id number] 09:00:00 Test Item Value Reference Range Interpretation Comments CULTURE (BEAKER) (test No growth in 5 days code = 1095) POCT-GLUCOSE [id number] 08:14:00 Test Item Value Reference Range Interpretation Comments POC-GLUCOSE METER 97 mg/dL 70-110 : TESTED A T [facility] 6720 (BEAKER) (test code = EDI JETT [place], 1538) [address]: Recreation Programmer/Techni juan antonio ID = [id number] for COLEMAN KRAFT COMPREHENSIVE METABOLIC [id number] 05:20:00 Test Item Value Reference Range Interpretation [...] 347) EGFR (BEAKER) (test 55 mL/min/1.73 ESTIMA JACQUELYN GFR IS code = 1092) sq m NOT ACCURATE CREATININE CLEARANCE IN PREDICTING GLOMERULAR FILTRATION RATE . ESTIMATED GFR I S NOT APPLICABLE FOR DIALYSIS PATIEN TS. Recreation Programmer ID - ALIZA MSpecimen slightly ictericCBC W/PLT COUNT & AUTO [id number] 04:42:00 Test Item Value Reference Range Interpretation [...] 0-1 PERCENT (BEAKER) (test code = 2801) [id number] 04:34:00 Test Item Value Reference Range Interpretation Comments PARTIAL THROMBOPLASTIN TIME 41.4 seconds 22.5-36.0 H (BEAKER) (test code = 760) PROTHROMBIN TIME/[id number] 04:33:00 Test Item Value Reference Range Interpretation Comments PROTIME (BEAKER) 18.5 seconds 11.9-14.2 H (test code = 759) INR (BEAKER) (test 1.59 See_Comment [Automat ed message] code = 370) The system [employer] generated this result transmitted ref erence range: <=5.90. The reference range was not used to int erpret this result as normal/abnormal . Effective 03/14/2019: PT Reference Range ChangeNew: 11.9-14.2 Previous: 11.7- 14.7RECOMMENDED COUMADIN/WARFARIN INR THERAPY RANGESSTANDARD DOSE: 2.0-3.0 Includes: PROPHYLAXIS for venous thrombosis, systemic embolization; TREATMENT for venous thrombosis and/or pulmonary embolus.HIGH RISK: Target INR is 2.5-3.5 for patients wiht mechanical heart valves.POCT-GLUCOSE [id number] 20:49:00 Test Item Value Reference Range Interpretation Comments POC-GLUCOSE METER 182 mg/dL 70-110 H : TESTED A T [facility] 6720 (GliaCure) (test code = [facility], 1538) 85177: Recreation Programmer/Techni juan antonio ID = [id number] for SHELDON LOBATO REGGIE POCT-GLUCOSE [id number] 17:45:00 Test Item Value Reference Range Interpretation Comments POC-GLUCOSE METER 136 mg/dL 70-110 H : TESTED A T [facility] 6720 (GliaCure) (test code = [facility] [employer] [place], 1538) 13372: Recreation Programmer/Techni juan antonio ID = [id number] for Lu Mcrae POCT-GLUCOSE [id number] 11:31:00 Test Item Value Reference Range Interpretation Comments POC-GLUCOSE METER 142 mg/dL 70-110 H : TESTED A T [facility] 6720 (BEAKER) (test code = [facility] [place], 1538) 08868: Recreation Programmer/Techni juan antonio ID = [id number] for Lu Mcrae POCT-GLUCOSE [id number] 08:36:00 Test Item Value Reference Range Interpretation Comments POC-GLUCOSE METER 93 mg/dL 70-110 : TESTED A T [facility] 6720 (BEAKER) (test code = [facility], 1538) 66755: Recreation Programmer/Techni juan antonio ID = [id number] for ORLIN ROSASCHINO COMPREHENSIVE METABOLIC [id number] 06:31:00 Test Item Value Reference Range Interpretation [...] U/L 6-55 (test code = 347) EGFR (BECYNTHIA) (test 53 mL/min/1.73 ESTIMA JACQUELYN GFR IS code = 1092) sq m NOT ACCURATE CREATININE CLEARANCE IN PREDICTING GLOMERULAR FILTRATION RATE . ESTIMATED GFR I S NOT APPLICABLE FOR DIALYSIS PATIEN TS. Recreation Programmer ID - ALIZA MSpecimen slightly ictericU/S, RENAL, [id number] 06:29:00DR GOLDYeferring: Dr. Eric Morel for exam:->JOSE MANUEL left hydronephrosisMARTIN [facility] : 1950 Sex: FFINAL REPORT Ultrasound of the Kidneys Clinical History: JOSE MANUEL left hydronephrosis Comparison: Renal ultrasound 12/08/2020. Discussion: Sonographic evaluation of the kidneys was performed. The examination is limited due to excessive bowel gas. Right kidney: 11.2 x 5.6 x 5.9 cm, withcortical thickness of 1.3 cm. Normal cortical echogenicity. [...] Amy Villavicencio Verified Date/Time: 12/14/2020 06:29:34 PROTHROMBIN TIME/[id number] 06:09:00 Test Item Value Reference Range Interpretation Comments PROTIME (BEAKER) 19.3 seconds 11.9-14.2 H (test code = 759) INR (BEAKER) (test 1.67 See_Comment [Automat ed message] code = 370) The system [employer] generated this result transmitted ref erence range: <=5.90. The reference range was not used to int erpret this result as normal/abnormal . Effective 03/14/2019: PT Reference Range ChangeNew: 11.9-14.2 Previous: 11.7- 14.7RECOMMENDED COUMADIN/WARFARIN INR THERAPY RANGESSTANDARD DOSE: 2.0-3.0 Includes: PROPHYLAXIS for venous thrombosis, systemic embolization; TREATMENT for venous thrombosis and/or pulmonary embolus.HIGH RISK: Target INR is 2.5-3.5 for patients wiht mechanical heart valves.[id number] 06:09:00 Test Item Value Reference Range Interpretation Comments PARTIAL THROMBOPLASTIN TIME 44.9 seconds 22.5-36.0 H (BEAKER) (test code = 760) CBC W/PLT COUNT & AUTO [id number] 06:05:00 Test Item Value Reference Range Interpretation [...] PERCENT (BEAKER) (test code = 2801) POCT-GLUCOSE [id number] 21:09:00 Test Item Value Reference Range Interpretation Comments POC-GLUCOSE METER 180 mg/dL 70-110 H : TESTED A T [facility] 6720 (BEAKER) (test code = [facility], 153) 56780: Recreation Programmer/Techni juan antonio ID = [id number] for KATIE LOO POCT-GLUCOSE [id number] 18:29:00 Test Item Value Reference Range Interpretation Comments POC-GLUCOSE METER 120 mg/dL 70-110 H : TESTED A T [facility] 6720 (BEAKER) (test code = [facility], 153) 26470: Recreation Programmer/Techni juan antonio ID = [id number] for Lu Mcrae POCT-GLUCOSE [id number] 12:18:00 Test Item Value Reference Range Interpretation Comments POC-GLUCOSE METER 106 mg/dL 70-110 : TESTED A T [facility] 6720 (BEAKER) (test code = [facility], 1538) 66254: Recreation Programmer/Techni juan antonio ID = [id number] for Lu Mcrae POCT-GLUCOSE [id number] 09:32:00 Test Item Value Reference Range Interpretation Comments POC-GLUCOSE METER 94 mg/dL 70-110 : TESTED A T [facility] 6720 (BEAKER) (test code = [facility], 1538) 41946: Recreation Programmer/Techni juan antonio ID = [id number] for CHINO MUNOZ POCT-GLUCOSE [id number] 06:00:00 Test Item Value Reference Range Interpretation Comments POC-GLUCOSE METER 124 mg/dL 70-110 H : TESTED A T [facility] 6720 (BEAKER) (test code = [facility], 1538) 93641: Recreation Programmer/Techni juan antonio ID = [id number] for YONI DOLAN COMPREHENSIVE METABOLIC [id number] 02:50:00 Test Item Value Reference Range Interpretation [...] 347) EGFR (BEAKER) (test 52 mL/min/1.73 ESTIMA JACQUELYN GFR IS code = 1092) sq m NOT ACCURATE CREATININE CLEARANCE IN PREDICTING GLOMERULAR FILTRATION RATE . ESTIMATED GFR I S NOT APPLICABLE FOR DIALYSIS PATIEN TS. Recreation Programmer ID - ALIZA MSpecimen slightly ictericPROTHROMBIN TIME/[id number] 02:41:00 Test Item Value Reference Range Interpretation Comments PROTIME (BEAKER) 19.5 seconds 11.9-14.2 H (test code = 759) INR (BEAKER) (test 1.70 See_Comment [Automat ed message] code = 370) The system [employer] generated this result transmitted ref erence range: <=5.90. The reference range was not used to int erpret this result as normal/abnormal . Effective 03/14/2019: PT Reference Range ChangeNew: 11.9-14.2 Previous: 11.7- 14.7RECOMMENDED COUMADIN/WARFARIN INR THERAPY RANGESSTANDARD DOSE: 2.0-3.0 Includes: PROPHYLAXIS for venous thrombosis, systemic embolization; TREATMENT for venous thrombosis and/or pulmonary embolus.HIGH RISK: Target INR is 2.5-3.5 for patients wiht mechanical heart valves.[id number] 02:41:00 Test Item Value Reference Range Interpretation Comments PARTIAL THROMBOPLASTIN TIME 45.0 seconds 22.5-36.0 H (BEAKER) (test code = 760) CBC W/PLT COUNT & AUTO [id number] 02:28:00 Test Item Value Reference Range Interpretation [...] (BEAKER) (test code = 2801) HEMOGLOBIN AND [id number] 02:16:00 Test Item Value Reference Range Interpretation Comments HEMOGLOBIN (BEAKER) (test code = 8.2 GM/DL 11.2-15.7 L 410) HEMATOCRIT (BEAKER) (test code = 26.3 % 34.1-44.9 L 411) POCT-GLUCOSE [id number] 23:32:00 Test Item Value Reference Range Interpretation Comments POC-GLUCOSE METER 127 mg/dL 70-110 H : TESTED A T [facility] 6720 (BEAKER) (test code = [facility], 1538) 83989: Recreation Programmer/Techni juan antonio ID = [id number] for KATIE LOO HEMOGLOBIN AND [id number] 18:28:00 Test Item Value Reference Range Interpretation Comments HEMOGLOBIN (BEAKER) (test code = 8.2 GM/DL 11.2-15.7 L 410) HEMATOCRIT (BEAKER) (test code = 26.7 % 34.1-44.9 L 411) Recreation Programmer ID - [id number] ID - [id number]-GLUCOSE [id number] 17:02:00 Test Item Value Reference Range Interpretation Comments POC-GLUCOSE METER 139 mg/dL 70-110 H : TESTED A T [facility] 6720 (BEAKER) (test code [facility], = 1538) 89243: Recreation Programmer/Techni juan antonio ID = [id number] for TSEG GAI, TSIGHEREDA POCT-GLUCOSE [id number] 13:03:00 Test Item Value Reference Range Interpretation Comments POC-GLUCOSE METER 129 mg/dL 70-110 H : TESTED A T [facility] 6720 (BEAKER) (test code [facility], = 1538) 50990: Recreation Programmer/Techni juan antonio ID = [id number] for TSEG GAI, TSIGHEREDA HEMOGLOBIN AND [id number] 09:35:00 Test Item Value Reference Range Interpretation Comments HEMOGLOBIN (BEAKER) (test code = 8.9 GM/DL 11.2-15.7 L 410) HEMATOCRIT (BEAKER) (test code = 29.1 % 34.1-44.9 L 411) Recreation Programmer ID - [id number]-GLUCOSE [id number] 08:43:00 Test Item Value Reference Range Interpretation Comments POC-GLUCOSE METER 96 mg/dL 70-110 : TESTED A T [facility] 6720 (BEAKER) (test code [facility], = 1538) 29993: Recreation Programmer/Techni juan antonio ID = [id number] for TSEG GAI, TSIGHEREDA CBC W/PLT COUNT & AUTO [id number] 07:28:00 Test Item Value Reference Range Interpretation [...] (BEAKER) (test code = 2801) COMPREHENSIVE METABOLIC [id number] 07:12:00 Test Item Value Reference Range Interpretation [...] 347) EGFR (BEAKER) (test 50 mL/min/1.73 ESTIMA JACQUELYN GFR IS code = 1092) sq m NOT ACCURATE CREATININE CLEARANCE IN PREDICTING GLOMERULAR FILTRATION RATE . ESTIMATED GFR I S NOT APPLICABLE FOR DIALYSIS PATIEN TS. Recreation Programmer ID - PIAYA LSpecimen slightly [id number] 07:09:00 Test Item Value Reference Range Interpretation Comments MAGNESIUM (BEAKER) (test code = 1.7 mg/dL 1.6-2.6 627) Recreation Programmer ID - PIAYA [id number] 07:09:00 Test Item Value Reference Range Interpretation Comments PHOSPHORUS (BEAKER) (test code = 2.5 mg/dL 2.3-4.7 604) Recreation Programmer ID - PIAYA LPROTHROMBIN TIME/[id number] 06:59:00 Test Item Value Reference Range Interpretation Comments PROTIME (BEAKER) 19.8 seconds 11.9-14.2 H (test code = 759) INR (BEAKER) (test 1.73 See_Comment [Automat ed message] code = 370) The system [employer] generated this result transmitted ref erence range: <=5.90. The reference range was not used to int erpret this result as normal/abnormal . Effective 03/14/2019: PT Reference Range ChangeNew: 11.9-14.2 Previous: 11.7- 14.7RECOMMENDED COUMADIN/WARFARIN INR THERAPY RANGESSTANDARD DOSE: 2.0-3.0 Includes: PROPHYLAXIS for venous thrombosis, systemic embolization; TREATMENT for venous thrombosis and/or pulmonary embolus.HIGH RISK: Target INR is 2.5-3.5 for patients wiht mechanical heart valves.[id number] 06:59:00 Test Item Value Reference Range Interpretation Comments PARTIAL THROMBOPLASTIN TIME 47.3 seconds 22.5-36.0 H (BEAKER) (test code = 760) CALCIUM, [id number] 06:46:00 Test Item Value Reference Range Interpretation Comments CALCIUM IONIZED (BEAKER) (test 1.09 mmol/L 1.12-1.27 L code = 698) PH, BLOOD (BEAKER) (test code = 7.40 1810) POCT-GLUCOSE [id number] 05:56:00 Test Item Value Reference Range Interpretation Comments POC-GLUCOSE METER 93 mg/dL 70-110 : TESTED A T [facility] 6720 (BEAKER) (test code = [facility] [facility], 1538) 36043: Recreation Programmer/Techni juan antonio ID = [id number] for YONI PUGH POCT-GLUCOSE [id number] 17:37:00 Test Item Value Reference Range Interpretation Comments POC-GLUCOSE METER 143 mg/dL 70-110 H : TESTED A T [facility] 6720 (BEAKER) (test code = [facility], 1538) 78547: Recreation Programmer/Techni juan antonio ID = [id number] for An julio cesarabi Katelynn HEMOGLOBIN AND [id number] 16:53:00 Test Item Value Reference Range Interpretation Comments HEMOGLOBIN (BEAKER) (test code = 6.4 GM/DL 11.2-15.7 L 410) HEMATOCRIT (BEAKER) (test code = 21.4 % 34.1-44.9 L 411) Recreation Programmer ID - [id number] W/PLT COUNT & AUTO [id number] 13:07:00 Test Item Value Reference Range Interpretation [...] to report due WIDTH (BEAKER) (test to [facility] RBC code = 412) population distribution. PLATELET [...] CONCENTRATION Decreased (CELLAVISION)(BEAKER) (test code = 3438) Recreation Programmer ID - Maday Lazar comments: Slide comments:POCT-GLUCOSE METER 2020-12-11 12:23:00 Test Item Value Reference Range Interpretation Comments POC-GLUCOSE METER 159 mg/dL 70-110 H : TESTED A T [facility] 6720 (BEAKER) (test code = [place], 1538) 72499: Recreation Programmer/Techni juan antonio ID = [id number] for An Katelynn spann [id number] 07:14:00 Test Item Value Reference Range Interpretation Comments MAGNESIUM (BEAKER) (test code = 2.0 mg/dL 1.6-2.6 627) Recreation Programmer ID - MURALI [id number] 07:14:00 Test Item Value Reference Range Interpretation Comments PHOSPHORUS (BEAKER) (test code = 2.7 mg/dL 2.3-4.7 604) Recreation Programmer ID Shakir CARRION LCOMPREHENSIVE METABOLIC [id number] 07:14:00 Test Item Value Reference Range Interpretation [...] S NOT APPLICABLE FOR DIALYSIS PATIEN TS. Recreation Programmer ID - MURALI LSpecimen slightly ictericB-TYPE NATRIURETIC FACTOR (BNP) 2020-12-11 07:11:00 Test Item Value Reference Range Interpretation Comments B-TYPE NATRIURETIC PEPTIDE (BEAKER) 192 pg/mL 0-100 H (test code = 700) Recreation Programmer ID - MURALI LCALCIUM, [id number] 06:57:00 Test Item Value Reference Range Interpretation Comments CALCIUM IONIZED (BEAKER) (test 1.08 mmol/L 1.12-1.27 L code = 698) PH, BLOOD (BEAKER) (test code = 7.42 1810) PROTHROMBIN TIME/[id number] 06:53:00 Test Item Value Reference Range Interpretation Comments PROTIME (BEAKER) 19.7 seconds 11.9-14.2 H (test code = 759) INR (BEAKER) (test 1.72 See_Comment [Automat ed message] code = 370) The system [employer] generated this result transmitted ref erence range: <=5.90. The reference range was not used to int erpret this result as normal/abnormal . Effective 03/14/2019: PT Reference Range ChangeNew: 11.9-14.2 Previous: 11.7- 14.7RECOMMENDED COUMADIN/WARFARIN INR THERAPY RANGESSTANDARD DOSE: 2.0-3.0 Includes: PROPHYLAXIS for venous thrombosis, systemic embolization; TREATMENT for venous thrombosis and/or pulmonary embolus.HIGH RISK: Target INR is 2.5-3.5 for patients wiht mechanical heart valves.[id number] 06:53:00 Test Item Value Reference Range Interpretation Comments PARTIAL THROMBOPLASTIN TIME 43.2 seconds 22.5-36.0 H (BEAKER) (test code = 760) POCT-GLUCOSE [id number] 06:26:00 Test Item Value Reference Range Interpretation Comments POC-GLUCOSE METER 105 mg/dL 70-110 : TESTED A T [facility] 6720 (BEAKER) (test code = [place], 1538) 67231: Recreation Programmer/Techni juan antonio ID = [id number] for ALVINA HUANG RAD, CHEST, 1 VIEW, NON [id number] 03:58:00DR JALAKYMeferring: Dr. Eric Morel for exam:->edemaShould this be performed at the bedside?->Yes [facility] : 1950 Sex: FFINAL REPORT RAD, CHEST, 1 VIEW, NON DEPT INDICATION: edema COMPARISON: Exam from eight hours prior FINDINGS: Portable frontal view of the chest. IMPRESSION: Support Lines: None Lungs and pleura: Hypoinflated lungs without significant change in bilateral patchy lung opacities. Nosizable effusion. No pneumothorax.Heart and mediastinum: Stable contours.Additional findings: None. S igned: [place] Galicia [facility] Verified Date/Time: 12/11/2020 03:58:26 U/S, ENDOVAGINAL (EV)2020-12-11 03:56:00DR HILTONLAKYMeferring: Dr. Eric Morel for exam:->Vaginal bleeding [facility] : 1950 Sex: FFINAL REPORT U/S, ENDOVAGINAL (EV) CLINICAL INDICATION: Vaginal bleeding COMPARISON: None TECHNIQUE: Pelvic ultrasound was performed transvaginally. FINDINGS: The uterus measures approximately 9.2 x 5.4 x 5 cm. There is nonspecific heterogeneity of the myometrium. There is no myometrial mass. The endometrial echocomplex is heterogeneous measuring 23 mm in caliber without vascular flow. The cervix is long and closed. The right ovary was not visualized due to obscuration by bowelgas. The left ovary measures 2.7 x 1.5 x 2.1 cm and demonstrates normal vascular flow on color and spectral Doppler ultrasound. There is moderate free fluid in the pelvis. There is a Swift catheter balloon in the urinary bladder. IMPRESSION:Thickened and heterogeneous endometrium. Differential diagnosis includes endometrial carcinoma, endometrial polyp or hyperplasia. [employer] MACHINE OPERATOR evaluation is recommended.Nonvisualization of the right ovary.Moderate pelvic free fluid. Signed: Amy Villavicencio Verified Date/Time: 12/11/2020 03:56:10 U/S, ABDOMINAL, [id number] 03:13:00DR JAMES Referring: Dr. Eric Neal Labs to be ordered:->Cell Count Labs to be ordered:- >Body Fluid Culture (w/Gram Stain, C\\T\\S) Reason for exam:->ascites r/u SBPHAMMOND [facility]Name[facility] : 1950 Sex: FFINAL REPORT TECHNIQUE: Grayscale ultrasound of the abdomen. INDICATION: ascites r/u SBP. COMPARISON: None. IMPRESSION: No ascites on sonographic survey of all four quadrants of the abdomen. Signed: Jersey Galicia Verified Date/Time: 12/11/2020 03:13:18 POCT-GLUCOSE [id number] 00:14:00 Test Item Value Reference Range Interpretation Comments POC-GLUCOSE METER 125 mg/dL 70-110 H : TESTED A T [facility] 6720 (BEAKER) (test code = [place], 1538) 74634: Recreation Programmer/Techni juan antonio ID = [id number] for ALVINA HUANG SARS-COV2/RT-PCR ([facility])2020-12-10 22:11:00 Test Item Value Reference Range Interpretation Comments SARS-COV2/RT-PCR (test Negative Not Detected, Negative, code = 4655381) See external report for linked test SARS-COV-[address] [facility] DENITA (test code = 0169843) Negative result for this test determines that [...] justifying the authorization of the emergency use ofin vitro diagnostic tests for detection and/or diagnosis of COVID-19 is terminated under Section 564(b)(2) of the Act or the EUA is revoked under Section 564(g) of the Act.Fact Sheet for Healthcare Prov iders:https://www.[employer]/sites/default/files/product/documents/Fact_Sheet_HC _Qjuyuzmqr_Naqo_DDVT-DiB-4.pdfFact Sheet for Healthcare Patients:https://www.[employer]/sites/default/files/product/docume nts/Egfn_Rfccb_Caarmzjd_Oqdc_IAMT-YrO-3.pdfPerforming Laboratory:[facility] [facility] Cent[address].[place], [place] [address]MPXMUSGKQB AND HEMATOCRIT 2020-12-10 20:58:00 Test Item Value Reference Range Interpretation Comments HEMOGLOBIN (BEAKER) (test code = 7.5 GM/DL 11.2-15.7 L 410) HEMATOCRIT (BEAKER) (test code = 24.4 % 34.1-44.9 L 411) Recreation Programmer ID - [id number], CHEST, 1 VIEW, NON [id number] 13:15:00DR HILTONLAKYMeferring: Dr. Eric Morel for exam:->encephalopathy r/o infectionShould this be performed at the bedside?->Yes [facility] : 1950 Sex: FFINAL REPORT INDICATION: encephalopathy r/o infection COMPARISON: None TECHNIQUE: Single frontal view of the chest. FINDINGS: Lungs and pleura: Mild basilar interstitial thickening and small bilateral effusions. Superimposed infection may be excluded clinically. No effusion.Heartand mediastinum: Normal heart size. Unremarkable mediastinal contours.Osseous structures: No acute ab normality.Other: None. Signed: Isidoro, Afshan MDReport Verified Date/Time: 12/10/2020 13:15:33 Reading Location: [facility] Radiology Reading Room -GLUCOSE [id number] 12:25:00 Test Item Value Reference Range Interpretation Comments POC-GLUCOSE METER 128 mg/dL 70-110 H : TESTED A T [facility] 6720 (BEAKER) (test code = [place], 1538) 33288: Recreation Programmer/Techni juan antonio ID = [id number] for SIRIA TANG [id number] 12:11:00 Test Item Value Reference Range Interpretation Comments AMMONIA (BEAKER) (test code = 348) 72 mol/L 18-72 Recreation Programmer ID - MURALI LBASIC METABOLIC [id number] 07:18:00 Test Item Value Reference Range Interpretation [...] 697) EGFR (BEAKER) (test 42 mL/min/1.73 ESTIMA JACQUELYN GFR IS code = 1092) sq m NOT ACCURATE CREATININE CLEARANCE IN PREDICTING GLOMERULAR FILTRATION RATE . ESTIMATED GFR I S NOT APPLICABLE FOR DIALYSIS PATIEN TS. Recreation Programmer ID - PIAYA LSpecimen slightly ictericHEPATIC FUNCTION [id number] 07:18:00 Test Item Value Reference Range Interpretation [...] (test code = 48 U/L 6-55 347) Recreation Programmer ID - MURALI LSpecimen slightly ictericCBC W/PLT COUNT & AUTO [id number] 07:06:00 Test Item Value Reference Range Interpretation [...] PERCENT (BEAKER) (test code = 2801) PROTHROMBIN TIME/[id number] 07:00:00 Test Item Value Reference Range Interpretation Comments PROTIME (BEAKER) 18.1 seconds 11.9-14.2 H (test code = 759) INR (BEAKER) (test 1.55 See_Comment [Automat ed message] code = 370) The system [employer] generated this result transmitted ref erence range: <=5.90. The reference range was not used to int erpret this result as normal/abnormal . Effective 03/14/2019: PT Reference Range ChangeNew: 11.9-14.2 Previous: 11.7- 14.7RECOMMENDED COUMADIN/WARFARIN INR THERAPY RANGESSTANDARD DOSE: 2.0-3.0 Includes: PROPHYLAXIS for venous thrombosis, systemic embolization; TREATMENT for venous thrombosis and/or pulmonary embolus.HIGH RISK: Target INR is 2.5-3.5 for patients wiht mechanical heart valves.URINALYSIS W/ [...] = 514) SOURCE(BEAKER) (test code = 2795) Recreation Programmer ID - [auto]Recreation Programmer ID - techCOMPREHENSIVE METABOLIC [id number] 07:02:00 Test Item Value Reference Range Interpretation [...] S NOT APPLICABLE FOR DIALYSIS PATIEN TS. Recreation Programmer ID - ADMINSpecimen slightly [id number] 07:00:00 Test Item Value Reference Range Interpretation Comments MAGNESIUM (BEAKER) (test code = 2.3 mg/dL 1.6-2.6 627) Recreation Programmer ID - [id number] 07:00:00 Test Item Value Reference Range Interpretation Comments PHOSPHORUS (BEAKER) (test code = 2.8 mg/dL 2.3-4.7 604) Recreation Programmer ID - ADMINHEPATIC FUNCTION [id number] 07:00:00 Test Item Value Reference Range Interpretation [...] code = 56 U/L 6-55 H 347) Recreation Programmer ID - ADMINSpecimen slightly ictericCREATINE KINASE (CK)2020-12-08 07:00:00 Test Item Value Reference Range Interpretation Comments CREATINE KINASE TOTAL (BEAKER) (test 35 U/L 29-200 code = 380) Recreation Programmer ID - ADMINCBC W/PLT COUNT & AUTO [id number] 06:58:00 Test Item Value Reference Range Interpretation [...] PERCENT (BEAKER) (test code = 2801) CALCIUM, [id number] 06:49:00 Test Item Value Reference Range Interpretation Comments CALCIUM IONIZED (BEAKER) (test 1.09 mmol/L 1.12-1.27 L code = 698) PH, BLOOD (BEAKER) (test code = 7.36 1810) PROTHROMBIN TIME/[id number] 06:48:00 Test Item Value Reference Range Interpretation Comments PROTIME (BEAKER) 19.0 seconds 11.9-14.2 H (test code = 759) INR (BEAKER) (test 1.66 See_Comment [Automat ed message] code = 370) The system [employer] generated this result transmitted ref erence range: <=5.90. The reference range was not used to int erpret this result as normal/abnormal . Effective 03/14/2019: PT Reference Range ChangeNew: 11.9-14.2 Previous: 11.7- 14.7RECOMMENDED COUMADIN/WARFARIN INR THERAPY RANGESSTANDARD DOSE: 2.0-3.0 Includes: PROPHYLAXIS for venous thrombosis, systemic embolization; TREATMENT for venous thrombosis and/or pulmonary embolus.HIGH RISK: Target INR is 2.5-3.5 for patients wiht mechanical heart valves.U/S, RENAL, [id number] 05:26:00DR GOLDYeferring: Dr. Eric Morel for exam:->jose manuel [facility] : 1950 Sex: FFINAL REPORT U/S, RENAL, COMPLETEUltrasound of the Kidneys Clinical History: jose manuel Discussion: Sonographic evaluation of the kidneys is performed. Right kidney: 12.0 x 6.3 x 6.3 cm,with cortical thickness of 1.5 cm. Normal cortical [...] MDReport Verified Date/Time: 12/08/2020 05:26:28 CREATININE, RANDOM URINE 2020-12-07 21:05:00 Test Item Value Reference Range Interpretation Comments CREATININE URINE (BEAKER) (test 130.0 mg/dL code = 375) Reference Range: No NormalsOperator ID - BSPROTEIN, RANDOM [id number] 21:05:00 Test Item Value Reference Range Interpretation Comments PROTEIN, URINE (BEAKER) (test code = 32 mg/dL 0-14 H 1569) Recreation Programmer ID - BSSODIUM, RANDOM [id number] 21:05:00 Test Item Value Reference Range Interpretation Comments SODIUM URINE (BEAKER) (test code = 26 meq/L 243) Reference Range: No NormalsOperator ID - BSURINALYSIS W/ [id number] 20:44:00 Test Item Value Reference Range Interpretation [...] = 516) SOURCE(BEAKER) (test code = 2795) Recreation Programmer ID - [auto]Recreation Programmer ID - techCOMPREHENSIVE METABOLIC [id number] 05:50:00 Test Item Value Reference Range Interpretation [...] S NOT APPLICABLE FOR DIALYSIS PATIEN TS. Recreation Programmer ID - EDASISpecimen slightly [id number] 05:49:00 Test Item Value Reference Range Interpretation Comments MAGNESIUM (BEAKER) (test code = 2.4 mg/dL 1.6-2.6 627) Recreation Programmer ID - [id number] 05:49:00 Test Item Value Reference Range Interpretation Comments PHOSPHORUS (BEAKER) (test code = 3.3 mg/dL 2.3-4.7 604) Recreation Programmer ID - EDASIHEPATIC FUNCTION [id number] 05:49:00 Test Item Value Reference Range Interpretation [...] code = 69 U/L 6-55 H 347) Recreation Programmer ID - EDASISpecimen slightly ictericPROTHROMBIN TIME/[id number] 05:41:00 Test Item Value Reference Range Interpretation Comments PROTIME (BEAKER) 18.3 seconds 11.9-14.2 H (test code = 759) INR (BEAKER) (test 1.58 See_Comment [Automat ed message] code = 370) The system [employer] generated this result transmitted ref erence range: <=5.90. The reference range was not used to int erpret this result as normal/abnormal . Effective 03/14/2019: PT Reference Range ChangeNew: 11.9-14.2 Previous: 11.7- 14.7RECOMMENDED COUMADIN/WARFARIN INR THERAPY RANGESSTANDARD DOSE: 2.0-3.0 Includes: PROPHYLAXIS for venous thrombosis, systemic embolization; TREATMENT for venous thrombosis and/or pulmonary embolus.HIGH RISK: Target INR is 2.5-3.5 for patients wiht mechanical heart valves.CALCIUM, [id number] 05:28:00 Test Item Value Reference Range Interpretation Comments CALCIUM IONIZED (BEAKER) (test 1.10 mmol/L 1.12-1.27 L code = 698) PH, BLOOD (BEAKER) (test code = 7.34 1810) CBC W/PLT COUNT & AUTO [id number] 05:27:00 Test Item Value Reference Range Interpretation [...] (BEAKER) (test code = 2801) COMPREHENSIVE METABOLIC [id number] 06:09:00 Test Item Value Reference Range Interpretation [...] S NOT APPLICABLE FOR DIALYSIS PATIEN TS. Recreation Programmer ID - ALIZA MSpecimen slightly ictericCBC W/PLT COUNT & AUTO [id number] 05:56:00 Test Item Value Reference Range Interpretation [...] GRANULOCYTES-RELATIVE PERCENT (BEAKER) (test code = 2801) [id number] 05:53:00 Test Item Value Reference Range Interpretation Comments MAGNESIUM (BEAKER) (test code = 2.2 mg/dL 1.6-2.6 627) Recreation Programmer ID - ALIZA MHEPATIC FUNCTION [id number] 05:53:00 Test Item Value Reference Range Interpretation [...] code = 84 U/L 6-55 H 347) Recreation Programmer ID - ALIZA MSpecimen slightly [id number] 06:10:00 Test Item Value Reference Range Interpretation Comments MAGNESIUM (BEAKER) (test code = 2.0 mg/dL 1.6-2.6 627) Recreation Programmer ID - [id number] 06:10:00 Test Item Value Reference Range Interpretation Comments PHOSPHORUS (BEAKER) (test code = 2.5 mg/dL 2.3-4.7 604) Recreation Programmer ID - JACOBASICOMPREHENSIVE METABOLIC [id number] 06:10:00 Test Item Value Reference Range Interpretation [...] S NOT APPLICABLE FOR DIALYSIS PATIEN TS. Recreation Programmer ID - EDASISpecimen moderately ictericHEPATIC FUNCTION [id number] 06:10:00 Test Item Value Reference Range Interpretation [...] code = 95 U/L 6-55 H 347) Recreation Programmer ID - EDASISpecimen moderately ictericB-TYPE NATRIURETIC FACTOR (BNP) 2020-12-05 05:49:00 Test Item Value Reference Range Interpretation Comments B-TYPE NATRIURETIC PEPTIDE (BEAKER) 231 pg/mL 0-100 H (test code = 700) Recreation Programmer ID - EDASIPROTHROMBIN TIME/[id number] 05:27:00 Test Item Value Reference Range Interpretation Comments PROTIME (BEAKER) 20.0 seconds 11.9-14.2 H (test code = 759) INR (BEAKER) (test 1.77 See_Comment [Automat ed message] code = 370) The system [employer] generated this result transmitted ref erence range: <=5.90. The reference range was not used to int erpret this result as normal/abnormal . Effective 03/14/2019: PT Reference Range ChangeNew: 11.9-14.2 Previous: 11.7- 14.7RECOMMENDED COUMADIN/WARFARIN INR THERAPY RANGESSTANDARD DOSE: 2.0-3.0 Includes: PROPHYLAXIS for venous thrombosis, systemic embolization; TREATMENT for venous thrombosis and/or pulmonary embolus.HIGH RISK: Target INR is 2.5-3.5 for patients wiht mechanical heart valves.CBC W/PLT COUNT & AUTO [id number] 05:19:00 Test Item Value Reference Range Interpretation [...] PERCENT (BEAKER) (test code = 2801) CALCIUM, [id number] 05:19:00 Test Item Value Reference Range Interpretation Comments CALCIUM IONIZED (BEAKER) (test 1.11 mmol/L 1.12-1.27 L code = 698) PH, BLOOD (BEAKER) (test code = 7.41 1810) BILIRUBIN, [id number] 10:34:00 Test Item Value Reference Range Interpretation Comments BILIRUBIN DIRECT (BEAKER) (test 2.3 mg/dL 0.1-0.5 H code = 706) Recreation Programmer ID - AAHAMIDSARS-COV2/RT-PCR ([facility])2020-12-04 07:25:00 Test Item Value Reference Range Interpretation Comments SARS-COV2/RT-PCR (test Negative Not Detected, Negative, code = 2142743) See external report for linked test SARS-COV-[address] [facility] DENITA (test code = 0284394) Negative result for this test determines that [...] justifying the authorization of the emergency use ofin vitro diagnostic tests for detection and/or diagnosis of COVID-19 is terminated under Section 564(b)(2) of the Act or the EUA is revoked under Section 564(g) of the Act.Fact Sheet for Healthcare Prov iders:https://www.[employer]/sites/default/files/product/documents/Fact_Sheet_HC _Psdpiupsc_Lohd_JOBE-UxU-4.pdfFact Sheet for Healthcare Patients:https://www.[employer]/sites/default/files/product/docume nts/Diqp_Wodol_Duavdhqx_Gcge_VGSB-QrR-4.pdfPerforming Laboratory:[facility], [place] [address]K-DNYO NATRIURETIC FACTOR (BNP)2020-12-04 05:48:00 Test Item Value Reference Range Interpretation Comments B-TYPE NATRIURETIC PEPTIDE (BEAKER) 365 pg/mL 0-100 H (test code = 700) Recreation Programmer ID - ALIZA [id number] 05:42:00 Test Item Value Reference Range Interpretation Comments MAGNESIUM (BEAKER) (test code = 2.1 mg/dL 1.6-2.6 627) Recreation Programmer ID - ALIZA [id number] 05:42:00 Test Item Value Reference Range Interpretation Comments PHOSPHORUS (BEAKER) (test code = 2.2 mg/dL 2.3-4.7 L 604) Recreation Programmer ID - ALIZA MCOMPREHENSIVE METABOLIC [id number] 05:42:00 Test Item Value Reference Range Interpretation [...] S NOT APPLICABLE FOR DIALYSIS PATIEN TS. Recreation Programmer ID - ALIZA MSpecimen moderately ictericCALCIUM, [id number] 05:18:00 Test Item Value Reference Range Interpretation Comments CALCIUM IONIZED (BEAKER) (test 1.11 mmol/L 1.12-1.27 L code = 698) PH, BLOOD (BEAKER) (test code = 7.38 1810) CBC W/PLT COUNT & AUTO [id number] 05:13:00 Test Item Value Reference Range Interpretation [...] PERCENT (BEAKER) (test code = 2801) BLOOD [id number] 00:00:00 Test Item Value Reference Range Interpretation Comments CULTURE (BEAKER) (test No growth in 5 days code = 1095) BLOOD [id number] 00:00:00 Test Item Value Reference Range Interpretation Comments CULTURE (BEAKER) (test No growth in 5 days code = 1095) RAD, CHEST, 1 VIEW, NON [id number] 22:22:00DR Verdeing: Dr. Eric Morel for exam:->edemaShould this be performed at the bedside?->Yes [facility] 1950 Sex: FFINAL REPORT RAD, CHEST, 1 VIEW, NON DEPT INDICATION: edema COMPARISON: November 26, 2020 FINDINGS: Portable frontal view of the chest. IMPRESSION:Patient is rotated toward the left distorting anatomic landmarks. Increased pulmonary airspace disease compatible worsening pulmonaryedema or pneumonitis. Retrocardiac consolidation present, likely atelectasis or confluent edema. Small pleural effusions are not excluded. No pneumothorax. Cardiomediastinal silhouette is partially obscured and magnified by technique. Stable osseous structures. Signed: Michael Tabares MDReport Verified Date/Time: 12/03/2020 22:22:17 [facility]ENTEROMPREHENSIVE METABOLIC [id number] 06:26:00 Test Item Value Reference Range Interpretation [...] S NOT APPLICABLE FOR DIALYSIS PATIEN TS. Recreation Programmer ID - ALIZA MSpecimen moderately [id number] 06:20:00 Test Item Value Reference Range Interpretation Comments MAGNESIUM (BEAKER) (test code = 2.3 mg/dL 1.6-2.6 627) Recreation Programmer ID - ALIZA MCBC W/PLT COUNT & AUTO [id number] 06:08:00 Test Item Value Reference Range Interpretation [...] (BEAKER) (test code = 2801) COMPREHENSIVE METABOLIC [id number] 06:20:00 Test Item Value Reference Range Interpretation [...] S NOT APPLICABLE FOR DIALYSIS PATIEN TS. Recreation Programmer ID - ALIZA MSpecimen slightly ictericCALCIUM, [id number] 05:40:00 Test Item Value Reference Range Interpretation Comments CALCIUM IONIZED (BEAKER) (test 1.14 mmol/L 1.12-1.27 code = 698) PH, BLOOD (BEAKER) (test code = 7.26 1810) [id number] 05:36:00 Test Item Value Reference Range Interpretation Comments MAGNESIUM (BEAKER) (test code = 2.5 mg/dL 1.6-2.6 627) Recreation Programmer ID - ALIZA [id number] 05:36:00 Test Item Value Reference Range Interpretation Comments PHOSPHORUS (BEAKER) (test code = 2.2 mg/dL 2.3-4.7 L 604) Recreation Programmer ID - ALIZA MBILIRUBIN, [id number] 05:36:00 Test Item Value Reference Range Interpretation Comments BILIRUBIN DIRECT (BEAKER) (test 1.8 mg/dL 0.1-0.5 H code = 706) Recreation Programmer ID - ALIZA MCREATINE KINASE (CK)2020-12-02 05:36:00 Test Item Value Reference Range Interpretation Comments CREATINE KINASE TOTAL (BEAKER) (test 385 U/L 29-200 H code = 380) Recreation Programmer ID - ALIZA MCBC W/PLT COUNT & AUTO [id number] 05:07:00 Test Item Value Reference Range Interpretation [...] (BEAKER) (test code = 2801) U/S, ABDOMINAL, [id number] 13:39:00DR JAMES Referring: Dr. Eric Neal Labs to be ordered:->Body Fluid Culture (w/Gram Stain, C\\T\\S) Labs to be ordered:- >Cell Count Reason for exam:->diagnostic. limit 2 L for therapeutic. [facility] : 1950 Sex: FFINAL REPORT U/S, ABDOMINAL, LIMITED CLINICAL HISTORY: diagnostic. Limit 2 L for therapeutic. COMPARISON: Abdominal MRI 12/06/2020 TECHNIQUE: Real time transverse and longitudinal images of the abdominal quadrants were obtained. FINDINGS / IMPRESSION: Small volume ascites, mostly perihepatic, insufficient for paracentesis, no paracentesis performed. Signed: Kell Langston Lakisha ified Date/Time: 12/01/2020 13:39:28 Reading Location: [facility] C013Y CT Body Reading Room CREATINE KINASE (CK)2020-12-01 11:58:00 Test Item Value Reference Range Interpretation Comments CREATINE KINASE TOTAL (BEAKER) (test 610 U/L 29-200 H code = 380) Recreation Programmer ID - ALIZA MCOMPREHENSIVE METABOLIC [id number] 05:36:00 Test Item Value Reference Range Interpretation [...] S NOT APPLICABLE FOR DIALYSIS PATIEN TS. Recreation Programmer ID - ALIZA MSpecimen slightly [id number] 05:33:00 Test Item Value Reference Range Interpretation Comments MAGNESIUM (BEAKER) (test code = 2.6 mg/dL 1.6-2.6 627) Recreation Programmer ID - ALIZA MPROTHROMBIN TIME/[id number] 05:32:00 Test Item Value Reference Range Interpretation Comments PROTIME (BEAKER) 19.5 seconds 11.9-14.2 H (test code = 759) INR (BEAKER) (test 1.70 See_Comment [Automat ed message] code = 370) The system [employer] generated this result transmitted ref erence range: <=5.90. The reference range was not used to int erpret this result as normal/abnormal . Effective 03/14/2019: PT Reference Range ChangeNew: 11.9-14.2 Previous: 11.7- 14.7RECOMMENDED COUMADIN/WARFARIN INR THERAPY RANGESSTANDARD DOSE: 2.0-3.0 Includes: PROPHYLAXIS for venous thrombosis, systemic embolization; TREATMENT for venous thrombosis and/or pulmonary embolus.HIGH RISK: Target INR is 2.5-3.5 for patients wiht mechanical heart valves.CBC W/PLT COUNT & AUTO [id number] 05:11:00 Test Item Value Reference Range Interpretation [...] (BEAKER) (test code = 2801) COMPREHENSIVE METABOLIC [id number] 07:42:00 Test Item Value Reference Range Interpretation [...] S NOT APPLICABLE FOR DIALYSIS PATIEN TS. Recreation Programmer ID - PIAYA LSpecimen slightly [id number] 07:16:00 Test Item Value Reference Range Interpretation Comments MAGNESIUM (BEAKER) 2.7 mg/dL 1.6-2.6 H Specimen slightly (test code = 627) hemolyzed Recreation Programmer ID - PIAYA LCBC W/PLT COUNT & AUTO [id number] 06:42:00 Test Item Value Reference Range Interpretation [...] PERCENT (BEAKER) (test code = 2801) PROTHROMBIN TIME/[id number] 06:15:00 Test Item Value Reference Range Interpretation Comments PROTIME (BEAKER) 20.0 seconds 11.9-14.2 H (test code = 759) INR (BEAKER) (test 1.75 See_Comment [Automat ed message] code = 370) The system [employer] generated this result transmitted ref erence range: <=5.90. The reference range was not used to int erpret this result as normal/abnormal . Effective 03/14/2019: PT Reference Range ChangeNew: 11.9-14.2 Previous: 11.7- 14.7RECOMMENDED COUMADIN/WARFARIN INR THERAPY RANGESSTANDARD DOSE: 2.0-3.0 Includes: PROPHYLAXIS for venous thrombosis, systemic embolization; TREATMENT for venous thrombosis and/or pulmonary embolus.HIGH RISK: Target INR is 2.5-3.5 for patients wiht mechanical heart valves.RAD, ABDOMEN/KUB, 1 VIEW [id number] 03:41:00DR JALALReferring: Dr. Eric Morel for exam:->constipationShould this be performed at the bedside?->Yes [facility] : 1950 Sex: FFINAL REPORT RAD, ABDOMEN/KUB, 1 VIEW AP CLINICAL HISTORY: constipation TECHNIQUE: RAD, ABDOMEN/KUB, 1 VIEW AP COMPARISON: None IMPRESSION: The bowel gas pattern is nonspecific/nonobstructive. Ndydi-sc-eicbnayr volume fecal burden visualized. Supine imaging insensitive for exclusion of free air. Bilateral pulmonary airspace disease present. Signed: Michael Tabares MDReport Verified Date/Time: 11/30/2020 03:41:22 BASIC METABOLIC [id number] 01:17:00 Test Item Value Reference Range Interpretation [...] S NOT APPLICABLE FOR DIALYSIS PATIEN TS. Recreation Programmer ID - PIAYA LSpecimen slightly ictericCBC (HEMOGRAM [...] WBC 0-0 (test code = 413) POCT-GLUCOSE [id number] 20:49:00 Test Item Value Reference Range Interpretation Comments POC-GLUCOSE METER 130 mg/dL 70-110 H : TESTED A T [facility] 67[address] (BEAKER) (test code = EDI JETT [place], 1538) [address]: Recreation Programmer/Techni juan antonio ID = [id number] for SHERRY GHOSH RA COMPREHENSIVE METABOLIC [id number] 06:22:00 Test Item Value Reference Range Interpretation [...] S NOT APPLICABLE FOR DIALYSIS PATIEN TS. Recreation Programmer ID - ALIZA MSpecimen slightly [id number] 06:17:00 Test Item Value Reference Range Interpretation Comments MAGNESIUM (BEAKER) (test code = 2.7 mg/dL 1.6-2.6 H 627) Recreation Programmer ID - ALIZA MPROTHROMBIN TIME/[id number] 06:05:00 Test Item Value Reference Range Interpretation Comments PROTIME (BEAKER) 21.5 seconds 11.9-14.2 H (test code = 759) INR (BEAKER) (test 1.92 See_Comment [Automat ed message] code = 370) The system [employer] generated this result transmitted ref erence range: <=5.90. The reference range was not used to int erpret this result as normal/abnormal . Effective 03/14/2019: PT Reference Range ChangeNew: 11.9-14.2 Previous: 11.7- 14.7RECOMMENDED COUMADIN/WARFARIN INR THERAPY RANGESSTANDARD DOSE: 2.0-3.0 Includes: PROPHYLAXIS for venous thrombosis, systemic embolization; TREATMENT for venous thrombosis and/or pulmonary embolus.HIGH RISK: Target INR is 2.5-3.5 for patients wiht mechanical heart valves.CBC W/PLT COUNT & AUTO [id number] 05:34:00 Test Item Value Reference Range Interpretation [...] PERCENT (BEAKER) (test code = 2801) CALCIUM, [id number] 06:38:00 Test Item Value Reference Range Interpretation Comments CALCIUM IONIZED (BEAKER) (test 1.01 mmol/L 1.12-1.27 L code = 698) PH, BLOOD (BEAKER) (test code = 7.38 1810) B-TYPE NATRIURETIC FACTOR (BNP)2020-11-28 05:27:00 Test Item Value Reference Range Interpretation Comments B-TYPE NATRIURETIC PEPTIDE (BEAKER) 465 pg/mL 0-100 H (test code = 700) Recreation Programmer ID - EDASICOMPREHENSIVE METABOLIC [id number] 05:25:00 Test Item Value Reference Range Interpretation [...] S NOT APPLICABLE FOR DIALYSIS PATIEN TS. Recreation Programmer ID - EDASISpecimen slightly [id number] 05:22:00 Test Item Value Reference Range Interpretation Comments MAGNESIUM (BEAKER) (test code = 2.5 mg/dL 1.6-2.6 627) Recreation Programmer ID - [id number] 05:22:00 Test Item Value Reference Range Interpretation Comments PHOSPHORUS (BEAKER) (test code = 2.6 mg/dL 2.3-4.7 604) Recreation Programmer ID - EDASICREATINE KINASE (CK)2020-11-28 05:22:00 Test Item Value Reference Range Interpretation Comments CREATINE KINASE TOTAL (BEAKER) (test 3438 U/L 29-200 H code = 380) Recreation Programmer ID - EDASICALCIUM, [id number] 05:07:00 Test Item Value Reference Range Interpretation Comments CALCIUM IONIZED (BEAKER) (test 1.04 mmol/L 1.12-1.27 L code = 698) PH, BLOOD (BEAKER) (test code = 7.39 1810) PROTHROMBIN [id number] 05:06:00 Test Item Value Reference Range Interpretation Comments PROTIME (BEAKER) 20.3 seconds 11.9-14.2 H (test code = 759) INR (BEAKER) (test 1.79 See_Comment [Automat ed message] code = 370) The system [employer] generated this result transmitted ref erence range: <=5.90. The reference range was not used to int erpret this result as normal/abnormal . Effective 03/14/2019: PT Reference Range ChangeNew: 11.9-14.2 Previous: 11.7- 14.7RECOMMENDED COUMADIN/WARFARIN INR THERAPY RANGESSTANDARD DOSE: 2.0-3.0 Includes: PROPHYLAXIS for venous thrombosis, systemic embolization; TREATMENT for venous thrombosis and/or pulmonary embolus.HIGH RISK: Target INR is 2.5-3.5 for patients wiht mechanical heart valves.CBC W/PLT COUNT & AUTO [id number] 05:00:00 Test Item Value Reference Range Interpretation [...] (BEAKER) (test code = 2801) URINALYSIS W/ [id number] 21:23:00 Test Item Value Reference Range Interpretation [...] 1585) Occasional SOURCE(BEAKER) (test code = 2795) Recreation Programmer ID - [auto]Recreation Programmer ID - techSODIUM, RANDOM [id number] 21:16:00 Test Item Value Reference Range Interpretation Comments SODIUM URINE (BEAKER) (test code = < meq/L 243) Reference Range: No NormalsOperator ID - BSCREATININE, RANDOM [id number] 21:13:00 Test Item Value Reference Range Interpretation Comments CREATININE URINE (BEAKER) (test 115.0 mg/dL code = 375) Reference Range: No NormalsOperator ID - BSPROTEIN, RANDOM [id number] 21:13:00 Test Item Value Reference Range Interpretation Comments PROTEIN, URINE (BEAKER) (test code = 74 mg/dL 0-14 H 1569) Recreation Programmer ID - BSUREA NITROGEN, RANDOM [id number] 21:13:00 Test Item Value Reference Range Interpretation [...] = 413) PERIPHERAL BLOOD SMEAR - PATHOLOGIST [id number] 13:22:00 Test Item Value Reference Range Interpretation Comments PERIPHERAL SMR REVIEW No circulating blasts. (BEAKER) (test code = No significantly 0370) increased schistocytes. [id number] Constantine Linn, (BEAKER) (test code = M.D.(electronic 6175) signature) CREATINE KINASE (CK)2020-11-27 06:15:00 Test Item Value Reference Range Interpretation Comments CREATINE KINASE TOTAL (BEAKER) (test 4837 U/L 29-200 H code = 380) Recreation Programmer ID - SMOperator ID - SMALPHA FETOPROTEIN (AFP), TUMOR [id number] 06:07:00 Test Item Value Reference Range Interpretation Comments ALPHA-FETOPROTEIN (BEAKER) (test code < ng/mL <10.0 = 1094) Recreation Programmer ID - ALIZA MHEPATITIS B SURFACE [id number] 06:07:00 Test Item Value Reference Range Interpretation Comments HEPATITIS B SURFACE ANTIBODY < mIU/mL <8.0 (BEAKER) (test code = 647) Recreation Programmer ID - ALIZA MTROPONIN [id number] 05:59:00 Test Item Value Reference Range Interpretation [...] failure, acidosis, acute neurological disease, and persistent tachyarrhythmia.Recreation Programmer ID - SMCNORTHEAST MISSOURI RURAL HEALTH NETWORKENSIVE METABOLIC [id number] 05:50:00 Test Item Value Reference Range Interpretation [...] S NOT APPLICABLE FOR DIALYSIS PATIEN TS. Recreation Programmer ID - SMPROTHROMBIN TIME/[id number] 05:42:00 Test Item Value Reference Range Interpretation Comments PROTIME (BEAKER) 19.7 seconds 11.9-14.2 H (test code = 759) INR (BEAKER) (test 1.72 See_Comment [Automat ed message] code = 370) The system [employer] generated this result transmitted ref erence range: <=5.90. The reference range was not used to int erpret this result as normal/abnormal . Effective 03/14/2019: PT Reference Range ChangeNew: 11.9-14.2 Previous: 11.7- 14.7RECOMMENDED COUMADIN/WARFARIN INR THERAPY RANGESSTANDARD DOSE: 2.0-3.0 Includes: PROPHYLAXIS for venous thrombosis, systemic embolization; TREATMENT for venous thrombosis and/or pulmonary embolus.HIGH RISK: Target INR is 2.5-3.5 for patients wiht mechanical heart valves.[id number] 05:41:00 Test Item Value Reference Range Interpretation Comments MAGNESIUM (BEAKER) (test code = 2.3 mg/dL 1.6-2.6 627) Recreation Programmer ID - [id number] 05:41:00 Test Item Value Reference Range Interpretation Comments PHOSPHORUS (BEAKER) (test code = 3.2 mg/dL 2.3-4.7 604) Recreation Programmer ID - SMB-TYPE NATRIURETIC FACTOR (BNP)2020-11-27 05:33:00 Test Item Value Reference Range Interpretation Comments B-TYPE NATRIURETIC PEPTIDE (BEAKER) 210 pg/mL 0-100 H (test code = 700) Recreation Programmer ID - SMCALCIUM, [id number] 05:27:00 Test Item Value Reference Range Interpretation Comments CALCIUM IONIZED (BEAKER) (test 1.04 mmol/L 1.12-1.27 L code = 698) PH, BLOOD (BEAKER) (test code = 7.33 1810) RETICULOCYTE [id number] 05:09:00 Test Item Value Reference Range Interpretation Comments RETICULOCYTE COUNT PCT (BEAKER) (test 2.3 % 0.5-1.7 H code = 575) Recreation Programmer ID - [id number] W/PLT COUNT & AUTO [id number] 05:09:00 Test Item Value Reference Range Interpretation [...] (BEAKER) (test code = 2801) MR, ABDOMEN, [id number] 20:05:00DR Priscillaerring: Dr. Eric Champion portal vein clot and hccUnlisted Reason for Exam - Click Yes and Enter Reason Below->NoMARTIN [facility] : 1950 Sex: FFINAL REPORT TECHNIQUE: MRI of the abdomen WITHOUT and WITH intravenous contrast. INDICATION: Portal hypertension. COMPARISON: Chest CT from 09/10/2019. MRI from 01/19/2018 FINDINGS: LOWER THORAX: There are findings of pulmonary fibrosis with for better assessed on the prior chest CT. Trace left pleural effusion. LIVER: Nodular, cirrhotic liver. No focal hepatic lesions. BILIARY: S tones layer in the gallbladder. No gallbladder distention. No biliary ductal dilatation or filling defect.SPLEEN: No splenomegaly. There are multiple wedge- shaped defects in the spleen, likely related to [...] MDReport Verified Date/Time: 11/26/2020 20:05:06 Reading Location: [facility] B1 C013Y CT Body Reading Room -COV2/RT-PCR ([facility])2020-11-26 18:12:00 Test Item Value Reference Range Interpretation Comments SARS-COV2/RT-PCR (test Negative Not Detected, Negative, code = 0317245) See external report for linked test SARS-COV-2 PERFORMING LAB [facility] (test code = 8978457) Negative result for this test determines that [...] justifying the authorization of the emergency use ofin vitro diagnostic tests for detection and/or diagnosis of COVID-19 is terminated under Section 564(b)(2) of the Act or the EUA is revoked under Section 564(g) of the Act.Fact Sheet for Healthcare Prov iders:https://www.[employer]/sites/default/files/product/documents/Fact_Sheet_HC _Wyegadmdk_Xecl_XRCL-SuX-3.pdfFact Sheet for Healthcare Patients:https://www.[employer]/sites/default/files/product/docume nts/Rnvv_Qfvjx_Zawyxtsw_Jmlq_MNBP-BlL-4.pdfPerforming Laboratory:44 [address].[place], [place] [id number] 17:43:00 Test Item Value Reference Range Interpretation Comments HAPTOGLOBIN (BEAKER) (test code = 52 mg/dL 14258 366) Recreation Programmer ID - BSVITAMIN B12 AND [id number] 16:08:00 Test Item Value Reference Range Interpretation Comments VITAMIN B12 659 pg/mL 213-816 (BEAKER) (test code = 774) FOLATE (BEAKER) 12.20 ng/mL See_Comment [Automated message] (test code = 362) The system which generated this result transmitted ref erence range: >=7.00. The reference range was not used to interpr et this result as normal/abnormal . Recreation Programmer ID - BSVITAMIN [id number] 15:58:00 Test Item Value Reference Range Interpretation Comments VITAMIN B12 (BEAKER) (test code = 623 pg/mL 213-816 774) Recreation Programmer ID - [id number] 15:58:00 Test Item Value Reference Range Interpretation Comments FERRITIN (BEAKER) (test code = 18.49 ng/mL 5.00-275.00 361) Recreation Programmer ID - BSTSH/FREE T4 IF [id number] 15:58:00 Test Item Value Reference Range Interpretation Comments THYROID STIMULATING HORMONE 1.498 uIU/mL 0.350-4.940 (BEAKER) (test code = 772) Recreation Programmer ID - BSTROPONIN [id number] 15:38:00 Test Item Value Reference Range Interpretation [...] failure, acidosis, acute neurological disease, and persistent tachyarrhythmia.Recreation Programmer ID - BSIRON, TIBC, % SAT. (WITHOUT FERRITIN)2020-11-26 15:31:00 Test Item Value Reference Range Interpretation Comments IRON (BEAKER) (test code = 547) 17.0 ug/dL 40.0-160.0 L TOTAL IRON BINDING CAPACITY 228 ug/dL 250-450 L (BEAKER) (test code = 769) IRON % SATURATION (2) (BEAKER) 7 % 20-55 L (test code = 2590) Recreation Programmer ID - BSLACTATE DEHYDROGENASE (LDH)2020-11-26 15:28:00 Test Item Value Reference Range Interpretation Comments LACTATE DEHYDROGENASE (BEAKER) (test 555 U/L 125-220 H code = 635) Recreation Programmer ID - BSRETICULOCYTE [id number] 14:12:00 Test Item Value Reference Range Interpretation Comments RETICULOCYTE COUNT PCT (BEAKER) (test 2.7 % 0.5-1.7 H code = 575) Recreation Programmer ID - [id number], PELVIS, 1 OR 2 [id number] 10:30:00DR Verdeing: Dr. Eric Morel for exam:->LEG PAINBLReason for exam:->HIP PAINBLShouldthis be performed at the bedside?->Yes [facility] 1950 Sex: FFINAL REPORT CLINICAL HISTORY: LEG PAINHIP PAIN TECHNIQUE: AP pelvis COMPARISON: None IMPRESSION: The pelvis appears intact without evidence of fracture or dislocation on the single frontal view. Signed: Sangeeta Garces Verified Date/Time: 11/26/2020 10:30:11 Reading Location: [facility] Radiology Reading Room RAD, CHEST, 1 VIEW, NON [id number] 10:30:00DR HILTONLAKYMeferring: Dr. Eric Morel for exam:->peripheral edemaBLReason for exam:->BLShouldthis be performed at the bedside?->Yes [facility] : 1950 Sex: FFINAL REPORT CLINICAL HISTORY: peripheral edema TECHNIQUE: 1 view of the chest. COMPARISON: 09/25/2019 IMPRESSION: Diffuse bilateral interstitial infiltrates are similar versus slightly increased in prominence. Subpulmonic pleural effusions cannot be excluded. The cardiomediastinal silhouette is magnified by technique. Elevation of the right hemidiaphragm is again seen. Signed: Sangeeta Garces MDReport Verified Date/Time: 11/26/2020 10:30:51 Reading Location: [facility] Radiology Reading Room TROPONIN [id number] 10:27:00 Test Item Value Reference Range Interpretation [...] failure, acidosis, acute neurological disease, and persistent tachyarrhythmia.Recreation Programmer ID - EDASIB-TYPE NATRIURETIC FACTOR (BNP)2020-11-26 10:26:00 Test Item Value Reference Range Interpretation Comments B-TYPE NATRIURETIC PEPTIDE (BEAKER) 114 pg/mL 0-100 H (test code = 700) Recreation Programmer ID - EDASICOMPREHENSIVE METABOLIC [id number] 10:23:00 Test Item Value Reference Range Interpretation [...] S NOT APPLICABLE FOR DIALYSIS PATIEN TS. Recreation Programmer ID - EDASICBC W/PLT COUNT & AUTO [id number] 10:09:00 Test Item Value Reference Range Interpretation [...] 0-1 PERCENT (BEAKER) (test code = 2801) [id number] 10:47:00 Test Item Value Reference Range Interpretation Comments RPR SCREEN (BEAKER) (test code = Nonreactive Nonreactive 420) HEMOGLOBIN [id number] 08:19:00 Test Item Value Reference Range Interpretation Comments HEMOGLOBIN A1C (BEAKER) (test code = 4.4 % 4.3-6.1 368) TSH/FREE T4 IF [id number] 07:41:00 Test Item Value Reference Range Interpretation Comments THYROID STIMULATING HORMONE 1.836 uIU/mL 0.350-4.940 (BEAKER) (test code = 772) Recreation Programmer ID - EDASIVITAMIN B12 AND [id number] 07:41:00 Test Item Value Reference Range Interpretation Comments VITAMIN B12 (BEAKER) (test code = 356 pg/mL 213-816 774) FOLATE (BEAKER) (test code = 362) 12.40 ng/mL >=7.00 Recreation Programmer ID - EDASISARS-COV2/RT-PCR ([facility])2020-10-24 07:10:00 Test Item Value Reference Range Interpretation Comments SARS-COV2/RT-PCR (test Negative Not Detected, Negative, code = 7642175) See external report for linked test SARS-COV-[address] [facility] DENITA (test code = 8662369) Negative result for this test determines that [...] justifying the authorization of the emergency use ofin vitro diagnostic tests for detection and/or diagnosis of COVID-19 is terminated under Section 564(b)(2) of the Act or the EUA is revoked under Section 564(g) of the Act.Testing was performed using the Cheema SARS-CoV-2 assay.Fact Sheet for Healthcare Providers:https://www.Skycheckin.cheema/derrick/RT_SAR L-JfS-0_GKU_Xbbe_Akhpt_21-450543.pdfFact Sheet for Healthcare Patients:https://www.molecular.cheema/s al/EG_RPXG-XlD-6_Fljwmvy_Iycj_Tjcxw_AP_80-593013Q4.pdfPerforming Laboratory:[facility] [place] [address] BASIC METABOLIC [id number] 06:47:00 Test Item Value Reference Range Interpretation [...] S NOT APPLICABLE FOR DIALYSIS PATIEN TS. Recreation Programmer ID - MURALI [id number] 06:47:00 Test Item Value Reference Range Interpretation Comments MAGNESIUM (BEAKER) (test code = 2.0 mg/dL 1.6-2.6 627) Recreation Programmer ID - MURALI [id number] 06:47:00 Test Item Value Reference Range Interpretation Comments PHOSPHORUS (BEAKER) (test code = 2.6 mg/dL 2.3-4.7 604) Recreation Programmer ID - MURALI LLIPID [id number] 06:47:00 Test Item Value Reference Range Interpretation Comments TRIGLYCERIDES (BEAKER) (test code = 58 mg/dL 540) CHOLESTEROL (BEAKER) (test code = 135 mg/dL 631) HDL CHOLESTEROL (BEAKER) (test code 36 mg/dL = 976) LDL CHOLESTEROL CALCULATED (BEAKER) 87 mg/dL (test code = 633) Triglyceride Reference Range: Low Risk <150 Borderline 150-199 High Risk 200- 499 Very High Risk >=500Cholesterol Reference Range: Low Risk <200 Borderline 200-239 High Risk >240HDL Cholesterol Reference Range: Low Risk >=60 High Risk <40LDL Cholesterol Reference Range: Optimal <100 Near Optimal 100-129 Borderline 130-159 High 160-189 Very High >=190 Recreation Programmer ID - PIAYA LCBC W/PLT COUNT & AUTO [id number] 06:07:00 Test Item Value Reference Range Interpretation [...] (BEAKER) (test code = 2801) CT, CTANGIO [id number] 00:46:00DR GOLDYeferring: Dr. Eric Sepulveda Reason for Exam - Click Yes and Enter Reason Below->No [facility] 1950 Sex: FFINAL REPORT EXAM: CT, CT Angio, Brain. CT Carotid Angio CLINICAL HISTORY: Neuro deficit, acute, stroke suspected COMPARISON: Noncontrast head CT 10/23/2020, 3:15 PM. TECHNIQUE: Noncontrast head CT was performed. CT angiogram of the head and neck was performed with intravenous contrast. MIP and volume rendered reformats were obtained. This exam was performed according to our [facility] tmental dose optimization program which includes automated exposure control, adjustment of the mA and/or kV according to patient's size and/or use of iterative reconstructive technique. Stenosis evaluation reported in compliance with NASCET criteria. FINDINGS: Noncontrast CT head: There are mild whitematter microvascular ischemic changes. There is a chronic lacunar infarct in the left caudate head. There is low-attenuation in the left splenium of the corpus callosum and to a lesser extent the left occipital lobe consistent with an evolving acute 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 territory infarct. There is no acute intracranial [...] segment of the left posterior cerebral artery (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). There is good flow related enhancement of the bilateral anterior, bilateral middle and right posterior cerebral arteries and within the basilar artery. Theintracranial and skull base internal carotid arteries as well as the vertebral arteries demonstrate normal flow- related enhancement. There is no aneurysm. CTA neck: The visualized aortic arch and greatvessel origins are unremarkable except for mild calcific [...] is diffuse interlobular septal thickening in the visualizedlungs which may represent pulmonary interstitial edema. IMPRESSION: Noncontrast CT head:Mild white matter microvascular ischemic changes. Chronic left caudate head lacunar infarct.Evolving acute left 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 territory infarct.No acute intracranial hemorrhage or mass effect. CTA head: Occlusion of the P2 segment of the left 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. CTA neck:Mild short segment stenoses of the bilateral proximal cervical ICAs.No vessel occlusion or hemodynamically significant stenosis by NASCET criteria.Pulmonary findings which may represent pulmonary interstitial edema. A chest radiograph the helpful for further evaluation.Signed: Amy Villavicencio MDReport Verified Date/Time: 10/24/2020 00:46:37 CT, CAROTID, [id number] 00:46:00DR WINSLOWeferring: Dr. Eric Brownisted Reason for Exam - Click Yes and Enter Reason Below->No [facility] : 1950 Sex: FFINAL REPORT EXAM: CT, CT Angio, Brain. CT Carotid Angio CLINICAL HISTORY: Neuro deficit, acute, stroke suspected COMPARISON: Noncontrast head CT 10/23/2020, 3:15 PM. TECHNIQUE: Noncontrast head CT was performed. CT angiogram of the head and neck was performed with intravenous [...] occipital lobe consistent with an evolving acute 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 territory infarct. There is no acute intracranial hemorrhage, extra-axial fluid collection, mass effect, herniation or hydrocephalus. The basal cisterns are patent. There are bilateral lens replacements. The visualized paranasal sinuses and tympanomastoid cavities are clear. The skull base and calvarium are intact. CTA head: There are mild atherosclerotic calcifications of the bilateral carotid siphons. There is occlusion of the posterior P2 segmentof the left posterior cerebral artery (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). There is good flow related enhancement of the bilateralanterior, bilateral middle and right posterior cerebral arteries [...] left caudate head lacunar infarct.Evolving acute left 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 territory infarct.No acute intracranial hemorrhage or mass effect. CTA head: Occlusion of the P2 segment of the left 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. CTA neck:Mild short segment stenoses of the bilateral proximal cervical ICAs.No vessel occlusion or hemodynamically significant stenosis by NASCET criteria.Pulmonary findings which may represent pulmonary interstitial edema. A chest radiograph the helpful for further evaluation. Signed: Amy Villavicencio MDReport Verified Date/Time: 10/24/2020 00:46:37 C-REACTIVE [id number] 20:16:00 Test Item Value Reference Range Interpretation Comments C-REACTIVE PROTEIN (BEAKER) (test 0.67 mg/dL 0.00-0.50 H code = 676) Recreation Programmer ID - DBMR, BRAIN, WITHOUT [id number] 18:51:00DR HILTONLALReferring: Dr. Eric Sepulveda Reason for Exam - Click Yes and Enter Reason Below->No [facility] : 1950 Sex: FFINAL REPORT MR, BRAIN, WITHOUT CONTRAST INDICATION: Neuro deficit, acute, persistent or progressing TECHNIQUE: Multiplanar, multisequence MR imaging of the brain without intravenous contrast. COMPARISON: CT head 10/23/2020 FINDINGS: Intracranial: There is restricted diffusion and FLAIR hyperintensity within the mesial left temporal and occipital lobes as well as the left splenium of the corpus callosum, consistent with acute 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 territory infarct. No acute intracranial hemorrhage. No mass effect. No hydrocephalus. Visualized intracranial flow voids are of normal course and caliber. Generalized cerebral atrophy with ex vacuo dilatation of the ventricular system proportionate to sulci. Scattered foci of T2 prolongation within the periventricular and subcortical white matter area nonspecific finding commonly attributed to chronic small vessel ischemic disease. Sinuses: No evidence of sinusitis. Mastoids are clear. Orbits: Globes are intact. Calvarium \\T\\ scalp: Unremarkable. I MPRESSION:Acute nonhemorrhagic left 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 territory infarct involving the mesial temporo-occipital lobe and left splenium of the corpus callosum. Signed: Shefali Marcos Verified Date/Time: 10/23/2020 18:51:36 TROPONIN I 2020-10-23 15:58:00 Test [...] failure, acidosis, acute neurological disease, and persistent tachyarrhythmia.Recreation Programmer ID - DBCOMPREHENSIVE METABOLIC [id number] 15:51:00 Test Item Value Reference Range Interpretation [...] S NOT APPLICABLE FOR DIALYSIS PATIEN TS. Recreation Programmer ID - DBCT, BRAIN/STROKE [id number] 15:34:00DR GOLDYeferring: Dr. Eric Morel for exam:->Right visual field deficit [facility] : 1950 Sex: FFINAL REPORT CT, BRAIN/STROKE PROTOCOL INDICATION: TIA, initial examRight visual field deficit TECHNIQUE: Noncontrast axial imaging was obtained from the vertex to the skull base.Axial images were reconstructed using a bone algorithm. DOSE REDUCTION: Dose modulation, iterative reconstruction, and/or weight-based adjustment of the mA/kV was utilized to reduce the radiation dose t o as low as reasonably achievable. COMPARISON: CT [...] occipital lobe is suspicious for acute left 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 territory infarct.2.No acute intracranial hemorrhage.3.Generalized parenchymal volume loss andchronic microvascular changes, progressed since 2015. The findings were discussed with Dr. KATRIN MITCHELL MD on 10/23/2020 3:34 PM. Signed: Shefali Marcos Verified Date/Time: 10/23/2020 15:34:36 PROTHROMBIN [id number] 15:21:00 Test Item Value Reference Range Interpretation [...] is 2.5-3.5 for patients wiht mechanical heart valves.PT/[id number] 15:21:00 Test Item Value Reference Range Interpretation [...] is 2.5-3.5 for patients wiht mechanical heart valves.CBC W/PLT COUNT & AUTO [id number] 15:12:00 Test Item Value Reference Range Interpretation [...] (BEAKER) (test code = 2801) URINALYSIS W/ [id number] 15:23:00 Test Item Value Reference Range Interpretation [...] code = 1521) SOURCE(BEAKER) (test code = 3805) Recreation Programmer ID - [auto]Recreation Programmer ID - techB-TYPE NATRIURETIC FACTOR (BNP)2020-09-27 11:13:00 Test Item Value Reference Range Interpretation Comments B-TYPE NATRIURETIC PEPTIDE (BEAKER) 156 pg/mL 0-100 H (test code = 700) Recreation Programmer ID - DBCOMPREHENSIVE METABOLIC [id number] 10:52:00 Test Item Value Reference Range Interpretation [...] S NOT APPLICABLE FOR DIALYSIS PATIEN TS. Recreation Programmer ID - [id number] 10:52:00 Test Item Value Reference Range Interpretation Comments MAGNESIUM (BEAKER) (test code = 1.7 mg/dL 1.6-2.6 627) Recreation Programmer ID - [id number] 10:52:00 Test Item Value Reference Range Interpretation Comments PHOSPHORUS (BEAKER) (test code = 2.0 mg/dL 2.3-4.7 L 604) Recreation Programmer ID - [id number] 10:41:00 Test Item Value Reference Range Interpretation Comments AMMONIA (BEAKER) (test code = 348) 36 mol/L 18-72 Recreation Programmer ID - DBCBC W/PLT COUNT & AUTO [id number] 10:35:00 Test Item Value Reference Range Interpretation [...] code = 2801) ALPHA FETOPROTEIN (AFP), TUMOR [id number] 17:48:00 Test Item Value Reference Range Interpretation Comments ALPHA-FETOPROTEIN (BEAKER) (test 2.3 ng/mL <10.0 code = 1094) Recreation Programmer ID - BSBASIC METABOLIC [id number] 16:33:00 Test Item Value Reference Range Interpretation [...] S NOT APPLICABLE FOR DIALYSIS PATIEN TS. Recreation Programmer ID - BSHEPATIC FUNCTION [id number] 16:29:00 Test Item Value Reference Range Interpretation [...] (test code = 21 U/L 6-55 347) Recreation Programmer ID - BSCBC W/PLT COUNT & AUTO [id number] 16:17:00 Test Item Value Reference Range Interpretation [...] PERCENT (BEAKER) (test code = 2801) PROTHROMBIN [id number] 16:16:00 Test Item Value Reference Range Interpretation [...] is 2.5-3.5 for patients wiht mechanical heart valves.ALPHA FETOPROTEIN (AFP), TUMOR MARKER 2019-11-15 18:18:00 Test Item Value Reference Range Interpretation Comments ALPHA-FETOPROTEIN (BEAKER) (test 2.8 ng/mL <10.0 code = 1094) Recreation Programmer ID - DBBASIC METABOLIC [id number] 18:13:00 Test Item Value Reference Range Interpretation [...] S NOT APPLICABLE FOR DIALYSIS PATIEN TS. Recreation Programmer ID - DBHEPATIC FUNCTION [id number] 18:13:00 Test Item Value Reference Range Interpretation [...] Specimen slightly (test code = 347) hemolyzed Recreation Programmer ID - DBPROTHROMBIN TIME/[id number] 17:20:00 Test Item Value Reference Range Interpretation [...] is 2.5-3.5 for patients wiht mechanical heart valves.ALPHA FETOPROTEIN (AFP), TUMOR MARKER 2019-10-04 14:22:00 Test Item Value Reference Range Interpretation Comments ALPHA-FETOPROTEIN (BEAKER) (test 2.3 ng/mL <10.0 code = 1094) BASIC METABOLIC [id number] 13:59:00 Test Item Value Reference Range Interpretation [...] DIALYSIS PATIEN TS. Specimen slightly ictericHEPATIC FUNCTION [id number] 13:59:00 Test Item Value Reference Range Interpretation [...] 21 U/L 6-55 347) Specimen slightly ictericPROTHROMBIN [id number] 13:43:00 Test Item Value Reference Range Interpretation [...] is 2.5-3.5 for patients wiht mechanical heart valves.CBC W/PLT COUNT & AUTO [id number] 13:37:00 Test Item Value Reference Range Interpretation [...] (BEAKER) (test code = 2801) BASIC METABOLIC [id number] 18:07:00 Test Item Value Reference Range Interpretation [...] DIALYSIS PATIEN TS. Specimen slightly ictericHEPATIC FUNCTION [id number] 18:07:00 Test Item Value Reference Range Interpretation [...] (test code = 347) hemolyzed Specimen slightly ictericPT/[id number] 17:56:00 Test Item Value Reference Range Interpretation [...] is 2.5-3.5 for patients wiht mechanical heart valves.CBC W/PLT COUNT & AUTO [id number] 17:44:00 Test Item Value Reference Range Interpretation [...] (test code = 2801) RAD, CHEST, 2 [id number] 17:15:00Referring: Dr. Eric Morel for exam:->sobFINAL REPORT History: Shortness of breath. FINDINGS: Chest, two views: PA and lateral views of the chest are compared to the patient's prior study performed September 19, 2019. The heart and mediastinum appear stable and of normal size. Pulmonary interstitium remains mildly and diffusely increased. Patchy bilateral pulmonary airspace opacity is present and has increased since the previous study, possibly pneumonia. No large pleural effusions.Bones are unremarkable. IMPRESSION: 1. New patchy bilateral pulmonary airspace opacity, possibly pneumonia. Signed: Esvin Valladares MDReport Verified Date/Time: 09/25/2019 17:15:28 Reading Location: [facility] Radiology Reading Room LACTIC ACID, [id number] 09:40:00 Test Item Value Reference Range Interpretation Comments LACTATE BLOOD VENOUS 2.7 mmol/L 0.5-2.2 H Specime n slightly (2) (BEAKER) (test hemolyzed code = 2872) Specimen slightly ictericCOMPREHENSIVE METABOLIC [id number] 09:31:00 Test Item Value Reference Range Interpretation [...] Specimen slightly ictericCBC W/PLT COUNT & AUTO [id number] 09:24:00 Test Item Value Reference Range Interpretation [...] = 2801) RAD, CHEST, 1 VIEW, NON [id number] 09:00:00Referring: Dr. Eric Morel for exam:->SHORTNESS OF BREATHShould this be performed at the [facility]?->YesFINAL REPORT INDICATION: SHORTNESS OF BREATH COMPARISON: [...] JR Varela Robert MDReport Verified Date/Time: 09/19/2019 09: 00:49 Reading Location: [facility] Radiology Reading Room BLOOD [id number] 01:00:00 Test Item Value Reference Range Interpretation Comments CULTURE (BEAKER) (test No growth in 5 days code = 1095) BLOOD [id number] 01:00:00 Test Item Value Reference Range Interpretation Comments CULTURE (BEAKER) (test No growth in 5 days code = 1095) COMPREHENSIVE METABOLIC [id number] 07:18:00 Test Item Value Reference Range Interpretation [...] APPLICABLE FOR DIALYSIS PATIEN TS. LACTIC ACID, [id number] 06:20:00 Test Item Value Reference Range Interpretation Comments LACTATE BLOOD VENOUS (2) (BEAKER) 1.2 mmol/L 0.5-2.2 (test code = 2872) CBC W/PLT COUNT & AUTO [id number] 06:02:00 Test Item Value Reference Range Interpretation [...] (BEAKER) (test code = 2801) U/S, ABDOMINAL, [id number] 02:23:00Referring: Dr. Eric Oneill limited area? Add [...] with cirrhosis. No focal lesions. Gallbladder: No gal lstones. Diffuse gallbladder wall thickening, measuring 5 mm. No perocholecystic fluid.. No sonographic Chen's sign. Biliary tree: No intrahepatic ductal dilatation. CBD: 4 mm. MPV: 15 mm. A periumbilical collateral vessel is identified. Pancreas: Unremarkable. Right kidney: 11.1 x 5.1 x 4.7 cm. Normal echogenicity. Moderate to large volume ascites is present in the abdomen. The visualized abdominal aorta is normal in caliber. The IVC and Hepatic veins are patent. Impression: Cirrhosis and evidence of portal hypertension, including moderate to large volume ascites. Signed: Dom Tian MDReport Verified Date/Time: 09/11/2019 02:23:37 CT, CHEST, WITHOUT [id number] 18:38:00Referring: Dr. Eric Morel for exam:->ABDOMINAL PAINWhat is the patient's sedation requirement?->No SedationFINAL REPORT TECHNIQUE: CT of the chest WITHOUT intravenous contrast. Dose modulation, iterative reconstruction, and/or weight-based adjustment of the mA/kV was utilized to reduce the radiation dose to as low as reasonably achievable. INDICATION: 69-year-old woman with pneumonia and abdominal pain. COMPARISON: Chest radiograph from earlier same date, abdomen MRI 01/19/2018. FINDINGS: ABSENCE OF INTRAVENOUS CONTRAST DECREASES SENSITIVITY FOR DETECTION OF FOCAL LESIONS AND VASCULAR PATHOLOGY. LINES/TUBES: None. LUNGS AND AIRWAYS: Central airways are patent. Bilateral subpleural reticular opacities with traction bronchiectasis in both lung bases, right greater than left Subcentimeter calcified granuloma in the right middle lobe. PLEURA: The pleural spaces are clear. HEART AND MEDIA STINUM: The visualized thyroid gland is normal. No significant mediastinal, hilar, or axillary lymphadenopathy. Cardiomegaly. No pericardial effusion. Prominent main pulmonary artery measures approximately 3.2 cm in diameter and is suggestive of pulmonary hypertension. SOFT TISSUES AND BONES: Degenerative changes of the visualized spine. Soft tissues are unremarkable. UPPER ABDOMEN: Cirrhosis. Wedge-shaped hypodensities in the spleen, not visualized on prior MRI. Moderate volume ascites. IMPRESSION:Pulmonary findings likely represent an interstitial lung disease such as usual interstitial pneumonia(UIP) or nonspecific interstitial pneumonia (NSIP). Wedge-shaped hypodensities in the spleen, suggestive of infarcts. Cirrhosis with moderate volume ascites. Signed: Sheron Aranda Verified Date/Time: 09/10/2019 18:38:06 Reading Location: [address] Consult Reading Room POCT-LACTIC ACID, [id number] 16:53:00 Test Item Value Reference Range Interpretation Comments POC-LACTIC ACID, 3.1 mmol/L 0.9-1.[address] [facility] [address] (BEAKER) (test [facility] code = 2805) [address] RAD, CHEST, 1 VIEW, NON [id number] 16:48:00Referring: Dr. Eric Morel for exam:->ABDOMINAL PAINShould this be performed at the bedside?->Yes FINAL REPORT EXAM: Frontal chest radiograph HISTORY PROVIDED: Abdominal pain COMPARISON: None available IMPRESSION:There is elevation of the right hemidiaphragm. There are bilateral airspace opacities particularly in the mid and lower lung zones bilaterally, left greater than right which are nonspecific and may represent multifocal pneumonitis, edema, with possible superimposed atelectasis. A CT can be performed for further evaluation. No discernible pneumothorax or large pleural effusion. The cardiac silhouette is partially obscured but appears enlarged. No acute osseous abnorm ality. Degenerative changes of the spine and shoulders are noted. Signed: Tunde Cruz Verified Date/Time: 09/10/2019 16:48:56 Reading Location: [facility] Reading Room [facility] METABOLIC [id number] 16:27:00 Test Item Value Reference Range Interpretation [...] DIALYSIS PATIEN TS. Specimen slightly ictericHEPATIC FUNCTION [id number] 16:27:00 Test Item Value Reference Range Interpretation [...] Specimen slightly ictericCBC W/PLT COUNT & AUTO [id number] 16:15:00 Test Item Value Reference Range Interpretation [...] PERCENT (BEAKER) (test code = 2801) TISSUE [id number] 15:15:00Surgical Pathology Report Case: [id number] Authorizing Provider: Elvira James MD Collected: 08/13/2019 0950 Ordering Location: [facility] Endoscopy Received: 08/13/2019 1421 Services Pathologist: Constantine Linn MD Specimens: A) - Small Bowel, NOS, small bowel biopsy and antrum biopsy B) - Polyp, Colon - Sigmoid, sigmoid polyp - multiple PART A SMALL BOWEL AND GASTRIC ANTRUM BIOPSY:ANTRAL MUCOSA WITH NONSPECIFIC REACTIVE GASTROPATHY.SEPARATELY IDENTIFIED SMALL INTESTINAL MUCOSA WITH PRESERVED VILLOUS ARCHITECTURE.NO GRANULOMAS, DYSPLASIA, OR INVASIVE CARCINOMA SEEN.PART B SIGMOID COLON POLYP (multiple), POLYPECTOMY:HYPERPLASTIC POLYP, MULTIPLE. Signing Pathologist Direct Phone Line: [phone] signed by Constantine Linn MD on 08/14/2019 at 3:15 [id number] colonoscopyA. Small bowel, NOS, small bowel biopsy and antrum biopsy; B. Polyp, colon sigmoid,sigmoid polyp - multipleA. Received in 10% formaldehyde with patient's demographic information and surgical accession number are four nguyen-eng tissue fragments, 0.6 cm in aggregate. Submitted in toto in block A1. B. Received in 10% formaldehyde with patient's demographic information and surgical accession number are multiple nguyen-eng tissue fragments, 0.5 cm in aggregate. Submitted in toto in block B1. HL/plPerformed. [facility], Department of Pathology, [address] [place] [id number], [facility], [facility] of [facility]ology, [address] [place] [address], [facility], Department of Pathology, [address] [place] [address], UYM W/PLT COUNT & AUTO [id number] 07:33:00 Test Item Value Reference Range Interpretation [...] code = 2801) ALPHA FETOPROTEIN (AFP), TUMOR [id number] 19:11:00 Test Item Value Reference Range Interpretation Comments ALPHA-FETOPROTEIN (BEAKER) (test 2.8 ng/mL <10.0 code = 1094) BASIC METABOLIC [id number] 13:49:00 Test Item Value Reference Range Interpretation [...] DIALYSIS PATIEN TS. Specimen slightly ictericHEPATIC FUNCTION [id number] 13:49:00 Test Item Value Reference Range Interpretation [...] Specimen slightly ictericCBC W/PLT COUNT & AUTO [id number] 13:40:00 Test Item Value Reference Range Interpretation [...] PERCENT (BEAKER) (test code = 2801) PROTHROMBIN TIME/[id number] 13:37:00 Test Item Value Reference Range Interpretation [...] is 2.5-3.5 for patients wiht mechanical heart valves.TISSUE [id number] 09:29:00Surgical Pathology Report Case: [id number] Authorizing Provider: Elvira Jaems MD Collected: 08/07/2018 0914 Ordering Location: [facility] Endoscopy Received: 08/07/2018 1134 Services Pathologist: Constantine Linn MD Specimens: A) - Small Bowel, NOS B) - Antrum PART A SMALL INTESTINE, BIOPSY:SMALL INTESTINAL MUCOSA WITH PRESERVED VILLOUS ARCHITECTURE.NO GRANULOMAS, ULCERATION, DYSPLASIA, OR INVASIVE CARCINOMA SEEN.PART B GASTRIC ANTRUM, BIOPSY:MILD CHRONIC INACTIVE GASTRITIS.WARTHIN STARRY STAIN FOR HELICOBACTER IS NEGATIVE. Signing Pathologist Direct Phone Line: [phone] signed by Constantine Linn MD on 08/09/2018 at 9:29 [id number], [id number] screening A.Small bowel. B. Antrum Specimen is received in two containers of formalin both labeled with the patient's information.Specimen A: Labeled "small bowel biopsy" consists of a 0.2 cm fragment of eng tissue submitted in A1.Specimen B: Labeled "antrum" consists of two fragments of eng tissue measuring 0.1 and 0.3 cm, submitted in B1. CG/ew PERFORMED. The following special studies were performed on this case and the interpretation is incorporated in the diagnostic report above:BLOCK B1- GALLO ROCHA [id number] 08:31:00Surgical Pathology Report Case: [id number] Authorizing Provider: Elvira James MD Collected: 01/27/2018 1140 Ordering Location: [facility] Endoscopy Received: 01/27/2018 1533 Services Pathologist: Constantine Linn MD Specimen: Biopsy, Gastric, ANTRAL BX/FORCEP PART A GASTRIC ANTRUM BIOPSY:MILD CHRONIC INACTIVE GASTRITIS.WARTHIN STARRY STAIN FOR HELICOBACTER IS NEGATIVE. Signing Pathologist Direct Phone Line: [phone] signed by Constantine Linn MD on 01/30/2018at 8:31 [id number], [id number] cirrhosis. Gastric antrum biopsy In formalin labeled "biopsy, gastric", description "antral biopsy" are three fragments measuring 0.6 x 0.5 x 0.1 cm in aggregate. Entirelysubmitted A1. DB/bc The following special studies were performed on this case and the interpretationis incorporated in the diagnostic report above:BLOCK A1- GALLO HERNÁNDEZMR, ABDOMEN, [id number] 09:41:00Referring: Dr. Eric Moscoso REPORT History: Portal [...] seen. 2. Splenomegaly with findings of portal hype rtension. 3. Decrease in the partially occlusive thrombus in the main portal and superior mesentericveins. Signed: Lashae Meraz MDReport Verified Date/Time: 01/19/2018 09:41:39 Reading Location: [facility] Diagnostic Imaging Reading Room - [place] [address] -[id number] 08:28:00 Test Item Value Reference Range Interpretation Comments POC-CREATININE 0.7 mg/dL 0.6-1.3 TESTED AT [facility] [address] ([facility]) (test [place] code = 1859) [address] POC-EGFR (HANNAAKER) 83 mL/min/1.73M2 (test code = 1860) MR, ABDOMEN, [id number] 15:45:00Referring: Dr. Eric Morel for Exam:- >cirrhosis, screen for cancer, hx of portal and splenic vein thrombiiiFINAL REPORT MRI OF THE ABDOMEN CLINICAL HISTORY: Cirrhosis TECHNIQUE: Multiplanar and multisequence MR images of the abdomen are obtained before and after intravenous contrast administration. Contrast is administered to evaluate the solid organs. COMPARISON: MRI of the abdomen from 11/24/2016 DISCUSSION: LIVER: Cirrhotic morphology of the [...] and main portal vein. Main portal vein measures 1.6 cm at the level of the splenoportal confluence. BONES AND SOFT TISSUES: No destructive osseous lesion. IMPRESSION: Stable examination when compared to 11/24/2016. No new liver lesion. Cirrhosis, splenomegaly, and findings of portal hypertension. No significant ascites. 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 Signed: Jonn Ac MDReport Verified Date/Time: 07/29/2017 15:45:59 Bev shi Location: [address] Radiology Reading Room [id number] 10:20:00 Test Item Value Reference Range Interpretation Comments POC-CREATININE 0.8 mg/dL 0.6-1.3 TESTED AT [facility] [address] ([facility]) (test [place] code = 1859) [address] POC-EGFR (BEAKER) 72 mL/min/1.73M2 (test code = 1860) TISSUE [id number] 13:53:00Surgical Pathology Report Case: [id number] Authorizing Provider: Elvira James MD Collected: 03/21/2017 0946 Ordering Location: [facility] Endoscopy Received: 03/21/2017 1202 Services Pathologist: Re Engel MD Specimen: Biopsy, Gastric, ANTRAL BX/FORCEP STOMACH, ANTRUM, BIOPSY: - ANTRAL MUCOSA WITH CHRONIC INACTIVE GASTRITIS, MILD MUCOSAL CONGESTION, AND INTESTINAL METAPLASIA [id number] ascitesAntrum gastric biopsyThe specimen is received in a formalin-filled container and labeled with the patient's information and labeled "antral gastric biopsy" and consists of a 0.1 cm fragment of eng soft tissue, submitted entirely A1. CG/plPerformed.The following special studies were performed on this case and the interpretation is incorporated in the diagnostic report above:Warthin Starry stain negative for Helicobacter pylori organisms. [id number] 07:58:00 Test Item Value Reference Range Interpretation Comments POC-POTASSIUM 4.8 meq/L 3.6-5.5 TESTED AT [facility] [address] [facility] ([place] [address] = 1540) CBC W/PLT COUNT & AUTO [id number] 12:57:00 Test Item Value Reference Range Interpretation Comments WHITE BLOOD CELL COUNT ([facility]) 6.4 K/ L 4.0-10.0 (test code = 775) RED BLOOD CELL COUNT ([facility]) 3.89 M/ L 4.00-5.00 L (test code [...] code = 417) 0.00ALPHA FETOPROTEIN (AFP), TUMOR [id number] 12:30:00 Test Item Value Reference Range Interpretation Comments ALPHA-FETOPROTEIN (BEAKER) (test 3.1 ng/mL <10.0 code = 1094) Effective 09/03/2014: Reference Range ChangeNew: <10.0 Previous: 0.0-8.0 HEPATIC FUNCTION [id number] 12:10:00 Test Item Value Reference Range Interpretation [...] = 14 U/L 6-55 347) BASIC METABOLIC [id number] 12:10:00 Test Item Value Reference Range Interpretation [...] S NOT APPLICABLE FOR DIALYSIS PATIEN TS. [id number] 12:01:00 Test Item Value Reference Range Interpretation Comments FIBRINOGEN LEVEL (BEAKER) (test 269 mg/dl 225-434 code = 658) PROTHROMBIN [id number] 12:00:00 Test Item Value Reference Range Interpretation Comments PROTIME (BEAKER) (test code = 14.5 seconds 11.7-14.7 759) INR (BEAKER) (test code = 370) 1.1 <=5.9 RECOMMENDED COUMADIN/WARFARIN INR THERAPY RANGESSTANDARD DOSE: 2.0 - 3.0 Includes: PROPHYLAXIS for venous thrombosis, systemic embolization; TREATMENT for venous thrombosis and/or pulmonary embolus.HIGH RISK: Target INR is 2.5-3.5 for patients with mechanical heart valves.
--- NOTE | 2022-09-30 15:27 | RAD REPORT ---
EXAM DESCRIPTION: CT - Head Brain Wo Cont - 09/30/2022 3:03 pm CLINICAL HISTORY: trauma COMPARISON: Head Brain Wo Cont dated 12/09/2020; Brain Wo Cont dated 12/09/2020 TECHNIQUE: All CT scans are performed using dose optimization technique as appropriate and may inclu de automated exposure control or mA/KV adjustment according to patient size. FINDINGS: No intracranial hemorrhage, hydrocephalus or extra-axial fluid collection.No areas of brai n edema or evidence of midline shift. Chronic small vessel ischemic changes. The paranasal sinuses and mastoids are clear. The calvarium is intact. IMPRESSION: No acute intracranial abnormality.
[2022-09-30 15:44] LABS: Absolute Lymphocytes (CBC) 1.3 K/uL (0.7-4.9); Lymphocytes % 16.2 % (15.3-44.8); MCV 87.3 fL (80-100); MPV 7.9 fL (7.6-11.3); RBC Red Blood Cell Count 3.32 M/uL (3.86-4.86)
[2022-09-30 16:03] LABS: Albumin 2.3 g/dL (3.4-5.0); Bilirubin Total 1.7 mg/dL (0.2-1.0); Potassium 3.6 mmol/L (3.5-5.1); Protein, Total 6.9 g/dL (6.4-8.2)
[2022-09-30 16:21] LABS: Troponin High Sensitivity 6947.4 pg/mL (<58.9)
[2022-09-30] MEDS ORDERED: FUROSEMIDE 20 MG/ 2ML VIAL ONE (16:46)
[2022-09-30] MEDS ORDERED: ASPIRIN 325 MG TAB ONE (16:47)
--- NOTE | 2022-09-30 16:47 | EDPHYS ---
Physician Documentation [facility] Name: Nelda Ramírez Age: 72 yrs Sex: Female : 1950 Arrival Date: 09/30/2022 Time: 14:28 Bed 15 Private MD: Cristi Neal V ED Physician Monica Cortes HPI: 09/30 14:58 This 72 yrs old Female presents to ER via Ambulatory with complaints of sp3 Headache, CONFUSION. 14:58 72-year-old female with history of hypertension, CHF, cirrhosis, kidney disease, prior sp3 hepatic encephalopathy presents to the ED with chief complaint confusion and ground-level fall 2 days ago while coming out of the bathroom and slipping on the floor. Patient denies head injury. Patient's family is bringing her in with concerns of possible high ammonia level he also wanted to be evaluated for possible head injury that patient does not remember. Altered mental status consists mainly of confusion similar to her past mild hepatic encephalopathy events. There is no focal neurological deficit, review of systems negative for any bleeding, facial pain, neck pain, headache, chest pain, shortness of breath, abdominal pain, rash, or any other findings at this time. . Historical: - Allergies: 14:54 Aspirin; ap3 14:54 Cipro; ap3 14:54 PENICILLINS; ap3 - PMHx: 14:54 CHF; Hypertension; Cirrhosis; liver/kidney disease; short term memory loss; ap3 - Immunization history:: Client reports receiving the 2nd dose of the Covid vaccine. - Social history:: Smoking status: Patient denies any tobacco usage or history of. ROS: 15:05 Constitutional: Negative for fever, chills, and weight loss, Eyes: Negative for injury, sp3 pain, redness, and discharge, ENT: Negative for injury, pain, and discharge, Neck: Negative for injury, pain, and swelling, Cardiovascular: Negative for chest pain, palpitations, and edema, Respiratory: Negative for shortness of breath, cough, wheezing, and pleuritic chest pain, Abdomen/GI: Negative for abdominal pain, nausea, vomiting, diarrhea, and constipation, Back: Negative for injury and pain, MS/Extremity: Negative for injury and deformity, Skin: Negative for injury, rash, and discoloration, Psych: Negative for depression, anxiety, suicide ideation, homicidal ideation, and hallucinations, Allergy/Immunology: Negative for hives, rash, and allergies, Endocrine: Negative for neck swelling, polydipsia, polyuria, polyphagia, and marked weight changes, Hematologic/Lymphatic: Negative for swollen nodes, abnormal bleeding, and unusual bruising. 15:05 All other systems are negative. Exam: 15:06 Constitutional: This is a well developed, well nourished patient who is awake, alert, sp3 and in no acute distress. Head/Face: Normocephalic, atraumatic. Eyes: Pupils equal round and reactive to light, extra-ocular motions intact. Lids and lashes normal. Conjunctiva and sclera are non-icteric and not injected. Cornea within normal limits. Periorbital areas with no swelling, redness, or edema. ENT: Nares patent. No nasal discharge, no septal abnormalities noted. External auditory canals are clear. Oropharynx with no redness, swelling, or masses, exudates, or evidence of obstruction, uvula midline. Mucous membranes moist. Neck: Trachea midline, no thyromegaly or masses palpated, and no cervical lymphadenopathy. Supple, full range of motion without nuchal rigidity, or vertebral point tenderness. No Meningismus. Chest/axilla: Normal chest wall appearance and motion. Nontender with no deformity. No lesions are appreciated. Cardiovascular: Regular rate and rhythm with a normal S1 and S2. No gallops, murmurs, or rubs. Normal PMI, no JVD. No pulse deficits. Respiratory: Lungs have equal breath sounds bilaterally, clear to auscultation and percussion. No rales, rhonchi or wheezes noted. No increased work of breathing, no retractions or nasal flaring. Abdomen/GI: Soft, non-tender, with normal bowel sounds. No distension or tympany. No guarding or rebound. No evidence of tenderness throughout. Skin: Warm, dry with normal turgor. Normal color with no rashes, no lesions, and no evidence of cellulitis. MS/ Extremity: Pulses equal, no cyanosis. Neurovascular intact. Full, normal range of motion. Neuro: Awake and alert, GCS 15, oriented to person, place, time, and situation. Cranial nerves II-XII grossly intact. Motor strength 5/5 in all extremities. Sensory grossly intact. Cerebellar exam normal. Normal gait. Psych: Awake, alert, with orientation to person, place and time. Behavior, mood, and affect are within normal limits. Vital Signs: 14:52 BP 133 / 66; Pulse 76; Temp 98.4(O); Pulse Ox 80% on R/A; Weight 104.33 kg; Height 5 ap3 ft. 9 in. (175.26 cm); 15:51 BP 127 / 63; Pulse 92; Resp 20; Pulse Ox 93% on 2 lpm NC; kr3 17:00 BP 123 / 59; Pulse 90; Resp 20; Pulse Ox 98% on 2 lpm NC; kr3 18:00 BP 121 / 52; Pulse 85; Resp 20; Pulse Ox 98% on 2 lpm NC; kr3 14:52 Body Mass Index 33.96 (104.33 kg, 175.26 cm) ap3 MDM: 14:42 Patient medically screened. sp3 15:07 Data reviewed: vital signs, nurses notes, lab test result(s), EKG, radiologic studies. sp3 ED course: 72-year-old female with mild confusion and possible head injury. Will obtain CT scan of the head, laboratory values, and general observation. Differential diagnosis includes hepatic encephalopathy, electrolyte imbalance, and a low chance of closed head injury/ICH. Clinically I am not highly suspicious for ACS, sepsis, shock, TAD, TIA/CVA, or any other critical or concerning findings at this time. Work-up as above and will possibly discharge if work-up is negative and patient's neurological exam remains normal and baseline.. 16:43 ED course: CT scan of the head is negative. Troponin shows almost 7000. Repeat EKG sp3 demonstrates no ST/T changes concerning for ischemia. BNP is also elevated. Patient does have a 2 L oxygen requirement. We will start with aspirin 325 mg p.o. and Lasix 20 mg IV. Further medications per cardiology who has been paged for this NSTEMI patient. Admit to hospitalist service. I have spoken to family as well as sister via phone who is on board with the plan.. 17:53 ED course: Discussed with cardiology Dr. Patino who advised to keep patient n.p.o. sp3 after midnight and start heparin drip for a.m. catheterization. These orders have been added and communicated to the nursing staff.. 09/30 14:44 Order name: CBC with Diff; Complete Time: 16:28 sp3 09/30 14:44 Order name: CMP; Complete Time: 16:28 sp3 09/30 14:44 Order name: Lipase; Complete Time: 16:28 sp3 09/30 14:44 Order name: AMMONIA; Complete Time: 16:28 sp3 09/30 14:56 Order name: BNP; Complete Time: 16:28 sp3 09/30 14:56 Order name: Troponin High Sensitivity; Complete Time: 16:28 sp3 09/30 17:31 Order name: SARS RAPID em1 09/30 17:52 Order name: PT-INR sp3 09/30 17:52 Order name: Ptt, Activated sp3 09/30 18:38 Order name: SARS-COV-2 Antigen Rapid EDMS 09/30 18:41 Order name: Protime (+INR) EDMS 09/30 18:41 Order name: PTT, Activated Partial Thromb EDMS 09/30 22:57 Order name: Protime (+INR) EDMS 09/30 23:13 Order name: Troponin High Sensitivity EDMS 09/30 14:44 Order name: IV Saline Lock; Complete Time: 15:34 sp3 09/30 14:44 Order name: Labs collected and sent; Complete Time: 15:34 sp3 09/30 14:44 Order name: CT Head Brain wo Cont sp3 09/30 14:48 Order name: Head Brain Wo Cont; Complete Time: 16:28 EDMS 09/30 14:56 Order name: EKG - Nurse/Tech; Complete Time: 15:46 sp3 09/30 23:53 Order name: Ptt, Activated ha1 10/01 00:19 Order name: PTT, Activated Partial Thromb EDMS 10/01 02:55 Order name: Ptt, Activated ha1 10/01 03:24 Order name: CBC with Automated Diff EDMS 10/01 03:26 Order name: PTT, Activated Partial Thromb EDMS 10/01 03:46 Order name: Basic Metabolic Panel EDMS 10/01 06:43 Order name: Ptt, Activated ha1 10/01 08:18 Order name: PTT, Activated Partial Thromb EDMS Administered Medications: 16:54 Drug: Lasix (furosemide) 20 mg Route: IVP; Site: right forearm; kr3 18:29 Follow up: Response: No adverse reaction bp 17:04 Drug: Aspirin 325 mg Route: PO; kr3 18:29 Follow up: Response: No adverse reaction bp 18:55 Drug: Heparin (PA Drip) 12 units/kg/hr - (HEParin 00045 units, D5W 500 ml) kr3 {Co-Signature: bp (Pascual Navarro RN).} {Note: 5K UNIT BOLUS GIVEN PER DR CORTES.} Route: IV; Rate: calculated rate; Site: right forearm; Disposition Summary: 09/30/22 16:46 Hospitalization Ordered Hospitalization Status: Inpatient Admission sp3 Provider: Cristi Neal sp3 Condition: Stable sp3 Problem: new sp3 Symptoms: are unchanged sp3 Bed/Room Type: Standard sp3 Location: Telemetry/MedSurg (Inpatient)(10/01/22 09:36) eb Room Assignment: [facility](10/01/22 09:36) Diagnosis - Subsequent non-ST elevation (NSTEMI) myocardial infarction sp3 - Acute systolic (congestive) heart failure sp3 Forms: - Medication Reconciliation Form sp3 - SBAR form sp3 Signatures: Dispatcher [employer] EDMS Fadumo Castillo RN RN Renu Rosales RN RN carmen3 Taya Moreland Setul, MD MD sp3 Felicia Phelps RN RN Pascual Joyner RN bp Pascual Navarro RN bp Corrections: (The following items were deleted from the chart) 19:35 16:46 Telemetry/MedSurg (Inpatient) sp3 mw 19:35 16:46 sp3 mw 10/01 09:36 09/30 19:35 BR ER HOLD mw eb 10/01 09:36 09/30 19:35 ERHOLD- mw eb
--- NOTE | 2022-09-30 16:47 | ER ---
Nurse's Notes [facility] Name: Nelda Ramírez Age: 72 yrs Sex: Female : 1950 Arrival Date: 09/30/2022 Time: 14:28 Bed 15 Private MD: Cristi Neal V Diagnosis: Subsequent non-ST elevation (NSTEMI) myocardial infarction;Acute systolic (congestive) heart failure Presentation: 09/30 14:52 Chief complaint: Patient states: she fell 2 days ago, where she slid down onto her ap3 bottom and doesn't know if she hit her head. patient comes to the ED today complaining of a headache and stating she "just doesn't feel right". Coronavirus screen: At this time, the client does not indicate any symptoms associated with coronavirus-19. Ebola Screen: No symptoms or risks identified at this time. Initial Sepsis Screen: Does the patient meet any 2 criteria? No. Patient's initial sepsis screen is negative. Does the patient have a suspected source of infection? No. Patient's initial sepsis screen is negative. Risk Assessment: Do you want to hurt yourself or someone else? Patient reports no desire to harm self or others. Onset of symptoms was September 28, 2022. 14:52 Method Of Arrival: Ambulatory ap3 14:52 Acuity: SERGIO 3 ap3 14:54 Note patient placed on 2liters nasal canula, where her Sp02 recovered to 98%. provider ap3 notifed. Triage Assessment: 14:56 Headache History: The patient has had previous headaches and this one is similar to ap3 previous episodes. General: Appears uncomfortable, Behavior is quiet, Reports fatigue for feeling "off". Pain: Complains of pain in head Pain currently is 4 out of 10 on a pain scale. Pain began gradually. Neuro: Level of Consciousness is awake, alert, obeys commands, Oriented to person, place, time, situation, Appropriate for age Speech is normal. Cardiovascular: Patient's skin is warm and dry. Respiratory: Airway is patent Respiratory effort is even, unlabored, Respiratory pattern is regular, symmetrical. 10/01 06:44 Pain: Also complains of. ha1 Historical: - Allergies: 09/30 14:54 Aspirin; ap3 14:54 Cipro; ap3 14:54 PENICILLINS; ap3 - PMHx: 14:54 CHF; Hypertension; Cirrhosis; liver/kidney disease; short term memory loss; ap3 - Immunization history:: Client reports receiving the 2nd dose of the Covid vaccine. - Social history:: Smoking status: Patient denies any tobacco usage or history of. Screenin:56 Humpty Dumpty Scale Fall Assessment Tool (age< 18yrs) Age 13 years and above (1 pt). ap3 Abuse screen: Denies threats or abuse. Nutritional screening: No deficits noted. Tuberculosis screening: No symptoms or risk factors identified. Assessment: 15:48 General: Appears comfortable, Behavior is calm, cooperative, appropriate for age. Pain: kr3 Complains of pain in headache. Neuro: Level of Consciousness is awake, alert, obeys commands, Oriented to person, place, time, situation. Cardiovascular: Patient's skin is warm and dry. Respiratory: Airway is patent Respiratory effort is even, unlabored, Respiratory pattern is regular, symmetrical, hypoventilation patient is requiring 2LPM to keep oxygen saturation in the 90's. GI: No signs and/or symptoms were reported involving the gastrointestinal system. : No signs and/or symptoms were reported regarding the genitourinary system. EENT: No signs and/or symptoms were reported regarding the EENT system. Derm: No signs and/or symptoms reported regarding the dermatologic system. Musculoskeletal: No deficits noted. 16:48 Reassessment: No changes from previously documented assessment. Patient and/or family kr3 updated on plan of care and expected duration. Pain level reassessed. Patient is alert, oriented x 3, equal unlabored respirations, skin warm/dry/pink. 17:48 Reassessment: No changes from previously documented assessment. Patient and/or family kr3 updated on plan of care and expected duration. Pain level reassessed. Patient is alert, oriented x 3, equal unlabored respirations, skin warm/dry/pink. 18:59 Reassessment: heprin drip started, labs due at 2300 per protocol. kr3 Vital Signs: 14:52 BP 133 / 66; Pulse 76; Temp 98.4(O); Pulse Ox 80% on R/A; Weight 104.33 kg; Height 5 ap3 ft. 9 in. (175.26 cm); 15:51 BP 127 / 63; Pulse 92; Resp 20; Pulse Ox 93% on 2 lpm NC; kr3 17:00 BP 123 / 59; Pulse 90; Resp 20; Pulse Ox 98% on 2 lpm NC; kr3 18:00 BP 121 / 52; Pulse 85; Resp 20; Pulse Ox 98% on 2 lpm NC; kr3 14:52 Body Mass Index 33.96 (104.33 kg, 175.26 cm) ap3 ED Course: 14:28 Patient arrived in ED. as 14:28 Cristi Neal MD is Private Physician. as 14:33 Monica Cortes MD is Attending Physician. sp3 14:35 Pascual Navarro, RN is Primary Nurse. bp 14:54 Triage completed. ap3 14:56 Patient has correct armband on for positive identification. Bed in low position. Call ap3 light in reach. Side rails up X2. Adult w/ patient. 14:57 Arm band placed on right wrist. ap3 15:03 CT Head Brain wo Cont Sent. bp 15:05 Head Brain Wo Cont In Process Unspecified. EDMS 15:30 Inserted saline lock: 22 gauge in right forearm, using aseptic technique. Blood bp collected. 16:20 Notified ED physician of a critical lab result(s). troponin 6947.[address] mayank Cortes. 16:46 Cristi Neal MD is Hospitalizing Provider. sp3 10/01 06:44 No provider procedures requiring assistance completed. Patient admitted, IV remains in ha1 place. Administered Medications: 09/30 16:54 Drug: Lasix (furosemide) 20 mg Route: IVP; Site: right forearm; kr3 18:29 Follow up: Response: No adverse reaction bp 17:04 Drug: Aspirin 325 mg Route: PO; kr3 18:29 Follow up: Response: No adverse reaction bp 18:55 Drug: Heparin (AK Drip) 12 units/kg/hr - (HEParin 11165 units, D5W 500 ml) kr3 {Co-Signature: bp (Pascual Navarro RN).} {Note: 5K UNIT BOLUS GIVEN PER DR CORTES.} Route: IV; Rate: calculated rate; Site: right forearm; Medication: 10/01 06:44 VIS not applicable for this client. ha1 Outcome: 09/30 16:46 Decision to Hospitalize by Provider. sp3 12/16 06:45 Admitted to ER Hold. Please see [facility] for further documentation. ha1 Condition: stable Discharge instructions given to patient, family, Instructed on the need for admit, Demonstrated understanding of instructions. 10:32 Patient left the ED. eb Signatures: Dispatcher [employer] EDLexy Bhagat Brian, RN RN bp Renu Aquino RN RN ap3 Taya Moreland Setul, MD MD sp3 Judi Roman RN RN ha1 Felicia Phelps RN RN kr3 Pascual Navarro RN bp
[2022-09-30 18:37] LABS: SARS-CoV-2 Antigen Rapid Res Negative (Negative)
[2022-09-30 18:41] LABS: Protime INR 1.36
[2022-09-30] MEDS ORDERED: HEPARIN/D5W 25,000 UNIT/500 ML BAG IV ONE (18:51)
[2022-09-30] MEDS ORDERED: HEPARIN 5000 UNIT/ML 1 ML VIAL ONE (18:51)
[2022-09-30] MEDS ORDERED: HEPARIN/D5W 25,000 UNIT/500 ML BAG IV SCH (20:05)
[2022-09-30 22:57] LABS: Protime INR 1.41
[2022-10-01 03:23] LABS: Absolute Lymphocytes (CBC) 0.6 K/uL (0.7-4.9); Hematocrit 28.1 % (36.0-45.0); Lymphocytes % 8.3 % (15.3-44.8); MCV 88.3 fL (80-100); MPV 8.1 fL (7.6-11.3); RBC Red Blood Cell Count 3.19 M/uL (3.86-4.86)
[2022-10-01 03:46] LABS: Potassium 3.9 mmol/L (3.5-5.1)
[2022-10-01] MEDS ORDERED: FUROSEMIDE 20 MG/ 2ML VIAL IV SCH (09:00)
[2022-10-01] MEDS: ASPIRIN EC 81 MG TAB PO SCH (09:00)
[2022-10-01] MEDS ORDERED: FUROSEMIDE 20 MG/ 2ML VIAL ONE (09:51)
[2022-10-01] MEDS ORDERED: ASPIRIN EC 81 MG TAB PO ONE (09:51)
[2022-10-01] MEDS ORDERED: VERAPAMIL HCL 10 MG/4 ML VIAL IV ONE (11:39)
[2022-10-01] MEDS ORDERED: CLOPIDOGREL 75 MG TABLET ONE (11:39)
[2022-10-01] MEDS ORDERED: LIDOCAINE 1% 20 ML MDV ONE (11:39)
[2022-10-01] MEDS ORDERED: HEPA 1000U/500MLS 2,000 UNIT/1,000 ML BAG IV ONE (11:39)
[2022-10-01] MEDS ORDERED: HEPARIN 5000 UNIT/ML 1 ML VIAL ONE (11:39)
[2022-10-01] MEDS ORDERED: NITROGLYCERIN 100 MCG/ML SYR (for cath lab use only) IV ONE (11:40)
[2022-10-01] MEDS ORDERED: ATROPINE SULF 1 MG/10 ML SYR IV ONE (11:40)
[2022-10-01] MEDS ORDERED: NITROGLYCERIN/D5W 25 MG/250 ML BTL IV ONE (11:40)
[2022-10-01] MEDS ORDERED: TICAGRELOR 90 MG TABLET PO ONE (11:40)
[2022-10-01] MEDS ORDERED: HEPARIN 10,000 UNIT/10 ML VIAL IV ONE (11:40)
[2022-10-01] MEDS ORDERED: NA CHLORIDE 0.9% 500 ML ONE (12:22)
[2022-10-01] MEDS ORDERED: FENTANYL CITR 100 MCG/2 ML ONE (12:39)
[2022-10-01] MEDS ORDERED: MIDAZOLAM HCL 2 MG/2 ML INJ ONE (12:40)
--- NOTE | 2022-10-01 12:52 | EKG ---
Test Date: 2022-09-30 Test Time: 15:39:18 Filling Carrier: SHARIF MEASUREMENT RESULTS: Intervals: Rate: 94 OR: 154 QRSD: 108 QT: 384 QTc: 480 [place]: P: 68 OR: 154 QRS: 69 T: 39 INTERPRETIVE STATEMENTS: Normal sinus rhythm Normal ECG Compared to ECG 09/13/2021 13:36:38 No significant changes Electronically Signed On 10-01-22 12:51:38 CONTROLS TECHNICIAN by Paul Medina
--- NOTE | 2022-10-01 12:52 | EKG ---
Test Date: 2022-09-30 Test Time: 16:30:15 Entertainment Director: SHARIF MEASUREMENT RESULTS: Intervals: Rate: 92 NE: 152 QRSD: 106 QT: 372 QTc: 460 [place]: P: 58 NE: 152 QRS: 72 T: 54 INTERPRETIVE STATEMENTS: Normal sinus rhythm with sinus arrhythmia Normal ECG Compared to ECG 09/30/2022 15:39:18 No significant changes Electronically Signed On 10-01-22 12:51:29 COLD STORAGE WORKER by Paul Medina
[2022-10-01] MEDS ORDERED: ASPIRIN 81 MG CHEWABLE TABLET PO ONE (14:45)
--- NOTE | 2022-10-01 15:09 | P.SSS ---
Patient History Date of Service: 10/01/22 Reason for admission: FALLEN History of Present Illness: FRANCO IS A CIRHOSIS PATIENT WHO COMES ACTUALLY FORA FALL. SOMEHOW ER DOCTOR DOES TROPONIN AND IT IS VERY HIGH. SHE HAS NO CHEST PAIN, NO DYSPNEA OR ANY CARDIAC SYMTOMS. DR. INMAN WANTS TO DO CATH FOR HER THIS PM. SHE MAY OR MAY NOT GO HOME AFTER THAT. Allergies Penicillins Allergy (Verified 09/22/15 17:03) Hives Home Medications: Lactulose 30 ml PO DAILY 09/23/19 Rifaximin [Xifaxan] 1 tab PO BID 09/23/19 Spironolactone 25 mg PO DAILY 09/30/22 Torsemide [Soaanz] 20 mg PO DAILY 09/30/22 - Past Medical/Surgical History Diabetic: No -: Pulmonary Edema -: Cirrhosis - Social History Alcohol use: No CD- Drugs: No Caffeine use: Yes Review of Systems 10-point ROS is otherwise unremarkable General: Weakness Physical Examination - Vital Signs Temperature: 98.4 F Blood Pressure: 132/46 Pulse: 98 Respirations: 18 Pulse Ox (%): 92 - Physical Exam General: Oriented x3, Mild distress, Obese HEENT: Atraumatic, PERRLA, Mucous membr. moist/pink, EOMI, Sclerae nonicteric Neck: Supple, 2+ carotid pulse no bruit, No LAD, Without JVD or thyroid abno rmality Respiratory: Clear to auscultation bilaterally, Normal air movement Cardiovascular: Regular rate/rhythm, Normal S1 S2 Gastrointestinal: Normal bowel sounds, No tenderness Musculoskeletal: No tenderness Integumentary: No rashes Neurological: Normal gait, Normal speech, Normal strength at 5/5 x4 extr, Normal tone, Normal affect Lymphatics: No axilla or inguinal lymphadenopathy - Studies Laboratory Data (last 24 hrs) 09/30/22 15:30: Sodium 135 L, Potassium 3.6, BUN 16, Creatinine 1.26 H, Glucose 116 H, Total Bilirubin 1.7 H, AST 61 H, ALT 24, Alkaline Phosphatase 195 H, Lip ase 161 09/30/22 15:30: WBC 8.10, Hgb 9.1 L, Hct 29.0 L, Plt Count 59 L - Diagnosis (Problem(s)) (1) Elevated troponin Current Visit: Yes Status: Acute Plan: ASYMPTOMATIC EKG IS NORMAL. CATH TO BE DONE JUST BEC OF TROOPONIN. DR. INMAN ON CASE. (2) Cirrhosis of liver Current Visit: No Status: Acute - Disposition Disposition: ROUTINE DISCHARGE
[2022-10-01] MEDS ORDERED: FUROSEMIDE 20 MG/ 2ML VIAL IV ONE (17:20)
--- NOTE | 2022-10-01 19:10 | CON ---
Date of Consultation: 10/01/2022 Reason For Consultation: Elevated troponin. History Of Present Illness: This is a 72-year-old female with past medical history of hypertension, liver cirrhosis, dementia. She had a fall 2 days ago. She apparently has not been moving off the ch air, generally very weak. Denied having any chest pain or shortness of breath. Evaluation in the em ergency room, troponin was elevated, but the patient is a very poor historian. Cannot get any histor y from her, and as per family, patient did not complaint of any chest pain. Past Medical History: As outlined above in the HPI. Medications: Refer reconciliation sheet for detailed list. Allergies: PENICILLIN. Family History: No premature coronary artery disease or cancer. Social History: She does not smoke or drink. Does not use any drugs. Review of Systems: All systems reviewed and they are negative except as mentioned in HPI. Physical Examination: Vital Signs: Reviewed. HEENT: Head and Neck; pupils are equal, reactive to light. Intact eye movements. No JVD. No cervi nathan lymphadenopathy. Neck: Supple. Thyroid is not enlarged. Lungs: Clear to auscultation bilaterally. No rhonchi, rales or crackles. No accessory muscle use. Heart: Regular. No extra sounds. Abdomen: Soft, nontender. Bowel sounds positive. No organomegaly. No masses or hernia. No rigidi ty or rebound. Extremities: No clubbing, cyanosis. Trace edema. Skin: No rash. Neurologic: Alert, awake, oriented x3. No acute focal deficits appreciated. Investigations: Troponin peaked at 7337. BUN is 21, creatinine 1.24, hemoglobin is 8.6. Assessment And Recommendation: 1.Elevated troponin suggestive of non-ST elevation myocardial infarction, status post coronary angio gram today and no significant disease was found. This was probably demand ischemia, possible rhabdom yolysis component. We will check her CK level. I gave her an aspirin and obtain an echocardiogram. 2.Acute on chronic congestive heart failure exacerbation. LVEDP is elevated significantly at 23. R ecommend IV Lasix 40 mg q.12 hours. Monitor BUN, creatinine, electrolytes, and please obtain an echo . SR/MODL Voice ID: [id number] Report ID: [id number]
--- NOTE | 2022-10-01 19:24 | OP ---
Surgeon: EDMAR INMAN Procedures Performed: 1.Selective coronary angiogram. 2.Left heart catheterization. Indication: Non-ST elevation myocardial infarction. Access: Right radial artery 6-Canadian closed with TR band. Complications: None. Estimated Blood Loss: Bleeding less than 10 mL. Description Of Procedure: After risks, benefits, and alternatives were explained, the patient agreed to the procedure and signed informed consent. Patient was brought in the cardiac catheterization la boratory and prepped and draped in usual sterile fashion. Then I accessed right radial artery using pediatric micropuncture kit, placed 6-Canadian Slender sheath. Then, took 5-Canadian [place] 4 catheter in the aortic root, engaged left main and the right coronary artery, took standard views and then nette ter was pushed over the wire into the LV. LVEDP was measured and pullback did not record any gradien t. I removed the catheter and sheath and placed TR band with good hemostasis. Findings: 1.Left main is very large and normal. 2.LAD: Large vessel with luminal irregularities. No significant disease in the diagonal branches. 3.Left circumflex: Very large and tortuous and also luminal irregularities. 4.RCA: Very large and dominant and no disease. 5.Elevated LVEDP at 24 mmHg. Conclusion: 1.Mild nonobstructive coronary artery disease. 2.Elevated LVEDP. Recommendations: IV diuretics. SR/MODL Voice ID: [id number] Report ID: [id number]
[2022-10-01] MEDS: LACTULOSE 20 GM/30 ML UCUP PO SCH (20:39)
[2022-10-01] MEDS: Rifaximin 550 MG Tab PO SCH (20:39)
--- NOTE | 2022-10-01 20:50 | RAD REPORT ---
EXAM DESCRIPTION: RAD - Chest Single View - 10/01/2022 8:41 pm CLINICAL HISTORY: DYSPNEA, FOLLOW UP Chest pain. COMPARISON: Chest Single View dated 09/13/2021; Chest Single View dated 12/09/2020; Chest Single View dated 09/23/2019; Chest Pa And Lat (2 Views) dated 07/24/2019 FINDINGS: Portable technique limits examination quality. Moderate bilateral pulmonary opacities are present probably representing pulmonary edema. This may be superimposed on a chronic underlying interstitial lung disease. The heart is mildly enlarged.
[2022-10-02 08:22] LABS: Absolute Lymphocytes (CBC) 0.3 K/uL (0.7-4.9); Hematocrit 25.8 % (36.0-45.0); Lymphocytes % 3.7 % (15.3-44.8); MCV 88.9 fL (80-100); MPV 7.7 fL (7.6-11.3)
[2022-10-02 08:28] LABS: Magnesium 2.5 mg/dL (1.6-2.4); Potassium 4.3 mmol/L (3.5-5.1)
[2022-10-02] MEDS: TORSEMIDE 20 MG TAB PO SCH ×2 (08:32→18:55)
[2022-10-02] MEDS: LACTULOSE 20 GM/30 ML UCUP PO SCH ×3 (09:00→20:26)
[2022-10-02] MEDS ORDERED: LACTULOSE 20 GM/30 ML UCUP PO SCH (09:00)
[2022-10-02] MEDS ORDERED: ASPIRIN EC 81 MG TAB PO SCH (09:00)
[2022-10-02] MEDS ORDERED: INFLUENZA VACCINE (for 6+ mo) 0.5 ML DOSE IMVAC ONE (09:00)
[2022-10-02] MEDS: SPIRONOLACTONE 25 MG TABLET PO SCH (09:03)
[2022-10-02] MEDS: ASPIRIN EC 81 MG TAB PO SCH (09:03)
[2022-10-02] MEDS: Rifaximin 550 MG Tab PO SCH ×2 (09:03→20:26)
[2022-10-02] MEDS ORDERED: LEVALBUTEROL 1.25 MG/3 ML NEB NEB ONE (12:00)
[2022-10-02] MEDS ORDERED: ALBUMIN HUMAN 25% 50 ML IV ONE (15:00)
[2022-10-02] MEDS ORDERED: FUROSEMIDE 20 MG/ 2ML VIAL IV ONE (15:00)
--- NOTE | 2022-10-02 16:38 | P.PN ---
Subjective Date of Service: 10/02/22 Arranging for home O2; O2 sats are 82% on RA. Lethargic but otherwise doing well. Repeat hemoglobin pending Review of Systems 10-point ROS is otherwise unremarkable Physical Examination - Vital Signs Temperature: 97.7 F Blood Pressure: 98/51 Pulse: 94 Respirations: 19 Pulse Ox (%): 97 - Physical Exam General: Alert, In no apparent distress, Oriented x2 HEENT: Atraumatic, PERRLA, EOMI Neck: Supple, JVD not distended Respiratory: Clear to auscultation bilaterally, Normal air movement Cardiovascular: Regular rate/rhythm, Normal S1 S2, No murmurs Gastrointestinal: Normal bowel sounds, Soft and benign, Non-distended, No tenderness Musculoskeletal: No clubbing, No swelling, No tenderness Neurological: Normal speech, Sensation intact, Cranial nerves 3-12 intact, Abnormal strength - Studies Medications List Reviewed: Yes Assessment & Plan - Problems (Diagnosis) (1) CHF with left ventricular diastolic dysfunction, NYHA class 1 Current Visit: No Status: Acute (2) Cirrhosis of liver Current Visit: No Status: Acute (3) Dyspnea Onset Date: 04/16/15 Current Visit: No Status: Acute (4) Pulmonary edema Onset Date: 09/23/15 Current Visit: No Status: Acute - Plan PLAN: 1. Cardiac cath with normal coronaries but elevated LVEDP; diuresed 2. Monitor hemodynamics 3. Lactulose; check ammonia 4. Cardiology consultation appreicated 5. Arrange for home O2 6. Strict I's and O's 7. Repeat CXR 8. Hemoglobin dropped down to 7.5 so we will transfuse 1 unit of packed red b lood cells. Diurese gently. Low-dose beta-glenn therapy as well. 9. Anticipate discharge in a.m. once home oxygen is arranged and if hemoglobin remained stable. Discharge Plan: Home Plan to discharge in: 24 Hours - Advance Directives Does patient have a Living Will: No Does patient have a Durable POA for Healthcare: No - Code Status/Comfort Care Code Status Assessed: Yes Code Status: Full Code Critical Care: No Time Spent Managing PTS Care (In Minutes): 45
[2022-10-02 17:44] LABS: Absolute Lymphocytes (CBC) 0.5 K/uL (0.7-4.9); Hematocrit 24.6 % (36.0-45.0); MCV 89.3 fL (80-100); MPV 7.8 fL (7.6-11.3); RBC Red Blood Cell Count 2.76 M/uL (3.86-4.86)
[2022-10-02] MEDS ORDERED: NA CHLORIDE 0.9% 250 ML ONE (21:30)
[2022-10-03 07:00] LABS: Absolute Lymphocytes (CBC) 0.6 K/uL (0.7-4.9); Hematocrit 26.8 % (36.0-45.0); Lymphocytes % 7.1 % (15.3-44.8); MCV 90.3 fL (80-100); MPV 7.3 fL (7.6-11.3); RBC Red Blood Cell Count 2.97 M/uL (3.86-4.86)
--- NOTE | 2022-10-03 07:24 | RAD REPORT ---
EXAM DESCRIPTION: RAD - Chest Single View - 10/03/2022 5:56 am CLINICAL HISTORY: pneumonia COMPARISON: Portable October 01, portable September 13 TECHNIQUE: AP portable chest image was obtained 10/03/2022 5:56 am in supine position. FINDINGS: Exam is technically limited. Lung volume has increased slightly from most recent comparison. Extensive lung parenchymal opacificat ion remains. Overall pattern is not substantially different from the comparison. Cardiomediastinal silhouette and vasculature are prominent. Pulmonary edema, diffuse bilateral pneumo av or combination of these etiologies can give this appearance. Heart size and vasculature are magni fied when supine positioning. No measurable pleural effusion and no pneumothorax. No acute bony abnor mality seen. No acute aortic findings suspected. IMPRESSION: Extensive bilateral lung parenchymal opacification not substantially different compariso n.
[2022-10-03 07:27] LABS: Magnesium 2.7 mg/dL (1.6-2.4); Potassium 4.1 mmol/L (3.5-5.1)
[2022-10-03 08:08] LABS: Blood Morphology Comment NOT SEEN (NOT SEEN); Platelet Estimate DECR; White Blood Cell Scan OK (OK)
[2022-10-03] MEDS: ASPIRIN EC 81 MG TAB PO SCH (08:18)
[2022-10-03] MEDS: SPIRONOLACTONE 25 MG TABLET PO SCH (08:18)
[2022-10-03] MEDS: LACTULOSE 20 GM/30 ML UCUP PO SCH ×4 (08:19→21:33)
[2022-10-03] MEDS: Rifaximin 550 MG Tab PO SCH (08:19)
[2022-10-03] MEDS ORDERED: ALBUMIN HUMAN 25% 12.5 GM, FUROSEMIDE 100 MG in NA CHLORIDE 0.9% 40 ML IV SCH (11:00)
[2022-10-03] MEDS ORDERED: METOPROLOL TAR 25 MG TAB PO ONE (11:00)
[2022-10-03] MEDS ORDERED: RIVASTIGMINE 9.5 MG/24 HR PATCH TD ONE (11:00)
--- NOTE | 2022-10-03 13:25 | P.PN ---
Subjective Date of Service: 10/03/22 Chief Complaint: WEAK, CONFUSED Subjective: No C/O voiced MS. SINGLETARY HAS END STAGE CIRRHOSIS WITH HEPATIC ENCEPHALOPATHY AND GEN ANASARCA. SHE IS WEAK, SLIGHTLY DYSPNEIC AT REST. I WAS OUT OF TOWN AND SHE WAS SEEN BY HOSPITALIST YESTERDAY. SHE IS SOMEWHAT MORE CONFUSED AND WEAK PER FAMILY TODAY. Review of Systems 10-point ROS is otherwise unremarkable General: Weakness, Malaise Respiratory: Shortness of Breath Physical Examination - Vital Signs Temperature: 98 F Blood Pressure: 111/53 Pulse: 102 Respirations: 20 Pulse Ox (%): 94 - Physical Exam General: Oriented x3, Mild distress, Obese HEENT: Atraumatic, PERRLA, EOMI Neck: Supple, JVD not distended Respiratory: Clear to auscultation bilaterally, Normal air movement Cardiovascular: Regular rate/rhythm, Normal S1 S2 Gastrointestinal: Ascites Musculoskeletal: No tenderness Integumentary: No rashes Neurological: Normal speech, Normal tone, Normal affect Lymphatics: No axilla or inguinal lymphadenopathy - Studies Medications List Reviewed: Yes Assessment And Plan - Current Problems (Diagnosis) (1) Elevated troponin Current Visit: Yes Status: Acute Plan: ASYMPTOMATIC EKG IS NORMAL. CATH TO BE DONE JUST BEC OF CONNOR. DR. INMAN ON CASE. (2) Cirrhosis of liver Current Visit: No Status: Acute (3) Anasarca Current Visit: Yes Status: Chronic Plan: SHE HAS ANASARCA WITH DYSPNEA NOW. 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 SHE IS ALREADY ON MOST TOLERABLE DOSE OF TWO DIURETICS. HER BP IS BORDERLIE ALREADY. I WILL GIVE HER LASIX DRIP WITH ALBUMIN THAT WILL HELP HER IN SHORT RUN. I HAD LONG DISCUSSION WITH TWO DAUGHTERS AND FATHER ABOUT FAILURE OF MEDS AFTER AT LEAST 3 YEARS OF CIRRHOSIS. I ADVISE HOME WITH HOSPICE BUT THEY WANT TRANSFER TO [facility] TO HER LIVER DOCTOR. I AM OKAY WITH SECOND OPINION. HER PROGNOSIS IS POOR WITHOUT LIVER TRANSPLANT. (4) Hepatic encephalopathy Current Visit: Yes Status: Chronic Plan: RAISE LACTULOSE TO QID AND CONTINUE XIFAXAN UNFORTUNATELY THESE MEDS ARE NOT WORKING ANY LONGER HER LIVER IS GETTING WORSE.
[2022-10-03 14:37] LABS: Arterial Blood Carboxyhemoglob 3.2 % (0-1.5); Blood Gas Oxyhemoglobin 90.4 % (94-97); Blood O2 Saturation 94.7 % (92-98.5)
[2022-10-03] MEDS: METOPROLOL TAR 25 MG TAB PO SCH (17:11)
[2022-10-03 18:52] LABS: Blood O2 Saturation 87.1 % (92-98.5)
[2022-10-03 18:53] LABS: Arterial Blood Carboxyhemoglob 3.2 % (0-1.5); Blood Gas Oxyhemoglobin 83.4 % (94-97)
[2022-10-03] MEDS ORDERED: HOME MED [Rifaximin 550 MG Tab] PO SCH (21:00)
[2022-10-04 02:54] VITALS: BMI 35.7
[2022-10-04 04:10] VITALS: BP 116/54; TEMP 98.2
[2022-10-04 04:31] LABS: Absolute Lymphocytes (CBC) 0.7 K/uL (0.7-4.9); Hematocrit 26.4 % (36.0-45.0); Lymphocytes % 9.3 % (15.3-44.8); MCV 90.8 fL (80-100); MPV 8.3 fL (7.6-11.3); RBC Red Blood Cell Count 2.91 M/uL (3.86-4.86)
[2022-10-04] MEDS: METOPROLOL TAR 25 MG TAB PO SCH (05:14)
[2022-10-04 07:14] VITALS: O2SAT 100
[2022-10-04] MEDS ORDERED: RIVASTIGMINE 9.5 MG/24 HR PATCH TD SCH (09:00)
[2022-10-04] MEDS ORDERED: acetaZOLAMIDE 250 MG TAB PO SCH (09:00)
--- NOTE | 2022-10-04 17:59 | P.DS ---
Admission Date: 09/30/22 Discharge Date: 10/04/22 Disposition: HOSPICE-MEDICAL FACILITY Reason for Admission: WEAK, CONFUSED - Problems (1) Elevated troponin Status: Acute (2) Cirrhosis of liver Status: Chronic (3) Anasarca Status: Chronic (4) Hepatic encephalopathy Status: Chronic Brief History of Present Illness: FRANCO IS A CIRHOSIS PATIENT WHO COMES ACTUALLY FORA FALL. SOMEHOW ER DOCTOR DOES TROPONIN AND IT IS VERY HIGH. SHE HAS NO CHEST PAIN, NO DYSPNEA OR ANY CARDIAC SYMTOMS. DR. INMAN WANTS TO DO CATH FOR HER THIS PM. SHE MAY OR MAY NOT GO HOME AFTER THAT. Hospital Course: FRANCO IS NOW END STAGE WITH LIVER FAILURE AND REPSIRATORY FAILURE FROM ANASARCA. AFTER LONG DISCUSSION FOR TWO DAYS FAMILY HAS AGREED FOR HOPSICE AND SHE IS ADMITTED TO HOSPICE NOW. Vital Signs/Physical Exam: Temp Pulse Resp BP Pulse Ox 98.2 F 85 20 116/54 L 100 10/04/22 04:00 10/04/22 05:14 10/04/22 04:00 10/04/22 05:14 10/04/22 04:00 Laboratory Data at Discharge: WBC 7.10 K/uL (4.3-10.9) 10/04/22 04:03 Hgb 8.1 g/dL (12.0-15.0) L 10/04/22 04:03 Hct 26.4 % (36.0-45.0) L 10/04/22 04:03 Plt Count 59 K/uL (152-406) L 10/04/22 04:03 PT 15.5 SECONDS (9.5-12.5) H 09/30/22 22:38 INR 1.41 09/30/22 22:38 APTT Cancelled 10/01/22 13:00 Sodium 137 mmol/L (136-145) 10/04/22 04:03 Potassium 4.0 mmol/L (3.5-5.1) 10/04/22 04:03 BUN 25 mg/dL (7-18) H 10/04/22 04:03 Creatinine 1.24 mg/dL (0.55-1.02) H 10/04/22 04:03 Glucose 137 mg/dL (74-106) H 10/04/22 04:03 Magnesium 2.7 mg/dL (1.6-2.4) H 10/04/22 04:03 Total Bilirubin 1.7 mg/dL (0.2-1.0) H 09/30/22 15:30 AST 61 U/L (15-37) H 09/30/22 15:30 ALT 24 U/L (13-56) 09/30/22 15:30 Alkaline Phosphatase 195 U/L (45-117) H 09/30/22 15:30 Lipase 161 U/L (73-393) 09/30/22 15:30 Home Medications: Lactulose 30 ml PO TID 09/23/19 Rifaximin [Xifaxan] 1 tab PO BID 09/23/19 Spironolactone 50 mg PO DAILY 09/30/22 Torsemide [Soaanz] 20 mg PO DAILY 09/30/22 Aspirin [Aspirin EC 81 MG] 81 mg PO DAILY 10/01/22 Rivastigmine Patch [Exelon 9.5 mg Patch] 9.5 mg TD DAILY 10/01/22 Followup: Cristi Neal MD [Primary Care Provider] -
== END 2022-10-04 08:49 | disposition hospice, inpatient (51) | DRG 286 ==
LOC: ER 14:26 → ERHOLD 17:15 → 4TH 10-01 09:42
PROVIDERS: ADMIT Internal Medicine; ATTEND Internal Medicine
PROC: 4A023N7 Measurement of Cardiac Sampling and Pressure, Left Heart, Percutaneous Approach (ICD-10-PCS; principal; 2022-10-01)
PROC: B2111ZZ Fluoroscopy of Multiple Coronary Arteries using Low Osmolar Contrast (ICD-10-PCS; 2022-10-01)
PROC: 30233N1 Transfusion of Nonautologous Red Blood Cells into Peripheral Vein, Percutaneous Approach (ICD-10-PCS; 2022-10-02)
PROC: 5A09357 Assistance with Respiratory Ventilation, Less than 24 Consecutive Hours, Continuous Positive Airway Pressure (ICD-10-PCS; 2022-10-03)
DX: I11.0 Hypertensive heart disease with heart failure (principal); I50.33 Acute on chronic diastolic (congestive) heart failure; J96.02 Acute respiratory failure with hypercapnia; K76.7 Hepatorenal syndrome; K74.60 Unspecified cirrhosis of liver; I25.10 Atherosclerotic heart disease of native coronary artery without angina pectoris; E88.09 Other disorders of plasma-protein metabolism, not elsewhere classified; K76.82 Hepatic encephalopathy; Z88.1 Allergy status to other antibiotic agents; Z88.6 Allergy status to analgesic agent; Z88.0 Allergy status to penicillin; Z79.82 Long term (current) use of aspirin; Z79.899 Other long term (current) drug therapy; Z20.822 Contact with and (suspected) exposure to COVID-19; W01.0XXA Fall on same level from slipping, tripping and stumbling without subsequent striking against object, initial encounter; Y93.9 Activity, unspecified; Y92.091 Bathroom in other non-institutional residence as the place of occurrence of the external cause
CPT/HCPCS: 36415; 36430; 70450; 71045; 80048; 80053; 82140; 82805; 83690; 83735; 83880; 84484; 85025; 85347; 85610; 85730; 86850; 86900; 86901; 87811; 93005; 93458; 94660; 94760; 96374; 96375; 99285; C1893; J0461; J1644; J1940; J2250; J3010; J7040; J7050; J7614; P9016; P9047; Q9967

== ENCOUNTER 2022-10-04 08:50 | Inpatient (IN) | payer OTHER ==
[2022-10-04 08:57] VITALS: BMI 35.7
[2022-10-04] MEDS ORDERED: SCOPOLAMINE HYDROBROMIDE PATCH TD SCH (09:00)
--- OUTSIDE RECORDS SUMMARY | 2022-10-04 09:05 | XMS REPORT | Continuity of Care Document ---
:1950 Author Organization [facility] t Address [address] [place] [address] Care Team Providers Name Role Phone Asked, No Pcp Primary Care Physician Unavailable ADITI HANSEN Attending Clinician Unavailable ELVIRA JAMES Attending Clinician Unavailable DILIP MUNOZ Attending Clinician Unavailable BASILIO ESTRELLA Attending Clinician Unavailable Elvira James MD Attending Clinician Basilio Boyer Attending Clinician [phone] Peggy GRIFFITH, Daja Hines Attending Clinician Unavailable Juana WILLSON MPH, Radha Ha Attending Clinician [phone] Chelsea Ling MD Attending Clinician Sepideh Liz Attending Clinician [phone] SEPIDEH FIELD Attending Clinician Unavailable RADHA ARIAS Attending Clinician Unavailable RAISSA MATIAS Attending Clinician [...] Expiration Date S jesus MEDICARE A B [id number] 2015 00:00:00 MEDICAID [place] [id number] 2016 2016 [place] 00:[place]00 00:00:00 MEDICARE PART A [id number] \\T\\ B - MEDICARE [facility]-MEDICAID - [id number] 2016 2017 MEDICAID 00:00:00 00:00:00 OUT OF STATE [id number] BCBS - PPO - BCBS Problems Condition [...] Medical 00 Center Hyperbilir Hyperbilir Disease Active [facility] ubinemia ubinemia - [facility] Abnormal Abnormal Disease [facility] 3 [facility] bleeding bleeding 00:00: Medica l 00 Center Urinary Urinary Disease Active [facility] retention retention 3-01 [facility] 00:00: Medical 00 Center Acute Acute Disease Active [facility] hepatic hepatic 2-23 [facility] encephalop encephalop 00:00: Me dical athy athy 00 [place] Decompensa Decompensa Disease Active [facility] jacquelyn liver jacquelyn liver 2-10 [facility] disease disease 00:00: Medical 00 Center NAFLD NAFLD Disease Active [facility] (nonalcoho (nonalcoho 2-10 [place] lic fatty lic fatty 00:00: Medi nathan liver liver 00 Center disease) disease) JOSE MANUEL (acute JOSE MANUEL (acute Disease Active [facility] kidney kidney 2-10 [facility] injury) injury) 00:00: Medical 00 Center Peripheral Peripheral Disease Active [facility] edema edema 2-10 [facility] 00:00: Medical 00 [place] Acute Acute Disease Active [facility] ischemic ischemic 1-08 [facility] 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 00:00: Medica l stroke stroke 00 Center Visual Visual Disease Active [facility] field cut field cut 1-07 Luke s 00:00: Medical 00 [place] Portal Portal Disease Active [facility] vein vein 5-01 [facility] thrombosis thrombosis 00:00: Me dical 00 [place] Iron Iron Disease Active [facility] deficiency deficiency 5-01 [place] anemia anemia 00:00: Medical secondary secondary 00 Cent er to to inadequate inadequate dietary dietary iron iron intake intake SOB SOB Disease Active 2018-[address] [facility] (shortness (shortness 2-10 [place] of breath) of breath) 00:00: Me dical 00 [place] Generalize Generalize Disease Active 2018-[address] d d 1-25 [facility] abdominal abdominal 00:00: [facility] pain pain 00 Center Community Community Disease Active 2018-[address] [facility] acquired acquired 1-25 [facility] bacterial bacterial 00:00: [facility] pneumonia pneumonia 00 Cent er Abnormal Abnormal Disease Active [facility] magnetic magnetic 7-06 [facility] resonance resonance 00:00: [facility] imaging of imaging of 00 Ce nter chest chest Cirrhosis Cirrhosis Disease Active [place] yanelis (HCCode) (HCCode) 1-14 Colleg e 00:00: of 00 Medicin e Postmenopa Postmenopa Disease Active M ethodi usal usal 5-10 st bleeding bleeding 00:00: Hospit a 00 l Screening Screening Disease Active [facility] for cancer for cancer 1-10 [place] 00:00: Medical 00 [place] Fatty Fatty Disease Active [facility] liver liver 7-19 [facility] disease, disease, 00:00: Medica l nonalcohol nonalcohol 00 Ce nter ic ic Acute Acute Disease Active [facility] kidney kidney 1-23 [facility] injury injury 00:00: Medical 00 [place] Acute Acute Disease Active [facility] confusion confusion 1-22 Luke s 00:00: Medical 00 [place] Cirrhosis Cirrhosis Disease Active [facility] of liver of liver 1-20 Assessmen Denise es with with 00:00: t & Plan: Medical ascites [facility] of this note might be different [...] of liver disease. Ascites Ascites Disease Active [facility] St 1-20 [facility] 00:00: t & Plan: Medical [address] [place] [id number] g of this note might be different [...] provided. Immunity Immunity Disease Active Last [facility] status status 1-20 Assessmen Lucindy testing testing 00:00: t & Plan: Medic al 00 [facility] g of this note might be different from the original. Serologie s for HAV, HBV and HCV ordered today to screen for prior exposure to HBV or HCV and vaccinati on for HAV and HBV. Portal Portal Disease Active [facility] St hypertensi hypertensi 1-20 [facility] on on 00:00: t & Plan: Medical [address] [place] [address] g of this note might be different from the original. CT scan in September 2015 revealed large recannuli zed umbilical vein and numerous abdominal and pelvic varices. Treated with propranol ol 60 mg per day and diuretics . Obesity Obesity Disease Active [facility] St 1-20 [facility] 00:00: t & Plan: Medical [facility] g of this note might be different from the original. BMI today 29.86 which places her at risk for fatty liver. Stressed the importanc e of a 10% weight loss over the next 6 months with low carbohydr ate diet and increased exercise. Education al materials and low calorie recipes provided. Fatigue Fatigue Disease Active Last [facility] 1-20 [facility] 00:00: t & Plan: Medical [facility] g of this note might be different from the original. Patient complains of increasin g fatigue over the past few months. TSH ordered to screen for hypothyro id state. Hepatic Hepatic Disease Active [facility]: t & Plan: Medical [facility] g of this note might be different [...] l s to drug Ciproflo Propensi Active [facility] xacin ty to 02-18 [place] adverse 00:00: of reaction 00 Medicin s to e drug Penicill Propensi Active [facility] ins ty to 02-18 [place] adverse 00:00: of reaction 00 Medicin s to e drug CIPROFLO Allergy Active Low Hives [facility] XACIN 2-22 [facility] 00:00: Medical 00 Center Ciproflo Drug Active Hives, Rash, Redness [facility] xacin Allergy Other (See 2-22 at [facility] Comments) 00:00: injection Medi nathan 00 siteOther Center reaction( s): PENICILL Allergy Active Low Hives [facility] INS 1-20 [facility] 00:00: Medical 00 Center Penicill Drug Active Hives, Rash [facility] ins Allergy -20 [facility] 00:00: Medical 00 Center Family History Family Member Diagnosis Comments Start Date Stop Date Source Natural father No Known Problems Met [facility] Natural mother No Known Problems Met [facility] Social History Social Habit Start Date Stop [...] [facility] Alcohol Frequency 00:00:00 00:00:00 [facility] Center Tobacco Comment 2017-03-17 2017-03-17 States she [...] 00:00:00 Medical Center History of tobacco 1995-10-[address] [facility] use 00:00:00 Medical Center Sex Assigned At [address] [place] 00:00:00 00:00:00 Medical Center Smoking Status Start Date Stop Date Source Never smoked tobacco [facility] Former smoker 2015-11-05 00:00:00 2015-11-05 00:00:[address] [facility] Medications Ordered Filled Start Stop Current Ordering Indication Dosage Frequency Signature Comments Components Source Medication Medication Date Date Medication? Clinician (SIG) Name Name rivastigmin 2021-10 Yes 1{patch QD Place [address] [facility] e (EXELON) 1-14 } patch onto Denise es 4.6 mg/24 09:27: the skin Medi nathan hour patch 42 daily. [place] vit 2021-10 Yes Take by [facility] C/E/Zn/sabrina 1-14 mouth. [facility]ukes r/lutein/ze 09:27: Medica l axan 42 [place] (PRESERVISI ON AREDS-2 ORAL) rivastigmin 2021-10 Yes 1{patch QD Place [address] [facility] e (EXELON) -14 } patch onto Denise es 4.6 mg/24 09:27: the skin Medi nathan hour patch 42 daily. [place] vit 2021-10 Yes Take by [facility] C/E/Zn/sabrina 1-14 mouth. [facility]ukes r/lutein/ze 09:27: Medica l axan 42 [place] (PRESERVISI ON AREDS-2 ORAL) torsemide Yes Other 20mg QD Take 1 [facility] (DEMADEX) 8-10 ascites tablet (20 L ukes 20 MG 00:00: mg total) Medical tablet 00 by mouth Center daily. torsemide Yes Other 20mg QD Take 1 [facility] (DEMADEX) 8-10 ascites tablet (20 L ukes 20 MG 00:00: mg total) Medical tablet 00 by mouth Center daily. lactulose Yes Hyperkalemi 20g [id number] Take [address] (CHRONULAC) 6-13 a [id number] mLs (20 g [facility]ukes 10 gram/15 00:00: 3D total) by [facility] mL (15 mL) 00 mouth 3 Center [...] 00 total) by Center tablet mouth daily. lactulose 2022-0 Yes Hyperkalemi 20g Q.[id number] Take [address] (CHRONULAC) 6-13 a [id number] mLs (20 g [facility] 10 gram/15 00:00: 3D total) by dical mL (15 mL) 00 mouth 3 [...] tablet 00 :00 by mouth Center daily. torsemide 2021- No Other 20mg QD Take [address] (DEMADEX) 6-13 08-10 ascites tablet (20 [facility] 20 MG 00:00: 00:00 mg total) Medica l tablet 00 :00 by mouth Center daily. rifAXIMin 2020-10- No Hyperkalemi 550mg Q.5D Take [address] 550 mg Tab 2- 06-13 a tablet [facility]ukes 00:00: 00:00 (550 mg Medical 00 :00 total) by Center mouth 2 (two) times daily. lactulose 2020-10- No Hyperkalemi 20g Q.[id number] Take [address] (CHRONULAC) 2 06-13 a [id number] mLs (20 g [facility] 10 gram/15 00:00: 00:00 3D total) by Dann calvilloical mL (15 mL) 00 :00 mouth 3 Center solution (three) times daily. torsemide 2020-10- No Other 20mg QD Take [address] (DEMADEX) 2- 06-13 ascites tablet (20 [facility] 20 MG 00:00: 00:00 mg total) Medica l tablet 00 :00 by mouth Center daily. spironolact 2020-10- No Hyperkalemi 25mg QD Take 0.[address] one 11-22 a tablets [facility]ukes (ALDACTONE) 00:00: 00:00 (25 mg Med ical 50 MG 00 :00 total) by Center tablet mouth daily. rifAXIMin 2020-10- No Hyperkalemi 550mg Q.5D Take [address] 550 mg Tab 11-22 a tablet [facility]ukes 00:00: 00:00 (550 mg Medical 00 :00 total) by Center mouth 2 (two) times daily. lactulose 2020-10- No Hyperkalemi 20g Q.[id number] Take [address] (CHRONULAC) 11-22- a [id number] mLs (20 g [facility] 10 gram/15 00:00: 00:00 3D total) by rajinderical mL (15 mL) 00 :00 mouth 3 Center solution (three) times daily. torsemide 2020-10- No Other 20mg QD Take [address] (DEMADEX) 11-22 ascites tablet (20 [facility] 20 MG 00:00: 00:00 mg total) Medica l tablet 00 :00 by mouth Center daily. spironolact 2020-10- No Hyperkalemi 25mg QD Take 0.[address] one 11-22 a tablets [facility] (ALDACTONE) 00:00: 00:00 (25 mg Med ical 50 MG 00 :00 total) by Center tablet mouth daily. RifAXIMin 2020-10 Yes 1{tbl} Take 1 Tab [facility] (XIFAXAN) 0-14 by mouth Colleg e 550 MG TABS 13:10: two times o f 18 daily. Medicin e spironolact 2020-10 Yes 100mg Take 100 [facility] one 0-14 mg by [place] (ALDACTONE) 13:10: mouth of 100 MG 18 daily. Medicin tablet e lactulose 2020-10 Yes 20g Take 20 g [place] y[facility]elis (CHRONULAC) 0-14 by mouth 3 Co llege 10 GM/15ML 13:10: times of solution 18 daily. Medicin e furosemide 2020-10- No 20mg Take 20 mg [facility] (LASIX) 20 0-14 10-14 by mouth Franny ege MG tablet 13:10: 00:00 daily. of 07 :00 Medicin e rivastigmin Yes [facility] e 4.6 9-29 College MG/24HR 00:00: of PT24 00 Medicin e enoxaparin 2021- No 40mg QD Inject 0.[address] (LOVENOX) 03-10 02-07 mLs (40 mg Denise es 40 mg/0.4 00:00: 00:00 total) Medic al mL Syrg 00 :00 subcutaneo Center usly nightly. enoxaparin 2021- No 40mg QD Inject 0.[address] (LOVENOX) 03-10 02-07 mLs (40 mg Denise es 40 mg/0.4 00:00: 00:00 total) Medic al mL Syrg 00 :00 subcutaneo Center usly nightly. propranolol 2020- No 60mg Take 60 mg [facility] (INDERAL 12-18 0304 by mouth Gabriela e GABRIEL) 60 MG 14:11: 00:00 daily. of SR capsule 49 :00 Medicin e medroxyPROG 2020- No 20mg Take 20 mg [facility] ESTERone 12-15 by mouth. Colle ge (PROVERA) 00:00: 04:59 of 10 MG 00 :00 Medicin tablet e midodrine Yes TAKE 1 [facility] (PROAMATINE 2-22 TABLET BY Col lege ) 5 MG 00:00: MOUTH of tablet 00 THREE Medicin TIMES e DAILY midodrine 2020- No TAKE 1 [facility] (PROAMATINE 2-22 10-14 TABLET BY Co lle ) 5 MG 00:00: 00:00 MOUTH of tablet 00 :00 THREE Medicin TIMES e DAILY aspirin EC 2021- No 81mg Take 81 mg Jameel 81 MG 10-25 by mouth. College tablet 00:00: 05:59 of 00 :00 Medicin e aspirin EC 2021- No 81mg Take 81 mg [facility] 81 MG 10-25 by mouth. College tablet 00:00: 05:59 of 00 :00 Medicin e aspirin 81 2021- No 81mg QD Take [address] MG chewable 10-25 tablet (81 L ukes tablet 00:00: 23:59 mg total) Medic al 00 :00 by mouth Center daily. aspirin 81 0 2021- No 81mg QD Take [address] MG chewable 10-25 tablet (81 L ukes tablet 00:00: 23:59 mg total) Medic al 00 :00 by mouth Center daily. furosemide Yes 20mg Take 20 mg [facility] (LASIX) 20 1-12 by mouth Colle ge MG tablet 19:21: daily. of 17 Medicin e RifAXIMin Yes 1{tbl} Take 1 Tab [facility] (XIFAXAN) 1-12 by mouth Colleg e 550 MG TABS 19:21: two times o f 17 daily. Medicin e spironolact Yes 100mg Take 100 [facility] one 1-12 mg by [place] (ALDACTONE) 19:21: mouth of 100 MG 17 daily. Medicin tablet e lactulose Yes 20g Take 20 g [place] y[facility]el[facility] (CHRONULAC) 1-12 by mouth 3 Co llege 10 GM/15ML 19:21: times of solution 17 daily. Medicin e spironolact Yes 100mg QD Take 100 M ethodi one 5-[address] (ALDACTONE) 10:23: mouth Hospi ta 100 MG 21 daily. l tablet spironolact Yes 100mg QD Take 100 M ethodi one 5-[address] (ALDACTONE) 10:23: mouth Hospi ta 100 MG 21 daily. l tablet propranolol Yes [facility] [place] [facility]AL [facility] [place]) 60 MG 00:00: Hospita 24 hr 00 l capsule propranolol Yes [facility] ([facility]AL [facility] [place]) 60 MG 00:00: Hospita 24 hr 00 l capsule enoxaparin Yes [facility] (LOVENOX) [facility] st 100 mg/mL 00:00: Hospita syringe 00 l enoxaparin Yes [facility] (LOVENOX) [facility] st 100 mg/mL 00:00: Hospita syringe 00 l lactulose Yes [facility] (CHRONULAC) 4-21 st 10 gram/15 00:00: Hospita mL solution 00 l lactulose Yes [facility] (CHRONULAC) 4-21 st 10 gram/15 00:00: Hospita mL solution 00 l XIFAXAN 550 Yes [facility] i mg tablet 4-14 st 00:00: Hospita 00 l XIFAXAN 550 Yes [facility] mg tablet 4-14 st 00:00: Hospita 00 l furosemide Yes [facility] (LASIX) 20 3-13 st mg tablet 00:00: Hospita 00 l furosemide 2017 Yes [facility] (LASIX) 20 3-13 [facility] mg tablet 00:00: Hospita 00 l Immunizations Ordered Immunization Filled Immunization Date Status Commen ts Source Name Name Influenza Hd 2020-08-15 Completed [facility] 00:00:00 of Medicine Zoster Recombinant 2020-08-15 Completed [facility] 00:00:00 of Medicine Influenza Hd 2020-08-15 Completed [facility] 00:00:00 of Medicine Zoster Recombinant 2020-08-15 Completed [facility] 00:00:00 of Medicine Pneumococcal 2019-09-06 Completed [facility] ge Polysaccharide 00:00:00 of Medicin e Pneumococcal 2019-09-06 Completed [facility] ge Polysaccharide 00:00:00 of Medicin e [...] kg Systolic blood 2021-07-30 18:08:00 129 mm[Hg] [facility] pressure Medicine Diastolic blood 2021-07-30 18:08:00 67 mm[Hg] [facility] pressure Medicine Heart rate 2021-07-30 18:08:00 86 /min [facility] Body temperature 2021-07-30 18:08:00 36.78 [facility] HEIGHT 2021-03-17 15:32:00 167.6 cm WEIGHT 2021-03-17 [...] kg Systolic blood 2020-12-18 14:11:00 115 mm[Hg] [facility] pressure Medicine Diastolic blood 2020-12-18 14:11:00 56 mm[Hg] [facility] pressure Medicine Heart rate 2020-12-18 14:11:00 92 /min [facility] Respiratory rate 2020-12-18 14:11:00 17 /min [facility] HEIGHT 2020-12-09 21:00:00 167.6 cm WEIGHT 2020-12-09 [...] kg Systolic blood 2022-08-30 09:26:00 125 mm[Hg] [facility] Diastolic blood 2022-08-30 09:26:00 61 mm[Hg] [facility] Heart rate 2022-08-30 09:26:00 114 /min [facility] Body temperature 2022-08-30 09:26:00 36.56 [facility] Respiratory rate 2022-08-30 09:26:00 18 /min [facility] Body height 2022-08-30 09:26:00 167.6 cm [facility] Body weight 2022-08-30 09:26:00 107.502 kg [facility] BMI 2022-08-30 09:26:00 38.25 kg/m2 [facility] Oxygen saturation in 2022-08-30 09:26:00 95 /min [facility] Arterial blood by Medical Ce nter Pulse oximetry Procedures Procedure Date / Time Performed Performing Clinician [facility] e BASIC METABOLIC PANEL 2022-08-30 10:02:00 Estrella, Line [place] HEPATIC FUNCTION PANEL 2022-08-30 10:02:00 Estrella, Line [facility] CBC W/PLT COUNT & AUTO 2022-08-30 10:02:00 Estrella, Line [facility] CBC W/PLT COUNT & AUTO 2022-08-30 10:02:00 Estrella, Line [facility] MR ABDOMEN WITH & 2022-04-21 10:30:00 Estrella, Line [place] WITHOUT IV CONTRAST Medical Cent er BASIC METABOLIC PANEL 2022-03-29 10:48:00 Estrella, Line [place] HEPATIC FUNCTION PANEL 2022-03-29 10:48:00 Estrella, Line [facility] CBC W/PLT COUNT & AUTO 2022-03-29 10:48:00 Estrella, Line [facility] PROTHROMBIN TIME/INR 2022-03-29 10:48:00 Estrella, Line [place] ALPHA FETOPROTEIN (AFP), 2022-03-29 10:48:00 Estrella, Line Kast [facility] TUMOR MARKER [facility] CBC W/PLT COUNT & AUTO 2022-03-29 10:48:00 Estrella, Line [facility] REPORT OF PROCEDURE - 2021-11-23 11:11:30 Elvira James I [facility] ENDOSCOPY [facility] TISSUE EXAM 2021-11-23 10:57:00 Elvira James [facility] ESOPHAGOGASTRODUODENOSCO 2021-11-23 10:33:00 Elvira James [facility] PY, WITH BIOPSY Medical Center MR ABDOMEN WITH & 2021-10-15 16:22:[address] [facility] WITHOUT IV CONTRAST Medical Cent er Plan of Care Planned Activity Planned Date Details Comments Source Future Scheduled 2029-08-[address] [facility] Test 00:00:00 malignant neoplasm of Medica l Center colon (procedure) [code = 899194051] Future Scheduled 2029-08-[address] [facility] es Test 00:00:00 malignant neoplasm of Medica l Center colon (procedure) [code = 671622445] Future Scheduled 2029-08-[address] [facility] es Test 00:00:00 malignant neoplasm of Medica l Center colon (procedure) [code = 185509174] Future Scheduled 2029-08-[address] [facility]ise es Test 00:00:00 malignant neoplasm of Medica l Center colon (procedure) [code = 679762064] Future Scheduled 2023-08-[address] [facility] Test 00:00:00 Counseling and Medical Cente r Screening (12+) [code = Tobacco Cessation Counseling and Screening (12+)] Future Scheduled 2023-08-[address] [facility] Test 00:00:00 Counseling and Medical Cente r Screening (12+) [code = Tobacco Cessation Counseling and Screening (12+)] Future Scheduled 2022-10-04 COVID-19 VACCINE (#1) [facility] Test 08:54:12 [code = COVID-19 VACCINE (#1)] Future Scheduled 2022-10-04 BREAST CANCER [facility] Test 08:54:12 SCREENING [code = BREAST CANCER SCREENING] Future Scheduled 2022-10-04 COLONOSCOPY SCREENING [facility] Test 08:54:12 [code = COLONOSCOPY SCREENING] Future Scheduled 2022-10-04 SHINGLES VACCINES (1 [facility] Test 08:54:12 of 2) [code = SHINGLES VACCINES (1 of 2)] Future Scheduled 2022-10-04 65+ [facility]AL [facility] Test 08:54:12 VACCINE (1 - PCV) [code = 65+ PNEUMOCOCCAL VACCINE (1 - PCV)] Future Scheduled 2022-10-04 INFLUENZA VACCINE [facility] Test 08:54:12 [code = INFLUENZA VACCINE] Future Scheduled 2022-08-21 HEPATITIS B VACCINES Met [facility] Test 15:08:00 (1 of 3 - 3-dose series) [code = HEPATITIS B VACCINES (1 of 3 - 3-dose series)] Future Scheduled 2022-08-21 COVID-19 VACCINE (#1) [facility] Test 15:08:00 [code = COVID-19 VACCINE (#1)] Future Scheduled 2022-08-21 BREAST CANCER [facility] Test 15:08:00 SCREENING [code = BREAST CANCER SCREENING] Future Scheduled 2022-08-21 COLONOSCOPY SCREENING [facility] Test 15:08:00 [code = COLONOSCOPY SCREENING] Future Scheduled 2022-08-21 SHINGLES VACCINES (1 [facility] Test 15:08:00 of 2) [code = SHINGLES VACCINES (1 of 2)] Future Scheduled 2022-08-21 65+ PNEUMOCOCCAL [facility] Test 15:08:00 VACCINE (1 - PCV) [code = 65+ PNEUMOCOCCAL VACCINE (1 - PCV)] Future Scheduled 2022-08-21 INFLUENZA VACCINE Method [facility] Test 15:08:00 [code = INFLUENZA VACCINE] Future Scheduled 2022-06-17 INFLUENZA VACCINE (#1) [facility] Test 00:00:00 [code = INFLUENZA Medical Ce nter VACCINE (#1)] Future Scheduled 2022-06-17 INFLUENZA VACCINE (#1) [facility] Test 00:00:00 [code = INFLUENZA Medical Ce nter VACCINE (#1)] Future Scheduled 2021-10-[address] [facility] Test 00:00:00 (12+) [code = Medical Center DEPRESSION SCREENING (12+)] Future Scheduled 2021-10-17 FALLS RISK SCREENING [facility] Test 00:00:00 [code = FALLS RISK Medical C enter SCREENING] Future Scheduled 2021-10-[address] [facility] Test 00:00:00 (12+) [code = Medical Center DEPRESSION SCREENING (12+)] Future Scheduled 2021-10-17 FALLS RISK SCREENING [facility] Test 00:00:00 [code = FALLS RISK Medical C enter SCREENING] Future Scheduled 2021-07-30 Screening for [facility] Col lege of Test 13:08:55 malignant neoplasm of Medici ne colon (procedure) [code = 310572159] Future Scheduled 2021-07-30 Screening for [facility] Col [facility]ge of Test 13:08:55 malignant neoplasm of Medici ne breast (procedure) [code = 069191705] Future Scheduled 2021-07-30 COVID-19 Vaccine (1) [facility] of Test 13:08:55 [code = COVID-19 Medicine Vaccine (1)] Future Scheduled 2021-07-30 TETANUS SHOT (ADULT) [facility] of Test 13:08:55 [code = TETANUS SHOT Medicin e (ADULT)] Future Scheduled 2021-07-30 Hepatitis C screening [facility] Test 13:08:55 (procedure) [code = Medicine 852846246] Future Scheduled 2021-07-30 MEDICARE AWV (Initial) [facility] of Test 13:08:55 [code = MEDICARE AWV Medicin e (Initial)] Future Scheduled 2021-07-30 FALL SCREEN [code = [facility] of Test 13:08:55 FALL SCREEN] Medicine Future Scheduled 2021-07-30 Screening for [facility] Col lege of Test 13:08:55 osteoporosis Medicine (procedure) [code = 271340713] Future Scheduled 2021-07-30 ZOSTER VACCINE (2 of [facility] of Test 13:08:55 2) [code = ZOSTER Medicine VACCINE (2 of 2)] Future Scheduled 2021-07-30 FLU VACCINE > 6 MONTHS B [facility] of Test 13:08:55 [code = FLU VACCINE > Medici ne 6 MONTHS] Future Scheduled 2020-10-10 SHINGLES VACCINES ([address] [facility] Test 00:00:00 of 2) [code = SHINGLES Medic al Center VACCINES (2 of 2)] Future Scheduled 2020-10-10 SHINGLES VACCINES ([address] [facility] Test 00:00:00 of 2) [code = SHINGLES Medic al Center VACCINES (2 of 2)] Future Scheduled 2020-09-06 PNEUMOCOCCAL 65+ Y[facility] Test 00:00:00 (2 - PCV) [code = Medical Ce nter PNEUMOCOCCAL 65+ YRS (2 - PCV)] Future Scheduled 2020-09-06 PNEUMOCOCCAL 65+ YRS [facility] Test 00:00:00 (2 - PCV) [code = Medical Ce nter PNEUMOCOCCAL 65+ YRS (2 - PCV)] Future Scheduled 2016-06-[address] [facility] Test 00:00:00 WELLNESS (YEAR 2 or Medical Center FIRST YEAR if no IPPE) [code = MEDICARE ANNUAL WELLNESS (YEAR 2 or FIRST YEAR if no IPPE)] Future Scheduled 2016-06-[address] [facility] 00:[facility]00 WELLNESS (YEAR [facility] or [facility] FIRST YEAR if no IPPE) [code = MEDICARE ANNUAL WELLNESS (YEAR 2 or FIRST YEAR if no IPPE)] Future Scheduled 1969 DTAP/TDAP/TD VACCINES [facility]00 (1 - Tdap) [code = Medical C enter DTAP/TDAP/TD VACCINES (1 - Tdap)] Future Scheduled 1969 DTAP/TDAP/TD VACCINES [facility] 00:00:00 (1 - Tdap) [code = Medical C enter DTAP/TDAP/TD VACCINES (1 - Tdap)] Future Scheduled 1950 COVID-19 VACCINE (#1) [facility] 00:[facility]:00 [code = COVID-[address] VACCINE (#1)] Future Scheduled 1950 COVID-19 VACCINE (#1) [facility] 00:00:00 [code = COVID-[address] VACCINE (#1)] Future Scheduled [address] [facility]00 malignant ne[facility] breast (procedure) [code = 322857523] Future Scheduled [address] [facility] 00:00:00 (combo) [code = CT Medical C enter Colonography (combo)] Future Scheduled 1950 DXA SCAN [code = DXA [facility] 00:00:00 SCAN] [facility] Future Scheduled [address] [facility] 00:[facility]:00 malignant ne[facility] colon (procedure) [code = 960889804] Future Scheduled [address] [facility] 00:00:00 [facility] colon (procedure) [code = 025094540] Future Scheduled 1950 Sigmoidoscopy [code = [facility]] [facility] Future Scheduled [address] [facility] 00:00:00 malignant ne[facility] breast (procedure) [code = 840118177] Future Scheduled [address] [facility] 00:00:00 (combo) [code = CT Medical C enter Colonography (combo)] Future Scheduled 1950 DXA SCAN [code = DXA [facility] 00:00:00 SCAN] [facility] Future Scheduled [address] [facility] 00:00:00 malignant neoplasm of [facility] colon (procedure) [code = 368703812] Future Scheduled [address] [facility] 00:00:00 malignant neoplasm of [facility] colon (procedure) [code = 574491573] Future Scheduled 1950 Sigmoidoscopy [code = [facility] S[facility]oscopy] [facility] Cent[facility] r Future Scheduled COLON CANCER [facility] of Test SCREENING: COLONOSCOPY Medic ine [code = COLON CANCER SCREENING: COLONOSCOPY] Future Scheduled COVID-19 Vaccine [facility] of Test Evaluation [code = Medicine COVID-19 Vaccine Evaluation] Future Scheduled MAMMOGRAM ANNUAL [code B [facility] of Test = MAMMOGRAM ANNUAL] Medicine Future Scheduled TETANUS SHOT (ADULT) [facility] of Test [code = TETANUS SHOT Medicin e (ADULT)] Future Scheduled HEPATITIS C SCREENING [facility] of Test [code = HEPATITIS C Medicine SCREENING] Future Scheduled MEDICARE AWV (Initial) B [facility] of Test [code = MEDICARE AWV Medicin e (Initial)] Future Scheduled FALL SCREEN [code = [facility] of Test FALL SCREEN] Medicine Future Scheduled OSTEOPOROSIS SCREENING B [facility] of Test [code = OSTEOPOROSIS Medicin e SCREENING] Future Scheduled ZOSTER VACCINE (2 of [facility] of Test 2) [code = ZOSTER Medicine VACCINE (2 of 2)] Encounters Start End Encounter Admission Attending Care Care Encounter Source Date/Time Date/Time Type Type Clinicians Facility Department ID 2021-07-25 [facility] [id number] SLE 17:58:27 ADITI 2021-07-25 [facility] [id number] [facility] 07:51:27 PRASUN 2020-12-09 [id number] [facility] 20:16:00 DILIP Med 2023-02-28 2023-02-28 Outpatient EL SLE SLE [id number] SLEH 00:00:00 00:00:00 2022-10-26 2022-10-26 Outpatient JHON ESTRELLA SLE SLE [id number] SLEH 00:00:00 00:00:00 [facility] 2022-09-21 2022-09-21 Outpatient EL SLE SLE [id number] SLEH 00:00:00 00:00:00 2022-08-30 2022-08-[address] [facility] [id number] [facility]00 [facility] 2022-08-[address] [facility] [id number] [facility] 09[facility]30[facility]00 [facility]22-08-30 2022-08-30 Outpatient JHON ESTRELLA SLE SLE [id number] SLE 09:04:28 09:04:28 [facility] 2022-05-26 2022-05-26 [facility] [id number] 00:00[facility]00 00:00:00 [facility] 2022-05-26 2022-05-26 [facility] [id number] 00:00[facility]00 00:00:00 [facility] 2022-04-21 2022-04-21 Outpatient JHON ESTRELLA SLE SLE [id number] SLE 09:05:55 23:59:00 LINE 2022-04-21 2022-04-21 [facility] [id number] 09:00:00 23:59:[address] [facility] 2022-04-21 2022-04-21 [facility] [id number] 09:00[facility]00 23:59:[address] [facility] 2022-03-29 2022-03-[address] [facility] [id number] 09:30:00 10:00:00 Visit Litzy [facility] 2022-03-29 2022-03-[address] [facility] [id number] 09:30:00 10:00:00 Visit Litzy [facility] 2022-03-29 2022-03-29 Outpatient JHON ESTRELLA [facility] SLE [id number] SLEH 08:58:48 08:58:48 [facility] 2021-11-23 2021-11-23 [facility] [id number] 08:55:00 12:10:00 Encounter [facility] 2021-11-23 2021-11-23 [facility] [id number] 08:55:00 12:10:00 Encounter [facility] 2021-11-23 2021-11-23 Outpatient HARI [facility] Surgery [id number] SLE 08:55:00 12:10:00 [facility] 2021-11-23 2021-11-23 Anesthesia [facility] [id number] 10:37:00 11:10:00 Event [facility] 2021-11-23 2021-11-23 Anesthesia [facility] [id number] 10:37:00 11:10:00 Event [facility] 2021-11-23 2021-11-23 [facility] [id number] 10:30:00 11:00:[address] [facility] 2021-11-23 2021-11-23 [facility] [id number] 10:30:00 11:00:00 [facility] 2021-11-23 2021-11-23 Travel [facility] [id number] [facility] 00:[facility]00 00:00:00 [facility] 2021-11-23 2021-11-23 Travel [facility] [id number] [facility] 00:[facility] 00:00:00 [facility] 2021-11-19 2021-11-[address] [facility] [id number] 00:00:00 00:00:00 Only [facility] 2021-11-19 2021-11-19 [facility] [id number] 00:00[facility]00 00:00:00 [facility] 2021-11-19 2021-11-[address] [facility] [id number] 00:00:00 00:00:00 Only [facility] 2021-11-19 2021-11-[address] [facility] [id number] [facility] 00:[facility]00 00:00:00 [facility] 2021-11-18 2021-11-18 Outpatient EL SLE SLE [id number] SLEH 15:05:50 23:59:00 2021-11-18 2021-11-18 [facility] [id number] 13:45:00 23:59:00 Encounter [facility] 2021-11-18 2021-11-18 [facility] [id number] 13:45:00 23:59:00 Encounter [facility] 2021-11-18 2021-11-18 Travel [facility] [id number] [facility] 00:[facility]00 00:00:00 [facility] 2021-11-18 2021-11-18 Travel [facility] [id number] [facility] 00:[facility]00 00:00:00 [facility] 2021-11-14 2021-11-14 [facility] [id number] 00:00:00 00:00:00 [facility] 2021-11-14 2021-11-[address] [facility] [id number] 00:00:00 00:00:00 [facility] 2021-10-23 2021-10-[address] [facility] [id number] 00:00:00 00:00:00 [facility] 2021-10-23 2021-10-23 Orders Rashida, [facility] [id number] 00:00:00 00:00:00 Only [facility] 2021-10-23 2021-10-[address] [facility] [id number] 00:00:00 00:00:00 [facility] 2021-10-23 2021-10-23 Orders Rashida, [facility] [id number] 00:00:00 00:00:00 Only [facility] 2021-10-22 2021-10-[address] [facility] [id number] 00:00:00 00:00:00 [facility] 2021-10-22 2021-10-[address] [facility] [id number] 00:00:00 00:00:00 [facility] 2021-10-15 2021-10-15 [facility] [id number] 13:19:59 23:59:00 Encounter [facility] 2021-10-15 2021-10-15 [facility] [id number] 13:19:59 23:59:00 Encounter [facility] 2021-10-15 2021-10-15 Outpatient JHON FIELD [facility] [id number] SLEH 13:19:59 23:59:00 [facility] 2021-10-13 2021-10-13 Outpatient JHON FIELD SLE SLE [id number] SLEH 00:00:00 00:00:00 [facility] 2021-09-21 2021-09-21 Outpatient JHON FIELD [facility] SLE [id number] SLE 08:26:43 08:26:43 [facility] 2021-08-06 2021-08-06 Outpatient SLEH SLE [id number] [facility]H 00:00:00 00:00:00 2021-07-30 2021-07-30 Office JOE MATIAS [id number] [facility] 12:13:14 13:48:55 Visit RAISSA AMBULATOR [id number] College Y 0.2.7.2.686 of [id number] Medi rosi 300 e 2021-07-14 2021-07-14 Outpatient EL SLE SLE [id number] [facility]H 00:00:00 00:00:00 2021-04-16 2021-04-16 Outpatient SLEH SLEH [id number] [facility]H 00:00:00 00:00:00 2021-03-17 2021-03-17 Emergency ER SLE Emergency [id number] SLEH 15:10:00 15:10:00 2021-03-02 2021-03-02 Emergency ER [facility] Emergency [id number] SLEH 10:16:00 10:16:00 2021-02-28 2021-02-28 Emergency ER SLE Emergency [id number] SLEH 12:34:00 12:34:00 2021-02-25 2021-02-25 Outpatient EL SLE SLE [id number] [facility]H 00:00:00 00:00:00 2021-02-06 2021-02-06 Outpatient EL HARI SLE SLE [id number] [facility]H 00:00:00 00:00:00 PRASUN 2021-02-04 2021-02-04 Outpatient EL SLE SLE [id number] [facility]H 00:00:00 00:00:00 2021-02-04 2021-02-04 Outpatient EL SLEH SLEH [id number] SLEH 00:00:00 00:00:00 2021-01-29 2021-01-29 Outpatient JHON JAMES [facility]H [id number] [facility]H 00:00:00 00:00:00 PRASUN 2021-01-22 2021-01-22 Outpatient HORTENCIA ROOT SLEH [id number] SLEH 00:00:00 00:00:00 PRASUN 2021-01-15 2021-01-15 Outpatient JHON SLE SLE [id number] [facility]H 00:00:00 00:00:00 2020-12-18 2020-12-18 Office JOE Matias [id number] [place] [address] 07:46:17 07:56:17 Visit Raissa AMBULATOR 350.1.13.21 College Y 0.2.7.2.686 of [id number] Medi rosi 300 e 2020-12-05 2020-12-05 Outpatient SLEH SLEH [id number] [facility]H 00:00:00 00:00:00 2020-11-26 2020-11-26 Emergency ER SLE Emergency [id number] SLEH 08:57:00 08:57:00 2020-10-23 2020-10-23 Emergency ER SLE Emergency [id number] SLEH 14:38:00 14:38:00 2020-09-27 2020-09-27 Emergency ER SLEH Emergency [id number] SLEH 10:04:00 10:04:00 2020-08-06 2020-08-06 Outpatient EL SLEH SLEH [id number] SLEH 00:00:00 00:00:00 2020-07-30 2020-07-30 Outpatient EL SLEH SLEH [id number] SLEH 00:00:00 00:00:00 2020-07-28 2020-07-28 Outpatient EL SLEH SLEH [id number] SLEH 00:00:00 00:00:00 2020-02-14 2020-02-14 Outpatient SLEH SLEH [id number] SLEH 00:00:00 00:00:00 [id number] Results Test Description Test Time Test Comments [...] eGFR values code = 1092) m Stage Descript ion Result G1 Normal or high >=90 G2 [...] s not applicable for dialysis jo watkins Felled Seam Operator Chainstitch ID - MITCHHEPATIC FUNCTION [id number] 11:27:10 Test Item Value Reference Range Interpretation [...] (test code = 15 U/L 6-55 347) Felled Seam Operator Chainstitch ID - MITCHCBC W/PLT COUNT & AUTO [id number] 10:56:41 Test Item Value Reference Range Interpretation [...] (BEAKER) (test code = 2801) MR, ABDOMEN, [id number] 13:43:00DR JAMES Referring: Dr. Eric Neal Unlisted Reason for Exam - Click Yes and Enter Reason Below->Yes Unlisted Reason for Exam->Cirrhosis, pancreatic cysts [facility] : 1950 Sex: [...] Patricia Elizabeth Verified Date/Time: 04/24/2022 13:43:29 PROTHROMBIN [id number] 12:16:16 Test Item Value Reference Range Interpretation Comments PROTIME (BEAKER) 14.9 seconds 11.9-14.2 H (test code = 759) INR (BEAKER) (test 1.19 See_Comment [Automat ed message] code = 370) The system 8hands generated this result transmitted ref erence range: [...] (test 2.3 ng/mL <10.0 code = 1094) Felled Seam Operator [employer]stitch ID - ALIZA MBASIC METABOLIC [id number] 11:53:48 Test Item Value Reference Range Interpretation [...] S NOT APPLICABLE FOR DIALYSIS PATIEN TS. Felled Seam Operator [employer]stitch ID - ALIZA Alfaroecimen slightly ictericHEPATIC FUNCTION [id number] 11:53:48 Test Item Value Reference Range Interpretation [...] (test code = 16 U/L 6-55 347) Felled Seam Operator Chainstitch WENDY Ayoubimealex slightly ictericCBC W/PLT COUNT & AUTO [id number] 11:32:39 Test Item Value Reference Range Interpretation [...] PERCENT (BEAKER) (test code = 2801) Tissue [id number] 19:02:37 Test Item Value Reference Range Interpretation Comments Case Report (test code Surgical Pathology = 104) Report Case: [id number] Authorizing Provider: Elvira James MD Collected: 11/23/2021 10:57 AM Ordering Location: [facility] Endoscopy Received: 11/23/2021 03:54 PM Services Pathologist: Clarissa Romo MD Specimen: Stomach, Antrum, random biopsies DIAGNOSIS (test code = [id number] 3220) FuZzEwMzNcZnRuYmpcdWMx IHtccnRmMVxlcGljOTYwMV ctnuQuOPMtnOAzH8Lubpxt LJscVJ1eYJ2wbVddkLKyuD MyEDDrIlSod1sxp109wMZt n4xqYTBFscxuhTt2nZquI8 8jk7A9YbqyD89ucKLjERD5 VURaCHXuoHHiMKMlREL8NZ HzgADhL4jhLRVoZD7kbxhk QXocRXsqLJRoaEJ7MPDnvY ZmQ9IyKFGpWDwsAOKldch0 KrCfGm5rxOOqbHyfHRddQS HjUIViUGhsIJWhZoEiN4PX URIFQXthBS9FNjUVIJTMIQ 2CQ2i8DMXrhfDiPOLoDKND EHUPJVRNMUbTP5COX5CRKK nYIAZnvkDzOWNxSI6RJFfV PWkLI0OIX5KTUmOYLHuROj hdUAbHRi8RYstVZipJILVB REVOVElGSUVEIEJZIFJPVV BHVcQtO6ZDJD6bsNVdYMSn poKHSd1jxPzpPBT7g7btdD YxXHNzdGUxODAwMFxhbnNp ZJRyYmlspcdcXESeGFW0kr DwZPFuQMhnQHZaGGvxSq2v gVHkgMlhPzHtSQGtm5onva VEjuvgkVd1h2siVYFxWyT4 oNTeIXxtI8vlbmTgdDKkWW QpBCf3zF24ZXDhiD5jtSRp ZIedgdXlHmT0CWsdOKItYg W3ECTpxFUxCHAuN0bvBGUx XSrwSZPfZTwjbXBvLSL9aC vbv2T4qWCgoKUalBasRdGc KaKhVjKYo9OeOHj6uRwoO3 AyADGnCqW7rXNlJDTjROtr BMObAOBxntM9qD18HHdwcp R6mYOzl7Azf82wn783xJ0l lWWeXTL9OTEvUMEhxWUjME RyKBZ0XXSzcPPjE4xcTDBs OE4qffoiMAgpIPtbFQQjpB B4FWOcmFCaY7NeGUKuDUpu MJWrvcf2JkUqFk7bwPMzkK gsGZcua8akg1qvlHZsZzk5 XXZpQgUqYcorBSulg1Ihs5 xpZDUavj0hGHE8lPMiyHti o8V6yUYhJTJqsYZxIBCtUQ 0lpBKhWWBttU2yjaqyJEBd YnJkcmhlYWRccGdicmRyZm 5moHyzNET7IKnzS4hqbE5i NdX7SMcoF1wdzO4iIQz1YZ utFDOqmMP9hyC2FJNlzETj X3DhqV8hKFRuMG9byxf6z4 quXIZ4WVbqSOZmAgV1kkD8 NDBcaGVhZGVyeTcyMFxmb2 34DRJ1KxDdYKNfw1QzK2Pt zJokA78khSdxV88cCQHksM gsbD5iuYqpnG2mTcBnLwEp JHuraLwqSO5mZHNbJ3lpyD OcISSrYIPjV7adAsItcN5j vDmrIQlkqsVfOOJpHqk9PJ WskXFtOVQoFma8PFTzKSNv U36becneMWP3kZ2oe9tnh8 WcQEdsMCX7QRFos21gKKcf vqH2EIscDq59NQiqVMS8Iw wtDEZ9aG== CPT Code(s) (test code f6hlrQKtTGTqfSF4UhXnIF = 7713) Ajz7kpa5UzkAFxnDYuKPku zARadfPdah92sCF1dR28XO 0eMJYwLaS7XRBcdkM7Ngn8 FOIrMYScvJYuU645v4wkz2 szdcMevKF0tIzzRWBjvsvn RyD1DDhiTEDukgdnDAk5XS fpFTEjlYJ8VSTohSXaO7Ot XOAiXB0teux9CXN2STvuCF CyNeR1SINojOPdQFLffHgt ZRyup552IYU9PnKhMOJmwj CanYjkfR7wPtOcVRK0UYRa NVxwYXJ9 CLINICAL HISTORY (test m1tahLVgBWSmxKB7VtSlSG code = 3356) Shj1drg9QqiWTraAMgTCvy uEAqzcBytp91aOA8tW88MM 2tMKMgSgI8KZFcrbF9Tey5 SKDmUYHfiKFsW179q0mbx7 labcLtfRN1KUHcPXOnU0Sr NK4kVDKpnWDgS25qmBYuIE G6VKJlQDDysYIzJCSxBET4 JHYioJOoN5okUTXuVU4njq vpJNszEOgvQOArxTZ9OPGe nRAqE8IbKVFzMLskDPNdhz p2IqRbFa3kdTGcdRymMXwr YXJkXGxpMVxyaTFcbGluMV xwbGFpblxmczIwXGNmMSBF x42hwYBoVSJiTQJmbpalHM Vmv5m0iA64wXInhIZbHGdo C5njETZ2 SPECIMEN SOURCE (test z2zkpSUzXCJtlTB7IuAmPG code = 3377) Tqj5dgr9KzbFWubBRtJWfe fKYkwyZsbt62jQT7xE12TC 0xVOZpJnN6ITMmxbD3Uxc7 ZLOeHTOzrGBuT296p3qkc6 heqdHctNB1dXknTRVcemho CrM9GNmdTYKzlyxgPFj1HY kiFUOcrUP7TMBdeEBfF6Lc UESwDC5mltj7PXJ0UXhkDP ZnVaN4JQNryDRmEPGihSdl BXibf755XDK0GhHjVSWdpu ZvyWftnN6aNkJyJLJZoS4m XWZyFKJqwxIauJ6kuOLvoX == GROSS DESCRIPTION (test j8objLJgNRZrlNDuLhHsHL code = 3366) FkZFWnz1qfWLDfiAHrLpVd MzNcZnRuYmpcdWMxXGRlZm Cuc1qbn089lDXgv9biGBIc NhI5dIZyATVzbMIzE758z5 twu3xexuHpiFA1IBJfXOO6 MIetstJwpgA0VAoonMMvFm W2MTekfhTeVBuvgqOefmQa Vlb9VCZfV736UVX6lMrrn8 vmRGE2KEJtPVRmInRvZy5v mPPpL775NHZcBNFYMEZwsE e4UHVnadMusqHpcQUCf326 U670q5tkVVDruvZhiLgVjf tjv1zdP850JEOkuPNsuqDf BrYdPMJynRXrhQE5HCPcKP 3tlcqoDaZgWU2lbwteJzMq BN7wenl2PaVwUQ9zwnqrHn OlHFjaNVIzxeljXMKvg9Cg wycuRU4qQ7Abw7T7mX2qmE WsVRWttWGtVnLaWIIbxj2h mIHsESira3CdZID2qpD8zS YsdHBzJPLnVY04Pzfya9Dy DehtPMF1PUAfuwHlg5Jma9 zcIeXxevPkY2qaO1WxMNBl ENPjMETcKaRlcdBye5Jkw2 QwuBGryZu8p5ysGDXsNRUm xEyxh5dhUWH5OUXfE7W7uE Ncm2bzNKzbBXUtkAV7nhzg OXhvPXRkxtU8atgaHVyjED PbpBK8bfpwSDkfWZKiFzQ1 joprTCneBZQxVVS2ACowy7 79ISV1EIvmXklwVTljXDDj bmNvbnRccGduZGVjXHBsYW luXHBsYWluXGYwXGZzMjRc xGbfbMmarB7qFmMwQpKcDL vjBH3cGYXtA2wslMXzVWEb YZVeT4djZbKhmK4diGdePW ilyxGqIFBeA4SlvxQqJEdc SGTrnt4veXiaYSdjLxJmLQ QgdGhlIHBhdGllbnQncyBu YB6dREWfG8Nwh1Yfb32naq WhJaTyIXWmSNGhc4ZaqBTj sPsvYW81usXnLzSpnzUmJM H1LX7gp25klSO2sNBnzRLv LhMgV30bimBtCH9pFZN9lo tgBwO4jZP5fkDrVyEeS34u uM8rD9YpRNOmm1VlNTozMO 5ucG3iVPdvrQEwXTVwOTFc oMv1PWCgUPJylnHnw9VqkN k0uITgOOguQGFjxC1qrF5r QTEuXHBhclxwYXIgUGlsYX IgQXJndWVsbGVzLCBQQSwg UGTfWPQEE6GlMTTytp9= MICROSCOPIC DESCRIPTION e3bcfJHrWEThcGZ5MmNwOB (test code = 3371) Jgs6sre2GabJMkgSPvMQtk kMXyvnJfnk92aLH7tF11PR 5rQKTnKoX9JZXwooF7Lmi9 XCQbYVWzdHXdI170a0duo5 eytkHcoGA8oOgrTGIiglmj UrH7BAzhAVVgyecaFSc2VF cnJEHdcHQ4ZTDwlHLaJ9Xt HSQoDM1mtgc4SNS2PDzlUJ IbLiM0TCLnhIXkFOHrsZpp VLmee759UUT6ZbSiLSYbff ZgkQqgcR5kMaVcZVGGXQLy a7VnAQWvHAAerf9= [facility] [id number] 19:02:37 Test Item Value Reference Range Interpretation Comments Case Report (test code Surgical Pathology = 104) Report Case: [id number] Authorizing Provider: Elvira James MD Collected: 11/23/2021 10:57 AM Ordering Location: [facility] Endoscopy Received: 11/23/2021 03:54 PM Services Pathologist: Clarissa Romo MD Specimen: Stomach, Antrum, random biopsies DIAGNOSIS (test code = [id number] 3220) FuZzEwMzNcZnRuYmpcdWMx IHtccnRmMVxlcGljOTYwMV opleXyQOOdhPCnW9Wwmszo NFcxMZ3bNO6meIktpGMpzL ZuIUJbXyOpb5ewr270hZIo k6kfKMGFizuwbQb5mJecP3 2wt1W7WbivH34zbYZjLXC3 FGFyBPLvaXXpCNSqDTS2FI NfyRUsN5enSQIgPX5cquzu EXsjGEmaWKHvzFU9UGZeiW WdR0LpJXSwSUmoKXNzmtt0 MbQdXo7yxJZmhNbfJDjyTG YkCDOiPGogOFSlNnMcY8YY RLNPRWzxRS6PTxCXHGSQLR 0TC7u6UUPychVgMAPeODBT LIXYDVVKAUaQA4NNA5JOTO uCGGDaglAkMSVsXQ0XFAvR RLeMV9MCY9AEArIKDGyLNj roPQsRDc2CKttAOqtIMMAZ REVOVElGSUVEIEJZIFJPVV ZHLjGmS4XUBJ0ncRQjQNAf wgAHWu4mtElzVXK2q6pbpZ YxXHNzdGUxODAwMFxhbnNp DCBuPqmeexkwERYxMYG3bb PqEKOeKPjtTYSkPWukOr1t sKMrjMsqScFrILOem0wnoj EUfgulrHf7s2shNZWtCtK1 sYYpIRiaM2ejmzRhnXXdYV CnKBi3cB81LOKutE0rnCUf DVdsdaEqUzW6HJwzTMBzWx D5TMGpdCZuTTDhR9tmVSNd TLdvQPZnWVplaUKgSTQ7mI kwv5G8hSDglDNomCoqPiWe PuZhFsKTa4BgRKn2aAnmK4 AiIREaNuO1gXWmXWVfBTny IXJdFJLmxpN6kH95SAtbyz U5vAXlw7Fqs99si188bO2u uSZrSWY1BNKmCTRrfVLxWB EdKJF5OGQqlONqB6wbMXJx EN4gisrwMIgmRAdgYPToeQ C5YKFzzINuC3ZoKGNtYPyw LNJsmws2IeOnVx1qoOKwcJ yzHSqbq7lqn0fgfNClMel6 AFYpJcHaTaqhOGkjs7Jrm1 fbIQRays7qDWW6qZOvhTpr n2S3gVQzJQHsvINvOQHuVM 8aaGNuBBNjeH8rteayZCBz YnJkcmhlYWRccGdicmRyZm 1tdUpaBVT7XPehO9rovV8f VeD8SLkpA3ehpK4aNGr8KF hqWUUezRD4zdM7GYSsnMAo T4IdhY3kJPDrOV0seal9i8 enHXS8VPxrRVAhOwB0ocQ4 NDBcaGVhZGVyeTcyMFxmb2 32XGT4JrEwWTCeb8YuL8Qv hKimN42fjAluD77qCTBpvX ugaV5duDqczO9bLoOdPlTi FHbmyXowVR0eWUBiD5nzjX OtLRKuGWLaV0hnYhYlpV0m xEpjFEhabfBcGXGpGso2OW RqyIZkRVMaSyj0NITgLXKd R38pvxwqMIR3aX9ly3fhk1 TyBSbtLJY9NSQpq90tSFsk kvY9DGkyOs40WUvsVDC7Sh gnAWS8gL== CPT Code(s) (test code d2croXJjWHSrnJB4GhUdOW = 3357) Jvx1awv0FfdVKyiGIxMXav xQBuwyLhru53oCL9yH99OE 4eKLKeHjM1YHCjtlD3Ehv6 UZXlOJYhqGToG745c1zge4 qdpfFylGK2cCufGKIumkoj StO8BSooZLIoovpmOGh0DZ vcZVCfmDC4OBCqvKIhM7Ox FDHlRO3xcpa9QAW2ZAitCE DkXtB0NVRafINlAREakLtl IRnpw431MEH2YzVeUGVipn JcaRcgqR2ePpLkQOF7XVQy NVxwYXJ9 CLINICAL HISTORY (test a8guuJGeQRTtoWC0DcChAD code = 3351) Tlj8umv6YfnGDrlDGcKKde tXRcdcMowx54yLV3uP38XL 1rGTVqPeY2FMQtehD0Vqg8 DYUjCELogZHvV422d8zgk4 lxhrQypGQ2UHJcDEFdP8Wa CL4sNALaaHOxK27vwWDbJA J8YOLfBZPbjQQrXOWpLXY4 MEBitUSiG1fuDRPmJI1nlz exKUffKLrvYKIbcKJ5UQDe bLHwU3LkSDNrTKrzQKTdps q7RrBvQe5phKUdxWqyTYjq YXJkXGxpMVxyaTFcbGluMV xwbGFpblxmczIwXGNmMSBF c08dnGMgBPSzIYSijicwFQ Dwu0e3rQ15wIYdwQVsDTqw D2zxYWO5 SPECIMEN SOURCE (test z1tpuXPnYQCixYG0EyFmDW code = 3377) Sih1uyg0AcrCDfzNPyZPsj tRNdwkEppc14nSD7zQ72HI 0lNPOaJnX6TWQaoiT2Owu4 TSQiNNVgpINbZ442t1jys3 owdtQccRM4cXfoDDHhryvq DeS6FVwgPWMgqhznMWy7UQ htYLHwhEK9FBQnaFPpK1Wv JEItJZ3rzgd6PDS3YRkdHL ByPkA6TEPujYPtZJPjuEze NDpml845VAW3AyClLDPpya SpcMaplV0iBnBePPTSpU6u ZVCiGSYkpgAsbM0ljHWhsO == GROSS DESCRIPTION (test r9baoYXjVRIabLBbWnMbQP code = 3366) TqKARpc2mdQIVuzABnKjJg MzNcZnRuYmpcdWMxXGRlZm Dik7pub866tUTql6jaUFAn MgF4pJYrKPKlcRPwW916t0 kcg0jfvdXrqPE4HVWaWAK2 CZqhycHizsU9FUgwvGWxEy X6HGnidhVsTMcsseJhwmUs Vqs1ZIIzU065LHR9mIdqs3 osRIF0VVPnTBQxQhTuTv9m pUHvR303XJCrLYJUFKBpfZ x8EKDeyoTrwaKbiCWBs560 U970o7chZCWlyxGbrStPks rpu8bwN919QFKneRFcjtEb ZgXvXLFxhLZdiTJ7YZArFN 7xxnlwTeKaEH3jwvowGqTa FU1xuqc0IiPpZP6zhvokPq WuQOuyGYNhfwryFDNei4Se legfJT1uO8Kem8C6iT7toZ DaECSaaNJjCfSgXLUorl3c tFQtQPsbt8RhFCJ7wkX8uN VokARaKFKrWR97Ikfyx2Ef MzkbHOK0OFCiodUmo0Qcl6 mbPsHpvdZoR1hgE2KxGJPn UTXsCNRaTsSpjuIqw5Jol3 LleJZtaLl7a8pfNMKgSUTb xIjcv2jzXXE5SNNlM9C9iR Srs7klMUayTPHvjIO6gmbm GPawGWSbxyC8rfspJVtgPK BbjGN0dwsrHYczRVHjRvU7 bzbiNCleOHLyTPQ6AIdhh0 00SVF2SIjsXgknYOrmBBGw bmNvbnRccGduZGVjXHBsYW luXHBsYWluXGYwXGZzMjRc bYztaHtxhQ2cHhFrArNzVE ktWB2oMOAeA2xzcPFsEXVa CGXhH2tqQjOzeR4tmYbzFN ldieKoUMVuB7QnelTaAXeg GQYsex6mvBcqQCjyOmBvYH QgdGhlIHBhdGllbnQncyBu TO5aDTPnB5Rht5Eol10hau HcEySaIMGaQGZnv9SzfNLa dMhlHK58jnXiBpRaxgIlOT T2QR3ms40amKW5oQFqyKJj XiUtH07gtaDbGF8yGBO0au rcCbQ4fEW5tjWgOyHtO18y jR2rY2ZpCKGkl4TzWAcmDE 9qsC6aDDmzzSNhXGRqRFFf nBw5DVIoRXIekiMvg6KtcK t8fVZtLAszKGOuvR7yzF4y QTEuXHBhclxwYXIgUGlsYX IgQXJndWVsbGVzLCBQQSwg CJZtGQOVT0QtUMChkz3= MICROSCOPIC DESCRIPTION c7troWShFCOftRT5TtIvZE (test code = 3371) Ewa2acl8CbbENafHFaCXhc vBKzbxYyyg49zPZ6dA60GO 6eZUGiOrB1WHJcixQ8Rjt6 AGByVQVinORuX846k3wnl2 werdRehYQ7eAbhCNSarhen BwI7LGtpJSNrxzgwXGw1FU jyNUUeqVQ0DFNprVHhQ7Zs TRYoIL9rdgx8XIY6YIriDF UcNuM0CDJzvODpRVReyLrb NKbfq216HZO5XbJmMEKgrk MhwDudeK6iTvQtWHBUZALc j1UvJZDgYHLxwv2= [facility] [id number] 19:02:37Surgical Pathology Report Case: [id number] Authorizing Provider: Elvira James MD Collected: 11/23/2021 10:57 AM Ordering Location: [facility] Received: 11/23/2021 03:54 PM Services Pathologist: Clarissa Romo MD Specimen: Stomach, Antrum, random biopsies STOMACH, ANTRUM, BIOPSY: - REACTIVE GASTROPATHY - NO HELICOBACTER PYLORI MICROORGANISM IDENTIFIED BY ROUTINE STAINCC/pl Signing Pathologist Direct Phone Line: [phone] signed by Clarissa Romo MD on 11/25/2021 at 7:02 [id number] varices without bleedingStomach, antrumReceived in formalin labeled the patient's name, accession number and "stomach, antrum" are 4 eng soft tissue fragments measuring up to 0.3 cm in greatest dimension which are filtered and submitted in toto in A1.JO Dumont, HT (ASCP)Performed MR, ABDOMEN, [id number] 12:08:00DR JAMES Referring: Dr. Eric Neal Review PVT, cirrhosis, hcc screening Unlisted Reason for Exam - Click Yes and Enter Reason Below->No Anesthesia:->None Deos the patient have an implanted electronic device?->No [facility] : 1950 Sex: FFINAL [...] MDReport Verified Date/Time: 10/20/2021 12:08:05 Reading Location: [facility] Diagnostic Imaging Reading Room - [facility] F1 1129 Electro nically signed by: TONYA CADENA MD on 10/20/2021 12:08 PMALPHA FETOPROTEIN (AFP), TUMOR [id number] 11:34:32 Test Item Value Reference Range Interpretation Comments ALPHA-FETOPROTEIN (BEAKER) (test 3.0 ng/mL <10.0 code = 1094) Felled Seam Operator Chainstitch ID - ALIZA MBASIC METABOLIC [id number] 11:21:11 Test Item Value Reference Range Interpretation [...] S NOT APPLICABLE FOR DIALYSIS PATIEN TS. Felled Seam Operator Chainstitch ID - ALIZA MSpecimen slightly ictericHEPATIC FUNCTION [id number] 11:21:11 Test Item Value Reference Range Interpretation [...] (test code = 14 U/L 6-55 347) Felled Seam Operator Chainstitch ID Shakir Tapia slightly ictericPROTHROMBIN [id number] 11:06:41 Test Item Value Reference Range Interpretation Comments PROTIME (BEAKER) 15.8 seconds 11.9-14.2 H (test code = 759) INR (BEAKER) (test 1.28 See_Comment [Automat ed message] code = 370) The system 8hands generated this result transmitted ref erence range: <=5.90. The reference range was not used to int erpret this result as normal/abnormal . RECOMMENDED COUMADIN/WARFARIN INR THERAPY RANGESSTANDARD DOSE: 2.0 - 3.0 Includes: PROPHYLAXIS for venous thrombosis, systemic embolization; TREATMENT for venous thrombosis and/or pulmonary embolus.HIGH RISK: Target INR is 2.5-3.5 for patients with mechanical heart valves.CBC W/PLT COUNT & AUTO [id number] 10:58:04 Test Item Value Reference Range Interpretation [...] = 2801) RAD, CHEST, 1 VIEW, NON [id number] 21:17:00DR GOLDYeferring: Dr. Eric Morel for exam:->[facility] : 1950 Sex: FFINAL [...] Verified Date/Time: 03/17/2021 21:17:55 HIGH SENSITIVITY TROPONIN [id number] 20:30:00 Test Item Value Reference Range Interpretation Comments HIGH SENSITIVITY 10 pg/ml See_Comment [Automated message] TROPONIN I (test code = The system which [id number]) generated this result transmitted ref erence range: <=17. Th e reference range was not used to int erpret this result as normal/abnormal . Felled Seam Operator Chainstitch ID - BSThe SPINNERET PERSON STAT High Sensitivity Troponin-I results should be used in conjunctionwith other diagnostic information such as ECG, clinical observations and information, and patient symptoms to aid in the diagnosis of SD.[id number] 20:26:00 Test Item Value Reference Range Interpretation Comments MAGNESIUM (BEAKER) (test code = 1.9 mg/dL 1.6-2.6 627) Felled Seam Operator Chainstitch ID - BSBASIC METABOLIC [id number] 20:26:00 Test Item Value Reference Range Interpretation [...] S NOT APPLICABLE FOR DIALYSIS PATIEN TS. Felled Seam Operator Chainstitch ID - BSSpecimen slightly ictericCBC W/PLT COUNT [...] (BEAKER) (test code = 2801) COMPREHENSIVE METABOLIC [id number] 06:35:00 Test Item Value Reference Range Interpretation [...] S NOT APPLICABLE FOR DIALYSIS PATIEN TS. Felled Seam Operator Chainstitch ID - ALIZA [id number] 06:35:00 Test Item Value Reference Range Interpretation Comments MAGNESIUM (BEAKER) (test code = 2.0 mg/dL 1.6-2.6 627) Felled Seam Operator Chainstitch ID - ALIZA MPROTHROMBIN TIME/[id number] 06:12:00 Test Item Value Reference Range Interpretation Comments PROTIME (BEAKER) 18.1 seconds 11.9-14.2 H (test code = 759) INR (BEAKER) (test 1.56 See_Comment [Automat ed message] code = 370) The system 8hands generated this result transmitted ref erence range: <=5.90. The reference range was not used to int erpret this result as normal/abnormal . RECOMMENDED COUMADIN/WARFARIN INR THERAPY RANGESSTANDARD DOSE: 2.0 - 3.0 Includes: PROPHYLAXIS for venous thrombosis, systemic embolization; TREATMENT for venous thrombosis and/or pulmonary embolus.HIGH RISK: Target INR is 2.5-3.5 for patients with mechanical heart valves.CBC W/PLT COUNT & AUTO [id number] 06:06:00 Test Item Value Reference Range Interpretation [...] PERCENT (BEAKER) (test code = 2801) PROTHROMBIN TIME/[id number] 04:57:00 Test Item Value Reference Range Interpretation Comments PROTIME (BEAKER) 19.0 seconds 11.9-14.2 H (test code = 759) INR (BEAKER) (test 1.64 See_Comment [Automat ed message] code = 370) The system 8hands generated this result transmitted ref erence range: [...] S NOT APPLICABLE FOR DIALYSIS PATIEN TS. Felled Seam Operator Chainstitch ID - ALIZA [id number] 04:51:00 Test Item Value Reference Range Interpretation Comments MAGNESIUM (BEAKER) (test code = 2.2 mg/dL 1.6-2.6 627) Felled Seam Operator Chainstitch ID - ALIZA MCBC W/PLT COUNT & AUTO [id number] 04:32:00 Test Item Value Reference Range Interpretation [...] (BEAKER) (test code = 2801) COMPREHENSIVE METABOLIC [id number] 04:29:00 Test Item Value Reference Range Interpretation [...] S NOT APPLICABLE FOR DIALYSIS PATIEN TS. Felled Seam Operator Chainstitch ID - [id number] 04:29:00 Test Item Value Reference Range Interpretation Comments MAGNESIUM (BEAKER) (test code = 2.1 mg/dL 1.6-2.6 627) Felled Seam Operator Chainstitch ID - ADMINCBC W/PLT COUNT & AUTO [id number] 04:04:00 Test Item Value Reference Range Interpretation [...] (BEAKER) (test code = 2801) COMPREHENSIVE METABOLIC [id number] 06:26:00 Test Item Value Reference Range Interpretation [...] S NOT APPLICABLE FOR DIALYSIS PATIEN TS. Felled Seam Operator Chainstitch ID - ALIZA [id number] 06:26:00 Test Item Value Reference Range Interpretation Comments MAGNESIUM (BEAKER) (test code = 2.1 mg/dL 1.6-2.6 627) Felled Seam Operator Chainstitch ID - ALIZA MCBC W/PLT COUNT & AUTO [id number] 05:06:00 Test Item Value Reference Range Interpretation [...] 0-1 PERCENT (BEAKER) (test code = 2801) [id number] 07:39:00 Test Item Value Reference Range Interpretation Comments MAGNESIUM (BEAKER) 2.0 mg/dL 1.6-2.6 Specimen moderately (test code = 627) hemolyzed Felled Seam Operator Chainstitch ID - EDASICOMPREHENSIVE METABOLIC [id number] 07:39:00 Test Item Value Reference Range Interpretation [...] S NOT APPLICABLE FOR DIALYSIS PATIEN TS. Felled Seam Operator Chainstitch ID - EDASICBC W/PLT COUNT & AUTO [id number] 07:16:00 Test Item Value Reference Range Interpretation [...] PERCENT (BEAKER) (test code = 2801) PROTHROMBIN [id number] 07:08:00 Test Item Value Reference Range Interpretation Comments PROTIME (BEAKER) 20.0 seconds 11.9-14.2 H (test code = 759) INR (BEAKER) (test 1.75 See_Comment [Automat ed message] code = 370) The system 8hands generated this result transmitted ref erence range: [...] (BEAKER) No organisms seen (test code = 448768) URINALYSIS W/ [id number] 09:34:00 Test Item Value Reference Range Interpretation [...] = 516) SOURCE(BEAKER) (test code = 2795) Felled Seam Operator Chainstitch ID - [auto]Felled Seam Operator Chainstitch ID - techPROTEIN, RANDOM [id number] 09:05:00 Test Item Value Reference Range Interpretation Comments PROTEIN, URINE (BEAKER) (test code = < mg/dL 0-14 1569) Felled Seam Operator Chainstitch ID - AAHAMIDCREATININE, RANDOM [id number] 08:44:00 Test Item Value Reference Range Interpretation [...] S NOT APPLICABLE FOR DIALYSIS PATIEN TS. Felled Seam Operator Chainstitch ID - ALIZA [id number] 05:59:00 Test Item Value Reference Range Interpretation Comments MAGNESIUM (BEAKER) (test code = 1.8 mg/dL 1.6-2.6 627) Felled Seam Operator Chainstitch ID - ALIZA [id number] 05:59:00 Test Item Value Reference Range Interpretation Comments PHOSPHORUS (BEAKER) (test code = 2.5 mg/dL 2.3-4.7 604) Felled Seam Operator Chainstitch ID - ALIZA MB-TYPE NATRIURETIC FACTOR (BNP)2021-03-05 04:42:00 Test Item Value Reference Range Interpretation Comments B-TYPE NATRIURETIC PEPTIDE (BEAKER) 114 pg/mL 0-100 H (test code = 700) Felled Seam Operator Chainstitch ID - MURALI LSARS-COV2/RT-PCR (HS & REF LABS)2021-03-03 19:44:00 Test Item Value Reference Range Interpretation Comments SARS-COV2/RT-PCR (test Negative Not Detected, Negative, code = 5387503) See external report for linked test SARS-COV-2 PERFORMING LAB [facility] DENITA (test code = 8984691) Negative result for this test determines that [...] the Cheema SARS-CoV-2 assay.Fact Sheet for Healthcare Providers:https://www.[employer] Software[employer] Rx/derrick/RT_SAR N-ArJ-2_IEI_Oqff_Laxlj_08-737392.pdfFact Sheet for Healthcare Patients:https://www.Can[employer] Rx/s al/AS_DNBH-MdB-9_Owylpnb_Kxth_Zaslk_RY_17-311185T5.pdfPerforming Laboratory:[facility] [place] [address] PROTEIN, BODY [id number] 10:21:00 Test Item Value Reference Range Interpretation Comments PROTEIN FLUID (BEAKER) (test code = 0.9 g/dL 579) Absence of reference range indicates that normals have not been defined.Assay performance has not been validated for this type of specimen.Felled Seam Operator Chainstitch ID - [id number] DEHYDROGENASE (LDH), BODY [id number] 09:59:00 Test Item Value Reference Range Interpretation Comments LACTATE DEHYDROGENASE FLUID (BEAKER) 53 U/L (test code = 634) Absence of reference range indicates that normals have not been defined.Assay performance has not been validated for this type of specimen.Felled Seam Operator Chainstitch ID - [id number] 04:33:00 Test Item Value Reference Range Interpretation Comments MAGNESIUM (BEAKER) 1.8 mg/dL 1.6-2.6 Specimen slightly (test code = 627) hemolyzed Felled Seam Operator Chainstitch ID - ALIZA MBASIC METABOLIC [id number] 04:33:00 Test Item Value Reference Range Interpretation [...] S NOT APPLICABLE FOR DIALYSIS PATIEN TS. Felled Seam Operator Chainstitch ID - ALIZA Alfaroecimen slightly ictericHEPATIC FUNCTION [id number] 04:33:00 Test Item Value Reference Range Interpretation [...] Specimen slightly (test code = 347) hemolyzed Felled Seam Operator Chainstitch ID - ALIZA Alfaroecimen slightly ictericPROTHROMBIN TIME/[id number] 04:26:00 Test Item Value Reference Range Interpretation Comments PROTIME (BEAKER) 17.4 seconds 11.9-14.2 H (test code = 759) INR (BEAKER) (test 1.47 See_Comment [Automat ed message] code = 370) The system 8hands generated this result transmitted ref erence range: [...] mechanical heart valves.CBC W/PLT COUNT & AUTO [id number] 04:13:00 Test Item Value Reference Range Interpretation [...] code = 2801) URINALYSIS W/ REFLEX URINE [id number] 01:51:00 Test Item Value Reference Range Interpretation [...] code = 1584) SOURCE(BEAKER) (test code = 1287) Felled Seam Operator Chainstitch ID - [auto]Felled Seam Operator Chainstitch ID - techB-TYPE NATRIURETIC FACTOR (BNP)2021-03-03 00:25:00 Test Item Value Reference Range Interpretation Comments B-TYPE NATRIURETIC PEPTIDE (BEAKER) 140 pg/mL 0-100 H (test code = 700) Felled Seam Operator Chainstitch ID - DBBODY FLUID CELL COUNT WITH [id number] 19:42:00 Test Item Value Reference Range Interpretation [...] Tube (BEAKER) (test code = 2873) U/S, [id number] 18:21:00DR SURENDRALALReferring: Dr. Eric Lindseyabs to be ordered:->Body Fluid Culture (w/Gram Stain, C\\T\\S)Labsto be ordered:- >Glucose+LDH+ProteinLabs to be ordered:->Cell CountReason for exam:- >EYE PAINELAY[facility] : 1950 Sex: FFINAL REPORT Ultrasound guided paracentesis, 03/02/2021. Clinical History: Ascites. Sedation: None. Electrical Maintenance Technician: Tracie. Household Appliance Installer: None. Estimated Blood Loss: < 1 cc. [...] quadrant of the abdomen was selected for paracentesis.After the largest fluid pocket area was marked, and the anterior abdominal wall was evaluated with color Doppler to exclude presence of blood vessels traversing the area, the skin was prepped and draped in the usual sterile manner. After local anesthesia was achieved with 1% lidocaine, a 5 Wolof one-step catheter was advanced into the peritoneal cavity under ultrasound guidance. After completion of drainage, the catheter was removed. There was no evidence of complication. Patient Disposition: The patient was discharged from the ultrasound department after the paracentesis, in good condition. Impression:Successful ultrasound guided paracentesis. Signed: Jordon Martinez Verified Date/Time: 03/02/2021 18:21:14 Reading Location: [address] Body Reading Room BASI METABOLIC PANEL 2021-03-02 15:12:00 Test Item Value [...] S NOT APPLICABLE FOR DIALYSIS PATIEN TS. Felled Seam Operator Chainstitch ID - DBSpecimen slightly ictericHEPATIC FUNCTION [id number] 15:12:00 Test Item Value Reference Range Interpretation [...] (test code = 13 U/L 6-55 347) Felled Seam Operator Chainstitch ID - DBSpecimen slightly [id number] 15:08:00 Test Item Value Reference Range Interpretation Comments PARTIAL THROMBOPLASTIN TIME 36.1 seconds 22.5-36.0 H (BEAKER) (test code = 760) PROTHROMBIN TIME/[id number] 15:07:00 Test Item Value Reference Range Interpretation Comments PROTIME (BEAKER) 17.3 seconds 11.9-14.2 H (test code = 759) INR (BEAKER) (test 1.46 See_Comment [Automat ed message] code = 370) The system 8hands generated this result transmitted ref erence range: [...] mechanical heart valves.CBC W/PLT COUNT & AUTO [id number] 14:53:00 Test Item Value Reference Range Interpretation [...] (BEAKER) (test code = 2801) COMPREHENSIVE METABOLIC [id number] 14:28:00 Test Item Value Reference Range Interpretation [...] S NOT APPLICABLE FOR DIALYSIS PATIEN TS. Felled Seam Operator Chainstitch ID - EDASIPROTHROMBIN TIME/[id number] 14:14:00 Test Item Value Reference Range Interpretation Comments PROTIME (BEAKER) 17.1 seconds 11.9-14.2 H (test code = 759) INR (BEAKER) (test 1.43 See_Comment [Automat ed message] code = 370) The system 8hands generated this result transmitted ref erence range: [...] mechanical heart valves.CBC W/PLT COUNT & AUTO [id number] 14:10:00 Test Item Value Reference Range Interpretation [...] (BEAKER) (test code = 2801) MR, ABDOMEN, [id number] 11:27:00DR JAMES Referring: Dr. Eric Neal LIVER PROTOCOL PLEASE FAX RESULTS TO OMI WALL NP AT [phone]. LIVER PROTOCOL PLEASE FAX RESULTS TO OMI WALL NP AT [phone]. [facility] : 1950 Sex: FFINAL [...] MDReport Verified Date/Time: 02/09/2021 11:27:04 Reading Location: [facility] Diagnostic Imaging Reading Room - [place] [address] ALPHA FETOPROTEIN (AFP), TUMOR MARKER 2021-02-04 13:26:00 Test Item Value Reference Range Interpretation Comments ALPHA-FETOPROTEIN (BEAKER) (test 2.1 ng/mL <10.0 code = 1094) Felled Seam Operator Chainstitch ID - MADAY FBASIC METABOLIC [id number] 13:09:00 Test Item Value Reference Range Interpretation [...] S NOT APPLICABLE FOR DIALYSIS PATIEN TS. Felled Seam Operator Chainstitch ID Shakir HYATTpecimealex slightly ictericHEPATIC FUNCTION PANEL 2021-02-04 13:09:00 Test [...] (test code = 16 U/L 6-55 347) Felled Seam Operator Chainstitch ID - MADAY Coughlindelphinealex slightly ictericPROTHROMBIN TIME/[id number] 13:03:00 Test Item Value Reference Range Interpretation Comments PROTIME (BEAKER) 17.1 seconds 11.9-14.2 H (test code = 759) INR (BEAKER) (test 1.43 See_Comment [Automat ed message] code = 370) The system 8hands generated this result transmitted ref erence range: [...] mechanical heart valves.CBC W/PLT COUNT & AUTO [id number] 12:39:00 Test Item Value Reference Range Interpretation [...] PERCENT (BEAKER) (test code = 2801) BLOOD [id number] 00:00:00 Test Item Value Reference Range Interpretation Comments CULTURE (BEAKER) (test No growth in 5 days code = 1095) POCT-GLUCOSE [id number] 17:00:00 Test Item Value Reference Range Interpretation Comments POC-GLUCOSE METER 154 mg/dL 70-110 H : TESTED A T [facility] 6720 (BEAKER) (test code = [facility], 1538) 57698: Felled Seam Operator Chainstitch/Techni juan antonio ID = [id number] for OR COLEMAN EDMONDS POCT-GLUCOSE [id number] 11:33:00 Test Item Value Reference Range Interpretation Comments POC-GLUCOSE METER 126 mg/dL 70-110 H : TESTED A T [facility] 6720 (BEAKER) (test code = [facility], 1538) 64689: Felled Seam Operator Chainstitch/Techni juan antonio ID = [id number] for OR COLEMAN EDMONDS BLOOD [id number] 09:00:00 Test Item Value Reference Range Interpretation Comments CULTURE (BEAKER) (test No growth in 5 days code = 1095) POCT-GLUCOSE [id number] 08:14:00 Test Item Value Reference Range Interpretation Comments POC-GLUCOSE METER 97 mg/dL 70-110 : TESTED A T [facility] 6720 (BEAKER) (test code = [facility], 1538) 19036: Felled Seam Operator Chainstitch/Techni juan antonio ID = [id number] for ORCOLEMAN HAND COMPREHENSIVE METABOLIC [id number] 05:20:00 Test Item Value Reference Range Interpretation [...] S NOT APPLICABLE FOR DIALYSIS PATIEN TS. Felled Seam Operator Chainstitch ID - ALIZA MSpecimen slightly ictericCBC W/PLT COUNT & AUTO [id number] 04:42:00 Test Item Value Reference Range Interpretation [...] 0-1 PERCENT (BEAKER) (test code = 2801) [id number] 04:34:00 Test Item Value Reference Range Interpretation Comments PARTIAL THROMBOPLASTIN TIME 41.4 seconds 22.5-36.0 H (BEAKER) (test code = 760) PROTHROMBIN [id number] 04:33:00 Test Item Value Reference Range Interpretation Comments PROTIME (BEAKER) 18.5 seconds 11.9-14.2 H (test code = 759) INR (BEAKER) (test 1.59 See_Comment [Automat ed message] code = 370) The system 8hands generated this result transmitted ref erence range: <=5.90. The reference range was not used to int erpret this result as normal/abnormal . Effective 03/14/2019: PT Reference Range ChangeNew: 11.9-14.2 Previous: 11.7- 14.7RECOMMENDED COUMADIN/WARFARIN INR THERAPY RANGESSTANDARD DOSE: 2.0-3.0 Includes: PROPHYLAXIS for venous thrombosis, systemic embolization; TREATMENT for venous thrombosis and/or pulmonary embolus.HIGH RISK: Target INR is 2.5-3.5 for patients wiht mechanical heart valves.POCT-GLUCOSE [id number] 20:49:00 Test Item Value Reference Range Interpretation Comments POC-GLUCOSE METER 182 mg/dL 70-110 H : TESTED A T [facility] 6720 ([employer]) (test code = [facility], 153) 03508: Felled Seam Operator Chainstitch/Techni juan antonio ID = [id number] for SHELDON LOBATO REGGIE POCT-GLUCOSE [id number] 17:45:00 Test Item Value Reference Range Interpretation Comments POC-GLUCOSE METER 136 mg/dL 70-110 H : TESTED A T [facility] 6720 ([employer]) (test code = [facility], 153) 77996: Felled Seam Operator Chainstitch/Techni juan antonio ID = [id number] for Lu Mcrae POCT-GLUCOSE [id number] 11:31:00 Test Item Value Reference Range Interpretation Comments POC-GLUCOSE METER 142 mg/dL 70-110 H : TESTED A T [facility] 6720 (Biomedix vascular solutionAKER) (test code = [facility], 153) 40149: Felled Seam Operator Chainstitch/Techni juan antonio ID = [id number] for Lu Mcrae POCT-GLUCOSE [id number] 08:36:00 Test Item Value Reference Range Interpretation Comments POC-GLUCOSE METER 93 mg/dL 70-110 : TESTED A T [facility] 6720 ([employer]) (test code = [facility], 153) 46548: Felled Seam Operator Chainstitch/Techni juan antonio ID = [id number] for CHINO MUNOZ COMPREHENSIVE METABOLIC [id number] 06:31:00 Test Item Value Reference Range Interpretation Comments TOTAL PROTEIN 5.5 gm/dL 6.0-8.3 L (Biomedix vascular solutionAKER) (test code = 770) ALBUMIN (BEAKER) 2.0 [...] 347) EGFR (BEAKER) (test 53 mL/min/1.73 ESTIMA JACQUELYN GFR IS code = 1092) sq m NOT ACCURATE CREATININE CLEARANCE IN PREDICTING GLOMERULAR FILTRATION RATE . ESTIMATED GFR I S NOT APPLICABLE FOR DIALYSIS PATIEN TS. Felled Seam Operator Chainstitch ID - ALIZA MSpecimen slightly ictericU/S, RENAL, [id number] 06:29:00DR Verdeing: Dr. rEic Morel for exam:->JOSE MANUEL left hydronephrosisS[facility]IN[facility]: [facility] : 1950 Sex: FFINAL [...] right upper quadrant ascites.Liver cirrhosis. Signed: Amy Villavicencioeport Verified Date/Time: 12/14/2020 06:29:34 PROTHROMBIN [id number] 06:09:00 Test Item Value Reference Range Interpretation Comments PROTIME (BEAKER) 19.3 seconds 11.9-14.2 H (test code = 759) INR (BEAKER) (test 1.67 See_Comment [Automat ed message] code = 370) The system 8hands generated this result transmitted ref erence range: <=5.90. The reference range was not used to int erpret this result as normal/abnormal . Effective 03/14/2019: PT Reference Range ChangeNew: 11.9-14.2 Previous: 11.7- 14.7RECOMMENDED COUMADIN/WARFARIN INR THERAPY RANGESSTANDARD DOSE: 2.0-3.0 Includes: PROPHYLAXIS for venous thrombosis, systemic embolization; TREATMENT for venous thrombosis and/or pulmonary embolus.HIGH RISK: Target INR is 2.5-3.5 for patients wiht mechanical heart valves.[id number] 06:09:00 Test Item Value Reference Range Interpretation Comments PARTIAL THROMBOPLASTIN TIME 44.9 seconds 22.5-36.0 H (BEAKER) (test code = 760) CBC W/PLT COUNT & AUTO [id number] 06:05:00 Test Item Value Reference Range Interpretation [...] PERCENT (BEAKER) (test code = 2801) POCT-GLUCOSE [id number] 21:09:00 Test Item Value Reference Range Interpretation Comments POC-GLUCOSE METER 180 mg/dL 70-110 H : TESTED A T [facility] 6720 (BEAKER) (test code = [facility], 153) 86583: Felled Seam Operator Chainstitch/Techni juan antonio ID = [id number] for KATIE LOO POCT-GLUCOSE [id number] 18:29:00 Test Item Value Reference Range Interpretation Comments POC-GLUCOSE METER 120 mg/dL 70-110 H : TESTED A T [facility] 6720 (BEAKER) (test code = [facility], [facility]) [address]: Felled Seam Operator Chainstitch/Techni juan antonio ID = [id number] for Lu Mcrae POCT-GLUCOSE [id number] 12:18:00 Test Item Value Reference Range Interpretation Comments POC-GLUCOSE METER 106 mg/dL 70-110 : TESTED A T [facility] 6720 (BEAKER) (test code = [facility], 153) 89448: Felled Seam Operator Chainstitch/Techni juan antonio ID = [id number] for Lu Mcrae POCT-GLUCOSE [id number] 09:32:00 Test Item Value Reference Range Interpretation Comments POC-GLUCOSE METER 94 mg/dL 70-110 : TESTED A T [facility] 6720 (BEAKER) (test code = [facility], 1538) 87289: Felled Seam Operator Chainstitch/Techni juan antonio ID = [id number] for CHINO MUNOZ POCT-GLUCOSE [id number] 06:00:00 Test Item Value Reference Range Interpretation Comments POC-GLUCOSE METER 124 mg/dL 70-110 H : TESTED A T [facility] 6720 (BEAKER) (test code = [facility], 1538) 85454: Felled Seam Operator Chainstitch/Techni juan antonio ID = [id number] for YONI DOLAN COMPREHENSIVE METABOLIC [id number] 02:50:00 Test Item Value Reference Range Interpretation [...] S NOT APPLICABLE FOR DIALYSIS PATIEN TS. Felled Seam Operator Chainstitch ID - ALIZA MSpecimen slightly ictericPROTHROMBIN [id number] 02:41:00 Test Item Value Reference Range Interpretation Comments PROTIME (BEAKER) 19.5 seconds 11.9-14.2 H (test code = 759) INR (BEAKER) (test 1.70 See_Comment [Automat ed message] code = 370) The system 8hands generated this result transmitted ref erence range: <=5.90. The reference range was not used to int erpret this result as normal/abnormal . Effective 03/14/2019: PT Reference Range ChangeNew: 11.9-14.2 Previous: 11.7- 14.7RECOMMENDED COUMADIN/WARFARIN INR THERAPY RANGESSTANDARD DOSE: 2.0-3.0 Includes: PROPHYLAXIS for venous thrombosis, systemic embolization; TREATMENT for venous thrombosis and/or pulmonary embolus.HIGH RISK: Target INR is 2.5-3.5 for patients wiht mechanical heart valves.[id number] 02:41:00 Test Item Value Reference Range Interpretation Comments PARTIAL THROMBOPLASTIN TIME 45.0 seconds 22.5-36.0 H (BEAKER) (test code = 760) CBC W/PLT COUNT & AUTO [id number] 02:28:00 Test Item Value Reference Range Interpretation [...] (BEAKER) (test code = 2801) HEMOGLOBIN AND [id number] 02:16:00 Test Item Value Reference Range Interpretation Comments HEMOGLOBIN (BEAKER) (test code = 8.2 GM/DL 11.2-15.7 L 410) HEMATOCRIT (BEAKER) (test code = 26.3 % 34.1-44.9 L 411) POCT-GLUCOSE [id number] 23:32:00 Test Item Value Reference Range Interpretation Comments POC-GLUCOSE METER 127 mg/dL 70-110 H : TESTED A T [facility] 6720 (BEAKER) (test code = [facility], 1538) 33687: Felled Seam Operator Chainstitch/Techni juan antonio ID = [id number] for LO PEZ, NADINA HEMOGLOBIN AND [id number] 18:28:00 Test Item Value Reference Range Interpretation Comments HEMOGLOBIN (BEAKER) (test code = 8.2 GM/DL 11.2-15.7 L 410) HEMATOCRIT (BEAKER) (test code = 26.7 % 34.1-44.9 L 411) Felled Seam Operator Chainstitch ID - [id number] ID - 6000POCT-GLUCOSE [id number] 17:02:00 Test Item Value Reference Range Interpretation Comments POC-GLUCOSE METER 139 mg/dL 70-110 H : TESTED A T [facility] 6720 (BEAKER) (test code [facility], = 1538) 33624: Felled Seam Operator Chainstitch/Techni juan atnonio ID = [id number] for TSEG GAI, TSIGHEREDA POCT-GLUCOSE [id number] 13:03:00 Test Item Value Reference Range Interpretation Comments POC-GLUCOSE METER 129 mg/dL 70-110 H : TESTED A T [facility] 6720 (BEAKER) (test code [facility], = 1538) 05832: Felled Seam Operator Chainstitch/Techni juan antonio ID = [id number] for KUMAR COBOS HEMOGLOBIN AND [id number] 09:35:00 Test Item Value Reference Range Interpretation Comments HEMOGLOBIN (BEAKER) (test code = 8.9 GM/DL 11.2-15.7 L 410) HEMATOCRIT (BEAKER) (test code = 29.1 % 34.1-44.9 L 411) Felled Seam Operator Chainstitch ID - 6000POCT-GLUCOSE [id number] 08:43:00 Test Item Value Reference Range Interpretation Comments POC-GLUCOSE METER 96 mg/dL 70-110 : TESTED A T [facility] 6720 (BEAKER) (test code [facility], = 1538) 31520: Felled Seam Operator Chainstitch/Techni juan antonio ID = [id number] for ROSALVA COBOSA CBC W/PLT COUNT & AUTO [id number] 07:28:00 Test Item Value Reference Range Interpretation [...] (BEAKER) (test code = 2801) COMPREHENSIVE METABOLIC [id number] 07:12:00 Test Item Value Reference Range Interpretation [...] S NOT APPLICABLE FOR DIALYSIS PATIEN TS. Felled Seam Operator Chainstitch ID - MURALI LSpecimen slightly [id number] 07:09:00 Test Item Value Reference Range Interpretation Comments MAGNESIUM (BEAKER) (test code = 1.7 mg/dL 1.6-2.6 627) Felled Seam Operator Chainstitch ID - MURALI [id number] 07:09:00 Test Item Value Reference Range Interpretation Comments PHOSPHORUS (BEAKER) (test code = 2.5 mg/dL 2.3-4.7 604) Felled Seam Operator Chainstitch ID - MURALI LPROTHROMBIN TIME/[id number] 06:59:00 Test Item Value Reference Range Interpretation Comments PROTIME (BEAKER) 19.8 seconds 11.9-14.2 H (test code = 759) INR (BEAKER) (test 1.73 See_Comment [Automat ed message] code = 370) The system 8hands generated this result transmitted ref erence range: <=5.90. The reference range was not used to int erpret this result as normal/abnormal . Effective 03/14/2019: PT Reference Range ChangeNew: 11.9-14.2 Previous: 11.7- 14.7RECOMMENDED COUMADIN/WARFARIN INR THERAPY RANGESSTANDARD DOSE: 2.0-3.0 Includes: PROPHYLAXIS for venous thrombosis, systemic embolization; TREATMENT for venous thrombosis and/or pulmonary embolus.HIGH RISK: Target INR is 2.5-3.5 for patients wiht mechanical heart valves.[id number] 06:59:00 Test Item Value Reference Range Interpretation Comments PARTIAL THROMBOPLASTIN TIME 47.3 seconds 22.5-36.0 H (BEAKER) (test code = 760) CALCIUM, [id number] 06:46:00 Test Item Value Reference Range Interpretation Comments CALCIUM IONIZED (BEAKER) (test 1.09 mmol/L 1.12-1.27 L code = 698) PH, BLOOD (BEAKER) (test code = 7.40 1810) POCT-GLUCOSE [id number] 05:56:00 Test Item Value Reference Range Interpretation Comments POC-GLUCOSE METER 93 mg/dL 70-110 : TESTED A T [facility] 6720 (BEAKER) (test code = [facility] [employer] [facility], 1538) 51131: Felled Seam Operator Chainstitch/Techni juan antonio ID = [id number] for YONI PUGH POCT-GLUCOSE [id number] 17:37:00 Test Item Value Reference Range Interpretation Comments POC-GLUCOSE METER 143 mg/dL 70-110 H : TESTED A T [facility] 6720 (BEAKER) (test code = [employer] [facility], 1538) 98470: Felled Seam Operator Chainstitch/Techni juan antonio ID = [id number] for Katelynn Dempsey HEMOGLOBIN AND [id number] 16:53:00 Test Item Value Reference Range Interpretation Comments HEMOGLOBIN (BEAKER) (test code = 6.4 GM/DL 11.2-15.7 L 410) HEMATOCRIT (BEAKER) (test code = 21.4 % 34.1-44.9 L 411) Felled Seam Operator Chainstitch ID - [id number] W/PLT COUNT & AUTO [id number] 13:07:00 Test Item Value Reference Range Interpretation [...] to report due WIDTH (BEAKER) (test to [facility] RBC code = 412) population distribution. [...] CONCENTRATION Decreased (CELLAVISION)(BEAKER) (test code = 3438) Felled Seam Operator Chainstitch ID - Maday Lazar comments: Slide comments:POCT-GLUCOSE METER 2020-12-11 12:23:00 Test Item Value Reference Range Interpretation Comments POC-GLUCOSE METER 159 mg/dL 70-110 H : TESTED A T [facility] 6720 (BEAKER) (test code = [facility], 1538) 41443: Felled Seam Operator Chainstitch/Techni juan antonio ID = [id number] for An Katelynn spann [id number] 07:14:00 Test Item Value Reference Range Interpretation Comments MAGNESIUM (BEAKER) (test code = 2.0 mg/dL 1.6-2.6 627) Felled Seam Operator Chainstitch ID - MURALI [id number] 07:14:00 Test Item Value Reference Range Interpretation Comments PHOSPHORUS (BEAKER) (test code = 2.7 mg/dL 2.3-4.7 604) Felled Seam Operator Chainstitch ID - MURALI LCOMPREHENSIVE METABOLIC [id number] 07:14:00 Test Item Value Reference Range Interpretation [...] S NOT APPLICABLE FOR DIALYSIS PATIEN TS. Felled Seam Operator Chainstitch WENDY CARRION LSpecimen slightly ictericB-TYPE NATRIURETIC FACTOR (BNP) 2020-12-11 07:11:00 Test Item Value Reference Range Interpretation Comments B-TYPE NATRIURETIC PEPTIDE (BEAKER) 192 pg/mL 0-100 H (test code = 700) Felled Seam Operator Chainstitch WENDY CARRION LCALCIUM, [id number] 06:57:00 Test Item Value Reference Range Interpretation Comments CALCIUM IONIZED (BEAKER) (test 1.08 mmol/L 1.12-1.27 L code = 698) PH, BLOOD (BEAKER) (test code = 7.42 1810) PROTHROMBIN TIME/[id number] 06:53:00 Test Item Value Reference Range Interpretation Comments PROTIME (BEAKER) 19.7 seconds 11.9-14.2 H (test code = 759) INR (BEAKER) (test 1.72 See_Comment [Automat ed message] code = 370) The system 8hands generated this result transmitted ref erence range: <=5.90. The reference range was not used to int erpret this result as normal/abnormal . Effective 03/14/2019: PT Reference Range ChangeNew: 11.9-14.2 Previous: 11.7- 14.7RECOMMENDED COUMADIN/WARFARIN INR THERAPY RANGESSTANDARD DOSE: 2.0-3.0 Includes: PROPHYLAXIS for venous thrombosis, systemic embolization; TREATMENT for venous thrombosis and/or pulmonary embolus.HIGH RISK: Target INR is 2.5-3.5 for patients wiht mechanical heart valves.[id number] 06:53:00 Test Item Value Reference Range Interpretation Comments PARTIAL THROMBOPLASTIN TIME 43.2 seconds 22.5-36.0 H (BEAKER) (test code = 760) POCT-GLUCOSE [id number] 06:26:00 Test Item Value Reference Range Interpretation Comments POC-GLUCOSE METER 105 mg/dL 70-110 : TESTED A T [facility] 6720 ([employer]) (test code = [facility], 1538) 09307: Felled Seam Operator Chainstitch/Techni juan antonio ID = [id number] for ALVINA HUANG RAD, CHEST, 1 VIEW, NON [id number] 03:58:00DR JALALReferring: Dr. Eric Morel for exam:->edemaShould this be performed at the bedside?->Yes [facility] 1950 Sex: FFINAL REPORT RAD, CHEST, 1 VIEW, NON DEPT INDICATION: edema COMPARISON: Exam from eight hours prior FINDINGS: Portable frontal view of the chest. IMPRESSION: Support Lines: None Lungs and pleura: Hypoinflated lungs without significant change in bilateral patchy lung opacities. Nosizable effusion. No pneumothorax.Heart and mediastinum: Stable contours.Additional findings: None. S igned: Jersey Galicia Verified Date/Time: 12/11/2020 03:58:26 U/S, ENDOVAGINAL (EV)2020-12-11 03:56:00DR GOLDYeferring: Dr. Eric Morel for exam:->Vaginal bleeding [facility] : 1950 Sex: FFINAL [...] includes endometrial carcinoma, endometrial polyp or hyperplasia. FLAT KNITTER evaluation is recommended.Nonvisualization of the right ovary.Moderate pelvic free fluid. Signed: Amy Villavicencio MDReport Verified Date/Time: 12/11/2020 03:56:10 U/S, ABDOMINAL, [id number] 03:13:00DR JAMES Referring: Dr. Eric Val Labs to be ordered:->Cell Count Labs to be ordered:- >Body Fluid Culture (w/Gram Stain, C\\T\\S) Reason for exam:->ascites r/u SBPCH[facility] : 1950 Sex: FFINAL REPORT TECHNIQUE: Grayscale ultrasound of the abdomen. INDICATION: ascites r/u SBP. COMPARISON: None. IMPRESSION: No ascites on sonographic survey of all four quadrants of the abdomen. Signed: Jersey Galicia MDReport Verified Date/Time: 12/11/2020 03:13:18 POCT-GLUCOSE [id number] 00:14:00 Test Item Value Reference Range Interpretation Comments POC-GLUCOSE METER 125 mg/dL 70-110 H : TESTED A T [facility] 6720 ([facility]) (test code = [facility], 1538) 93100: Felled Seam Operator Chainstitch/Techni juan antonio ID = [id number] for ALVINA HUANG SARS-COV2/RT-PCR ([facility])2020-12-10 22:11:00 Test Item Value Reference Range Interpretation Comments SARS-COV2/RT-PCR (test Negative Not Detected, Negative, code = 3952553) See external report for linked test SARS-COV-2 PERFORMING LAB [facility] DENITA (test code = 0225337) Negative result for this test determines that [...] of the Act.Fact Sheet for Healthcare Prov iders:https://www.[employer]/sites/default/files/product/documents/Fact_Sheet_HC _Ziifvkjzt_Czul_ETOQ-NxH-6.pdfFact Sheet for Healthcare Patients:https://www.[employer]/sites/default/files/product/docume nts/Vblt_Tyknf_Vzfjnjmi_Inkn_UPLO-TdW-1.pdfPerforming Laboratory:[facility].[place], [place] [address]MPVWJNRQTY AND HEMATOCRIT 2020-12-10 20:58:00 Test Item Value Reference Range Interpretation Comments HEMOGLOBIN (BEAKER) (test code = 7.5 GM/DL 11.2-15.7 L 410) HEMATOCRIT (BEAKER) (test code = 24.4 % 34.1-44.9 L 411) Felled Seam Operator Chainstitch ID - [id number], CHEST, 1 VIEW, NON [id number] 13:15:00DR JALALReferring: Dr. Eric Morel for exam:->encephalopathy r/o infectionShould this be performed at the bedside?->Yes [facility] : 1950 Sex: FFINAL REPORT INDICATION: encephalopathy r/o infection COMPARISON: None TECHNIQUE: Single frontal view of the chest. FINDINGS: Lungs and pleura: Mild basilar interstitial thickening and small bilateral effusions. Superimposed infection may be excluded clinically. No effusion.Heartand mediastinum: Normal heart size. Unremarkable mediastinal contours.Osseous structures: No acute ab normality.Other: None. Signed: Afshan Chaudhry Verified Date/Time: 12/10/2020 13:15:33 [place] Location: [facility] Radiology [place] Room -GLUCOSE [id number] 12:25:00 Test Item Value Reference Range Interpretation Comments POC-GLUCOSE METER 128 mg/dL 70-110 H : TESTED A T [facility] 6720 (BEAKER) (test code = [facility], 1538) 38017: Felled Seam Operator Chainstitch/Techni juan antonio ID = [id number] for SIRIA TANG [id number] 12:11:00 Test Item Value Reference Range Interpretation Comments AMMONIA (BEAKER) (test code = 348) 72 mol/L 18-72 Felled Seam Operator [employer] ID - PIAYA LBASIC METABOLIC [id number] 07:18:00 Test Item Value Reference Range Interpretation [...] S NOT APPLICABLE FOR DIALYSIS PATIEN TS. Felled Seam Operator Chainstitch ID - PIAYA LSpecimen slightly ictericHEPATIC FUNCTION [id number] 07:18:00 Test Item Value Reference Range Interpretation [...] (test code = 48 U/L 6-55 347) Felled Seam Operator Chain[employer]ch ID - PIAYA LSpecimen slightly ictericCBC W/PLT COUNT & AUTO [id number] 07:06:00 Test Item Value Reference Range Interpretation [...] PERCENT (BEAKER) (test code = 2801) PROTHROMBIN TIME/[id number] 07:00:00 Test Item Value Reference Range Interpretation Comments PROTIME (BEAKER) 18.1 seconds 11.9-14.2 H (test code = 759) INR (BEAKER) (test 1.55 See_Comment [Automat ed message] code = 370) The system 8hands generated this result transmitted ref erence range: [...] = 514) SOURCE(BEAKER) (test code = 2795) Felled Seam Operator Chainstitch ID - [auto]Felled Seam Operator Chainstitch ID - techCOMPREHENSIVE METABOLIC [id number] 07:02:00 Test Item Value Reference Range Interpretation [...] S NOT APPLICABLE FOR DIALYSIS PATIEN TS. Felled Seam Operator Chainstitch ID - ADMINSpecimen slightly [id number] 07:00:00 Test Item Value Reference Range Interpretation Comments MAGNESIUM (BEAKER) (test code = 2.3 mg/dL 1.6-2.6 627) Felled Seam Operator Chainstitch ID - [id number] 07:00:00 Test Item Value Reference Range Interpretation Comments PHOSPHORUS (BEAKER) (test code = 2.8 mg/dL 2.3-4.7 604) Felled Seam Operator Chainstitch ID - ADMINHEPATIC FUNCTION [id number] 07:00:00 Test Item Value Reference Range Interpretation [...] code = 56 U/L 6-55 H 347) Felled Seam Operator Chainstitch ID - ADMINSpecimen slightly ictericCREATINE KINASE (CK)2020-12-08 07:00:00 Test Item Value Reference Range Interpretation Comments CREATINE KINASE TOTAL (BEAKER) (test 35 U/L 29-200 code = 380) Felled Seam Operator Chainstitch ID - ADMINCBC W/PLT COUNT & AUTO [id number] 06:58:00 Test Item Value Reference Range Interpretation [...] PERCENT (BEAKER) (test code = 2801) CALCIUM, [id number] 06:49:00 Test Item Value Reference Range Interpretation Comments CALCIUM IONIZED (BEAKER) (test 1.09 mmol/L 1.12-1.27 L code = 698) PH, BLOOD (BEAKER) (test code = 7.36 1810) PROTHROMBIN TIME/[id number] 06:48:00 Test Item Value Reference Range Interpretation Comments PROTIME (BEAKER) 19.0 seconds 11.9-14.2 H (test code = 759) INR (BEAKER) (test 1.66 See_Comment [Automat ed message] code = 370) The system 8hands generated this result transmitted ref erence range: [...] for patients wiht mechanical heart valves.U/S, RENAL, [id number] 05:26:00DR SURENDRALALReferring: Dr. Eric Morel for exam:->jose manuel [facility] : 1950 Sex: FFINAL [...] Signed: Michael Tabareseport Verified Date/Time: 12/08/2020 05:26:28 CREATININE, RANDOM URINE 2020-12-07 21:05:00 Test Item Value Reference Range Interpretation Comments CREATININE URINE (BEAKER) (test 130.0 mg/dL code = 375) Reference Range: No NormalsOperator ID - BSPROTEIN, RANDOM [id number] 21:05:00 Test Item Value Reference Range Interpretation Comments PROTEIN, URINE (BEAKER) (test code = 32 mg/dL 0-14 H 1569) Felled Seam Operator [employer] ID - BSSODIUM, RANDOM [id number] 21:05:00 Test Item Value Reference Range Interpretation Comments SODIUM URINE (BEAKER) (test code = 26 meq/L 243) Reference Range: No NormalsOperator ID - BSURINALYSIS W/ [id number] 20:44:00 Test Item Value Reference Range Interpretation [...] code = 516) SOURCE(BEAKER) (test code = 2799) Felled Seam Operator Chainstitch ID - [auto]Felled Seam Operator Chainstitch ID - techCOMPREHENSIVE METABOLIC [id number] 05:50:00 Test Item Value Reference Range Interpretation [...] S NOT APPLICABLE FOR DIALYSIS PATIEN TS. Felled Seam Operator Chainstitch ID - EDASISpecimen slightly [id number] 05:49:00 Test Item Value Reference Range Interpretation Comments MAGNESIUM (BEAKER) (test code = 2.4 mg/dL 1.6-2.6 627) Felled Seam Operator Chainstitch ID - ETDFMSNWOXBVXJJ0677-11-42 05:49:00 Test Item Value Reference Range Interpretation Comments PHOSPHORUS (BEAKER) (test code = 3.3 mg/dL 2.3-4.7 604) Felled Seam Operator Chainstitch ID - EDASIHEPATIC FUNCTION [id number] 05:49:00 Test Item Value Reference Range Interpretation [...] code = 69 U/L 6-55 H 347) Felled Seam Operator Chainstitch ID - EDASISpecimen slightly ictericPROTHROMBIN TIME/[id number] 05:41:00 Test Item Value Reference Range Interpretation Comments PROTIME (BEAKER) 18.3 seconds 11.9-14.2 H (test code = 759) INR (BEAKER) (test 1.58 See_Comment [Automat ed message] code = 370) The system 8hands generated this result transmitted ref erence range: <=5.90. The reference range was not used to int erpret this result as normal/abnormal . Effective 03/14/2019: PT Reference Range ChangeNew: 11.9-14.2 Previous: 11.7- 14.7RECOMMENDED COUMADIN/WARFARIN INR THERAPY RANGESSTANDARD DOSE: 2.0-3.0 Includes: PROPHYLAXIS for venous thrombosis, systemic embolization; TREATMENT for venous thrombosis and/or pulmonary embolus.HIGH RISK: Target INR is 2.5-3.5 for patients wiht mechanical heart valves.CALCIUM, [id number] 05:28:00 Test Item Value Reference Range Interpretation Comments CALCIUM IONIZED (BEAKER) (test 1.10 mmol/L 1.12-1.27 L code = 698) PH, BLOOD (BEAKER) (test code = 7.34 1810) CBC W/PLT COUNT & AUTO [id number] 05:27:00 Test Item Value Reference Range Interpretation [...] (BEAKER) (test code = 2801) COMPREHENSIVE METABOLIC [id number] 06:09:00 Test Item Value Reference Range Interpretation [...] S NOT APPLICABLE FOR DIALYSIS PATIEN TS. Felled Seam Operator [employer] ID - ALIZA MSpecimen slightly ictericCBC W/PLT COUNT & AUTO [id number] 05:56:00 Test Item Value Reference Range Interpretation [...] GRANULOCYTES-RELATIVE PERCENT (BEAKER) (test code = 2801) [id number] 05:53:00 Test Item Value Reference Range Interpretation Comments MAGNESIUM (BEAKER) (test code = 2.2 mg/dL 1.6-2.6 627) Felled Seam Operator Chain[employer]ch ID - ALIZA MHEPATIC FUNCTION [id number] 05:53:00 Test Item Value Reference Range Interpretation [...] code = 84 U/L 6-55 H 347) Felled Seam Operator Chain[employer]ch ID - ALIZA MSpecimen slightly [id number] 06:10:00 Test Item Value Reference Range Interpretation Comments MAGNESIUM (BEAKER) (test code = 2.0 mg/dL 1.6-2.6 627) Felled Seam Operator Chainstitch ID - [id number] 06:10:00 Test Item Value Reference Range Interpretation Comments PHOSPHORUS (BEAKER) (test code = 2.5 mg/dL 2.3-4.7 604) Felled Seam Operator Chainstitch ID - EDASICOMPREHENSIVE METABOLIC [id number] 06:10:00 Test Item Value Reference Range Interpretation [...] S NOT APPLICABLE FOR DIALYSIS PATIEN TS. Felled Seam Operator Chainstitch ID - EDASISpecimen moderately ictericHEPATIC FUNCTION [id number] 06:10:00 Test Item Value Reference Range Interpretation [...] code = 95 U/L 6-55 H 347) Felled Seam Operator Chainstitch ID - EDASISpecimen moderately ictericB-TYPE NATRIURETIC FACTOR (BNP) 2020-12-05 05:49:00 Test Item Value Reference Range Interpretation Comments B-TYPE NATRIURETIC PEPTIDE (BEAKER) 231 pg/mL 0-100 H (test code = 700) Felled Seam Operator Chainstitch ID - EDASIPROTHROMBIN TIME/[id number] 05:27:00 Test Item Value Reference Range Interpretation Comments PROTIME (BEAKER) 20.0 seconds 11.9-14.2 H (test code = 759) INR (BEAKER) (test 1.77 See_Comment [Automat ed message] code = 370) The system 8hands generated this result transmitted ref erence range: [...] mechanical heart valves.CBC W/PLT COUNT & AUTO [id number] 05:19:00 Test Item Value Reference Range Interpretation [...] PERCENT (BEAKER) (test code = 2801) CALCIUM, [id number] 05:19:00 Test Item Value Reference Range Interpretation Comments CALCIUM IONIZED (BEAKER) (test 1.11 mmol/L 1.12-1.27 L code = 698) PH, BLOOD (BEAKER) (test code = 7.41 1810) BILIRUBIN, [id number] 10:34:00 Test Item Value Reference Range Interpretation Comments BILIRUBIN DIRECT (BEAKER) (test 2.3 mg/dL 0.1-0.5 H code = 706) Felled Seam Operator Chain[employer]ch ID - AAHAMIDSARS-COV2/RT-PCR ([facility])2020-12-04 07:25:00 Test Item Value Reference Range Interpretation Comments SARS-COV2/RT-PCR (test Negative Not Detected, Negative, code = 2334483) See external report for linked test SARS-COV-2 PERFORMING LAB [facility] (test code = 0010584) Negative result for this test determines that [...] of the Act.Fact Sheet for Healthcare Prov iders:https://www.[employer]/sites/default/files/product/documents/Fact_Sheet_HC _Lasmlbocu_Ennw_YVBH-LdU-8.pdfFact Sheet for Healthcare Patients:https://www.[employer]/sites/default/files/product/docume nts/Ypeb_Ywjpj_Ltmaatjb_Aoqx_KHKP-AgX-2.pdfPerforming Laboratory:[address] [address]K-KXMJ NATRIURETIC FACTOR (BNP)2020-12-04 05:48:00 Test Item Value Reference Range Interpretation Comments B-TYPE NATRIURETIC PEPTIDE (BEAKER) 365 pg/mL 0-100 H (test code = 700) Felled Seam Operator Chain[employer] ID - ALIZA [id number] 05:42:00 Test Item Value Reference Range Interpretation Comments MAGNESIUM (BEAKER) (test code = 2.1 mg/dL 1.6-2.6 627) Felled Seam Operator [employer]ch ID - ALIZA [id number] 05:42:00 Test Item Value Reference Range Interpretation Comments PHOSPHORUS (BEAKER) (test code = 2.2 mg/dL 2.3-4.7 L 604) Felled Seam Operator [employer]ch ID - ALIZA MCOMPREHENSIVE METABOLIC [id number] 05:42:00 Test Item Value Reference Range Interpretation [...] S NOT APPLICABLE FOR DIALYSIS PATIEN TS. Felled Seam Operator Chainstitch ID - ALIZA MSpecimen moderately ictericCALCIUM, [id number] 05:18:00 Test Item Value Reference Range Interpretation Comments CALCIUM IONIZED (BEAKER) (test 1.11 mmol/L 1.12-1.27 L code = 698) PH, BLOOD (BEAKER) (test code = 7.38 1810) CBC W/PLT COUNT & AUTO [id number] 05:13:00 Test Item Value Reference Range Interpretation [...] PERCENT (BEAKER) (test code = 2801) BLOOD [id number] 00:00:00 Test Item Value Reference Range Interpretation Comments CULTURE (BEAKER) (test No growth in 5 days code = 1095) BLOOD [id number] 00:00:00 Test Item Value Reference Range Interpretation Comments CULTURE (BEAKER) (test No growth in 5 days code = 1095) RAD, CHEST, 1 VIEW, NON [id number] 22:22:00DR Wellserring: Dr. Eric Morel for exam:->edemaShould this be performed at the bedside?->Yes [facility] : 1950 Sex: FFINAL [...] technique. Stable osseous structures. Signed: Michael Tabares [facility] Center[facility] Verified Date/Time: 12/03/2020 22:22:17 COMPREHENSIVE METABOLIC [id number] 06:26:00 Test Item Value Reference Range Interpretation [...] S NOT APPLICABLE FOR DIALYSIS PATIEN TS. Felled Seam Operator Chainstitch ID Shakir ABRAMS MSpecimen moderately [id number] 06:20:00 Test Item Value Reference Range Interpretation Comments MAGNESIUM (BEAKER) (test code = 2.3 mg/dL 1.6-2.6 627) Felled Seam Operator Chainstitch ID Shakir ABRAMS [facility] W/PLT COUNT & AUTO [id number] 06:08:00 Test Item Value Reference Range Interpretation [...] (BEAKER) (test code = 2801) COMPREHENSIVE METABOLIC [id number] 06:20:00 Test Item Value Reference Range Interpretation [...] S NOT APPLICABLE FOR DIALYSIS PATIEN TS. Felled Seam Operator Chainstitch ID - ALIZA MSpecimen slightly ictericCALCIUM, [id number] 05:40:00 Test Item Value Reference Range Interpretation Comments CALCIUM IONIZED (BEAKER) (test 1.14 mmol/L 1.12-1.27 code = 698) PH, BLOOD (BEAKER) (test code = 7.26 1810) [id number] 05:36:00 Test Item Value Reference Range Interpretation Comments MAGNESIUM (BEAKER) (test code = 2.5 mg/dL 1.6-2.6 627) Felled Se[employer] Operator [employer] ID - ALIZA [id number] 05:36:00 Test Item Value Reference Range Interpretation Comments PHOSPHORUS (BEAKER) (test code = 2.2 mg/dL 2.3-4.7 L 604) Felled Se[employer] Operator [employer]ch ID - ALIZA [id number], [id number] 05:36:00 Test Item Value Reference Range Interpretation Comments BILIRUBIN DIRECT (BEAKER) (test 1.8 mg/dL 0.1-0.5 H code = 706) Felled Seam Operator [employer] ID - ALIZA MCREATINE KINASE (CK)2020-12-02 05:36:00 Test Item Value Reference Range Interpretation Comments CREATINE KINASE TOTAL (BEAKER) (test 385 U/L 29-200 H code = 380) Felled Seam Operator [employer] ID - ALIZA MCBC W/PLT COUNT & AUTO [id number] 05:07:00 Test Item Value Reference Range Interpretation [...] (BEAKER) (test code = 2801) U/S, ABDOMINAL, [id number] 13:39:00DR JAMES Referring: Dr. Eric Neal Labs to be ordered:->Body Fluid Culture (w/Gram Stain, C\\T\\S) Labs to be ordered:- >Cell Count Reason for exam:->diagnostic. limit 2 L for therapeutic. [facility] : 1950 Sex: FFINAL REPORT U/S, ABDOMINAL, LIMITED CLINICAL HISTORY: diagnostic. Limit 2 L for therapeutic. COMPARISON: Abdominal MRI 12/06/2020 TECHNIQUE: Real time transverse and longitudinal images of the abdominal quadrants were obtained. FINDINGS / IMPRESSION: Small volume ascites, mostly perihepatic, insufficient for paracentesis, no paracentesis performed. Signed: Kell Langston Lakisha ified Date/Time: 12/01/2020 13:39:28 [place] Location: [facility] C013Y CT Body Reading Room CREATINE KINASE (CK)2020-12-01 11:58:00 Test Item Value Reference Range Interpretation Comments CREATINE KINASE TOTAL (BEAKER) (test 610 U/L 29-200 H code = 380) Felled Seam Operator [employer] ID - ALIZA MCOMPREHENSIVE METABOLIC [id number] 05:36:00 Test Item Value Reference Range Interpretation [...] S NOT APPLICABLE FOR DIALYSIS PATIEN TS. Felled Seam Operator [employer] ID - ALIZA MSpecimen slightly [id number] 05:33:00 Test Item Value Reference Range Interpretation Comments MAGNESIUM (BEAKER) (test code = 2.6 mg/dL 1.6-2.6 627) Felled Seam Operator [employer] ID - ALIZA MPROTHROMBIN [id number] 05:32:00 Test Item Value Reference Range Interpretation Comments PROTIME (BEAKER) 19.5 seconds 11.9-14.2 H (test code = 759) INR (BEAKER) (test 1.70 See_Comment [Automat ed message] code = 370) The system 8hands generated this result transmitted ref erence range: [...] mechanical heart valves.CBC W/PLT COUNT & AUTO [id number] 05:11:00 Test Item Value Reference Range Interpretation [...] (BEAKER) (test code = 2801) COMPREHENSIVE METABOLIC [id number] 07:42:00 Test Item Value Reference Range Interpretation [...] S NOT APPLICABLE FOR DIALYSIS PATIEN TS. Felled Seam Operator [employer] ID - MURALI LSpecimen slightly [id number] 07:16:00 Test Item Value Reference Range Interpretation Comments MAGNESIUM (BEAKER) 2.7 mg/dL 1.6-2.6 H Specimen slightly (test code = 627) hemolyzed Felled Seam Operator [employer] ID - MURALI LCBC W/PLT COUNT & AUTO [id number] 06:42:00 Test Item Value Reference Range Interpretation [...] PERCENT (BEAKER) (test code = 2801) PROTHROMBIN TIME/[id number] 06:15:00 Test Item Value Reference Range Interpretation Comments PROTIME (BEAKER) 20.0 seconds 11.9-14.2 H (test code = 759) INR (BEAKER) (test 1.75 See_Comment [Automat ed message] code = 370) The system 8hands generated this result transmitted ref erence range: [...] wiht mechanical heart valves.RAD, ABDOMEN/KUB, 1 VIEW [id number] 03:41:00DR JALAKYMeferring: Dr. Eric Morel for exam:->constipationShould this be performed at the bedside?->Yes [facility] : 1950 Sex: FFINAL REPORT RAD, ABDOMEN/KUB, 1 VIEW AP CLINICAL HISTORY: constipation TECHNIQUE: RAD, ABDOMEN/KUB, 1 VIEW AP COMPARISON: None IMPRESSION: The bowel gas pattern is nonspecific/nonobstructive. Yuaug-so-jwdgcnxu volume fecal burden visualized. Supine imaging insensitive for exclusion of free air. Bilateral pulmonary airspace disease present. Signed: Michael Tabares MDReport Verified Date/Time: 11/30/2020 03:41:22 BASIC METABOLIC [id number] 01:17:00 Test Item Value Reference Range Interpretation [...] S NOT APPLICABLE FOR DIALYSIS PATIEN TS. Felled Seam Operator [employer] ID - PIAYA LSpecimen slightly ictericCBC (HEMOGRAM [...] WBC 0-0 (test code = 413) POCT-GLUCOSE [id number] 20:49:00 Test Item Value Reference Range Interpretation Comments POC-GLUCOSE METER 130 mg/dL 70-110 H : [facility] (BEAKER) (test code = EDI PAINTER, 1538) 724[address]: Felled Seam Operator Chainstitch/Techni juan antonio ID = [id number] for SHERRY GHOSH RA COMPREHENSIVE METABOLIC [id number] 06:22:00 Test Item Value Reference Range Interpretation [...] S NOT APPLICABLE FOR DIALYSIS PATIEN TS. Felled Seam Operator [employer] ID - ALIZA MSpecimen slightly [id number] 06:17:00 Test Item Value Reference Range Interpretation Comments MAGNESIUM (BEAKER) (test code = 2.7 mg/dL 1.6-2.6 H 627) Felled Seam Operator [employer] ID - ALIZA MPROTHROMBIN TIME/[id number] 06:05:00 Test Item Value Reference Range Interpretation Comments PROTIME (BEAKER) 21.5 seconds 11.9-14.2 H (test code = 759) INR (BEAKER) (test 1.92 See_Comment [Automat ed message] code = 370) The system 8hands generated this result transmitted ref erence range: [...] mechanical heart valves.CBC W/PLT COUNT & AUTO [id number] 05:34:00 Test Item Value Reference Range Interpretation [...] PERCENT (BEAKER) (test code = 2801) CALCIUM, [id number] 06:38:00 Test Item Value Reference Range Interpretation Comments CALCIUM IONIZED (BEAKER) (test 1.01 mmol/L 1.12-1.27 L code = 698) PH, BLOOD (BEAKER) (test code = 7.38 1810) B-TYPE NATRIURETIC FACTOR (BNP)2020-11-28 05:27:00 Test Item Value Reference Range Interpretation Comments B-TYPE NATRIURETIC PEPTIDE (BEAKER) 465 pg/mL 0-100 H (test code = 700) Felled Seam Operator [employer] ID - EDASICOMPREHENSIVE METABOLIC [id number] 05:25:00 Test Item Value Reference Range Interpretation [...] S NOT APPLICABLE FOR DIALYSIS PATIEN TS. Felled Seam Operator Chainstitch ID - EDASISpecimen slightly [id number] 05:22:00 Test Item Value Reference Range Interpretation Comments MAGNESIUM (BEAKER) (test code = 2.5 mg/dL 1.6-2.6 627) Felled Seam Operator [employer]ch ID - [id number] 05:22:00 Test Item Value Reference Range Interpretation Comments PHOSPHORUS (BEAKER) (test code = 2.6 mg/dL 2.3-4.7 604) Felled Seam Operator [employer] ID - EDASICREATINE KINASE (CK)2020-11-28 05:22:00 Test Item Value Reference Range Interpretation Comments CREATINE KINASE TOTAL (BEAKER) (test 3438 U/L 29-200 H code = 380) Felled Seam Operator [employer]ch ID - EDASICALCIUM, [id number] 05:07:00 Test Item Value Reference Range Interpretation Comments CALCIUM IONIZED (BEAKER) (test 1.04 mmol/L 1.12-1.27 L code = 698) PH, BLOOD (BEAKER) (test code = 7.39 1810) PROTHROMBIN [id number] 05:06:00 Test Item Value Reference Range Interpretation Comments PROTIME (BEAKER) 20.3 seconds 11.9-14.2 H (test code = 759) INR (BEAKER) (test 1.79 See_Comment [Automat ed message] code = 370) The system 8hands generated this result transmitted ref erence range: [...] mechanical heart valves.CBC W/PLT COUNT & AUTO [id number] 05:00:00 Test Item Value Reference Range Interpretation [...] (BEAKER) (test code = 2801) URINALYSIS W/ [id number] 21:23:00 Test Item Value Reference Range Interpretation [...] 2 /LPF YEAST (BEAKER) (test code = 6415) Occasional SOURCE(BEAKER) (test code = 1839) Felled Seam Operator [employer] ID - [auto]Felled Seam Operator Chainstitch ID - techSODIUM, RANDOM [id number] 21:16:00 Test Item Value Reference Range Interpretation Comments SODIUM URINE (BEAKER) (test code = < meq/L 243) Reference Range: No NormalsOperator ID - BSCREATININE, RANDOM [id number] 21:13:00 Test Item Value Reference Range Interpretation Comments CREATININE URINE (BEAKER) (test 115.0 mg/dL code = 375) Reference Range: No NormalsOperator ID - BSPROTEIN, RANDOM [id number] 21:13:00 Test Item Value Reference Range Interpretation Comments PROTEIN, URINE (BEAKER) (test code = 74 mg/dL 0-14 H 1569) Felled Seam Operator [employer] ID - BSUREA NITROGEN, RANDOM [id number] 21:13:00 Test Item Value Reference Range Interpretation [...] = 413) PERIPHERAL BLOOD SMEAR - PATHOLOGIST [id number] 13:22:00 Test Item Value Reference Range Interpretation Comments PERIPHERAL SMR REVIEW No circulating blasts. (BEAKER) (test code = No significantly 2640) increased schistocytes. [id number] Constantine Linn, (BEAKER) (test code = M.D.(electronic 0814) signature) CREATINE KINASE (CK)2020-11-27 06:15:00 Test Item Value Reference Range Interpretation Comments CREATINE KINASE TOTAL (BEAKER) (test 4837 U/L 29-200 H code = 380) Felled Seam Operator [employer]ch ID - SMOperator ID - SMALPHA FETOPROTEIN (AFP), TUMOR [id number] 06:07:00 Test Item Value Reference Range Interpretation Comments ALPHA-FETOPROTEIN (BEAKER) (test code < ng/mL <10.0 = 1094) Felled Seam Operator [employer] ID - ALIZA MHEPATITIS B SURFACE [id number] 06:07:00 Test Item Value Reference Range Interpretation Comments HEPATITIS B SURFACE ANTIBODY < mIU/mL <8.0 (BEAKER) (test code = 647) Felled Seam Operator [employer] ID - ALIZA MTROPONIN [id number] 05:59:00 Test Item Value Reference Range Interpretation [...] failure, acidosis, acute neurological disease, and persistent tachyarrhythmia.Felled Seam Operator Chainstitch ID - SMCOMPREHENSIVE METABOLIC [id number] 05:50:00 Test Item Value Reference Range Interpretation [...] S NOT APPLICABLE FOR DIALYSIS PATIEN TS. Felled Seam Operator [employer]stitch ID - SMPROTHROMBIN TIME/[id number] 05:42:00 Test Item Value Reference Range Interpretation Comments PROTIME (BEAKER) 19.7 seconds 11.9-14.2 H (test code = 759) INR (BEAKER) (test 1.72 See_Comment [Automat ed message] code = 370) The system 8hands generated this result transmitted ref erence range: <=5.90. The reference range was not used to int erpret this result as normal/abnormal . Effective 03/14/2019: PT Reference Range ChangeNew: 11.9-14.2 Previous: 11.7- 14.7RECOMMENDED COUMADIN/WARFARIN INR THERAPY RANGESSTANDARD DOSE: 2.0-3.0 Includes: PROPHYLAXIS for venous thrombosis, systemic embolization; TREATMENT for venous thrombosis and/or pulmonary embolus.HIGH RISK: Target INR is 2.5-3.5 for patients wiht mechanical heart valves.[id number] 05:41:00 Test Item Value Reference Range Interpretation Comments MAGNESIUM (BEAKER) (test code = 2.3 mg/dL 1.6-2.6 627) Felled Seam Operator Chainstitch ID - [id number] 05:41:00 Test Item Value Reference Range Interpretation Comments PHOSPHORUS (BEAKER) (test code = 3.2 mg/dL 2.3-4.7 604) Felled Seam Operator [employer] ID - SMB-TYPE NATRIURETIC FACTOR (BNP)2020-11-27 05:33:00 Test Item Value Reference Range Interpretation Comments B-TYPE NATRIURETIC PEPTIDE (BEAKER) 210 pg/mL 0-100 H (test code = 700) Felled Seam Operator Chainstitch ID - SMCALCIUM, [id number] 05:27:00 Test Item Value Reference Range Interpretation Comments CALCIUM IONIZED (BEAKER) (test 1.04 mmol/L 1.12-1.27 L code = 698) PH, BLOOD (BEAKER) (test code = 7.33 1810) RETICULOCYTE [id number] 05:09:00 Test Item Value Reference Range Interpretation Comments RETICULOCYTE COUNT PCT (BEAKER) (test 2.3 % 0.5-1.7 H code = 575) Felled Seam Operator Chainstitch ID - 6000CBC W/PLT COUNT & AUTO [id number] 05:09:00 Test Item Value Reference Range Interpretation [...] (BEAKER) (test code = 2801) MR, ABDOMEN, [id number] 20:05:00DR JALAKYMeferring: Dr. Eric Champion portal vein clot and hccUnlisted Reason for Exam - Click Yes and Enter Reason Below->No[facility] : 1950 Sex: FFINAL [...] [place] Verified Date/Time: 11/26/2020 20:05:06 [place] Location: [facility] C013Y CT Body Reading Room -COV2/RT-PCR ([facility])2020-11-26 18:12:00 Test Item Value Reference Range Interpretation Comments SARS-COV2/RT-PCR (test Negative Not Detected, Negative, code = 1719137) See external report for linked test SARS-COV-2 PERFORMING LAB [facility] DENITA (test code = 0861668) Negative result for this test determines that [...] of the Act.Fact Sheet for Healthcare Prov iders:https://www.[employer]/sites/default/files/product/documents/Fact_Sheet_HC _Ivxxfpfvg_Ekxl_AAFZ-KrC-5.pdfFact Sheet for Healthcare Patients:https://www.[employer]com/sites/default/files/product/docume nts/Xyjf_Uswqc_Ddczitch_Atcc_YKWN-QcU-9.pdfPerforming Laboratory:[facility], [place] [id number] 17:43:00 Test Item Value Reference Range Interpretation Comments HAPTOGLOBIN (BEAKER) (test code = 52 mg/dL 14-258 366) Felled Seam Operator [employer] ID - BSVITAMIN B12 AND [id number] 16:08:00 Test Item Value Reference Range Interpretation Comments VITAMIN B12 659 pg/mL 213-816 (BEAKER) (test code = 774) FOLATE (BEAKER) 12.20 ng/mL See_Comment [Automated message] (test code = 362) The system which generated this result transmitted ref erence range: >=7.00. The reference range was not used to interpr et this result as normal/abnormal . Felled Seam Operator Chainstitch ID - BSVITAMIN [id number] 15:58:00 Test Item Value Reference Range Interpretation Comments VITAMIN B12 (BEAKER) (test code = 623 pg/mL 213-816 774) Felled Seam Operator Chainstitch ID - [id number] 15:58:00 Test Item Value Reference Range Interpretation Comments FERRITIN (BEAKER) (test code = 18.49 ng/mL 5.00-275.00 361) Felled Seam Operator Chainstitch ID - BSTSH/FREE T4 IF [id number] 15:58:00 Test Item Value Reference Range Interpretation Comments THYROID STIMULATING HORMONE 1.498 uIU/mL 0.350-4.940 (BEAKER) (test code = 772) Felled Seam Operator Chainstitch ID - BSTROPONIN [id number] 15:38:00 Test Item Value Reference Range Interpretation [...] failure, acidosis, acute neurological disease, and persistent tachyarrhythmia.Felled Seam Operator Chainstitch ID - BSIRON, TIBC, % SAT. (WITHOUT FERRITIN)2020-11-26 15:31:00 Test Item Value Reference Range Interpretation Comments IRON (BEAKER) (test code = 547) 17.0 ug/dL 40.0-160.0 L TOTAL IRON BINDING CAPACITY 228 ug/dL 250-450 L (BEAKER) (test code = 769) IRON % SATURATION (2) (BEAKER) 7 % 20-55 L (test code = 2590) Felled Seam Operator Chainstitch ID - BSLACTATE DEHYDROGENASE (LDH)2020-11-26 15:28:00 Test Item Value Reference Range Interpretation Comments LACTATE DEHYDROGENASE (BEAKER) (test 555 U/L 125-220 H code = 635) Felled Seam Operator Chainstitch ID - BSRETICULOCYTE [id number] 14:12:00 Test Item Value Reference Range Interpretation Comments RETICULOCYTE COUNT PCT (BEAKER) (test 2.7 % 0.5-1.7 H code = 575) Felled Seam Operator Chainstitch ID - 6000RAD, PELVIS, 1 OR 2 [id number] 10:30:00DR GOLDYeferring: Dr. Eric Morel for exam:->LEG PAINBLReason for exam:->HIP PAINBLShouldthis be performed at the bedside?->Yes [facility] : 1950 Sex: FFINAL REPORT CLINICAL HISTORY: LEG PAINHIP PAIN TECHNIQUE: AP pelvis COMPARISON: None IMPRESSION: The pelvis appears intact without evidence of fracture or dislocation on the single frontal view. Signed: Sangeeta Garces Verified Date/Time: 11/26/2020 10:30:11 [place] Location: [facility] Radiology [place] Room RAD, CHEST, 1 VIEW, NON [id number] 10:30:00DR WINSLOWeferring: Dr. Eric Morel for exam:->peripheral edemaBLReason for exam:->BLShouldthis be performed at the bedside?->Yes [facility] : 1950 Sex: FFINAL REPORT CLINICAL HISTORY: peripheral edema TECHNIQUE: 1 view of the chest. COMPARISON: 09/25/2019 IMPRESSION: Diffuse bilateral interstitial infiltrates are similar versus slightly increased in prominence. Subpulmonic pleural effusions cannot be excluded. The cardiomediastinal silhouette is magnified by technique. Elevation of the right hemidiaphragm is again seen. Signed: Sangeeta Garces Verified Date/Time: 11/26/2020 10:30:51 [place] Location: [facility] Radiology Reading Room TROPONIN [id number] 10:27:00 Test Item Value Reference Range Interpretation [...] failure, acidosis, acute neurological disease, and persistent tachyarrhythmia.Felled Seam Operator Chainstitch ID - EDASIB-TYPE NATRIURETIC FACTOR (BNP)2020-11-26 10:26:00 Test Item Value Reference Range Interpretation Comments B-TYPE NATRIURETIC PEPTIDE (BEAKER) 114 pg/mL 0-100 H (test code = 700) Felled Seam Operator Chainstitch ID - EDASICOMPREHENSIVE METABOLIC [id number] 10:23:00 Test Item Value Reference Range Interpretation [...] S NOT APPLICABLE FOR DIALYSIS PATIEN TS. Felled Seam Operator Chainstitch ID - EDASICBC W/PLT COUNT & AUTO [id number] 10:09:00 Test Item Value Reference Range Interpretation [...] 0-1 PERCENT (BEAKER) (test code = 2801) [id number] 10:47:00 Test Item Value Reference Range Interpretation Comments RPR SCREEN (BEAKER) (test code = Nonreactive Nonreactive 420) HEMOGLOBIN [id number] 08:19:00 Test Item Value Reference Range Interpretation Comments HEMOGLOBIN A1C (BEAKER) (test code = 4.4 % 4.3-6.1 368) TSH/FREE T4 IF [id number] 07:41:00 Test Item Value Reference Range Interpretation Comments THYROID STIMULATING HORMONE 1.836 uIU/mL 0.350-4.940 (BEAKER) (test code = 772) Felled Seam Operator Chainstitch ID - EDASIVITAMIN B12 AND [id number] 07:41:00 Test Item Value Reference Range Interpretation Comments VITAMIN B12 (BEAKER) (test code = 356 pg/mL 213-816 774) FOLATE (BEAKER) (test code = 362) 12.40 ng/mL >=7.00 Felled Seam Operator Chainstitch ID - EDASISARS-COV2/RT-PCR ([facility])2020-10-24 07:10:00 Test Item Value Reference Range Interpretation Comments SARS-COV2/RT-PCR (test Negative Not Detected, Negative, code = 5568747) See external report for linked test SARS-COV-2 PERFORMING LAB [facility] (test code = 9523760) Negative result for this test determines that [...] the Cheema SARS-CoV-2 assay.Fact Sheet for Healthcare Providers:https://www.[employer]/derrick/RT_SAR Y-ErU-9_EBC_Tbhk_Xnrwd_04-101916.pdfFact Sheet for Healthcare Patients:https://www.[employer]/s al/FQ_DNRH-ZnZ-5_Qxtxebp_Dmjx_Aitxi_CG_27-385442S9.pdfPerforming Laboratory:[address] [place] [address] BASIC METABOLIC [id number] 06:47:00 Test Item Value Reference Range Interpretation [...] S NOT APPLICABLE FOR DIALYSIS PATIEN TS. Felled Seam Operator Chainstitch ID - PIAYA [id number] 06:47:00 Test Item Value Reference Range Interpretation Comments MAGNESIUM (BEAKER) (test code = 2.0 mg/dL 1.6-2.6 627) Felled Seam Operator Chainstitch ID - MURALI [id number] 06:47:00 Test Item Value Reference Range Interpretation Comments PHOSPHORUS (BEAKER) (test code = 2.6 mg/dL 2.3-4.7 604) Felled Seam Operator Chainstitch ID - MURALI LLIPID [id number] 06:47:00 Test Item Value Reference Range Interpretation [...] Borderline 130-159 High 160-189 Very High >=190 Felled Seam Operator Chainstitch ID - MURALI LCBC W/PLT COUNT & AUTO [id number] 06:07:00 Test Item Value Reference Range Interpretation [...] (BEAKER) (test code = 2801) CT, CTANGIO [id number] 00:46:00DR SURENDRALAKYMeferring: Dr. Eric Sepulveda Reason for Exam - Click Yes and Enter Reason Below->No [facility] : 1950 Sex: FFINAL REPORT EXAM: CT, CT Angio, Brain. CT Carotid Angio CLINICAL HISTORY: Neuro deficit, acute, stroke suspected COMPARISON: Noncontrast head CT 10/23/2020, 3:15 PM. TECHNIQUE: Noncontrast head CT was performed. CT angiogram of the head and neck was performed with intravenous contrast. MIP and volume rendered reformats were obtained. This exam was performed according to our depar tmental dose optimization program which includes automated [...] occipital lobe consistent with an evolving acute PERSONAL CARE ATTENDANT territory infarct. There is no acute [...] segment of the left posterior cerebral artery (PERSONAL CARE ATTENDANT). There is good flow related enhancement [...] left caudate head lacunar infarct.Evolving acute left PERSONAL CARE ATTENDANT territory infarct.No acute intracranial hemorrhage or mass effect. CTA head: Occlusion of the P2 segment of the left PERSONAL CARE ATTENDANT. CTA neck:Mild short segment stenoses of the bilateral proximal cervical ICAs.No vessel occlusion or hemodynamically significant stenosis by NASCET criteria.Pulmonary findings which may represent pulmonary interstitial edema. A chest radiograph the helpful for further evaluation.Signed: Amy Villavicencioort Verified Date/Time: 10/24/2020 00:46:37 CT, CAROTID, [id number] 00:46:00DR GOLDYeferring: Dr. Eric Sepulveda Reason for Exam - Click Yes and Enter Reason Below->No [facility] : 1950 Sex: FFINAL [...] occipital lobe consistent with an evolving acute PERSONAL CARE ATTENDANT territory infarct. There is no acute [...] P2 segmentof the left posterior cerebral artery (PERSONAL CARE ATTENDANT). There is good flow related enhancement [...] left caudate head lacunar infarct.Evolving acute left PERSONAL CARE ATTENDANT territory infarct.No acute intracranial hemorrhage or mass effect. CTA head: Occlusion of the P2 segment of the left PERSONAL CARE ATTENDANT. CTA neck:Mild short segment stenoses of the bilateral proximal cervical ICAs.No vessel occlusion or hemodynamically significant stenosis by NASCET criteria.Pulmonary findings which may represent pulmonary interstitial edema. A chest radiograph the helpful for further evaluation. Signed: Amy Villavicencio MDReport Verified Date/Time: 10/24/2020 00:46:37 C-REACTIVE [id number] 20:16:00 Test Item Value Reference Range Interpretation Comments C-REACTIVE PROTEIN (BEAKER) (test 0.67 mg/dL 0.00-0.50 H code = 676) Felled Seam Operator Chainstitch ID - DBMR, BRAIN, WITHOUT [id number] 18:51:00DR GOLDYeferring: Dr. Eric Sepulveda Reason for Exam - Click Yes and Enter Reason Below->No [facility] : 1950 Sex: FFINAL [...] of the corpus callosum, consistent with acute PERSONAL CARE ATTENDANT territory infarct. No acute intracranial hemorrhage. [...] \\T\\ scalp: Unremarkable. 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 Signed: Shefali Marcos Verified Date/Time: 10/23/2020 18:51:36 TROPONIN Timmy 2020-10-23 15:58:00 Test Item Value Reference Range [...] failure, acidosis, acute neurological disease, and persistent tachyarrhythmia.Felled Seam Operator Chainstitch ID - DBCOMPREHENSIVE METABOLIC [id number] 15:51:00 Test Item Value Reference Range Interpretation [...] S NOT APPLICABLE FOR DIALYSIS PATIEN TS. Felled Seam Operator Chainstitch ID - DBCT, BRAIN/STROKE [id number] 15:34:00DR GOLDYeferring: Dr. Eric Morel for exam:->Right visual field deficit [facility] : 1950 Sex: FFINAL REPORT CT, BRAIN/STROKE [...] occipital lobe is suspicious for acute left PERSONAL CARE ATTENDANT territory infarct.2.No acute intracranial hemorrhage.3.Generalized parenchymal volume loss andchronic microvascular changes, progressed since 2015. The findings were discussed with Dr. KATRIN MITCHELL MD on 10/23/2020 3:34 PM. Signed: Shefali Marcos Verified Date/Time: 10/23/2020 15:34:36 PROTHROMBIN TIME/[id number] 15:21:00 Test Item Value Reference Range Interpretation [...] is 2.5-3.5 for patients wiht mechanical heart valves.PT/[id number] 15:21:00 Test Item Value Reference Range Interpretation [...] mechanical heart valves.CBC W/PLT COUNT & AUTO [id number] 15:12:00 Test Item Value Reference Range Interpretation [...] (BEAKER) (test code = 2801) URINALYSIS W/ [id number] 15:23:00 Test Item Value Reference Range Interpretation [...] code = 1521) SOURCE(BEAKER) (test code = 1071) Felled Seam Operator Chainstitch ID - [auto]Felled Seam Operator Chainstitch ID - techB-TYPE NATRIURETIC FACTOR (BNP)2020-09-27 11:13:00 Test Item Value Reference Range Interpretation Comments B-TYPE NATRIURETIC PEPTIDE (BEAKER) 156 pg/mL 0-100 H (test code = 700) Felled Se[employer] Operator [employer] ID - DBCOMPREHENSIVE METABOLIC [id number] 10:52:00 Test Item Value Reference Range Interpretation [...] S NOT APPLICABLE FOR DIALYSIS PATIEN TS. Felled Seam Operator [employer] ID - [id number] 10:52:00 Test Item Value Reference Range Interpretation Comments MAGNESIUM (BEAKER) (test code = 1.7 mg/dL 1.6-2.6 627) Felled Seam Operator [employer] ID - [id number] 10:52:00 Test Item Value Reference Range Interpretation Comments PHOSPHORUS (BEAKER) (test code = 2.0 mg/dL 2.3-4.7 L 604) Felled Seam Operator [employer] ID - [id number] 10:41:00 Test Item Value Reference Range Interpretation Comments AMMONIA (BEAKER) (test code = 348) 36 mol/L 18-72 Felled Seam Operator [employer] ID - DBCBC W/PLT COUNT & AUTO [id number] 10:35:00 Test Item Value Reference Range Interpretation [...] code = 2801) ALPHA FETOPROTEIN (AFP), TUMOR [id number] 17:48:00 Test Item Value Reference Range Interpretation Comments ALPHA-FETOPROTEIN (BEAKER) (test 2.3 ng/mL <10.0 code = 1094) Felled Se[employer] Operator [employer] ID - BSBASIC METABOLIC [id number] 16:33:00 Test Item Value Reference Range Interpretation [...] S NOT APPLICABLE FOR DIALYSIS PATIEN TS. Felled Seam Operator [employer] ID - BSHEPATIC FUNCTION [id number] 16:29:00 Test Item Value Reference Range Interpretation [...] (test code = 21 U/L 6-55 347) Felled Seam Operator [employer] ID - BSCBC W/PLT COUNT & AUTO [id number] 16:17:00 Test Item Value Reference Range Interpretation [...] PERCENT (BEAKER) (test code = 2801) PROTHROMBIN [id number] 16:16:00 Test Item Value Reference Range Interpretation [...] (test 2.8 ng/mL <10.0 code = 1094) Felled Seam Operator [employer] ID - DBBASIC METABOLIC [id number] 18:13:00 Test Item Value Reference Range Interpretation [...] S NOT APPLICABLE FOR DIALYSIS PATIEN TS. Felled Seam Operator [employer]ch ID - DBHEPATIC FUNCTION [id number] 18:13:00 Test Item Value Reference Range Interpretation [...] Specimen slightly (test code = 347) hemolyzed Felled Seam Operator [employer] ID - DBPROTHROMBIN [id number] 17:20:00 Test Item Value Reference Range Interpretation [...] ng/mL <10.0 code = 1094) BASIC METABOLIC [id number] 13:59:00 Test Item Value Reference Range Interpretation [...] DIALYSIS PATIEN TS. Specimen slightly ictericHEPATIC FUNCTION [id number] 13:59:00 Test Item Value Reference Range Interpretation [...] 21 U/L 6-55 347) Specimen slightly ictericPROTHROMBIN [id number] 13:43:00 Test Item Value Reference Range Interpretation [...] mechanical heart valves.CBC W/PLT COUNT & AUTO [id number] 13:37:00 Test Item Value Reference Range Interpretation [...] (BEAKER) (test code = 2801) BASIC METABOLIC [id number] 18:07:00 Test Item Value Reference Range Interpretation [...] DIALYSIS PATIEN TS. Specimen slightly ictericHEPATIC FUNCTION [id number] 18:07:00 Test Item Value Reference Range Interpretation [...] (test code = 347) hemolyzed Specimen slightly ictericPT/[id number] 17:56:00 Test Item Value Reference Range Interpretation [...] mechanical heart valves.CBC W/PLT COUNT & AUTO [id number] 17:44:00 Test Item Value Reference Range Interpretation [...] (test code = 2801) RAD, CHEST, 2 [id number] 17:15:00Referring: Dr. Eric Morel for exam:->sobFINAL REPORT [...] airspace opacity, possibly pneumonia. Signed: Esvin Valladares Verified Date/Time: 09/25/2019 17:15:28 Reading Location: [facility] Radiology Reading Room LACTIC ACID, [id number] 09:40:00 Test Item Value Reference Range Interpretation Comments LACTATE BLOOD VENOUS 2.7 mmol/L 0.5-2.2 H Specime n slightly (2) (BEAKER) (test hemolyzed code = 2873) Specimen slightly ictericCOMPREHENSIVE METABOLIC [id number] 09:31:00 Test Item Value Reference Range Interpretation [...] Specimen slightly ictericCBC W/PLT COUNT & AUTO [id number] 09:24:00 Test Item Value Reference Range Interpretation [...] = 2801) RAD, CHEST, 1 VIEW, NON [id number] 09:00:00Referring: Dr. Eric Morel for exam:->SHORTNESS OF BREATHShould [facility]?->YesFINAL REPORT INDICATION: SHORTNESS OF BREATH COMPARISON: [...] Verified Date/Time: 09/19/2019 09: 00:49 Reading Location: [facility] Radiology Reading Room BLOOD [id number] 01:00:00 Test Item Value Reference Range Interpretation Comments CULTURE (BEAKER) (test No growth in 5 days code = 1095) BLOOD [id number] 01:00:00 Test Item Value Reference Range Interpretation Comments CULTURE (BEAKER) (test No growth in 5 days code = 1095) COMPREHENSIVE METABOLIC [id number] 07:18:00 Test Item Value Reference Range Interpretation [...] APPLICABLE FOR DIALYSIS PATIEN TS. LACTIC ACID, [id number] 06:20:00 Test Item Value Reference Range Interpretation Comments LACTATE BLOOD VENOUS (2) (BEAKER) 1.2 mmol/L 0.5-2.2 (test code = 2872) CBC W/PLT COUNT & AUTO [id number] 06:02:00 Test Item Value Reference Range Interpretation [...] (BEAKER) (test code = 2801) U/S, ABDOMINAL, [id number] 02:23:00Referring: [facility]. [facility] Add comment if clarification [...] Verified Date/Time: 09/11/2019 02:23:37 CT, CHEST, WITHOUT [id number] 18:38:00Referring: Dr. Eric Morel for exam:->ABDOMINAL PAINWhat [...] MDReport Verified Date/Time: 09/10/2019 18:38:06 Reading Location: [facility] C0[facility] Consult Reading Room POCT-LACTIC ACID, [id number] 16:53:00 Test Item Value Reference Range Interpretation Comments POC-LACTIC ACID, 3.1 mmol/L 0.9-1.7 H TESTED AT [facility] [address] V[address] (BEAKER) (test [place] code = 2805) [address] RAD, CHEST, 1 VIEW, NON [id number] 16:48:00Referring: Dr. Eric Morel for exam:->ABDOMINAL PAINShould [...] MDReport Verified Date/Time: 09/10/2019 16:48:56 Reading Location: [facility] Reading Room [facility] METABOLIC [id number] 16:27:00 Test Item Value Reference Range Interpretation [...] DIALYSIS PATIEN TS. Specimen slightly ictericHEPATIC FUNCTION [id number] 16:27:00 Test Item Value Reference Range Interpretation [...] Specimen slightly ictericCBC W/PLT COUNT & AUTO [id number] 16:15:00 Test Item Value Reference Range Interpretation [...] PERCENT (BEAKER) (test code = 2801) TISSUE [id number] 15:15:00Surgical Pathology Report Case: [id number] Authorizing Provider: Elvira James MD Collected: 08/13/2019 0950 Ordering Location: [facility] Endoscopy Received: 08/13/2019 1421 Services Pathologist: Constantine Linn MD Specimens: A) - Small Bowel, NOS, small bowel biopsy and antrum biopsyB) - Polyp, Colon - Sigmoid, sigmoid polyp - multiple PART A SMALL BOWEL AND GASTRIC ANTRUM BIOPSY:ANTRAL MUCOSA WITH NONSPECIFIC REACTIVE GASTROPATHY.SEPARATELY IDENTIFIED SMALL INTESTINAL MUCOSA WITHPRESERVED VILLOUS ARCHITECTURE.NO GRANULOMAS, DYSPLASIA, OR INVASIVE CARCINOMA SEEN.PART B SIGMOID COLON POLYP (multiple), POLYPECTOMY:HYPERPLASTIC POLYP, MULTIPLE. Signing Pathologist Direct Phone Line: [phone] signed by Constantine Linn MD on 08/14/2019 at 3:15 [id number] colonoscopyA. Small bowel, NOS, small bowel biopsy [...] in toto in block B1. HL/plPerformed. [facility], Department of Pathology, [address] [place] [address], [facility], [address] [place] [address], [facility], [facility] of [facility]ology, [address] [place] [address], PDT W/PLT COUNT & AUTO [id number] 07:33:00 Test Item Value Reference Range Interpretation [...] code = 2801) ALPHA FETOPROTEIN (AFP), TUMOR [id number] 19:11:00 Test Item Value Reference Range Interpretation Comments ALPHA-FETOPROTEIN (BEAKER) (test 2.8 ng/mL <10.0 code = 1094) BASIC METABOLIC [id number] 13:49:00 Test Item Value Reference Range Interpretation [...] DIALYSIS PATIEN TS. Specimen slightly ictericHEPATIC FUNCTION [id number] 13:49:00 Test Item Value Reference Range Interpretation [...] Specimen slightly ictericCBC W/PLT COUNT & AUTO [id number] 13:40:00 Test Item Value Reference Range Interpretation [...] PERCENT (BEAKER) (test code = 2801) PROTHROMBIN [id number] 13:37:00 Test Item Value Reference Range Interpretation [...] 2.5-3.5 for patients wiht mechanical heart valves.TISSUE [id number] 09:29:00Surgical Pathology Report Case: [id number] Authorizing Provider: Elvira James MD Collected: 08/07/2018 0914 Ordering Location: [...] IS NEGATIVE. Signing Pathologist Direct Phone Line: [phone] signed by Constantine Linn MD on 08/09/2018 at 9:29 [id number], [id number] screening A. Small bowel. B. Antrum Specimen is received in two containers of formalin both labeled with the patient's information.Specimen A: Labeled "small bowel biopsy" consists of a 0.2 cm fragment of eng tissuesubmitted in A1.Specimen B: Labeled "antrum" consists of two fragments of eng tissue measuring 0.1 and 0.3 cm, submitted in B1. CG/ew PERFORMED. The following special studies were performed on this case and the interpretation is incorporated in the diagnostic report above:BLOCK B1- GALLO ROCHA [id number] 08:31:00Surgical Pathology Report Case: [id number] Authorizing Provider: Elvira James MD Collected: 01/27/2018 1140 Ordering Location: [facility] Endoscopy Received: 01/27/2018 1533 Services Pathologist: Constantine Linn MD Specimen: Biopsy, Gastric, ANTRAL BX/FORCEP PART A GASTRIC ANTRUM BIOPSY:MILD CHRONIC INACTIVE GASTRITIS.WARTHIN STARRY STAIN FOR HELICOBACTER IS NEGATIVE. Signing Pathologist Direct Phone Line: [phone] signed by Constantine Linn MD on 01/30/2018 at 8:31 [id number], [id number] cirrhosis. Gastric antrum biopsy In formalin labeled "biopsy, gastric", description "antral biopsy" are three fragments measuring 0.6 x 0.5 x 0.1 cm in aggregate. Entirely submitted A1. DB/bc The following special studies were performed on this case and the interpretation is incorporated in the diagnostic report above:BLOCK A1- WARTHIN STARRYMR, ABDOMEN, [id number] 09:41:00Referring: Dr. Eric Moscoso REPORT History: Portal [...] main portal and superior mesentericveins. Signed: Lashae Merazort Verified Date/Time: 01/19/2018 09:41:39 Reading Location: [facility] Diagnostic Imaging Reading Room - [place] [address] -[id number] 08:28:00 Test Item Value Reference Range Interpretation Comments POC-CREATININE 0.7 mg/dL 0.6-1.3 TESTED AT [facility] [address] ([facility]) (test [place] code = 1859) [address] POC-EGFR ([facility]) 83 mL/min/1.73M2 (test code = 1860) MR, ABDOMEN, [id number] 15:45:00Referring: Dr. Eric Morel for Exam:- >cirrhosis, [...] main portal vein and SMV. Signed: Jonn Aceport Verified Date/Time: 07/29/2017 15:45:59 Bev shi Location: [address] Radiology Reading Room [id number] 10:20:00 Test Item Value Reference Range Interpretation Comments POC-CREATININE 0.8 mg/dL 0.6-1.3 TESTED AT [facility] [address] ([facility]) (test [place] code = 1859) [address] POC-EGFR ([facility]) 72 mL/min/1.73M2 (test code = 1860) TISSUE [id number] 13:53:00Surgical Pathology Report Case: [id number] Authorizing Provider: Elvira James MD Collected: 03/21/2017 0946 Ordering Location: [facility] Endoscopy Received: 03/21/2017 1202 Services Pathologist: Re Engel MD Specimen: Biopsy, Gastric, ANTRAL BX/FORCEP STOMACH, ANTRUM, BIOPSY: - ANTRAL MUCOSA WITH CHRONIC INACTIVE GASTRITIS, MILD MUCOSAL CONGESTION, AND INTESTINAL METAPLASIA [id number] ascitesAntrum gastric biopsyThe specimen is received in a formalin-filled container and labeled with the patient's information and labeled "antral gastric biopsy" and consists of a 0.1 cm fragment of eng soft tissue, submitted entirely A1. CG/plPerformed.The following special studies were performed on this case and the interpretation is incorporated in the diagnostic report above:Warthin Starry stain negative for Helicobacter pylori organisms. [id number] 07:58:00 Test Item Value Reference Range Interpretation Comments POC-POTASSIUM 4.8 meq/L 3.6-5.5 TESTED AT [facility] [address] (BEAKER) (test code [facility] [address] = 1540) CBC W/PLT COUNT & AUTO [id number] 12:57:00 Test Item Value Reference Range Interpretation [...] code = 417) 0.00ALPHA FETOPROTEIN (AFP), TUMOR [id number] 12:30:00 Test Item Value Reference Range Interpretation Comments ALPHA-FETOPROTEIN (BEAKER) (test 3.1 ng/mL <10.0 code = 1094) Effective 09/03/2014: Reference Range ChangeNew: <10.0 Previous: 0.0-8.0 HEPATIC FUNCTION [id number] 12:10:00 Test Item Value Reference Range Interpretation [...] = 14 U/L 6-55 347) BASIC METABOLIC [id number] 12:10:00 Test Item Value Reference Range Interpretation [...] S NOT APPLICABLE FOR DIALYSIS PATIEN TS. [id number] 12:01:00 Test Item Value Reference Range Interpretation Comments FIBRINOGEN LEVEL (BEAKER) (test 269 mg/dl 225-434 code = 658) PROTHROMBIN [id number] 12:00:00 Test Item Value Reference Range Interpretation [...]
[2022-10-04] MEDS: LORazepam 2 MG/ML VIAL IV PRN ×2 (10:35→20:13)
--- NOTE | 2022-10-04 17:44 | P.HP ---
Certification for Inpatient Patient admitted to: Inpatient With expected LOS: >2 Midnights Patient will require the following post-hospital care: Hospice Practitioner: I am a practitioner with admitting privileges, knowledge of patient current condition, hospital course, and medical plan of care. Services: Services provided to patient in accordance with Admission requirements found in Title 42 Section 412.3 of the Code of Federal Regulations Patient History Date of Service: 10/04/22 Reason for admission: END STAGE LIVER FAILURE History of Present Illness: FRANCO HAS CIRRHOSIS OF LIVER FROM [place]. FIRST TIME I SAW HER ABOUT 4 YEARS AGO AND DIAGNOSED CIRRHOSIS GAVE HER SPIRONOALCTONE AND TORSEMIDE. SHE DID WELL UNTIL NOW. SHE CAME TO HOSPITAL WITH A FALL. WE FIND THAT SHE HAS DIFFUSE EDEMA INCLUDING PULMONARY EDEMA. SHE FAILED TO RESPOND TO IV LASIX AND LATER LASIX DRIP WITH ALBUMIN SHE HAS THIRD SPACING. SHE BECAME MORE LETHARGIC YEST OTONIEL, I CHECKED HER ABG AND FOUND THAT SHE WAS ALREADY HAVING HYPERCAPNEA RELATED TO RESPIRATORY FAILURE. I ASKED FAMILY TO CONSIDER HOSPICE I DID NOT SEE ANY CAN TESTER CURE FOR HER. FAMILY WANTED TO TAKE HER TO [facility] IN [place] AND ONCE AGAIN I ADVISED THAT THERE IS NOT MUCH THEY CAN DO. I GAVE ORDER TO WORK ON TRANSFER. MEANWHILE IN HOURS SHE GOT RAPIDLY WORSE. THIS AM SHE HAS DYSPNEA THAT IS WORSE AND SHE HAS BECOME COMATOSE. ALL SISTERS ARE AT BEDSIDE AND THEY WANTED HOSPICE. THEY WANTED MOTHER TO BE COMFORTABLE NOW SHE IS ALREADY STRUGGLING. I CALLED MEAT COUNTER CLERK AND TOOK CARE OF REFERRAL AND GAVE VERBAL ORDERS TO NURSE. THEY WERE HAPPY THAT SHE GOT HER COMFORT CARE MEDS LIKE DILAUDID AND ATIVAN QUICKLY AND DID NOT HAVE TO WAIT FOR HOURS. Allergies Penicillins Allergy (Verified 09/22/15 17:03) Hives Home medications list reviewed: Yes Home Medications: Lactulose 30 ml PO TID 09/23/19 Rifaximin [Xifaxan] 1 tab PO BID 09/23/19 Spironolactone 50 mg PO DAILY 09/30/22 Torsemide [Soaanz] 20 mg PO DAILY 09/30/22 Aspirin [Aspirin EC 81 MG] 81 mg PO DAILY 10/01/22 Rivastigmine Patch [Exelon 9.5 mg Patch] 9.5 mg TD DAILY 10/01/22 - Past Medical/Surgical History Has patient received pneumonia vaccine in the past: Yes Diabetic: No -: Pulmonary Edema -: Cirrhosis - Social History Smoking Status: Never smoker Alcohol use: No CD- Drugs: No Caffeine use: Yes Review of Systems is unable to be obtained Physical Examination - Vital Signs Temperature: 97.2 F Blood Pressure: 80/37 Pulse: 71 Respirations: 18 Pulse Ox (%): 92 - Physical Exam General: Moderate distress, Severe distress, Comatose, Obese HEENT: Atraumatic Neck: Supple, JVD not distended Respiratory: Diminished (RAPID) Cardiovascular: Regular rate/rhythm, Normal S1 S2 Gastrointestinal: Normal bowel sounds, No tenderness Musculoskeletal: No tenderness Integumentary: No rashes Neurological: Other Lymphatics: No axilla or inguinal lymphadenopathy Assessment and Plan - Problems (Diagnosis) (1) Hepatic encephalopathy Current Visit: Yes Status: Acute Plan: AT THIS TIME SHE IS COMATOSE AND MEDS WILL NOT WORK. (2) Respiratory failure Current Visit: Yes Status: Acute Plan: FAMILY ABOVE UNDERSTANDS AND DOES NOT WANT MOTHER TO SUFFER. HOSPICE HAS BEEN CALLED IN. MEDICATIONS FOR COMFORT LIKE DILAUDID AND ATIVAN CAN BE GIVEN ONLY AFTER HOSPICE HAS BEEN SIGNED UP AND SHE IS DNR. WITHOUT HOSPICE DESIGNATION IT IS NOT ETHICAL TO GIVE MEDICATIONS THAT WILL SUPPRESS RESPIRATION THEY ARE GIVEN FOR COMFORT ONLY TO LET HER PASS PEACEFULLY. Qualifiers: Chronicity: acute (3) Cirrhosis of liver Current Visit: No Status: Chronic Plan: FROM STEATOHEPATITIS. SHE IS END STAGE NOW. - Advance Directives Does patient have a Living Will: No Does patient have a Durable POA for Healthcare: No
[2022-10-04 21:45] VITALS: O2SAT 100
[2022-10-04] MEDS: HYDROMORPHONE HCL 1 MG/ML INJ IV PRN (22:41)
[2022-10-05] MEDS: LORazepam 2 MG/ML VIAL IV PRN ×2 (12:38→19:26)
--- NOTE | 2022-10-05 12:45 | P.PN ---
Subjective Date of Service: 10/05/22 Chief Complaint: END STAGE LIVER FAILURE Subjective: Worsening HEMINIA WAS LETHARGIC YESTERDAY, SHE RECOGNIZED SOME PEOPLE BUT TODAY VERY SOMNOLENT AND NOT BEING ABLE TO BE AWAKE. TALKED TO DAUGHTER AT BEDSIDE. THEY HAVE FAMILY COMING AND WANT TO KEEP BIPAP UNTIL THEN. Review of Systems is unable to be obtained Physical Examination - Vital Signs Temperature: 97.5 F Blood Pressure: 97/46 Pulse: 81 Respirations: 16 Pulse Ox (%): 98 - Physical Exam General: Severe distress, Obese HEENT: Atraumatic, PERRLA, EOMI Neck: JVD distended Respiratory: Diminished (RPAID SHALLOW) Cardiovascular: Regular rate/rhythm Gastrointestinal: Normal bowel sounds, No tenderness Musculoskeletal: No tenderness Integumentary: No rashes Lymphatics: No axilla or inguinal lymphadenopathy - Studies Medications List Reviewed: Yes Assessment And Plan - Current Problems (Diagnosis) (1) Hepatic encephalopathy Current Visit: Yes Status: Acute Plan: AT THIS TIME SHE IS COMATOSE AND MEDS WILL NOT WORK. BP DROPPING. THIS IS SIGN OF DECINE. (2) Respiratory failure Current Visit: Yes Status: Acute Plan: FAMILY ABOVE UNDERSTANDS AND DOES NOT WANT MOTHER TO SUFFER. HOSPICE HAS BEEN CALLED IN. MEDICATIONS FOR COMFORT LIKE DILAUDID AND ATIVAN CAN BE GIVEN ONLY AFTER HOSPICE HAS BEEN SIGNED UP AND SHE IS DNR. WITHOUT HOSPICE DESIGNATION IT IS NOT ETHICAL TO GIVE MEDICATIONS THAT WILL SUPPRESS RESPIRATION THEY ARE GIVEN FOR COMFORT ONLY TO LET HER PASS PEACEFULLY. FAMILY UNDERSTANDS HOW LUNGS SHOW EDEMA SHE HAS LOW ALBUMIN. SHE DID NOT TOLERATE LASIX DRIP AND SHE DID NOT SHOW ANY IMPROVEMENT IN THE NEED OF BIPAP. HER OXYGEN KEPT ON DROPPING AND CARBON DIOXIDE RAISED. SHE IS TERMINAL WITH TWO MAJOR ISSUES NOW. Qualifiers: Chronicity: acute (3) Cirrhosis of liver Current Visit: No Status: Chronic Plan: FROM STEATOHEPATITIS. SHE IS END STAGE NOW.
[2022-10-05] MEDS: HYDROMORPHONE HCL 1 MG/ML INJ IV PRN (23:29)
[2022-10-06 08:04] VITALS: BP 101/44; TEMP 97.9
[2022-10-06] MEDS: HYDROMORPHONE HCL 1 MG/ML INJ IV PRN ×2 (08:52→13:08)
[2022-10-06] MEDS: LORazepam 2 MG/ML VIAL IV PRN ×2 (08:52→13:09)
== END 2022-10-06 13:25 | disposition expired | DRG 951 ==
LOC: 4TH 08:50
PROVIDERS: ADMIT Internal Medicine; ATTEND Internal Medicine
DX: Z51.5 Encounter for palliative care (principal)
CPT/HCPCS: 94660; J1170